=== PATIENT | male | born 1970 | race Caucasian/White ===

== ENCOUNTER 2019-04-22 02:29 | Emergency (ER) | payer MEDICAID, SELFPAY ==
[2019-04-22 02:34] VITALS: BMI 22.2
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
[2019-04-22 02:58] VITALS: RESP 16
[2019-04-22] MEDS: morphine 4 mg/mL SDV 1 mL IVP (02:58)
[2019-04-22 03:18] LABS: INR 0.99 (0.8-1.2)
[2019-04-22 03:25] LABS: Alanine Aminotransferase 14 U/L (0-41); Albumin Level 4.3 g/dL (3.5-5.2); Alkaline Phosphatase 139 IU/L (40-130); Anion Gap 15.8 (5-19); Aspartate Amino Transferase 25 U/L (0-40); Blood Urea Nitrogen 15 mg/dL (6-20); Calcium 10.9 mg/Dl (8.6-10.0); Carbon Dioxide 24 mmol/L (22-29); Chloride 103 mmol/L (98-107); Glomerular Filtration Rate 71.1 mL/min (90-130); Glucose 107 mg/dL (74-109); Potassium 3.8 mmol/L (3.5-5.1); Sodium 139 mmol/L (136-145); Total Bilirubin 1.2 mg/dL (0.15-1.2); Total Protein 7.3 g/dL (6.6-8.7)
[2019-04-22 03:31] LABS: Alcohol Level < 10 mg/dL (0-10)
[2019-04-22 03:58] LABS: Basophils % 0.1 %; Eosinophils # 0.2 10^3/uL (0.0-0.8); Eosinophils % 1.4 %; Hematocrit 40.1 % (42.0-52.0); Hemoglobin 13.5 g/dL (11.7-16.6); Lymphocytes # 3.1 10^3/uL (0.8-4.8); Lymphocytes % 25.8 %; Mean Corpuscular HGB Conc 33.7 g/dL (30.0-36.0); Mean Corpuscular Volume 86.2 fL (80-94); Mean Platelet Volume 10.7 fL (7.4-10.4); Monocytes # 0.7 10^3/uL (0.2-0.9); Monocytes % 5.5 %; Neutrophils # 7.9 10^3/uL (1.8-7.7); Neutrophils % 66.9 %; Nucleated Red Blood Cells % 0 %; Platelet Count 320 10^3/cmm (130-400); Red Blood Count 4.65 10^6/uL (4.1-5.3); Red Cell Distribution Width 13.6 % (12.1-15.1); White Blood Count 11.8 10^3/uL (4.0-10.0)
[2019-04-22] MEDS: iohexol 300 mg/mL 100 mL Btl IV (04:05)
[2019-04-22 04:52] VITALS: BP 118/79; PULSE 102; RESP 16; TEMP 36.8; O2SAT 98
== END 2019-04-22 04:53 | disposition home or self-care (01) ==
PROVIDERS: Emergency Provider Emergency Medicine; Family Provider Internal Medicine
DX: S16.1XXA Strain of muscle, fascia and tendon at neck level, initial encounter (principal); V59.9XXA Occupant (driver) (passenger) of pick-up truck or van injured in unspecified traffic accident, initial encounter; F17.210 Nicotine dependence, cigarettes, uncomplicated
CPT/HCPCS: 70450; 71260; 72125; 74177; 80053; 80307; 85025; 85610; 96375; 99281; J2270; Q9967

== ENCOUNTER 2019-05-13 10:42 | Outpatient (CLI) | payer MEDICAID, SELFPAY ==
--- NOTE | 2019-05-13 11:01 | XR_ITS ---
WS: [id number] LATERAL CERVICAL SPINE: 3 view. Lateral radiographs are performed in upright neutral, flexion and extension to the patient's toleranc e. HISTORY: NECK PAIN, CERVICAL DISC DISORDER WITH MYELOPATHY COMPARISON: 02/10/2019 Straightening and reversal normal cervical lordosis. Reversal centered at C5-6. Moderate disc space n arrowing and osteophytosis at C5, C6 and C7. No fractures. Posterior alignment is normal. With flexio n and extension no significant instability. No soft tissue abnormality. XR/XR cervical spine fl/ex [id number] IMPRESSION: 1. Straightening and slight reversal normal cervical lordosis. 2. No instability with flexion or extension. 3. Moderate spondylitic changes at C5-6 and C6-7. Similar to the prior study.
== END 2019-05-13 10:43 | disposition home or self-care (01) ==
LOC: RADWPI 10:46
PROVIDERS: Family Provider Internal Medicine; Visit Provider Licensed Practical Nurse
DX: M50.00 Cervical disc disorder with myelopathy, unspecified cervical region (principal)
CPT/HCPCS: 72040

== ENCOUNTER → 2019-05-28 08:39 | Outpatient (BNVA) | payer MEDICAID, SELFPAY | PROVIDERS: Family Provider Internal Medicine; Referring Provider Licensed Practical Nurse; Visit Provider Psychiatry & Neurology Neurology | DX: G56.02 Carpal tunnel syndrome, left upper limb (principal); M54.2 Cervicalgia; F17.210 Nicotine dependence, cigarettes, uncomplicated | CPT/HCPCS: 95886; 95910 ==

== ENCOUNTER → 2019-06-13 10:18 | Outpatient (BNVA) | payer MEDICAID, SELFPAY | PROVIDERS: Family Provider Internal Medicine; PCP Internal Medicine; Visit Provider Anesthesiology Pain Medicine | DX: M79.18 Myalgia, other site (principal); M54.12 Radiculopathy, cervical region; M54.2 Cervicalgia; M47.812 Spondylosis without myelopathy or radiculopathy, cervical region | CPT/HCPCS: 20553; 99999; J1030; J3490 ==

== ENCOUNTER 2019-06-18 11:35 | Outpatient (RCR) | payer SELFPAY | END 2019-07-08 23:59 | disposition home or self-care (01) | LOC: SPT 11:35 | PROVIDERS: Family Provider Internal Medicine; PCP Internal Medicine; Referring Provider Licensed Practical Nurse; Visit Provider Licensed Practical Nurse | DX: M54.2 Cervicalgia (principal) | CPT/HCPCS: 97110; 97161 ==

== ENCOUNTER → 2019-06-27 08:41 | Outpatient (BNVA) | payer MEDICAID, SELFPAY | PROVIDERS: Family Provider Internal Medicine; PCP Internal Medicine; Visit Provider Nurse Practitioner | DX: F15.20 Other stimulant dependence, uncomplicated (principal); F12.20 Cannabis dependence, uncomplicated; F31.32 Bipolar disorder, current episode depressed, moderate; F41.1 Generalized anxiety disorder; M47.812 Spondylosis without myelopathy or radiculopathy, cervical region; M54.12 Radiculopathy, cervical region; M79.603 Pain in arm, unspecified; M62.838 Other muscle spasm; F17.210 Nicotine dependence, cigarettes, uncomplicated | CPT/HCPCS: 90832; 99213; 99214 ==

== ENCOUNTER → 2019-07-02 14:40 | Outpatient (BNVA) | payer MEDICAID, SELFPAY | PROVIDERS: Family Provider Internal Medicine; PCP Internal Medicine; Visit Provider Anesthesiology Pain Medicine | DX: M54.2 Cervicalgia (principal); F17.210 Nicotine dependence, cigarettes, uncomplicated | CPT/HCPCS: 62321; J1100; J2001 ==

== ENCOUNTER 2019-07-09 06:00 | Outpatient (RCR) | payer SELFPAY | END 2019-08-07 23:59 | disposition home or self-care (01) | LOC: SPT 06:00 | PROVIDERS: Family Provider Internal Medicine; PCP Internal Medicine; Referring Provider Licensed Practical Nurse; Visit Provider Licensed Practical Nurse | DX: M54.2 Cervicalgia (principal) | CPT/HCPCS: 97110 ==

== ENCOUNTER → 2019-07-23 08:44 | Outpatient (BNVA) | payer MEDICAID, SELFPAY | PROVIDERS: Family Provider Internal Medicine; PCP Internal Medicine; Visit Provider Anesthesiology Pain Medicine | DX: F41.1 Generalized anxiety disorder (principal); F31.32 Bipolar disorder, current episode depressed, moderate; M54.12 Radiculopathy, cervical region; M47.812 Spondylosis without myelopathy or radiculopathy, cervical region; M62.838 Other muscle spasm; F17.210 Nicotine dependence, cigarettes, uncomplicated; Z71.6 Tobacco abuse counseling | CPT/HCPCS: 90834; 99213 ==

== ENCOUNTER → 2019-08-18 08:35 | Outpatient (BNVA) | payer MEDICAID, SELFPAY | PROVIDERS: Family Provider Internal Medicine; PCP Internal Medicine; Visit Provider Anesthesiology Pain Medicine | DX: M50.020 Cervical disc disorder with myelopathy, mid-cervical region, unspecified level (principal) | CPT/HCPCS: 62321 ==

== ENCOUNTER → 2019-08-21 13:49 | Outpatient (BNVA) | payer MEDICAID, SELFPAY | PROVIDERS: Family Provider Internal Medicine; PCP Internal Medicine; Visit Provider Anesthesiology Pain Medicine | DX: M50.020 Cervical disc disorder with myelopathy, mid-cervical region, unspecified level (principal); M54.12 Radiculopathy, cervical region; M47.812 Spondylosis without myelopathy or radiculopathy, cervical region; M25.511 Pain in right shoulder; M25.512 Pain in left shoulder; M62.838 Other muscle spasm; F17.210 Nicotine dependence, cigarettes, uncomplicated; Z71.6 Tobacco abuse counseling | CPT/HCPCS: 99213 ==

== ENCOUNTER → 2019-08-27 08:36 | Outpatient (BNVA) | payer MEDICAID, SELFPAY | PROVIDERS: Family Provider Internal Medicine; PCP Internal Medicine; Visit Provider Counselor Professional | DX: F31.32 Bipolar disorder, current episode depressed, moderate (principal); F41.1 Generalized anxiety disorder; F12.20 Cannabis dependence, uncomplicated | CPT/HCPCS: 90834 ==

== ENCOUNTER 2019-09-11 19:42 | Inpatient (IN) | payer MEDICAID, SELFPAY ==
[2019-09-11] VITALS (47 sets, daily range): BP systolic 72–120; BP diastolic 39–86; PULSE 55–78; RESP 13–27; TEMP 36.7; O2SAT 72–100; BMI 29.0
--- NOTE | 2019-09-11 19:47 | XR_ITS ---
WS: [id number] XR chest 1V portable [id number] REASON FOR EXAM: cp FINDINGS: Comparisons were made to January 11, 2018. The heart and mediastinal interfaces normal. Lung wolf are well aerated. No pneumonia, pleural effusion, pulmonary edema, or or pneumothorax. The hilum and apices normal. No osseous abnormalities. XR/XR chest 1V portable [id number] IMPRESSION: Negative chest for active pathology.
--- NOTE | 2019-09-11 19:47 | CTR_ITS ---
PROCEDURE INFORMATION: Exam: CT Angiography Chest With Contrast Exam date and time: 09/11/2019 8:07 PM Age: 48 years old Clinical indication: Abdominal tenderness; Abdominal pain; Shortness of breath; Chest pain; Prior surgery; Surgery type: Gb; Patient HX: PT took meds 2 hours prior and now lethargic and hypotensive with cp TECHNIQUE: Imaging protocol: Computed tomographic angiography of the chest with intravenous contrast. 3D rendering: MIP and/or 3D reconstructed images were created by the technologist. Radiation optimization: All CT scans at this facility use at least one of these dose optimization techniques: automated exposure control; mA and/or kV adjustment per patient size (includes targeted exams where dose is matched to clinical indication); or iterative reconstruction. Contrast material: OMNI 350; Contrast volume: 95 ml; Contrast route: IV; COMPARISON: No relevant prior studies available. RADIATION DOSE METRICS: Total DLP: 1542.04 mGy-cm FINDINGS: Pulmonary arteries: There is no pulmonary embolus. Aorta: Unremarkable. No aortic aneurysm. No aortic dissection. Lungs: There is subpleural atelectasis of the dependent portions of the lungs. Pleural space: Unremarkable. No pneumothorax. No pleural effusion. Heart: Unremarkable. No cardiomegaly. No pericardial effusion. Mediastinal space: A small hiatal hernia is present. Lymph nodes: Unremarkable. No enlarged lymph nodes. Bones/joints: Unremarkable. No acute fracture. Soft tissues: Unremarkable. IMPRESSION: 1. There is no pulmonary embolus. 2. No acute abnormality. PROCEDURE INFORMATION: Exam: CT Abdomen And Pelvis With Contrast Exam date and time: 09/11/2019 8:07 PM Age: 48 years old Clinical indication: Abdominal tenderness; Abdominal pain; Shortness of breath; Chest pain; Prior surgery; Surgery type: Gb; Patient HX: PT took meds 2 hours prior and now lethargic and hypotensive with cp TECHNIQUE: Imaging protocol: Computed tomography of the abdomen and pelvis with intravenous contrast. Radiation optimization: All CT scans at this facility use at least one of these dose optimization techniques: automated exposure control; mA and/or kV adjustment per patient size (includes targeted exams where dose is matched to clinical indication); or iterative reconstruction. Contrast material: OMNI 350; Contrast volume: 95 ml; Contrast route: IV; COMPARISON: No relevant prior studies available. RADIATION DOSE METRICS: Total DLP: 1542.04 mGy-cm FINDINGS: Liver: There is a 3.3 by 2.7 cm fluid density cyst in the liver image 20. There is a 2.1 x 2.7 cm hypodense lesion with peripheral enhancement compatible with a probable hemangioma in the left lobe of the liver. Gallbladder and bile ducts: There has been a cholecystectomy. There is no common bile duct dilation. Pancreas: Normal. No ductal dilation. Spleen: Normal. No splenomegaly. Adrenals: Normal. No mass. Kidneys and ureters: There is no evidence of hydronephrosis. There is bilateral nephrolithiasis with multiple calculi in both kidneys measuring up to 3 mm in size. There are bilateral simple renal cysts. The largest on the right measures 1.6 cm in size the largest cyst on the left measures 3.8 cm in size. Stomach and bowel: Extensive diverticulosis is present in the distal colon. There is no evidence of colitis/diverticulitis. There is no evidence of intestinal perforation or obstruction. Appendix: A normal appendix is identified. Intraperitoneal space: Unremarkable. No free air. No significant fluid collection. Vasculature: Unremarkable.No abdominal aortic aneurysm. Lymph nodes: Unremarkable.No enlarged lymph nodes. Bladder: There is nonspecific bladder wall thickening. This may be related to incomplete distention. Reproductive: Unremarkable as visualized. Bones/joints: Unremarkable. No acute fracture. Soft tissues: There is a fat-containing umbilical hernia. CT/CT angio chest w abd pel w con IMPRESSION: 1. No acute abnormality. No bowel thickening or inflammatory changes. No fluid collection 2. Liver cyst and probable hemangioma in the liver. 3. Bilateral renal cortical cysts. No follow-up is necessary. Bilateral nonobstructive nephrolithiasis. COMMENTS: Consistent with the [employer]'s Incidental Findings Committee white paper (J Am Arline Radiol 2018): Any incidental renal lesion less than 1.0 cm or classified as too small to characterize, or any incidental cystic renal lesion characterized as simple-appearing, is likely benign. No follow-up imaging is recommended for these lesions per consensus recommendations based on imaging criteria. Radiation Dose CTDIVOL = (mGy): DLP = 1542.04~1542.04 (mGy-cm)
--- NOTE | 2019-09-11 19:47 | ECG_ITS ---
Measurements Intervals [place] Rate: 72 P: 60 MD: 177 QRS: 17 QRSD: 91 T: 4 QT: 418 QTc: 460 SINUS RHYTHM Compared to ECG 01/11/2018 15:11:45 Sinus tachycardia no longer present Electronically Signed On 09-12-2019 18:01:45 CDT by Olga Vaughn M.D. [email or web address]
[2019-09-11] MEDS: sodium chloride 0.9% 1,000 ML 999 ML IV ×2 (19:52→21:05)
--- NOTE | 2019-09-11 19:57 | W.ED.CHESTPA ---
HPI - Chest Pain General: Chief Complaint: Chest Pain Stated Complaint: HYPOTENSION/ CHEST PAIN Time Seen by Provider: 09/11/19 19:43 Source: patient and EMS Mode of arrival: EMS Limitations: no limitations History of Present Illness: HPI narrative: 48-year-old male he states he has had chest pain started roughly 2 to 3 hours ago he states he started to feel lightheaded anytime he stood up he felt like he is in a pass out. When EMS arrived his blood pressure was in the 50s patient is given 2 L of blood pressures improved in the 80s. He states he is feeling better at this time. He states his pain is mild. He denies any fevers. He states he started taking Zanaflex 2 weeks ago. Denies any vomiting or diarrhea. MD complaint: chest pain Associated symptoms: Deny abdominal pain, dyspnea, fever(s), nausea or vomiting Review of Systems Const: Denies: fever(s), chills, body aches or change in appetite Eyes: Denies: blurry vision or eye discomfort ENMT: Denies: throat pain or dental pain Card: Reports: chest pain Resp: Denies: dyspnea GI: Denies: abdominal pain, nausea, vomiting or diarrhea : Denies: dysuria Musc: Denies: neck pain or back pain Skin/Breast: Denies: rash Neuro: Reports: weakness in extremities Psych: Denies: depression Gomez/Lymph: Denies: easy bruising All/Imm: Denies: urticaria PFSH ED PFSH: Medical History Bipolar disorder, current episode depressed, moderate Cannabis dependence, uncomplicated Cervical disc disorder with myelopathy of mid-cervical region Cervical radiculopathy Cervical spondylosis Generalized anxiety disorder Neck pain of over 3 months duration Other stimulant dependence, uncomplicated Surgical History History of cholecystectomy History of knee surgery had MRSA removed from left lower leg and foot Family History Brother Hypertension Grandfather Hypertension Social History Smoking and tobacco status: former smoker Alcohol intake: current Alcohol intake frequency: few times a month Alcohol type: beer Household members: family Marital status: Current occupational status: unemployed History of recent travel: No Physical Exam Const: COMMON NORMALS: no acute distress, patient oriented x3 and healthy appearing HENMT: COMMON NORMALS: normocephalic and atraumatic HEAD & SCALP: normocephalic and atraumatic Eye: COMMON NORMALS: Equal, round and reactive pupils present and EOMs intact bilaterally PUPIL: Yes Equal, round and reactive pupils present Neck/C-Spine: COMMON NORMALS: full ROM and supple Chest: COMMONS NORMALS: normal inspection of the chest and normal palpation of entire chest wall Resp: COMMON NORMALS: normal respiratory effort, No retractions, No use of accessory muscles and clear to auscultation bilaterally AUSCULTATION: clear to auscultation bilaterally Cardio: COMMON NORMALS: regular rate, regular rhythm and No murmurs present (Cardio) RATE: regular rate RHYTHM: regular rhythm GI: COMMON NORMALS: Normal to inspection, nondistended, normoactive bowel sounds present, Soft to palpation, non-tender and no masses PALPATION: Yes Soft to palpation Extremity: COMMON NORMALS: normal to inspection and full ROM Neuro: COMMON NORMALS: patient oriented x3, moves all extremities and no focal motor deficits Psych: COMMON NORMALS: mental status grossly normal, Normal thought process present and cooperative THOUGHT PROCESS: Normal thought process present Skin: COMMON NORMALS: no rashes or lesions noted and no wounds GENERAL SKIN EXAM: no rashes or lesions noted Course Vital Signs: Vital signs: Vital Signs Temperature 98.1 F 09/11/19 19:43 Pulse Rate 63 09/11/19 21:25 Respiratory Rate 22 H 09/11/19 21:25 Blood Pressure 72/39 09/11/19 21:00 Pulse Oximetry 97 09/11/19 21:25 MDM - Chest Pain MDM Narrative: Medical decision making narrative: 48-year-old male presents here with hypotension and near syncope. I believe patient's blood pressure is likely medicine related. Patient's CT chest abdomen pelvis are all normal. He has no signs of cardiac cause at this time. Patient has no signs of sepsis or infection. Patient's blood pressure is improving here after IV fluids. I spoke to hospitalist and will admit for monitoring. Lab Data: Labs: Lab Results 06/04/20 06/04/20 06/04/20 Range/Units 19:47 19:47 19:47 WBC 11.9 H (4.0-10.0) 10^3/ uL RBC 4.49 (4.1-5.3) 10^6/u L Hgb 13.1 (11.7-16.6) g/dL Hct 41.5 L (42.0-52.0) % MCV 92.4 (80-94) fL MCH 29.2 (28.0-34.0) pg MCHC 31.6 (30.0-36.0) g/dL RDW 13.6 (12.1-15.1) % Plt Count 336 (130-400) 10^3/c mm MPV 10.6 H (7.4-10.4) fL Neut % (Auto) 58.4 % Lymph % (Auto) 32.9 % Graham % (Auto) 6.5 % Eos % (Auto) 1.7 % Baso % (Auto) 0.2 % Neut # (Auto) 7.0 (1.8-7.7) 10^3/u L Lymph # (Auto) 3.9 (0.8-4.8) 10^3/u L Graham # (Auto) 0.8 (0.2-0.9) 10^3/u L Eos # (Auto) 0.2 (0.0-0.8) 10^3/u L Baso # (Auto) 0.0 (0.0-0.1) 10^3/u L Nucleated RBC % (a uto) 0 % Nucleated RBCs # 0.0 /100WBC PT 12.50 (10.5-13.3) SECO NDS INR 0.91 (0.8-1.2) Sodium 139 (136-145) mmol/L Potassium 4.3 (3.5-5.1) mmol/L Chloride 99 (98-107) mmol/L Carbon Dioxide 29 (22-29) mmol/L Anion Gap 15.3 (5-19) BUN 13 (6-20) mg/dL Creatinine 1.7 H (0.7-1.2) mg/dL GFR Calculation 43.1 L (90-130) mL/min Glucose 128 H (65-115) mg/dL Calculated Osmolal ity 286 (285-295) mOsm/k g Lactate (0.5-2.2) mmol/L Calcium 10.3 (8.5-10.5) mg/dL Total Bilirubin 0.4 (0.15-1.2) mg/dL AST 17 (0-40) U/L ALT 13 (0-41) U/L Alkaline Phosphata se 103 (40-130) IU/L Troponin T Baselin e (0-15) ng/mL Total Protein 6.8 (6.6-8.7) g/dL Albumin 4.2 (3.5-5.2) g/dL Globulin 2.6 (1.3-4.6) g/dL Lipase 29 (13-60) U/L Urine Color (Yellow) Urine Appearance (CLEAR) Urine pH (5-7) Ur Specific Gravit y (1.005-1.030) Urine Protein (Negative) Urine Glucose (UA) (Normal) Urine Ketones (Negative) Urine Blood (Negative) Urine Nitrate (Negative) Urine Bilirubin (NEGATIVE) Urine Urobilinogen (Negative) mg/dL Ur Leukocyte Annemarie ase (Negative) Urine RBC (0-2) /hpf Urine WBC (0-5) /hpf Ur Squamous Epith Cells (0-5) Ur Renal Epithelia l Cell /hpf Urine Bacteria (NONE) Hyaline Casts Urine Sperm 09/11/19 09/11/19 09/11/19 Range/Units 19:47 19:52 20:39 WBC (4.0-10.0) 10^3/ uL RBC (4.1-5.3) 10^6/u L Hgb (11.7-16.6) g/dL Hct (42.0-52.0) % MCV (80-94) fL MCH (28.0-34.0) pg MCHC (30.0-36.0) g/dL RDW (12.1-15.1) % Plt Count (130-400) 10^3/c mm MPV (7.4-10.4) fL Neut % (Auto) % Lymph % (Auto) % Graham % (Auto) % Eos % (Auto) % Baso % (Auto) % Neut # (Auto) (1.8-7.7) 10^3/u L Lymph # (Auto) (0.8-4.8) 10^3/u L Graham # (Auto) (0.2-0.9) 10^3/u L Eos # (Auto) (0.0-0.8) 10^3/u L Baso # (Auto) (0.0-0.1) 10^3/u L Nucleated RBC % (a uto) % Nucleated RBCs # /100WBC PT (10.5-13.3) SECO NDS INR (0.8-1.2) Sodium (136-145) mmol/L Potassium (3.5-5.1) mmol/L Chloride (98-107) mmol/L Carbon Dioxide (22-29) mmol/L Anion Gap (5-19) BUN (6-20) mg/dL Creatinine (0.7-1.2) mg/dL GFR Calculation (90-130) mL/min Glucose (65-115) mg/dL Calculated Osmolal ity (285-295) mOsm/k g Lactate 1.6 (0.5-2.2) mmol/L Calcium (8.5-10.5) mg/dL Total Bilirubin (0.15-1.2) mg/dL AST (0-40) U/L ALT (0-41) U/L Alkaline Phosphata se (40-130) IU/L Troponin T Baselin e 7 (0-15) ng/mL Total Protein (6.6-8.7) g/dL Albumin (3.5-5.2) g/dL Globulin (1.3-4.6) g/dL Lipase (13-60) U/L Urine Color Yellow (Yellow) Urine Appearance Hazy A (CLEAR) Urine pH 7 (5-7) Ur Specific Gravit y 1.005 (1.005-1.030) Urine Protein Neg (Negative) Urine Glucose (UA) Norm (Normal) Urine Ketones Negative (Negative) Urine Blood Neg (Negative) Urine Nitrate Negative (Negative) Urine Bilirubin Neg (NEGATIVE) Urine Urobilinogen Norm (Negative) mg/dL Ur Leukocyte Annemarie ase Negative (Negative) Urine RBC 0-4 H (0-2) /hpf Urine WBC None (0-5) /hpf Ur Squamous Epith Cells None (0-5) Ur Renal Epithelia l Cell None /hpf Urine Bacteria Trace (NONE) Hyaline Casts 0-4 H Urine Sperm 1+ Imaging Data^: CT Chest: Radiologist's impression: [facility] [address] [place] [address] CT Scan Report Signed Patient: Vivek Corral Unit #: [id number] : 1970 Age/Sex: 48 / M ADM Date: 09/11/19 Loc: ER Room/Bed: Attending Dr: Ordering Provider/Ordering MD: Nancy Sandoval MD Date of Service: 09/11/19 Procedure(s): CT angio chest w abd pel w con Accession Number(s): [id number] Report Number: [id number] PROCEDURE INFORMATION: Exam: CT Angiography Chest With Contrast Exam date and time: 09/11/2019 8:07 PM Age: 48 years old Clinical indication: Abdominal tenderness; Abdominal pain; Shortness of breath; Chest pain; Prior surgery; Surgery type: Gb; Patient HX: PT took meds 2 hours prior and now lethargic and hypotensive with cp TECHNIQUE: Imaging protocol: Computed tomographic angiography of the chest with intravenous contrast. 3D rendering: MIP and/or 3D reconstructed images were created by the technologist. Radiation optimization: All CT scans at this facility use at least one of these dose optimization techniques: automated exposure control; mA and/or kV adjustment per patient size (includes targeted exams where dose is matched to clinical indication); or iterative reconstruction. Contrast material: OMNI 350; Contrast volume: 95 ml; Contrast route: IV; COMPARISON: No relevant prior studies available. RADIATION DOSE METRICS: Total DLP: 1542.04 mGy-cm FINDINGS: Pulmonary arteries: There is no pulmonary embolus. Aorta: Unremarkable. No aortic aneurysm. No aortic dissection. Lungs: There is subpleural atelectasis of the dependent portions of the lungs. Pleural space: Unremarkable. No pneumothorax. No pleural effusion. Heart: Unremarkable. No cardiomegaly. No pericardial effusion. Mediastinal space: A small hiatal hernia is present. Lymph nodes: Unremarkable. No enlarged lymph nodes. Bones/joints: Unremarkable. No acute fracture. Soft tissues: Unremarkable. IMPRESSION: 1. There is no pulmonary embolus. 2. No acute abnormality. PROCEDURE INFORMATION: Exam: CT Abdomen And Pelvis With Contrast Exam date and time: 09/11/2019 8:07 PM Age: 48 years old Clinical indication: Abdominal tenderness; Abdominal pain; Shortness of breath; Chest pain; Prior surgery; Surgery type: Gb; Patient HX: PT took meds 2 hours prior and now lethargic and hypotensive with cp TECHNIQUE: Imaging protocol: Computed tomography of the abdomen and pelvis with intravenous contrast. Radiation optimization: All CT scans at this facility use at least one of these dose optimization techniques: automated exposure control; mA and/or kV adjustment per patient size (includes targeted exams where dose is matched to clinical indication); or iterative reconstruction. Contrast material: OMNI 350; Contrast volume: 95 ml; Contrast route: IV; COMPARISON: No relevant prior studies available. RADIATION DOSE METRICS: Total DLP: 1542.04 mGy-cm FINDINGS: Liver: There is a 3.3 by 2.7 cm fluid density cyst in the liver image 20. There is a 2.1 x 2.7 cm hypodense lesion with peripheral enhancement compatible with a probable hemangioma in the left lobe of the liver. Gallbladder and bile ducts: There has been a cholecystectomy. There is no common bile duct dilation. Pancreas: Normal. No ductal dilation. Spleen: Normal. No splenomegaly. Adrenals: Normal. No mass. Kidneys and ureters: There is no evidence of hydronephrosis. There is bilateral nephrolithiasis with multiple calculi in both kidneys measuring up to 3 mm in size. There are bilateral simple renal cysts. The largest on the right measures 1.6 cm in size the largest cyst on the left measures 3.8 cm in size. Stomach and bowel: Extensive diverticulosis is present in the distal colon. There is no evidence of colitis/diverticulitis. There is no evidence of intestinal perforation or obstruction. Appendix: A normal appendix is identified. Intraperitoneal space: Unremarkable. No free air. No significant fluid collection. Vasculature: Unremarkable.No abdominal aortic aneurysm. Lymph nodes: Unremarkable.No enlarged lymph nodes. Bladder: There is nonspecific bladder wall thickening. This may be related to incomplete distention. Reproductive: Unremarkable as visualized. Bones/joints: Unremarkable. No acute fracture. Soft tissues: There is a fat-containing umbilical hernia. CT/CT angio chest w abd pel w con IMPRESSION: 1. No acute abnormality. No bowel thickening or inflammatory changes. No fluid collection 2. Liver cyst and probable hemangioma in the liver. 3. Bilateral renal cortical cysts. No follow-up is necessary. Bilateral nonobstructive nephrolithiasis. EKG Data^: EKG 1: Attestation: I personally reviewed and interpreted this EKG as follows: EKG interpretation date: 09/11/19 EKG interpretation time: 19:56 Interpretation: nsr hr [address] or t wave abnormalities qrs 91 qtc 443 Critical Care Time Critical Care Time: Critical Care Time: Yes Total Critical Care Time: 36 Attestation: This case had a high probability of a clinically significant, sudden, or life threatening deterioration of this patient's condition which required my full and direct attention, intervention and personal management. Discharge Plan Discharge Patient Disposition: Admitted As Inpatient Clinical Impression: Near syncope, Acute hypotension Chest pain Qualifiers: Chest pain type: unspecified Qualified Code(s): R07.9 - Chest pain, unspecified Condition: Stable Referrals: JUAN LUIS TREVINO DO [Primary Care Provider] - Coding Level of Care Code ED Certified Nursing Attendant for Chg Fwd Exam Comprehensive
[2019-09-11 19:59] LABS: Basophils % 0.2 %; Eosinophils # 0.2 10^3/uL (0.0-0.8); Eosinophils % 1.7 %; Hematocrit 41.5 % (42.0-52.0); Hemoglobin 13.1 g/dL (11.7-16.6); Lymphocytes # 3.9 10^3/uL (0.8-4.8); Lymphocytes % 32.9 %; Mean Corpuscular HGB Conc 31.6 g/dL (30.0-36.0); Mean Corpuscular Hemoglobin 29.2 pg (28.0-34.0); Mean Corpuscular Volume 92.4 fL (80-94); Mean Platelet Volume 10.6 fL (7.4-10.4); Monocytes # 0.8 10^3/uL (0.2-0.9); Monocytes % 6.5 %; Neutrophils % 58.4 %; Nucleated Red Blood Cells % 0 %; Platelet Count 336 10^3/cmm (130-400); Red Blood Count 4.49 10^6/uL (4.1-5.3); Red Cell Distribution Width 13.6 % (12.1-15.1); White Blood Count 11.9 10^3/uL (4.0-10.0)
[2019-09-11 20:10] LABS: INR 0.91 (0.8-1.2)
[2019-09-11 20:14] LABS: Lactate (Lactic Acid level) 1.6 mmol/L (0.5-2.2)
[2019-09-11 20:15] LABS: Alanine Aminotransferase 13 U/L (0-41); Albumin Level 4.2 g/dL (3.5-5.2); Alkaline Phosphatase 103 IU/L (40-130); Anion Gap 15.3 (5-19); Aspartate Amino Transferase 17 U/L (0-40); Blood Urea Nitrogen 13 mg/dL (6-20); Calcium 10.3 mg/dL (8.5-10.5); Carbon Dioxide 29 mmol/L (22-29); Chloride 99 mmol/L (98-107); Globulin 2.6 g/dL (1.3-4.6); Glomerular Filtration Rate 43.1 mL/min (90-130); Glucose 128 mg/dL (65-115); Lipase 29 U/L (13-60); Osmolality Calculated 286 mOsm/kg (285-295); Potassium 4.3 mmol/L (3.5-5.1); Sodium 139 mmol/L (136-145); Total Bilirubin 0.4 mg/dL (0.15-1.2); Total Protein 6.8 g/dL (6.6-8.7)
[2019-09-11 20:17] LABS: Troponin(5th) Baseline 7 ng/mL (0-15)
[2019-09-11] MEDS: iohexol 350 mg/mL 100 mL Btl IV (20:18)
[2019-09-11 21:42] LABS: Add Urine Microscopic? YES; Bilirubin Urine Neg (NEGATIVE); Blood Urine Neg (Negative); Glucose Urine UA Norm (Normal); Ketones Urine Negative (Negative); Leukocyte Esterase Urine Negative (Negative); Nitrate Urine Negative (Negative); Protein Urine Neg (Negative); Specific Gravity, Urine 1.005 (1.005-1.030); Urine Appearance Hazy (CLEAR); Urine Color Yellow (Yellow); Urobilinogen Urine Norm (Negative); pH Urine 7 (5-7)
[2019-09-11 21:46] LABS: RBC Urine 0-4 /hpf (0-2)
[2019-09-11 21:47] LABS: Add Urine Culture? No; Bacteria Urine TRACE; Hyaline Casts Urine 0-4; Sperm Urine 1+
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
[2019-09-12] VITALS (19 sets, daily range): BP systolic 93–135; BP diastolic 55–86; PULSE 55–73; RESP 17–25; TEMP 36.4–37.1; O2SAT 95–100
--- NOTE | 2019-09-12 01:03 | USCV_ITS ---
Vivek Corral Age: 48 Gender: M : 1970 Exam Date: 09/12/2019 15:23 Ordering Phys: Lisa Fan MD Technologist: Anabella Schaffer Exam Location: [facility] [place] Indication: SYNCOPE BP: / HR: 68 Rhythm: Sinus Technical Quality: Adequate MEASUREMENTS (Male / Female) Normal Values 2D ECHO LV Diastolic Diameter PLAX 4.4 cm 4.2 - 5.9 / 3.9 - 5.3 cm LV Systolic Diameter PLAX 2.9 cm LV Chamber Size 3.8 cm IVS Diastolic Thickness 1.3 cm 0.6 - 1.0 / 0.6 - 0.9 cm IVS Systolic Thickness 1.7 cm LVPW Diastolic Thickness 1.3 cm 0.6 - 1.0 / 0.6 - 0.9 cm LVPW Systolic Thickness 1.6 cm RV Chamber Size 2.9 cm LVOT Diameter 2.1 cm LV Ejection Fraction 2D Teich 62.2 % LV Ejection Fraction MOD 2C 53.1 % LV Ejection Fraction 2C AL 55.3 % LA Diameter 3.7 cm LA Width 2.9 cm LA Height 3.7 cm RA Width 3.1 cm RA Height 3.7 cm Aorta at Sinotubular Diameter 3.6 cm M-MODE LV Diastolic Diameter MM 5.5 cm 4.2 - 5.9 / 3.9 - 5.3 cm LV Systolic Diameter MM 3.9 cm LV Ejection Fraction MM Teich 55.8 % IVS Diastolic Thickness MM 1.1 cm 0.6 - 1.0 / 0.6 - 0.9 cm IVS Systolic Thickness MM 1.3 cm LVPW Diastolic Thickness MM 1.3 cm 0.6 - 1.0 / 0.6 - 0.9 cm LVPW Systolic Thickness MM 1.4 cm RV Diastolic Diameter MM 1.1 cm Aortic Annulus Diameter 4.0 cm LA Ao Ratio MM 0.9 MV E Point Septal Separation 0.3 cm DOPPLER AV Peak Velocity 123.0 cm/s LVOT Peak Velocity 107.0 cm/s AV Area Cont Eq vti 2.7 cm squared AV Area Cont Eq pk 3.0 cm squared MV Area PHT 3.9 cm squared Mitral E to A Ratio 1.3 MV E' Velocity 12.0 cm/s Mitral E to MV E' Ratio 7.3 Mitral E to LV E' Lateral Ratio 6.3 Mitral E to LV E' Septal Ratio 8.8 TR Peak Velocity 197.5 cm/s TR Peak Gradient 15.6 mmHg TR Mean Velocity 156.5 cm/s TR Mean Gradient 10.3 mmHg TR Velocity Time Integral 58.0 cm TV Peak E Velocity 82.0 cm/s Right Atrial Pressure 3.0 mmHg Pulmonary Artery Systolic Pressu 18.6 mmHg PV Peak Velocity 60.0 cm/s RV Acceleration Time 0.1 s RV Ejection Time 0.4 s RV AcT/ET 0.3 FINDINGS Left Ventricle Normal left ventricular cavity size. No regional wall motion abnormalities. Normal left ventricular systolic function. Left ventricular ejection fraction is estimated at 55 %. Grade I/IV diastolic dysfunction (abnormal relaxation filling pattern), normal to mildly elevated filling pressures. Right Ventricle The right ventricle is normal in size and function. Right Atrium The right atrium is normal in size. Left Atrium The left atrium is normal in size. Mitral Valve Structurally normal mitral valve without significant stenosis or prolapse. There is no mitral regurgitation. Aortic Valve Mild aortic valve calcification. No aortic valve stenosis. No aortic valve regurgitation. Tricuspid Valve Structurally normal tricuspid valve without significant stenosis or regurgitation. Pulmonary artery systolic pressure is normal. Pulmonic Valve Structurally normal pulmonic valve without significant stenosis. There is no pulmonic regurgitation. Pericardium Normal pericardium without effusion. Aorta Normal ascending aorta dimension. CONCLUSIONS 1-Normal left ventricular cavity size. No regional wall motion abnormalities. Normal left ventricular systolic function. Left ventricular ejection fraction is estimated at 55 %. Grade I/IV diastolic dysfunction (abnormal relaxation filling pattern), normal to mildly elevated filling pressures. 2-There is no pericardial effusion. 3-No significant valve abnormalities. 4-Right atrial pressure is around 5 mm of mercury. 5-There are no prior echocardiogram studies to compare. Lisa Ramirez MD (Electronically Signed) Final Date: 12 September 2019 18:00 S
--- NOTE | 2019-09-12 01:47 | ECG_ITS ---
Measurements Intervals [place] Rate: 69 P: 49 UT: 163 QRS: 6 QRSD: 92 T: 10 QT: 398 QTc: 427 SINUS RHYTHM WITH SINUS ARRHYTHMIA Compared to ECG 01/11/2018 15:11:45 Sinus tachycardia no longer present Electronically Signed On 09-12-2019 18:05:22 CDT by Olga Vaughn M.D. [id number]
[2019-09-12 01:49] LABS: Basophils % 0.1 %; Eosinophils # 0.1 10^3/uL (0.0-0.8); Eosinophils % 1.3 %; Hematocrit 39.2 % (42.0-52.0); Hemoglobin 12.3 g/dL (11.7-16.6); Lymphocytes # 3.7 10^3/uL (0.8-4.8); Lymphocytes % 35.6 %; Mean Corpuscular HGB Conc 31.4 g/dL (30.0-36.0); Mean Corpuscular Hemoglobin 29.3 pg (28.0-34.0); Mean Corpuscular Volume 93.3 fL (80-94); Mean Platelet Volume 10.2 fL (7.4-10.4); Monocytes # 0.6 10^3/uL (0.2-0.9); Monocytes % 5.6 %; Neutrophils % 57.2 %; Nucleated Red Blood Cells % 0 %; Platelet Count 281 10^3/cmm (130-400); Red Cell Distribution Width 13.6 % (12.1-15.1); White Blood Count 10.5 10^3/uL (4.0-10.0)
[2019-09-12] MEDS: heparin 5,000 unit/mL INJ 1 mL 5000 UNIT SUBCUT ×3 (01:55→17:54)
[2019-09-12] MEDS: sodium chloride 0.9% 1,000 ML 75 ML IV ×2 (01:55→15:07)
[2019-09-12 02:17] LABS: Anion Gap 14.4 (5-19); Blood Urea Nitrogen 12 mg/dL (6-20); Calcium 9.6 mg/dL (8.5-10.5); Carbon Dioxide 26 mmol/L (22-29); Chloride 106 mmol/L (98-107); Glomerular Filtration Rate 64.4 mL/min (90-130); Glucose 115 mg/dL (65-115); Osmolality Calculated 291 mOsm/kg (285-295); Potassium 4.4 mmol/L (3.5-5.1); Sodium 142 mmol/L (136-145)
[2019-09-12 02:28] LABS: Thyroid Stimulating Hormone 1.03 uIU/mL (0.27-4.20)
[2019-09-12 02:44] LABS: Alcohol Level < 10 mg/dL (0-10)
[2019-09-12 03:35] LABS: Amphetamines Screen Urine Negative (Negative); Barbiturates Screen Urine Negative (Negative); Benzodiazepines Screen Urine Negative (Negative); Cocaine Screen Urine Negative (Negative); Opiate Screen Urine Negative (Negative); PCP Screen Urine Negative (Negative); THC Screen Urine Negative (Negative)
[2019-09-12] MEDS: gabapentin 300 mg Capsule PO (08:20)
--- NOTE | 2019-09-12 10:12 | PC.CHAP ---
Pastoral Care Encounter/Spiritual Assessment Type of Contact [] Declined child and adolescent therapist visit [] Patient/Family/Request visit [] Outpatient visit [] Follow-up visit [] Physician referral [] Code/Alert [x] Routine visit [] Staff referral [] Actively dying [] Patient sleeping [] Family support [] [] Out of room [] Palliative care [] [] Receiving care in room [] Pre-surgical visit [] Trauma [] Long length of stay [] ICU visit [] Other: Relational/Emotional Strength [] Patient feels connected with others/family/visitors/staff [] Distress [] Loneliness/isolation [] Abandonment Spirituality of Patient [] Person of Karen [] Attends Zoroastrian of their Karen [] Believes in Prayer [] Reads Bible or Judaism materials [] There are Spiritual issues to be addressed 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 Interventions [x] Prayer [] Active listening [] Non-anxious presence [] Spiritual/emotional support [] Crisis/trauma care [] Spiritual counseling [] Bereavement support [] Provided bereavement packet [] Provided Bible/devotional materials [] Provided toy/stuffed animal, coloring book to patient or family member [] Provided Communion [] Anointing/Shoals [] Salvation [x] Completed spiritual assessment [] Other: Impact on Illness or Injury [] Angry [] Fearful [] Anxious [] Often cries [] Exhaustion [] Unable to work [] Unable to attend moravian [] Unable to walk/stand [] Unable to read [] Unable to drive [] Unable to eat/drink [] Unable to sleep [] Unable to be with family [] Patient intubated [] Other: Summary Patient resting well. 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 Time spent with patient 10min
--- NOTE | 2019-09-12 13:22 | CT_ITS ---
WS: [id number] CT HEAD NONCONTRAST HISTORY: drowsiness TECHNIQUE: Contiguous axial imaging performed through the brain in 2.5 mm imaging. Bone and soft tiss ue windows. Sagittal and coronal reformats reviewed. All CT scans at [facility] use at ast one of these dose optimization techniques: automated exposure control; mA and/or kV adjustment pe r patient size (includes targeted exams where dose is matched to clinical indication); or iterative r econstruction. DLP: 772.52 mGy.cm COMPARISON: 04/22/2019 No acute intracranial hemorrhage, midline shift or mass effect. No atrophy or prior infarcts or herniation. Ventricles: Normal size with no hydrocephalus. Paranasal sinuses: As visualized are clear. Mastoid air cells: Well pneumatized. Calvarium and scalp: Skull is intact with no soft tissue edema or swelling. CT/CT head wo con* [id number] IMPRESSION: Negative head CT.
[2019-09-12 13:30] LABS: Glucose Point of Care 156 mg/dL (70-110)
[2019-09-12 15:12] LABS: Ammonia 41 umol/L (16-60)
[2019-09-12 15:32] LABS: Vitamin B12 208 pg/mL (232-1245)
[2019-09-12 15:37] LABS: Folate Level 5.3 ng/mL (4.5-32.2)
[2019-09-12 16:09] LABS: Thyroid Stimulating Hormone 1.07 uIU/mL (0.27-4.20)
--- NOTE | 2019-09-12 17:33 | P.PN_ITS ---
Subjective Subjective: Interval history: Admitted overnight for hypotension. H&P and labs noted. On examination today morning patient is drowsy and falling asleep during the interview. He is AO x3 when awake. Denies of having any nausea, vomiting, headache, dizziness, weakness in any of his arms or legs, dysuria, diarrhea. Vitals noted. Vitals/I&O/Wt Last Vital Signs Temp 98.2 F 09/12/19 15:39 Pulse 72 09/12/19 15:39 Resp 18 09/12/19 15:39 BP 97/55 09/12/19 15:39 Pulse Ox 96 09/12/19 15:39 09/12/19 09/12/19 09/12/19 06:59 14:59 22:59 Intake Total 400 / 400 990 / 990 Output Total 400 / 400 2099 / 2099 Balance 0 / 0 -2100 / -2100 990 / -1110 Weight last 48 hrs Weight 81.647 kg Physical Exam Narrative: EXAM NARRATIVE: General: No acute distress, AO x3, drowsy, lethargic but arousable HEENT: PERRLA, pupils bilaterally equal and reactive Chest: Normal vesicular breath sounds, no added sounds, equal good air entry bilaterally CVS: S1-S2 regular, no murmurs, no tachycardia, no gallops, no rubs Abdomen: Soft, nontender, no organomegaly, bowel sounds present Neuro: No focal deficits, no facial deformity, AO x3, power 5/5 in all limbs Data : 09/12/19 01:45 09/12/19 01:45 Micro: Microbiology 09/11/19 19:55 Blood Culture - Preliminary Blood SPECIMEN COLLECTED 09/11/19 19:52 Blood Culture - Preliminary Blood SPECIMEN COLLECTED A&P Assessment and plan (1) Acute hypotension: Status: Acute (2) Near syncope: Status: Acute (3) Generalized anxiety disorder: Status: Acute (4) Chest pain: Status: Acute Qualifiers: Chest pain type: unspecified Qualified Code(s): R07.9 - Chest pain, unspecified (5) AMS (altered mental status): Status: Acute Additional A&P Information Altered mental status: Most likely overmedication gabapentin in the setting of worsening renal functions. But cannot exclude other causes. Check lactate level, ABG, random blood sugar, CT head, ammonia level, vitamin B12 level, folate level Start patient on thiamine and folic acid given history of chronic alcoholism. Urine drug screen and alcohol levels negative.. For now hold off on gabapentin. Most likely patient will need to be discharged on lower dose of gabapentin. Presyncope due to hypotension: Most likely because of overmedication again. Continue holding off on on antihypertensive. Monitor blood pressures. Stable for now. Continue IV fluids with normal saline at 75 cc/h Continue with telemetry. Continue holding of beta-alli as patient's heart rate has been on the lower side. Atypical chest: CT chest rule out PE EKG is unremarkable Echocardiogram was ordered overnight. Results awaited. ZOEY due to hypotension and dehydration. Resolved. Continue to monitor BMP daily and IV fluids. Full code DVT prophylaxis: Heparin Cardiac diet Given extreme lethargy we will change his status from observation to inpatient. Attestations Medical Necessity Statement*: Altered mental status, presyncope, hypertension Time Spent in Patient Care: Greater than 35 minutes Coding Level of Care Code Acute Field Captain for [facility] Fwd Diagnoses Acute hypotension I95.9 Near syncope R55 Generalized anxiety disorder F41.1 Chest pain R07.9 Chest pain type: unspecified AMS (altered mental status) R41.82
[2019-09-12] MEDS: multivitamin therapeutic Tablet 1 TAB PO (17:54)
[2019-09-12 19:10] LABS: Glucose Point of Care 201 mg/dL (70-110)
--- NOTE | 2019-09-12 19:13 | PC.NURSE ---
End of Shift summary Patient has maintained a good blood pressure through out the day. Patient is A&Ox3. Respierations even and non-labored on room air Patient had a head CT and ABG done today.
--- NOTE | 2019-09-12 20:52 | ECG_ITS ---
Measurements Intervals [place] Rate: 72 P: 37 MO: 176 QRS: 6 QRSD: 86 T: 4 QT: 398 QTc: 436 SINUS RHYTHM Compared to ECG 09/12/2019 01:38:01 Sinus arrhythmia no longer present Electronically Signed On 09-13-2019 18:19:33 CDT by Lisa Ramirez M.D. [id number]
[2019-09-12] MEDS: LORazepam 2 mg/mL INJ 1 mL 0.5 MG IVP (21:21)
[2019-09-12 21:35] LABS: Troponin T (5th) Once 6 ng/L (0-15)
[2019-09-12] MEDS: lactated ringers 1,000 ML 999 ML IV (21:48)
--- NOTE | 2019-09-12 23:13 | PM.EVENT ---
Event Note Event Note: Patient started complaining of chest pain, he became hypotensive 93/60, diaphoretic, Stat EKG revealed normal sinus rhythm, I requested stat troponin as well Chest pain improved after Ativan 0.5 mg IV Event Notes Attestations Time Spent in Patient Care: less than 15 minutes
[2019-09-13] VITALS (8 sets, daily range): BP systolic 80–129; BP diastolic 45–87; PULSE 58–85; RESP 18–22; TEMP 36.5–37; O2SAT 92–99
[2019-09-13] MEDS: heparin 5,000 unit/mL INJ 1 mL 5000 UNIT SUBCUT ×3 (01:46→17:59)
[2019-09-13] MEDS: sodium chloride 0.9% 1,000 ML 75 ML IV ×2 (04:24→18:00)
[2019-09-13 05:23] LABS: Basophils % 0.1 %; Eosinophils # 0.2 10^3/uL (0.0-0.8); Eosinophils % 2.4 %; Hematocrit 36.8 % (42.0-52.0); Hemoglobin 11.7 g/dL (11.7-16.6); Lymphocytes # 3.5 10^3/uL (0.8-4.8); Lymphocytes % 44.3 %; Mean Corpuscular HGB Conc 31.8 g/dL (30.0-36.0); Mean Corpuscular Hemoglobin 29.3 pg (28.0-34.0); Mean Corpuscular Volume 92.2 fL (80-94); Mean Platelet Volume 10.5 fL (7.4-10.4); Monocytes # 0.6 10^3/uL (0.2-0.9); Monocytes % 7.3 %; Neutrophils # 3.6 10^3/uL (1.8-7.7); Neutrophils % 45.4 %; Nucleated Red Blood Cells % 0 %; Platelet Count 269 10^3/cmm (130-400); Red Blood Count 3.99 10^6/uL (4.1-5.3); Red Cell Distribution Width 13.2 % (12.1-15.1); White Blood Count 7.9 10^3/uL (4.0-10.0)
[2019-09-13 05:38] LABS: Alanine Aminotransferase 10 U/L (0-41); Albumin Level 3.7 g/dL (3.5-5.2); Alkaline Phosphatase 96 IU/L (40-130); Anion Gap 14.1 (5-19); Aspartate Amino Transferase 13 U/L (0-40); Blood Urea Nitrogen 11 mg/dL (6-20); Calcium 10.3 mg/dL (8.5-10.5); Carbon Dioxide 29 mmol/L (22-29); Chloride 103 mmol/L (98-107); Globulin 2.6 g/dL (1.3-4.6); Glomerular Filtration Rate 71.1 mL/min (90-130); Glucose 124 mg/dL (65-115); Osmolality Calculated 291 mOsm/kg (285-295); Potassium 4.1 mmol/L (3.5-5.1); Sodium 142 mmol/L (136-145); Total Bilirubin 0.3 mg/dL (0.15-1.2); Total Protein 6.3 g/dL (6.6-8.7)
[2019-09-13 05:39] LABS: Estmated Average Glucose 126
--- NOTE | 2019-09-13 08:02 | USR_ITS ---
PROCEDURE INFORMATION: Exam: US Abdomen Limited, Right Upper Quadrant Exam date and time: 09/13/2019 2:39 PM Age: 48 years old Clinical indication: Condition or disease; Other: Cirrhosis; Patient HX: H/o cholecystectomy TECHNIQUE: Imaging protocol: Real-time ultrasound of the abdomen with image documentation. Examination was focused on the right upper quadrant. COMPARISON: US gall bladder [id number] 02/09/2013 5:[address] dated 04/22/2019 FINDINGS: Liver: There is an echogenic mass in the liver measuring 2.7 x 2.6 cm suggestive of a hemangioma. There is a septated cyst in the right liver measuring 2.6 x 2.5 cm. Gallbladder: There has been a cholecystectomy. Common bile duct: Normal. No stones. No dilation. Pancreas: Not seen. Right kidney: Measures 11 x 5.5 x 5.4 cm. There are right renal calcifications. No mass. No hydronephrosis. US/US liver [id number] IMPRESSION: No acute findings. There are right renal calcifications. No hydronephrosis. There is a probable hemangioma and septated liver cyst which was also seen on the scan from 04/22/2019.
[2019-09-13] MEDS: sodium chloride 0.9% 1,000 ML 999 ML IV (08:05)
[2019-09-13] MEDS: cyanocobalamin 1,000 mcg/mL SDV 1000 MCG IM (08:10)
[2019-09-13] MEDS: pantoprazole DR 40 mg Tablet PO (08:10)
[2019-09-13] MEDS: multivitamin therapeutic Tablet 1 TAB PO (08:10)
[2019-09-13 08:52] LABS: Hepatitis A Antibody IgM Non-Reactive (Nonreactive); Hepatitis B Core AB, Total Non-Reactive (Nonreactive); Hepatitis B Surface AB 3.5 (0-8.5); Hepatitis B Surface Antigen Non-Reactive (Nonreactive); Hepatitis C Virus Antibody Non-Reactive (Nonreactive)
--- NOTE | 2019-09-13 14:39 | P.PN_ITS ---
Subjective Subjective: Interval history: No acute events overnight. On examination today patient had a systolic blood pressure of 80 mmHg and patient was mild lethargic. He was given 1 L of bolus after which his blood pressures improved. On checking appointment again in afternoon patient was a lot more awake, having full conversations denies of having any abdominal pain, nausea, headache, dizz iness, palpitations. Once his blood pressure had improved, orthostatic blood pressures were checked showed lying of 126/77 sitting 129/83 and standing 95/60 mmHg. Vitals, ins and out noted. Vitals/I&O/Wt Last Vital Signs Temp 98.5 F 09/13/19 07:40 Pulse 68 09/13/19 10:06 Resp 18 09/13/19 12:00 BP 126/77 09/13/19 10:06 Pulse Ox 92 09/13/19 07:40 09/12/19 09/13/19 09/13/19 22:59 06:59 14:59 Intake Total 1870 / 1870 2626.25 / 4496.25 720 / 720 Output Total 1000 / 3100 400 / 3500 900 / 900 Balance 870 / -1230 2226.25 / 996.25 -180 / -180 Weight last 48 hrs Weight 81.647 kg Physical Exam Narrative: EXAM NARRATIVE: General: No acute distress, AO x3, a lot more awake. HEENT: PERRLA, pupils bilaterally equal and reactive Chest: Normal vesicular breath sounds, no added sounds, equal good air entry bilaterally CVS: S1-S2 regular, no murmurs, no tachycardia, no gallops, no rubs Abdomen: Soft, nontender, no organomegaly, bowel sounds present Neuro: No focal deficits, no facial deformity, AO x3, power 5/5 in all limbs Data : 09/13/19 05:05 09/13/19 05:05 Micro: Microbiology 09/11/19 19:55 Blood Culture - Preliminary Blood NEGATIVE TO DATE 09/11/19 19:52 Blood Culture - Preliminary Blood NEGATIVE TO DATE A&P Assessment and plan (1) Acute hypotension: Status: Acute (2) Near syncope: Status: Acute (3) AMS (altered mental status): Status: Acute (4) B12 deficiency: Status: Acute (5) Orthostatic hypotension: Status: Acute (6) Generalized anxiety disorder: Status: Acute (7) Chest pain: Status: Acute Qualifiers: Chest pain type: unspecified Qualified Code(s): R07.9 - Chest pain, unspecified Additional A&P Information Altered mental status: Most likely overmedication gabapentin in the setting of worsening renal functions. But cannot exclude other causes. Patient is a lot more awake today. Lab work including lactate, CT head, ammonia level, vitamin B12 level, folate level noted. Vitamin B12 on the lower side so was given 1 dose of IM vitamin B12. We will continue on oral vitamin B12 supplementation along with multivitamins at therapeutic dose. Urine drug screen and alcohol levels negative. Continue to hold off on home medications like lisinopril, metoprolol, gabapentin. Check liver ultrasound to rule out liver cirrhosis at that could also because of persistent hypertension. Presyncope due to hypotension: Most likely because of overmedication again. Continue holding off on on antihypertensive. Orthostatics positive: Patient has been off antihypertensives, sodium levels n ormal. Most likely secondary to chronic vitamin B12 deficiency and history of chronic alcoholism. Start patient on compression stockings. Continue with telemetry. Continue holding of beta-alli as patient's heart rate has been on the lower side. ZOEY due to hypotension and dehydration: Resolved. Continue to monitor BMP daily and IV fluids. Full code DVT prophylaxis: Heparin Cardiac diet Attestations Medical Necessity Statement*: Orthostatic hypotension Time Spent in Patient Care: Greater than 35 minutes (>than 50% of time spent in counselling and/or direct pt care on unit) . Coding Level of Care Code Acute Medical Records Receptionist for [facility] Diagnoses Acute hypotension I95.9 Near syncope R55 AMS (altered mental status) R41.82 B12 deficiency E53.8 Orthostatic hypotension I95.1 Generalized anxiety disorder F41.1 Chest pain R07.9 Chest pain type: unspecified
--- NOTE | 2019-09-13 19:20 | PC.NURSE ---
pt went to bathroom, meds found at bedside, medications confiscated and placed in pyxis, Dr Zee, and in shop service technician nurse Corrina informed.
[2019-09-14] VITALS: BP 147/92; PULSE 79; RESP 16; TEMP 36.8; O2SAT 96
[2019-09-14] MEDS: heparin 5,000 unit/mL INJ 1 mL 5000 UNIT SUBCUT ×2 (00:12→08:45)
[2019-09-14 03:33] VITALS: BP 165/96; PULSE 79; RESP 22; TEMP 36.9; O2SAT 97
[2019-09-14] MEDS: acetaminophen 325 mg Tablet 650 MG PO (03:36)
[2019-09-14 07:37] VITALS: BP 148/95; PULSE 81; RESP 20; TEMP 36.7; O2SAT 96
[2019-09-14] MEDS: cyanocobalamin 1,000 mcg Tablet 500 MCG PO (08:45)
[2019-09-14] MEDS: multivitamin therapeutic Tablet 1 TAB PO (08:45)
[2019-09-14] MEDS: pantoprazole DR 40 mg Tablet PO (08:45)
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
[2019-09-14 10:29] VITALS: BP 148/95; PULSE 81; RESP 20; TEMP 36.7; O2SAT 96
[2019-09-17 12:35] LABS: ABG PCO2 42.8 mmHg (35-45); ABG PH Result 7.39 (7.35-7.45); Alveolar-Arterial Oxygen Gradi 13.4 mmHg (5-10); Arterial Blood Gas Hematocrit 37.7 % (42-52); Base Excess ABG 0.6 mmol/L (-2.0-2.0); Blood Gas Allen Test Pos; Blood Gas Sample Site Radial, right; Blood Gas Sample Type Arterial; Carboxyhemoglobin 0.9 %THgb (0.4-20.1); HCO3 ABG 25.8 mmol/L (22-26); HGB O2 Sat 95.4 % (95-100); Ionized Calcium Level - ABG 1.3 mmol/L (1.1-1.4); Oxygen Saturation ABG 97.2; PO2 ABG 82.3 mmHg (80.0-100.0); Total Hemoglobin 12.3 g/dL (14-18)
== END 2019-09-14 11:45 | disposition home or self-care (01) | DRG 684 ==
LOC: ER 22:16 → MEDSURG 23:13
PROVIDERS: Emergency Medicine; Admitting Provider Internal Medicine; PCP Internal Medicine; Visit Provider Student in an Organized Health Care Education/Training Program
DX: N17.9 Acute kidney failure, unspecified (principal); F41.1 Generalized anxiety disorder; E53.8 Deficiency of other specified B group vitamins; I95.1 Orthostatic hypotension; E86.0 Dehydration
CPT/HCPCS: 12345; 36415; 36416; 36600; 70450; 71045; 71275; 74177; 76705; 80048; 80051; 80053; 80306; 80307; 81001; 82140; 82607; 82746; 82810; 82962; 83036; 83605; 83690; 83986; 84443; 84484; 85025; 85610; 86705; 86706; 86709; 86803; 87040; 87340; 93005; 93306; 94664; 96360; 96361; 96372; 96375; 99284; 99285; G0378; J1644; J2060; J3420; J7030; Q9967

== ENCOUNTER 2019-09-11 19:42 | Emergency (ER) | payer MEDICAID, SELFPAY | END 2019-09-11 22:05 | disposition still patient (30) | LOC: ER 09-18 01:17 | PROVIDERS: Emergency Provider Emergency Medicine; PCP Internal Medicine | DX: R07.9 Chest pain, unspecified (principal); R55 Syncope and collapse; I95.9 Hypotension, unspecified; Z87.891 Personal history of nicotine dependence | CPT/HCPCS: 12345; 36415; 70450; 71045; 71275; 74177; 80048; 80053; 80306; 80307; 81001; 83605; 83690; 84443; 84484; 85025; 85610; 87040; 93005; 93306; 96360; 96361; 96372; 99284; 99285; G0378; J1644; J7030; Q9967 ==

== ENCOUNTER → 2019-09-18 08:33 | Outpatient (BNVA) | payer MEDICAID, SELFPAY | PROVIDERS: PCP Internal Medicine; Visit Provider Counselor Professional | DX: F31.32 Bipolar disorder, current episode depressed, moderate (principal); F41.1 Generalized anxiety disorder; F12.20 Cannabis dependence, uncomplicated; F15.20 Other stimulant dependence, uncomplicated | CPT/HCPCS: 90834 ==

== ENCOUNTER → 2019-09-24 08:15 | Outpatient (BNVA) | payer MEDICAID, SELFPAY | PROVIDERS: PCP Internal Medicine; Visit Provider Counselor Professional | DX: F41.1 Generalized anxiety disorder (principal); F31.32 Bipolar disorder, current episode depressed, moderate; F12.20 Cannabis dependence, uncomplicated; F15.20 Other stimulant dependence, uncomplicated | CPT/HCPCS: 90834 ==

== ENCOUNTER → 2019-09-26 13:27 | Outpatient (BNVA) | payer MEDICAID, SELFPAY | PROVIDERS: PCP Internal Medicine; Visit Provider Anesthesiology Pain Medicine | DX: M50.020 Cervical disc disorder with myelopathy, mid-cervical region, unspecified level (principal); M54.12 Radiculopathy, cervical region; M47.812 Spondylosis without myelopathy or radiculopathy, cervical region; M62.838 Other muscle spasm | CPT/HCPCS: 62321; 99213; J1100; J2001 ==

== ENCOUNTER → 2019-10-09 08:35 | Outpatient (BNVA) | payer MEDICAID, SELFPAY | PROVIDERS: PCP Internal Medicine; Visit Provider Counselor Professional | DX: M54.12 Radiculopathy, cervical region (principal); M47.812 Spondylosis without myelopathy or radiculopathy, cervical region; M62.838 Other muscle spasm; M25.511 Pain in right shoulder; M25.512 Pain in left shoulder; R51 Headache | CPT/HCPCS: 99214 ==

== ENCOUNTER → 2019-10-15 08:42 | Outpatient (BNVA) | payer MEDICAID, SELFPAY | PROVIDERS: PCP Internal Medicine; Visit Provider Counselor Professional | DX: F41.1 Generalized anxiety disorder (principal); F15.20 Other stimulant dependence, uncomplicated | CPT/HCPCS: 90832 ==

== ENCOUNTER 2019-10-16 14:21 | Emergency (ER) | payer MEDICAID, SELFPAY ==
[2019-10-16 14:59] VITALS: BP 167/115; PULSE 118; RESP 14; TEMP 36.1; O2SAT 98; BMI 31.4
[2019-10-16 16:57] LABS: Basophils % 0.1 %; Eosinophils % 0.2 %; Hematocrit 44.8 % (42.0-52.0); Hemoglobin 14.3 g/dL (11.7-16.6); Lymphocytes # 3.4 10^3/uL (0.8-4.8); Lymphocytes % 24.7 %; Mean Corpuscular HGB Conc 31.9 g/dL (30.0-36.0); Mean Corpuscular Hemoglobin 29.5 pg (28.0-34.0); Mean Corpuscular Volume 92.6 fL (80-94); Monocytes # 0.6 10^3/uL (0.2-0.9); Monocytes % 4.5 %; Neutrophils # 9.45 10^3/uL (1.8-7.7); Neutrophils % 69.3 %; Nucleated Red Blood Cells % 0 %; Platelet Count 336 10^3/cmm (130-400); Red Blood Count 4.84 10^6/uL (4.1-5.3); Red Cell Distribution Width 14.5 % (12.1-15.1); White Blood Count 13.7 10^3/uL (4.0-10.0)
[2019-10-16 17:19] LABS: Alanine Aminotransferase 19 U/L (0-41); Albumin Level 4.9 g/dL (3.5-5.2); Alkaline Phosphatase 119 IU/L (40-130); Anion Gap 17.1 (5-19); Aspartate Amino Transferase 17 U/L (0-40); Blood Urea Nitrogen 10 mg/dL (6-20); Calcium 10.4 mg/dL (8.5-10.5); Carbon Dioxide 26 mmol/L (22-29); Chloride 100 mmol/L (98-107); Globulin 2.8 g/dL (1.3-4.6); Glomerular Filtration Rate 89.7 mL/min (90-130); Glucose 109 mg/dL (65-115); Osmolality Calculated 285 mOsm/kg (285-295); Potassium 4.1 mmol/L (3.5-5.1); Sodium 139 mmol/L (136-145); Total Bilirubin 0.5 mg/dL (0.15-1.2); Total Protein 7.7 g/dL (6.6-8.7)
[2019-10-16 17:20] LABS: Troponin(5th) Baseline 6 ng/L (0-15)
--- NOTE | 2019-10-16 17:29 | ECG_ITS ---
[facility] Test Date: 2019-10-16 Pat Name: Vivek Corral Department: Room: Gender: Male Control Panel Operator: : 1970 Requested By: Nathaniel Covington Order Number: [id number] Clemencia MD: Olga Vaughn M.D. Measurements Intervals [place] Rate: 114 P: 49 CA: 160 QRS: 0 QRSD: 87 T: 30 QT: 337 QTc: 464 Interpretive Statements SINUS TACHYCARDIA ABNORMAL RHYTHM ECG Compared to ECG 10/16/2019 15:05:56 No significant changes Electronically Signed On 10-16-2019 22:30:48 CDT by Olga Vaughn M.D. [id number]
--- NOTE | 2019-10-16 18:13 | ED_ITS ---
HPI - Chest Pain General: Chief Complaint: Chest Pain Stated Complaint: bp probs Time Seen by Provider: 10/16/19 17:43 History of Present Illness: HPI narrative: Patient is a 48-year-old male that comes to the ED with chest pain. Chest pain is described in the epigastric region and it comes and goes. It worsens when he is laying flat and improves when he sitting up. He currently has on a 21-day heart monitor by his PCP to evaluate his bouts of tachycardia and irregular heartbeat. MD complaint: chest pain Onset (ago): hour(s) (Patient woke up this morning with chest pain.) Timing of current episode: episodic (Patient describes the chest pain is waxing and waning intensity.) Prior episodes: Yes (Patient said he has had prior chest pain symptoms like this.) Onset: awoke with symptoms Pain location: substernal and epigastric Pain radiation: none Severity: mild Pain scale (0-10): 6 (Pain initially was a 6 out of 10. When I spoke with patient during history and physical exam he was not currently having any chest pain.) Quality: sharp Relieving factors: sitting upright Exacerbating factors: supine Associated symptoms: Deny abdominal pain, dyspnea, fever(s), nausea, palpitations or vomiting Review of Systems Const: Denies: fever(s), chills or fatigue Eyes: Denies: change in vision or eye discomfort ENMT: Denies: throat pain, odynophagia, nasal discharge or nasal congestion Card: Reports: chest pain (epigastric); Denies: palpitations, edema, swelling of feet/ankles, dyspnea on exertion or orthopnea Resp: Denies: dyspnea, productive cough or non-productive cough GI: Denies: abdominal pain, nausea, vomiting, diarrhea, constipation or hematochezia : Denies: flank pain, difficulty urinating, dysuria or hematuria Musc: Denies: neck pain, back pain or extremity swelling Skin/Breast: Denies: rash or new lesions Neuro: Denies: headache(s), numbness in extremities or weakness in extremities PFS ED PFSH: Medical History Bipolar disorder, current episode depressed, moderate Cannabis dependence, uncomplicated Cervical disc disorder with myelopathy of mid-cervical region Cervical radiculopathy Cervical spondylosis Generalized anxiety disorder 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 Long-term use of high-risk medication Neck pain of over 3 months duration Opioid contract exists Other stimulant dependence, uncomplicated Pain management contract signed Surgical History History of cholecystectomy History of knee surgery had MRSA Family History Brother Hypertension Grandfather Hypertension Social History Smoking and tobacco status: former smoker Alcohol intake: current Alcohol intake frequency: few times a month Alcohol type: beer Household members: family Marital status: Current occupational status: unemployed History of recent travel: No Physical Exam Const: COMMON NORMALS: no acute distress, patient oriented x3 and alert GENERAL APPEARANCE: cooperative and comfortable HENMT: COMMON NORMALS: normocephalic HEAD & SCALP: normocephalic MOUTH: Normal oral and palatal mucosa present THROAT: posterior oropharynx normal and uvula midline Eye: COMMON NORMALS: Equal, round and reactive pupils present PUPIL: Yes Equal, round and reactive pupils present Neck/C-Spine: COMMON NORMALS: supple GENERAL: Yes normal visual inspection Resp: COMMON NORMALS: normal respiratory effort, No retractions, No use of accessory muscles and clear to auscultation bilaterally EFFORT & INSPECTION: Yes able to speak in complete sentences AUSCULTATION: clear to auscultation bilaterally Cardio: COMMON NORMALS: regular rhythm, S1 normal heart sound present, S2 normal heart sound present, No gallops present (Cardio), No clicks present (Cardio), No murmurs present (Cardio) and Peripheral pulses 2+ throughout RATE: tachycardic (110-120 bpm range) RHYTHM: regular rhythm HEART SOUNDS: S1 normal heart sound present and S2 normal heart sound present PERIPHERAL PULSES: Peripheral pulses 2+ throughout GI: COMMON NORMALS: Normal to inspection, nondistended, normoactive bowel sounds present, Soft to palpation and no masses PALPATION: Yes Soft to palpation and Yes Tenderness to palpation present (GI) Details: other (Tenderness upon palpation of the epigastric region. ) : COMMON NORMALS: Yes no CVA tenderness BLADDER/KIDNEY EXAM: Yes no CVA tenderness Back/Pelvis: COMMON NORMALS: no CVA tenderness Extremity: COMMON NORMALS: normal to inspection and no pedal edema Neuro: COMMON NORMALS: patient oriented x3 and moves all extremities SENSORIUM/ORIENTATION: Yes alert Skin: COMMON NORMALS: no rashes or lesions noted GENERAL SKIN EXAM: no rashes or lesions noted and dry skin Course Vital Signs: Vital signs: Vital Signs Temperature 97.0 F L 10/16/19 14:59 Pulse Rate 110 H 10/16/19 21:02 Respiratory Rate 18 10/16/19 21:02 Blood Pressure 158/106 10/16/19 21:02 Pulse Oximetry 99 10/16/19 21:02 MDM - Chest Pain MDM Narrative: Medical decision making narrative: Patient is a 48-year-old male who comes to the ED with epigastric pain. Patient woke up this morning with pain. He states that it gets worse when he is laying down and improves when he is sitting up. Physical exam showed some epigastric tenderness. EKG showed sinus tachycardia with no ST segment elevation or depression seen. First troponin was 6 and second troponin was 6 as well. White blood cell count 13.7?patient is currently taking prednisone. CMP unremarkable. Patient's blood pressure at one point was 165/125, so pt was given hydralazine and IV fluids to help with bp. GI cocktail was given and epigastric pain improved. Patient currently has a Holter monitor on and is past episodes of tachycardia and arrhythmia are being evaluated by PCP. Patient was discharged and told to follow-up with PCP in 7 to 10 days. Patient told to continue taking Protonix with epigastric pain. Return to ED if you have any worsening symptoms. Patient understood and agreed with plan. Lab Data: Attestation: I reviewed the patient's lab results. Labs: Lab Results 10/16/19 10/16/19 10/16/19 Range/Units 16:30 16:30 16:30 WBC 13.7 H (4.0-10.0) 10^3/ uL RBC 4.84 (4.1-5.3) 10^6/u L Hgb 14.3 (11.7-16.6) g/dL Hct 44.8 (42.0-52.0) % MCV 92.6 (80-94) fL MCH 29.5 (28.0-34.0) pg MCHC 31.9 (30.0-36.0) g/dL RDW 14.5 (12.1-15.1) % Plt Count 336 (130-400) 10^3/c mm MPV 10.0 (7.4-10.4) fL Neut % (Auto) 69.3 % Lymph % (Auto) 24.7 % [place] % (Auto) 4.5 % Eos % (Auto) 0.2 % Baso % (Auto) 0.1 % Neut # (Auto) 9.45 H (1.8-7.7) 10^3/u L Lymph # (Auto) 3.4 (0.8-4.8) 10^3/u L [place] # (Auto) 0.6 (0.2-0.9) 10^3/u L Eos # (Auto) 0.0 (0.0-0.8) 10^3/u L Baso # (Auto) 0.0 (0.0-0.1) 10^3/u L Nucleated RBC % (a uto) 0 % Nucleated RBCs # 0.0 /100WBC Sodium 139 (136-145) mmol/L Potassium 4.1 (3.5-5.1) mmol/L Chloride 100 (98-107) mmol/L Carbon Dioxide 26 (22-29) mmol/L Anion Gap 17.1 (5-19) BUN 10 (6-20) mg/dL Creatinine 0.9 (0.7-1.2) mg/dL GFR Calculation 89.7 L (90-130) mL/min Glucose 109 (65-115) mg/dL Calculated Osmolal ity 285 (285-295) mOsm/k g Calcium 10.4 (8.5-10.5) mg/dL Total Bilirubin 0.5 (0.15-1.2) mg/dL AST 17 (0-40) U/L ALT 19 (0-41) U/L Alkaline Phosphata se 119 (40-130) IU/L Troponin T Baselin e 6 (0-15) ng/L Troponin T 120 Min pamunkey (0-15) ng/L Delta Troponin T (0-10) ABS# Total Protein 7.7 (6.6-8.7) g/dL Albumin 4.9 (3.5-5.2) g/dL Globulin 2.8 (1.3-4.6) g/dL 10/16/19 Range/Units 18:34 WBC (4.0-10.0) 10^3/ uL RBC (4.1-5.3) 10^6/u L Hgb (11.7-16.6) g/dL Hct (42.0-52.0) % MCV (80-94) fL MCH (28.0-34.0) pg MCHC (30.0-36.0) g/dL RDW (12.1-15.1) % Plt Count (130-400) 10^3/c mm MPV (7.4-10.4) fL Neut % (Auto) % Lymph % (Auto) % [place] % (Auto) % Eos % (Auto) % Baso % (Auto) % Neut # (Auto) (1.8-7.7) 10^3/u L Lymph # (Auto) (0.8-4.8) 10^3/u L [place] # (Auto) (0.2-0.9) 10^3/u L Eos # (Auto) (0.0-0.8) 10^3/u L Baso # (Auto) (0.0-0.1) 10^3/u L Nucleated RBC % (a uto) % Nucleated RBCs # /100WBC Sodium (136-145) mmol/L Potassium (3.5-5.1) mmol/L Chloride (98-107) mmol/L Carbon Dioxide (22-29) mmol/L Anion Gap (5-19) BUN (6-20) mg/dL Creatinine (0.7-1.2) mg/dL GFR Calculation (90-130) mL/min Glucose (65-115) mg/dL Calculated Osmolal ity (285-295) mOsm/k g Calcium (8.5-10.5) mg/dL Total Bilirubin (0.15-1.2) mg/dL AST (0-40) U/L ALT (0-41) U/L Alkaline Phosphata se (40-130) IU/L Troponin T Baselin e (0-15) ng/L Troponin T 120 Min pamunkey 6.00 (0-15) ng/L Delta Troponin T 0 (0-10) ABS# Total Protein (6.6-8.7) g/dL Albumin (3.5-5.2) g/dL Globulin (1.3-4.6) g/dL Imaging Data^: CXR: Attestation: I personally reviewed and interpreted this imaging study as follows: My impression: Chest x-ray showed no acute findings. Pending final radiology report. EKG Data^: EKG 1: Attestation: I personally reviewed and interpreted this EKG as follows: EKG interpretation date: 10/16/19 Interpretation: Sinus tachycardia, 114 bpm, no ST segment elevation or depression seen, P waves present. Discharge Plan Discharge Patient Disposition: Home, Self-Care Clinical Impression: Epigastric abdominal pain Epigastric abdominal tenderness Qualifiers: Presence of rebound: absent Qualified Code(s): R10.816 - Epigastric abdominal tenderness Condition: Stable Prescriptions: No Action pantoprazole [Protonix] 20 mg tablet,delayed release (DR/EC) 20 mg PO DAILY PRN (Reason: UNKNOWN) RF: 0 tizanidine 4 mg tablet 4 mg PO TID MDD 3 PRN (Reason: muscle spasticity) Qty: 90 RF: 1 gabapentin 300 mg capsule 300 mg PO BID Qty: 30 RF: 0 aspirin 325 mg Tablet 325 mg PO DAILY PRN (Reason: unknown) RF: 0 prednisone 20 mg tablet 20 mg PO BID RF: 0 ibuprofen 200 mg Tablet 800 mg PO PRN RF: 0 Excedrin Migraine 250-250-65 mg Tablet 3 tab PO PRN RF: 0 Tums See Rx Instructions .ROUTE .COMPLEX RF: 0 metoclopramide HCl 10 mg Tablet 10 mg PO Q6H PRN (Reason: HEADACHES/MIGRAINES) RF: 0 Thera 400 mcg Tablet 1 tab PO DAILY Qty: 30 RF: 0 metoprolol tartrate 25 mg tablet 12.5 mg PO BID Qty: 30 RF: 0 Discharge Orders: Discharge Order (Routine); Ordered 10/16/19 Ordered By: Matt Kearns Referrals: JUAN LUIS TREVINO DO [Primary Care Provider] - Discharge Diet: Regular Discharge Activity: Increase activity as tolerated Patient Instructions: Gastroesophageal Reflux Disease (ED) Activity Restrictions/Additional Instructions: Follow-up with medical provider as directed in 7-10 days. Continue taking all home meds. Return to the ER or your medical provider if condition worsens. Please read and understand discharge instructions. If any questions, please ask. Discharge Date/Time: 10/16/19 21:03 Coding Level of Care Code ED Fixer Supervisor for Chg Fwd Exam Comprehensive
--- NOTE | 2019-10-16 18:22 | XRR_ITS ---
PROCEDURE INFORMATION: Exam: XR Chest, 1 View Exam date and time: 10/16/2019 6:33 PM Age: 48 years old Clinical indication: Chest pain; Type not specified; Additional info: Cp TECHNIQUE: Imaging protocol: XR of the chest Views: 1 view. COMPARISON: CR XR chest 1V portable [id number] 09/11/2019 7:59 PM FINDINGS: Lungs: Unremarkable. No consolidation. Pleural space: Unremarkable. No pleural effusion. No pneumothorax. Heart/Mediastinum: Unremarkable. No cardiomegaly. Bones/joints: Unremarkable. XR/XR chest 1V portable [id number] IMPRESSION: No acute findings.
[2019-10-16] MEDS: lidocaine 2% viscous 15 ML, aluminum-mag hydrox-simethicon 30 ML, sucralfate oral liq 1 GM PO (18:52)
[2019-10-16] MEDS: sodium chloride 0.9% 1,000 ML 999 ML IV (18:53)
[2019-10-16 19:20] VITALS: BP 159/111; PULSE 106; RESP 22; O2SAT 98
[2019-10-16 19:22] LABS: Troponin 5 2HR Delta 0 ABS# (0-10)
[2019-10-16] MEDS: hyDRALAzine 20 mg/mL INJ 1 mL 10 MG IVP (20:17)
[2019-10-16 20:21] VITALS: BP 153/110; PULSE 105; RESP 16; O2SAT 98
[2019-10-16 21:00] VITALS: BP 158/106; PULSE 102; RESP 16; O2SAT 100
[2019-10-16 21:02] VITALS: BP 158/106; PULSE 110; RESP 18; O2SAT 99
--- NOTE | 2019-10-16 21:29 | ECG_ITS ---
[facility] Test Date: 2019-10-16 Pat Name: Vivek Corral Department: Room: Gender: Male Media Planner: tra : 1970 Requested By: Nathaniel Covington Order Number: [id number] Clemencia MD: Olga Vaughn M.D. Measurements Intervals [place] Rate: 113 P: 40 NE: 153 QRS: -7 QRSD: 86 T: 23 QT: 326 QTc: 448 Interpretive Statements SINUS TACHYCARDIA Compared to ECG 09/12/2019 21:02:00 Sinus rhythm no longer present Electronically Signed On 10-16-2019 17:16:59 CDT by Olga Vaughn M.D. [id number]
== END 2019-10-16 21:03 | disposition home or self-care (01) ==
PROVIDERS: Family Medicine; Emergency Provider Physician Assistant; PCP Internal Medicine
DX: R10.816 Epigastric abdominal tenderness (principal); Z79.82 Long term (current) use of aspirin; Z87.891 Personal history of nicotine dependence
CPT/HCPCS: 12345; 71045; 80053; 84484; 85025; 93005; 96361; 96374; 96375; 99283; 99284; J0360; J7030

== ENCOUNTER → 2019-11-05 10:02 | Outpatient (BNVA) | payer MEDICAID, SELFPAY | PROVIDERS: PCP Internal Medicine; Visit Provider Anesthesiology Pain Medicine | DX: G89.29 Other chronic pain (principal); M54.12 Radiculopathy, cervical region; M47.812 Spondylosis without myelopathy or radiculopathy, cervical region; M62.838 Other muscle spasm | CPT/HCPCS: 99213 ==

== ENCOUNTER → 2019-11-06 08:17 | Outpatient (BNVA) | payer MEDICAID, SELFPAY | PROVIDERS: PCP Internal Medicine; Visit Provider Counselor Professional | DX: F31.32 Bipolar disorder, current episode depressed, moderate (principal); F41.1 Generalized anxiety disorder; F15.20 Other stimulant dependence, uncomplicated; F12.20 Cannabis dependence, uncomplicated | CPT/HCPCS: 90834 ==

== ENCOUNTER → 2019-11-14 09:15 | Outpatient (BNVA) | payer MEDICAID, SELFPAY | PROVIDERS: PCP Internal Medicine; Visit Provider Counselor Professional | DX: F31.32 Bipolar disorder, current episode depressed, moderate (principal); F41.1 Generalized anxiety disorder; F12.20 Cannabis dependence, uncomplicated | CPT/HCPCS: 90834 ==

== ENCOUNTER → 2019-11-27 09:47 | Outpatient (BNVA) | payer MEDICAID, SELFPAY | PROVIDERS: PCP Internal Medicine; Visit Provider Counselor Professional | DX: F31.32 Bipolar disorder, current episode depressed, moderate (principal); F12.20 Cannabis dependence, uncomplicated; F15.20 Other stimulant dependence, uncomplicated | CPT/HCPCS: 90834 ==

== ENCOUNTER → 2019-12-02 08:12 | Outpatient (BNVA) | payer MEDICAID, SELFPAY | PROVIDERS: PCP Internal Medicine; Visit Provider Nurse Practitioner | DX: F31.32 Bipolar disorder, current episode depressed, moderate (principal); F41.1 Generalized anxiety disorder; F12.20 Cannabis dependence, uncomplicated; F15.20 Other stimulant dependence, uncomplicated | CPT/HCPCS: 99214 ==

== ENCOUNTER → 2019-12-11 09:12 | Outpatient (BNVA) | payer MEDICAID, SELFPAY | PROVIDERS: PCP Internal Medicine; Visit Provider Counselor Professional | DX: F41.1 Generalized anxiety disorder (principal); M54.12 Radiculopathy, cervical region; M47.812 Spondylosis without myelopathy or radiculopathy, cervical region; M62.838 Other muscle spasm | CPT/HCPCS: 90832; 99213 ==

== ENCOUNTER → 2019-12-19 12:42 | Outpatient (BNVA) | payer MEDICAID, SELFPAY | PROVIDERS: PCP Nurse Practitioner Family; Visit Provider Anesthesiology Pain Medicine | DX: M50.020 Cervical disc disorder with myelopathy, mid-cervical region, unspecified level (principal); F17.210 Nicotine dependence, cigarettes, uncomplicated | CPT/HCPCS: 62321; J1100 ==

== ENCOUNTER → 2019-12-23 08:56 | Outpatient (BNVA) | payer MEDICAID, SELFPAY | PROVIDERS: PCP Internal Medicine; Visit Provider Counselor Professional | DX: F31.32 Bipolar disorder, current episode depressed, moderate (principal); F41.1 Generalized anxiety disorder; F12.20 Cannabis dependence, uncomplicated | CPT/HCPCS: 90834 ==

== ENCOUNTER → 2019-12-25 09:36 | Outpatient (BNVA) | payer MEDICAID, SELFPAY | PROVIDERS: PCP Nurse Practitioner Family; Visit Provider Anesthesiology Pain Medicine | DX: M47.812 Spondylosis without myelopathy or radiculopathy, cervical region (principal); M54.12 Radiculopathy, cervical region; M62.838 Other muscle spasm; F17.210 Nicotine dependence, cigarettes, uncomplicated | CPT/HCPCS: 99213 ==

== ENCOUNTER 2020-01-07 15:38 | Outpatient (CLI) | payer MEDICAID, SELFPAY ==
--- NOTE | 2020-01-07 15:47 | MR_ITS ---
WS: [id number] MRI CERVICAL SPINE NONCONTRAST TECHNIQUE: Sagittal T1, T2 and STIR imaging. Axial T2, gradient, and fiesta imaging. CLINICAL INFORMATION: M54.12 Radiculopathy, cervical region COMPARISON: None. FINDINGS: Straightening of the normal cervical lordosis. Cord signal is normal. Disc osteophyte complexes worse at C5-C6 and C6-C7. Slight contact of the cervical cord. Degenerative disc disease at C5-C6 and C6-C 7 has progressed slightly since 2019. C2-C3: Normal. C3-C4: Normal C4-C5: Mild disc osteophyte complex with endplate ridging. Mild facet arthropathy. Mild right and no significant left foraminal narrowing. Spinal canal is patent. C5-C6: Disc osteophyte complex with endplate ridging. Mild to moderate central canal stenosis with sl ight contact of the cervical cord. Moderate to severe right and moderate left bony foraminal narrowin g. Moderate facet arthropathy. C6-C7: Disc osteophyte complex with moderate central canal stenosis and slight contact of the cervica l cord. Severe bilateral bony foraminal narrowing. Moderate facet arthropathy. C7-T1: Mild right and no significant left foraminal narrowing. No significant disc bulging. Visualized brain stem structures: Normal. Prevertebral soft tissues: Normal. MR/MR cervical spin wo con* [id number] IMPRESSION: 1. Straightening of the normal cervical lordosis with degenerative disc diseas e worse at C5-C6 and C6-C7. This has progressed slightly since 2019 2. Moderate central canal stenosis C5-C6 and C6-C7 due to disc osteophyte comp lexes worse at C6-C7 with slight contact of the cervical cord. This appears sta ble since 2019 3. Moderate to severe bony foraminal narrowing worse at bilateral C5-C6 worse in the left and severe at bilateral C6-7. This appears progressed since 2019. 4. Cord signal is normal.
== END 2020-01-07 15:39 | disposition home or self-care (01) ==
LOC: RADWPI 15:40
PROVIDERS: Family Provider Nurse Practitioner Family; PCP Nurse Practitioner Family; Visit Provider Anesthesiology Pain Medicine
DX: M54.12 Radiculopathy, cervical region (principal); M48.02 Spinal stenosis, cervical region
CPT/HCPCS: 72141

== ENCOUNTER → 2020-01-13 09:11 | Outpatient (BNVA) | payer MEDICAID, SELFPAY | PROVIDERS: PCP Internal Medicine; Visit Provider Counselor Professional | DX: F41.1 Generalized anxiety disorder (principal) | CPT/HCPCS: 90832 ==

== ENCOUNTER → 2020-01-21 08:35 | Outpatient (BNVA) | payer MEDICAID, SELFPAY | PROVIDERS: PCP Internal Medicine; Visit Provider Counselor Professional | DX: F31.32 Bipolar disorder, current episode depressed, moderate (principal); F41.1 Generalized anxiety disorder | CPT/HCPCS: 90834; 90832 ==

== ENCOUNTER → 2020-01-22 08:59 | Outpatient (BNVA) | payer MEDICAID, SELFPAY | PROVIDERS: PCP Nurse Practitioner Family; Visit Provider Anesthesiology Pain Medicine | DX: G89.29 Other chronic pain (principal); M54.12 Radiculopathy, cervical region; M47.812 Spondylosis without myelopathy or radiculopathy, cervical region; M50.90 Cervical disc disorder, unspecified, unspecified cervical region; M62.838 Other muscle spasm; F17.210 Nicotine dependence, cigarettes, uncomplicated | CPT/HCPCS: 99213; 99214 ==

== ENCOUNTER → 2020-01-27 07:42 | Outpatient (BNVA) | payer MEDICAID, SELFPAY | PROVIDERS: PCP Nurse Practitioner Family; Visit Provider Nurse Practitioner | DX: F31.32 Bipolar disorder, current episode depressed, moderate (principal); F41.1 Generalized anxiety disorder; F12.20 Cannabis dependence, uncomplicated; F15.20 Other stimulant dependence, uncomplicated | CPT/HCPCS: 99214 ==

== ENCOUNTER → 2020-02-04 07:47 | Outpatient (BNVA) | payer MEDICAID, SELFPAY | PROVIDERS: PCP Internal Medicine; Visit Provider Counselor Professional | DX: F31.32 Bipolar disorder, current episode depressed, moderate (principal); F15.20 Other stimulant dependence, uncomplicated; F12.20 Cannabis dependence, uncomplicated | CPT/HCPCS: 90834; 90832 ==

== ENCOUNTER → 2020-02-23 08:24 | Outpatient (BNVA) | payer MEDICAID, SELFPAY | PROVIDERS: PCP Internal Medicine; Visit Provider Counselor Professional | DX: F41.1 Generalized anxiety disorder (principal) | CPT/HCPCS: 90834 ==

== ENCOUNTER 2020-02-24 11:20 | Outpatient (CLI) | payer MEDICAID, SELFPAY ==
--- NOTE | 2020-02-24 11:36 | XRR_ITS ---
PROCEDURE INFORMATION: Exam: XR Abdomen, 1 View Exam date and time: 02/24/2020 11:38 AM Age: 49 years old Clinical indication: Abdominal pain; Acute; Prior surgery; Surgery type: Gb; Additional info: Acute abdominal pain x 5 days TECHNIQUE: Imaging protocol: XR of the abdomen. Views: Frontal supine view of the abdomen. 1 View. COMPARISON: CT chest abd pel w con* 04/22/2019 4:06 AM FINDINGS: Gastrointestinal tract: No dilated gas-filled loops of bowel. Organs: Bilateral nephrolithiasis. Prior cholecystectomy. Bones/joints: No acute osseous abnormality. XR/XR KUB [id number] IMPRESSION: Bilateral nephrolithiasis.
[2020-02-24 12:17] LABS: Basophils % 0.1 %; Eosinophils # 0.2 10^3/uL (0.0-0.8); Eosinophils % 1.9 %; Hematocrit 45.4 % (42.0-52.0); Hemoglobin 14.8 g/dL (11.7-16.6); Lymphocytes # 3.3 10^3/uL (0.8-4.8); Mean Corpuscular HGB Conc 32.6 g/dL (30.0-36.0); Mean Corpuscular Volume 91.9 fL (80-94); Mean Platelet Volume 10.4 fL (7.4-10.4); Monocytes # 0.6 10^3/uL (0.2-0.9); Monocytes % 6.7 %; Neutrophils # 4.64 10^3/uL (1.8-7.7); Neutrophils % 53.1 %; Nucleated Red Blood Cells % 0 %; Platelet Count 256 10^3/cmm (130-400); Red Blood Count 4.94 10^6/uL (4.1-5.3); Red Cell Distribution Width 13.2 % (12.1-15.1); White Blood Count 8.8 10^3/uL (4.0-10.0)
== END 2020-02-24 11:21 | disposition home or self-care (01) ==
PROVIDERS: PCP Nurse Practitioner Family; Visit Provider Nurse Practitioner Family
DX: R10.9 Unspecified abdominal pain (principal); N20.0 Calculus of kidney
CPT/HCPCS: 36415; 74018; 85025

== ENCOUNTER → 2020-03-08 07:58 | Outpatient (BNVA) | payer MEDICAID, SELFPAY | PROVIDERS: PCP Nurse Practitioner Family; Visit Provider Nurse Practitioner | DX: F31.32 Bipolar disorder, current episode depressed, moderate (principal); F12.20 Cannabis dependence, uncomplicated; F15.20 Other stimulant dependence, uncomplicated; F41.1 Generalized anxiety disorder | CPT/HCPCS: 99213 ==

== ENCOUNTER → 2020-03-15 08:26 | Outpatient (BNVA) | payer MEDICAID, SELFPAY | PROVIDERS: PCP Internal Medicine; Visit Provider Counselor Professional | DX: F31.32 Bipolar disorder, current episode depressed, moderate (principal); F41.1 Generalized anxiety disorder | CPT/HCPCS: 90834 ==

== ENCOUNTER → 2020-03-17 10:52 | Outpatient (BNVA) | payer MEDICAID, SELFPAY | PROVIDERS: PCP Internal Medicine; Visit Provider Orthopaedic Surgery | DX: Z20.828 Contact with and (suspected) exposure to other viral communicable diseases (principal); Z01.812 Encounter for preprocedural laboratory examination | CPT/HCPCS: 87635 ==

== ENCOUNTER 2020-03-18 07:16 | Outpatient (CLI) | payer MEDICAID, SELFPAY ==
--- NOTE | 2020-03-18 07:15 | XR_ITS ---
WS: [id number] ABDOMEN: SUPINE FILM HISTORY: STONES COMPARISON: 02/24/2020 Prior cholecystectomy. Normal bowel gas pattern. Right kidney: There are tiny renal calcifications projecting over the RIGHT kidney. Largest stones me asure 3 mm. No ureteral calcification. Left kidney: Multiple tiny calcifications projecting over the LEFT kidney with the largest measuring 2 to 3 mm. No ureteral calcification. XR/XR KUB [id number] IMPRESSION: Bilateral nephrolithiasis. Calcific burden not significantly changed since 02/07.
== END 2020-03-18 07:17 | disposition home or self-care (01) ==
LOC: RAD 07:28
PROVIDERS: PCP Nurse Practitioner Family; Visit Provider Urology
DX: N20.0 Calculus of kidney (principal)
CPT/HCPCS: 74018; 81003

== ENCOUNTER 2020-03-19 07:50 | Outpatient (CLI) | payer MEDICAID, SELFPAY ==
--- NOTE | 2020-03-19 08:00 | CT_ITS ---
WS: [id number] CT ABDOMEN AND PELVIS NONCONTRAST HISTORY: RENAL STONE TECHNIQUE: Imaging performed through the abdomen and pelvis. Coronal and sagittal reformats are submi tted. All CT scans at [facility] use at least one of these dose optimization techniques: automated exposure control; mA and/or kV adjustment per patient size (includes targeted exams where d ose is matched to clinical indication); or iterative reconstruction. DLP: 1948.09 mGy.cm COMPARISON: 09/11/2019 Lower thorax: Lung bases are clear. Visualized heart is normal. No hiatal hernia. Liver: Slightly enlarged liver. Several hepatic cysts are stable. The largest near the nik hepatis measures 3.2 x 2.0 cm. No bile duct dilatation. Gallbladder: Prior cholecystectomy. Pancreas: Normal size and attenuation. Normal pancreatic duct. No pancreatitis or mass. Spleen: Normal. Adrenal glands: Normal. No mass. Right kidney: Normal size kidney. There are multiple small calcifications within the renal pelvis. Th e largest measuring 4 mm. No obstruction. Stone burden does appear to have increased since 09/11/2019. Left kidney: Normal size kidney with perinephric stranding. Multiple cysts are exophytic from the kid clari. The largest from the mid kidney with a maximum diameter of 3.6 cm. 2 to 3 mm nonobstructing calc ifications. No obstruction. Aorta: Mild atherosclerosis abdominal aorta with no aneurysm. No free fluid, intraperitoneal air or significant lymphadenopathy. GI tract: Extensive diverticulosis throughout the colon. No acute diverticulitis. The appendix is nor mal. Abdominal wall: Small umbilical hernia contains fat only. Pelvis: Normal. Osseous structures: Unremarkable. CT/CT kidney stone [id number] IMPRESSION: 1. Bilateral nephrolithiasis. Stone burden in the RIGHT kidney has slightly in creased. No obstruction of the kidneys. 2. LEFT renal cyst. 3. Prior cholecystectomy. 4. Hepatic cysts. 5. Ross diverticulosis without acute diverticulitis.
== END 2020-03-19 07:51 | disposition home or self-care (01) ==
LOC: RAD 07:51
PROVIDERS: PCP Nurse Practitioner Family; Visit Provider Urology
DX: N20.0 Calculus of kidney (principal); N28.1 Cyst of kidney, acquired; Z90.49 Acquired absence of other specified parts of digestive tract; K76.89 Other specified diseases of liver; K57.90 Diverticulosis of intestine, part unspecified, without perforation or abscess without bleeding
CPT/HCPCS: 74176; 81003

== ENCOUNTER 2020-03-24 05:50 | Outpatient (CLI) | payer MEDICAID, SELFPAY ==
[2020-03-19 09:06] VITALS: BMI 34.5
--- NOTE | 2020-03-19 09:18 | P.ANESASSM_ITS ---
Pre-Anesthetic Assessment Pre-Anesthetic Assessment: Height/Weight: Height 1.68 m Weight 97.069 kg Preop Diagnosis: Neck pain Proposed Procedure: Operation Date: 03/24/20 07:00 Proposed Procedures p C5/6 C6/7 Anterior Cervical Discectomy & Fusion ACDF [id number] 52721 [id number] 29453 M47.12(Not Applicable) - Bud Mcghee DO Familial anesthetic complications: None Social: Social History: Alcohol (occassionally) and Tobacco Exam: Pre-Anes Outpt Exam: alert, oriented x 3, clear to auscultation bilaterally and regular rate & rhythm Airway: Cervical ROM: WNL MP: 3 Dentition: Chipped (all over) Pulmonary: Pulmonary: IZQUIERDO CV/HEM: Comments: orthostatic hypotension Holter monitor and Echo normal GI: GI: GERD Metabolic: Comments: ? hyperparathyroidism - taking vitamin D after seeing sausage mixer Musc/skel: Musc/skel: Lower Back Pain Anesthetic Plan: ASA status: 2 Anesthesia: General Risk of > 500 ml blood loss (7ml/kg in children): No PFSH Anesthesia PFSH: Medical History (Updated 03/19/20 @ 08:46 by Jeannette Bowen RN) Bilateral renal stones Bipolar disorder, current episode depressed, moderate Cannabis dependence, uncomplicated Cervical disc disorder with myelopathy of mid-cervical region Cervical radiculopathy Cervical spondylosis Cervical spondylosis with myelopathy Generalized anxiety disorder assisted (current) use of opiate analgesic Long-term use of high-risk medication Neck pain of over 3 months duration Opioid contract exists Other stimulant dependence, uncomplicated Pain management contract signed Surgical History History of cholecystectomy History of knee surgery had MRSA Family History (Updated 03/18/20 @ 08:05 by Darlyn Coelho LPN) Brother Hypertension Grandfather Hypertension Father No problems noted. Social History (Updated 03/19/20 @ 09:06 by Jeannette Bowen RN) Smoking and tobacco status: current some day smoker cigarettes Years cigarettes smoked: 35 Number of cigarettes per day: 1-5 Quit status (tobacco): has tried quititng Number of times tried to quit tobacco: 4 Second hand smoke exposure: No Alcohol intake: current Alcohol intake frequency: few times a month Alcohol type: beer Substance/Drug Use: former Household members: family Marital status: Current occupational status: unemployed and disabled History of recent travel: No Data Anesthesia Cardiac Studies: Holter Monitor 12/21/19
--- NOTE | 2020-03-22 14:02 | PC.NURSE ---
DURING PREOP ON 03/19/20 THIS PATIENT SCORED A 9 ON SUICIDE RISK SCREENING. PATIENT PROVIDED WITH [employer] CRISIS HOTLINE NUMBER AND PATIENT SPOKE DIRECTLY WITH CHASE CORREA AT [facility] [place] [facility] CRISIS LINE WHILE NURSE WAS PRESENT.
[2020-03-24] VITALS (12 sets, daily range): BP systolic 80–122; BP diastolic 56–90; PULSE 88–102; RESP 12–20; TEMP 36.6–37; O2SAT 92–99
--- NOTE | 2020-03-24 | SCC_ITS ---
Procedure Done: 1. Anterior diskectomy C5/6 2. Anterior discectomy C6/7 3. Insertion of cage C5/6 4. Insertion of Cage C6/7 5. Instrumentation with anterior plate from C5-C7 6. Use of allograft 50.0 seconds of fluoroscopic guidance, for a cumulative dose of 9.84 mGy, was provided to Dr. Mcghee by the radiology department. C-arm images of the cervical spine were saved for the patient's permanent record. YURIDIAD
--- NOTE | 2020-03-24 | XR_ITS ---
WS: [id number] XR cervical spine 1V [id number] REASON FOR EXAM: acdf FINDINGS: Single AP view of the cervical spine, no lateral view, demonstrates an endotracheal tube in place. An terior plate and screw assembly appears to extend from C7 to C5. Interbody fusion devices presumably at C6-C7 and C5-C6. Without a lateral XR/XR cervical spine 1V [id number] IMPRESSION: Postoperative cervical spine as above. Lateral view at some point to confirm lo cation of surgical appliance.
--- NOTE | 2020-03-24 06:33 | P.ANESUD_ITS ---
Pre-Anesthetic Update Pre-Anesthetic Assessment: Date of Surgery/Procedure: 03/24/20 Preop Lorri gnosis: cervical stenosis Proposed Procedure: Operation Date: 03/24/20 07:00 Proposed Procedures p C5/6 C6/7 Anterior Cervical Discectomy & Fusion ACDF 38459 18278 28299 51423 53639 M47.12(Not Applicable) - Bud Mcghee, DO Any changes to Pre-Anesthetic Assessment?: No Last Intake: Intake Last Liquid Date 03/23/20 Last Liquid Time 23:30 Last Solid Date 03/23/20 Last Solid Time 18:00 Vitals: Temperature 98.5 F 03/24/20 06:17 Temperature Source Temporal Artery S can 03/24/20 06:17 Pulse Rate 102 H 03/24/20 06:17 Pulse Rhythm 03/24/20 06:19 Pulse Strength 3+ Normal 03/24/20 06:19 Respiratory Rate 18 03/24/20 06:17 Blood Pressure 121/86 03/24/20 06:17 Blood Pressure Sally n 97 03/24/20 06:17 Pulse Oximetry 96 03/24/20 06:17 Oxygen Delivery Me thod 03/24/20 06:19 Exam: Pre-Anes Outpt Exam: alert, oriented x 3, clear to auscultation bilaterally and regular rate & rhythm Cardiac Studies: Holter Monitor 12/21/19
--- NOTE | 2020-03-24 06:45 | W.PM.OPSUD ---
Surgery/Procedure H&P Update DATE OF PROCEDURE: March 24, 2020 DATE H&P PERFORMED: 03/24/20 H&P UPDATE INFORMATION: I have reviewed H&P completed within last 30 days, I have examined patient prior to procedure and No changes to prior documentation PREOP DIAGNOSIS: cervical stenosis PLANNED PROCEDURE: Operation Date: 03/24/20 07:00 Proposed Procedures p C5/6 C6/7 Anterior Cervical Discectomy & Fusion ACDF [id number] 70419 [id number] 82220 M47.12(Not Applicable) - Bud Mcghee DO
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
[2020-03-24] MEDS: sodium chloride 0.9% 1,000 ML 30 ML IV (07:40)
--- NOTE | 2020-03-24 08:15 | SUR.OPER ---
0753 family updated of surgical status
[2020-03-24] MEDS: thrombin 5,000 unit SDV 5000 UNIT XX (09:02)
--- NOTE | 2020-03-24 09:04 | XR_ITS ---
WS: [id number] Lateral portable cervical spine in the OR, 03/24/2020, 0929 hours Clinical Data: intra-op Comparison: None. Findings: An anterior cervical disc fusion is being performed at the C5 and probably the C6 and C7 levels. Ther e is a disc spacer at C5-C6. The C6 and C7 vertebral bodies are obscured by the patient's shoulders. XR/XR cervical spine 1ort [id number] Impression: Anterior cervical disc fusion at C5 and probably also at C6 and C7.
--- NOTE | 2020-03-24 09:51 | XR_ITS ---
WS: [id number] XR cervical spine 1Vport [id number] REASON FOR EXAM: post op FINDINGS: Anterior discectomy with anterior plate and screw fixation C5-C7 with interbody fusion devices at C5- C6 and C6-C7. Normal facet alignment and vertebral body alignment above the surgical appliance. Surgi danis appliances appear in proper position and alignment. XR/XR cervical spine 1Vport [id number] IMPRESSION: Postoperative cervical spine as above.
--- NOTE | 2020-03-24 10:29 | PM.OP ---
Operative Report Date of procedure: March 24, 2020 Pre-op Diagnosis: cervical stenosis Post-op diagnosis: same Procedure Done: 1. Anterior diskectomy C5/6 2. Anterior discectomy C6/7 3. Insertion of cage C5/6 4. Insertion of Cage C6/7 5. Instrumentation with anterior plate from C5-C7 6. Use of allograft Condition: stable Disposition: PACU Procedure: 1. Anterior diskectomy C5/6 2. Anterior discectomy C6/7 3. Insertion of cage C5/6 4. Insertion of Cage C6/7 5. Instrumentation with anterior plate from C5-C7 6. Use of allograft Patient brought the op suite after undergoing neuro monitoring was placed in the operative table all areas impingement well-padded patient's prepped and draped in a sterile fashion skin was made anteriorly platysmas identified split blunt dissection made down to the anterior spine attention was brought to the C5-6 and C6-7 disc base was confirmed under C-arm guidance the soft tissue was cleared and retractors placed in longus coli bilaterally [place] pins were placed at C5 and C6 the space was distracted and osteophytes were burred down discectomies perform using curettes Kerrison rongeurs the posterior ligament modulating was taken down the uncinate process and the foramen were opened bilaterally patient has single amount tightness in the C5-6 to space particularly on the left side this was completely opened up with Kerrison and curettes. A size 6 cage was inserted [place] pins removed and then attention was brought to the 6 7 level this was again osteophytes were burred down anteriorly discectomy was performed using curettes Kerrison Begum and nerve hook once the posterior lodging was taken down posteriorly foramen were opened bilaterally again with 2 oh Kerrison and curettes. The foramen was felt to be complete patent bilaterally posterior longitudinal was taken down and again of the size 6 cage was placed and the cages were packed with allograft which is osteoamp. Fibers. Once this was completed then a cage was placed from Rogelio. 2 screws were placed at C5-C6 and C7. To confirm the level location the C-arm was used as difficult to see the bottom of the construct due to the size the patient shows a short neck. However levels were confirmed with a flat plate. Neuro monitoring was quite the entire time except when working on C6 C56 the C6 nerve. But they come down after the nerve was completely compressed. And preposition presurgery nerves were same as postop. Wounds were irrigated in the end and platysmas closed and skin was closed with 2-0 Vicryl and Monocryl and glue patient is placed in a cervical collar and transferred to the PACU in stable condition
--- NOTE | 2020-03-24 10:55 | SUR.PHASEI ---
1025- ORAL AIRWAY REMOVED, SIMPLE MASK AT 10LPM SAT 97%
--- NOTE | 2020-03-24 12:25 | ANE.PACU2 ---
Inpatient post-anesthesia follow up: Airway intact: Yes Vital signs: Temperature 97.8 F Pulse Rate 93 Respiratory Rate 18 Blood Pressure 122/90 Pulse Oximetry 96 Oxygen Delivery Me thod Room Air Oxygen Flow Rate 2 Fraction of Inspir ed Oxygen Hydration adequate: Yes Nausea and vomiting: No Pain level: 4 Mental status: Baseline
== END 2020-03-24 12:25 | disposition home or self-care (01) ==
PROVIDERS: PCP Nurse Practitioner Family; Visit Provider Orthopaedic Surgery
PROC: 0RB30ZZ Excision of Cervical Vertebral Disc, Open Approach (ICD-10-PCS; CPT 22551; principal; 2020-03-24 07:00)
DX: M48.02 Spinal stenosis, cervical region (principal); K21.9 Gastro-esophageal reflux disease without esophagitis; E03.9 Hypothyroidism, unspecified; Z79.899 Other long term (current) drug therapy; F17.210 Nicotine dependence, cigarettes, uncomplicated; Z79.82 Long term (current) use of aspirin; F41.9 Anxiety disorder, unspecified; Z79.891 Long term (current) use of opiate analgesic
CPT/HCPCS: 12345; 72020; 76000; C1713; C9359; J0131; J0330; J0690; J1100; J2250; J2370; J2405; J2704; J3010; J3490; J7030

== ENCOUNTER → 2020-04-06 08:01 | Outpatient (BNVA) | payer MEDICAID, SELFPAY | PROVIDERS: PCP Nurse Practitioner Family; Visit Provider Counselor Professional | DX: F31.32 Bipolar disorder, current episode depressed, moderate (principal) | CPT/HCPCS: 90834 ==

== ENCOUNTER → 2020-04-20 08:18 | Outpatient (BNVA) | payer MEDICAID, SELFPAY | PROVIDERS: PCP Nurse Practitioner Family; Visit Provider Orthopaedic Surgery | DX: M47.812 Spondylosis without myelopathy or radiculopathy, cervical region (principal); Z48.89 Encounter for other specified surgical aftercare; F31.32 Bipolar disorder, current episode depressed, moderate | CPT/HCPCS: 90834; 72040 ==

== ENCOUNTER → 2020-05-03 09:02 | Outpatient (BNVA) | payer MEDICAID, SELFPAY | PROVIDERS: PCP Nurse Practitioner Family; Visit Provider Nurse Practitioner | DX: F31.32 Bipolar disorder, current episode depressed, moderate (principal); F12.20 Cannabis dependence, uncomplicated; F15.20 Other stimulant dependence, uncomplicated; F41.1 Generalized anxiety disorder | CPT/HCPCS: 99214 ==

== ENCOUNTER → 2020-05-06 09:10 | Outpatient (BNVA) | payer MEDICAID, SELFPAY | PROVIDERS: PCP Nurse Practitioner Family; Visit Provider Counselor Professional | DX: F31.32 Bipolar disorder, current episode depressed, moderate (principal); F41.1 Generalized anxiety disorder | CPT/HCPCS: 90834 ==

== ENCOUNTER → 2020-05-18 07:51 | Outpatient (BNVA) | payer MEDICAID, SELFPAY | PROVIDERS: PCP Nurse Practitioner Family; Visit Provider Counselor Professional | DX: F41.1 Generalized anxiety disorder (principal); F31.32 Bipolar disorder, current episode depressed, moderate | CPT/HCPCS: 90834 ==

== ENCOUNTER → 2020-05-25 07:48 | Outpatient (BNVA) | payer MEDICAID, SELFPAY | PROVIDERS: PCP Nurse Practitioner Family; Visit Provider Counselor Professional | DX: F31.32 Bipolar disorder, current episode depressed, moderate (principal) | CPT/HCPCS: 90834 ==

== ENCOUNTER → 2020-06-01 12:57 | Outpatient (BNVA) | payer MEDICAID, SELFPAY | PROVIDERS: PCP Nurse Practitioner Family; Visit Provider Orthopaedic Surgery | DX: M47.812 Spondylosis without myelopathy or radiculopathy, cervical region (principal); Z48.89 Encounter for other specified surgical aftercare; M47.12 Other spondylosis with myelopathy, cervical region; R20.0 Anesthesia of skin | CPT/HCPCS: 72040; 72110 ==

== ENCOUNTER → 2020-06-08 07:50 | Outpatient (BNVA) | payer MEDICAID, SELFPAY | PROVIDERS: PCP Nurse Practitioner Family; Visit Provider Nurse Practitioner | DX: F41.1 Generalized anxiety disorder (principal); F15.21 Other stimulant dependence, in remission | CPT/HCPCS: 90834 ==

== ENCOUNTER → 2020-06-09 09:02 | Outpatient (BNVA) | payer MEDICAID, SELFPAY | PROVIDERS: PCP Nurse Practitioner Family; Visit Provider Nurse Practitioner | DX: F31.32 Bipolar disorder, current episode depressed, moderate (principal); F41.1 Generalized anxiety disorder; F12.20 Cannabis dependence, uncomplicated; F15.21 Other stimulant dependence, in remission | CPT/HCPCS: 99214 ==

== ENCOUNTER 2020-06-15 06:54 | Outpatient (CLI) | payer MEDICAID, SELFPAY ==
--- NOTE | 2020-06-15 07:15 | MR_ITS ---
WS: [id number] MRI LUMBAR SPINE NONCONTRAST TECHNIQUE: Sagittal T1, T2 and STIR imaging. Axial T1 and T2 imaging. CLINICAL INFORMATION: M48.061 - Spinal stenosis, lumbar region without neurogenic claudication COMPARISON: None. FINDINGS: Mild lumbar curve. No acute compression. No high-grade central canal stenosis. L1-L2: Normal. L2-L3: Normal. L3-L4: Tiny left proximal foraminal protrusion with mild left foraminal narrowing. Mild facet arthrop athy. Spinal canal and right foramen are patent. L4-L5: Mild osteophytic ridging. Mild right greater than left foraminal narrowing. Mild facet arthrop athy. Spinal canal is patent. L5-S1: No significant disc bulging. Mild facet arthropathy. Spinal canal and foramen are patent. Partially visualized left renal cyst measuring 3.8 cm. Anterior cervical fusion C5-C7. MR/MR lumbar spine wo con* [id number] IMPRESSION: 1. Mild lumbar curve. No acute compression. No high-grade central canal stenos is. 2. Small left foraminal protrusion L3-4 with mild left foraminal narrowing and slight contact of the exiting left L3 nerve root. 3. Disc osteophytic ridging with mild bilateral L4-5 foraminal narrowing. 4. Mild facet arthropathy L3-4 and L4-L5. 5. Partially visualized left renal cyst measuring 3.7 cm
== END 2020-06-15 06:55 | disposition home or self-care (01) ==
LOC: RADSHAW 06:56
PROVIDERS: PCP Nurse Practitioner Family; Visit Provider Orthopaedic Surgery
DX: M48.061 Spinal stenosis, lumbar region without neurogenic claudication (principal); M51.26 Other intervertebral disc displacement, lumbar region; M47.816 Spondylosis without myelopathy or radiculopathy, lumbar region; N28.1 Cyst of kidney, acquired
CPT/HCPCS: 72148

== ENCOUNTER → 2020-06-17 08:36 | Outpatient (BNVA) | payer MEDICAID, SELFPAY | PROVIDERS: PCP Nurse Practitioner Family; Referring Provider Orthopaedic Surgery; Visit Provider Anesthesiology Pain Medicine | DX: M48.062 Spinal stenosis, lumbar region with neurogenic claudication (principal); M54.12 Radiculopathy, cervical region; M47.812 Spondylosis without myelopathy or radiculopathy, cervical region; M50.90 Cervical disc disorder, unspecified, unspecified cervical region; M54.16 Radiculopathy, lumbar region; M47.816 Spondylosis without myelopathy or radiculopathy, lumbar region; M62.838 Other muscle spasm; F17.210 Nicotine dependence, cigarettes, uncomplicated | CPT/HCPCS: 99215 ==

== ENCOUNTER → 2020-06-22 09:45 | Outpatient (BNVA) | payer MEDICAID, SELFPAY | PROVIDERS: PCP Nurse Practitioner Family; Visit Provider Counselor Professional | DX: F31.32 Bipolar disorder, current episode depressed, moderate (principal) | CPT/HCPCS: 90834 ==

== ENCOUNTER → 2020-06-30 12:56 | Outpatient (BNVA) | payer MEDICAID, SELFPAY | PROVIDERS: PCP Nurse Practitioner Family; Visit Provider Anesthesiology Pain Medicine | DX: M54.16 Radiculopathy, lumbar region (principal); M48.062 Spinal stenosis, lumbar region with neurogenic claudication; F17.210 Nicotine dependence, cigarettes, uncomplicated | CPT/HCPCS: 64483; 64484; J1100; J3490 ==

== ENCOUNTER → 2020-07-06 08:32 | Outpatient (BNVA) | payer MEDICAID, SELFPAY | PROVIDERS: PCP Nurse Practitioner Family; Visit Provider Counselor Professional | DX: F31.32 Bipolar disorder, current episode depressed, moderate (principal); F41.1 Generalized anxiety disorder; F12.20 Cannabis dependence, uncomplicated | CPT/HCPCS: 90834 ==

== ENCOUNTER → 2020-07-15 09:35 | Outpatient (BNVA) | payer MEDICAID, SELFPAY | PROVIDERS: PCP Nurse Practitioner Family; Visit Provider Anesthesiology Pain Medicine | DX: M48.062 Spinal stenosis, lumbar region with neurogenic claudication (principal); M54.12 Radiculopathy, cervical region; M47.812 Spondylosis without myelopathy or radiculopathy, cervical region; M50.90 Cervical disc disorder, unspecified, unspecified cervical region; M54.16 Radiculopathy, lumbar region; M47.816 Spondylosis without myelopathy or radiculopathy, lumbar region; R20.0 Anesthesia of skin; M62.838 Other muscle spasm; F17.210 Nicotine dependence, cigarettes, uncomplicated | CPT/HCPCS: 99215 ==

== ENCOUNTER → 2020-07-19 07:42 | Outpatient (BNVA) | payer MEDICAID, SELFPAY | PROVIDERS: PCP Nurse Practitioner Family; Visit Provider Counselor Professional | DX: F31.32 Bipolar disorder, current episode depressed, moderate (principal) | CPT/HCPCS: 90834 ==

== ENCOUNTER → 2020-07-21 13:45 | Outpatient (BNVA) | payer MEDICAID, SELFPAY | PROVIDERS: PCP Nurse Practitioner Family; Visit Provider Nurse Practitioner | DX: F41.1 Generalized anxiety disorder (principal); F31.32 Bipolar disorder, current episode depressed, moderate; F15.21 Other stimulant dependence, in remission | CPT/HCPCS: 99214 ==

== ENCOUNTER → 2020-07-23 12:15 | Outpatient (BNVA) | payer MEDICAID, SELFPAY | PROVIDERS: PCP Nurse Practitioner Family; Visit Provider Anesthesiology Pain Medicine | DX: G89.29 Other chronic pain (principal); M54.16 Radiculopathy, lumbar region; M48.062 Spinal stenosis, lumbar region with neurogenic claudication; M54.9 Dorsalgia, unspecified; F17.210 Nicotine dependence, cigarettes, uncomplicated | CPT/HCPCS: 64483; 64484; J1100; J3490 ==

== ENCOUNTER 2020-07-25 08:45 | Inpatient (IN) | payer MEDICAID, SELFPAY ==
[2020-07-25 08:50] VITALS: BP 175/119; PULSE 94; RESP 18; TEMP 36.5; O2SAT 98; BMI 34.7
--- NOTE | 2020-07-25 09:10 | ECG_ITS ---
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 Measurements Intervals [place] Rate: 83 P: 57 GA: 187 QRS: 11 QRSD: 80 T: 20 QT: 337 QTc: 396 Interpretive Statements SINUS RHYTHM Compared to ECG 10/16/2019 17:43:18 Sinus tachycardia no longer present Electronically Signed On 07-25-2020 10:25:07 CDT by Olga Vaughn M.D. [email or web address]
--- NOTE | 2020-07-25 09:11 | W.ED.PSYCH ---
Documented by User: ALEXANDRE Lomeli 07/25/20 11:09 HPI - Psych General: Chief Complaint: Psychiatric Symptoms Stated Complaint: SI Time Seen by Provider: 07/25/20 08:55 History of Present Illness: HPI Narrative: Patient presents with history of suicidal intentions. he states over the last 3 weeks is got seriously worse. Said he just feels like any minute he will take his life did mention razor blades or just dumpa bunch of pills?throat. Patient recently switched to Seroquel off Paxil. This proceeded his feeling worse- patient says he is not sleeping well. Having lots of nightmares. Said he cannot differentiate day between night. And cant differentiate the events always. Patient says he needs help because he is ready might take his life at any moment. MD complaint: suicidal ideation Onset (ago): week(s) Duration: constant and getting worse History of same: Yes Relieving factors: none Exacerbating factors: medication Context: new medication(s) (Just got off Paxil now on Seroquel, he has taken Seroquel in the past.) Associated psychiatric symptoms: suicidal ideation and homicidal ideation Associated symptoms: Reports homicidal ideation and suicidal ideation; Deny depression Treatments prior to arrival: none If self harm: admits thoughts of self harm Review of Systems Const: Denies: fever(s), chills or body aches Eyes: Denies: change in vision or blurry vision ENMT: Denies: throat pain or nasal congestion Card: Denies: chest pain or dyspnea on exertion Resp: Denies: dyspnea, productive cough or non-productive cough GI: Denies: abdominal pain, nausea or vomiting : Denies: difficulty urinating Musc: Denies: extremity pain Skin/Breast: Denies: rash Neuro: Denies: headache(s) Psych: Reports: anxiety, mood swings, sleeping less, suicidal ideation and homicidal ideation; Denies: depression Gomez/Lymph: Denies: easy bruising PFSH ED PFSH: Medical History Bilateral renal stones Bipolar disorder, current episode depressed, moderate Cannabis dependence, uncomplicated Cervical disc disorder with myelopathy of mid-cervical region Cervical radiculopathy Cervical spondylosis Cervical spondylosis with myelopathy Generalized anxiety disorder rn long term care (current) use of opiate analgesic Long-term use of high-risk medication Neck pain of over 3 months duration Opioid contract exists Other stimulant dependence, in remission Other stimulant dependence, in remission Other stimulant dependence, uncomplicated Pain management contract signed Surgical History History of cholecystectomy History of knee surgery had MRSA Family History Brother Hypertension Grandfather Hypertension Father No problems noted. Social History Smoking and tobacco status: current some day smoker cigarettes Years cigarettes smoked: 35 Quit status (tobacco): has tried quititng Number of times tried to quit tobacco: 4 Second hand smoke exposure: No Alcohol intake: current Alcohol intake frequency: few times a month Alcohol type: beer Household members: family Marital status: Current occupational status: unemployed and disabled History of recent travel: No Physical Exam Const: COMMON NORMALS: no acute distress, average body habitus and patient oriented x3 HENMT: COMMON NORMALS: normocephalic HEAD & SCALP: normal to inspection and normocephalic FACE & SINUS: normal facial exam Eye: COMMON NORMALS: conjunctivae normal GENERAL EYE: appearance normal, both eyes and all related structures CONJUNCTIVA: Yes conjunctivae normal Neck/C-Spine: COMMON NORMALS: no JVD Chest: COMMONS NORMALS: normal inspection of the chest Resp: COMMON NORMALS: normal respiratory effort and clear to auscultation bilaterally AUSCULTATION: clear to auscultation bilaterally Cardio: COMMON NORMALS: no JVD, regular rate and regular rhythm RATE: regular rate RHYTHM: regular rhythm GI: COMMON NORMALS: Normal to inspection, nondistended, normoactive bowel sounds present Extremity: COMMON NORMALS: normal to inspection and full ROM Neuro: COMMON NORMALS: patient oriented x3 Psych: COMMON NORMALS: mental status grossly normal, Normal thought process present and speech normal ATTITUDE: Yes calm and Yes engaged ACTIVITY/MOTOR BEHAVIOR: Yes appropriate eye contact SPEECH: Yes normal speech MOOD & AFFECT: Yes depressed mood THOUGHT PROCESS: Normal thought process present THOUGHT CONTENT: Yes Normal thought content present ATTENTION/CONCENTRATION: Yes attention grossly intact MEMORY/COGNITION: Yes memory grossly intact INSIGHT: Good insight present (Psych) MDM - Psych MDM Narrative: Medical decision making narrative: I spoke with Dr. Knox he agrees accept patient for admission as it will go ahead and put him on 96-hour hold because patient is wanting her himself. Patient was placed in 96-hour hold due to suicidal ideation and intention. I discussed the case with Dr. Aguilar. He will write admission orders Lab Data: Labs: Lab Results 07/25/20 07/25/20 07/25/20 Range/Units 09:04 09:04 09:14 WBC 10.8 H (4.0-10.0) 10^3/ uL RBC 4.93 (4.1-5.3) 10^6/u L Hgb 14.7 (11.7-16.6) g/dL Hct 46.1 (42.0-52.0) % MCV 93.5 (80-94) fL MCH 29.8 (28.0-34.0) pg MCHC 31.9 (30.0-36.0) g/dL RDW 14.7 (12.1-15.1) % Plt Count 273 (130-400) 10^3/c mm MPV 10.5 H (7.4-10.4) fL Neut % (Auto) 56.3 % Lymph % (Auto) 37.4 % Spencer % (Auto) 5.5 % Eos % (Auto) 0.1 % Baso % (Auto) 0.1 % Neut # (Auto) 6.10 (1.8-7.7) 10^3/u L Lymph # (Auto) 4.1 (0.8-4.8) 10^3/u L Spencer # (Auto) 0.6 (0.2-0.9) 10^3/u L Eos # (Auto) 0.0 (0.0-0.8) 10^3/u L Baso # (Auto) 0.0 (0.0-0.1) 10^3/u L Nucleated RBC % (a uto) 0 % Nucleated RBCs # 0.0 /100WBC Sodium (136-145) mmol/L Potassium (3.5-5.1) mmol/L Chloride (98-107) mmol/L Carbon Dioxide (22-29) mmol/L Anion Gap (5-19) BUN (6-20) mg/dL Creatinine (0.7-1.2) mg/dL GFR Calculation (90-130) mL/min Glucose (65-115) mg/dL Calculated Osmolal ity (285-295) mOsm/k g Calcium (8.5-10.5) mg/dL Total Bilirubin (0.15-1.2) mg/dL AST (0-40) U/L ALT (0-41) U/L Alkaline Phosphata se (40-130) IU/L Total Protein (6.6-8.7) g/dL Albumin (3.5-5.2) g/dL Globulin (1.3-4.6) g/dL TSH (0.27-4.20) uIU/ mL Urine Color Yellow (Yellow) Urine Appearance Clear (CLEAR) Urine pH 5 (5-7) Ur Specific Gravit y 1.025 (1.005-1.030) Urine Protein Neg (Negative) Urine Glucose (UA) Norm (Normal) Urine Ketones Negative (Negative) Urine Blood Neg (Negative) Urine Nitrate Negative (Negative) Urine Bilirubin Neg (Negative) Urine Urobilinogen Norm (Negative) mg/dL Ur Leukocyte Annemarie ase Trace H (Negative) Urine RBC None (0-2) /hpf Urine WBC 10-15 H (0-5) /hpf Ur Squamous Epith Cells None (0-5) /hpf Amorphous Sediment Not Reportable Urine Bacteria Trace (NONE) /hpf Urine Mucus 2+ /hpf Salicylates (3-10) mg/dL Urine Opiates Scre en Negative (Negative) ng/mL Acetaminophen (10-30) ug/mL Ur Barbiturates Sc reen Negative (Negative) ng/mL Ur Phencyclidine S crn Negative (Negative) ng/mL Ur Amphetamines Sc reen Negative (Negative) ng/mL U Benzodiazepines Scrn Negative (Negative) ng/mL Urine Cocaine Scre en Negative (Negative) ng/mL U Marijuana (THC) Screen Negative (Negative) ng/mL 07/25/20 Range/Units 09:14 WBC (4.0-10.0) 10^3/ uL RBC (4.1-5.3) 10^6/u L Hgb (11.7-16.6) g/dL Hct (42.0-52.0) % MCV (80-94) fL MCH (28.0-34.0) pg MCHC (30.0-36.0) g/dL RDW (12.1-15.1) % Plt Count (130-400) 10^3/c mm MPV (7.4-10.4) fL Neut % (Auto) % Lymph % (Auto) % Spencer % (Auto) % Eos % (Auto) % Baso % (Auto) % Neut # (Auto) (1.8-7.7) 10^3/u L Lymph # (Auto) (0.8-4.8) 10^3/u L Spencer # (Auto) (0.2-0.9) 10^3/u L Eos # (Auto) (0.0-0.8) 10^3/u L Baso # (Auto) (0.0-0.1) 10^3/u L Nucleated RBC % (a uto) % Nucleated RBCs # /100WBC Sodium 140 (136-145) mmol/L Potassium 3.5 (3.5-5.1) mmol/L Chloride 106 (98-107) mmol/L Carbon Dioxide 22 (22-29) mmol/L Anion Gap 15.5 (5-19) BUN 13 (6-20) mg/dL Creatinine 1.2 (0.7-1.2) mg/dL GFR Calculation 64.1 L (90-130) mL/min Glucose 100 (65-115) mg/dL Calculated Osmolal ity 290 (285-295) mOsm/k g Calcium 9.9 (8.5-10.5) mg/dL Total Bilirubin 0.4 (0.15-1.2) mg/dL AST 14 (0-40) U/L ALT 25 (0-41) U/L Alkaline Phosphata se 100 (40-130) IU/L Total Protein 7.3 (6.6-8.7) g/dL Albumin 4.4 (3.5-5.2) g/dL Globulin 2.9 (1.3-4.6) g/dL TSH 1.06 (0.27-4.20) uIU/ mL Urine Color (Yellow) Urine Appearance (CLEAR) Urine pH (5-7) Ur Specific Gravit y (1.005-1.030) Urine Protein (Negative) Urine Glucose (UA) (Normal) Urine Ketones (Negative) Urine Blood (Negative) Urine Nitrate (Negative) Urine Bilirubin (Negative) Urine Urobilinogen (Negative) mg/dL Ur Leukocyte Annemarie ase (Negative) Urine RBC (0-2) /hpf Urine WBC (0-5) /hpf Ur Squamous Epith Cells (0-5) /hpf Amorphous Sediment Urine Bacteria (NONE) /hpf Urine Mucus /hpf Salicylates < 0.3 L (3-10) mg/dL Urine Opiates Scre en (Negative) ng/mL Acetaminophen < 5.0 L (10-30) ug/mL Ur Barbiturates Sc reen (Negative) ng/mL Ur Phencyclidine S crn (Negative) ng/mL Ur Amphetamines Sc reen (Negative) ng/mL U Benzodiazepines Scrn (Negative) ng/mL Urine Cocaine Scre en (Negative) ng/mL U Marijuana (THC) Screen (Negative) ng/mL Discharge Plan Discharge Patient Disposition: Admitted As Inpatient Clinical Impression: Suicidal ideation Condition: Stable Coding Level of Care Code ED Cloth Measurer for Chg Fwd Exam Comprehensive Documented by User: Sohan Cisneros MD 07/25/20 11:22 HPI - Psych General: Chief Complaint: Psychiatric Symptoms Stated Complaint: SI Time Seen by Provider: 07/25/20 08:55 [facility] ED PFSH: Medical History Bilateral renal stones Bipolar disorder, current episode depressed, moderate Cannabis dependence, uncomplicated Cervical disc disorder with myelopathy of mid-cervical region Cervical radiculopathy Cervical spondylosis Cervical spondylosis with myelopathy Generalized anxiety disorder long-term (current) use of opiate analgesic Long-term use of high-risk medication Neck pain of over 3 months duration Opioid contract exists Other stimulant dependence, in remission Other stimulant dependence, in remission Other stimulant dependence, uncomplicated Pain management contract signed Surgical History History of cholecystectomy History of knee surgery had MRSA Family History Brother Hypertension Grandfather Hypertension Father No problems noted. Social History Smoking and tobacco status: current some day smoker cigarettes Years cigarettes smoked: 35 Quit status (tobacco): has tried quititng Number of times tried to quit tobacco: 4 Second hand smoke exposure: No Alcohol intake: current Alcohol intake frequency: few times a month Alcohol type: beer Household members: family Marital status: Current occupational status: unemployed and disabled History of recent travel: No MDM - Psych MDM Narrative: Medical decision making narrative: Amelia: I agree with plan of care. Admit orders in. Lab Data: Labs: Lab Results 07/25/20 07/25/20 07/25/20 Range/Units 09:04 09:04 09:14 WBC 10.8 H (4.0-10.0) 10^3/ uL RBC 4.93 (4.1-5.3) 10^6/u L Hgb 14.7 (11.7-16.6) g/dL Hct 46.1 (42.0-52.0) % MCV 93.5 (80-94) fL MCH 29.8 (28.0-34.0) pg MCHC 31.9 (30.0-36.0) g/dL RDW 14.7 (12.1-15.1) % Plt Count 273 (130-400) 10^3/c mm MPV 10.5 H (7.4-10.4) fL Neut % (Auto) 56.3 % Lymph % (Auto) 37.4 % Spencer % (Auto) 5.5 % Eos % (Auto) 0.1 % Baso % (Auto) 0.1 % Neut # (Auto) 6.10 (1.8-7.7) 10^3/u L Lymph # (Auto) 4.1 (0.8-4.8) 10^3/u L Spencer # (Auto) 0.6 (0.2-0.9) 10^3/u L Eos # (Auto) 0.0 (0.0-0.8) 10^3/u L Baso # (Auto) 0.0 (0.0-0.1) 10^3/u L Nucleated RBC % (a uto) 0 % Nucleated RBCs # 0.0 /100WBC Sodium (136-145) mmol/L Potassium (3.5-5.1) mmol/L Chloride (98-107) mmol/L Carbon Dioxide (22-29) mmol/L Anion Gap (5-19) BUN (6-20) mg/dL Creatinine (0.7-1.2) mg/dL GFR Calculation (90-130) mL/min Glucose (65-115) mg/dL Calculated Osmolal ity (285-295) mOsm/k g Calcium (8.5-10.5) mg/dL Total Bilirubin (0.15-1.2) mg/dL AST (0-40) U/L ALT (0-41) U/L Alkaline Phosphata se (40-130) IU/L Total Protein (6.6-8.7) g/dL Albumin (3.5-5.2) g/dL Globulin (1.3-4.6) g/dL TSH (0.27-4.20) uIU/ mL Urine Color Yellow (Yellow) Urine Appearance Clear (CLEAR) Urine pH 5 (5-7) Ur Specific Gravit y 1.025 (1.005-1.030) Urine Protein Neg (Negative) Urine Glucose (UA) Norm (Normal) Urine Ketones Negative (Negative) Urine Blood Neg (Negative) Urine Nitrate Negative (Negative) Urine Bilirubin Neg (Negative) Urine Urobilinogen Norm (Negative) mg/dL Ur Leukocyte Annemarie ase Trace H (Negative) Urine RBC None (0-2) /hpf Urine WBC 10-15 H (0-5) /hpf Ur Squamous Epith Cells None (0-5) /hpf Amorphous Sediment Not Reportable Urine Bacteria Trace (NONE) /hpf Urine Mucus 2+ /hpf Salicylates (3-10) mg/dL Urine Opiates Scre en Negative (Negative) ng/mL Acetaminophen (10-30) ug/mL Ur Barbiturates Sc reen Negative (Negative) ng/mL Ur Phencyclidine S crn Negative (Negative) ng/mL Ur Amphetamines Sc reen Negative (Negative) ng/mL U Benzodiazepines Scrn Negative (Negative) ng/mL Urine Cocaine Scre en Negative (Negative) ng/mL U Marijuana (THC) Screen Negative (Negative) ng/mL 07/25/20 Range/Units 09:14 WBC (4.0-10.0) 10^3/ uL RBC (4.1-5.3) 10^6/u L Hgb (11.7-16.6) g/dL Hct (42.0-52.0) % MCV (80-94) fL MCH (28.0-34.0) pg MCHC (30.0-36.0) g/dL RDW (12.1-15.1) % Plt Count (130-400) 10^3/c mm MPV (7.4-10.4) fL Neut % (Auto) % Lymph % (Auto) % Spencer % (Auto) % Eos % (Auto) % Baso % (Auto) % Neut # (Auto) (1.8-7.7) 10^3/u L Lymph # (Auto) (0.8-4.8) 10^3/u L Spencer # (Auto) (0.2-0.9) 10^3/u L Eos # (Auto) (0.0-0.8) 10^3/u L Baso # (Auto) (0.0-0.1) 10^3/u L Nucleated RBC % (a uto) % Nucleated RBCs # /100WBC Sodium 140 (136-145) mmol/L Potassium 3.5 (3.5-5.1) mmol/L Chloride 106 (98-107) mmol/L Carbon Dioxide 22 (22-29) mmol/L Anion Gap 15.5 (5-19) BUN 13 (6-20) mg/dL Creatinine 1.2 (0.7-1.2) mg/dL GFR Calculation 64.1 L (90-130) mL/min Glucose 100 (65-115) mg/dL Calculated Osmolal ity 290 (285-295) mOsm/k g Calcium 9.9 (8.5-10.5) mg/dL Total Bilirubin 0.4 (0.15-1.2) mg/dL AST 14 (0-40) U/L ALT 25 (0-41) U/L Alkaline Phosphata se 100 (40-130) IU/L Total Protein 7.3 (6.6-8.7) g/dL Albumin 4.4 (3.5-5.2) g/dL Globulin 2.9 (1.3-4.6) g/dL TSH 1.06 (0.27-4.20) uIU/ mL Urine Color (Yellow) Urine Appearance (CLEAR) Urine pH (5-7) Ur Specific Gravit y (1.005-1.030) Urine Protein (Negative) Urine Glucose (UA) (Normal) Urine Ketones (Negative) Urine Blood (Negative) Urine Nitrate (Negative) Urine Bilirubin (Negative) Urine Urobilinogen (Negative) mg/dL Ur Leukocyte Annemarie ase (Negative) Urine RBC (0-2) /hpf Urine WBC (0-5) /hpf Ur Squamous Epith Cells (0-5) /hpf Amorphous Sediment Urine Bacteria (NONE) /hpf Urine Mucus /hpf Salicylates < 0.3 L (3-10) mg/dL Urine Opiates Scre en (Negative) ng/mL Acetaminophen < 5.0 L (10-30) ug/mL Ur Barbiturates Sc reen (Negative) ng/mL Ur Phencyclidine S crn (Negative) ng/mL Ur Amphetamines Sc reen (Negative) ng/mL U Benzodiazepines Scrn (Negative) ng/mL Urine Cocaine Scre en (Negative) ng/mL U Marijuana (THC) Screen (Negative) ng/mL Discharge Plan Discharge Patient Disposition: Admitted As Inpatient Clinical Impression: Suicidal ideation Condition: Stable Coding Level of Care Code ED Cloth Measurer for Caty Fwd Exam Comprehensive
[2020-07-25 09:34] LABS: Basophils % 0.1 %; Eosinophils % 0.1 %; Hematocrit 46.1 % (42.0-52.0); Hemoglobin 14.7 g/dL (11.7-16.6); Lymphocytes # 4.1 10^3/uL (0.8-4.8); Lymphocytes % 37.4 %; Mean Corpuscular HGB Conc 31.9 g/dL (30.0-36.0); Mean Corpuscular Hemoglobin 29.8 pg (28.0-34.0); Mean Corpuscular Volume 93.5 fL (80-94); Mean Platelet Volume 10.5 fL (7.4-10.4); Monocytes # 0.6 10^3/uL (0.2-0.9); Monocytes % 5.5 %; Neutrophils % 56.3 %; Nucleated Red Blood Cells % 0 %; Platelet Count 273 10^3/cmm (130-400); Red Blood Count 4.93 10^6/uL (4.1-5.3); Red Cell Distribution Width 14.7 % (12.1-15.1); White Blood Count 10.8 10^3/uL (4.0-10.0)
[2020-07-25 09:45] LABS: Amphetamines Screen Urine Negative (Negative); Barbiturates Screen Urine Negative (Negative); Benzodiazepines Screen Urine Negative (Negative); Cocaine Screen Urine Negative (Negative); Opiate Screen Urine Negative (Negative); PCP Screen Urine Negative (Negative); THC Screen Urine Negative (Negative)
[2020-07-25 09:47] LABS: Add Urine Culture? No; Add Urine Microscopic? YES; Bacteria Urine TRACE /hpf; Bilirubin Urine Neg (Negative); Blood Urine Neg (Negative); Glucose Urine UA Norm (Normal); Ketones Urine Negative (Negative); Leukocyte Esterase Urine Trace (Negative); Mucus Urine 2+ /hpf; Nitrate Urine Negative (Negative); Protein Urine Neg (Negative); Specific Gravity, Urine 1.025 (1.005-1.030); Urine Appearance Clear (CLEAR); Urine Color Yellow (Yellow); Urobilinogen Urine Norm (Negative); pH Urine 5 (5-7)
[2020-07-25 09:53] VITALS: BP 153/106; PULSE 87; RESP 18; O2SAT 98
[2020-07-25 10:02] LABS: Alanine Aminotransferase 25 U/L (0-41); Albumin Level 4.4 g/dL (3.5-5.2); Alkaline Phosphatase 100 IU/L (40-130); Anion Gap 15.5 (5-19); Aspartate Amino Transferase 14 U/L (0-40); Blood Urea Nitrogen 13 mg/dL (6-20); Calcium 9.9 mg/dL (8.5-10.5); Carbon Dioxide 22 mmol/L (22-29); Chloride 106 mmol/L (98-107); Globulin 2.9 g/dL (1.3-4.6); Glomerular Filtration Rate 64.1 mL/min (90-130); Glucose 100 mg/dL (65-115); Osmolality Calculated 290 mOsm/kg (285-295); Potassium 3.5 mmol/L (3.5-5.1); Sodium 140 mmol/L (136-145); Thyroid Stimulating Hormone 1.06 uIU/mL (0.27-4.20); Total Bilirubin 0.4 mg/dL (0.15-1.2); Total Protein 7.3 g/dL (6.6-8.7)
[2020-07-25 10:03] LABS: Acetaminophen < 5.0 ug/mL (10-30); Salicylate < 0.3 mg/dL (3-10)
--- NOTE | 2020-07-25 10:06 | PC.NURSE ---
Sitter at door up Continue to monitor
[2020-07-25 11:33] VITALS: BP 142/100; PULSE 83; RESP 18; O2SAT 96
--- NOTE | 2020-07-25 11:34 | PC.NURSE ---
Stopped Paxil, started Sequeral
[2020-07-25 11:41] VITALS: BP 153/117; PULSE 88; RESP 18; TEMP 36.9
[2020-07-25 13:34] VITALS: BP 150/112; PULSE 94; RESP 17; TEMP 36.9
[2020-07-25] MEDS: metformin 500 mg Tablet PO (16:36)
[2020-07-25] MEDS: SUMAtriptan 25 mg Tablet 50 MG PO (20:41)
[2020-07-25] MEDS: metoprolol tartrate 25 mg Tablet PO (20:43)
[2020-07-25] MEDS: quetiapine 25 mg Tablet 50 MG PO (20:43)
[2020-07-25] MEDS: mirtazapine 15 mg Tablet 30 MG PO (20:43)
[2020-07-25 21:22] VITALS: BP 127/80; PULSE 98; RESP 17; TEMP 36.8; O2SAT 93
--- NOTE | 2020-07-26 05:18 | PC.NURSE ---
PM ASSESSMENT PT DENIES SI AT THIS TIME, SAYS HE WAS FEELING THIS WAY EARLIER IN THE DAY, PT CONTRACTS FOR SAFETY AT THIS TIME, DENIES HI, DENIES PAIN, REPORTS FEELING RESTLESS AND TIRED, PT IS COOPERATIVE WITH STAFF, V/S ARE WNL, HEART AND LUNG SOUNDS ARE NORMAL, NO INDICATION OF DISTRESS NOTED AT THIS TIME, WILL CONTINUE TO OBSERVE
[2020-07-26 06:00] VITALS: BP 131/91; PULSE 75; RESP 16; TEMP 36.6; O2SAT 97
[2020-07-26] MEDS: metformin 500 mg Tablet PO ×2 (08:04→17:13)
[2020-07-26] MEDS: metoprolol tartrate 25 mg Tablet PO ×2 (08:05→20:19)
[2020-07-26] MEDS: lisinopril 10 mg Tablet 20 MG PO (08:05)
[2020-07-26] MEDS: pantoprazole DR 40 mg Tablet PO (08:05)
[2020-07-26] MEDS: meloxicam 7.5 mg tablet 15 MG PO (08:05)
--- NOTE | 2020-07-26 10:27 | P.HP_ITS ---
Providers/Chief Complaint Admitting Physician: Kristofer Knox DO Primary Care Provider: Nishant Reynoso NP Chief Complaint: SI HPI NPU History of Present Illness Vivek Corral is a 49 year old male with a history of bipolar disorder presented to the emergency department with complaint of worsening depression over the past several weeks with worsening suicidal ideation over the past week stating that he had the intent of cutting his wrist with a razor blade. Patient has multiple past suicide attempts starting in his late 30s with most recent attempt several years ago. Patient also reports that he has had thoughts about overdosing on pills. Patient states that he has been feeling restless, irritable and angry and reports having racing thoughts and lots of energy but does not know what to do with that. He denies any hallucinations and denies any delusions. He reports being compliant with his medication and outpatient medication management follow-up and states that his medication had been recently changed a few days ago stopping Paxil and starting a low-dose of Seroquel at bedtime but has noticed little effect. Patient reports having difficulty going to sleep secondary to his mood symptoms and has not been feeling rested. Patient has a history of past substance use with methamphetamine but states that he has not used for 7 to 9 months. He did report having a couple shots of liquor the other night because of his difficulty sleeping but has no intentions of continuing to drink or using this as a means to help with his current situation. Psychiatric review of systems is otherwise negative Review of Systems General: Reports: 10 or more systems reviewed and unremarkable except in HPI and below Meds NPU Home Medications Medication Instructions Recorded Confirmed Last Taken Type metoclopramide HCl [Reglan] 10 mg PO Q6H PRN 09/11/19 07/25/20 07/25/20 History erenumab-aooe 70 mg/mL 70 mg SUBCUT Q30D ea 03/03/20 07/25/20 03/16/20 History subcutaneous auto-injector sumatriptan succinate 50 mg tablet 50 mg PO Q2H PRN 03/03/20 07/25/20 07/25/20 History cholecalciferol (vitamin D3) 125 50,000 unit PO Q7D tab 03/18/20 07/25/20 07/25/20 History mcg (5,000 unit) tablet metformin 500 mg tablet 500 mg PO BID 06/30/20 07/25/2007/25/21 History lisinopril 10 mg tablet 20 mg PO DAILY tab 07/21/20 07/25/20 07/25/20 History Remeron 15 mg PO BEDTIME 07/25/20 07/25/20 07/24/20 History Seroquel 50 mg PO BEDTIME 07/25/20 07/25/20 07/24/20 History meloxicam 15 mg PO DAILY 07/25/20 07/25/20 07/25/20 History metoprolol tartrate 25 mg PO BID 07/25/20 07/25/20 07/25/20 History pantoprazole 40 mg PO DAILY 07/25/20 07/25/20 07/24/20 History Allergies Allergy/AdvReac Type Severity Reaction Status Date / Time sulfamethoxazole Allergy SWOLLEN Verified 07/25/20 08:57 [From ] TONGUE trimethoprim [From ] Allergy SWOLLEN Verified 07/25/20 08:57 TONGUE PFSH NPU PFSH: Medical History Bilateral renal stones Bipolar disorder, current episode depressed, moderate Cannabis dependence, uncomplicated Cervical disc disorder with myelopathy of mid-cervical region Cervical radiculopathy Cervical spondylosis Cervical spondylosis with myelopathy Generalized anxiety disorder senior care (current) use of opiate analgesic Long-term use of high-risk medication Neck pain of over 3 months duration Opioid contract exists Other stimulant dependence, in remission Other stimulant dependence, in remission Other stimulant dependence, uncomplicated Pain management contract signed Surgical History History of cholecystectomy History of knee surgery had MRSA Family History Brother Hypertension Grandfather Hypertension Father No problems noted. Social History Smoking and tobacco status: current some day smoker cigarettes Years cigarettes smoked: 35 Quit status (tobacco): has tried quititng Number of times tried to quit tobacco: 4 Second hand smoke exposure: No Alcohol intake: current Alcohol intake frequency: few times a month Alcohol type: beer Household members: family Marital status: Current occupational status: unemployed and disabled History of recent travel: No Other Psychiatric History: Other Psychiatric History: Patient states that his contact with mental health has not been until 10 to 15 years ago, reports that he is currently followed by [facility] for medication management Reports past psychiatric hospitalizations but denies any recent psychiatric hospitalizations Reports history of multiple suicide attempts with last attempt several years ago by trying to cut his wrist but also reports past overdose attempts Mental Status Exam MSE Comments: Appears older than stated age, disheveled, tired appearing, obese, wearing hospital scrubs, slow steady gait, fair eye contact Psychomotor activity is somewhat restless, no agitation Speech is low volume, somewhat slow rate, spontaneous, not pressured I feel horrible, congruent affect, not labile Alert and oriented to person, place, time, situation Memory and concentration appear to be fair to intact per interview Intellectual functioning appears to be average based on vocabulary, interview Thought process, linear, no flight of ideas, no looseness of association Thought content, no delusions, no hallucinations, passive suicidal thoughts with no active intent or plan, no homicidal ideation Insight and judgment appear to be fair Vitals/I&O/Wt Last Vital Signs Temp 97.9 F 07/26/20 06:00 Pulse 75 07/26/20 06:00 Resp 16 07/26/20 06:00 BP 131/91 07/26/20 06:00 Pulse Ox 97 07/26/20 06:00 Weight last 48 hrs Weight 97.522 kg Data NPU : 07/25/20 09:14 07/25/20 09:14 A&P Assessment and plan (1) Bipolar disorder, unspecified: Status: Acute Qualifiers: Current bipolar episode type: mixed Active/Remission status: currently active Current episode severity: moderate Qualified Code(s): F31.62 - Bipolar disorder, current episode mixed, moderate (2) Suicidal ideation: Status: Acute Additional A&P Information History of bipolar disorder, history of polysubstance abuse with last use of methamphetamine around 7 months ago, presenting with worsening irritability, anger, depressive symptoms, restlessness. Continues to report passive suicidal thoughts with no active intent or plan, denies any hallucinations. Reports being compliant with his medication. INVOLUNTARY ADMIT to inpatient psychiatry DISCONTINUE mirtazapine DISCONTINUE quetiapine START olanzapine 2.5 mg twice daily targeting mood START fluoxetine 10 mg daily targeting mood and anxiety Encourage patient to participate in unit activities to include group sessions, unit milieu Coordinate with delinquency prevention social worker for post discharge care Involuntary Hold Information 96 Hour Hold: 96 Hour Involuntary Admission: Yes 96 Hour Hold Ending Date: 07/30/20 96 Hour Hold Ending Time: 12:01 Attestations NPU Medical Necessity Statement*: Requires psychiatric hospitalization for medication stabilization, coordination for safe discharge Anticipate hospital stay to exceed 2 midnights Time Spent in Patient Care: Greater than 35 minutes (>than 50% of time spent in counselling and/or direct pt care on unit) . Coding Level of Care Code Acute Hair Salon Manager for [facility] Fwd Diagnoses Bipolar disorder, unspecified F31.62 Current bipolar episode type: mixed Active/Remission status: currently active Current episode severity: moderate Suicidal ideation R45.859
[2020-07-26] MEDS: OLANZapine 5 mg TABLET 2.5 MG PO ×2 (10:36→17:13)
[2020-07-26] MEDS: fluoxetine 10 mg Capsule PO (10:36)
[2020-07-26 13:57] VITALS: BP 145/100; PULSE 88; RESP 18; TEMP 36.5; O2SAT 96
[2020-07-26 19:56] VITALS: BP 119/87; PULSE 94; RESP 19; TEMP 36.4; O2SAT 95
[2020-07-27 06:00] VITALS: BP 126/90; PULSE 80; RESP 17; TEMP 36.9; O2SAT 96
[2020-07-27] MEDS: pantoprazole DR 40 mg Tablet PO (07:42)
[2020-07-27] MEDS: meloxicam 7.5 mg tablet 15 MG PO (07:42)
[2020-07-27] MEDS: lisinopril 10 mg Tablet 20 MG PO (07:42)
[2020-07-27] MEDS: OLANZapine 5 mg TABLET 2.5 MG PO (07:42)
[2020-07-27] MEDS: metoprolol tartrate 25 mg Tablet PO ×2 (07:43→21:19)
[2020-07-27] MEDS: metformin 500 mg Tablet PO ×2 (07:43→17:35)
[2020-07-27] MEDS: fluoxetine 10 mg Capsule PO (07:43)
--- NOTE | 2020-07-27 12:26 | PM.NPN ---
Subjective NPU Subjective: Interval history: Patient reports some improvement and states that he feels a little less pressured but continues to have some flight of ideas Denies any interval auditory or visual hallucinations, denies any delusions Reports occasional depressed symptoms, denies any interval suicidal ideation Reports being compliant with medication, denies any medication side effects Reports some difficulty with initiating and maintaining sleep but reports some improvement Reports that his appetite is been good Mental Status Exam MSE Comments: Sitting up on his bed, appropriately groomed and dressed, calm, cooperative, interactive, good eye contact Psychomotor activity is neither increased nor decreased, no agitation Speech is normal volume, normal rate, spontaneous, not pressured I feel a little better, congruent affect, not labile Alert and oriented to person, place, time, situation Memory and concentration appear to be fair to intact per interview Thought process, linear, no flight of ideas, no looseness of association Thought content, no delusions, no hallucinations, no suicidal ideation, no homicidal ideation Insight and judgment appear to be fair Vitals/I&O/Wt Last Vital Signs Temp 98.5 F 07/27/20 06:00 Pulse 80 07/27/20 06:00 Resp 17 07/27/20 06:00 BP 126/90 07/27/20 06:00 Pulse Ox 96 07/27/20 06:00 Data NPU : 07/25/20 09:14 07/25/20 09:14 A&P Assessment and plan (1) Suicidal ideation: Status: Acute (2) Bipolar disorder, unspecified: Status: Acute Qualifiers: Active/Remission status: currently active Current bipolar episode type: mixed Current episode severity: moderate Qualified Code(s): F31.62 - Bipolar disorder, current episode mixed, moderate Additional A&P Information Reports some improvement in mood but continues to report intermittent depressive symptoms, reports some improvement in feeling pressured thoughts, behavior INCREASE to olanzapine 2.5 mg daily, 5 mg at bedtime targeting mood Continue to monitor Involuntary Hold Information 96 Hour Hold: 96 Hour Involuntary Admission: Yes 96 Hour Hold Ending Date: 07/30/20 96 Hour Hold Ending Time: 12:01 Attestations NPU Medical Necessity Statement*: Continues to require psychiatric hospitalization for medication stabilization, coordination for safe discharge Coding Level of Care Code Acute [employer] [facility] Larry Diagnoses Suicidal ideation R45.851 Bipolar disorder, unspecified F31.62 Active/Remission status: currently active Current bipolar episode type: mixed Current episode severity: moderate
[2020-07-27 14:00] VITALS: BP 127/87; PULSE 91; RESP 18; TEMP 36.7; O2SAT 99
[2020-07-27] MEDS: OLANZapine 5 mg TABLET PO (21:19)
[2020-07-27 22:00] VITALS: BP 134/81; PULSE 85; RESP 18; TEMP 36.4; O2SAT 98
[2020-07-28 06:00] VITALS: BP 141/109; PULSE 76; RESP 19; TEMP 36.7; O2SAT 95
[2020-07-28] MEDS: metformin 500 mg Tablet PO ×2 (07:21→17:11)
[2020-07-28] MEDS: fluoxetine 10 mg Capsule PO (08:46)
[2020-07-28] MEDS: lisinopril 10 mg Tablet 20 MG PO (08:46)
[2020-07-28] MEDS: pantoprazole DR 40 mg Tablet PO (08:47)
[2020-07-28] MEDS: metoprolol tartrate 25 mg Tablet PO ×2 (08:47→19:35)
[2020-07-28] MEDS: OLANZapine 5 mg TABLET 2.5 MG PO (08:48)
[2020-07-28] MEDS: meloxicam 7.5 mg tablet 15 MG PO (08:48)
--- NOTE | 2020-07-28 10:56 | PM.NPN ---
Subjective NPU Subjective: Interval history: Reports improvement in mood, denies any interval depressive symptoms, denies any suicidal ideation Denies any interval auditory or visual hallucinations, denies any delusions Reports being compliant with medication, denies any medication side effects Reports improved sleep Per staff report, no interval behavioral disturbances Mental Status Exam MSE Comments: Calm, cooperative, appropriately groomed and dressed, good eye contact Psychomotor activity is neither increased nor decreased, no agitation Speech is normal volume, normal rate, spontaneous, not pressured I feel okay, congruent affect, not labile Alert and oriented to person, place, time, situation Memory and concentration appear to be fair to intact per interview Thought process, linear, no flight of ideas, no looseness of association Thought content, no delusions, no hallucinations, no suicidal ideation, no homicidal ideation Insight and judgment appear to be fair Vitals/I&O/Wt Last Vital Signs Temp 98.1 F 07/28/20 06:00 Pulse 76 07/28/20 06:00 Resp 19 H 07/28/20 06:00 BP 141/109 07/28/20 06:00 Pulse Ox 95 07/28/20 06:00 Data NPU : 07/25/20 09:14 07/25/20 09:14 A&P Assessment and plan (1) Suicidal ideation: Status: Acute (2) Bipolar disorder, unspecified: Status: Acute Qualifiers: Active/Remission status: currently active Current bipolar episode type: mixed Current episode severity: moderate Qualified Code(s): F31.62 - Bipolar disorder, current episode mixed, moderate Additional A&P Information Improving, denying any interval depressive symptoms, denies any restlessness Consolidate patient's dosage to olanzapine 5 mg at bedtime Involuntary Hold Information 96 Hour Hold: 96 Hour Involuntary Admission: Yes 96 Hour Hold Ending Date: 07/30/20 96 Hour Hold Ending Time: 12:01 Attestations NPU Medical Necessity Statement*: Require psychiatric hospitalization for medication stabilization, coordination for safe discharge Coding Level of Care Code Acute 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
[2020-07-28 14:00] VITALS: BP 152/83; PULSE 86; RESP 20; TEMP 36.8; O2SAT 96
--- NOTE | 2020-07-28 17:12 | PC.RESP ---
Smoking Cessation information sent to patient.
[2020-07-28] MEDS: OLANZapine 5 mg TABLET PO (19:36)
[2020-07-28 20:08] VITALS: BP 136/87; PULSE 87; RESP 17; TEMP 36.7; O2SAT 94
[2020-07-29] MEDS: trazodone 50 mg Tablet PO (01:42)
--- NOTE | 2020-07-29 01:43 | PC.NURSE ---
PT UP IN DAY ROOM, STATES HE CAN T SLEEP, TRAZODONE 50MG PO GIVEN FOR INSOMNIA.
--- NOTE | 2020-07-29 03:05 | PC.NURSE ---
PT RESTING QUIETLY WITH BOTH EYES CLOSED AT THIS TIME.
[2020-07-29 06:00] VITALS: BP 124/91; PULSE 89; RESP 15; TEMP 37.2; O2SAT 95
[2020-07-29] MEDS: metformin 500 mg Tablet PO (07:28)
[2020-07-29] MEDS: fluoxetine 10 mg Capsule PO (08:24)
[2020-07-29] MEDS: pantoprazole DR 40 mg Tablet PO (08:24)
[2020-07-29] MEDS: metoprolol tartrate 25 mg Tablet PO (08:24)
[2020-07-29] MEDS: lisinopril 10 mg Tablet 20 MG PO (08:24)
[2020-07-29] MEDS: meloxicam 7.5 mg tablet 15 MG PO (08:25)
--- NOTE | 2020-07-29 14:02 | P.DS_ITS ---
Diagnoses at Discharge Discharge Diagnosis (1) Suicidal ideation: Status: Acute (2) Bipolar disorder, unspecified: Status: Acute Qualifiers: Active/Remission status: currently active Current bipolar episode type: mixed Current episode severity: moderate Qualified Code(s): F31.62 - Bipolar disorder, current episode mixed, moderate Reason for Visit Reason for Visit: SI Brief History: History of Present Illness Vivek Corral is a 49 year old male with a history of bipolar disorder presented to the emergency department with complaint of worsening depression over the past several weeks with worsening suicidal ideation over the past week stating that he had the intent of cutting his wrist with a razor blade. Patient has multiple past suicide attempts starting in his late 30s with most recent attempt several years ago. Patient also reports that he has had thoughts about overdosing on pills. Patient states that he has been feeling restless, irritable and angry and reports having racing thoughts and lots of energy but does not know what to do with that. He denies any hallucinations and denies any delusions. He reports being compliant with his medication and outpatient medication management follow-up and states that his medication had been recently changed a few days ago stopping Paxil and starting a low-dose of Seroquel at bedtime but has noticed little effect. Patient reports having difficulty going to sleep secondary to his mood symptoms and has not been feeling rested. Patient has a history of past substance use with methamphetamine but states that he has not used for 7 to 9 months. He did report having a couple shots of liquor the other night because of his difficulty sleeping but has no intentions of continuing to drink or using this as a means to help with his current situation. Psychiatric review of systems is otherwise negative Hospital Course Hospital Course Vivek presented to the emergency department with a history of bipolar disorder with suicidal thinking off of his medication. He was admitted to the neuropsychiatric unit for definitive treatment of those issues. On the unit he slowly acclimated to the individual, group and milieu therapies provided. Prozac 10 mg every morning and Zyprexa 2.5 mg nightly were started and the Depakote was titrated to 5 mg. He showed modest improvement and was able to contract for safety prior to discharge. During the hospitalization, patient had routine laboratory studies which were within normal limits except for few outliers. Additionally there was a general medical evaluation which was also within normal limits and revealed no new acute processes. Discharge Summary: At the time of discharge, psychosis and lethality were denied. Mood and anxiety were well managed. Patient endorsed a plan to follow-up with the aftercare recommendations of the treatment team. Patient was evaluated and deemed to be absent credible lethality, and had achieved the maximum benefit from an inpatient hospitalization, so was discharged. Involuntary Hold Information 96 Hour Hold: 96 Hour Involuntary Admission: Yes 96 Hour Hold Ending Date: 07/30/20 96 Hour Hold Ending Time: 12:01 Mental Status Exam MSE Comments: There is an obese white male with hospital scrubs along with adequate grooming and eye contact. No abnormal movements except for mild psychomotor retardation. Cooperative with exam in no acute distress. Speech was slightly decreased rate normal volume. Mood described as better/doing fine, affect slightly subdued. Thought process organized, thought content: Patient denied suicidal or homicidal ideation, there were no delusions reported noted, he denied any auditory visual hallucinations. Attention and concentration appeared intact and memory was reliable but none were formally tested. He is alert and oriented x3. Insight and judgment appear fair and impulse control appears fair as well. Discharge Data Vitals: Last Vital Signs Temp 98.9 F 07/29/20 06:00 Pulse 89 07/29/20 06:00 Resp 15 07/29/20 06:00 BP 124/91 07/29/20 06:00 Pulse Ox 95 07/29/20 06:00 Discharge Plan Discharge Patient Disposition: Home Condition: Stable Prescriptions: New trazodone 50 mg Tablet 50 mg PO BEDTIME PRN (Reason: Sleep) 30 Days Qty: 30 RF: 1 olanzapine 5 mg Tablet 5 mg PO BEDTIME 30 Days Qty: 30 RF: 1 fluoxetine 10 mg Capsule 10 mg PO DAILY 30 Days Qty: 30 RF: 1 Continued lisinopril 10 mg tablet 20 mg PO DAILY RF: 0 sumatriptan succinate 50 mg tablet 50 mg PO Q2H PRN (Reason: Migraine Headache) RF: 0 Aimovig Autoinjector 70 mg/mL auto-injector 70 mg SUBCUT Q30D RF: 0 cholecalciferol (vitamin D3) [Vitamin D3] 125 mcg (5,000 unit) tablet 50,000 unit PO Q7D RF: 0 metformin 500 mg tablet 500 mg PO BID RF: 0 metoclopramide HCl [Reglan] 10 mg Tablet 10 mg PO Q6H PRN (Reason: HEADACHES/MIGRAINES) RF: 0 meloxicam 15 mg Tablet 15 mg PO DAILY RF: 0 pantoprazole 40 mg tablet,delayed release (DR/EC) 40 mg PO DAILY RF: 0 metoprolol tartrate 25 mg tablet 25 mg PO BID RF: 0 Discontinued Remeron 15 mg tablet 15 mg PO BEDTIME RF: 0 Seroquel 50 mg tablet 50 mg PO BEDTIME RF: 0 Discharge Orders: Discharge Order (Routine); Ordered 07/29/20 Ordered By: Kodak Allred Referrals: Nishant Reynoso NP [Primary Care Provider] - Discharge Diet: Regular Discharge Activity: Resume usual activity Patient Instructions: Opioid Safety Discharge Attestations NPU Time Spent in Discharge Care*: less than 30 min Specific Discharge Activities: Specific discharge activities: educating patient, discussing with watch caser/social workers/dc planners, documenting/other paperwork and evaluating patient/reviewing data Status at Discharge: Cognitive status at discharge: cognitively intact , Behavioral status at discharge: cooperative , Coding Level of Care Code Acute [facility] DC note Diagnoses Suicidal ideation R45.851 Bipolar disorder, unspecified F31.62 Active/Remission status: currently active Current bipolar episode type: mixed Current episode severity: moderate
[2020-07-29 14:23] VITALS: BP 124/91; PULSE 89; RESP 15; TEMP 37.2; O2SAT 95
== END 2020-07-29 14:56 | disposition home or self-care (01) | DRG 885 ==
LOC: ER 11:22 → NP 11:30
PROVIDERS: Nurse Practitioner Family; Admitting Provider Psychiatry & Neurology Psychiatry; Emergency Provider Family Medicine; PCP Nurse Practitioner Family; Visit Provider Psychiatry & Neurology Psychiatry
DX: F31.62 Bipolar disorder, current episode mixed, moderate (principal); R45.851 Suicidal ideations; Z91.5 Personal history of self-harm; E66.9 Obesity, unspecified; Z68.34 Body mass index [BMI] 34.0-34.9, adult; F17.210 Nicotine dependence, cigarettes, uncomplicated; F15.21 Other stimulant dependence, in remission
CPT/HCPCS: 80053; 80306; 80307; 81001; 84443; 85025; 93005

== ENCOUNTER → 2020-08-05 13:12 | Outpatient (BNVA) | payer MEDICAID, SELFPAY | PROVIDERS: PCP Nurse Practitioner Family; Visit Provider Orthopaedic Surgery | DX: M47.12 Other spondylosis with myelopathy, cervical region (principal) | CPT/HCPCS: 72040 ==

== ENCOUNTER → 2020-08-06 13:55 | Outpatient (BNVA) | payer MEDICAID, SELFPAY | PROVIDERS: PCP Nurse Practitioner Family; Visit Provider Anesthesiology Pain Medicine | DX: M47.816 Spondylosis without myelopathy or radiculopathy, lumbar region (principal); M54.16 Radiculopathy, lumbar region; M48.062 Spinal stenosis, lumbar region with neurogenic claudication; M54.12 Radiculopathy, cervical region; M47.812 Spondylosis without myelopathy or radiculopathy, cervical region; M50.90 Cervical disc disorder, unspecified, unspecified cervical region; M62.838 Other muscle spasm; F17.210 Nicotine dependence, cigarettes, uncomplicated | CPT/HCPCS: 99214 ==

== ENCOUNTER → 2020-08-27 14:00 | Outpatient (BNVA) | payer MEDICAID, SELFPAY | PROVIDERS: PCP Nurse Practitioner Family; Visit Provider Nurse Practitioner | DX: F41.1 Generalized anxiety disorder (principal); F31.32 Bipolar disorder, current episode depressed, moderate; F15.21 Other stimulant dependence, in remission | CPT/HCPCS: 87635; 99214 ==

== ENCOUNTER 2020-08-31 16:47 | Outpatient (CLI) | payer MEDICAID, SELFPAY ==
--- NOTE | 2020-08-31 17:30 | MR_ITS ---
WS: [id number] MRI LUMBAR SPINE NONCONTRAST HISTORY: M48.062 - Spinal stenosis, lumbar region with neurogenic ... COMPARISON: 06/15/2020 TECHNIQUE: Sagittal and axial multisequence imaging is submitted. Posterior alignment is normal. Very mild disc desiccation at L3-4 and L4-5. No fractures or marrow ed ethel. Conus terminates normally at L1-2 disc level. L1-L2: Normal. L2-L3: Normal. L3-L4: Very mild annular disc bulging. Small LEFT foraminal disc protrusion with annular fissure and osteophytes causing mild foraminal narrowing and encroachment upon L3. L4-L5: Mild annular disc bulging and ligamentum flavum and facet arthritis. No significant stenosis. L5-S1: Mild annular disc bulge. Small annular fissure in the RIGHT paracentral disc. Mild bilateral f oraminal narrowing, RIGHT greater than LEFT. Small amount of fluid in the facet joints. Moderate sized LEFT renal cyst measures 3.3 x 4.1 cm. MR/MR lumbar spine wo con* [id number] IMPRESSION: 1. No high-grade central or foraminal stenosis or large disc protrusions. Carmen lar appearance of the lumbar spine as compared to 06/15/2020. 2. LEFT foraminal disc protrusion with osteophyte and annular fissure at L3-4 with very mild contact upon the L3 nerve root. 3. Mild disc bulging at L5-S1 with RIGHT paracentral fissure. Minimal RIGHT fo raminal narrowing.
== END 2020-08-31 16:48 | disposition home or self-care (01) ==
LOC: RADSHAW 16:49
PROVIDERS: PCP Nurse Practitioner Family; Visit Provider Orthopaedic Surgery
DX: M48.062 Spinal stenosis, lumbar region with neurogenic claudication (principal); M51.26 Other intervertebral disc displacement, lumbar region; M25.78 Osteophyte, vertebrae; M51.27 Other intervertebral disc displacement, lumbosacral region
CPT/HCPCS: 72040; 72100; 72148

== ENCOUNTER 2020-09-01 10:08 | Day surgery (SDC) | payer MEDICAID, SELFPAY ==
[2020-08-30 11:03] VITALS: BMI 34.7
--- NOTE | 2020-08-30 11:18 | ANES.PREANE2 ---
Pre-Anesthetic Assessment Pre-Anesthetic Assessment: Height/Weight: Height 1.68 m Weight 97.522 kg Preop Diagnosis: lumbar stenosis Proposed Procedure: Operation Date: 09/01/20 10:05 Proposed Procedures p Lumbar Spine Decompression L4/5 decompression 87680 M48.062(Not Applicable) - Bud Mcghee DO Familial anesthetic complications: None Social: Social History: Alcohol (ocassional) and Tobacco Comment: no meth greater than 1 year Exam: Pre-Anes Outpt Exam: alert, oriented x 3, clear to auscultation bilaterally and regular rate & rhythm Airway: Cervical ROM: WNL MP: 4 Dentition: Chipped CV/HEM: CV/HEM: Arrythmia (holter reads sinus tachy) and HTN GI: GI: GERD Metabolic: Metabolic: DM (pre DM) Comments: b12 def Musc/skel: Comments: cervical spine disease Anesthetic Plan: ASA status: 3 Anesthesia: General Risk of > 500 ml blood loss (7ml/kg in children): No PFSH Anesthesia PFSH: Medical History Bilateral renal stones Bipolar disorder, current episode depressed, moderate Cannabis dependence, uncomplicated Cervical disc disorder with myelopathy of mid-cervical region Cervical radiculopathy Cervical spondylosis Cervical spondylosis with myelopathy Generalized anxiety disorder 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 Social History Smoking and tobacco status: current some day smoker cigarettes Years cigarettes smoked: 35 Quit status (tobacco): has tried quititng Number of times tried to quit tobacco: 4 Second hand smoke exposure: No Alcohol intake: current Alcohol intake frequency: few times a month Alcohol type: beer Household members: family Marital status: Current occupational status: unemployed and disabled History of recent travel: No Data Anesthesia Cardiac Studies: Holter Monitor 12/21/19
[2020-09-01] VITALS (10 sets, daily range): BP systolic 115–140; BP diastolic 77–103; PULSE 88–95; RESP 16–27; TEMP 35–36.6; O2SAT 93–98
--- NOTE | 2020-09-01 | SCC_ITS ---
Procedure Done: L4/5 laminectomy with bilateral partial facetectomy 14.1 seconds of fluoroscopic guidance, for a cumulative dose of 4.81 mGy, was provided to by the radiology department. C-arm images of the lumbar spine were saved for the patient's permanent record. [facility] HOSPITALShandra
--- NOTE | 2020-09-01 10:44 | P.ANESUD_ITS ---
Pre-Anesthetic Update Pre-Anesthetic Assessment: Date of Surgery/Procedure: 09/01/20 Preop Lorri gnosis: cervical stenosis Proposed Procedure: Operation Date: 09/01/20 14:25 Proposed Procedures p Lumbar Spine Decompression L4/5 decompression 94088 M48.062(Not Applicable) - Bud Mcghee, DO Any changes to Pre-Anesthetic Assessment?: No Exam: Pre-Anes Outpt Exam: alert, oriented x 3, clear to auscultation bilaterally and regular rate & rhythm Cardiac Studies: Holter Monitor 12/21/19
[2020-09-01 11:17] LABS: Glucose Point of Care 120 mg/dL (70-110)
[2020-09-01] MEDS: sodium chloride 0.9% 1,000 ML 30 ML IV (11:33)
--- NOTE | 2020-09-01 11:50 | W.PM.OPSUD ---
Surgery/Procedure H&P Update DATE OF PROCEDURE: September 01, 2020 DATE H&P PERFORMED: 08/12/20 H&P UPDATE INFORMATION: I have reviewed H&P completed within last 30 days, I have examined patient prior to procedure and No changes to prior documentation PREOP DIAGNOSIS: cervical stenosis PLANNED PROCEDURE: Operation Date: 09/01/20 14:25 Proposed Procedures p Lumbar Spine Decompression L4/5 decompression 74705 M48.062(Not Applicable) - Bud Mcghee DO
--- NOTE | 2020-09-01 13:41 | PM.OP ---
Operative Report Date of procedure: September 01, 2020 Pre-op Diagnosis: Lumbar Stenosis L4/5 Post-op diagnosis: same Procedure Done: L4/5 laminectomy with bilateral partial facetectomy Procedure: L4/5 laminectomy with bilateral partial facetectomy Patient is brought to the operative suite. After undergoing anesthesia they are placed in the supine position. All areas of impingement are well padded. Patient is then prepped and draped in the normal sterile fashion. A skin incision is made over the L4-5 level. This is confirmed under c-arm guidance. A series of dilators are passed and the tubular retractor is docked on the L4 lamina. A bovie is used to clear the soft tissue off the lamina and the L 4/5 facet joint. A high speed gurdeep is then used to perform the laminectomy and take down the medial aspect of the L 4/5 facet joint. A kerrison rongeure was then used to take down the remaining lamina and smooth the edged of the laminectomy up to the point where the ligamentum flavum attaches. Attention was then brought to the medial aspect of the facet joint. The remaining medial aspect of the superior and inferior aspect of the facet joint were taken down with the kerrison from the pedicle of L4 to L 5. The facet joint had significant hypertrophy. Attention was then brought to the Ligamentum Flavum. The ligament was taken down from the lamina of L4 to L5 and out medially to the remaining facet joint. The ligament was thick. The dura was then exposed. The dura was in good repair. The L4 nerve was then traced with a curette out the L4/5 foramen and found to be adequately decompressed. The L5 nerve was traced with a curette around the L5 pedicle. The lateral recess was opened with a kerrison helping to further decompress the L5 nerve. The tubular retractor was then tilted to the contralateral side. The bovie was used to take down the soft tissue on the spinous process. The high speed gurdeep was used to take down the spinous process and then the contralateral lamina of L4. The kerrison rongeur was used to take down the remaining lamina to the point where the ligamentum flavum attached and the ligamentum flavum was taken down from L4 to L5. The kerrison rongeur was then used to reach across and take down the medial aspect of the contralateral L4/5 facet joint.The currete was used to trace the contralateral L4 nerve out the L4/5 foramen to make sure it was decompressed adequatesly and the L5 was traced around the L5 pedicle. The lateral recess was opened further with the kerrison to ensure the L5 is adequately decompressed. Wound is then irrigated copiously with saline and surgiflo is used to stop any bleeding. The tubular retractor is removed and the wound is closed with vicryl and monocryl suture. Glue is then used to protect the wound. A sterile dressing is then placed. Patient was then placed in the supine position and transferred to the PACU in stable condition.
--- NOTE | 2020-09-01 13:46 | XR_ITS ---
WS: [id number] Exam: XR lumbar spine 2-3V* [id number] Date/Time of Exam: 09/01/2020 1:46 PM Reason For Exam: OR PICTURES A single limited C-arm AP image of the lower lumbar spine is submitted. A surgical port eccentrically superimposes the L4-5 disc level. No other significant finding on this limited image.
[2020-09-01] MEDS: fentaNYL 50 mcg/mL INJ 2mL IVP (14:01)
--- NOTE | 2020-09-01 14:30 | SUR.PHASEI ---
1424 pt awake alert talkative pt moves all ext to command, vss iv patent pt requests something to drink, handoff at bedside to OPS nurse
[2020-09-01] MEDS: HYDROcodone-acetaminophen 5-325 mg Tablet 1 TAB PO (14:45)
== END 2020-09-01 15:17 | disposition home or self-care (01) ==
PROVIDERS: PCP Nurse Practitioner Family; Visit Provider Orthopaedic Surgery
PROC: (CPT 63005; principal; 2020-09-01 14:05)
DX: M48.062 Spinal stenosis, lumbar region with neurogenic claudication (principal); Z79.84 Long term (current) use of oral hypoglycemic drugs; F17.210 Nicotine dependence, cigarettes, uncomplicated; E11.9 Type 2 diabetes mellitus without complications; F41.9 Anxiety disorder, unspecified; Z86.14 Personal history of Methicillin resistant Staphylococcus aureus infection
CPT/HCPCS: 63047; 36416; 72100; 76000; 82962; J0690; J1100; J2250; J2405; J2704; J2710; J3010; J3490; J7030

== ENCOUNTER → 2020-10-13 09:43 | Outpatient (BNVA) | payer MEDICAID, SELFPAY | PROVIDERS: PCP Nurse Practitioner Family; Visit Provider Nurse Practitioner | DX: F41.1 Generalized anxiety disorder (principal); F31.32 Bipolar disorder, current episode depressed, moderate; F15.21 Other stimulant dependence, in remission | CPT/HCPCS: 99214 ==

== ENCOUNTER → 2020-10-20 08:49 | Outpatient (BNVA) | payer MEDICAID, SELFPAY | PROVIDERS: PCP Nurse Practitioner Family; Visit Provider Anesthesiology Pain Medicine | DX: G89.29 Other chronic pain (principal); M48.062 Spinal stenosis, lumbar region with neurogenic claudication; M54.16 Radiculopathy, lumbar region; M47.816 Spondylosis without myelopathy or radiculopathy, lumbar region; M54.12 Radiculopathy, cervical region; M47.812 Spondylosis without myelopathy or radiculopathy, cervical region; M50.90 Cervical disc disorder, unspecified, unspecified cervical region; M62.838 Other muscle spasm; M25.551 Pain in right hip; Z79.891 Long term (current) use of opiate analgesic | CPT/HCPCS: 99214 ==

== ENCOUNTER → 2020-10-21 10:26 | Outpatient (BNVA) | payer MEDICAID, SELFPAY | PROVIDERS: PCP Nurse Practitioner Family; Referring Provider Nurse Practitioner Family; Visit Provider Specialist | DX: F31.31 Bipolar disorder, current episode depressed, mild (principal); F31.62 Bipolar disorder, current episode mixed, moderate; F15.21 Other stimulant dependence, in remission; G43.019 Migraine without aura, intractable, without status migrainosus; F98.8 Other specified behavioral and emotional disorders with onset usually occurring in childhood and adolescence; F31.9 Bipolar disorder, unspecified; Z87.891 Personal history of nicotine dependence | CPT/HCPCS: 90834; 99204 ==

== ENCOUNTER → 2020-10-27 12:31 | Outpatient (BNVA) | payer MEDICAID, SELFPAY | PROVIDERS: PCP Nurse Practitioner Family; Visit Provider Social Worker Clinical | DX: F31.32 Bipolar disorder, current episode depressed, moderate (principal) | CPT/HCPCS: 90834 ==

== ENCOUNTER 2020-11-01 09:49 | Outpatient (CLI) | payer MEDICAID, SELFPAY ==
--- NOTE | 2020-11-01 09:59 | CT_ITS ---
WS: [id number] Exam: CT abdomen w con* [id number] Date/Time of Exam: 11/01/2020 10:01 AM Reason For Exam: ABD PAIN, WEIGHT LOSS, NAUSEA AND VOMITING DLP: 892.[address] scans at [facility] use at least one of these dose optimization techniques: automat ed exposure control; mA and/or kV adjustment per patient size (includes targeted exams where dose is matched to clinical indication); or iterative reconstruction. Comparison 03/19/2020. Lower lung zones are clear. Several hepatic cysts are noted. The gallbladder is surgically absent. Th e spleen is not enlarged. The pancreas and stomach appear normal. There are bilateral renal cysts not ed. Bilateral nonobstructing renal stones are noted. No acute renal obstruction. The abdominal aorta is normal in caliber. The portal vein and IVC are patent. Normal adrenal glands. No lymphadenopathy o r free air. Small bowel loops are not dilated. Colonic diverticulosis. No sign of acute diverticuliti s. No sign of acute appendix. No destructive bone lesions are identified. No significant abdominal wa ll defect. CT/CT abdomen w con* [id number] IMPRESSION: 1. Bilateral nonobstructing renal stones. 2. Bilateral renal cysts. 3. Several scattered hepatic cysts are noted. 4. Colonic diverticulosis. No sign of acute diverticulitis.
[2020-11-01] MEDS: iohexol 300 mg/mL 50 mL Btl PO (10:02)
[2020-11-01] MEDS: iohexol 300 mg/mL 100 mL Btl IV (10:30)
== END 2020-11-01 09:50 | disposition home or self-care (01) ==
PROVIDERS: PCP Nurse Practitioner Family; Visit Provider Internal Medicine
DX: R10.9 Unspecified abdominal pain (principal); R63.4 Abnormal weight loss; R11.2 Nausea with vomiting, unspecified; N20.0 Calculus of kidney; Q61.02 Congenital multiple renal cysts; K76.89 Other specified diseases of liver; K57.90 Diverticulosis of intestine, part unspecified, without perforation or abscess without bleeding
CPT/HCPCS: 74160; Q9967

== ENCOUNTER → 2020-11-04 12:57 | Outpatient (BNVA) | payer MEDICAID, SELFPAY | PROVIDERS: PCP Nurse Practitioner Family; Visit Provider Specialist | DX: R41.82 Altered mental status, unspecified (principal); G43.019 Migraine without aura, intractable, without status migrainosus; F17.200 Nicotine dependence, unspecified, uncomplicated | CPT/HCPCS: 95816 ==

== ENCOUNTER → 2020-11-10 13:51 | Outpatient (BNVA) | payer MEDICAID, SELFPAY | PROVIDERS: PCP Nurse Practitioner Family; Visit Provider Social Worker Clinical | DX: F41.1 Generalized anxiety disorder (principal) | CPT/HCPCS: 90834 ==

== ENCOUNTER → 2020-11-16 08:04 | Outpatient (BNVA) | payer MEDICAID, SELFPAY | PROVIDERS: PCP Nurse Practitioner Family; Visit Provider Nurse Practitioner | DX: F41.1 Generalized anxiety disorder (principal); F31.32 Bipolar disorder, current episode depressed, moderate; F15.21 Other stimulant dependence, in remission; F12.20 Cannabis dependence, uncomplicated | CPT/HCPCS: 99214 ==

== ENCOUNTER → 2020-11-24 14:03 | Outpatient (BNVA) | payer MEDICAID, SELFPAY | PROVIDERS: PCP Nurse Practitioner Family; Visit Provider Social Worker Clinical | DX: F41.1 Generalized anxiety disorder (principal); F31.32 Bipolar disorder, current episode depressed, moderate | CPT/HCPCS: 90834 ==

== ENCOUNTER → 2020-12-02 08:39 | Outpatient (BNVA) | payer MEDICAID, SELFPAY | PROVIDERS: PCP Nurse Practitioner Family; Visit Provider Anesthesiology Pain Medicine | DX: G89.29 Other chronic pain (principal); M19.031 Primary osteoarthritis, right wrist; M54.12 Radiculopathy, cervical region; M47.812 Spondylosis without myelopathy or radiculopathy, cervical region; M50.90 Cervical disc disorder, unspecified, unspecified cervical region; M48.062 Spinal stenosis, lumbar region with neurogenic claudication; M54.16 Radiculopathy, lumbar region; M47.816 Spondylosis without myelopathy or radiculopathy, lumbar region; M62.838 Other muscle spasm; Z79.891 Long term (current) use of opiate analgesic | CPT/HCPCS: 99214 ==

== ENCOUNTER 2020-12-07 13:28 | Outpatient (CLI) | payer MEDICAID, SELFPAY ==
--- NOTE | 2020-12-07 14:30 | XRR_ITS ---
PROCEDURE INFORMATION: Exam: XR Abdomen Exam date and time: 12/07/2020 2:30 PM Age: 50 years old Clinical indication: Condition or disease; Kidney or ureter condition; Calculus (stone) in kidney; Prior surgery; Surgery type: Gb; Additional info: Bilateral renal stone TECHNIQUE: Imaging protocol: XR of the abdomen. Views: Frontal supine view of the abdomen. 1 View. COMPARISON: CT abdomen w con* [id number] 11/01/2020 10:26 AM FINDINGS: Gastrointestinal tract: Normal. No bowel dilation. Organs: Multiple right kidney stones seen measuring up to 4.2 mm. Multiple left kidney stones seen measuring up to 4.8 mm. Bones/joints: Unremarkable. XR/XR KUB [id number] IMPRESSION: 1. Multiple bilateral renal calculi. 2. Negative for ureteral calculi seen
== END 2020-12-07 13:29 | disposition home or self-care (01) ==
LOC: RAD 13:32
PROVIDERS: PCP Nurse Practitioner Family; Visit Provider Urology
DX: N20.0 Calculus of kidney (principal); F31.32 Bipolar disorder, current episode depressed, moderate; F41.1 Generalized anxiety disorder
CPT/HCPCS: 90834; 74018; 81003

== ENCOUNTER → 2020-12-15 09:13 | Outpatient (BNVA) | payer MEDICAID, SELFPAY | PROVIDERS: PCP Nurse Practitioner Family; Visit Provider Anesthesiology Pain Medicine | DX: M19.031 Primary osteoarthritis, right wrist (principal); M62.838 Other muscle spasm; M54.12 Radiculopathy, cervical region; M47.812 Spondylosis without myelopathy or radiculopathy, cervical region; M50.90 Cervical disc disorder, unspecified, unspecified cervical region; M48.062 Spinal stenosis, lumbar region with neurogenic claudication; M54.16 Radiculopathy, lumbar region; M47.816 Spondylosis without myelopathy or radiculopathy, lumbar region; F17.210 Nicotine dependence, cigarettes, uncomplicated; Z79.891 Long term (current) use of opiate analgesic | CPT/HCPCS: 20600; 99214; J1030; J3490 ==

== ENCOUNTER → 2021-01-10 08:03 | Outpatient (BNVA) | payer MEDICAID, SELFPAY | PROVIDERS: PCP Nurse Practitioner Family; Visit Provider Specialist | DX: G43.711 Chronic migraine without aura, intractable, with status migrainosus (principal); F17.200 Nicotine dependence, unspecified, uncomplicated | CPT/HCPCS: 99214 ==

== ENCOUNTER → 2021-01-28 11:35 | Outpatient (BNVA) | payer MEDICAID, SELFPAY | PROVIDERS: PCP Nurse Practitioner Family; Visit Provider Counselor Mental Health | DX: F31.32 Bipolar disorder, current episode depressed, moderate (principal); F41.1 Generalized anxiety disorder | CPT/HCPCS: 90832; 90834 ==

== ENCOUNTER → 2021-02-18 12:36 | Outpatient (BNVA) | payer MEDICAID, SELFPAY | PROVIDERS: PCP Nurse Practitioner Family; Visit Provider Counselor Mental Health | DX: F31.32 Bipolar disorder, current episode depressed, moderate (principal); F41.1 Generalized anxiety disorder | CPT/HCPCS: 90834 ==

== ENCOUNTER → 2021-03-11 07:47 | Outpatient (BNVA) | payer MEDICAID, SELFPAY | PROVIDERS: PCP Nurse Practitioner Family; Visit Provider Counselor Mental Health | DX: F31.32 Bipolar disorder, current episode depressed, moderate (principal); F41.1 Generalized anxiety disorder | CPT/HCPCS: 90834 ==

== ENCOUNTER → 2021-03-16 08:00 | Outpatient (BNVA) | payer MEDICAID, SELFPAY | PROVIDERS: PCP Nurse Practitioner Family; Visit Provider Specialist | DX: F31.32 Bipolar disorder, current episode depressed, moderate (principal); F41.1 Generalized anxiety disorder; F15.21 Other stimulant dependence, in remission; G43.711 Chronic migraine without aura, intractable, with status migrainosus; F31.62 Bipolar disorder, current episode mixed, moderate; F17.200 Nicotine dependence, unspecified, uncomplicated | CPT/HCPCS: 80306; 96116; 99214 ==

== ENCOUNTER → 2021-03-23 10:35 | Outpatient (BNVA) | payer MEDICAID, SELFPAY | PROVIDERS: PCP Nurse Practitioner Family; Visit Provider Anesthesiology Pain Medicine | DX: M48.062 Spinal stenosis, lumbar region with neurogenic claudication (principal); M54.12 Radiculopathy, cervical region; M47.812 Spondylosis without myelopathy or radiculopathy, cervical region; M50.90 Cervical disc disorder, unspecified, unspecified cervical region; M54.16 Radiculopathy, lumbar region; M47.816 Spondylosis without myelopathy or radiculopathy, lumbar region; M19.039 Primary osteoarthritis, unspecified wrist; M62.838 Other muscle spasm; Z79.891 Long term (current) use of opiate analgesic; Z87.891 Personal history of nicotine dependence | CPT/HCPCS: 99214 ==

== ENCOUNTER → 2021-04-11 10:45 | Outpatient (BNVA) | payer MEDICAID, SELFPAY | PROVIDERS: PCP Nurse Practitioner Family; Visit Provider Counselor Mental Health | DX: F31.32 Bipolar disorder, current episode depressed, moderate (principal); F41.1 Generalized anxiety disorder | CPT/HCPCS: 90834 ==

== ENCOUNTER → 2021-04-13 07:40 | Outpatient (BNVA) | payer MEDICAID, SELFPAY | PROVIDERS: PCP Nurse Practitioner Family; Visit Provider Nurse Practitioner | DX: F31.32 Bipolar disorder, current episode depressed, moderate (principal); F41.1 Generalized anxiety disorder; F15.21 Other stimulant dependence, in remission | CPT/HCPCS: 99214 ==

== ENCOUNTER → 2021-04-28 07:31 | Outpatient (BNVA) | payer MEDICAID, SELFPAY | PROVIDERS: PCP Nurse Practitioner Family; Visit Provider Counselor Mental Health | DX: F31.32 Bipolar disorder, current episode depressed, moderate (principal); F41.1 Generalized anxiety disorder | CPT/HCPCS: 90832 ==

== ENCOUNTER → 2021-05-11 11:20 | Outpatient (BNVA) | payer MEDICAID, SELFPAY | PROVIDERS: PCP Nurse Practitioner Family; Visit Provider Nurse Practitioner | DX: F31.62 Bipolar disorder, current episode mixed, moderate (principal); F41.1 Generalized anxiety disorder; F15.21 Other stimulant dependence, in remission | CPT/HCPCS: 99214 ==

== ENCOUNTER 2021-05-29 16:14 | Emergency (ER) | payer MEDICAID, SELFPAY ==
[2021-05-29 16:19] VITALS: BP 150/101; PULSE 120; RESP 20; TEMP 36.7; O2SAT 96; BMI 30.7
--- NOTE | 2021-05-29 16:20 | ECG_ITS ---
[facility] Test Date: 2021-05-29 Pat Name: Vivek Corral Department: Room: Gender: Male Electrolog Operator: : 1970 Requested By: Kamila Cardozo Order Number: [id number] Khanna MD: Pranay Alcocer M.D. Measurements Intervals [place] Rate: 114 P: 42 OR: 159 QRS: 5 QRSD: 93 T: 15 QT: 322 QTc: 444 Interpretive Statements SINUS TACHYCARDIA Compared to ECG 07/25/2020 09:52:56 Sinus rhythm no longer present Electronically Signed On 05-30-2021 12:13:25 MEDICAL ASSISTANT SUPERVISOR by Pranay Alcocer M.D. [email or web address]
--- NOTE | 2021-05-29 16:22 | W.ED.GENADLT ---
Documented by User: Kamila Cardozo PA-C 05/29/21 16:46 HPI - General Adult General: Chief complaint: Weakness Stated complaint: ALL OVER JOINT PAIN; GOUT Time Seen by Provider: 05/29/21 16:16 Source: patient Mode of arrival: EMS Limitations: no limitations History of Present Illness: 50-year-old male presents to the ER today via EMS for weakness and all over body pain x5 to 7 days. Patient reports he started with weakness about a week ago and then over the last 3 to 4 days patient has had nausea with dry heaves. He reports overall weakness and reports after the joint pain started he remembers very little for 2 days. Patient reports he was diagnosed with gout in March and was treated at that time and things improved. Patient reports this time the pain started in his left elbow and has moved between the elbow, hands, and bilateral knees. Patient reports swelling of those joints at times. Patient reports a significant medical history including hyperparathyroidism and partial parathyroid removal. 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 Patient has chronic pain. Patient reports he lives at home with his mother. Patient denies any recent illness including ear pain, congestion, runny nose, sore throat, cough. Patient denies any recent sick contacts. Patient has not had his COVID or flu shot. Onset (ago): week(s) (1 week) Associated symptoms: Reports decreased appetite, malaise, nausea, vomiting and weakness; Deny rash Review of Systems General: Reports: 10 or more systems reviewed and unremarkable except in HPI and below Const: Reports: malaise ENMT: Reports: nasal discharge Card: Reports: lightheadedness GI: Reports: nausea and vomiting; Denies: diarrhea or constipation : Denies: difficulty urinating or dysuria Musc: Reports: extremity pain, joint pain (Multiple joints, left elbow, right hand, bilateral knees.) and joint swelling Skin/Breast: Denies: rash Neuro: Reports: Slurred speech present PFS ED PFSH: Medical History Bilateral renal stones Bipolar disorder, current episode depressed, moderate Cannabis dependence, uncomplicated Cervical disc disorder with myelopathy of mid-cervical region Cervical radiculopathy Cervical spondylosis Cervical spondylosis with myelopathy 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 Social History Quit status (tobacco): has tried quititng Number of times tried to quit tobacco: 4 Second hand smoke exposure: No Alcohol intake: current Alcohol intake frequency: few times a month Alcohol type: beer Household members: family Marital status: Current occupational status: unemployed and disabled History of recent travel: No Physical Exam Const: GENERAL APPEARANCE: cooperative, disheveled, lethargic and ill appearing ORIENTATION/CONSCIOUSNESS: Yes lethargic HENMT: COMMON NORMALS: normocephalic, external ears normal, Normal external nose present, Normal nasal mucous membranes and turbinates present and oropharynx normal HEAD & SCALP: normocephalic NOSE: Normal external nose present and Normal nasal mucous membranes and turbinates present EXTERNAL EAR: Yes external ears normal Eye: COMMON NORMALS: conjunctivae normal CONJUNCTIVA: Yes conjunctivae normal Neck/C-Spine: COMMON NORMALS: full ROM and no lymphadenopathy Resp: COMMON NORMALS: normal respiratory effort, No retractions and clear to auscultation bilaterally EFFORT & INSPECTION: Yes able to speak in complete sentences AUSCULTATION: clear to auscultation bilaterally Cardio: COMMON NORMALS: regular rhythm RATE: tachycardic RHYTHM: regular rhythm GI: COMMON NORMALS: Normal to inspection, nondistended, normoactive bowel sounds present, Soft to palpation and non-tender PALPATION: Yes Soft to palpation : COMMON NORMALS: Yes no CVA tenderness BLADDER/KIDNEY EXAM: Yes no CVA tenderness Back/Pelvis: COMMON NORMALS: no CVA tenderness Extremity: NARRATIVE EXTREMITY EXAM: Patient has some mild swelling noted to multiple joints however nothing is erythematous or appears to be obvious gout. Neuro: SENSORIUM/ORIENTATION: Yes lethargic Psych: OTHER: Depressed affect Skin: COMMON NORMALS: no rashes or lesions noted GENERAL SKIN EXAM: no rashes or lesions noted Course ED course: Patient presents to the ER with weakness and complaints of possible gout. This been going on for a week. Patient is very lethargic and difficult to obtain history from. We will get labs, EKG, and start fluids and Zofran for nausea. Consultations: Consultation #1: Patient signed out to Driss Thorpe at shift change. Still waiting on labs and additional tests. Time: 16:46 Vital Signs: Vital signs: Vital Signs Temperature 98.4 F 05/29/21 18:44 Pulse Rate 99 05/29/21 18:44 Respiratory Rate 18 05/29/21 18:44 Blood Pressure 123/90 05/29/21 18:44 Pulse Oximetry 95 05/29/21 18:36 MDM - General Adult Lab Data : 05/29/21 16:25 05/29/21 16:56 Laboratory Results WBC 9.9 10^3/uL (4.0-10.0) 05/29/21 16:25 RBC 4.46 10^6/uL (4.1-5.3) 05/29/21 16:25 Hgb 13.0 g/dL (11.7-16.6) 05/29/21 16:25 Hct 40.6 % (42.0-52.0) L 05/29/21 16:25 MCV 91.0 fl (80-94) 05/29/21 16:25 MCH 29.1 pg (28.0-34.0) 05/29/21 16:25 MCHC 32.0 g/dL (30.0-36.0) 05/29/21 16:25 RDW 15.8 % (12.1-15.1) H 05/29/21 16:25 Plt Count 439 10^3/cmm (130-400) H 05/29/21 16:25 MPV 10.7 fL (7.4-10.4) H 05/29/21 16:25 Neut % (Auto) 56.4 % 05/29/21 16:25 Lymph % (Auto) 35.9 % 05/29/21 16:25 Lamb % (Auto) 6.6 % 05/29/21 16:25 Eos % (Auto) 0.6 % 05/29/21 16:25 Baso % (Auto) 0.2 % 05/29/21 16:25 Neut # (Auto) 5.59 10^3/uL (1.8-7.7) 05/29/21 16:25 Lymph # (Auto) 3.6 10^3/uL (0.8-4.8) 05/29/21 16:25 Lamb # (Auto) 0.7 10^3/uL (0.2-0.9) 05/29/21 16:25 Eos # (Auto) 0.1 10^3/uL (0.0-0.8) 05/29/21 16:25 Baso # (Auto) 0.0 10^3/uL (0.0-0.1) 05/29/21 16:25 Nucleated RBC % (auto) 0 % 05/29/21 16:25 Nucleated RBCs # 0.0 /100WBC 05/29/21 16:25 Sodium 138 mmol/L (136-145) 05/29/21 16:56 Potassium 3.8 mmol/L (3.5-5.1) 05/29/21 16:56 Chloride 103 mmol/L (98-107) 05/29/21 16:56 Carbon Dioxide 25 mmol/L (22-29) 05/29/21 16:56 Anion Gap 13.8 (5-19) 05/29/21 16:56 BUN 9 mg/dL (6-20) 05/29/21 16:56 Creatinine 1.0 mg/dL (0.7-1.2) 05/29/21 16:56 GFR Calculation 78.8 mL/min (90-130) L 05/29/21 16:56 Glucose 115 mg/dL (65-115) 05/29/21 16:56 Calculated Osmolality 286 mOsm/kg (285-295) 05/29/21 16:56 Lactic Acid 1.2 mmol/L (0.5-2.2) 05/29/21 16:56 Uric Acid 6.8 mg/dL (3.4-7.0) 05/29/21 16:56 Calcium 10.2 mg/dL (8.5-10.5) 05/29/21 16:56 Total Bilirubin 0.5 mg/dL (0.15-1.2) 05/29/21 16:56 AST 14 U/L (0-40) 05/29/21 16:56 ALT 18 U/L (0-41) 05/29/21 16:56 Alkaline Phosphatase 102 IU/L (40-130) 05/29/21 16:56 Total Protein 6.9 g/dL (6.6-8.7) 05/29/21 16:56 Albumin 3.7 g/dL (3.5-5.2) 05/29/21 16:56 Globulin 3.2 g/dL (1.3-4.6) 05/29/21 16:56 Lipase 34 U/L (13-60) 05/29/21 16:56 Urine Color Yellow (Yellow) 05/29/21 17:43 Urine Appearance Clear (CLEAR) 05/29/21 17:43 Urine pH 5 (5-7) 05/29/21 17:43 Ur Specific [employer] 1.015 (1.005-1.030) 05/29/21 17:43 Urine Protein Neg (Negative) 05/29/21 17:43 Urine Glucose (UA) Norm (Normal) 05/29/21 17:43 Urine Ketones Negative (Negative) 05/29/21 17:43 Urine Blood Trace (Negative) H 05/29/21 17:43 Urine Nitrate Negative (Negative) 05/29/21 17:43 Urine Bilirubin Neg (Negative) 05/29/21 17:43 Urine Urobilinogen Norm mg/dL (Negative) 05/29/21 17:43 Ur Leukocyte Esterase Negative (Negative) 05/29/21 17:43 Urine RBC 0-4 /hpf (0-2) H 05/29/21 17:43 Urine WBC 0-4 /hpf (0-5) H 05/29/21 17:43 Ur Squamous Epith Cells None /hpf (0-5) 05/29/21 17:43 Amorphous Sediment Not Reportable 05/29/21 17:43 Urine Bacteria Trace /hpf (NONE) 05/29/21 17:43 Urine Mucus 1+ /hpf 05/29/21 17:43 Influenza Type A Ag Negative (Negative) 05/29/21 17:10 Influenza Type B Ag Negative (Negative) 05/29/21 17:10 SARS-CoV-2 Ag (Rapid) Negative (Negative) 05/29/21 17:10 Critical Care Time Critical Care Time: Critical Care Time: No Discharge Plan Discharge Patient Disposition: Home Clinical Impression: Osteoarth NOS-unspec Qualifiers: Osteoarthritis location: unspecified site Osteoarthritis type: unspecified Qualified Code(s): M19.90 - Unspecified osteoarthritis, unspecified site Condition: Stable Prescriptions: New prednisone 20 mg tablet 20 mg PO BID 7 Days Qty: 14 0RF Continued hydrocodone-acetaminophen 5-325 mg tablet 1 tab PO Q6H PRN (Reason: Pain) Qty: 6 0RF meloxicam 15 mg tablet 15 mg PO DAILY PRN (Reason: pain (scale score 4-6)) Qty: 15 0RF Discontinued ketorolac 10 mg tablet 10 mg PO TID PRN (Reason: Pain) 0RF No Action sumatriptan succinate 50 mg tablet 50 mg PO Q2H PRN (Reason: Migraine Headache) 0RF Label Comments: pt does not take this medication Rx Instructions: do not exceed 4 doses per 24 hrs cholecalciferol (vitamin D3) [Vitamin D3] 125 mcg (5,000 unit) tablet 50,000 unit PO Q14D 0RF Rx Instructions: SUNDAYS metformin 500 mg tablet 500 mg PO BID 0RF Ajovy Autoinjector 225 mg/1.5 mL auto-injector SUBCUT .monthly 0RF ramipril 1.25 mg capsule 1.25 mg PO DAILY 0RF baclofen 10 mg tablet 10 mg PO TID 0RF buspirone 10 mg tablet 10 mg PO BID Qty: 60 1RF duloxetine [Cymbalta] 60 mg capsule,delayed release(DR/EC) 60 mg PO DAILY Qty: 30 1RF pantoprazole 40 mg tablet,delayed release (DR/EC) 40 mg PO DAILY 0RF metoprolol tartrate 25 mg tablet 25 mg PO BID 0RF Discharge Orders: Discharge ED (Routine); Ordered 05/29/21 Ordered By: Driss Thorpe Referrals: Nishant Reynoso NP [Primary Care Provider] - Discharge Diet: Usual diet Discharge Activity: Increase activity as tolerated Patient Instructions: Arthritis (ED), Opioid Safety Activity Restrictions/Additional Instructions: Activity as tolerated. Continue with meloxicam daily for arthritis pain and inflammation. Use acetaminophen to help control pain. Use prednisone daily for the next 7 days to decrease overall body inflammation. Continue with routine care as instructed. Use hydrocodone for severe pain. Follow-up with primary care in 2 to 3 days for recheck. Return to ER for new concerns. Sign Out Sign Out Data: Patient Sign Out occurred on 05/29/21 at 16:58. Patient's care was discussed, and care was transferred from to Driss Thorpe. Coding Level of Care Code ED Resident Program Specialist for [facility] History Detailed Exam Comprehensive Medical Decision Making Moderate Complexity Time Spent (min) 40 Documented by User: ALEXANDRE Lauren 05/29/21 19:04 HPI - General Adult General: Chief complaint: Weakness Stated complaint: ALL OVER JOINT PAIN; GOUT Time Seen by Provider: 05/29/21 16:16 [facility] ED PFSH: Medical History Bilateral renal stones Bipolar disorder, current episode depressed, moderate Cannabis dependence, uncomplicated Cervical disc disorder with myelopathy of mid-cervical region Cervical radiculopathy Cervical spondylosis Cervical spondylosis with myelopathy 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 Social History Quit status (tobacco): has tried quititng Number of times tried to quit tobacco: 4 Second hand smoke exposure: No Alcohol intake: current Alcohol intake frequency: few times a month Alcohol type: beer Household members: family Marital status: Current occupational status: unemployed and disabled History of recent travel: No Course Vital Signs: Vital signs: Vital Signs Temperature 98.4 F 05/29/21 18:44 Pulse Rate 99 05/29/21 18:44 Respiratory Rate 18 05/29/21 18:44 Blood Pressure 123/90 05/29/21 18:44 Pulse Oximetry 95 05/29/21 18:36 MDM - General Adult Medical Decision Making 50-year-old male patient comes in today with complaints of general body aches. Patient reports symptoms for about 1 week. Patient believes his gout is acting up. On exam patient is alert and responding appropriately to questions. Patient complains of pain in multiple joints. On exam there is no sign of significant redness or erythema to the joints. Lungs are clear to auscultation. Vital signs are normal except for some elevation in pulse at 120 and respirations at 20. Differential diagnosis includes sepsis, arthritic flare, depression, malingering. Review of the record notes that patient has multiple pain complaints with arthritis and degenerative disc disease and degenerative joint disease. Patient also is treated for vitamin deficiency, and bipolar disorder. Laboratory values were unremarkable. Lactate was normal. Patient was given 1 L of IV fluid with a dose of ketorolac and Zofran. Patient had improvement of symptoms. Feel the patient probably just has arthritic flare will give 1 dose of dexamethasone IV. Patient was written prescription for prednisone daily for the next 7 days, and then we will continue patient on meloxicam. Patient will also be given 6 tablets of hydrocodone for severe pain. Patient reported understanding of care plan need for follow-up or return to the ER. No sign of serious illness or injury was noted. Lab Data : 05/29/21 16:25 05/29/21 16:56 Laboratory Results WBC 9.9 10^3/uL (4.0-10.0) 05/29/21 16:25 RBC 4.46 10^6/uL (4.1-5.3) 05/29/21 16:25 Hgb 13.0 g/dL (11.7-16.6) 05/29/21 16:25 Hct 40.6 % (42.0-52.0) L 05/29/21 16:25 MCV 91.0 fl (80-94) 05/29/21 16:25 MCH 29.1 pg (28.0-34.0) 05/29/21 16:25 MCHC 32.0 g/dL (30.0-36.0) 05/29/21 16:25 RDW 15.8 % (12.1-15.1) H 05/29/21 16:25 Plt Count 439 10^3/cmm (130-400) H 05/29/21 16:25 MPV 10.7 fL (7.4-10.4) H 05/29/21 16:25 Neut % (Auto) 56.4 % 05/29/21 16:25 Lymph % (Auto) 35.9 % 05/29/21 16:25 Lamb % (Auto) 6.6 % 05/29/21 16:25 Eos % (Auto) 0.6 % 05/29/21 16:25 Baso % (Auto) 0.2 % 05/29/21 16:25 Neut # (Auto) 5.59 10^3/uL (1.8-7.7) 05/29/21 16:25 Lymph # (Auto) 3.6 10^3/uL (0.8-4.8) 05/29/21 16:25 Lamb # (Auto) 0.7 10^3/uL (0.2-0.9) 05/29/21 16:25 Eos # (Auto) 0.1 10^3/uL (0.0-0.8) 05/29/21 16:25 Baso # (Auto) 0.0 10^3/uL (0.0-0.1) 05/29/21 16:25 Nucleated RBC % (auto) 0 % 05/29/21 16:25 Nucleated RBCs # 0.0 /100WBC 05/29/21 16:25 Sodium 138 mmol/L (136-145) 05/29/21 16:56 Potassium 3.8 mmol/L (3.5-5.1) 05/29/21 16:56 Chloride 103 mmol/L (98-107) 05/29/21 16:56 Carbon Dioxide 25 mmol/L (22-29) 05/29/21 16:56 Anion Gap 13.8 (5-19) 05/29/21 16:56 BUN 9 mg/dL (6-20) 05/29/21 16:56 Creatinine 1.0 mg/dL (0.7-1.2) 05/29/21 16:56 GFR Calculation 78.8 mL/min (90-130) L 05/29/21 16:56 Glucose 115 mg/dL (65-115) 05/29/21 16:56 Calculated Osmolality 286 mOsm/kg (285-295) 05/29/21 16:56 Lactic Acid 1.2 mmol/L (0.5-2.2) 05/29/21 16:56 Uric Acid 6.8 mg/dL (3.4-7.0) 05/29/21 16:56 Calcium 10.2 mg/dL (8.5-10.5) 05/29/21 16:56 Total Bilirubin 0.5 mg/dL (0.15-1.2) 05/29/21 16:56 AST 14 U/L (0-40) 05/29/21 16:56 ALT 18 U/L (0-41) 05/29/21 16:56 Alkaline Phosphatase 102 IU/L (40-130) 05/29/21 16:56 Total Protein 6.9 g/dL (6.6-8.7) 05/29/21 16:56 Albumin 3.7 g/dL (3.5-5.2) 05/29/21 16:56 Globulin 3.2 g/dL (1.3-4.6) 05/29/21 16:56 Lipase 34 U/L (13-60) 05/29/21 16:56 Urine Color Yellow (Yellow) 05/29/21 17:43 Urine Appearance Clear (CLEAR) 05/29/21 17:43 Urine pH 5 (5-7) 05/29/21 17:43 Ur Specific [employer] 1.015 (1.005-1.030) 05/29/21 17:43 Urine Protein Neg (Negative) 05/29/21 17:43 Urine Glucose (UA) Norm (Normal) 05/29/21 17:43 Urine Ketones Negative (Negative) 05/29/21 17:43 Urine Blood Trace (Negative) H 05/29/21 17:43 Urine Nitrate Negative (Negative) 05/29/21 17:43 Urine Bilirubin Neg (Negative) 05/29/21 17:43 Urine Urobilinogen Norm mg/dL (Negative) 05/29/21 17:43 Ur Leukocyte Esterase Negative (Negative) 05/29/21 17:43 Urine RBC 0-4 /hpf (0-2) H 05/29/21 17:43 Urine WBC 0-4 /hpf (0-5) H 05/29/21 17:43 Ur Squamous Epith Cells None /hpf (0-5) 05/29/21 17:43 Amorphous Sediment Not Reportable 05/29/21 17:43 Urine Bacteria Trace /hpf (NONE) 05/29/21 17:43 Urine Mucus 1+ /hpf 05/29/21 17:43 Influenza Type A Ag Negative (Negative) 05/29/21 17:10 Influenza Type B Ag Negative (Negative) 05/29/21 17:10 SARS-CoV-2 Ag (Rapid) Negative (Negative) 05/29/21 17:10 Discharge Plan Discharge Patient Disposition: Home Clinical Impression: Osteoarth NOS-unspec Qualifiers: Osteoarthritis location: unspecified site Osteoarthritis type: unspecified Qualified Code(s): M19.90 - Unspecified osteoarthritis, unspecified site Condition: Stable Prescriptions: New prednisone 20 mg tablet 20 mg PO BID 7 Days Qty: 14 0RF Continued hydrocodone-acetaminophen 5-325 mg tablet 1 tab PO Q6H PRN (Reason: Pain) Qty: 6 0RF meloxicam 15 mg tablet 15 mg PO DAILY PRN (Reason: pain (scale score 4-6)) Qty: 15 0RF Discontinued ketorolac 10 mg tablet 10 mg PO TID PRN (Reason: Pain) 0RF No Action sumatriptan succinate 50 mg tablet 50 mg PO Q2H PRN (Reason: Migraine Headache) 0RF Label Comments: pt does not take this medication Rx Instructions: do not exceed 4 doses per 24 hrs cholecalciferol (vitamin D3) [Vitamin D3] 125 mcg (5,000 unit) tablet 50,000 unit PO Q14D 0RF Rx Instructions: SUNDAYS metformin 500 mg tablet 500 mg PO BID 0RF Ajovy Autoinjector 225 mg/1.5 mL auto-injector SUBCUT .monthly 0RF ramipril 1.25 mg capsule 1.25 mg PO DAILY 0RF baclofen 10 mg tablet 10 mg PO TID 0RF buspirone 10 mg tablet 10 mg PO BID Qty: 60 1RF duloxetine [Cymbalta] 60 mg capsule,delayed release(DR/EC) 60 mg PO DAILY Qty: 30 1RF pantoprazole 40 mg tablet,delayed release (DR/EC) 40 mg PO DAILY 0RF metoprolol tartrate 25 mg tablet 25 mg PO BID 0RF Discharge Orders: Discharge ED (Routine); Ordered 05/29/21 Ordered By: Driss Thorpe Referrals: Nishant Reynoso NP [Primary Care Provider] - Discharge Diet: Usual diet Discharge Activity: Increase activity as tolerated Patient Instructions: Arthritis (ED), Opioid Safety Activity Restrictions/Additional Instructions: Activity as tolerated. Continue with meloxicam daily for arthritis pain and inflammation. Use acetaminophen to help control pain. Use prednisone daily for the next 7 days to decrease overall body inflammation. Continue with routine care as instructed. Use hydrocodone for severe pain. Follow-up with primary care in 2 to 3 days for recheck. Return to ER for new concerns. Sign Out Sign Out Data: Patient Sign Out occurred on 05/29/21 at 16:58. Patient's care was discussed, and care was transferred from to Driss Thorpe. Coding Level of Care Code ED Resident Program Specialist for [facility] Ju[facility] History Detailed Exam Comprehensive Medical Decision Making Moderate Complexity Time Spent (min) 40
[2021-05-29 16:33] LABS: Basophils % 0.2 %; Eosinophils # 0.1 10^3/uL (0.0-0.8); Eosinophils % 0.6 %; Hematocrit 40.6 % (42.0-52.0); Lymphocytes # 3.6 10^3/uL (0.8-4.8); Lymphocytes % 35.9 %; Mean Corpuscular Hemoglobin 29.1 pg (28.0-34.0); Mean Platelet Volume 10.7 fL (7.4-10.4); Monocytes # 0.7 10^3/uL (0.2-0.9); Monocytes % 6.6 %; Neutrophils # 5.59 10^3/uL (1.8-7.7); Neutrophils % 56.4 %; Nucleated Red Blood Cells % 0 %; Platelet Count 439 10^3/cmm (130-400); Red Blood Count 4.46 10^6/uL (4.1-5.3); Red Cell Distribution Width 15.8 % (12.1-15.1); White Blood Count 9.9 10^3/uL (4.0-10.0)
[2021-05-29] MEDS: sodium chloride 0.9% 1,000 ML 999 ML IV (16:35)
[2021-05-29] MEDS: ketorolac 30 mg/mL INJ 15 MG IVP (16:35)
[2021-05-29] MEDS: ondansetron 2 mg/ML SDV 2 mL 4 MG IVP (16:36)
--- NOTE | 2021-05-29 17:00 | PC.NURSE ---
Labs drawn, bolus infusing. Unable to provide urine sample at this time.
[2021-05-29 17:20] VITALS: BP 171/113; PULSE 88; RESP 18; TEMP 37.1; O2SAT 94
[2021-05-29 17:42] LABS: Influenza A by IFA Negative (Negative); Influenza B by IFA Negative (Negative); SARS Covid-2 Antigen Negative (Negative)
[2021-05-29 17:44] LABS: Alanine Aminotransferase 18 U/L (0-41); Albumin Level 3.7 g/dL (3.5-5.2); Alkaline Phosphatase 102 IU/L (40-130); Anion Gap 13.8 (5-19); Aspartate Amino Transferase 14 U/L (0-40); Blood Urea Nitrogen 9 mg/dL (6-20); Calcium 10.2 mg/dL (8.5-10.5); Carbon Dioxide 25 mmol/L (22-29); Chloride 103 mmol/L (98-107); Globulin 3.2 g/dL (1.3-4.6); Glomerular Filtration Rate 78.8 mL/min (90-130); Glucose 115 mg/dL (65-115); Lipase 34 U/L (13-60); Osmolality Calculated 286 mOsm/kg (285-295); Potassium 3.8 mmol/L (3.5-5.1); Sodium 138 mmol/L (136-145); Total Bilirubin 0.5 mg/dL (0.15-1.2); Total Protein 6.9 g/dL (6.6-8.7); Uric Acid 6.8 mg/dL (3.4-7.0)
[2021-05-29 17:45] LABS: Lactic Sepsis W/Reflex 1.2 mmol/L (0.5-2.2)
[2021-05-29 18:00] VITALS: BP 134/103; PULSE 94; RESP 20; TEMP 36.9; O2SAT 95
[2021-05-29 18:10] LABS: Add Urine Microscopic? YES; Bilirubin Urine Neg (Negative); Blood Urine Trace (Negative); Glucose Urine UA Norm (Normal); Ketones Urine Negative (Negative); Leukocyte Esterase Urine Negative (Negative); Nitrate Urine Negative (Negative); Protein Urine Neg (Negative); Specific Gravity, Urine 1.015 (1.005-1.030); Urine Appearance Clear (CLEAR); Urine Color Yellow (Yellow); Urobilinogen Urine Norm (Negative); pH Urine 5 (5-7)
[2021-05-29 18:17] LABS: Add Urine Culture? No; Bacteria Urine TRACE /hpf; Mucus Urine 1+ /hpf; RBC Urine 0-4 /hpf (0-2); WBC Urine 0-4 /hpf (0-5)
[2021-05-29 18:34] VITALS: BP 123/90; RESP 18; TEMP 37.2; O2SAT 94
[2021-05-29 18:36] VITALS: BP 94/50; O2SAT 95
[2021-05-29] MEDS: dexamethasone 4 mg/mL INJ 8 MG IVP (18:42)
[2021-05-29 18:44] VITALS: BP 123/90; PULSE 99; RESP 18; TEMP 36.9
== END 2021-05-29 18:53 | disposition home or self-care (01) ==
PROVIDERS: Physician Assistant; Emergency Provider Nurse Practitioner Family; PCP Nurse Practitioner Family
DX: M19.90 Unspecified osteoarthritis, unspecified site (principal); Z79.84 Long term (current) use of oral hypoglycemic drugs
CPT/HCPCS: 80053; 81001; 83605; 83690; 84550; 85025; 87040; 87426; 87804; 93005; 96361; 96374; 96375; 99284; J1100; J1885; J2405; J7030

== ENCOUNTER → 2021-06-06 07:40 | Outpatient (BNVA) | payer MEDICAID, SELFPAY | PROVIDERS: PCP Nurse Practitioner Family; Visit Provider Counselor Mental Health | DX: F31.32 Bipolar disorder, current episode depressed, moderate (principal); F41.1 Generalized anxiety disorder | CPT/HCPCS: 90834 ==

== ENCOUNTER → 2021-06-13 07:39 | Outpatient (BNVA) | payer MEDICAID, SELFPAY | PROVIDERS: PCP Nurse Practitioner Family; Visit Provider Nurse Practitioner | DX: F31.62 Bipolar disorder, current episode mixed, moderate (principal); F41.1 Generalized anxiety disorder; F15.21 Other stimulant dependence, in remission | CPT/HCPCS: 99214 ==

== ENCOUNTER → 2021-06-20 08:31 | Outpatient (BNVA) | payer MEDICAID, SELFPAY | PROVIDERS: PCP Nurse Practitioner Family; Visit Provider Counselor Mental Health | DX: F31.32 Bipolar disorder, current episode depressed, moderate (principal); F41.1 Generalized anxiety disorder | CPT/HCPCS: 90834; 90832 ==

== ENCOUNTER → 2021-07-04 08:28 | Outpatient (BNVA) | payer MEDICAID, SELFPAY | PROVIDERS: PCP Nurse Practitioner Family; Visit Provider Counselor Mental Health | DX: F31.32 Bipolar disorder, current episode depressed, moderate (principal); F41.1 Generalized anxiety disorder | CPT/HCPCS: 90834 ==

== ENCOUNTER 2021-07-17 05:27 | Inpatient (IN) | payer MEDICAID, SELFPAY ==
[2021-07-17] VITALS (9 sets, daily range): BP systolic 110–155; BP diastolic 67–107; PULSE 85–136; RESP 17–24; TEMP 36.3–37; O2SAT 95–98
--- NOTE | 2021-07-17 05:36 | ED_ITS ---
Documented by User: Nancy Sandoval MD 07/17/21 05:42 HPI - General Adult General: Chief complaint: General Medical Stated complaint: UNCONTROLLABLE BODY MOVEMENT Time Seen by Provider: 07/17/21 05:28 Source: patient and EMS Mode of arrival: EMS Limitations: no limitations History of Present Illness: 50-year-old male has a history of previous methamphetamine abuse he states he no longer uses and its been quite some time. He states he also has a psych history is on psychiatric meds. States over the last 2 days he has had uncontrolled movement to his whole body and he states that he just cannot get it under control and is getting worse. He here does have what appears to be a possible extraparametal syndrome moving his legs arms. Denies any pain denies any fever denies any other complaints Associated symptoms: Deny chest pain, dyspnea, headache(s), nausea, rash or vomiting Review of Systems Const: Denies: fever(s), chills, body aches or change in appetite Eyes: Denies: blurry vision or eye discomfort ENMT: Denies: throat pain or dental pain Card: Denies: chest pain Resp: Denies: dyspnea GI: Denies: abdominal pain, nausea, vomiting or diarrhea : Denies: dysuria Musc: Denies: neck pain or back pain Skin/Breast: Denies: rash Neuro: Denies: headache(s) Psych: Denies: depression Gomez/Lymph: Denies: easy bruising All/Imm: Denies: urticaria PFSH ED PFSH: Medical History Bilateral renal stones Bipolar disorder, current episode depressed, moderate Cannabis dependence, uncomplicated Cervical disc disorder with myelopathy of mid-cervical region Cervical radiculopathy Cervical spondylosis Cervical spondylosis with myelopathy Generalized anxiety disorder FDC (current) use of opiate analgesic Long-term use of high-risk medication Neck pain of over 3 months duration Opioid contract exists Other stimulant dependence, in remission Other stimulant dependence, in remission Other stimulant dependence, uncomplicated Pain management contract signed Psychiatric care Surgical History History of cholecystectomy History of knee surgery had MRSA Family History Brother Hypertension Grandfather Hypertension Father No problems noted. Social History Quit status (tobacco): has tried quititng Number of times tried to quit tobacco: 4 Second hand smoke exposure: No Alcohol intake: current Alcohol intake frequency: few times a month Alcohol type: beer Household members: family Marital status: Current occupational status: unemployed and disabled History of recent travel: No Physical Exam Const: COMMON NORMALS: patient oriented x3 HENMT: COMMON NORMALS: normocephalic and atraumatic HEAD & SCALP: normocephalic and atraumatic Eye: COMMON NORMALS: Equal, round and reactive pupils present and EOMs intact bilaterally PUPIL: Yes Equal, round and reactive pupils present Neck/C-Spine: COMMON NORMALS: full ROM and supple Chest: COMMONS NORMALS: normal inspection of the chest and normal palpation of entire chest wall Resp: COMMON NORMALS: normal respiratory effort, No retractions, No use of accessory muscles and clear to auscultation bilaterally AUSCULTATION: clear to auscultation bilaterally Cardio: COMMON NORMALS: regular rate, regular rhythm and No murmurs present (Cardio) RATE: regular rate RHYTHM: regular rhythm GI: COMMON NORMALS: Normal to inspection, nondistended, normoactive bowel sounds present, Soft to palpation, non-tender and no masses PALPATION: Yes Soft to palpation Extremity: NARRATIVE EXTREMITY EXAM: uncontrolled movement to all extremities Neuro: COMMON NORMALS: patient oriented x3, moves all extremities and no focal motor deficits Psych: COMMON NORMALS: mental status grossly normal, Normal thought process present and cooperative THOUGHT PROCESS: Normal thought process present Skin: COMMON NORMALS: no rashes or lesions noted and no wounds GENERAL SKIN EXAM: no rashes or lesions noted Course Vital Signs: Vital signs: Vital Signs Temperature 98.6 F 07/17/21 07:49 Pulse Rate 97 07/17/21 07:49 Respiratory Rate 20 H 07/17/21 07:49 Blood Pressure 112/89 07/17/21 07:49 Pulse Oximetry 96 07/17/21 07:49 MDM - General Adult Medical Decision Making Patient presents here with uncontrolled body movements. This could be due to meth abuse but he does deny drug use we will get a drug screen. I also believe he may have extraparametal syndrome we will give him Ativan along with Cogentin. We will check blood work patient's care is turned over to Dr. Alaniz at this time for further disposition Lab Data : 07/17/21 05:45 07/17/21 05:[address] 07/17/21 09:00 IMPRESSION: No acute intracranial abnormality. Laboratory Results WBC 14.7 10^3/uL (4.0-10.0) H 07/17/21 05:45 RBC 3.85 10^6/uL (4.1-5.3) L 07/17/21 05:45 Hgb 11.2 g/dL (11.7-16.6) L 07/17/21 05:45 Hct 34.5 % (42.0-52.0) L 07/17/21 05:45 MCV 89.6 fl (80-94) 07/17/21 05:45 MCH 29.1 pg (28.0-34.0) 07/17/21 05:45 MCHC 32.5 g/dL (30.0-36.0) 07/17/21 05:45 RDW 15.6 % (12.1-15.1) H 07/17/21 05:45 Plt Count 432 10^3/cmm (130-400) H 07/17/21 05:45 MPV 10.5 fL (7.4-10.4) H 07/17/21 05:45 Neut % (Auto) 70.1 % 07/17/21 05:45 Lymph % (Auto) 23.0 % 07/17/21 05:45 [place] % (Auto) 6.5 % 07/17/21 05:45 Eos % (Auto) 0.0 % 07/17/21 05:45 Baso % (Auto) 0.1 % 07/17/21 05:45 Neut # (Auto) 10.28 10^3/uL (1.8-7.7) H 07/17/21 05:45 Lymph # (Auto) 3.4 10^3/uL (0.8-4.8) 07/17/21 05:45 [place] # (Auto) 1.0 10^3/uL (0.2-0.9) H 07/17/21 05:45 Eos # (Auto) 0.0 10^3/uL (0.0-0.8) 07/17/21 05:45 Baso # (Auto) 0.0 10^3/uL (0.0-0.1) 07/17/21 05:45 Nucleated RBC % (auto) 0 % 07/17/21 05:45 Nucleated RBCs # 0.0 /100WBC 07/17/21 05:45 Sodium 140 mmol/L (136-145) 07/17/21 05:45 Potassium 3.5 mmol/L (3.5-5.1) 07/17/21 05:45 Chloride 102 mmol/L (98-107) 07/17/21 05:45 Carbon Dioxide 17 mmol/L (22-29) L 07/17/21 05:45 Anion Gap 24.5 (5-19) H 07/17/21 05:45 BUN 18 mg/dL (6-20) 07/17/21 05:45 Creatinine 1.5 mg/dL (0.7-1.2) H 07/17/21 05:45 GFR Calculation 49.3 mL/min (90-130) L 07/17/21 05:45 Glucose 134 mg/dL (65-115) H 07/17/21 05:45 Calculated Osmolality 294 mOsm/kg (285-295) 07/17/21 05:45 Calcium 10.5 mg/dL (8.5-10.5) 07/17/21 05:45 Total Bilirubin 0.5 mg/dL (0.15-1.2) 07/17/21 05:45 AST 61 U/L (0-40) H 07/17/21 05:45 ALT 45 U/L (0-41) H 07/17/21 05:45 Alkaline Phosphatase 177 IU/L (40-130) H 07/17/21 05:45 Total Protein 7.1 g/dL (6.6-8.7) 07/17/21 05:45 Albumin 3.6 g/dL (3.5-5.2) 07/17/21 05:45 Globulin 3.5 g/dL (1.3-4.6) 07/17/21 05:45 Urine Color Yellow (Yellow) 07/17/21 07:34 Urine Appearance Clear (CLEAR) 07/17/21 07:34 Urine pH 5 (5-7) 07/17/21 07:34 Ur Specific [place] 1.020 (1.005-1.030) 07/17/21 07:34 Urine Protein Trace (Negative) 07/17/21 07:34 Urine Glucose (UA) Norm (Normal) 07/17/21 07:34 Urine Ketones Negative (Negative) 07/17/21 07:34 Urine Blood 2+ (Negative) H 07/17/21 07:34 Urine Nitrate Negative (Negative) 07/17/21 07:34 Urine Bilirubin Neg (Negative) 07/17/21 07:34 Urine Urobilinogen 1 mg/dL (Negative) H 07/17/21 07:34 Ur Leukocyte Esterase Negative (Negative) 07/17/21 07:34 Urine RBC 0-4 /hpf (0-2) H 07/17/21 07:34 Urine WBC 5-10 /hpf (0-5) H 07/17/21 07:34 Ur Squamous Epith Cells Rare /hpf (0-5) 07/17/21 07:34 Amorphous Sediment Not Reportable 07/17/21 07:34 Urine Bacteria 1+ /hpf (NONE) H 07/17/21 07:34 Hyaline Casts 5-10 /lpf H 07/17/21 07:34 Urine Mucus 1+ /hpf 07/17/21 07:34 Urine Opiates Screen Negative ng/mL (Negative) 07/17/21 07:34 Ur Barbiturates Screen Negative ng/mL (Negative) 07/17/21 07:34 Ur Phencyclidine Scrn Negative ng/mL (Negative) 07/17/21 07:34 Ur Amphetamines Screen Positive ng/mL (Negative) H 07/17/21 07:34 U Benzodiazepines Scrn Negative ng/mL (Negative) 07/17/21 07:34 Urine Cocaine Screen Negative ng/mL (Negative) 07/17/21 07:34 U Marijuana (THC) Screen Negative ng/mL (Negative) 07/17/21 07:34 Discharge Plan Discharge Condition: Stable Prescriptions: No Action sumatriptan succinate 50 mg tablet 50 mg PO Q2H PRN (Reason: Migraine Headache) 0RF Label Comments: pt does not take this medication Rx Instructions: do not exceed 4 doses per 24 hrs cholecalciferol (vitamin D3) [Vitamin D3] 125 mcg (5,000 unit) tablet 50,000 unit PO Q14D 0RF Rx Instructions: SUNDAYS metformin 500 mg tablet 500 mg PO BID 0RF Ajovy Autoinjector 225 mg/1.5 mL auto-injector SUBCUT .monthly 0RF ramipril 1.25 mg capsule 1.25 mg PO DAILY 0RF baclofen 10 mg tablet 10 mg PO TID 0RF buspirone 10 mg tablet 10 mg PO BID Qty: 60 1RF duloxetine [Cymbalta] 60 mg capsule,delayed release(DR/EC) 60 mg PO DAILY Qty: 30 1RF hydrocodone-acetaminophen 5-325 mg tablet 1 tab PO Q6H PRN (Reason: Pain) Qty: 6 0RF meloxicam 15 mg tablet 15 mg PO DAILY PRN (Reason: pain (scale score 4-6)) Qty: 15 0RF pantoprazole 40 mg tablet,delayed release (DR/EC) 40 mg PO DAILY 0RF metoprolol tartrate 25 mg tablet 25 mg PO BID 0RF Referrals: Nishant Reynoso, [facility] ATTENDANT [Primary Care Provider] - Sign Out Sign Out Data: Patient Sign Out occurred on 07/17/21 at 05:59. Patient's care was discussed, and care was transferred from to Vivek Alaniz MD. 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 Social History Quit status (tobacco): has tried quititng Number of times tried to quit tobacco: 4 Second hand smoke exposure: No Alcohol intake: current Alcohol intake frequency: few times a month Alcohol type: beer Household members: family Marital status: Current occupational status: unemployed and disabled History of recent travel: No Course Vital Signs: Vital signs: Vital Signs Temperature 98.6 F 07/17/21 07:49 Pulse Rate 97 07/17/21 07:49 Respiratory Rate 20 H 07/17/21 07:49 Blood Pressure 112/89 07/17/21 07:49 Pulse Oximetry 96 07/17/21 07:49 MDM - General Adult Medical Decision Making Patient presents here with uncontrolled body movements. This could be due to meth abuse but he does deny drug use we will get a drug screen. I also believe he may have extraparametal syndrome we will give him Ativan along with Cogentin. We will check blood work patient's care is turned over to Dr. Alaniz at this time for further disposition Addendum: This patient was signed out to me by Dr. Sandoval. He presents with abnormal movements. UDS is positive for amphetamines. CT scan of the head does not reveal any intracranial hemorrhage or other acute abnormality. Does have white count elevation of 14 but denies any headache does not have meningismus and does not have any other focal infectious symptoms. Likely secondary to meth use. Also has ZOEY with creatinine at 1.5. IV fluids provided but he is able to tolerate p.o. intake. Patient also endorses suicidal ideation. Does not have a concrete plan. Discussed with psychiatry and they will admit for further evaluation. Further evaluation management per psychiatry team. Patient admitted in stable condition. Lab Data : 07/17/21 05:45 07/17/21 05:[address] 07/17/21 09:00 IMPRESSION: No acute intracranial abnormality. Laboratory Results WBC 14.7 10^3/uL (4.0-10.0) H 07/17/21 05:45 RBC 3.85 10^6/uL (4.1-5.3) L 07/17/21 05:45 Hgb 11.2 g/dL (11.7-16.6) L 07/17/21 05:45 Hct 34.5 % (42.0-52.0) L 07/17/21 05:45 MCV 89.6 fl (80-94) 07/17/21 05:45 MCH 29.1 pg (28.0-34.0) 07/17/21 05:45 MCHC 32.5 g/dL (30.0-36.0) 07/17/21 05:45 RDW 15.6 % (12.1-15.1) H 07/17/21 05:45 Plt Count 432 10^3/cmm (130-400) H 07/17/21 05:45 MPV 10.5 fL (7.4-10.4) H 07/17/21 05:45 Neut % (Auto) 70.1 % 07/17/21 05:45 Lymph % (Auto) 23.0 % 07/17/21 05:45 [place] % (Auto) 6.5 % 07/17/21 05:45 Eos % (Auto) 0.0 % 07/17/21 05:45 Baso % (Auto) 0.1 % 07/17/21 05:45 Neut # (Auto) 10.28 10^3/uL (1.8-7.7) H 07/17/21 05:45 Lymph # (Auto) 3.4 10^3/uL (0.8-4.8) 07/17/21 05:45 [place] # (Auto) 1.0 10^3/uL (0.2-0.9) H 07/17/21 05:45 Eos # (Auto) 0.0 10^3/uL (0.0-0.8) 07/17/21 05:45 Baso # (Auto) 0.0 10^3/uL (0.0-0.1) 07/17/21 05:45 Nucleated RBC % (auto) 0 % 07/17/21 05:45 Nucleated RBCs # 0.0 /100WBC 07/17/21 05:45 Sodium 140 mmol/L (136-145) 07/17/21 05:45 Potassium 3.5 mmol/L (3.5-5.1) 07/17/21 05:45 Chloride 102 mmol/L (98-107) 07/17/21 05:45 Carbon Dioxide 17 mmol/L (22-29) L 07/17/21 05:45 Anion Gap 24.5 (5-19) H 07/17/21 05:45 BUN 18 mg/dL (6-20) 07/17/21 05:45 Creatinine 1.5 mg/dL (0.7-1.2) H 07/17/21 05:45 GFR Calculation 49.3 mL/min (90-130) L 07/17/21 05:45 Glucose 134 mg/dL (65-115) H 07/17/21 05:45 Calculated Osmolality 294 mOsm/kg (285-295) 07/17/21 05:45 Calcium 10.5 mg/dL (8.5-10.5) 07/17/21 05:45 Total Bilirubin 0.5 mg/dL (0.15-1.2) 07/17/21 05:45 AST 61 U/L (0-40) H 07/17/21 05:45 ALT 45 U/L (0-41) H 07/17/21 05:45 Alkaline Phosphatase 177 IU/L (40-130) H 07/17/21 05:45 Total Protein 7.1 g/dL (6.6-8.7) 07/17/21 05:45 Albumin 3.6 g/dL (3.5-5.2) 07/17/21 05:45 Globulin 3.5 g/dL (1.3-4.6) 07/17/21 05:45 Urine Color Yellow (Yellow) 07/17/21 07:34 Urine Appearance Clear (CLEAR) 07/17/21 07:34 Urine pH 5 (5-7) 07/17/21 07:34 Ur Specific [place] 1.020 (1.005-1.030) 07/17/21 07:34 Urine Protein Trace (Negative) 07/17/21 07:34 Urine Glucose (UA) Norm (Normal) 07/17/21 07:34 Urine Ketones Negative (Negative) 07/17/21 07:34 Urine Blood 2+ (Negative) H 07/17/21 07:34 Urine Nitrate Negative (Negative) 07/17/21 07:34 Urine Bilirubin Neg (Negative) 07/17/21 07:34 Urine Urobilinogen 1 mg/dL (Negative) H 07/17/21 07:34 Ur Leukocyte Esterase Negative (Negative) 07/17/21 07:34 Urine RBC 0-4 /hpf (0-2) H 07/17/21 07:34 Urine WBC 5-10 /hpf (0-5) H 07/17/21 07:34 Ur Squamous Epith Cells Rare /hpf (0-5) 07/17/21 07:34 Amorphous Sediment Not Reportable 07/17/21 07:34 Urine Bacteria 1+ /hpf (NONE) H 07/17/21 07:34 Hyaline Casts 5-10 /lpf H 07/17/21 07:34 Urine Mucus 1+ /hpf 07/17/21 07:34 Urine Opiates Screen Negative ng/mL (Negative) 07/17/21 07:34 Ur Barbiturates Screen Negative ng/mL (Negative) 07/17/21 07:34 Ur Phencyclidine Scrn Negative ng/mL (Negative) 07/17/21 07:34 Ur Amphetamines Screen Positive ng/mL (Negative) H 07/17/21 07:34 U Benzodiazepines Scrn Negative ng/mL (Negative) 07/17/21 07:34 Urine Cocaine Screen Negative ng/mL (Negative) 07/17/21 07:34 U Marijuana (THC) Screen Negative ng/mL (Negative) 07/17/21 07:34 Discharge Plan Discharge Condition: Stable Prescriptions: No Action sumatriptan succinate 50 mg tablet 50 mg PO Q2H PRN (Reason: Migraine Headache) 0RF Label Comments: pt does not take this medication Rx Instructions: do not exceed 4 doses per 24 hrs cholecalciferol (vitamin D3) [Vitamin D3] 125 mcg (5,000 unit) tablet 50,000 unit PO Q14D 0RF Rx Instructions: SUNDAYS metformin 500 mg tablet 500 mg PO BID 0RF Ajovy Autoinjector 225 mg/1.5 mL auto-injector SUBCUT .monthly 0RF ramipril 1.25 mg capsule 1.25 mg PO DAILY 0RF baclofen 10 mg tablet 10 mg PO TID 0RF buspirone 10 mg tablet 10 mg PO BID Qty: 60 1RF duloxetine [Cymbalta] 60 mg capsule,delayed release(DR/EC) 60 mg PO DAILY Qty: 30 1RF hydrocodone-acetaminophen 5-325 mg tablet 1 tab PO Q6H PRN (Reason: Pain) Qty: 6 0RF meloxicam 15 mg tablet 15 mg PO DAILY PRN (Reason: pain (scale score 4-6)) Qty: 15 0RF pantoprazole 40 mg tablet,delayed release (DR/EC) 40 mg PO DAILY 0RF metoprolol tartrate 25 mg tablet 25 mg PO BID 0RF Referrals: Nishant Reynoso NP [Primary Care Provider] - Sign Out Sign Out Data: Patient Sign Out occurred on 07/17/21 at 05:59. Patient's care was discussed, and care was transferred from to Vivek Alaniz MD. Coding Level of Care Code ED Medical Claims Processor for Caty Fwd Exam Comprehensive
[2021-07-17] MEDS: benztropine 1 mg/mL SDV 2 mL 2 MG IM (05:45)
[2021-07-17] MEDS: LORazepam 2 mg/mL INJ 1 mL 1 MG IVP (05:45)
[2021-07-17 05:53] LABS: Basophils % 0.1 %; Hematocrit 34.5 % (42.0-52.0); Hemoglobin 11.2 g/dL (11.7-16.6); Lymphocytes # 3.4 10^3/uL (0.8-4.8); Mean Corpuscular HGB Conc 32.5 g/dL (30.0-36.0); Mean Corpuscular Hemoglobin 29.1 pg (28.0-34.0); Mean Corpuscular Volume 89.6 fl (80-94); Mean Platelet Volume 10.5 fL (7.4-10.4); Monocytes % 6.5 %; Neutrophils # 10.28 10^3/uL (1.8-7.7); Neutrophils % 70.1 %; Nucleated Red Blood Cells % 0 %; Platelet Count 432 10^3/cmm (130-400); Red Blood Count 3.85 10^6/uL (4.1-5.3); Red Cell Distribution Width 15.6 % (12.1-15.1); White Blood Count 14.7 10^3/uL (4.0-10.0)
[2021-07-17 06:15] LABS: Alanine Aminotransferase 45 U/L (0-41); Albumin Level 3.6 g/dL (3.5-5.2); Alkaline Phosphatase 177 IU/L (40-130); Anion Gap 24.5 (5-19); Aspartate Amino Transferase 61 U/L (0-40); Blood Urea Nitrogen 18 mg/dL (6-20); Calcium 10.5 mg/dL (8.5-10.5); Carbon Dioxide 17 mmol/L (22-29); Chloride 102 mmol/L (98-107); Globulin 3.5 g/dL (1.3-4.6); Glomerular Filtration Rate 49.3 mL/min (90-130); Glucose 134 mg/dL (65-115); Osmolality Calculated 294 mOsm/kg (285-295); Potassium 3.5 mmol/L (3.5-5.1); Sodium 140 mmol/L (136-145); Total Bilirubin 0.5 mg/dL (0.15-1.2); Total Protein 7.1 g/dL (6.6-8.7)
--- NOTE | 2021-07-17 07:47 | PC.NURSE ---
Moved to bed 9 for 1:1 observation d/t expressed SI to physician. He is resting in bed, has uncontrolled constant movement & expresses frustration over inability to control his body. When asked about SI he stated, Well yes, I can't control my body . Refused paper scrubs, all belongings & equipment removed from room for pt's safety. 1:1 sitter outside room. VSS, drinking water.
[2021-07-17 07:51] LABS: Amphetamines Screen Urine Positive (Negative); Barbiturates Screen Urine Negative (Negative); Benzodiazepines Screen Urine Negative (Negative); Cocaine Screen Urine Negative (Negative); Opiate Screen Urine Negative (Negative); PCP Screen Urine Negative (Negative); THC Screen Urine Negative (Negative)
[2021-07-17 08:04] LABS: Add Urine Culture? No; Bacteria Urine 1+ /hpf; Bilirubin Urine Neg (Negative); Blood Urine 2+ (Negative); Glucose Urine UA Norm (Normal); Ketones Urine Negative (Negative); Leukocyte Esterase Urine Negative (Negative); Mucus Urine 1+ /hpf; Nitrate Urine Negative (Negative); Protein Urine Trace (Negative); RBC Urine 0-4 /hpf (0-2); Squamous Epithelial Cell Urine RARE /hpf (0-5); Urine Appearance Clear (CLEAR); Urine Color Yellow (Yellow); Urobilinogen Urine 1 mg/dL (Negative); pH Urine 5 (5-7)
[2021-07-17] MEDS: sodium chloride 0.9% 1,000 ML 999 ML IV (08:14)
--- NOTE | 2021-07-17 09:00 | CTR_ITS ---
PROCEDURE INFORMATION: Exam: CT Head Without Contrast Exam date and time: 07/17/2021 9:19 AM Age: 50 years old Clinical indication: Other: Abnormal movement TECHNIQUE: Imaging protocol: Computed tomography of the head without contrast. Radiation optimization: All CT scans at this facility use at least one of these dose optimization techniques: automated exposure control; mA and/or kV adjustment per patient size (includes targeted exams where dose is matched to clinical indication); or iterative reconstruction. COMPARISON: CT head wo con* [id number] 09/12/2019 4:08 PM RADIATION DOSE METRICS: Total DLP (mGy-cm): 1116.55 FINDINGS: Brain: Normal. No hemorrhage. Unremarkable white matter. No mass effect. Cerebral ventricles: No ventriculomegaly. Paranasal sinuses: Visualized sinuses are unremarkable. No fluid levels. Mastoid air cells: Visualized mastoid air cells are well aerated. Soft tissues: Unremarkable. Bones/joints: Unremarkable. No acute fracture. CT/CT head wo con* [id number] IMPRESSION: No acute intracranial abnormality.
--- NOTE | 2021-07-17 10:39 | PC.NURSE ---
Physician completed 96h hold paperwork d/t pt verbalized suicidal ideation. Report called to [facility], advised them of SI & 96h hold paperwork.
[2021-07-17] MEDS: acetaminophen 325 mg Tablet 650 MG PO (14:12)
[2021-07-17] MEDS: ibuprofen 600 mg Tablet PO (22:42)
[2021-07-17] MEDS: benztropine 1 mg Tablet PO (22:42)
[2021-07-17] MEDS: trazodone 50 mg Tablet PO (22:42)
[2021-07-18 06:00] VITALS: BP 115/70; PULSE 85; RESP 17; TEMP 36.6; O2SAT 97
--- NOTE | 2021-07-18 09:53 | PC.OT ---
NURSING REQUESTS FOR THERAPY TO HOLD EVALUATION TODAY PATIENT IS SLEEPING. WILL ATTEMPT AGAIN AT A LATER TIME
--- NOTE | 2021-07-18 12:19 | P.NPUHP_ITS ---
Providers/Chief Complaint Admitting Physician: Constantine Dennison MD Primary Care Provider: Nishant Reynoso NP Chief Complaint: UNCONTROLLABLE BODY MOVEMENT HPI NPU History of Present Illness Vivek Corral is a 50 year old male admitted to our emergency department with the following report: 50-year-old male has a history of previous methamphetamine abuse he states he no longer uses and its been quite some time.? He states he also has a psych history is on psychiatric meds.? States over the last 2 days he has had uncontrolled movement to his whole body and he states that he just cannot get it under control and is getting worse.? He here does have what appears to be a possible extraparametal syndrome moving his legs arms.? Denies any pain denies any fever denies any other complaints Associated symptoms: Deny chest pain, dyspnea, headache(s), nausea, rash or vomiting He has been quite sedated this morning. I could not arouse him earlier. Now at 12 PM he can be aroused but falls back asleep. He says that he came here because of the involuntary movements. He is not having any unusual movements now when he is awake. He said maybe that is because he is too sore from all the flopping around he did yesterday and the day before. I told him that I was hoping that it was methamphetamine induced. He says he has not left his house for days and has not used any methamphetamine. He was told that there was methamphetamine in his system. He had no explanation for that. He has not had refills on his Cymbalta or BuSpar recently. He says that he has been taking them. He says that the BuSpar which was added last month has not helped his anxiety. He was too sedated to really have much of a conversation. He requested to have a more complete evaluation tomorrow. Below is his most recent outpatient appointment with his psychiatrist. Psychiatry SOAP Note Diagnosis (1) Bipolar disorder, unspecified: ?Status:?Acute ?Qualifiers: ?Active/Remission status:?currently active??Current bipolar episode type:?mixed??Current episode severity:?moderate? Qualified Code(s):?F31.62 - Bipolar disorder, current episode mixed, moderate (2) Other stimulant dependence, in remission: ?Status:?Acute (3) Generalized anxiety disorder: ?Status:?Acute Psychiatry SOAP Note Time In: 11:20 Time Out: 11:35 Subjective Subjective: Vivek is a 50-year-old male, who is being seen today by telephone due to COVID 19 precautions for medication management and follow up for his bipolar disorder, generalized anxiety disorder, and stimulant use disorder in remission. He was last seen April 13, 2021.? Vivek states he has not been doing well.? States his body is really sore from carrying wood.? He feels the soreness has caused him not to sleep as well.? Describes not sleeping well for 2 nights, only sleeping a couple hours per night, and last night slept 12 hours and he still feels exhausted.? He continues to report his anxiety is high.? His insurance would only fill for 2 weeks of the clonazepam.? States it helped at first but then seemed to not help as much.? He questions if it stopped helping as much because his body was going on a bipolar high.? His insurance reports he must trial doxepin, hydroxyzine, or buspirone for 60 days before they will cover the cost of the clonazepam.? Vivek would like to trial 1 of these other medications and does not choose to pay [id number] for the clonazepam. Vivek describes during this bipolar high he got into an argument with his mother over stupid stuff.? Vivek states he felt he was feeling better with the Cymbalta until he carried in the firewood.? Vivek is agreeable to continuing the Cymbalta today and a trial of buspirone.? We will place the clonazepam on hold.? Vivek reports the following: Mood: Down and out Sleep: States he has not been sleeping well recently.? States he had a couple nights where he did not sleep at all and then a night where he slept a couple hours, states last night he slept 12 hours and he still feels exhausted Appetite: Adequate Level of energy: Adequate Level of anxiety: Reports high anxiety.? States the insurance only filled 2 weeks of the clonazepam.? He states it seemed to help at first but then seemed to not help as much. Ability to do ADLs: Independent Frightening/uncomfortable/or racing thoughts: Denies Thoughts of , suicide, or violence towards others: Reports suicidal thoughts but no plans Hearing voices or seeing hallucinations/visions: Denies ROS Musculoskeletal: Reports soreness all over.? Relates this to caring in wood for 2 days Objective Objective: Alert and oriented to person place and time.? Patient describes mood as down and out ? Speech is normal rate, rhythm, and volume.? Thought process is logical and organized.? No hallucinatory activity noted.? Currently denies thoughts of harming self and others.? Judgment and insight are intact.? Memory is intact for recent and remote events.? Attention and concentration are within normal limits. Fund of knowledge is estimated to be average. Affect, appearance, behavior, eye contact, and gait unable to be assessed due to telephone visit for COVID 19 precautions.? March 2021 urine drug screen was negative Assesment & Plan Assessment: Vivek reports high anxiety, depression, and difficulty sleeping that comes and goes Plan: Continue Cymbalta 60 mg daily Stop clonazepam. Start BuSpar 10 mg twice per day Prescription refills are sent to [facility] pharmacy Follow-up in 1 month.? Vivek instructed if symptoms worsen or the need to be seen sooner to call the clinic for an earlier appointment Continue individual psychotherapy Meds NPU Home Medications Medication Instructions Recorded Confirmed Last Taken Type metoprolol tartrate 25 mg tablet 25 mg PO BID 07/25/20 03/23/21 07/25/20 History ramipril 1.25 mg capsule 1.25 mg PO DAILY 02/23/21 03/23/21 Unknown History baclofen 20 mg tablet 20 mg PO TID 07/17/21 07/17/21 Unknown History pantoprazole 40 mg tablet,delayed 40 mg PO DAILY 07/17/21 07/17/21 Unknown History release Allergies Allergy/AdvReac Type Severity Reaction Status Date / Time sulfamethoxazole Allergy SWOLLEN Verified 03/23/21 11:21 [From ] TONGUE trimethoprim [From ] Allergy SWOLLEN Verified 03/23/21 11:21 TONGUE PFSH NPU PFSH: Medical History Bilateral renal stones Bipolar disorder, current episode depressed, moderate Cannabis dependence, uncomplicated Cervical disc disorder with myelopathy of mid-cervical region Cervical radiculopathy Cervical spondylosis Cervical spondylosis with myelopathy Generalized anxiety disorder group home (current) use of opiate analgesic Long-term use of high-risk medication Neck pain of over 3 months duration Opioid contract exists Other stimulant dependence, in remission Other stimulant dependence, in remission Other stimulant dependence, uncomplicated Pain management contract signed Psychiatric care Surgical History History of cholecystectomy History of knee surgery had MRSA Family History Brother Hypertension Grandfather Hypertension Father No problems noted. Social History Quit status (tobacco): has tried quititng Number of times tried to quit tobacco: 4 Second hand smoke exposure: No Alcohol intake: current Alcohol intake frequency: few times a month Alcohol type: beer Household members: family Marital status: Current occupational status: unemployed and disabled History of recent travel: No Mental Status Exam MSE Comments: This is a 50-year-old overweight male who appears approximately his stated age and is in no acute distress. He has been sleepy and did not arouse to calling his name and touching him lightly earlier this morning. Now at noon he is arousable but he falls back asleep fairly easily. Psychomotor activity is decreased. There are no abnormal movements. psychomotor activity is decreased. Speech is diminished because of sedation. Seems appropriate. Alert, orientation questions were not asked because he is so sleepy Attention and concentration diminished because of sedation. Memory is intact Mood is okay. Affect is sedated, calm Thought process is logical and goal-directed. Thought content: Denies auditory and visual hallucinations. No delusions or paranoia are noted. No current suicidal ideation, and no homicidal ideation. Fund of knowledge is probably average. Insight and judgment appear to be poor. Impulse control is poor. Vitals/I&O/Wt Last Vital Signs Temp 97.9 F 07/18/21 06:00 Pulse 85 07/18/21 06:00 Resp 17 07/18/21 06:00 BP 115/70 07/18/21 06:00 Pulse Ox 97 07/18/21 06:00 Data NPU : 07/17/21 05:45 07/17/21 05:45 A&P Assessment and plan (1) Bipolar disorder, unspecified: Status: Acute Qualifiers: Active/Remission status: currently active Current bipolar episode type: mixed Current episode severity: moderate Qualified Code(s): F31.62 - Bipolar disorder, current episode mixed, moderate (2) Cannabis dependence, uncomplicated: Status: Acute (3) Other stimulant dependence, uncomplicated: Status: Acute (4) Generalized anxiety disorder: Status: Acute Plan This is a 50-year-old male who presented to the emergency room with abnormal movements and suicidal ideation because of those movements. He was positive for methamphetamine but denies recent use. He is too sedated at this point to really evaluate the movements seem to be gone. Plan: 1. Continue current medication. We will continue continue off medications for now. 2. Continue every 15 minute checks for safety. 3. Encourage individual, group and milieu therapies. 4. Encourage sober living treatment after discharge at the highest level of care to which he is willing to commit. 5. We will monitor for safety for himself in the community prior to discharge. Involuntary Hold Information 96 Hour Hold: 96 Hour Involuntary Admission: Yes 96 Hour Hold Ending Date: 07/22/21 96 Hour Hold Ending Time: 00:01 Attestations NPU Medical Necessity Statement*: Inpatient hospitalization is medically necessary and the clinically appropriate intervention at this time. We will initiate m edications and make changes as indicated. He will be in the hospital for over 2 midnights. 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
[2021-07-18 13:34] VITALS: BP 133/88; PULSE 73; RESP 14; TEMP 36.5; O2SAT 98
[2021-07-18] MEDS: baclofen 10 mg Tablet 20 MG PO ×2 (15:05→20:58)
[2021-07-18] MEDS: pantoprazole DR 40 mg Tablet PO (15:06)
--- NOTE | 2021-07-18 15:27 | PC.SOCIAL ---
Patient did not attend group.
[2021-07-18 19:39] VITALS: BP 134/85; PULSE 80; RESP 17; TEMP 36.7; O2SAT 97
[2021-07-18] MEDS: trazodone 50 mg Tablet PO (20:58)
[2021-07-18] MEDS: ibuprofen 600 mg Tablet PO (21:03)
[2021-07-18] MEDS: benztropine 1 mg Tablet PO (21:04)
[2021-07-18] MEDS: diphenhydrAMINE 50 mg Capsule PO (21:35)
[2021-07-18] MEDS: acetaminophen 325 mg Tablet 650 MG PO (23:53)
[2021-07-18] MEDS: OLANZapine 5 mg ODT PO (23:54)
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
[2021-07-19] MEDS: ibuprofen 600 mg Tablet PO (02:27)
[2021-07-19] MEDS: hyDROXYzine 25 mg Capsule 50 MG PO (02:27)
--- NOTE | 2021-07-19 05:51 | PC.NURSE ---
2103 Patient was given cogentin for extrapyramital movements. He was flailing his arms and then rubbing his head. He c/o of neck pain and left knee pain. Then he fell back asleep. 2134 Patient was moaning out while in the bed. Ibuprofen and Benadryl po were administered for pain and restlessness. 2358 Patient up to bathroom and was having trouble walking related to bilateral knee pain. He continued to move his arms in an abnormal way and kept twisting his head from side to side. Patient received Tylenol and Zyprexa. 229 Patient is again moaning as if in pain and restless tossing in the bed. Ibuprofen and Vistaril were given for discomfort. 344 Patient is resting quietly in bed with no moaning.
[2021-07-19 06:00] VITALS: BP 119/76; PULSE 78; RESP 17; TEMP 36.7; O2SAT 94
[2021-07-19] MEDS: pantoprazole DR 40 mg Tablet PO (10:14)
[2021-07-19] MEDS: diphenhydrAMINE 50 mg Capsule PO (10:14)
[2021-07-19] MEDS: baclofen 10 mg Tablet 20 MG PO ×3 (10:14→20:49)
--- NOTE | 2021-07-19 11:46 | W.PM.NPUPNS ---
Subjective NPU Subjective: He has been in bed pretty much the whole time that he has been here. He is still sleepy this morning. I told him it was like she was coming off of meth binge. He still denies using methamphetamine although it was in his urine on admission. He does not have abnormal movements now. He still says that he is sore. He had his face covered with his arm much of the time. It was like light was bothering his eyes. He denies any suicidal ideation now. He says that he is not really depressed. He says that he lives with his mother. He does not work because of multiple medical problems. He has problems with his knees and bad arthritis. Mental Status Exam MSE Comments: This is a 50-year-old overweight male who appears approximately his stated age and is in no acute distress. He is still in bed at 11:30 AM. He aroused with saying his name and did not fall back asleep. When asked frequently has that the light was bothering his eyes. although the light in the room was not on. Psychomotor activity is decreased. There are no abnormal movements. Speech is diminished because of sedation. Seems appropriate. Alert, orientation questions were not asked because he is so sleepy Attention and concentration diminished because of sedation. Memory is intact Mood is okay. Affect is moderately dysphoric Thought process is logical and goal-directed. Thought content: Denies auditory and visual hallucinations. No delusions or paranoia are noted. No current suicidal ideation, and no homicidal ideation. Fund of knowledge is probably average. Insight and judgment appear to be poor. Impulse control is poor. Cognition: Patient Appearance: Disheveled/Poor Hygiene Level of Consciousness: Awake and Alert Patient Cognition Impaired: No Ability to Follow Directions: Good Patient Orientation (long list): Person, Place, Time, Name and Age Comprehension Ability: No Impairment Hallucination Type: None Delusion Description: Not Present Thought Process: Appropriate Affect: Affect Description: Calm and Sad Behavior: Patient Behavior: Appropriate and Cooperative Speech Pattern: Appropriate and Clear Vitals/I&O/Wt Last Vital Signs Temp 98.0 F 07/19/21 06:00 Pulse 78 07/19/21 06:00 Resp 17 07/19/21 06:00 BP 119/76 07/19/21 06:00 Pulse Ox 94 07/19/21 06:00 Data NPU : 07/17/21 05:45 07/17/21 05:45 A&P Assessment and plan (1) Bipolar disorder, unspecified: Status: Acute Qualifiers: Active/Remission status: currently active Current bipolar episode type: mixed Current episode severity: moderate Qualified Code(s): F31.62 - Bipolar disorder, current episode mixed, moderate (2) Cannabis dependence, uncomplicated: Status: Acute (3) Other stimulant dependence, uncomplicated: Status: Acute (4) Generalized anxiety disorder: Status: Acute Plan This is a 50-year-old male who presented to the emergency room with abnormal movements and suicidal ideation because of those movements. He was positive for methamphetamine but denies recent use. Plan: 1. Continue current medication. We will continue continue off medications for now. 2. Continue every 15 minute checks for safety. 3. Encourage individual, group and milieu therapies. 4. Encourage sober living treatment after discharge at the highest level of care to which he is willing to commit. 5. We will monitor for safety for himself in the community prior to discharge. Involuntary Hold Information 96 Hour Hold: 96 Hour Involuntary Admission: Yes 96 Hour Hold Ending Date: 07/22/21 96 Hour Hold Ending Time: 00:01 Attestations NPU Medical Necessity Statement*: Inpatient hospitalization is medically necessary and the clinically appropriate intervention at this time. We will initiate medications and make changes as indicated. 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
[2021-07-19 13:45] VITALS: BP 130/76; PULSE 89; RESP 16; TEMP 36.7; O2SAT 96
[2021-07-19 20:01] VITALS: BP 138/88; PULSE 109; RESP 18; TEMP 36.4; O2SAT 97
[2021-07-19] MEDS: trazodone 50 mg Tablet PO (20:49)
[2021-07-19] MEDS: acetaminophen 325 mg Tablet 650 MG PO (22:32)
[2021-07-19] MEDS: OLANZapine 5 mg ODT PO (22:33)
[2021-07-20] MEDS: ibuprofen 600 mg Tablet PO (00:36)
[2021-07-20] MEDS: haloperidol 5 mg Tablet PO (00:36)
[2021-07-20 03:37] VITALS: BP 146/96; PULSE 96; RESP 17; TEMP 36.8; O2SAT 92
--- NOTE | 2021-07-20 05:07 | PC.NURSE ---
Patient has been in bed all shift except to use the bathroom. He continually moans and groans any time that he moves or changes position. He stated that he felt horrible and that his legs and head hurt. Tylenol and vistaril were given for symptoms. The patient continued to moan out 2 hours later and was given Ibuprofen and zyprexa. This did not help the patient. Haldol was given to ease his anxiety and this also did not stop the moaning and anxiety that went along with it. Per charge nurse Kee, Ativan 2mg IM was given in the right deltoid. Patient is resting more comfortably now but still has an occassional moan and groan.
[2021-07-20 06:00] VITALS: BP 134/85; PULSE 67; RESP 16; TEMP 36.7; O2SAT 96
--- NOTE | 2021-07-20 11:37 | P.CONIM_ITS ---
Providers/Reason For Consult Consulting Physician/Specialty*: Patrick Rodriguez Reason for Consult*: Lethargy, possible infection Attending Physician: Constantine Dennison MD Primary Care Provider: Nishant Reynoso NP History of Present Illness History of Present Illness Vivek Corral is a 50 year old male who was admitted to the neuropsychiatric unit on July 17 secondary to abnormal body movements, methamphetamine use. Abnormal movements have gone away, but he has been very sleepy, and this seems to be progressive during his stay. On admission he had some acute kidney injury, white blood cell count was also elevated. Urine was nonspecific, and likely the small number of white blood cells that were in it or secondary to concentrated urine. When I try to visit with the patient, he will wake up and have appropriate responses, but then falls back asleep. I note that he has had quite a bit of as needed medications over the last 24 hours, and is getting muscle relaxant scheduled. He has not demonstrated any fevers, and vital signs are stable. Unfortunately secondary to his sleepiness I cannot get an adequate history and physical out of him. Review of Systems General: Reports: ROS unobtainable due to medical condition (We will not persisted. In review of systems secondary to sleepiness) Medications/Allergies Home Medications Medication Instructions Recorded Confirmed Last Taken Type baclofen 20 mg tablet 20 mg PO TID 07/17/21 07/17/21 Unknown History pantoprazole 40 mg tablet,delayed 40 mg PO DAILY 07/17/21 07/17/21 Unknown History release Allergies Allergy/AdvReac Type Severity Reaction Status Date / Time sulfamethoxazole Allergy SWOLLEN Verified 03/23/21 11:21 [From ] TONGUE trimethoprim [From ] Allergy SWOLLEN Verified 03/23/21 11:21 TONGUE Current Medications Generic Name Dose Route Start Last Admin Trade Name Freq PRN Reason Stop Dose Admin Acetaminophen 650 mg 07/17/21 11:14 07/19/21 22:32 Acetaminophen 325 Mg Tablet PO 650 mg Q4H PRN Administration MILD PAIN Benztropine Mesylate 1 mg 07/17/21 11:14 07/18/21 21:04 Benztropine 1 Mg Tablet PO 1 mg BID PRN Administration Mild Extrapyramidal symptoms Diphenhydramine HCl 50 mg 07/18/21 21:11 07/19/21 10:14 Diphenhydramine 50 Mg Capsule PO 50 mg Q4H PRN Administration AGITATION Haloperidol 5 mg 07/17/21 11:14 07/20/21 00:36 Haloperidol 5 Mg Tablet PO 5 mg Q4H PRN Administration AGITATION Ibuprofen 600 mg 07/17/21 22:36 07/20/21 00:36 Ibuprofen 600 Mg Tablet PO 600 mg Q6H PRN Administration MODERATE PAIN Olanzapine 5 mg 07/17/21 11:14 07/19/21 22:33 Olanzapine 5 Mg Odt PO 5 mg Q4H PRN Administration Agitation/Psychosis Pantoprazole Sodium 40 mg 07/18/21 09:00 07/19/21 10:[address] 40 Mg Tablet PO 40 mg DAILY JUNIOR Administration PFSH Acute PFSH: Medical History Bilateral renal stones Bipolar disorder, current episode depressed, moderate Cannabis dependence, uncomplicated Cervical disc disorder with myelopathy of mid-cervical region Cervical radiculopathy Cervical spondylosis Cervical spondylosis with myelopathy Generalized anxiety disorder [facility] (current) use of opiate analgesic Long-term use of high-risk medication Neck pain of over 3 months duration Opioid contract exists Other stimulant dependence, in remission Other stimulant dependence, in remission Other stimulant dependence, uncomplicated Pain management contract signed Psychiatric care Surgical History History of cholecystectomy History of knee surgery had MRSA Family History Brother Hypertension Grandfather Hypertension Father No problems noted. Social History Quit status (tobacco): has tried quititng Number of times tried to quit tobacco: 4 Second hand smoke exposure: No Alcohol intake: current Alcohol intake frequency: few times a month Alcohol type: beer Household members: family Marital status: Current occupational status: unemployed and disabled History of recent travel: No Vitals/I&O/Wt Last Vital Signs Temp 98.0 F 07/20/21 06:00 Pulse 67 07/20/21 06:00 Resp 16 07/20/21 06:00 BP 134/85 07/20/21 06:00 Pulse Ox 96 07/20/21 06:00 Physical Exam Narrative: General exam is a white male, no distress, sleeping but awakens and will follow instructions briefly before going back to sleep. No abnormal movements, or twitching is noted. HEENT: Pupils equally round. Oropharynx clear. Dentition poor. Neck is supple no lymphadenopathy or thyromegaly Cardiovascular regular rate and rhythm without murmur, no S3 or S4 Lungs clear no wheezing or crackles Abdomen is soft nontender with positive bowel sounds. No obvious organomegaly exam is deferred Extremities no cyanosis clubbing or edema, cap refill brisk Skin no rash Neuro no obvious focal deficits. Data : 07/17/21 05:45 07/17/21 05:45 Other Labs: LFTs on admission demonstrated transaminitis. Urinalysis demonstrated 0-4 reds, 5-10 whites. It was concentrated with a specific gravity of 1.020 A&P Assessment and plan (1) Lethargy: I have this is probably multifactorial. I doubt infection is playing a role but it should be explored. We will reduce many of his as needed's, including Benadryl, hydroxyzine, trazodone at night. Antipsychotics, and benzodiazepines are listed as needed and should be used sparingly. As scheduled muscle relaxant may be playing a significant role. Will reduce baclofen to 10 mg 3 times daily and make this as needed Repeat CBC, CMP, urinalysis, TSH Status: Acute (2) Elevated white blood cell count: See above, repeat lab Status: Acute (3) Transaminitis: Check hepatitis panel, HIV Status: Acute Plan Polysubstance abuse Multiple other medical problems including chronic back pain Thank you for this consultation. I will follow up on lab ordered, and recheck w ith the patient tomorrow. Please call with any questions or concerns. 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
[2021-07-20 13:14] LABS: Thyroid Stimulating Hormone 2.69 uIU/mL (0.27-4.20)
[2021-07-20 14:00] VITALS: BP 117/80; PULSE 62; RESP 16; TEMP 36.5; O2SAT 97
[2021-07-20 14:54] LABS: Hepatitis B Core IgM Non-Reactive (Nonreactive); Hepatitis B Surface Antigen Non-Reactive (Nonreactive); Hepatitis C Virus Antibody Non-Reactive (Nonreactive)
[2021-07-20 15:27] LABS: HIV 1 & 2 Antibody Non-Reactive (Non-Reactiv); HIV 1 & 2 Antigen Non-Reactive (Non-Reactiv)
[2021-07-20 21:08] VITALS: BP 123/84; PULSE 90; RESP 17; TEMP 36.7; O2SAT 97
[2021-07-20 23:40] LABS: Add Urine Culture? No; Bacteria Urine TRACE /hpf; Bilirubin Urine Neg (Negative); Blood Urine Neg (Negative); Glucose Urine UA Norm (Normal); Ketones Urine Negative (Negative); Leukocyte Esterase Urine Negative (Negative); Mucus Urine TRACE /hpf; Nitrate Urine Negative (Negative); Protein Urine Neg (Negative); RBC Urine 0-4 /hpf (0-2); Squamous Epithelial Cell Urine 0-4 /hpf (0-5); Urine Appearance Clear (CLEAR); Urine Color Yellow (Yellow); Urobilinogen Urine Norm (Negative); WBC Urine 0-4 /hpf (0-5); pH Urine 7 (5-7)
[2021-07-21 06:00] VITALS: BP 137/95; PULSE 95; RESP 17; TEMP 36.9; O2SAT 97
[2021-07-21 07:38] LABS: Basophils % 0.2 %; Eosinophils # 0.1 10^3/uL (0.0-0.8); Hematocrit 39.6 % (42.0-52.0); Hemoglobin 12.6 g/dL (11.7-16.6); Lymphocytes # 2.8 10^3/uL (0.8-4.8); Lymphocytes % 45.5 %; Mean Corpuscular HGB Conc 31.8 g/dL (30.0-36.0); Monocytes # 0.4 10^3/uL (0.2-0.9); Monocytes % 5.9 %; Neutrophils # 2.77 10^3/uL (1.8-7.7); Neutrophils % 45.7 %; Nucleated Red Blood Cells % 0 %; Platelet Count 464 10^3/cmm (130-400); Red Blood Count 4.35 10^6/uL (4.1-5.3); Red Cell Distribution Width 15.9 % (12.1-15.1); White Blood Count 6.1 10^3/uL (4.0-10.0)
[2021-07-21] MEDS: acetaminophen 325 mg Tablet 650 MG PO (08:36)
[2021-07-21] MEDS: pantoprazole DR 40 mg Tablet PO (08:36)
[2021-07-21] MEDS: benztropine 1 mg Tablet PO (08:36)
[2021-07-21] MEDS: baclofen 10 mg Tablet PO (08:36)
--- NOTE | 2021-07-21 08:57 | PM.PN ---
Subjective Subjective: Vivek denies any complaints to me today. He is interactive, conversant. No chest pain or shortness of breath. Medications: Reviewed: Yes Vitals/I&O/Wt Last Vital Signs Temp 98.5 F 07/21/21 06:00 Pulse 95 07/21/21 06:00 Resp 17 07/21/21 06:00 BP 137/95 07/21/21 06:00 Pulse Ox 97 07/21/21 06:00 Physical Exam Narrative: General exam is a white male, no distress, conversant. Some repetitive movements while he is standing talking to me but does go away when I tell him to be still that I am listening to him. Neck is supple no lymphadenopathy or thyromegaly Cardiovascular regular rate and rhythm without murmur, no S3 or S4 Lungs clear no wheezing or crackles Abdomen is soft nontender with positive bowel sounds. No obvious organomegaly exam is deferred Extremities no cyanosis clubbing or edema, cap refill brisk Skin no rash Neuro no obvious focal deficits. Data : 07/21/21 07:13 07/17/21 05:45 A&P Assessment and plan (1) Lethargy: I have this is probably multifactorial. I doubt infection is playing a role but it should be explored. We will reduce many of his as needed's, including Benadryl, hydroxyzine, trazodone at night. Antipsychotics, and benzodiazepines are listed as needed and should be used sparingly. As scheduled muscle relaxant may be playing a significant role. Will reduce baclofen to 10 mg 3 times daily and make this as needed With the above changes he is markedly improved CBC is normal. CMP pending. Urinalysis not concerning. TSH normal. Hepatitis panel negative. HIV negative. Status: Acute (2) Elevated white blood cell count: See above, repeat lab Status: Acute (3) Transaminitis: Check hepatitis panel, HIV Status: Acute Plan Polysubstance abuse Multiple other medical problems including chronic back pain We will sign off. Patient seems markedly improved. I will review CMP when it becomes available. Attestations Medical Necessity Statement*: As per primary Coding Level of Care Code Acute [employer] [facility] Larry Diagnoses Lethargy R53.83 Elevated white blood cell count D72.829 Transaminitis R74.01
[2021-07-21 09:19] LABS: Alanine Aminotransferase 25 U/L (0-41); Albumin Level 3.3 g/dL (3.5-5.2); Alkaline Phosphatase 129 IU/L (40-130); Blood Urea Nitrogen 8 mg/dL (6-20); Calcium 10.2 mg/dL (8.5-10.5); Carbon Dioxide 23 mmol/L (22-29); Chloride 99 mmol/L (98-107); Globulin 3.1 g/dL (1.3-4.6); Glomerular Filtration Rate 101.9 mL/min (90-130); Glucose 130 mg/dL (65-115); Osmolality Calculated 282 mOsm/kg (285-295); Sodium 136 mmol/L (136-145); Total Bilirubin 0.4 mg/dL (0.15-1.2); Total Protein 6.4 g/dL (6.6-8.7)
[2021-07-21 09:30] LABS: Anion Gap 17.8 (5-19); Aspartate Amino Transferase 25 U/L (0-40); Potassium 3.8 mmol/L (3.5-5.1)
--- NOTE | 2021-07-21 10:28 | P.NPUDS_ITS ---
Diagnoses at Discharge Discharge Diagnosis (1) Lethargy: Status: Acute (2) Elevated white blood cell count: Status: Acute (3) Transaminitis: Status: Acute Reason for Visit Reason for Visit: UNCONTROLLABLE BODY MOVEMENT Brief History: History of Present Illness Vivek Corral is a 50 year old male admitted to our emergency department with the following report: 50-year-old male has a history of previous methamphetamine abuse he states he no longer uses and its been quite some time.? He states he also has a psych history is on psychiatric meds.? States over the last 2 days he has had uncontrolled movement to his whole body and he states that he just cannot get it under control and is getting worse.? He here does have what appears to be a possible extraparametal syndrome moving his legs arms.? Denies any pain denies any fever denies any other complaints Associated symptoms: Deny chest pain, dyspnea, headache(s), nausea, rash or vomiting He has been quite sedated this morning.? I could not arouse him earlier.? Now at 12 PM he can be aroused but falls back asleep.? He says that he came here because of the involuntary movements.? He is not having any unusual movements now when he is awake.? He said maybe that is because he is too sore from all the flopping around he did yesterday and the day before.? I told him that I was hoping that it was methamphetamine induced.? He says he has not left his house for days and has not used any methamphetamine.? He was told that there was meth amphetamine in his system.? He had no explanation for that.? He has not had refills on his Cymbalta or BuSpar recently.? He says that he has been taking them.? He says that the BuSpar which was added last month has not helped his anxiety.? He was too sedated to really have much of a conversation.? He requested to have a more complete evaluation tomorrow. Hospital Course Hospital Course He slowly acclimated to the individual, group and milieu therapies provided. He was in bed the first 3 days. He received a few sedating medications but not significant. He had no abnormal movements while he was sleeping even when woken up. He was given 3 doses of Cogentin 1 mg. He wanted some of that to take as an outpatient. He said that he felt those helped his abnormal movements. He said that the abnormal movements have been there for years. He has had many medical problems which have caused difficulty and he has been in bed much of the time for the last year. He tolerated these doses and showed steady improvement during his stay. He was able to contract for safety outside hospital prior to discharge. During the hospitalization, patient had routine laboratory studies which were within normal limits except for few outliers. Additionally there was a general medical evaluation which was also within normal limits and revealed no new acute processes. Discharge Summary: At the time of discharge, lethality was denied. Mood and anxiety were well managed. Patient endorsed a plan to follow-up with the aftercare recommendations of the treatment team. Patient was evaluated and deemed to be absent credible lethality, and had achieved the maximum benefit from an inpatient hospitalization, so was discharged. He was on a 96-hour hold and there was no reason to request a 21-day commitment. He did not want to stay longer. He was much improved Involuntary Hold Information 96 Hour Hold: 96 Hour Involuntary Admission: Yes 96 Hour Hold Ending Date: 07/22/21 96 Hour Hold Ending Time: 00:01 Mental Status Exam MSE Comments: This is a 50-year-old overweight male who appears somewhat older than his stated age and is in no acute distress. He is awake and sitting on the side of his bed. He can get up and walk without much difficulty. He does not need a walker. There are no abnormal movements noted. He does constantly rub his head because he said it helps his neck pain.[id number] psychomotor activity is mildly decreased. Speech is at a regular rate and rhythm, normal volume, good articulation, not pressured. Alert, oriented X3 Attention and concentration appears to be normal. Memory is intact Mood is mildly depressed. Affect is mildly dysphoric. Thought process is logical and goal-directed. Thought content: Denies auditory and visual hallucinations. No delusions or paranoia are noted. No current suicidal ideation, and no homicidal ideation. Fund of knowledge is average. Insight and judgment appear to be fair. Impulse control is fairly good. Discharge Data Studies Completed and Pending: Completed Studies During Hospitalization Category Date Time Status CT head wo con* [id number] Urgent Cat Scan 07/17/21 09:00 Completed Pending at discharge Category Date Time Status Miscellaneous Tatyana t Routine Lab 07/20/21 Received Radiology Impressions Head CT 07/17/21 09:00 IMPRESSION: No acute intracranial abnormality. Laboratory Results WBC 6.1 10^3/uL (4.0- 10.0) 07/21/21 07:13 RBC 4.35 10^6/uL (4.1 -5.3) 07/21/21 07:13 Hgb 12.6 g/dL (11.7-1 6.6) 07/21/21 07:13 Hct 39.6 % (42.0-52.0 ) L 07/21/21 07:13 MCV 91.0 fl (80-94) 07/21/21 07:13 MCH 29.0 pg (28.0-34. 0) 07/21/21 07:13 MCHC 31.8 g/dL (30.0-3 6.0) 07/21/21 07:13 RDW 15.9 % (12.1-15.1 ) H 07/21/21 07:13 Plt Count 464 10^3/cmm (130 -400) H 07/21/21 07:13 MPV 10.0 fL (7.4-10.4 ) 07/21/21 07:13 Neut % (Auto) 45.7 % 07/21/21 07:13 Lymph % (Auto) 45.5 % 07/21/21 07:13 Izard % (Auto) 5.9 % 07/21/21 07:13 Eos % (Auto) 2.0 % 07/21/21 07:13 Baso % (Auto) 0.2 % 07/21/21 07:13 Neut # (Auto) 2.77 10^3/uL (1.8 -7.7) 07/21/21 07:13 Lymph # (Auto) 2.8 10^3/uL (0.8- 4.8) 07/21/21 07:13 Izard # (Auto) 0.4 10^3/uL (0.2- 0.9) 07/21/21 07:13 Eos # (Auto) 0.1 10^3/uL (0.0- 0.8) 07/21/21 07:13 Baso # (Auto) 0.0 10^3/uL (0.0- 0.1) 07/21/21 07:13 Nucleated RBC % (a uto) 0 % 07/21/21 07:13 Nucleated RBCs # 0.0 /100WBC 07/21/21 07:13 Sodium 136 mmol/L (136-1 45) 07/21/21 07:13 Potassium 3.8 mmol/L (3.5-5 .1) 07/21/21 07:13 Chloride 99 mmol/L (98-107 ) 07/21/21 07:13 Carbon Dioxide 23 mmol/L (22-29) 07/21/21 07:13 Anion Gap 17.8 (5-19) 07/21/21 07:13 BUN 8 mg/dL (6-20) 07/21/21 07:13 Creatinine 0.8 mg/dL (0.7-1. 2) 07/21/21 07:13 GFR Calculation 101.9 mL/min (90- 130) 07/21/21 07:13 Glucose 130 mg/dL (65-115 ) H 07/21/21 07:13 Calculated Osmolal ity 282 mOsm/kg (285- 295) L 07/21/21 07:13 Calcium 10.2 mg/dL (8.5-1 0.5) 07/21/21 07:13 Total Bilirubin 0.4 mg/dL (0.15-1 .2) 07/21/21 07:13 AST 25 U/L (0-40) 07/21/21 07:13 ALT 25 U/L (0-41) 07/21/21 07:13 Alkaline Phosphata se 129 IU/L (40-130) 07/21/21 07:13 Total Protein 6.4 g/dL (6.6-8.7 ) L 07/21/21 07:13 Albumin 3.3 g/dL (3.5-5.2 ) L 07/21/21 07:13 Globulin 3.1 g/dL (1.3-4.6 ) 07/21/21 07:13 TSH 2.69 uIU/mL (0.27 -4.20) 07/20/21 05:45 Urine Color Yellow (Yellow) 07/20/21 22:40 Urine Appearance Clear (CLEAR) 07/20/21 22:40 Urine pH 7 (5-7) 07/20/21 22:40 Ur Specific Gravit y 1.010 (1.005-1.0 30) 07/20/21 22:40 Urine Protein Neg (Negative) 07/20/21 22:40 Urine Glucose (UA) Norm (Normal) 07/20/21 22:40 Urine Ketones Negative (Negati ve) 07/20/21 22:40 Urine Blood Neg (Negative) 07/20/21 22:40 Urine Nitrate Negative (Negati ve) 07/20/21 22:40 Urine Bilirubin Neg (Negative) 07/20/21 22:40 Urine Urobilinogen Norm mg/dL (Negat melody) 07/20/21 22:40 Ur Leukocyte Annemarie ase Negative (Negati ve) 07/20/21 22:40 Urine RBC 0-4 /hpf (0-2) H 07/20/21 22:40 Urine WBC 0-4 /hpf (0-5) H 07/20/21 22:40 Ur Squamous Epith Cells 0-4 /hpf (0-5) H 07/20/21 22:40 Amorphous Sediment Not Reportable 07/20/21 22:40 Urine Bacteria Trace /hpf (NONE) 07/20/21 22:40 Hyaline Casts 5-10 /lpf H 07/17/21 07:34 Urine Mucus Trace /hpf 07/20/21 22:40 Urine Opiates Scre en Negative ng/mL (N egative) 07/17/21 07:34 Ur Barbiturates Sc reen Negative ng/mL (N egative) 07/17/21 07:34 Ur Phencyclidine S crn Negative ng/mL (N egative) 07/17/21 07:34 Ur Amphetamines Sc reen Positive ng/mL (N egative) H 07/17/21 07:34 U Benzodiazepines Scrn Negative ng/mL (N egative) 07/17/21 07:34 Urine Cocaine Scre en Negative ng/mL (N egative) 07/17/21 07:34 U Marijuana (THC) Screen Negative ng/mL (N egative) 07/17/21 07:34 Hepatitis A IgM Ab TNP 07/20/21 13:21 Hep Bs Antigen Non-reactive (No nreactive) 07/20/21 13:21 Hep B Core IgM Ab Non-reactive (No nreactive) 07/20/21 13:21 Hepatitis C Antibo dy Non-reactive (No nreactive) 07/20/21 13:21 HIV 1&2 Ab & HIV 1 Ag Non-reactive (No n-Reactiv) 07/20/21 13:21 HIV 1&2 Antibody Non-reactive (No n-Reactiv) 07/20/21 13:21 Vitals: Last Vital Signs Temp 98.5 F 07/21/21 06:00 Pulse 95 07/21/21 06:00 Resp 17 07/21/21 06:00 BP 137/95 07/21/21 06:00 Pulse Ox 97 07/21/21 06:00 Discharge Plan Discharge Patient Disposition: Home Condition: Stable Prescriptions: New benztropine 1 mg Tablet 1 mg PO BEDTIME PRN (Reason: Mild Extrapyramidal symptoms) 30 Days Qty: 30 1RF Continued baclofen 20 mg tablet 20 mg PO TID 0RF pantoprazole 40 mg tablet,delayed release (DR/EC) 40 mg PO DAILY 0RF Discharge Orders: Discharge Order (Routine); Ordered 07/21/21 Ordered By: Constantine Dennison Referrals: [facility]therapy [Other] Brianna De La Cruz PMHNP [Staff Physician] - Nishant Reynoso NP [Primary Care Provider] - 07/29/21 10:30 am Discharge Diet: Regular Discharge Activity: Resume usual activity Patient Instructions: Opioid Safety Discharge Attestations NPU Time Spent in Discharge Care*: greater than 30 min Specific Discharge Activities: Specific discharge activities: educating patient, discussing with telephonic nurse case manager/social workers/dc planners, documenting/other paperwork and evaluating patient/reviewing data Status at Discharge: Cognitive status at discharge: cognitively intact , Behavioral status at discharge: cooperative , Coding Level of Care Code Acute [facility] DC note Diagnoses Lethargy R53.83 Elevated white blood cell count D72.829 Transaminitis R74.01
[2021-07-21 13:36] VITALS: BP 137/95; PULSE 95; RESP 17; TEMP 36.9; O2SAT 97
--- NOTE | 2021-07-21 14:09 | PC.NURSE ---
[employer] HAS DETERMINED PT IS STABLE TO DISCHARGE. PT'S MOTHER IS PICKING PT UP. MEDICATIONS SENT TO [facility]. PT AWARE OF FOLLOW UP APPOINTMENTS AND VERBALIZES UNDERSTANDING OF INFORMATION. DISCHARGE PACKET GIVEN TO PT. ALL PERSONAL BELONGINGS RETURNED TO PT AT DISCHARGE.
== END 2021-07-21 14:30 | disposition home or self-care (01) | DRG 885 ==
LOC: ER 10:48 → NP 10:55
PROVIDERS: Emergency Medicine; Internal Medicine; Admitting Provider Psychiatry & Neurology Psychiatry; Emergency Provider Emergency Medicine; PCP Nurse Practitioner Family; Visit Provider Psychiatry & Neurology Psychiatry
DX: F31.62 Bipolar disorder, current episode mixed, moderate (principal); F15.20 Other stimulant dependence, uncomplicated; R53.83 Other fatigue; D72.829 Elevated white blood cell count, unspecified; R74.01 Elevation of levels of liver transaminase levels; F17.200 Nicotine dependence, unspecified, uncomplicated; F12.20 Cannabis dependence, uncomplicated; F41.1 Generalized anxiety disorder
CPT/HCPCS: 36415; 70450; 80053; 80074; 80306; 81001; 84443; 85025; 87806; 96361; 96372; 96374; 97165; 99285; J0515; J2060; J7030; Q0163

== ENCOUNTER → 2021-07-26 07:25 | Outpatient (BNVA) | payer MEDICAID, SELFPAY | PROVIDERS: PCP Nurse Practitioner Family; Visit Provider Nurse Practitioner | DX: F15.21 Other stimulant dependence, in remission (principal); F31.62 Bipolar disorder, current episode mixed, moderate; F41.1 Generalized anxiety disorder | CPT/HCPCS: 99214 ==

== ENCOUNTER → 2021-08-01 07:34 | Outpatient (BNVA) | payer MEDICAID, SELFPAY | PROVIDERS: PCP Nurse Practitioner Family; Visit Provider Counselor Mental Health | DX: F31.32 Bipolar disorder, current episode depressed, moderate (principal); F41.1 Generalized anxiety disorder | CPT/HCPCS: 90834 ==

== ENCOUNTER → 2021-09-09 07:33 | Outpatient (BNVA) | payer MEDICAID, SELFPAY | PROVIDERS: PCP Nurse Practitioner Family; Visit Provider Counselor Mental Health | DX: F31.32 Bipolar disorder, current episode depressed, moderate (principal); F41.1 Generalized anxiety disorder | CPT/HCPCS: 90832 ==

== ENCOUNTER → 2021-09-23 06:31 | Outpatient (BNVA) | payer MEDICAID, SELFPAY | PROVIDERS: PCP Nurse Practitioner Family; Visit Provider Counselor Mental Health | DX: F31.32 Bipolar disorder, current episode depressed, moderate (principal); F41.1 Generalized anxiety disorder | CPT/HCPCS: 90834 ==

== ENCOUNTER 2022-01-26 12:32 | Outpatient (CLI) | payer MEDICAID, SELFPAY ==
--- NOTE | 2022-01-26 12:44 | XR_ITS ---
WS: [id number] Cervical spine, AP and lateral views, 01/26/2022 Clinical Data: CERVICALGIA Comparison: Cervical spine, 08/12/2020 Findings: No compression fractures are seen. There is an anterior cervical disc fusion C5-C7 with dis c spacers at C5-C6 and C6-C7. There is a anterior osteophyte of C4. There is degenerative disc narrow ing at C4-C5. There is no prevertebral soft tissue swelling. The odontoid is unremarkable. The soft t issues of the neck and the lung apices are normal. XR/XR cervical spine 3V* [id number] Impression: 1. Stable anterior cervical disc fusion C5-C7. 2. Prominent spur of the anterior aspect of C4. 3. Degenerative disc narrowing at C4-C5
--- NOTE | 2022-01-26 12:47 | XR_ITS ---
WS: [id number] Left foot, 3 views, 01/26/2022 Clinical Data: FOOT PAIN, LEFT Comparison: Left foot, 10/11/2017. Findings: No fractures or dislocations are seen. No bone destruction or erosion is noted. The joint spaces and soft tissues are normal. XR/XR foot LT min 3V* [id number] Impression: Negative left foot.
== END 2022-01-26 12:33 | disposition home or self-care (01) ==
LOC: RAD 12:37
PROVIDERS: PCP Nurse Practitioner Family; Visit Provider Nurse Practitioner Family
DX: M54.2 Cervicalgia (principal); M79.672 Pain in left foot; M48.02 Spinal stenosis, cervical region
CPT/HCPCS: 72040; 73630

== ENCOUNTER → 2022-02-16 10:16 | Outpatient (BNVA) | payer MEDICAID, SELFPAY | PROVIDERS: PCP Nurse Practitioner Family; Visit Provider Orthopaedic Surgery | DX: M47.22 Other spondylosis with radiculopathy, cervical region (principal); M48.02 Spinal stenosis, cervical region; M77.9 Enthesopathy, unspecified | CPT/HCPCS: 72050; 99214 ==

== ENCOUNTER 2022-04-18 13:02 | Outpatient (CLI) | payer MEDICAID, SELFPAY ==
--- NOTE | 2022-04-18 13:00 | MR_ITS ---
WS: [id number] MRI CERVICAL SPINE NONCONTRAST HISTORY: pain COMPARISON: 01/07/2020. Technique: Multiplanar, multisequence noncontrast imaging of the cervical spine. Quality of this examination is significantly degraded by artifact from the hardware and motion. Prior anterior cervical fusion from C5 to C7. Interbody fusion at C5-6 and C6-7. Disc spaces are narrowed throughout. No signal abnormality within the cord. Craniocervical junction, C1 and C2 relationship, odontoid process and soft tissues are normal. C2-C3: Normal. C3-C4: Edema RIGHT facet joint. No stenosis. C4-C5: Diffuse annular disc bulging and bilateral facet joint arthritis. Mild central and bilateral f oraminal stenosis. Disc osteophyte complexes and the foramina. C5-C6: Diffuse annular disc bulging and osteophytic ridging and facet arthritis. Mild central and LEF T foraminal stenosis. Moderate RIGHT foraminal stenosis. C6-C7: Diffuse annular disc bulging and osteophytic ridging. Moderate to severe central and bilateral foraminal stenosis. C7-T1: No stenosis. Paraspinal soft tissue are normal. MR/MR cervical spin wo con* [id number] IMPRESSION: 1. Quality of this examination is compromised by hardware artifact and motion. 2. Prior anterior cervical fusion C5-C7 with interbody spacers. 3. Moderate to severe central and bilateral foraminal stenosis at C6-7 due to disc, osteophyte and facet arthritis. 4. Moderate RIGHT foraminal stenosis at C5-6 with mild central and LEFT forami nal stenosis. 5. Mild central and foraminal stenosis at C4-5.
== END 2022-04-18 13:03 | disposition home or self-care (01) ==
LOC: RAD 13:05
PROVIDERS: PCP Nurse Practitioner Family; Visit Provider Orthopaedic Surgery
DX: M48.02 Spinal stenosis, cervical region (principal); M25.78 Osteophyte, vertebrae; M43.22 Fusion of spine, cervical region
CPT/HCPCS: 72141

== ENCOUNTER 2022-05-30 15:47 | Outpatient (CLI) | payer MEDICAID, SELFPAY | END 2022-05-30 15:48 | disposition home or self-care (01) | LOC: SPT 15:47 | PROVIDERS: PCP Nurse Practitioner Family; Visit Provider Physician Assistant | DX: Z46.89 Encounter for fitting and adjustment of other specified devices (principal); M47.22 Other spondylosis with radiculopathy, cervical region | CPT/HCPCS: 97760; 99213; L0172 ==

== ENCOUNTER 2022-06-26 09:45 | Inpatient (IN) | payer MEDICAID, SELFPAY ==
[2022-06-19 09:49] VITALS: BMI 26.6
--- NOTE | 2022-06-19 17:12 | ANES.PREANE2 ---
Pre-Anesthetic Assessment Height/Weight: Height 1.68 m Weight 74.843 kg Preop Diagnosis: Lumbar Stenosis L4/5 Operation Date: 06/26/22 07:00 Proposed Procedures p Anterior Cervical Discectomy & Fusion C4/5; PSF C4-7;decomp:[id number],M47.22,Z98.1(Not Applicable) - DO edgar Hester Spinal Fusion(Not Applicable) - DO edgar Hester Cervical Decompression(Not Applicable) - Bud Mcghee DO Familial anesthetic complications: none Was Beta Saray taken within 24 hours: N/A Was Clonidine taken within 24 hours: N/A Social Tobacco and No alcohol Exam alert, oriented x 3 and regular rate & rhythm Airway Submandibular: within normal limits Cervical ROM: within normal limits Mallampati: Class II Dentition: chipped Pulmonary Chronic Obstructive Pulmonary Disease GI Gastroesophageal Reflux Disease Metabolic Hyperlipidemia Musc/skel Lower Back Pain and Osteoarthritis/DJD Anesthetic Plan ASA status: 3 Anesthesia: General Medications/Allergies Home Medications Medication Instructions Recorded Confirmed Last Taken Type baclofen 20 mg tablet 20 mg PO TID 07/17/21 06/19/22 06/19/22 History pantoprazole 40 mg tablet,delayed 40 mg PO DAILY 07/17/21 06/19/22 06/19/22 History release atorvastatin 40 mg tablet 40 mg PO DAILY 02/16/22 06/19/22 06/19/22 History quetiapine 25 mg tablet 50 mg PO .q hs #60 tabs 02/16/22 06/19/22 Unknown Rx cervical collar #1 ea 05/30/22 05/30/22 Unknown Rx Intraoperative Neuromonitoring #1 ea 06/12/22 Unknown Rx Allergies Allergy/AdvReac Type Severity Reaction Status Date / Time sulfamethoxazole Allergy SWOLLEN Verified 06/19/22 09:50 [From ] TONGUE trimethoprim [From ] Allergy SWOLLEN Verified 06/19/22 09:50 TONGUE PFSH Anesthesia Medical History Bilateral renal stones Bipolar disorder, current episode depressed, moderate Cannabis dependence, uncomplicated Cervical disc disorder with myelopathy of mid-cervical region Cervical radiculopathy Cervical spondylosis Cervical spondylosis with myelopathy Generalized anxiety disorder senior living (current) use of opiate analgesic Long-term use of high-risk medication Neck pain of over 3 months duration Opioid contract exists Other stimulant dependence, in remission Other stimulant dependence, in remission Other stimulant dependence, uncomplicated Pain management contract signed Psychiatric care Surgical History History of cholecystectomy History of knee surgery had MRSA Family History Brother Hypertension Grandfather Hypertension Father No problems noted. Social History Quit status (tobacco): has tried quititng Number of times tried to quit tobacco: 4 Second hand smoke exposure: No Alcohol intake: current Alcohol intake frequency: few times a month Alcohol type: beer Household members: family Marital status: Current occupational status: unemployed and disabled Data Anesthesia Cardiac Studies: Echocardiogram Ultrasound 09/12/19 Holter Monitor 12/21/19
[2022-06-26] VITALS (45 sets, daily range): BP systolic 115–176; BP diastolic 81–112; PULSE 72–100; RESP 12–20; TEMP 36.3–36.9; O2SAT 90–100
--- NOTE | 2022-06-26 06:26 | P.HPUD_ITS ---
Surgery/Procedure H&P Update DATE OF PROCEDURE: June 26, 2022 DATE H&P PERFORMED: 05/30/22 H&P UPDATE INFORMATION: I have reviewed H&P completed within last 30 days, I have examined patient prior to procedure and No changes to prior documentation PREOP DIAGNOSIS: DDD Cervical SPine, pseudoarthrosis cervical spine PLANNED PROCEDURE: Operation Date: 06/26/22 07:00 Proposed Procedures p Anterior Cervical Discectomy & Fusion C4/5; PSF C4- 7;decomp:[id number],M47.22,Z98.1(Not Applicable) - Bud Mcghee, s Spinal Fusion(Not Applicable) - Bud Mcghee, DO s Cervical Decompression(Not Applicable) - Bud Mcghee DO
[2022-06-26] MEDS: sodium chloride 0.9% 1,000 ML 30 ML IV (06:45)
--- NOTE | 2022-06-26 06:48 | ANES.PAUD2 ---
Pre-Anesthetic Update Pre-Anesthetic Assessment: Date of Surgery/Procedure: 06/26/22 Preop Diagnosis: DDD Cervical SPine, pseudoarthrosis cervical spine Proposed Procedure: Operation Date: 06/26/22 07:00 Proposed Procedures p Anterior Cervical Discectomy & Fusion C4/5; PSF C4-7;decomp:[id number],M47.22,Z98.1(Not Applicable) - Budanand Mcghee, DO s Spinal Fusion(Not Applicable) - Bud H Litzy, DO s Cervical Decompression(Not Applicable) - Budanand Mcghee, DO Any changes to Pre-Anesthetic Assessment?: No Last Intake: Intake Last Liquid Date 06/25/22 Last Liquid Time 23:30 Last Solid Date 06/25/22 Last Solid Time 22:00 Vitals: Temperature 97.3 F L 06/26/22 06:30 Temperature Source Temporal Artery S can 06/26/22 06:30 Pulse Rate 99 06/26/22 06:30 Respiratory Rate 20 H 06/26/22 06:30 Blood Pressure 141/103 06/26/22 06:30 Blood Pressure Sally n 115 06/26/22 06:30 Pulse Oximetry 99 06/26/22 06:30 Oxygen Delivery Me thod 06/26/22 06:30 Exam: Pre-Anes Outpt Exam: alert, oriented x 3, clear to auscultation bilaterally and regular rate & rhythm Cardiac Studies: Echocardiogram Ultrasound 09/12/19 Holter Monitor 12/21/19
[2022-06-26] MEDS: ceFAZolin 2,000 MG in sodium chloride 0.9% (plus) 50 ML 100 MG IV ×3 (07:02→22:59)
[2022-06-26 07:15] LABS: Basophils % 0.2 %; Eosinophils # 0.4 10^3/uL (0.0-0.8); Eosinophils % 4.4 %; Hematocrit 39.1 % (42.0-52.0); Hemoglobin 12.6 g/dL (11.7-16.6); Lymphocytes % 35.9 %; Mean Corpuscular HGB Conc 32.2 g/dL (30.0-36.0); Mean Corpuscular Hemoglobin 28.4 pg (28.0-34.0); Mean Corpuscular Volume 88.3 fl (80-94); Mean Platelet Volume 9.9 fL (7.4-10.4); Monocytes # 0.6 10^3/uL (0.2-0.9); Monocytes % 7.1 %; Neutrophils # 4.41 10^3/uL (1.8-7.7); Neutrophils % 52.2 %; Nucleated Red Blood Cells % 0 %; Platelet Count 297 10^3/cmm (130-400); Red Blood Count 4.43 10^6/uL (4.1-5.3); Red Cell Distribution Width 15.2 % (12.1-15.1); White Blood Count 8.5 10^3/uL (4.0-10.0)
[2022-06-26 07:29] LABS: Anion Gap 12.3 (5-19); Blood Urea Nitrogen 17 mg/dL (6-20); Calcium 9.7 mg/dL (8.5-10.5); Carbon Dioxide 28 mmol/L (22-29); Chloride 106 mmol/L (98-107); Creatinine Clr Calc Pharmacy 75.7969; Glomerular Filtration Rate 70.3 mL/min (90-130); Glucose 95 mg/dL (65-115); Osmolality Calculated 295 mOsm/kg (285-295); Potassium 4.3 mmol/L (3.5-5.1); Sodium 142 mmol/L (136-145)
[2022-06-26] MEDS: vancomycin 1,000 MG SDV 1000 MG XX (07:39)
[2022-06-26] MEDS: lidocaine-epi 1% 20 mL INJ INJECTION (07:39)
--- NOTE | 2022-06-26 09:50 | P.OP_ITS ---
Operative Report Date of procedure: June 26, 2022 Pre-op diagnosis: Preop Diagnosis DDD Cervical SPine, pseudoarthrosis cervical spine Post-op diagnosis: same Procedure done: 1. Anterior diskectomy C4/5 2. Insertion of cage C4/5 3. Instrumentation with anterior plate from C4-C5 4. Use of allograft 5. C4-7 posterior fusion 6. C4-7 instrumentation Surgeon: Bud Mcghee Process Improvement Consultant: Eric Rodriguez Process Improvement Consultant: The director medical surgical, Eric Rodriguez, PAC was needed for his expertise under the microscope. He was important and necessary throughout the procedure to complete in a safe and timely manner. He assisted with patient positioning prepping and draping tissue retraction suctioning of the operative field protection of the dural sac and tissue closure Estimated blood loss (mL): 25 Procedure: 1. Anterior diskectomy C4/5 2. Insertion of cage C4/5 3. Instrumentation with anterior plate from C4-C5 4. Use of allograft 5. C4-7 posterior fusion 6. C4-7 instrumentation The patient was taken to the operating room, where he underwent general endotracheal anesthesia without complications. He was then positioned supine on the operating table, and all areas of impingement were well padded. The arms were carefully padded and tucked at his sides. A roll was placed between the shoulder blades.. An x-ray was done to determine the appropriate level for the skin incision. The entire neck was then sterilely prepped and draped in the usual fashion. Neuromonitoring was attached prior to prepping. A transverse skin incision was made and carried down to the platysma muscle. This was then split in line with its fibers. Blunt dissection was carried down medial to the carotid sheath and lateral to the trachea and esophagus until the anterior cervical spine was visualized. A needle was placed into a disc and an x-ray was done to determine its location. The longus colli muscles were then elevated bilaterally with the electrocautery unit. Self-retaining retractors were placed deep to the longus colli muscle. Attention was brought to the C4/5 level that was confirmed on x-ray. The microscope was then brought in. A radical anterior discectomies were performed at C4/5. This included complete removal of the anterior annulus, nucleus, and posterior annulus. The posterior longitudinal ligament was removed as were the posterior osteophytes. Foraminotomies were then accomplished bilaterally. This was done using a high speed gurdeep, kerrison rongeurs and curretes Once all of this was accomplished, the curved currette was used to check for any residual compression. The central canal was wide open as were the foramen. A high-speed bur was used to remove the cartilaginous endplates above and below the interspace. Bleeding cancellous bone was exposed. The disc space were m easured and appropriate size cage were placed sterilely onto the field. Allograft graft was packed into the cages. The cage was then placed and there was good juxtaposition against the bleeding decorticated surfaces and good distraction of each interspace. The screws were then placed up through the cage into the C4 body and down into the C5 body. The screws had excellent purchase. Following a final copious irrigation, there was good hemostasis and no dural leaks. The carotid pulse was strong. The wounds were then closed in layers using 2-0 Vicryl suture for the platysma muscle, 2-0 Vicryl suture for the subcutaneous tissue, and 4-0 monocryl suture in a subcuticular skin closure. Glue was placed followed by application of a sterile dressing. The drain was hooked to bulb suction. A soft collar was applied. Patient was then flipped into the prone position. Patient was then prepped and draped normal sterile fashion. Skin incision made over the posterior aspect of the cervical spine. A subperiosteal dissection was made at the lateral masses of C4 down to C7. Retractors were placed. Next a bur was used to start aeroplane pilot hole then a drill was used to drill the screw passage in the lateral mass. Pedicle feeler was then used and then a 14 mm screw was placed. This process was done bilaterally at C4 C5-C6-C7 once all the screws were placed. Then attention was brought to placing the josh. The josh was placed into the caps of the t[place]ips of the screws. Caps were then placed and torqued down into position. Wounds were then irrigated. The lamina and lateral masses were decorticated using high-speed bur. OsteoMed bone graft was then packed into the gutters and then over the lamina which was decorticated in order to provide for the fusion. This was done from C4 down to C7. The deep drain was placed and wound was closed in a layered fashion with 0 Vicryl 2-0 Vicryl and Monocryl suture. Sterile dressings were applied and patient was transferred to the PACU in stable condition. T
--- NOTE | 2022-06-26 10:22 | XR_ITS ---
WS: [id number] C-arm fluoroscopy of the cervical spine, 06/26/2022 Clinical Data: OR PICS Comparison: Cervical spine, 02/16/2022 Findings: Dr. Mcghee performed an anterior cervical disc fusion at C4-C5. XR/XR cervical spine 1ort [id number] Impression: New anterior cervical disc fusion at C4-C5.
[2022-06-26 11:49] LABS: Glucose Point of Care 116 mg/dL (70-110)
[2022-06-26 12:05] LABS: ABG PCO2 58.6 mmHg (35-45); ABG PH Result 7.26 (7.35-7.45); Arterial Blood Gas Hematocrit 37.6 % (42-52); Base Excess ABG -1.8 mmol/L (-2.0-2.0); Blood Gas Operator Identificat GD; Blood Gas Sample Site Brachial, left; Blood Gas Sample Type Arterial; Carboxyhemoglobin 1.4 %THgb (0.4-20.1); HCO3 ABG 26.2 mmol/L (22-26); HGB O2 Sat 97.3 % (95-100); Ionized Calcium Level - ABG 1.3 mmol/L (1.1-1.4); Methemoglobin 1.3 % (0.4-1.5); Oxygen Device SIMPLE MASK; Potassium Level - ABG 4.3 mmol/L (3.5-5.0); Total Hemoglobin 12.3 g/dL (14-18)
[2022-06-26 12:36] LABS: Hematocrit 37.6 % (42.0-52.0); Hemoglobin 11.9 g/dL (11.7-16.6); Mean Corpuscular HGB Conc 31.6 g/dL (30.0-36.0); Mean Corpuscular Hemoglobin 28.1 pg (28.0-34.0); Mean Corpuscular Volume 88.9 fl (80-94); Mean Platelet Volume 9.9 fL (7.4-10.4); Platelet Count 264 10^3/cmm (130-400); Red Blood Count 4.23 10^6/uL (4.1-5.3); Red Cell Distribution Width 15.4 % (12.1-15.1); White Blood Count 10.9 10^3/uL (4.0-10.0)
[2022-06-26 12:52] LABS: ABG PH Result 7.33 (7.35-7.45); Alveolar-Arterial Oxygen Gradi 3.4 mmHg (5-10); Arterial Blood Gas Hematocrit 37.5 % (42-52); Base Excess ABG -0.8 mmol/L (-2.0-2.0); Blood Gas Operator Identificat GD; Blood Gas Sample Site Brachial, left; Blood Gas Sample Type Arterial; Carboxyhemoglobin 1.4 %THgb (0.4-20.1); HCO3 ABG 25.7 mmol/L (22-26); HGB O2 Sat 90.4 % (95-100); Ionized Calcium Level - ABG 1.3 mmol/L (1.1-1.4); Methemoglobin 0.7 % (0.4-1.5); Oxygen Saturation ABG 92.3; PO2 ABG 65.4 mmHg (80.0-100.0); Potassium Level - ABG 4.4 mmol/L (3.5-5.0); Total Hemoglobin 12.2 g/dL (14-18)
[2022-06-26 12:53] LABS: Oxygen Device ROOM AIR
[2022-06-26 12:55] LABS: Absolute Segmented Neutrophil 9.9 10/cmm (1.6-7.1); Band Neutrophils Absolute 0.2 10^3/cmm (0.0-1.2); Eosinophils 0 %; Lymphocytes 7 %; Lymphocytes Absolute 0.8 10^3/cmm (1.2-3.4); Segmented Neutrophils 91 %; Total Cells Counted 100 (0-100)
[2022-06-26 12:56] LABS: Absolute Neutrophil 10.1 10^3/cmm (1.4-6.5); Platelet Estimate Normal (Normal)
--- NOTE | 2022-06-26 12:59 | P.CONIM_ITS ---
Providers/Reason For Consult Consulting Physician/Specialty*: Frase/Hosptialist Reason for Consult*: Not waking up after neck surgery Requesting Physician: Dr Alice Emerson Attending Physician: Bud Mcghee DO Primary Care Provider: Nishant Reynoso NP History of Present Illness History of Present Illness Vivek Corral is a 51 year old male status post anterior discectomy C4/C5, insertion of cage C4/5, instrumentation with anterior plate from C4-C5, use of allograft, C4-C7 posterior fusion, C4-C7 instrumentation by Dr. Mcghee today. He has had previous cervical fusion in 2019 and a recent MRI identified pseudoarthrosis and a broken screw at C5. He was complaining of pain rated at a 5 out of 10 at most recent spine surgery clinic visit with neck and bilateral arm pain, right greater than left, traversing to the shoulders. Pain had been constant leading to surgery today. Postoperatively he has not woken up after monitoring by anesthesia for a couple of hours. Hospitalist were consulted by anesthesia for assistance because of this. I am not able to get any information from him. He does not awaken though with examination will start to move around. Vital signs are stable. His mom and his girlfriend are in the room. History was reviewed with them. They indicate that he has not slept for probably 2 days staying up at the computer. They do not recall him ever having a similar experience post anesthesia of not waking up in the past. His last surgery was a partial parathyroidectomy done at [facility] in February 2021. After that surgery his mother describes him being crazy after surgery. She says that all the way home from [facility] he was very restless moving around in the car and not making a lot of sense or following their instructions. By the time they got home however he was back to his usual self and did okay after that. He does have headaches frequently and has been seen by Dr. Powell for chronic migraines in the past. Review of clinic records indicates that he has had acute gout recently. He has been recommended to take Tylenol and Motrin for pain in addition to as needed baclofen for muscle spasms. He has used cannabis and methamphetamine in the past but no recent use nor other illicit substances. He had been prescribed narcotics in the past but no recent prescriptions. Review of perioperative notes indicate that he received the following medications: Propofol Midazolam 2 mg Succinylcholine Fentanyl 100 mcg Dilaudid a total of 2 mg in 3 different doses Ketamine a total of 100 mg and 3 different doses Juice 100 mcg at a time when his blood pressure was 80/50 (1 occurrence of hypotension) Lidocaine 2% 80 mg Decadron 12 mg Benadryl 12.5 mg Acetaminophen 1 g Ancef 2 g prior to incision Neostigmine 3 mg Glycopyrrolate 0.4 mg Zofran 4 mg 1600 mL crystalloid Narcan 40 mcg at 10:25 AM without significant change in mental status EBL 100 mL Urine output 100 mL Looks like he was extubated around 10:15 AM Review of Systems General: Reports: ROS unobtainable due to medical condition and ROS unobt ainable due to mental status Medications/Allergies Home Medications Medication Instructions Recorded Confirmed Last Taken Type baclofen 20 mg tablet 20 mg PO TID 07/17/21 06/19/22 06/19/22 History pantoprazole 40 mg tablet,delayed 40 mg PO DAILY 07/17/21 06/26/22 06/25/22 History release atorvastatin 40 mg tablet 40 mg PO DAILY 02/16/22 06/26/22 06/25/22 History cervical collar #1 ea 05/30/22 05/30/22 Unknown Rx Intraoperative Neuromonitoring #1 ea 06/12/22 Unknown Rx ramipril 1.25 mg capsule 1.25 mg PO DAILY 06/26/22 06/26/22 06/25/22 History Allergies Allergy/AdvReac Type Severity Reaction Status Date / Time sulfamethoxazole Allergy SWOLLEN Verified 06/19/22 09:50 [From ] TONGUE trimethoprim [From ] Allergy SWOLLEN Verified 06/19/22 09:50 TONGUE Current Medications Generic Name Dose Route Start Last Admin Trade Name Freq PRN Reason Stop Dose Admin Sodium Chloride 1,000 mls @ 30 mls/hr 06/26/22 06:15 06/26/22 06:45 Sodium Chloride 0.9% IV 06/27/22 06:14 30 mls/hr .Q24H JUNIOR Administration PFSH Acute PFSH: Medical History (Updated 06/26/22 @ 16:06 by Sonam Barnes MD) B12 deficiency 09/2019 Bilateral renal stones Has seen Dr Bhatti in past, conservative managment Bipolar disorder Bleeding per rectum Had anoscope done by Dr Garcia 08/30/2020 with no fistulae, sinuses, induration, abscess formation or fissures = normal findings Cannabis dependence, uncomplicated history, unknown if still using as of 06/26/2022 Carpal tunnel syndrome, left upper limb by nerve conduction study performed 05/2019, has not had surgery as of 06/26/2022 Cervical disc disease With cervical radiculopathy, spondylosis, spondylosis with myelopathy Chronic migraine Depression Generalized anxiety disorder GERD (gastroesophageal reflux disease) Gout History of electroencephalogram 11/04/20 This was a normal routine EEG, awake and drowsy and asleep, with no behavioral or electrographic epileptiform activity. This patient was excessively sleepy and was not sleep deprived. Consider a sleep disorder if clinically appropriate. History of Holter monitoring 09/2019 baseline sinus tachycardia with heart rate of 135 bpm, no pauses or bradycardia, diminished heart rate variability 12/2019 baseline sinus rhythm at 94 bpm, symptomatic sinus tachycardia with heart rate 72-126 bpm Hyperlipidemia Hyperparathyroidism s/p parathyroidectomy Hypertension Other stimulant dependence, in remission prior methamphetamine use Prediabetes Psychiatric care [facility] fever Surgical History (Updated 06/26/22 @ 15:39 by Sonam Barnes MD) History of cholecystectomy History of colonoscopy 2015 History of esophagogastroduodenoscopy (EGD) 2016 History of knee surgery Left knee arthroscopy 08/[address] Campbell, had MRSA History of lumbar laminectomy 09/01/2020 Dr Mcghee L4/5 with bilateral partial facetectomy History of neck surgery 03/24/2020 Dr Mcghee Anterior discectomy with insertion of cage/instrumentation/use of allograft and anterior plate at C5/6 & C6/7 History of parathyroidectomy partial, performed by Dr Henderson, never followed-up after surgery S/P extracorporeal shock wave therapy Status post cervical discectomy 06/26/2022 Dr Mcghee anterior cervical discectomy C4/C5 with insertion of cage, instrumentation with anterior plate C4-C5, with C4-C7 posterior fusion and instrumentation, use of allograft Family History (Updated 06/26/22 @ 14:26 by Sonam Barnes MD) Brother Hypertension Valvular heart disease Grandfather Hypertension History of open heart surgery Father History of open heart surgery Social History (Updated 06/26/22 @ 14:28 by Sonam Barnes MD) Smoking and tobacco status: current every day smoker cigarettes Years cigarettes smoked: 35 Alcohol intake: current Alcohol intake frequency: few times a week Alcohol type: beer Substance/Drug Use: former Household members: other Details: lives with mother who is a former [employer] nurse Marital status: Current occupational status: unemployed and disabled Other [facility] information: Supplemental [facility] Information: Review of prior available information from our facility indicates psychiatric history with anxiety, depression, bipolar, ADHD mentioned at various times. He has had prior episodes of acute psychosis requiring psychiatric hospitalization but he also has had polysubstance use at times including methamphetamine, THC, prescribed narcotics. From primary care records it looks like he has a history of depression and anxiety though is not on any medications for either. Primary care records indicate he is followed at [facility]. He has had issues with chronic pain for many years including neck, back, arms, migraines. I am unclear at this point in time what his baseline psychiatric diagnosis is or is not versus effect of prior polysubstance use. Vitals/I&O/Wt Last Vital Signs Temp 97.4 F L 06/26/22 10:48 Pulse 94 06/26/22 12:16 Resp 16 06/26/22 12:16 BP 134/94 06/26/22 12:16 Pulse Ox 92 06/26/22 12:16 O2 Del Method 06/26/22 12:16 O2 Flow Rate 8 06/26/22 11:50 06/25/22 06/26/22 06/26/22 22:59 06:59 14:59 Intake Total 650 / 650 Output Total 200 / 200 Balance 450 / 450 Physical Exam Narrative: Patient will move around with physical stimuli but is not awake or alert, does not respond to voice. Normocephalic. Neck is in cervical collar. Visible dressings are clean dry and intact. Drain is in place. Pupils are 2 mm and equal bilaterally. Corneal reflexes are intact. He is maintaining his airway. Mucous membranes are moist. Lungs are clear to auscultation bilaterally without any rales rhonchi or wheezes noted. Cardiovascular exam reveals a regular rate and rhythm without any murmurs gallops or rubs. Pulses are 2+ x4. Abdomen is soft, nondistended, no obvious tenderness to palpation with positive bowel sounds. Normal external genitalia with Moncada catheter in place with clear faintly yellow urine. Extremities without any pitting edema. DTRs are equal x4. Toes are downgoing. He has some cuts on his feet with some dried blood that were cleaned off. Skin is cracked around heels and first MTP bilaterally. He has some other minor sores. Skin is pink and dry otherwise. No involuntary movements. When touched he will move around and moves both upper extremities and both lower extremities similarly with grossly equal strength bilaterally. Urinary Catheter Management: Moncada: Cath Placed During This Visit: yes Urinary Catheter Date of Insertion: 06/26/22 Urinary Catheter Time of Insertion: 07:20 Data 06/26/22 12:20 06/26/22 06:50 Other Labs: Radiology Impressions Cervical Spine X-Ray 06/26/22 10:22 Impression: New anterior cervical disc fusion at C4-C5. Laboratory Results WBC 10.9 10^3/uL (4.0-10.0) H 06/26/22 12:20 RBC 4.23 10^6/uL (4.1-5.3) 06/26/22 12:20 Hgb 11.9 g/dL (11.7-16.6) 06/26/22 12:20 Hct 37.6 % (42.0-52.0) L 06/26/22 12:20 MCV 88.9 fl (80-94) 06/26/22 12:20 MCH 28.1 pg (28.0-34.0) 06/26/22 12:20 MCHC 31.6 g/dL (30.0-36.0) 06/26/22 12:20 RDW 15.4 % (12.1-15.1) H 06/26/22 12:20 Plt Count 264 10^3/cmm (130-400) 06/26/22 12:20 MPV 9.9 fL (7.4-10.4) 06/26/22 12:20 Neut % (Auto) 52.2 % 06/26/22 06:50 Lymph % (Auto) 35.9 % 06/26/22 06:50 [place] % (Auto) 7.1 % 06/26/22 06:50 Eos % (Auto) 4.4 % 06/26/22 06:50 Baso % (Auto) 0.2 % 06/26/22 06:50 Neut # (Auto) 4.41 10^3/uL (1.8-7.7) 06/26/22 06:50 Lymph # (Auto) 3.0 10^3/uL (0.8-4.8) 06/26/22 06:50 [place] # (Auto) 0.6 10^3/uL (0.2-0.9) 06/26/22 06:50 Eos # (Auto) 0.4 10^3/uL (0.0-0.8) 06/26/22 06:50 Baso # (Auto) 0.0 10^3/uL (0.0-0.1) 06/26/22 06:50 Nucleated RBC % (auto) 0 % 06/26/22 06:50 Total Counted 100 (0-100) 06/26/22 12:20 Atypical Lymphs % 0.0 % (0-5) 06/26/22 12:20 Absolute Neutrophils 10.1 10^3/cmm (1.4-6.5) H 06/26/22 12:20 Segmented Neutrophils 91 % 06/26/22 12:20 Abs Segm Neuts (Man) 9.9 10/cmm (1.6-7.1) H 06/26/22 12:20 Band Neutrophils 2.0 % 06/26/22 12:20 Abs Band Neuts (Man) 0.2 10^3/cmm (0.0-1.2) 06/26/22 12:20 Absolute Lymphocytes 0.8 10^3/cmm (1.2-3.4) L 06/26/22 12:20 Lymphocytes (Manual) 7 % 06/26/22 12:20 Monocytes (Manual) 0.0 % 06/26/22 12:20 Absolute Monocytes 0.0 10^3/cmm (0.1-0.6) L 06/26/22 12:20 Eosinophils (Manual) 0 % 06/26/22 12:20 Absolute Eosinophils 0.0 10^3/cmm (0.0-0.7) 06/26/22 12:20 Basophils (Manual) 0.0 % 06/26/22 12:20 Absolute Basophils 0.0 10^3/cmm (0.0-0.2) 06/26/22 12:20 Nucleated RBCs # 0.0 /100WBC 06/26/22 06:50 Platelet Estimate Normal (Normal) 06/26/22 12:20 Specimen Type Arterial 06/26/22 12:35 Sample Site Brachial, left 06/26/22 12:35 ABG pH 7.33 (7.35-7.45) L 06/26/22 12:35 ABG pCO2 49.0 mmHg (35-45) H 06/26/22 12:35 ABG pO2 65.4 mmHg (80.0-100.0) L 06/26/22 12:35 ABG HCO3 25.7 mmol/L (22-26) 06/26/22 12:35 ABG O2 Saturation 92.3 06/26/22 12:35 ABG Base Excess -0.8 mmol/L (-2.0-2.0) 06/26/22 12:35 Ignacio Test N/a 06/26/22 12:35 A-a O2 Gradient 3.4 mmHg (5-10) L 06/26/22 12:35 Hematocrit 37.5 % (42-52) L 06/26/22 12:35 Hgb O2 Saturation 90.4 % (95-100) L 06/26/22 12:35 Carboxyhemoglobin 1.4 %THgb (0.4-20.1) 06/26/22 12:35 Methemoglobin 0.7 % (0.4-1.5) 06/26/22 12:35 Total Hemoglobin 12.2 g/dL (14-18) L 06/26/22 12:35 Sodium 143.0 mmol/L (131-143) 06/26/22 12:35 Potassium 4.4 mmol/L (3.5-5.0) 06/26/22 12:35 Glucose 130.0 mg/dL (70-115) H 06/26/22 12:35 Ionized Calcium 1.3 mmol/L (1.1-1.4) 06/26/22 12:35 O2 Delivery Device Room air 06/26/22 12:35 O2 Liters/Min 7.0 % 06/26/22 11:50 Financial Retirement Plan Specialist ID Gd 06/26/22 12:35 Sodium 142 mmol/L (136-145) 06/26/22 06:50 Potassium 4.3 mmol/L (3.5-5.1) 06/26/22 06:50 Chloride 106 mmol/L (98-107) 06/26/22 06:50 Carbon Dioxide 28 mmol/L (22-29) 06/26/22 06:50 Anion Gap 12.3 (5-19) 06/26/22 06:50 BUN 17 mg/dL (6-20) 06/26/22 06:50 Creatinine 1.1 mg/dL (0.7-1.2) 06/26/22 06:50 GFR Calculation 70.3 mL/min (90-130) L 06/26/22 06:50 Glucose 95 mg/dL (65-115) 06/26/22 06:50 POC Glucose 116 mg/dL (70-110) H 06/26/22 11:46 Calculated Osmolality 295 mOsm/kg (285-295) 06/26/22 06:50 Calcium 9.7 mg/dL (8.5-10.5) 06/26/22 06:50 Blood Type O Positive 06/26/22 06:50 Rho(D) Type Positive 06/26/22 06:50 Antibody Screen Negative 06/26/22 06:50 A&P Assessment and plan (1) Acute encephalopathy: Postoperatively not waking up. Has some respiratory acidosis on post-extubation ABG along with hyperoxygenation. While this may be a contributor I do not think it is the entire picture. Review of records shows that he has had several episodes of excessive sleepiness documented in the past during a prior hospitalization as well as an EEG. Etiology of the excessive sleepiness has not been elucidated that I have been able to find in available records. No recent illicit substance use according to family nor available information from primary care and our records. He has baclofen to take as needed at home but no other sedating medications. By report he has not slept for the past 2 days and does have chronic difficulty sleeping; undiagnosed sleep disturbance such as narcolepsy or sleep apnea or within the differential. Not presently seeing evidence other acute metabolic or infectious etiologies. No outward findings of seizures and has had a previously normal EEG. No arrhythmias noted. Vital signs are stable and maintaining airway currently. Currently feel this may be prolonged effect of anesthesia and other perioperative medications in the setting of prolonged insomnia as reported by family, with transient effect of hyperoxygenation. (2) Status post cervical discectomy: Postop day 0 from anterior cervical discectomy C4/C5 with insertion of cage, instrumentation with anterior plate C4-C5, with C4-C7 posterior fusion and instrumentation, use of allograft, performed by Dr. Mcghee (3) Hyperlipidemia: Type unknown Chronically on atorvastatin 40 mg p.o. daily (4) Hypertension: Type unknown, variable over the years I think somewhat in relation to substance use at various times Chronically on low-dose HARDY inhibitor in the form of ramipril 1.25 mg p.o. daily (5) GERD (gastroesophageal reflux disease): Chronically on Protonix therapy, without esophagitis Has a history of low B12 level found in September 2019, had does not appear to be on any chronic replacement (6) Prediabetes: Diagnosis as per primary care records with current blood sugars slightly elevated. He did receive Decadron perioperatively. (7) Gout: Not on chronic suppressive treatment. Has had treatment for acute gout at least once within the last 6 months per primary care records. (8) Neck pain of over 3 months duration: Has had previous neck surgery in 2019. Followed with Dr. Merino at pain clinic for a while and had RAMÓN treatment that quit working. He had been on narcotics at one point in time for pain control though none recently. Is on chronic as needed baclofen for muscle spasms. (9) History of psychiatric care: Unclear baseline psychiatric diagnosis based on available information. 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 He is not on any chronic psychiatric treatment at this time. Previously identified abnormalities may have been related to substance use in the past. According to family no known current substance use being on smoking and some beer. (10) History of narcotic use: Has used narcotics for pain control in the past, though none for some time. Will need to be cognizant of this as well as prior substance use history in terms of postoperative pain control management to minimize risk of recurrent issues. (11) Nicotine dependence, cigarettes, uncomplicated: Less than a pack a day per family Plan History of B12 deficiency History of partial parathyroidectomy with currently normal calcium/ionized calcium Status post Narcan in PACU without any improvement CT of the head and neck without contrast now Check liver enzymes and ammonia level Follow-up pending urine drug screen EKG Wean oxygen to room air as able If no improvement in the next few hours we will repeat ABG ICU monitoring for now Monitor blood sugars for need to intervene Home atorvastatin, Protonix, HARDY inhibitor and baclofen have been ordered by Dr. Mcghee Will hold oral medications while not awake addressing alternative routes as needed Monitor blood pressures with resumption of HARDY inhibitor; parameters added to order N.p.o. until fully awake Hold/minimize further sedating medications including pain control until fully awake Check baseline uric acid Check B12 level secondary to history of deficiency and not on current treatment Serial neuro exams Supportive care otherwise We will need to monitor closely for recurrent excessive sedation with pain control once awake At risk of developing dependence with postoperative pain control given prior history; will need monitoring and support until off narcotics for pain Moncada catheter is in place and will need to be discontinued via usual postsurgical protocol SCDs for DVT prophylaxis Nicotine patch if needed once awake Recommend close follow-up to primary care provider and behavioral health care provider upon discharge Thank you for consultation We will follow along and address medical needs while patient is here Coding Level of Care Code 75631 High Time for a total of 90 minutes, includes reviewing past or interval history, examining/interviewing patient, placing orders, updating patient/family/other support, discussing plan of care with staff, communicating with other healthcare providers and documenting encounter Diagnoses Acute encephalopathy G93.40 Status post cervical discectomy Z98.890 Hyperlipidemia E78.5 Hypertension I10 GERD (gastroesophageal reflux disease) K21.9 Prediabetes R73.03 Gout M10.9 Neck pain of over 3 months duration M54.2 History of psychiatric care Z92.89 History of narcotic use F11.91 Nicotine dependence, cigarettes, uncomplicated F17.210
--- NOTE | 2022-06-26 14:38 | ANE.PACU2 ---
Inpatient post-anesthesia follow up: Airway intact: Yes Vital signs: Temperature 97.4 F Pulse Rate 95 Respiratory Rate 16 Blood Pressure 138/96 Pulse Oximetry 96 Oxygen Delivery Me thod Nasal Cannula Oxygen Flow Rate 3 Fraction of Inspir ed Oxygen Hydration adequate: Yes Nausea and vomiting: No Pain level: 1 Mental status: Altered Additional Comments: 35 minutes after turning off all anesthetic, patient was holding good tidal volumes and respiratory rate w/ ETCO2 of 45 to 50, but not waking. Patient was extubated and oral airway placed. Narcan 0.4 mg IV had been given already. After almost an hour in PACU, patient was still not following commands. He was hypertensive (160s/100s) with slight tachycadia, which may possibly be Ketamine effect. He was moving all extremities in agitation at times and grimacing with painful stimuli. No eye opening. Began to evaluate for possible causes of delayed emergence, including drug effect (dilaudid, versed, ketamine, residual volatile anesthetic or NMB, possible illicit drug use), metabolic derangement (hypercarbia, hypoglycemia, hypocalcemia, or other electrolyte abnormality, and anemia), Stroke, or seizure. ABG, CBC, Utox obtained revealing respiratory acidosis w/ hyperoxia. O2 source removed for 35 minutes to increase hypoxic drive to breathe. No significant desaturation occurred. A repeat ABG was performed and then O2 was re-applied. The respiratory acidosis resolved, but patient only improved mildly on the clinical scale, now experiencing more aggressive agitation, such as kicking, writhing, moaning and withdrawing from pain. Utox still pending. Consulted Dr. Minor for further management of the patient in the ICU. At this time, other possible causes may be intraoperative stroke (CT head) or postictal state (Patient takes baclofen TID and may be having withdrawal seizures). Case review shows that patient has had similar somnolent issues in the past. Last month he was admitted for inablity to sit still. Psychiatrist evaluated him suggested possibility of extrapyramidal symptoms and both psychiatrist and hospitalist during admission noted extreme somnolence, such that patient was unarousable, limiting performance of ROS/history. CT head was normal at this admission and he tested positive for meth, but said he didn't know why he would test positive for such. On 11/04/20 he had an office visit with Dr. Powell where an EEG was performed, which was otherwise normal. However, of note, Sherry stated that patient was 'excessively drowsy and to consider sleep disorder. CT head from 09/26 was also performed for drowsiness, but was noted to be normal. Upon arrival in ICU, no change in mental status noted. BP and heart rate had long since come down to within range of normal limits by that time.
--- NOTE | 2022-06-26 14:39 | CT_ITS ---
WS: [id number] CT NECK TECHNIQUE: Noncontrast CT of the neck with coronal and sagittal reformatted images. CLINICAL INFORMATION: unresponsive post neck surgery COMPARISON: MRI April 18, 2022 DLP: 1389.[address] scans at [facility] use at least one of these dose optimization techniques: automated e xposure control; mA and/or kV adjustment per patient size (includes targeted exams where dose is matc hed to clinical indication); or iterative reconstruction. FINDINGS: Recent postoperative changes anterior and posterior cervical fusion C4-C7. Interbody fusion grafts at C5-C6 and C6-C7. Hardware appears in good position. Posterior pedicle fixation C4-C7 with interconne cting rods. Spinal canal appears patent. No high-grade central canal stenosis. Mild edema in the supr aglottic larynx from presumed recent intubation. Expected Postoperative changes in the RIGHT neck along the surgical corridor. Airway is patent. No ev idence of soft tissue hematoma. Surgical drain posteriorly. CT/CT neck wo con [id number] IMPRESSION: 1. Expected postoperative changes anterior and posterior cervical fusion C4-C7 . 2. Spinal canal appears patent. 3. Expected mild edema in the supraglottic larynx from presumed recent intubat ion. No high-grade airway stenosis. 4. Postoperative changes in the RIGHT neck and posterior paravertebral soft ti ssues along the surgical corridor
--- NOTE | 2022-06-26 14:39 | CT_ITS ---
WS: [id number] CT HEAD TECHNIQUE: Noncontrast CT of the head obtained from the skullbase to the vertex. CLINICAL INFORMATION: unresponsive post neck surgery COMPARISON: July 17, 2021 DLP: 1389.[address] scans at [facility] use at least one of these dose optimization techniques: automated e xposure control; mA and/or kV adjustment per patient size (includes targeted exams where dose is matc hed to clinical indication); or iterative reconstruction. FINDINGS: No evidence of intracranial hemorrhage or mass effect. Ventricular system and basal cisterns are saavedra nt. No extra-axial fluid collections. No evidence of mass or mass effect. Normal whatley-white different iation. Paranasal sinuses and mastoid air cells are well aerated. .Normal visualized soft tissues. CT/CT head wo con* [id number] IMPRESSION: 1. No evidence of intracranial hemorrhage or mass effect. 2. Normal whatley-white differentiation. 3. No acute intracranial findings.
--- NOTE | 2022-06-26 15:59 | ECG_ITS ---
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 Measurements Intervals [place] Rate: 91 P: -9 PA: 165 QRS: 51 QRSD: 97 T: 30 QT: 402 QTc: 497 Interpretive Statements SINUS RHYTHM Compared to ECG 05/29/2021 16:33:42 Sinus tachycardia no longer present Electronically Signed On 06-27-2022 23:13:29 CDT by Siobhan Gee M.D. [id number]
[2022-06-26] MEDS: lactated ringers 1,000 ML 90 ML IV (16:39)
[2022-06-26 16:50] LABS: Alanine Aminotransferase 7 U/L (0-41); Albumin Level 4.3 g/dL (3.5-5.2); Alkaline Phosphatase 103 U/L (40-130); Aspartate Amino Transferase 15 U/L (0-40); Globulin 2.8 g/dL (1.3-4.6); Total Bilirubin 0.6 mg/dL (0.15-1.2); Total Protein 7.1 g/dL (6.6-8.7)
[2022-06-26] MEDS: docusate sodium 100 mg Capsule PO (17:07)
[2022-06-26] MEDS: HYDROcodone-acetaminophen 5-325 mg Tablet PO ×2 (17:07→23:13)
[2022-06-26 17:13] LABS: Ammonia 22 umol/L (16-60)
[2022-06-26 17:27] LABS: Glucose Point of Care 132 mg/dL (70-110)
--- NOTE | 2022-06-26 18:43 | PC.NURSE ---
1315-Upon arrival to ICU, pt did not respond to commands. Pt repositioned self often while kicking legs and flailing arms. Combative at times. 1500-Pt's mother asked what this nurse was administering for pain medication. Mother informed no medication had been administered nor would be administered until pt was alert enough to indicate he was in pain for safety purposes. No facial grimacing took place to indicated pt was uncomfortable. At that time, pt stated, you had better get some ordered for when I start hurting. No previous communication had taken place. Pt became A & O from that point on. Pleasant. Easily startled and flails. C/O dry mouth and initial blurry vision upon opening eyes. Ice chips offered per order. Pt tolerated well.
[2022-06-26 21:41] LABS: Glucose Point of Care 124 mg/dL (70-110)
[2022-06-27] VITALS (16 sets, daily range): BP systolic 117–153; BP diastolic 69–94; PULSE 65–99; RESP 13–22; TEMP 36.7; O2SAT 91–98
[2022-06-27] MEDS: HYDROcodone-acetaminophen 5-325 mg Tablet PO (03:47)
[2022-06-27] MEDS: lactated ringers 1,000 ML 90 ML IV (03:48)
[2022-06-27 04:52] LABS: Basophils % 0.2 %; Eosinophils % 0.2 %; Hematocrit 37.4 % (42.0-52.0); Hemoglobin 11.8 g/dL (11.7-16.6); Lymphocytes # 1.6 10^3/uL (0.8-4.8); Mean Corpuscular HGB Conc 31.6 g/dL (30.0-36.0); Mean Corpuscular Volume 88.8 fl (80-94); Mean Platelet Volume 10.4 fL (7.4-10.4); Monocytes # 0.8 10^3/uL (0.2-0.9); Monocytes % 6.8 %; Neutrophils # 9.91 10^3/uL (1.8-7.7); Neutrophils % 79.6 %; Nucleated Red Blood Cells % 0 %; Platelet Count 284 10^3/cmm (130-400); Red Blood Count 4.21 10^6/uL (4.1-5.3); White Blood Count 12.4 10^3/uL (4.0-10.0)
[2022-06-27 05:04] LABS: Alanine Aminotransferase 6 U/L (0-41); Albumin Level 3.5 g/dL (3.5-5.2); Alkaline Phosphatase 81 U/L (40-130); Anion Gap 12.7 (5-19); Aspartate Amino Transferase 20 U/L (0-40); Blood Urea Nitrogen 13 mg/dL (6-20); Calcium 9.1 mg/dL (8.5-10.5); Carbon Dioxide 25 mmol/L (22-29); Chloride 106 mmol/L (98-107); Globulin 2.9 g/dL (1.3-4.6); Glomerular Filtration Rate 78.5 mL/min (90-130); Glucose 92 mg/dL (65-115); Magnesium 1.9 mg/dL (1.7-2.3); Osmolality Calculated 290 mOsm/kg (285-295); Potassium 3.7 mmol/L (3.5-5.1); Sodium 140 mmol/L (136-145); Total Bilirubin 0.8 mg/dL (0.15-1.2); Total Protein 6.4 g/dL (6.6-8.7); Uric Acid 6.8 mg/dL (3.4-7.0)
[2022-06-27 06:23] LABS: Vitamin B12 262 pg/mL (232-1245)
[2022-06-27] MEDS: ceFAZolin 2,000 MG in sodium chloride 0.9% (plus) 50 ML 100 MG IV (06:23)
--- NOTE | 2022-06-27 07:40 | PM.PN ---
Subjective Subjective: POD 1 Patient more alert responding appropriately. Has mild neck pain denies any arm pain. Denies any shortness of breath, chest pain, headaches. Vitals/I&O/Wt Last Vital Signs Temp 98.1 F 06/27/22 06:00 Pulse 72 06/27/22 06:00 Resp 14 06/27/22 06:00 BP 146/81 06/27/22 06:00 Pulse Ox 95 06/27/22 06:00 O2 Del Method 06/26/22 16:40 O2 Flow Rate 1 06/26/22 15:00 06/26/22 06/27/22 06/27/22 22:59 06:59 14:59 Intake Total 690 / 1340 1500 / 2840 Output Total 1740 / 1940 1625 / 3565 Balance -1050 / -600 -125 / -725 Physical Exam Narrative: Patient is alert and oriented x3 with a good general appearance normal mood and affect. Nontender with palpation about the incisional site. Incision appears to be clean and dry Hemovac drain removed, Without signs of erythema or drainage. No signs of infection. Good motor strength throughout both upper extremities. Appears to fire in all motor groups with 5/5 strength. Hands are warm good cap refill in all digits. Normal sensation to light touch in all dermatomal areas. Urinary Catheter Management: Moncada: Cath Placed During This Visit: yes Reason for Continuing Indwelling Catheter: Accurate Measurement of Urinary Output in Critically Ill Patients Urinary Catheter Date of Insertion: 06/26/22 Urinary Catheter Time of Insertion: 07:20 Data 06/27/22 03:45 06/27/22 03:45 A&P Assessment and plan (1) Status post cervical spinal fusion: Hemovac drain was discontinued. Discussed with the nurse to discontinue Moncada catheter and downsize dressing if the patient is medically cleared to go home later today. Left physical therapy to work for mobilization. Encourage incentive spirometry for pulmonary toilet. From orthopedic standpoint the patient is able to be discharged home today if medically stable and cleared by the hospitalist team. Return to the office in 1 week's time for wound check. Call if there is problems. Attestations Medical Necessity Statement*: Home today when cleared by the hospitalist team Coding Level of Care Code Acute Code for Chg Fwd Diagnoses Status post cervical spinal fusion Z98.1
[2022-06-27 07:49] LABS: Glucose Point of Care 86 mg/dL (70-110)
[2022-06-27] MEDS: atorvastatin 40 mg Tablet PO (09:09)
[2022-06-27] MEDS: pantoprazole DR 40 mg Tablet PO (09:09)
[2022-06-27] MEDS: docusate sodium 100 mg Capsule PO (09:09)
[2022-06-27] MEDS: lisinopril 5 mg Tablet PO (09:09)
--- NOTE | 2022-06-27 09:46 | PM.PN ---
Subjective Subjective: Patient was seen this morning, he is alert oriented x3, sitting up in a chair, he tells me that he has a sleep disorder that he does not sleep for days, then crashes, he is not exactly sure what it is called, he has not seen a sleep doctor in some time, denies a history of narcolepsy, or cataplexy, or central sleep apnea Vitals/I&O/Wt Last Vital Signs Temp 98.1 F 06/27/22 06:00 Pulse 65 06/27/22 07:56 Resp 15 06/27/22 07:56 BP 146/81 06/27/22 06:00 Pulse Ox 96 06/27/22 07:56 O2 Del Method 06/27/22 07:56 O2 Flow Rate 1 06/26/22 15:00 06/26/22 06/27/22 06/27/22 22:59 06:59 14:59 Intake Total 690 / 1340 1500 / 2840 Output Total 1740 / 1940 1625 / 3565 Balance -1050 / -600 -125 / -725 Physical Exam Const: COMMON NORMALS: no acute distress and patient oriented x3 Neck/C-Spine: OTHER: Cervical collar in place Resp: COMMON NORMALS: normal respiratory effort, No retractions, No use of accessory muscles and clear to auscultation bilaterally AUSCULTATION: clear to auscultation bilaterally Cardio: COMMON NORMALS: regular rate, regular rhythm, S1 normal heart sound present and S2 normal heart sound present RATE: regular rate RHYTHM: regular rhythm HEART SOUNDS: S1 normal heart sound present and S2 normal heart sound present GI: COMMON NORMALS: Normal to inspection, nondistended, normoactive bowel sounds present and non-tender Extremity: COMMON NORMALS: no pedal edema Neuro: COMMON NORMALS: patient oriented x3 Psych: COMMON NORMALS: mental status grossly normal Urinary Catheter Management: Moncada: Cath Placed During This Visit: yes Reason for Continuing Indwelling Catheter: Accurate Measurement of Urinary Output in Critically Ill Patients Urinary Catheter Date of Insertion: 06/26/22 Urinary Catheter Time of Insertion: 07:20 Data 06/27/22 03:45 06/27/22 03:45 A&P Assessment and plan (1) Acute encephalopathy: - Resolved -Okay to discharge from hospitalist -Follow-up with primary care provider, recommend sleep study, follow-up with sleep physician (2) Status post cervical discectomy: Postop day 1 from anterior cervical discectomy C4/C5 with insertion of cage, instrumentation with anterior plate C4-C5, with C4-C7 posterior fusion and instrumentation, use of allograft, performed by Dr. Mcghee (3) Hyperlipidemia: Type unknown Chronically on atorvastatin 40 mg p.o. daily (4) Hypertension: Type unknown, variable over the years I think somewhat in relation to substance use at various times Chronically on low-dose HARDY inhibitor in the form of ramipril 1.25 mg p.o. daily (5) GERD (gastroesophageal reflux disease): Chronically on Protonix therapy, without esophagitis Has a history of low B12 level found in September 2019, had does not appear to be on any chronic replacement (6) Prediabetes: Diagnosis as per primary care records with current blood sugars slightly elevated. He did receive Decadron perioperatively. (7) Gout: Not on chronic suppressive treatment. Has had treatment for acute gout at least once within the last 6 months per primary care records. (8) Neck pain of over 3 months duration: Has had previous neck surgery in 2019. Followed with Dr. Merino at pain clinic for a while and had RAMÓN treatment that quit working. He had been on narcotics at one point in time for pain control though none recently. Is on chronic as needed baclofen for muscle spasms. (9) History of psychiatric care: Unclear baseline psychiatric diagnosis based on available information. 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 He is not on any chronic psychiatric treatment at this time. Previously identified abnormalities may have been related to substance use in the past. According to family no known current substance use being on smoking and some beer. (10) History of narcotic use: Has used narcotics for pain control in the past, though none for some time. Will need to be cognizant of this as well as prior substance use history in terms of postoperative pain control management to minimize risk of recurrent issues. (11) Nicotine dependence, cigarettes, uncomplicated: Less than a pack a day per family Attestations Medical Necessity Statement*: Patient will be discharged today Diagnoses Acute encephalopathy G93.40 Status post cervical discectomy Z98.890 Hyperlipidemia E78.5 Hypertension I10 GERD (gastroesophageal reflux disease) K21.9 Prediabetes R73.03 Gout M10.9 Neck pain of over 3 months duration M54.2 History of psychiatric care Z92.89 History of narcotic use F11.91 Nicotine dependence, cigarettes, uncomplicated F17.210
--- NOTE | 2022-06-27 10:36 | PC.NURSE ---
5904-Dr Mcghee's PA removed drain without incident. Pt tolerated well. 2830-Catheter Removed. Pt tolerated well. 200mls in bag.
[2022-06-27 10:55] LABS: Glucose Point of Care 136 mg/dL (70-110)
--- NOTE | 2022-06-27 13:45 | PC.NURSE ---
Discharge instructions given to patient and family, prescriptions sent to pharmacy. IVs removed. VSS, AAOx4. [place] J collar on and in place. Dressings intact.
--- NOTE | 2022-06-27 14:42 | PC.NURSE ---
Patient and belongings wheeled to private vehicle, driven by mother. No questions.
[2022-06-27 22:18] LABS: Amphetamines Level POSITIVE ng/mL (<500); Barbiturates NEGATIVE ng/mL (<300); Benzodiazepines POSITIVE ng/mL (<100); Cocaine Metabolite NEGATIVE ng/mL (<150); Marijuana Metabolite POSITIVE ng/mL (<20); Methadone Metabolite NEGATIVE ng/mL (<100); Opiates POSITIVE ng/mL (<100); Oxidant NEGATIVE mcg/mL (<200); Phencyclidine NEGATIVE ng/mL (<25); Urine pH 6.7 (4.5-9.0)
== END 2022-06-27 14:20 | disposition home or self-care (01) | DRG 453 ==
LOC: MEDSURG 06-27 06:16 → ICU 06-27 06:16
PROVIDERS: Anesthesiology; Hospitalist; Admitting Provider Orthopaedic Surgery; PCP Nurse Practitioner Family; Visit Provider Orthopaedic Surgery
PROC: 0RB30ZZ Excision of Cervical Vertebral Disc, Open Approach (ICD-10-PCS; CPT 22551; principal; 2022-06-26 07:00)
PROC: 0RG20K1 Fusion of 2 or more Cervical Vertebral Joints with Nonautologous Tissue Substitute, Posterior Approach, Posterior Column, Open Approach (ICD-10-PCS; 2022-06-26 07:00)
PROC: 0RG20K1 Fusion of 2 or more Cervical Vertebral Joints with Nonautologous Tissue Substitute, Posterior Approach, Posterior Column, Open Approach (ICD-10-PCS; CPT 63001; 2022-06-26 07:00)
DX: M47.12 Other spondylosis with myelopathy, cervical region (principal); G92.8 Other toxic encephalopathy; E87.29 Other acidosis; F15.20 Other stimulant dependence, uncomplicated; G93.40 Encephalopathy, unspecified; M47.22 Other spondylosis with radiculopathy, cervical region; F31.9 Bipolar disorder, unspecified; F12.20 Cannabis dependence, uncomplicated; F41.1 Generalized anxiety disorder; Z86.14 Personal history of Methicillin resistant Staphylococcus aureus infection; E89.2 Postprocedural hypoparathyroidism; M10.9 Gout, unspecified; K21.9 Gastro-esophageal reflux disease without esophagitis; G47.419 Narcolepsy without cataplexy; F17.210 Nicotine dependence, cigarettes, uncomplicated; Z98.1 Arthrodesis status; R73.03 Prediabetes; E78.5 Hyperlipidemia, unspecified; I10 Essential (primary) hypertension; T88.59XA Other complications of anesthesia, initial encounter; T41.205A Adverse effect of unspecified general anesthetics, initial encounter; Y83.9 Surgical procedure, unspecified as the cause of abnormal reaction of the patient, or of later complication, without mention of misadventure at the time of the procedure
CPT/HCPCS: 36415; 36416; 36600; 51702; 70450; 70490; 72020; 72040; 76000; 80048; 80051; 80053; 80076; 80307; 82140; 82330; 82607; 82805; 82962; 83735; 84100; 84550; 85007; 85025; 85027; 86850; 86900; 93005; 97110; 97161; C1713; C9359; J0131; J0330; J0690; J1100; J1170; J1200; J2250; J2310; J2405; J2704; J2710; J3010; J3370; J3490; J7030; J7120

== ENCOUNTER → 2022-07-04 10:55 | Outpatient (BNVA) | payer MEDICAID, SELFPAY | PROVIDERS: PCP Nurse Practitioner Family; Visit Provider Orthopaedic Surgery | DX: Z47.89 Encounter for other orthopedic aftercare (principal); Z98.1 Arthrodesis status | CPT/HCPCS: 72040; 99024 ==

== ENCOUNTER → 2022-07-11 10:59 | Outpatient (BNVA) | payer MEDICAID, SELFPAY | PROVIDERS: PCP Nurse Practitioner Family; Visit Provider Orthopaedic Surgery | DX: Z47.89 Encounter for other orthopedic aftercare (principal); Z98.1 Arthrodesis status | CPT/HCPCS: 99024 ==

== ENCOUNTER → 2022-08-10 13:48 | Outpatient (BNVA) | payer MEDICAID, SELFPAY | PROVIDERS: PCP Nurse Practitioner Family; Visit Provider Orthopaedic Surgery | DX: Z98.1 Arthrodesis status (principal); Z47.89 Encounter for other orthopedic aftercare | CPT/HCPCS: 72040; 99024 ==

== ENCOUNTER → 2022-09-12 08:16 | Outpatient (BNVA) | payer MEDICAID, SELFPAY | PROVIDERS: PCP Nurse Practitioner Family; Visit Provider Physician Assistant | DX: Z98.1 Arthrodesis status (principal) | CPT/HCPCS: 72040; 99024 ==

== ENCOUNTER → 2022-10-17 10:50 | Outpatient (BNVA) | payer MEDICAID, SELFPAY | PROVIDERS: PCP Nurse Practitioner Family; Visit Provider Orthopaedic Surgery | DX: Z98.1 Arthrodesis status (principal); M54.2 Cervicalgia | CPT/HCPCS: 72040; 99214 ==

== ENCOUNTER 2022-10-24 16:25 | Outpatient (CLI) | payer MEDICAID, SELFPAY ==
--- NOTE | 2022-10-24 16:30 | CTR_ITS ---
PROCEDURE INFORMATION: Exam: CT Cervical Spine Without Contrast Exam date and time: 10/24/2022 4:53 PM Age: 51 years old Clinical indication: Injury or trauma; Fall; Sprain or strain, cervical ligaments; Prior surgery; Surgery date: 6+ months; Surgery type: Neck x 2; Additional info: Neck pain/fall TECHNIQUE: Imaging protocol: Computed tomography of the cervical spine without contrast. Radiation optimization: All CT scans at this facility use at least one of these dose optimization techniques: automated exposure control; mA and/or kV adjustment per patient size (includes targeted exams where dose is matched to clinical indication); or iterative reconstruction. REPORTING DATA: Count of CT and Cardiac NM exams in prior 12 months: This patient has received 2 known CTs and 0 known cardiac nuclear medicine studies in the 12 months prior to the current study. COMPARISON: 1. CT neck wo con [id number] 06/26/2022 3:07 PM 2. MR cervical spin wo con* [id number] 04/18/2022 1:28 PM RADIATION DOSE METRICS: Total DLP (mGy-cm): 385.97 FINDINGS: Bones/joints: Anterior and posterior spinal fixation hardware extending from C4-C7 with intervertebral disc spacers. The fixation hardware appears intact. The cervical spine demonstrates straightening of the normal lordotic curvature. No spondylolisthesis. The vertebral bodies maintain normal height. No fracture identified. The [place] intervertebral discs maintain normal height. Lungs: Minimal air along the medial margin of the left upper lobe consistent with paraseptal emphysematous changes, as demonstrated on previous CT of the neck. Soft tissues: No prevertebral soft tissue swelling identified. CT/CT cervical spin wo con* [id number] IMPRESSION: No acute fracture or traumatic malalignment identified within the cervical spine.
== END 2022-10-24 16:26 | disposition home or self-care (01) ==
LOC: RAD 16:26
PROVIDERS: PCP Nurse Practitioner Family; Visit Provider Orthopaedic Surgery
DX: Z98.1 Arthrodesis status (principal); M54.2 Cervicalgia; W19.XXXA Unspecified fall, initial encounter
CPT/HCPCS: 72125

== ENCOUNTER 2022-11-11 23:50 | Emergency (ER) | payer MEDICAID, SELFPAY ==
[2022-11-11 23:51] VITALS: BP 169/114; PULSE 111; RESP 18; TEMP 36.6; O2SAT 99; BMI 31.8
--- NOTE | 2022-11-11 23:57 | XRR_ITS ---
PROCEDURE INFORMATION: Exam: XR Chest Exam date and time: 11/12/2022 12:30 AM Age: 51 years old Clinical indication: Chest pressure; Prior surgery; Surgery date: 6+ months; Surgery type: Cervical. Gb; Patient HX: Chest pain with hypertension; Additional info: HTN TECHNIQUE: Imaging protocol: Radiologic exam of the chest. Views: 1 view. COMPARISON: CR XR chest 1V portable [id number] 10/16/2019 6:24 PM FINDINGS: Lungs: Unremarkable. No consolidation. Pleural spaces: Unremarkable. No pleural effusion. No pneumothorax. Heart/Mediastinum: Unremarkable. No cardiomegaly. Bones/joints: Unremarkable. XR/XR chest 1V portable [id number] IMPRESSION: No acute findings.
--- NOTE | 2022-11-11 23:58 | ECG_ITS ---
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 Measurements Intervals [place] Rate: 99 P: 44 W[place]: 164 QRS: -7 QRSD: 92 T: 21 QT: 364 QTc: 467 Interpretive Statements SINUS RHYTHM MINIMAL VOLTAGE CRITERIA FOR LVH, CONSIDER NORMAL VARIANT [MEETS CRITERIA IN ONE OF: R(aVL), S(V1), R(V5), R(V5/V6)+S(V1)] Compared to ECG 06/26/2022 17:05:24 No significant changes Electronically Signed On 11-12-2022 19:49:55 CDT by Siobhan Gee M.D. [id number]
[2022-11-12 00:17] VITALS: RESP 18
[2022-11-12] MEDS: diphenhydrAMINE 50 mg/mL SDV 1mL IVP (00:17)
[2022-11-12] MEDS: morphine 4 mg/mL SDV 1 mL IVP (00:17)
[2022-11-12] MEDS: metoclopramide 5 mg/mL SDV 2 mL 10 MG IVP (00:17)
[2022-11-12 00:20] LABS: Basophils % 0.2 %; Eosinophils # 0.2 10^3/uL (0.0-0.8); Hematocrit 38.4 % (42.0-52.0); Hemoglobin 12.5 g/dL (11.7-16.6); Lymphocytes # 3.3 10^3/uL (0.8-4.8); Lymphocytes % 27.5 %; Mean Corpuscular HGB Conc 32.6 g/dL (30.0-36.0); Mean Corpuscular Hemoglobin 29.2 pg (28.0-34.0); Mean Corpuscular Volume 89.7 fl (80-94); Mean Platelet Volume 10.7 fL (7.4-10.4); Monocytes % 8.2 %; Neutrophils # 7.31 10^3/uL (1.8-7.7); Neutrophils % 60.7 %; Nucleated Red Blood Cells % 0 %; Platelet Count 259 10^3/cmm (130-400); Red Blood Count 4.28 10^6/uL (4.1-5.3); Red Cell Distribution Width 15.8 % (12.1-15.1); White Blood Count 12.1 10^3/uL (4.0-10.0)
--- NOTE | 2022-11-12 00:21 | ED_ITS ---
HPI - Headache General: Chief Complaint: Headache Stated Complaint: headache, blurred vision, high BP Time Seen by Provider: 11/11/22 23:50 Source: patient and EMS Mode of arrival: EMS Limitations: no limitations History of Present Illness: 51-year-old male has a history of chronic neck pain headaches also his Blood pressure states that today he has been having a headache that gradually increased throughout the day states he is also has had high blood pressure he has had some blurred vision with this is normal with his headaches. He denies any fevers or vomiting. Denies any worsening proving factors. This is not the worst headache of his life Associated symptoms: Deny chest pain, fever(s), nausea, rash or vomiting Review of Systems Const: Denies: fever(s), chills, body aches or change in appetite Eyes: Reports: blurry vision; Denies: eye discomfort ENMT: Denies: throat pain or dental pain Card: Denies: chest pain Resp: Denies: dyspnea GI: Denies: abdominal pain, nausea or vomiting Musc: Denies: neck pain or back pain Skin/Breast: Denies: rash Neuro: Reports: headache(s) PFSH ED PFSH: Medical History Acute encephalopathy Anesthesia complication prolonged sedation after anesthesia 06/26/2022 requiring ICU monitoring but no other intervention, not responsive to narcan; took 5-6 hours to wake up after surgery. Only thing identified is he had not slept for several days prior to surgery. B12 deficiency 09/2019 Bilateral renal stones Has seen Dr Bhatti in past, non-obstructive, remote lithotripsy, otherwise monitored for symptoms Bipolar disorder Bleeding per rectum Had anoscope done by Dr Garcia 08/30/2020 with no fistulae, sinuses, induration, abscess formation or fissures = normal findings Cannabis dependence, uncomplicated history, unknown if still using as of 06/26/2022 Carpal tunnel syndrome, left upper limb by nerve conduction study performed 05/2019, has not had surgery as of 06/26/2022 Cervical disc disease With cervical radiculopathy, spondylosis, spondylosis with myelopathy Chronic migraine Depression Generalized anxiety disorder GERD (gastroesophageal reflux disease) Gout History of electroencephalogram 11/04/20 This was a normal routine EEG, awake and drowsy and asleep, with no behavioral or electrographic epileptiform activity. This patient was excessively sleepy and was not sleep deprived. Consider a sleep disorder if clinically appropriate. History of Holter monitoring 09/2019 baseline sinus tachycardia with heart rate of 135 bpm, no pauses or bradycardia, diminished heart rate variability 12/2019 baseline sinus rhythm at 94 bpm, symptomatic sinus tachycardia with heart rate 72-126 bpm History of narcotic use with prior pain treatment contract, not using regular narcotic pain control as of 06/26/2022 History of psychiatric care Hyperlipidemia Hyperparathyroidism s/p partial parathyroidectomy Hypertension Other stimulant dependence, in remission prior methamphetamine use Prediabetes Psychiatric care [place] tick fever Surgical History History of cholecystectomy History of colonoscopy 2015 History of esophagogastroduodenoscopy (EGD) 2015 History of knee surgery Left knee arthroscopy 08/[address] Campbell, had MRSA History of lumbar laminectomy 09/01/2020 Dr Mcghee L4/5 with bilateral partial facetectomy History of neck surgery 03/24/2020 Dr Mcghee Anterior discectomy with insertion of cage/instrum entation/use of allograft and anterior plate at C5/6 & C6/7 History of parathyroidectomy partial, performed by Dr Henderson, never followed-up after surgery S/P extracorporeal shock wave therapy Status post cervical discectomy 06/26/2022 Dr Mcghee anterior cervical discectomy C4/C5 with insertion of cage, instrumentation with anterior plate C4-C5, with C4-C7 posterior fusion and instrumentation, use of allograft Family History Brother Hypertension Valvular heart disease Grandfather Hypertension History of open heart surgery Father History of open heart surgery Social History Smoking and tobacco status: current every day smoker cigarettes Years cigarettes smoked: 35 Alcohol intake: current Alcohol intake frequency: few times a week Alcohol type: beer Substance/Drug Use: former Household members: other Details: lives with mother who is a former [employer] nurse Marital status: Current occupational status: unemployed and disabled Course Vital Signs: Vital signs: Vital Signs Temperature 97.8 F 11/11/22 23:51 Pulse Rate 99 11/12/22 01:19 Respiratory Rate 18 08/06/23 00:17 Blood Pressure 128/82 11/12/22 01:19 Pulse Oximetry 98 11/12/22 01:19 MDM - Headache Medical Decision Making Patient presents here with headaches likely migraine his symptoms have completely resolved after Reglan Benadryl his blood pressure is improved as well he is stable for discharge she is to follow-up with PCP and return if worse he has no signs of stroke or subarachnoid hemorrhage. Medical Records I reviewed the patient's medical records. Lab Data I reviewed the patient's lab results. 11/12/22 00:11 11/12/22 00:11 Radiology Impressions Chest X-Ray 11/11/22 23:57 IMPRESSION: No acute findings. Laboratory Results WBC 12.1 10^3/uL (4.0-10.0) H 11/12/22 00:11 RBC 4.28 10^6/uL (4.1-5.3) 11/12/22 00:11 Hgb 12.5 g/dL (11.7-16.6) 11/12/22 00:11 Hct 38.4 % (42.0-52.0) L 11/12/22 00:11 MCV 89.7 fl (80-94) 11/12/22 00:11 MCH 29.2 pg (28.0-34.0) 11/12/22 00:11 MCHC 32.6 g/dL (30.0-36.0) 11/12/22 00:11 RDW 15.8 % (12.1-15.1) H 11/12/22 00:11 Plt Count 259 10^3/cmm (130-400) 11/12/22 00:11 MPV 10.7 fL (7.4-10.4) H 11/12/22 00:11 Neut % (Auto) 60.7 % 11/12/22 00:11 Lymph % (Auto) 27.5 % 11/12/22 00:11 Emm[place] % (Auto) 8.2 % 11/12/22 00:11 Eos % (Auto) 2.0 % 11/12/22 00:11 Baso % (Auto) 0.2 % 11/12/22 00:11 Neut # (Auto) 7.31 10^3/uL (1.8-7.7) 11/12/22 00:11 Lymph # (Auto) 3.3 10^3/uL (0.8-4.8) 11/12/22 00:11 Emmons # (Auto) 1.0 10^3/uL (0.2-0.9) H 11/12/22 00:11 Eos # (Auto) 0.2 10^3/uL (0.0-0.8) 11/12/22 00:11 Baso # (Auto) 0.0 10^3/uL (0.0-0.1) 11/12/22 00:11 Nucleated RBC % (auto) 0 % 11/12/22 00:11 Nucleated RBCs # 0.0 /100WBC 11/12/22 00:11 Sodium 143 mmol/L (136-145) 11/12/22 00:11 Potassium 3.7 mmol/L (3.5-5.1) 11/12/22 00:11 Chloride 104 mmol/L (98-107) 11/12/22 00:11 Carbon Dioxide 26 mmol/L (22-29) 11/12/22 00:11 Anion Gap 16.7 (5-19) 11/12/22 00:11 BUN 13 mg/dL (6-20) 11/12/22 00:11 Creatinine 1.1 mg/dL (0.7-1.2) 11/12/22 00:11 GFR Calculation 70.3 mL/min (90-130) L 11/12/22 00:11 Glucose 110 mg/dL (65-115) 11/12/22 00:11 Calculated Osmolality 297 mOsm/kg (285-295) H 11/12/22 00:11 Calcium 9.3 mg/dL (8.5-10.5) 11/12/22 00:11 Total Bilirubin 0.3 mg/dL (0.15-1.2) 11/12/22 00:11 AST 14 U/L (0-40) 11/12/22 00:11 ALT 13 U/L (0-41) 11/12/22 00:11 Alkaline Phosphatase 110 U/L (40-130) 11/12/22 00:11 Total Protein 6.7 g/dL (6.6-8.7) 11/12/22 00:11 Albumin 4.1 g/dL (3.5-5.2) 11/12/22 00:11 Globulin 2.6 g/dL (1.3-4.6) 11/12/22 00:11 Urine Opiates Screen Negative ng/mL (Negative) 11/12/22 00:11 Ur Barbiturates Screen Negative ng/mL (Negative) 11/12/22 00:11 Ur Phencyclidine Scrn Negative ng/mL (Negative) 11/12/22 00:11 Ur Amphetamines Screen Negative ng/mL (Negative) 11/12/22 00:11 U Benzodiazepines Scrn Negative ng/mL (Negative) 11/12/22 00:11 Urine Cocaine Screen Negative ng/mL (Negative) 11/12/22 00:11 U Marijuana (THC) Screen Negative ng/mL (Negative) 11/12/22 00:11 EKG Data EKG 1: I personally reviewed and interpreted this EKG as follows: EKG interpretation date: 11/12/22 EKG interpretation time: 00:46 Interpretation: sinus jordan hr [address] or t wave abnormalities qrs 88 qtc 424 Discharge Plan Discharge Patient Disposition: Home Clinical Impression: Headache, Hypertension Condition: Stable Prescriptions: No Action prednisone 20 mg tablet 20 mg PO DAILY Qty: 15 0RF Rx Instructions: 60mg X3 days 40mg X2 days 20mg X 2days hydrocodone-acetaminophen 5-325 mg tablet 1 tab PO Q8H PRN (Reason: pain) 7 Days Qty: 21 0RF hydrocodone-acetaminophen 5-325 mg tablet 1 tab PO Q6H PRN (Reason: Post-op pain) 5 Days Qty: 20 0RF ramipril 1.25 mg capsule 1.25 mg PO DAILY atorvastatin 10 mg tablet 10 mg PO DAILY baclofen 20 mg tablet 20 mg PO TID pantoprazole 40 mg tablet,delayed release (DR/EC) 40 mg PO DAILY Discharge Orders: Discharge ED (Routine); Ordered 11/12/22 Ordered By: Nancy Sandoval Referrals: Nishant Reynoso NP [Primary Care Provider] - 1-3 days Discharge Diet: Advance as tolerated Discharge Activity: Resume usual activity Patient Instructions: General Headache (ED) Coding Level of Care Code ED President Practicing Urologist for Onelg Larry
[2022-11-12 00:29] LABS: Amphetamines Screen Urine Negative (Negative); Barbiturates Screen Urine Negative (Negative); Benzodiazepines Screen Urine Negative (Negative); Cocaine Screen Urine Negative (Negative); Opiate Screen Urine Negative (Negative); PCP Screen Urine Negative (Negative); THC Screen Urine Negative (Negative)
[2022-11-12 00:48] LABS: Alanine Aminotransferase 13 U/L (0-41); Albumin Level 4.1 g/dL (3.5-5.2); Alkaline Phosphatase 110 U/L (40-130); Anion Gap 16.7 (5-19); Aspartate Amino Transferase 14 U/L (0-40); Blood Urea Nitrogen 13 mg/dL (6-20); Calcium 9.3 mg/dL (8.5-10.5); Carbon Dioxide 26 mmol/L (22-29); Chloride 104 mmol/L (98-107); Globulin 2.6 g/dL (1.3-4.6); Glomerular Filtration Rate 70.3 mL/min (90-130); Glucose 110 mg/dL (65-115); Osmolality Calculated 297 mOsm/kg (285-295); Potassium 3.7 mmol/L (3.5-5.1); Sodium 143 mmol/L (136-145); Total Bilirubin 0.3 mg/dL (0.15-1.2); Total Protein 6.7 g/dL (6.6-8.7)
[2022-11-12 01:19] VITALS: BP 128/82; PULSE 99; O2SAT 98
== END 2022-11-12 01:20 | disposition home or self-care (01) ==
PROVIDERS: Emergency Provider Emergency Medicine; PCP Nurse Practitioner Family
DX: R51.9 Headache, unspecified (principal); I10 Essential (primary) hypertension; F17.210 Nicotine dependence, cigarettes, uncomplicated; E78.5 Hyperlipidemia, unspecified
CPT/HCPCS: 71045; 80053; 80306; 85025; 93005; 96374; 96375; 99285; J1200; J2270; J2765

== ENCOUNTER → 2022-11-21 14:23 | Outpatient (BNVA) | payer MEDICAID, SELFPAY | PROVIDERS: PCP Nurse Practitioner Family; Visit Provider Physician Assistant | DX: Z98.1 Arthrodesis status (principal); M54.2 Cervicalgia; W01.0XXD Fall on same level from slipping, tripping and stumbling without subsequent striking against object, subsequent encounter | CPT/HCPCS: 99213 ==

== ENCOUNTER → 2022-12-07 09:49 | Outpatient (BNVA) | payer MEDICAID, SELFPAY | PROVIDERS: PCP Nurse Practitioner Family; Visit Provider Anesthesiology Pain Medicine | DX: M54.16 Radiculopathy, lumbar region (principal); M54.2 Cervicalgia | CPT/HCPCS: 99214 ==

== ENCOUNTER 2022-12-26 12:04 | Outpatient (CLI) | payer MEDICAID, SELFPAY ==
--- NOTE | 2022-12-26 12:11 | CT_ITS ---
WS: [id number] CT ABDOMEN AND PELVIS WITH CONTRAST HISTORY: ABDOMINAL PAIN TECHNIQUE: Imaging performed of the abdomen and pelvis with IV contrast. Two phase imaging of the abd omen. Coronal and sagittal reformats are submitted. All CT scans at [facility] use at least o ne of these dose optimization techniques: automated exposure control; mA and/or kV adjustment per pat ient size (includes targeted exams where dose is matched to clinical indication); or iterative recons truction. IV CONTRAST: Omnipaque 350; 100 mL IV. Oral contrast: Yes. DLP: 1139.46 mGy COMPARISON: 11/01/2020, 09/11/2019 Lower thorax: Lung bases are clear. Heart is normal size. Small hiatal hernia. There is oral contrast within the distal esophagus from reflux disease. Liver/biliary system: Liver is normal size. There are numerous bilateral low-attenuation masses throu ghout the liver. Some of these are too small to characterize. Majority of these are cysts. There is a hemangioma in the LEFT lobe of the liver measuring 2.3 x 2.2 cm. Largest lobulated cyst is in the RI GHT lobe measuring 3.0 x 3.4 cm. No solid mass identified. No bile duct dilatation per Gallbladder: Status post cholecystectomy. Pancreas: Normal size pancreas and pancreatic duct. No adjacent inflammation. Spleen: Normal size. 5 mm subcapsular cyst is stable since 11/01/2020. Adrenal glands: Normal. Right kidney: Normal size kidney. There are nonobstructing renal calculi with the largest measuring 5 mm in the lower pole. Too small to characterize hypodensities in the cortex. No solid mass. Left kidney: Numerous cysts throughout the kidney. The largest measures 4.6 x 4.7 cm. No renal obstru ction. Nonobstructing calcifications. Aorta: Mild atherosclerosis. No aneurysm. Lymphadenopathy: None. Free fluid: None. GI tract: Stomach is markedly distended with oral contrast. No small bowel obstruction. Normal append ix. There is some mild wall thickening involving the cecum and ascending colon. This may be due to un ediat distention and the fecal retention. There is no obstructing lesion. Mild diverticular burden in t he distal colon. No acute diverticulitis. Abdominal wall: Unremarkable abdominal wall. No hernia. Pelvis: No free fluid or adenopathy within the pelvis. Negative urinary bladder. Bones: Unremarkable. IMPRESSION: 1. No ascites or adenopathy. 2. Numerous hepatic masses. These masses are consistent with a combination of cysts and hemangiomas. Very similar as compared to the prior studies from 2019 and 2020. Some of these hypodensities are to o small to characterize. No solid mass. 3. Prior cholecystectomy. 4. Small hiatal hernia and a small amount of oral contrast refluxed into the distal esophagus. 5. Bilateral renal cysts. 6. Bilateral nonobstructing renal calcifications. 7. Normal appendix. 8. Very minimal wall thickening involving the cecum. This may be due to the retained fecal material and limited oral contrast. Cecum can be further evaluated by colonoscopy. 9. Distal colonic diverticulosis without acute diverticulitis.
[2022-12-26] MEDS: iohexol 350 mg/mL 500 mL Btl (per mL) PO (13:50)
[2022-12-26] MEDS: iohexol 350 mg/mL 500 mL Btl (per mL) IV (13:50)
== END 2022-12-26 12:05 | disposition home or self-care (01) ==
PROVIDERS: PCP Nurse Practitioner Family; Visit Provider Family Medicine
DX: R10.9 Unspecified abdominal pain (principal); R16.0 Hepatomegaly, not elsewhere classified; Z90.49 Acquired absence of other specified parts of digestive tract; K44.9 Diaphragmatic hernia without obstruction or gangrene; N28.89 Other specified disorders of kidney and ureter; K57.30 Diverticulosis of large intestine without perforation or abscess without bleeding; N28.1 Cyst of kidney, acquired
CPT/HCPCS: 74177; Q9967

== ENCOUNTER → 2023-01-01 09:40 | Outpatient (BNVA) | payer MEDICAID, SELFPAY | PROVIDERS: PCP Nurse Practitioner Family; Visit Provider Anesthesiology Pain Medicine | DX: M79.18 Myalgia, other site (principal) | CPT/HCPCS: 20553; 99213; J1030; J3490 ==

== ENCOUNTER → 2023-01-31 09:58 | Outpatient (BNVA) | payer MEDICAID, SELFPAY | PROVIDERS: PCP Family Medicine; Visit Provider Anesthesiology Pain Medicine | DX: M54.2 Cervicalgia (principal) | CPT/HCPCS: 99214 ==

== ENCOUNTER 2023-02-13 10:05 | Outpatient (CLI) | payer MEDICAID, SELFPAY ==
--- NOTE | 2023-02-13 10:18 | US_ITS ---
WS: [id number] RENAL ULTRASOUND HISTORY: R FLANK PAIN COMPARISON: None available. TECHNIQUE: 2-D and color Doppler imaging of the kidney submitted. Right kidney: 11.0 cm x 4.6 cm x 5.6 cm. Cortex: 1.4 cm Normal echogenicity with no hydronephrosis or mass. Left kidney: 10.8 cm x 4.8 cm x 5.7 cm. Cortex: 1.4 cm Normal size kidney. Slightly lobulated cyst upper pole measures 5.0 x 4.6 x 5.2 cm. Aorta: Normal. Urinary Bladder: Normal distention. IMPRESSION: 1. No renal obstruction or hydronephrosis. 2. LEFT renal cyst upper pole has been previously described on 12/26/2022. Similar size as before.
== END 2023-02-13 10:06 | disposition home or self-care (01) ==
LOC: RAD 10:05
PROVIDERS: PCP Family Medicine; Visit Provider Family Medicine
DX: R10.9 Unspecified abdominal pain (principal); N28.1 Cyst of kidney, acquired
CPT/HCPCS: 76770

== ENCOUNTER 2023-03-07 08:34 | Outpatient (CLI) | payer MEDICAID, SELFPAY ==
--- NOTE | 2023-03-07 08:40 | MR_ITS ---
WS: [id number] MRI BRAIN WITH AND WITHOUT CONTRAST HISTORY: CHRONIC VERTIGO COMPARISON: None available. TECHNIQUE: Multiplanar imaging performed through the brain with MultiHance 20 ml's IV. No acute infarcts are seen. Hall-white matter differentiation is well preserved. Normal hippocampal f ormations. Very minimal small vessel ischemic type changes in the subcortical white matter of the fro ntal lobes. Very mild temporal lobe atrophy anteriorly. No susceptibility artifacts or prior lacunar infarcts. Ventricles and extra-axial spaces are normal. Clivus and pituitary gland are normal. Visualized posterior fossa and brainstem are also normal. Postcontrast images are negative for masses or vascular malformations. Dural venous sinuses are normal. Paranasal sinuses: Tiny mucous retention cysts in the floor the maxillary sinuses. Mastoid air cells: Normal. Calvarium and scalp: Normal. IMPRESSION: 1. No acute infarcts or masses. 2. Minimal small vessel ischemic type changes in subcortical white matter of the frontal lobes.
[2023-03-07] MEDS: gadobenate dimeglumine 20 mL vial IV (09:41)
== END 2023-03-07 08:35 | disposition home or self-care (01) ==
PROVIDERS: PCP Family Medicine; Visit Provider Family Medicine
DX: R42 Dizziness and giddiness (principal)
CPT/HCPCS: 70553; A9577

== ENCOUNTER → 2023-03-08 15:11 | Outpatient (BNVA) | payer MEDICAID, SELFPAY | PROVIDERS: PCP Family Medicine; Referring Provider Nurse Practitioner Family; Visit Provider Specialist | DX: G43.711 Chronic migraine without aura, intractable, with status migrainosus (principal); G31.84 Mild cognitive impairment of uncertain or unknown etiology; F60.9 Personality disorder, unspecified; F99 Mental disorder, not otherwise specified | CPT/HCPCS: 99215 ==

== ENCOUNTER → 2023-03-13 11:13 | Outpatient (BNVA) | payer MEDICAID, SELFPAY | PROVIDERS: PCP Family Medicine; Visit Provider Orthopaedic Surgery | DX: Z98.1 Arthrodesis status (principal); M54.2 Cervicalgia | CPT/HCPCS: 72040; 99214 ==

== ENCOUNTER → 2023-05-09 09:24 | Outpatient (BNVA) | payer MEDICAID, SELFPAY | PROVIDERS: PCP Family Medicine; Visit Provider Anesthesiology Pain Medicine | DX: M48.062 Spinal stenosis, lumbar region with neurogenic claudication (principal); M54.2 Cervicalgia; S22.31XA Fracture of one rib, right side, initial encounter for closed fracture; X58.XXXA Exposure to other specified factors, initial encounter | CPT/HCPCS: 99214 ==

== ENCOUNTER → 2023-06-07 10:40 | Outpatient (BNVA) | payer MEDICAID, SELFPAY | PROVIDERS: PCP Family Medicine; Visit Provider Specialist | DX: G43.711 Chronic migraine without aura, intractable, with status migrainosus (principal) | CPT/HCPCS: 64615; J0585 ==

== ENCOUNTER → 2023-06-29 12:16 | Outpatient (BNVA) | payer MEDICAID, SELFPAY | PROVIDERS: PCP Family Medicine; Referring Provider Orthopaedic Surgery; Visit Provider Specialist | DX: G56.03 Carpal tunnel syndrome, bilateral upper limbs (principal); M47.22 Other spondylosis with radiculopathy, cervical region; Z98.1 Arthrodesis status | CPT/HCPCS: 95910; 95911 ==

== ENCOUNTER → 2024-01-03 13:53 | Outpatient (BNVA) | payer MEDICAID, SELFPAY | PROVIDERS: PCP Family Medicine; Visit Provider Specialist | DX: G43.711 Chronic migraine without aura, intractable, with status migrainosus (principal) | CPT/HCPCS: 64615; J0585 ==

== ENCOUNTER 2024-03-04 14:21 | Inpatient (IN) | payer MEDICAID, SELFPAY ==
[2024-03-04] VITALS (12 sets, daily range): BP systolic 92–121; BP diastolic 55–89; PULSE 77–103; RESP 14–28; TEMP 36.4; O2SAT 92–100
--- NOTE | 2024-03-04 14:26 | XRR_ITS ---
PROCEDURE INFORMATION: Exam: XR Chest Exam date and time: 03/04/2024 2:50 PM Age: 53 years old Clinical indication: Shortness of breath; Prior surgery; Surgery date: 6+ months; Surgery type: C. Spine; Additional info: SOB TECHNIQUE: Imaging protocol: Radiologic exam of the chest. Views: 1 view. COMPARISON: CR XR ribs RT mn 3V w [id number] [id number] 05/01/2023 10:19 AM FINDINGS: Lungs: There is no consolidation. Minimal coarse reticular opacity in the right lung base consistent with subsegmental atelectasis. Indistinct central pulmonary interstitial markings. Pleural spaces: There is no pleural effusion or pneumothorax. Heart/Mediastinum: There is moderate enlargement of the cardiac silhouette. Bones/joints: Lower cervical fusion is partially imaged. No acute osseous findings. XR/XR chest 1V portable [id number] IMPRESSION: Cardiac enlargement and indistinct central pulmonary interstitial markings. Possible interstitial edema.
--- NOTE | 2024-03-04 14:45 | ECG_ITS ---
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 Measurements Intervals Inez Rate: 103 P: 52 PA: 155 QRS: -16 QRSD: 89 T: -60 QT: 372 QTc: 487 Interpretive Statements SINUS TACHYCARDIA ANTEROSEPTAL MYOCARDIAL INFARCTION , OF INDETERMINATE AGE [40+ ms Q WAVE IN V1-V4] Compared to ECG 11/12/2022 00:02:41 Myocardial infarct finding now present Sinus rhythm no longer present Electronically Signed On 03-05-2024 19:06:47 LIBRARY SERIALS ASSISTANT by Siobhan Gee M.D. [email or web address]
--- NOTE | 2024-03-04 14:49 | ED_ITS ---
HPI - URI/Sore Throat 2 General: Chief Complaint: Upper Respiratory Infection Stated Complaint: Sob, Flu like x 2 weeks Time Seen by Provider: 03/04/24 14:23 Source: patient Mode of arrival: ambulatory Limitations: no limitations History of Present Illness: 53-year-old male states over the last 2 weeks he had a flulike illness he states he had some shortness of breath cough he had bodyaches along with some nausea. He denies any chest pain he has had some generalized headaches as well. Denies any worse or improving factors. Associated symptoms: Reports chills; Deny abdominal pain, chest pain, diarrhea, fever(s), headache(s), nausea or vomiting Related Data Home Medications Medication Instructions Recorded Confirmed pantoprazole 40 mg tablet,delayed 40 mg PO DAILY 07/17/21 03/04/24 release allopurinol 300 mg tablet 300 mg PO DAILY 03/04/24 03/04/24 colchicine 0.6 mg tablet 2 mg PO ONCE PRN gout 03/04/24 03/04/24 diazepam 2 mg tablet 2 mg PO DAILY PRN Anxiety 03/04/24 03/04/24 naproxen sodium 220 mg capsule 660 mg PO BID PRN Pain 03/04/24 03/04/24 nitroglycerin 0.4 mg sublingual 0.4 mg sublingual Q5M PRN Chest 03/04/24 03/04/24 tablet Pain ramipril 10 mg capsule 10 mg PO DAILY 03/04/24 03/04/24 Allergies Allergy/AdvReac Type Severity Reaction Status Date / Time sulfamethoxazole Allergy SWOLLEN Verified 01/03/24 14:17 [From ] TONGUE trimethoprim [From ] Allergy SWOLLEN Verified 01/03/24 14:17 TONGUE Review of Systems 2 Const: Reports: chills and body aches; Denies: fever(s) or change in appetite ENMT: Denies: throat pain or dental pain Card: Denies: chest pain Resp: Reports: dyspnea and non-productive cough GI: Denies: abdominal pain, nausea, vomiting or diarrhea : Denies: dysuria Musc: Denies: neck pain or back pain Skin/Breast: Denies: rash Neuro: Denies: headache(s) PFSH ED 2 PFSH: Medical History Anesthesia complication prolonged sedation after anesthesia 06/26/2022 requiring ICU monitoring but no other intervention, not responsive to narcan; took 5-6 hours to wake up after surgery. Only thing identified is he had not slept for several days prior to surgery. Chronic migraine Depression Prediabetes History of narcotic use with prior pain treatment contract, not using regular narcotic pain control as of 06/26/2022 History of psychiatric care Acute encephalopathy Hypertension GERD (gastroesophageal reflux disease) Hyperlipidemia History of electroencephalogram 11/04/20 This was a normal routine EEG, awake and drowsy and asleep, with no behavioral or electrographic epileptiform activity. This patient was excessively sleepy and was not sleep deprived. Consider a sleep disorder if clinically appropriate. Bipolar disorder Gout Brilliant tick fever History of Holter monitoring 09/2019 baseline sinus tachycardia with heart rate of 135 bpm, no pauses or bradycardia, diminished heart rate variability 12/2019 baseline sinus rhythm at 94 bpm, symptomatic sinus tachycardia with heart rate 72-126 bpm Psychiatric care Hyperparathyroidism s/p partial parathyroidectomy Bleeding per rectum Had anoscope done by Dr Garcia 08/30/2020 with no fistulae, sinuses, induration, abscess formation or fissures = normal findings Other stimulant dependence, in remission prior methamphetamine use Bilateral renal stones Has seen Dr Bhatti in past, non-obstructive, remote lithotripsy, otherwise monitored for symptoms Cervical disc disease With cervical radiculopathy, spondylosis, spondylosis with myelopathy B12 deficiency 09/2019 Generalized anxiety disorder Cannabis dependence, uncomplicated history, unknown if still using as of 06/26/2022 Carpal tunnel syndrome, left upper limb by nerve conduction study performed 05/2019, has not had surgery as of 06/26/2022 Surgical History Status post cervical discectomy 06/26/2022 Dr Mcghee anterior cervical discectomy C4/C5 with insertion of cage, instrumentation with anterior plate C4-C5, with C4-C7 posterior fusion and instrumentation, use of allograft History of esophagogastroduodenoscopy (EGD) 2016 History of colonoscopy 2016 S/P extracorporeal shock wave therapy History of parathyroidectomy partial, performed by Dr Henderson, never followed-up after surgery History of lumbar laminectomy 09/01/2020 Dr Mcghee L4/5 with bilateral partial facetectomy History of neck surgery 03/24/2020 Dr Mcghee Anterior discectomy with insertion of cage/instrumentation/use of allograft and anterior plate at C5/6 & C6/7 History of cholecystectomy History of knee surgery Left knee arthroscopy 08/[address] Campbell, had MRSA Family History Brother Hypertension Valvular heart disease Grandfather Hypertension History of open heart surgery Father History of open heart surgery Social History Smoking and tobacco/nicotine status: current every day tobacco/nicotine user cigarettes Years cigarettes smoked: 35 Alcohol intake: current Alcohol intake frequency: few times a week Alcohol type: beer Substance/Drug Use: former Household members: other Details: lives with mother who is a former [employer] [facility] [employer] nurse Marital status: Current occupational status: unemployed and disabled Physical Exam 2 Const: COMMON NORMALS: no acute distress, patient oriented x3 and healthy appearing HENMT: COMMON NORMALS: normocephalic and atraumatic HEAD & SCALP: n ormocephalic and atraumatic Eye: COMMON NORMALS: Equal, round and reactive pupils present and EOMs intact bilaterally PUPIL: Yes Equal, round and reactive pupils present Neck/C-Spine: COMMON NORMALS: full ROM and supple Chest: COMMONS NORMALS: normal inspection of the chest and normal palpation of entire chest wall Resp: COMMON NORMALS: normal respiratory effort, No retractions, No use of accessory muscles and clear to auscultation bilaterally AUSCULTATION: clear to auscultation bilaterally Cardio: COMMON NORMALS: regular rate, regular rhythm and No murmurs present (Cardio) RATE: regular rate RHYTHM: regular rhythm GI: COMMON NORMALS: Normal to inspection, nondistended, normoactive bowel sounds present, Soft to palpation, non-tender and no masses PALPATION: Yes Soft to palpation Extremity: COMMON NORMALS: normal to inspection and full ROM Neuro: COMMON NORMALS: patient oriented x3, moves all extremities and no focal motor deficits Psych: COMMON NORMALS: mental status grossly normal, Normal thought process present and cooperative THOUGHT PROCESS: Normal thought process present Skin: COMMON NORMALS: no rashes or lesions noted and no wounds GENERAL SKIN EXAM: no rashes or lesions noted Course 2 Vital Signs: Vital signs: Vital Signs Temperature 98.5 F 03/05/24 04:00 Pulse Rate 97 03/05/24 04:34 Respiratory Rate 26 H 03/05/24 04:34 Blood Pressure 93/69 03/05/24 04:00 Pulse Oximetry 97 03/05/24 04:34 Oxygen Delivery Me thod Nasal Cannula 03/05/24 04:34 Oxygen Flow Rate 2 03/05/24 04:34 MDM - URI/Sore Throat Medical Decision Making Patient presents with cough shortness of breath he is found to have a pneumonia CT scan showed no PE I spoke to the hospitalist will admit on antibiotics. Medical Records I reviewed the patient's medical records. Lab Data I reviewed the patient's lab results. 03/05/24 04:29 03/05/24 04:29 Radiology Impressions Chest X-Ray 03/04/24 14:26 IMPRESSION: Cardiac enlargement and indistinct central pulmonary interstitial markings. Possible interstitial edema. Chest/Abdomen/Pelvis CT 03/04/24 16:36 IMPRESSION: 1. Negative for pulmonary embolus. 2. Scattered enlarged mediastinal lymph nodes measuring up to 13 mm, nonspecific. 3. Small to moderate bilateral pleural effusions. 4. Coronary artery atherosclerotic calcifications. 5. Cardiomegaly. 6. Patchy right lung bronchopneumonia. IMPRESSION: 1. Mildly prominent fluid in the stomach and small bowel, please correlate for a gastroenteritis. 2. Left hepatic lobe cyst along with several additional suspected cysts. 3. Cholecystectomy. 4. Bilateral renal cysts, negative for follow up advised. 5. Bilateral punctate nonobstructing renal calyceal stones. 6. Diverticulosis without diverticulitis. 7. Small omental fat containing hernia. 8. Trace nonspecific fluid in the pelvis. 9. Small hiatal hernia. 10. Perinephric edema bilaterally likely reflecting renal insufficiency, please correlate for pyelonephritis. Abdomen Ultrasound 03/04/24 19:31 IMPRESSION: 1. Macronodular contour of the liver, concerning for cirrhosis. 2. Left hepatic lobe hyperechoic mass, which may represent hemangioma. Further evaluation with contrast enhanced abdomen MRI should be considered in the adequate clinical setting. 3. Bilateral thinning of the renal cortex, suggestive of chronic scarring. Laboratory Results WBC 13.43 10^3/uL (3.29-11.43) H 11/26/24 14:47 RBC 4.31 10^6/uL (3.85-5.65) 03/04/24 14:47 Hgb 12.40 g/dL (11.27-16.99) 03/04/24 14:47 Hct 37.8 % (37-53) 03/04/24 14:47 MCV 87.7 fl (82-101) 03/04/24 14:47 MCH 28.8 pg (27-33) 03/04/24 14:47 MCHC 32.8 g/dL (30-55) 03/04/24 14:47 RDW 16.1 % (12.1-15.1) H 03/04/24 14:47 Plt Count 273 10^3/cmm (157-399) 03/04/24 14:47 MPV 10.9 fL (7.4-10.4) H 03/04/24 14:47 Neut % (Auto) 70.0 % 03/04/24 14:47 Lymph % (Auto) 23.8 % 03/04/24 14:47 [place] % (Auto) 5.3 % 03/04/24 14:47 Eos % (Auto) 0.3 % 03/04/24 14:47 Baso % (Auto) 0.1 % 03/04/24 14:47 Neut # (Auto) 9.40 10^3/uL (1.8-7.7) H 03/04/24 14:47 Lymph # (Auto) 3.2 10^3/uL (0.8-4.8) 03/04/24 14:47 [place] # (Auto) 0.7 10^3/uL (0.2-0.9) 03/04/24 14:47 Eos # (Auto) 0.0 10^3/uL (0.0-0.8) 03/04/24 14:47 Baso # (Auto) 0.0 10^3/uL (0.0-0.1) 03/04/24 14:47 Nucleated RBC % (auto) 0 % 03/04/24 14:47 Nucleated RBCs # 0.0 /100WBC 03/04/24 14:47 PT 16.50 SECONDS (12.1-14.9) H 03/04/24 15:45 INR 1.29 (0.8-1.2) H 03/04/24 15:45 Sodium 133 mmol/L (136-145) L 03/04/24 15:45 Potassium 4.7 mmol/L (3.5-5.1) 03/04/24 15:45 Chloride 100 mmol/L (98-107) 03/04/24 15:45 Carbon Dioxide 21 mmol/L (22-29) L 03/04/24 15:45 Anion Gap 16.7 (5-19) 03/04/24 15:45 BUN 15 mg/dL (6-20) 03/04/24 15:45 Creatinine 1.4 mg/dL (0.7-1.2) H 03/04/24 15:45 GFR Calculation 52.8 mL/min (90-130) L 03/04/24 15:45 Glucose 109 mg/dL (65-115) 03/04/24 15:45 Calculated Osmolality 277 mOsm/kg (285-295) L 03/04/24 15:45 Lactic Acid 2.0 mmol/L (0.5-2.2) 03/04/24 17:50 Calcium 9.4 mg/dL (8.5-10.5) 03/04/24 15:45 Total Bilirubin 4.5 mg/dL (0.15-1.2) H 03/04/24 17:50 Direct Bilirubin 0.60 mg/dL (0.00-0.30) H 03/04/24 17:50 Indirect Bilirubin 3.90 03/04/24 17:50 GGT 21 U/L (8-61) 03/04/24 17:50 AST 78 U/L (0-40) H 03/04/24 15:45 ALT 68 U/L (0-41) H 03/04/24 15:45 Alkaline Phosphatase 127 U/L (40-130) 03/04/24 15:45 Creatine Kinase 93 U/L (39-308) 03/04/24 17:50 Troponin T Baseline 22 ng/L (0-15) H 03/04/24 15:45 C-Reactive Protein 41.0 mg/L (0.0-4.9) H 03/04/24 17:50 NT-Pro-B Natriuret Pep 06062 pg/mL (0-125) H 03/04/24 15:45 Total Protein 6.8 g/dL (6.6-8.7) 03/04/24 15:45 Albumin 3.7 g/dL (3.5-5.2) 03/04/24 15:45 Globulin 3.1 g/dL (1.3-4.6) 03/04/24 15:45 Triglycerides 67 mg/dL (0-150) 03/04/24 17:50 Cholesterol 129 mg/dL (0-200) 03/04/24 17:50 LDL Cholesterol, Calc 92 mg/dL (50-129) 03/04/24 17:50 HDL Cholesterol 24 mg/dL (60-100) L 03/04/24 17:50 LDL/HDL Ratio 3.83 RATIO (0.00-3.22) H 03/04/24 17:50 Cholesterol/HDL Ratio 5.38 mg/dL (1.0-5.00) H 03/04/24 17:50 Lipase 25 U/L (13-60) 03/04/24 17:50 Procalcitonin 0.13 ng/mL (0-0.5) 03/04/24 17:50 TSH 2.09 uIU/mL (0.27-4.20) 03/04/24 17:50 Ethyl Alcohol < 10 mg/dL (0-10) 03/04/24 15:45 Coronavirus (PCR) Negative (Negative) 03/04/24 14:32 Hepatitis A IgM Ab Non-reactive (Nonreactive) 03/04/24 15:45 Hep Bs Antigen Non-reactive (Nonreactive) 03/04/24 15:45 Hep Bs Antibody < 3.5 (11.5-1000) L 03/04/24 15:45 Hep B Core Total Ab Non-reactive (Nonreactive) 03/04/24 15:45 Hepatitis C Antibody Non-reactive (Nonreactive) 03/04/24 15:45 HIV 1&2 Ab & HIV 1 Ag Non-reactive (Non-Reactiv) 03/04/24 15:45 HIV 1&2 Antibody Non-reactive (Non-Reactiv) 03/04/24 15:45 Influenza A (PCR) Negative (Negative) 03/04/24 14:32 Influenza Type B (PCR) Negative (Negative) 03/04/24 14:32 RSV (PCR) Negative (Negative) 03/04/24 14:32 All radiology interpretation(s) finalized by discharge EKG Data EKG 1: I personally reviewed and interpreted this EKG as follows: EKG interpretation date: 03/04/24 EKG interpretation time: 14:45 Interpretation: sinus tach hr [address] or t wave abnormalities qrs 89 qtc 431 Discharge Plan Discharge Patient Disposition: Admitted As Inpatient Admit Provider: Kwame Fisher Clinical Impression: Bronchopneumonia Condition: Stable Coding Level of Care Code ED Melt Helper for Chg [place]
[2024-03-04 14:57] LABS: Basophils % 0.1 %; Eosinophils % 0.3 %; Hematocrit 37.8 % (37-53); Lymphocytes # 3.2 10^3/uL (0.8-4.8); Lymphocytes % 23.8 %; Mean Corpuscular HGB Conc 32.8 g/dL (30-55); Mean Corpuscular Hemoglobin 28.8 pg (27-33); Mean Corpuscular Volume 87.7 fl (82-101); Mean Platelet Volume 10.9 fL (7.4-10.4); Monocytes # 0.7 10^3/uL (0.2-0.9); Monocytes % 5.3 %; Nucleated Red Blood Cells % 0 %; Platelet Count 273 10^3/cmm (157-399); Red Blood Count 4.31 10^6/uL (3.85-5.65); Red Cell Distribution Width 16.1 % (12.1-15.1); White Blood Count 13.43 10^3/uL (3.29-11.43)
[2024-03-04 15:27] LABS: Slide Review Slide Review Perform
[2024-03-04 15:34] LABS: Covid PCR NEGATIVE (Negative); Influenza A NEGATIVE (Negative); Influenza B NEGATIVE (Negative); Respiratory Syncytial Virus Ce NEGATIVE (Negative)
[2024-03-04 16:27] LABS: Alanine Aminotransferase 68 U/L (0-41); Albumin Level 3.7 g/dL (3.5-5.2); Alkaline Phosphatase 127 U/L (40-130); Anion Gap 16.7 (5-19); Aspartate Amino Transferase 78 U/L (0-40); Blood Urea Nitrogen 15 mg/dL (6-20); Calcium 9.4 mg/dL (8.5-10.5); Carbon Dioxide 21 mmol/L (22-29); Chloride 100 mmol/L (98-107); Globulin 3.1 g/dL (1.3-4.6); Glomerular Filtration Rate 52.8 mL/min (90-130); Glucose 109 mg/dL (65-115); Lipase 24 U/L (13-60); NT Pro B Type Natriuretic Pept 11895 pg/mL (0-125); Osmolality Calculated 277 mOsm/kg (285-295); Potassium 4.7 mmol/L (3.5-5.1); Sodium 133 mmol/L (136-145); Total Bilirubin 4.5 mg/dL (0.15-1.2); Total Protein 6.8 g/dL (6.6-8.7)
--- NOTE | 2024-03-04 16:36 | CTR_ITS ---
PROCEDURE INFORMATION: Exam: CTA Chest With Contrast Exam date and time: 03/04/2024 4:47 PM Age: 53 years old Clinical indication: Abdominal tenderness; Shortness of breath; Additional info: SOB TECHNIQUE: Imaging protocol: Computed tomographic angiography of the chest with contrast. Exam focused on the arteries. 3D rendering (Not supervised by radiologist): MIP and/or 3D reconstructed images were created by the technologist. Radiation optimization: All CT scans at this facility use at least one of these dose optimization techniques: automated exposure control; mA and/or kV adjustment per patient size (includes targeted exams where dose is matched to clinical indication); or iterative reconstruction. Contrast material: OMNIPAQUE 350; Contrast volume: 100 ml; Contrast route: INTRAVENOUS (IV); COMPARISON: CT angio chest w abd pel w con 09/11/2019 8:10 PM RADIATION DOSE METRICS: Total DLP (mGy-cm): 1172.28 FINDINGS: Pulmonary arteries: Normal. No pulmonary emboli. Aorta: Unremarkable. No aortic aneurysm. No aortic dissection. Lungs: Patchy right lung bronchopneumonia. Pleural spaces: Small to moderate bilateral pleural effusions. Heart: Cardiomegaly. Coronary arteries: Coronary artery atherosclerotic calcifications. Lymph nodes: Scattered enlarged mediastinal lymph nodes measuring up to 13 mm, nonspecific. Bones/joints: Unremarkable. No acute fracture. Soft tissues: Unremarkable. PROCEDURE INFORMATION: Exam: CT Abdomen And Pelvis With Contrast Exam date and time: 03/04/2024 4:47 PM Age: 53 years old Clinical indication: Abdominal tenderness; Shortness of breath; Additional info: SOB TECHNIQUE: Imaging protocol: Computed tomography of the abdomen and pelvis with contrast. Radiation optimization: All CT scans at this facility use at least one of these dose optimization techniques: automated exposure control; mA and/or kV adjustment per patient size (includes targeted exams where dose is matched to clinical indication); or iterative reconstruction. Contrast material: OMNIPAQUE 350; Contrast volume: 100 ml; Contrast route: INTRAVENOUS (IV); COMPARISON: CT abdomen pelvis w con* [id number] 12/26/2022 1:46 PM RADIATION DOSE METRICS: Total DLP (mGy-cm): 1172.28 FINDINGS: Liver: Left hepatic lobe cyst along with several additional suspected cysts. Gallbladder and biliary ducts: Cholecystectomy. Pancreas: Normal. No ductal dilation. Spleen: Normal. No splenomegaly. Adrenal glands: Normal. No mass. Kidneys and ureters: Bilateral renal cysts, negative for follow up advised. Bilateral punctate nonobstructing renal calyceal stones. Perinephric edema bilaterally likely reflecting renal insufficiency, please correlate for pyelonephritis. Stomach and bowel: Mildly prominent fluid in the stomach and small bowel, please correlate for a gastroenteritis. Diverticulosis without diverticulitis. Small hiatal hernia. Appendix: No evidence of appendicitis. Intraperitoneal space: Small omental fat containing hernia. Vasculature: Unremarkable. No abdominal aortic aneurysm. Lymph nodes: Unremarkable. No enlarged lymph nodes. Urinary bladder: Unremarkable as visualized. Reproductive: Unremarkable as visualized. Bones/joints: Unremarkable. No acute fracture. Soft tissues: Unremarkable. Other findings: Trace nonspecific fluid in the pelvis. CT/CT angio chest w abd pel w con IMPRESSION: 1. Negative for pulmonary embolus. 2. Scattered enlarged mediastinal lymph nodes measuring up to 13 mm, nonspecific. 3. Small to moderate bilateral pleural effusions. 4. Coronary artery atherosclerotic calcifications. 5. Cardiomegaly. 6. Patchy right lung bronchopneumonia. IMPRESSION: 1. Mildly prominent fluid in the stomach and small bowel, please correlate for a gastroenteritis. 2. Left hepatic lobe cyst along with several additional suspected cysts. 3. Cholecystectomy. 4. Bilateral renal cysts, negative for follow up advised. 5. Bilateral punctate nonobstructing renal calyceal stones. 6. Diverticulosis without diverticulitis. 7. Small omental fat containing hernia. 8. Trace nonspecific fluid in the pelvis. 9. Small hiatal hernia. 10. Perinephric edema bilaterally likely reflecting renal insufficiency, please correlate for pyelonephritis.
[2024-03-04] MEDS: ondansetron 2 mg/ML SDV 2 mL 4 MG IVP (16:46)
[2024-03-04] MEDS: iohexol 350 mg/mL 500 mL Btl (per mL) IV (16:52)
[2024-03-04 17:06] LABS: Alcohol Level < 10 mg/dL (0-10)
[2024-03-04] MEDS: LORazepam 1 mg Tablet PO (17:06)
[2024-03-04] MEDS: AZITHROMYCIN ADD-Vantage 500 MG in 0.9% NaCl ADD-Vantage 250 ML 250 MG IV (17:43)
[2024-03-04] MEDS: cefTRIAXone 1,000 mg SDV 1000 MG IVP (17:44)
--- NOTE | 2024-03-04 18:09 | ECG_ITS ---
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 Measurements Intervals [place] Rate: 100 P: 52 AK: 163 QRS: -12 QRSD: 81 T: -32 QT: 364 QTc: 471 Interpretive Statements SINUS TACHYCARDIA LOW QRS VOLTAGE IN PRECORDIAL LEADS [QRS DEFLECTION < 1.0 mV IN CHEST LEADS] SEPTAL MYOCARDIAL INFARCTION , OF INDETERMINATE AGE [40+ ms Q WAVE IN V1/V2] Compared to ECG 03/04/2024 14:45:00 Low QRS voltage now present Myocardial infarct finding still present Electronically Signed On 03-05-2024 19:06:56 DEPOSITING MACHINE OPERATOR by Siobhan Gee M.D. [id number]
--- NOTE | 2024-03-04 18:13 | P.HP_ITS ---
Providers/Chief Complaint 2 Admitting Physician: Kwame Fisher MD Primary Care Provider: Soto Escamilla MD Chief Complaint: Sob, Flu like x 2 weeks History of Present Illness Vivek Corral is a 53 year old male with a past medical history of chronic neck pain, migraines, history of neck surgery, hypertension, depression, who presents to [facility] due to fatigue, malaise, shortness of breath, cough. Patient tells me for the last few days he has been experiencing increased shortness of breath, increased shortness of breath on exertion with a nonproductive cough, subjective fevers chills fatigue, malaise. He has also been experiencing chest pain he had to use nitroglycerin due to episodes of chest pain. Denies any alcohol use, denies any drug use, no cardiovascular see no history of strokes, no history of liver failure. He tells me also he is right flank has been hurting him as if he has a kidney stone. Denies a history of liver failure, no history of gallstones. Review of Systems 2 Const: Reports: fever(s), chills, fatigue and malaise Card: Reports: chest pain Resp: Reports: dyspnea GI: Denies: abdominal pain : Reports: flank pain Musc: Reports: neck pain and back pain Neuro: Denies: headache(s) Medications/Allergies Home Medications Medication Instructions Recorded Confirmed Last Taken Type pantoprazole 40 mg tablet,delayed 40 mg PO DAILY 07/17/21 03/04/24 06/25/22 History release allopurinol 300 mg tablet 300 mg PO DAILY 03/04/24 03/04/24 Unknown History colchicine 0.6 mg tablet 2 mg PO ONCE PRN gout 03/04/24 03/04/24 Unknown History diazepam 2 mg tablet 2 mg PO QPM 03/04/24 03/04/24 Unknown History nitroglycerin 0.4 mg sublingual 0.4 mg sublingual Q5M PRN Chest 03/04/24 03/04/24 Unknown History tablet Pain ramipril 10 mg capsule 10 mg PO DAILY 03/04/24 03/04/24 Unknown History Allergies Allergy/AdvReac Type Severity Reaction Status Date / Time sulfamethoxazole Allergy SWOLLEN Verified 01/03/24 14:17 [From ] TONGUE trimethoprim [From ] Allergy SWOLLEN Verified 01/03/24 14:17 TONGUE PFSH Acute 2 [facility]: Medical History Anesthesia complication prolonged sedation after anesthesia 06/26/2022 requiring ICU monitoring but no other intervention, not responsive to narcan; took 5-6 hours to wake up after surgery. Only thing identified is he had not slept for several days prior to surgery. Chronic migraine Depression Prediabetes History of narcotic use with prior pain treatment contract, not using regular narcotic pain control as of 06/26/2022 History of psychiatric care Acute encephalopathy Hypertension GERD (gastroesophageal reflux disease) Hyperlipidemia History of electroencephalogram 11/04/20 This was a normal routine EEG, awake and drowsy and asleep, with no behavioral or electrographic epileptiform activity. This patient was excessively sleepy and was not sleep deprived. Consider a sleep disorder if clinically appropriate. Bipolar disorder Gout [place] tick fever History of Holter monitoring 09/2019 baseline sinus tachycardia with heart rate of 135 bpm, no pauses or bradycardia, diminished heart rate variability 12/2019 baseline sinus rhythm at 94 bpm, symptomatic sinus tachycardia with heart rate 72-126 bpm Psychiatric care Hyperparathyroidism s/p partial parathyroidectomy Bleeding per rectum Had anoscope done by Dr Garcia 08/30/2020 with no fistulae, sinuses, induration, abscess formation or fissures = normal findings Other stimulant dependence, in remission prior methamphetamine use Bilateral renal stones Has seen Dr Bhatti in past, non-obstructive, remote lithotripsy, otherwise monitored for symptoms Cervical disc disease With cervical radiculopathy, spondylosis, spondylosis with myelopathy B12 deficiency 09/2019 Generalized anxiety disorder Cannabis dependence, uncomplicated history, unknown if still using as of 06/26/2022 Carpal tunnel syndrome, left upper limb by nerve conduction study performed 05/2019, has not had surgery as of 06/26/2022 Surgical History Status post cervical discectomy 06/26/2022 Dr Mcghee anterior cervical discectomy C4/C5 with insertion of cage, instrumentation with anterior plate C4-C5, with C4-C7 posterior fusion and instrumentation, use of allograft History of esophagogastroduodenoscopy (EGD) 2016 History of colonoscopy 2016 S/P extracorporeal shock wave therapy History of parathyroidectomy partial, performed by Dr Henderson, never followed-up after surgery History of lumbar laminectomy 09/01/2020 Dr Mcghee L4/5 with bilateral partial facetectomy History of neck surgery 03/24/2020 Dr Mcghee Anterior discectomy with insertion of cage/instrumentation/use of allograft and anterior plate at C5/6 & C6/7 History of cholecystectomy History of knee surgery Left knee arthroscopy 08/[address] Campbell, had MRSA Family History Brother Hypertension Valvular heart disease Grandfather Hypertension History of open heart surgery Father History of open heart surgery Social History Smoking and tobacco/nicotine status: current every day tobacco/nicotine user cigarettes Years cigarettes smoked: 35 Alcohol intake: current Alcohol intake frequency: few times a week Alcohol type: beer Substance/Drug Use: former Household members: other Details: lives with mother who is a former [facility] [place] [facility] [place] nurse Marital status: Current occupational status: unemployed and disabled Vitals/I&O/Wt Last Vital Signs Temp 97.6 F 03/04/24 14:22 Pulse 101 H 03/04/24 18:00 Resp 18 03/04/24 18:00 BP 119/88 03/04/24 18:00 Pulse Ox 99 03/04/24 18:00 O2 Del Method Nasal Cannula 03/04/24 18:00 O2 Flow Rate 2 03/04/24 18:00 Physical Exam 2 Const: COMMON NORMALS: no acute distress and patient oriented x3 Eye: COMMON NORMALS: Equal, round and reactive pupils present OTHER: scleral icterus, jaundice Resp: AUSCULTATION: crackles and wheezes OTHER: Mild respiratory failure with tachypnea, tachycardia, nasal flaring, suprasternal retractions intercostal retractions wheezing and crackles in all lung wolf speaking a few sentences before feeling short of breath Cardio: COMMON NORMALS: no JVD, regular rate, regular rhythm, S1 normal heart sound present and S2 normal heart sound present RATE: tachycardic RHYTHM: regular rhythm HEART SOUNDS: S1 normal heart sound present and S2 normal heart sound present GI: COMMON NORMALS: Normal to inspection, nondistended, normoactive bowel sounds present, Soft to palpation and non-tender Extremity: COMMON NORMALS: no pedal edema Neuro: COMMON NORMALS: patient oriented x3, CN's II-XII intact bilaterally and moves all extremities Psych: COMMON NORMALS: mental status grossly normal Data 03/04/24 14:47 03/04/24 15:45 Micro: Microbiology 03/04/24 17:56 Blood Culture - Preliminary Blood SPECIMEN COLLECTED 03/04/24 17:50 Blood Culture - Preliminary Blood SPECIMEN COLLECTED A&P Assessment and plan (1) Acute hypoxic respiratory failure: (2) Bronchopneumonia: (3) Pyelonephritis: (4) ZOEY (acute kidney injury): (5) Acute heart failure: (6) Transaminitis: (7) Acute liver failure: (8) Chest pain: Qualifiers: Chest pain type: unspecified Qualified Code(s): R07.9 - Chest pain, unspecified (9) Sepsis: Plan Acute hypoxic respiratory failure ? Likely multifactorial ? From bronchopneumonia ? From CHF, elevated BNP, CT of the chest showing bilateral pleural effusions ? Plan ? Sputum cultures ? Blood cultures ? Cardiac echo ? Rocephin ? Azithromycin ? DuoNeb ? Budesonide ? Monitor respiratory status closely Systolic CHF exacerbation? ? BNP over 11,[address] of the chest showing bilateral pleural effusions ? Given ZOEY creatinine 1.4 evidence of sepsis, hold off on Lasix therapy ? Fluid restrictions at 1000 cc ? Cardiac echo Acute kidney injury ? Creatinine 1.4 ? Likely secondary to sepsis ? Monitor Will hold off on fluids given BNP over 11,000 Acute liver failure? As for his transaminitis, bili Jeff elevation ? Fractionated bilirubin ? Ultrasound liver ? CT of the abdomen does not show intra or extrahepatic biliary dilatation status post cholecystectomy ? Acute hep panel, HIV ? Complaints of chest pain ? Serial EKGs, serial troponins, telemetry monitoring Schedule aspirin, statin Sepsis No sepsis markers but given acute respiratory failure, evidence of mild respiratory distress, elevated WBC count, source of infection pneumonia, with ZOEY, acute liver failure, CHF Full code Lovenox for DVT prophylaxis Attestations 2 Medical Necessity Statement*: Patient requires hospitalization, inpatient, greater than 2 midnights, for acute hypoxic respiratory failure, pneumonia, CHF ZOEY, acute liver failure, chest pain, sepsis Diagnoses Acute hypoxic respiratory failure J96.01 Bronchopneumonia J18.0 Pyelonephritis N12 ZOEY (acute kidney injury) N17.9 Acute heart failure I50.9 Transaminitis R74.01 Acute liver failure K72.00 Chest pain R07.9 Chest pain type: unspecified Sepsis A41.9
[2024-03-04 18:27] LABS: Troponin(5th) Baseline 22 ng/L (0-15)
[2024-03-04 18:46] LABS: INR 1.29 (0.8-1.2)
[2024-03-04 18:50] LABS: Procalcitonin 0.13 ng/mL (0-0.5)
--- NOTE | 2024-03-04 19:31 | USCV_ITS ---
Vivek Corral Age: 53 Gender: M : 1970 Exam Date: 03/04/2024 19:46 Ordering Phys: Kwame Fisher MD Technologist: DAWOOD [place] [facility] [place]: chest pain BP: 121 / 87 HR: 84 Rhythm: Atrial fibrillation Technical Quality: Adequate MEASUREMENTS (Male / Female) Normal Values 2D ECHO LV Diastolic Diameter PLAX 4.9 cm 4.2 - 5.9 / 3.9 - 5.3 cm IVS Diastolic Thickness 1.2 cm 0.6 - 1.0 / 0.6 - 0.9 cm IVS Systolic Thickness 1.4 cm LVPW Diastolic Thickness 1.4 cm 0.6 - 1.0 / 0.6 - 0.9 cm LVPW Systolic Thickness 1.6 cm LVOT Diameter 2.2 cm LV Ejection Fraction 2D Teich 14.9 % LV Ejection Fraction MOD 4C 7.6 % LV Ejection Fraction MOD 2C 17.9 % LV Ejection Fraction 2C AL 18.8 % LA Diameter 4.8 cm Aorta at Sinotubular Diameter 3.2 cm IVC Diameter 2.5 cm M-MODE LA Ao Ratio MM 1.6 AV Cusp Separation MM 1.8 cm DOPPLER AV Peak Velocity 89.0 cm/s LVOT Peak Velocity 64.0 cm/s AV Area Cont Eq vti 2.2 cm squared AV Area Cont Eq pk 2.8 cm squared MV Peak Velocity 92.0 cm/s MV Area PHT 3.1 cm squared Mitral E to A Ratio 689.0 TV Peak Velocity 240.0 cm/s TR Peak Velocity 265.0 cm/s TR Peak Gradient 28.1 mmHg TV Peak E Velocity 35.0 cm/s PV Peak Velocity 51.0 cm/s FINDINGS Left Ventricle Severe diffuse hypokinesia of the left ventricle with an ejection fraction of around 15% Right Ventricle Normal RV size with a slightly diminished ejection fraction Right Atrium Normal right atrial size. Left Atrium Mildly ncreased left atrial size. Mitral Valve Thickened mitral valve. Mild mitral annular calcification. Mild to moderate mitral valve regurgitation. Aortic Valve Thickened aortic valve. Tricuspid Valve Gllu-vq-abatbrem tricuspid valve regurgitation. Estimated pulmonary artery peak systolic pressure 43 mmHg Pulmonic Valve Mild pulmonary valve regurgitation. Pericardium No pericardial effusion. Aorta Normal aortic annulus size. IVC Dilated IVC with decreased respiratory variation. Estimated right atrial pressure of 15 mmHg CONCLUSIONS Severe diffuse hypokinesia of the left ventricle with an ejection fraction of around 15%. Mildly ncreased left atrial size. Thickened mitral valve. Mild mitral annular calcification. Mild to moderate mitral valve regurgitation. Thickened aortic valve. Xzup-lj-wyzqjuvp tricuspid valve regurgitation. Estimated pulmonary artery peak systolic pressure 43 mmHg. Mild pulmonary valve regurgitation. There is no pericardial effusion. Compared to the study from 09/12/2019, there is a marked decline in the LV ejection fraction from 55% to 15% Dr Siobhan Gee MD FAC (Electronically Signed) Final Date: 04 March 2024 21:44 S
--- NOTE | 2024-03-04 19:31 | USR_ITS ---
PROCEDURE INFORMATION: Exam: US Abdomen Complete Exam date and time: 03/04/2024 8:27 PM Age: 53 years old Clinical indication: Abdominal pain; Localized; Right upper quadrant (ruq) TECHNIQUE: Imaging protocol: Real-time ultrasound of the abdomen with image documentation. Complete exam. COMPARISON: US renal BI* [id number] 02/13/2023 10:26 AM FINDINGS: Liver: Macronodular contour of the liver, concerning for cirrhosis. Septated cyst measuring 3.6 cm noted. There is a 1.9 cm hyperechoic lesion in the left hepatic lobe. Gallbladder: The gallbladder has been surgically removed. Biliary ducts: Normal. No stones. No dilation. Pancreas: Obscured by overlying bowel gas. Right kidney: Normal echogenicity. Cortical thinning is present. No mass. No hydronephrosis. Small cyst measuring 1.1 cm seen. Left kidney: Normal echogenicity. Cortical thinning is present. No mass. There is a nonobstructing stone measuring 0.9 cm in the left mid kidney. No hydronephrosis. Small cysts noted, the largest measuring 3.9 cm. Spleen: Normal. No splenomegaly. Aorta: Normal. No aneurysm. Inferior vena cava: Normal. US/US abdomen complete* [id number] IMPRESSION: 1. Macronodular contour of the liver, concerning for cirrhosis. 2. Left hepatic lobe hyperechoic mass, which may represent hemangioma. Further evaluation with contrast enhanced abdomen MRI should be considered in the adequate clinical setting. 3. Bilateral thinning of the renal cortex, suggestive of chronic scarring.
[2024-03-04 19:34] LABS: Ammonia 33 umol/L (16-60)
[2024-03-04 20:18] LABS: HIV 1 & 2 Antibody Non-Reactive (Non-Reactiv); HIV 1 & 2 Antigen Non-Reactive (Non-Reactiv)
[2024-03-04] MEDS: ipratropium-albuterol 3 mL Neb INHALATION (20:22)
[2024-03-04] MEDS: budesonide 0.5 mg/2 mL Neb INHALATION (20:22)
--- NOTE | 2024-03-04 20:24 | PC.NURSE ---
call placed to Dr. Cifuentes and notified of reported critical finding of pt EF 15%.
[2024-03-04 20:32] LABS: Chol HDL Ratio 5.38 mg/dL (1.0-5.00); Cholesterol 129 mg/dL (0-200); Creatine Phosphokinase 93 U/L (39-308); HDL Cholesterol 24 mg/dL (60-100); LDL Cholesterol Calculated 92 mg/dL (50-129); LDL HDL Ratio 3.83 RATIO (0.00-3.22); Lipase 25 U/L (13-60); Thyroid Stimulating Hormone 2.09 uIU/mL (0.27-4.20); Total Bilirubin 4.5 mg/dL (0.15-1.2); Triglycerides 67 mg/dL (0-150)
[2024-03-04 20:58] LABS: Troponin 5 2HR 22.43 ng/L (0-15); Troponin 5 2HR Delta 0.43 ABS# (0-10)
[2024-03-04 21:03] LABS: Estmated Average Glucose 117; Hemoglobin A1C 5.7 % (4.0-6.0)
--- NOTE | 2024-03-04 21:07 | PC.NURSE ---
Dr. Conde notified of PT bp of 100/62 and has order for Lasix 40mg IV, new order received to give pt 20mg Lasix IVP, wait an hour and if BP is stable can give another 20 mg
[2024-03-04 21:08] LABS: Hepatitis A Antibody IgM Non-Reactive (Nonreactive); Hepatitis B Core AB, Total Non-Reactive (Nonreactive); Hepatitis B Surface AB < 3.5 (11.5-1000); Hepatitis B Surface Antigen Non-Reactive (Nonreactive); Hepatitis C Virus Antibody Non-Reactive (Nonreactive)
--- NOTE | 2024-03-04 21:09 | ECG_ITS ---
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 Measurements Intervals [place] Rate: 100 P: 57 NE: 153 QRS: -19 QRSD: 94 T: 180 QT: 373 QTc: 482 Interpretive Statements SINUS TACHYCARDIA ANTEROSEPTAL MYOCARDIAL INFARCTION , OF INDETERMINATE AGE [40+ ms Q WAVE IN V1-V4] Compared to ECG 03/04/2024 18:09:24 No significant changes Electronically Signed On 03-05-2024 19:38:42 PERIPHERAL EDP EQUIPMENT OPERATOR by Siobhan Gee M.D. [id number]
[2024-03-04] MEDS: enoxaparin 40 mg/0.4 mL Syringe SUBCUT (21:12)
[2024-03-04] MEDS: aspirin 81 mg EC Tablet PO (21:12)
[2024-03-04] MEDS: atorvastatin 40 mg Tablet PO (21:12)
[2024-03-04] MEDS: pantoprazole 40 mg SDV IVP (21:16)
[2024-03-04] MEDS: FUROsemide 10 mg/mL SDV 2mL 20 MG IVP (21:26)
[2024-03-04 22:18] LABS: Bilirubin Urine Negative (Negative); Blood Urine Negative (Negative); Glucose Urine UA Negative (Normal); Ketones Urine Negative (Negative); Leukocyte Esterase Urine Negative (Negative); Nitrate Urine Negative (Negative); Protein Urine Negative (Negative); Specific Gravity, Urine 1.009 (1.005-1.030); Urine Appearance Clear (CLEAR); Urine Color Yellow (Yellow); pH Urine 6.5 (5-7)
[2024-03-04 22:23] LABS: Add Urine Microscopic? YES; Bacteria Urine None Seen /hpf; Hyaline Casts Urine 1.21 /lpf; RBC Urine 0-2 /hpf (0-2); Squamous Epithelial Cell Urine 0-5 /hpf (0-5); WBC Urine 0-5 /hpf (0-5)
[2024-03-04 22:25] LABS: Amphetamines Screen Urine Negative (Negative); Barbiturates Screen Urine Negative (Negative); Benzodiazepines Screen Urine Negative (Negative); Cocaine Screen Urine Negative (Negative); Opiate Screen Urine Negative (Negative); PCP Screen Urine Negative (Negative); THC Screen Urine Negative (Negative)
--- NOTE | 2024-03-04 23:13 | PC.NURSE ---
bp 110/80, second dose of 20mg Lasix to be given
--- NOTE | 2024-03-04 23:32 | ECG_ITS ---
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 Measurements Intervals [place] Rate: 99 P: 52 ND: 136 QRS: -20 QRSD: 93 T: 180 QT: 391 QTc: 502 Interpretive Statements SINUS RHYTHM POSSIBLE LEFT ATRIAL ENLARGEMENT [-0.1mV P-WAVE IN V1/V2] ANTEROSEPTAL MYOCARDIAL INFARCTION , PROBABLY RECENT [40+ ms Q WAVE IN V1-V4] ACUTE GA Compared to ECG 03/04/2024 21:09:34 Sinus tachycardia no longer present Myocardial infarct finding still present Electronically Signed On 03-05-2024 19:38:49 ENERGY CONSERVATION REPRESENTATIVE by Siobhan Gee M.D. [id number]
[2024-03-04 23:35] LABS: Gamma Glutamyl Transferase 21 U/L (8-61)
[2024-03-05] VITALS (16 sets, daily range): BP systolic 89–108; BP diastolic 69–80; PULSE 88–106; RESP 16–28; TEMP 36.4–36.9; O2SAT 92–98
[2024-03-05] MEDS: polyethylene glycol 3350 Pkt 17 gm PO
[2024-03-05] MEDS: FUROsemide 10 mg/mL SDV 2mL 20 MG IVP (00:06)
[2024-03-05 00:08] LABS: Troponin 5 6HR 18.57 ng/L (0-15)
[2024-03-05 00:09] LABS: Troponin 5 6HR Delta -3.43 ng/L (0-12)
[2024-03-05] MEDS: ipratropium-albuterol 3 mL Neb INHALATION ×6 (00:20→20:34)
[2024-03-05 05:15] LABS: Basophils % 0.3 %; Eosinophils # 0.1 10^3/uL (0.0-0.8); Eosinophils % 1.2 %; Hematocrit 33.5 % (37-53); Lymphocytes % 29.4 %; Mean Corpuscular Volume 90.1 fl (82-101); Mean Platelet Volume 10.5 fL (7.4-10.4); Monocytes # 0.6 10^3/uL (0.2-0.9); Monocytes % 5.4 %; Neutrophils # 6.42 10^3/uL (1.8-7.7); Neutrophils % 63.4 %; Nucleated Red Blood Cells % 0 %; Platelet Count 277 10^3/cmm (157-399); Red Blood Count 3.72 10^6/uL (3.85-5.65); Red Cell Distribution Width 15.9 % (12.1-15.1); White Blood Count 10.13 10^3/uL (3.29-11.43)
[2024-03-05 05:31] LABS: Alanine Aminotransferase 61 U/L (0-41); Albumin Level 3.5 g/dL (3.5-5.2); Alkaline Phosphatase 118 U/L (40-130); Aspartate Amino Transferase 55 U/L (0-40); Blood Urea Nitrogen 19 mg/dL (6-20); Carbon Dioxide 22 mmol/L (22-29); Chloride 101 mmol/L (98-107); Creatinine Clr Calc Pharmacy 56.7915; Globulin 2.9 g/dL (1.3-4.6); Glomerular Filtration Rate 48.8 mL/min (90-130); Glucose 97 mg/dL (65-115); Magnesium 1.9 mg/dL (1.7-2.3); Osmolality Calculated 286 mOsm/kg (285-295); Sodium 137 mmol/L (136-145); Total Bilirubin 3.4 mg/dL (0.15-1.2); Total Protein 6.4 g/dL (6.6-8.7)
[2024-03-05 05:41] LABS: NT Pro B Type Natriuretic Pept 8808 pg/mL (0-125)
[2024-03-05] MEDS: budesonide 0.5 mg/2 mL Neb INHALATION ×2 (08:25→20:34)
[2024-03-05] MEDS: aspirin 81 mg EC Tablet PO (08:47)
--- NOTE | 2024-03-05 10:20 | PC.NURSE ---
Called report to Marlen in [facility] - 108
[2024-03-05] MEDS: FUROsemide 10 mg/mL SDV 4mL 40 MG IVP (10:39)
[2024-03-05] MEDS: heparin 5,000 unit/mL INJ 1 mL IVP ×2 (10:39→19:26)
[2024-03-05] MEDS: potassium chloride ER 20 mEq Tablet PO (10:40)
[2024-03-05] MEDS: heparin drip 25,000 UNIT/500 ML PREMIX 23 UNIT IV (10:42)
--- NOTE | 2024-03-05 10:54 | PM.CONSULT ---
Providers/Reason For Consult Consulting Physician/Specialty*: Siobhan Gee MD Reason for Consult*: New onset heart failure Requesting Physician: Dr. Fisher Attending Physician: Kwame Fisher MD Primary Care Provider: Soto Escamilla MD History of Present Illness History of Present Illness This is a very pleasant 53-year-old gentleman is admitted to hospital through the emergency room where he presented with complaints of progressive shortness of breath, cough and some epigastric discomfort.. This patient apparently has been in his baseline state of health up until 2 weeks ago when he started having the symptoms. According to him, the symptoms started rather acutely with a cough, possibly low-grade fever and shortness of breath. The symptoms gradually started getting worse. He was having shortness of breath even with minimal activities. He also was feeling extremely tired and weak. The cough is mostly dry, occasionally bringing up scanty whitish sputum. No hemoptysis. He also has some epigastric discomfort. No diarrhea. No nausea or vomiting. No other associated symptoms. He has no previous history for any cardiac illness. Few months ago, he had an episode of chest pain for which he took 2 sublingual nitro. This patient is known to have chronic neck pain, history of multiple drug abuse. Depressive illness, ADD and? Reactive airway disease. He has a CT of the chest showed a possible bronchopneumonia. Also had features of coronary atherosclerosis. The echocardiogram revealed a severe LV systolic dysfunction with ejection fraction of 15%. Cardiology consult is requested for further cardiac evaluation recommendations. His maternal grandfather had a coronary disease and open heart surgery. Details are not known. His father might have had some heart problems but patient does not know the details. No other line family history. Patient used cocaine many years ago. He been using methamphetamine for 10 years or more which he quit 6 months ago. Currently he smokes cigarettes. No alcohol abuse or any other substance abuse. Review of Systems Narrative: CONSTITUTIONAL: Low-grade fever, generalized weakness/fatigue as mentioned above EYES: No blurring of vision or other visual disturbances lately. ENT: No hoarseness of voice, auditory disturbances or sore throat. CARDIOVASCULAR: As mentioned above. RESPIRATORY: Questionable history of reactive airway disease GASTROINTESTINAL: No hematemesis or melena. GENITOURINARY: No dysuria or hematuria. INTEGUMENTARY: No skin rashes or history of skin cancer. NEURO: History of encephalopathy few years ago PSYCHIATRIC: Depressive illness/ADD HEMATOLOGIC: No bleeding disorders or significant anemia. ENDOCRINE: No history of polyuria or polydipsia. MUSCULOSKELETAL: History of gouty arthritis ALLERGY/IMMUNOLOGY: As mentioned above. Medications/Allergies Home Medications Medication Instructions Recorded Confirmed Last Taken Type pantoprazole 40 mg tablet,delayed 40 mg PO DAILY 07/17/21 03/04/24 06/25/22 History release allopurinol 300 mg tablet 300 mg PO DAILY 03/04/24 03/04/24 Unknown History colchicine 0.6 mg tablet 2 mg PO ONCE PRN gout 03/04/24 03/04/24 Unknown History diazepam 2 mg tablet 2 mg PO DAILY PRN Anxiety 03/04/24 03/04/24 Unknown History naproxen sodium 220 mg capsule 660 mg PO BID PRN Pain 03/04/24 03/04/24 Unknown History nitroglycerin 0.4 mg sublingual 0.4 mg sublingual Q5M PRN Chest 03/04/24 03/04/24 Unknown History tablet Pain ramipril 10 mg capsule 10 mg PO DAILY 03/04/24 03/04/24 Unknown History Allergies Allergy/AdvReac Type Severity Reaction Status Date / Time sulfamethoxazole Allergy SWOLLEN Verified 01/03/24 14:17 [From ] TONGUE trimethoprim [From ] Allergy SWOLLEN Verified 01/03/24 14:17 TONGUE Current Medications Generic Name Dose Route Start Last Admin Trade Name Freq PRN Reason Stop Dose Admin Albuterol/Ipratropium 3 ml 03/04/24 20:00 03/05/24 08:25 Ipratropium-Albuterol 3 Ml Neb INHALATION 3 ml Q4H.RESPIRATORY JUNIOR Administration Aspirin 81 mg 03/04/24 19:31 03/05/24 08:47 Aspirin 81 Mg Ec Tablet PO 81 mg DAILY JUNIOR Administration Atorvastatin Calcium 40 mg 03/04/24 21:00 03/04/24 21:12 Atorvastatin 40 Mg Tablet PO 40 mg BEDTIME JUNIOR Administration Budesonide 0.5 mg 03/04/24 20:00 03/05/24 08:25 Budesonide 0.5 Mg/2 Ml Neb INHALATION 0.5 mg BID.RESPIRATORY JUNIOR Administration Heparin Sodium/Sodium Chloride 25,000 unit in 500 mls @ 0 mls/hr 03/05/24 09:00 03/05/24 10:42 Heparin Drip IV 13.92 unit/kg/hr CONT JUNIOR 23 mls/hr Administration Protocol Per Protocol Pantoprazole Sodium 40 mg 03/04/24 19:31 03/04/24 21:16 Pantoprazole 40 Mg Sdv IVP 40 mg Q24H JUNIOR Administration PFSH Acute PFSH: Medical History Anesthesia complication prolonged sedation after anesthesia 06/26/2022 requiring ICU monitoring but no other intervention, not responsive to narcan; took 5-6 hours to wake up after surgery. Only thing identified is he had not slept for several days prior to surgery. Chronic migraine Depression Prediabetes History of narcotic use with prior pain treatment contract, not using regular narcotic pain control as of 06/26/2022 History of psychiatric care Acute encephalopathy Hypertension GERD (gastroesophageal reflux disease) Hyperlipidemia History of electroencephalogram 11/04/20 This was a normal routine EEG, awake and drowsy and asleep, with no behavioral or electrographic epileptiform activity. This patient was excessively sleepy and was not sleep deprived. Consider a sleep disorder if clinically appropriate. Bipolar disorder Gout [place] tick fever History of Holter monitoring 09/2019 baseline sinus tachycardia with heart rate of 135 bpm, no pauses or bradycardia, diminished heart rate variability 12/2019 baseline sinus rhythm at 94 bpm, symptomatic sinus tachycardia with heart rate 72-126 bpm Psychiatric care Hyperparathyroidism s/p partial parathyroidectomy Bleeding per rectum Had anoscope done by Dr Garcia 08/30/2020 with no fistulae, sinuses, induration, abscess formation or fissures = normal findings Other stimulant dependence, in remission prior methamphetamine use Bilateral renal stones Has seen Dr Bhatti in past, non-obstructive, remote lithotripsy, otherwise monitored for symptoms Cervical disc disease With cervical radiculopathy, spondylosis, spondylosis with myelopathy B12 deficiency 09/2019 Generalized anxiety disorder Cannabis dependence, uncomplicated history, unknown if still using as of 06/26/2022 Carpal tunnel syndrome, left upper limb by nerve conduction study performed 05/2019, has not had surgery as of 06/26/2022 Surgical History Status post cervical discectomy 06/26/2022 Dr Mcghee anterior cervical discectomy C4/C5 with insertion of cage, instrumentation with anterior plate C4-C5, with C4-C7 posterior fusion and instrumentation, use of allograft History of esophagogastroduodenoscopy (EGD) 2015 History of colonoscopy 2015 S/P extracorporeal shock wave therapy History of parathyroidectomy partial, performed by Dr Henderson, never followed-up after surgery History of lumbar laminectomy 09/01/2020 Dr Mcghee L4/5 with bilateral partial facetectomy History of neck surgery 03/24/2020 Dr Mcghee Anterior discectomy with insertion of cage/instrumentation/use of allograft and anterior plate at C5/6 & C6/7 History of cholecystectomy History of knee surgery Left knee arthroscopy 08/[address] Campbell, had MRSA Family History Brother Hypertension Valvular heart disease Grandfather Hypertension History of open heart surgery Father History of open heart surgery Social History Smoking and tobacco/nicotine status: current every day tobacco/nicotine user cigarettes Years cigarettes smoked: 35 Alcohol intake: current Alcohol intake frequency: few times a week Alcohol type: beer Substance/Drug Use: former Household members: other Details: lives with mother who is a former [employer] [facility] [place] [place] nurse Marital status: Current occupational status: unemployed and disabled Vitals/I&O/Wt Last Vital Signs Temp 97.6 F 03/05/24 08:00 Pulse 88 03/05/24 08:20 Resp 17 03/05/24 08:00 BP 106/69 03/05/24 08:00 Pulse Ox 96 03/05/24 08:00 O2 Del Method Nasal Cannula 03/05/24 08:00 O2 Flow Rate 2 03/05/24 08:00 03/04/24 03/05/24 03/05/24 22:59 06:59 14:59 Intake Total 250 / 250 400 / 650 340 / 340 Output Total 475 / 475 3500 / 3975 Balance -225 / -225 -3100 / -3325 340 / 340 Weight last 48 hrs Weight 182 lb 1.6 oz Weight 184 lb 1.6 oz Physical Exam Narrative: GENERAL: The patient is alert and oriented times three. Slightly tachypneic with a respiratory rate of 22/min HEENT: No significant pallor, icterus or lymphadenopathy.Oral cavity: There are no mucous membrane lesions. NECK: Trachea appears to be central. No masses noted. No JVD or thyromegaly appreciated. RESPIRATORY: Chest is symmetrical. No intercostals muscle retraction or any accessory muscle activation. There is no chest wall tenderness. Breath sounds are heard bilaterally. No rales or rhonchi heard. No evidence of any consolidation. Few fine Rales at the base BREASTS: Deferred. HEART: The heart sounds are normal. Soft S3. Short systolic murmur in the lower sternal border. No pericardial rub ABDOMEN: No vessel pulsations or distention. No tenderness. No organomegaly appreciated. Bowel sounds are normally heard. : Deferred. RECTAL: Deferred. LYMPHATIC: No lymphadenopathy noted in the neck. EXTREMITIES: No edema or cyanosis. No clubbing. MUSCULOSKELETAL: No acute joint deformities or swelling SKIN: There are no significant rashes or ecchymosis NEUROPSYCHIATRIC: The patient is alert and oriented x3. Appears to be in a good mood. No tremors or rigidity noted. Urinary Catheter Management: [place]: Cath Placed During This Visit: yes Reason for Continuing Indwelling Catheter: Accurate Measurement of Urinary Output in Critically Ill Patients Urinary Catheter Date of Insertion: 03/04/24 Urinary Catheter Time of Insertion: 22:09 Data 03/06/24 01:30 03/06/24 01:30 Other Labs: Laboratory Last Values WBC 10.13 10^3/uL (3.29-11.43) 03/05/24 04:29 RBC 3.72 10^6/uL (3.85-5.65) L 03/05/24 04:29 Hgb 10.40 g/dL (11.27-16.99) L 03/05/24 04:29 Hct 33.5 % (37-53) L 03/05/24 04:29 MCV 90.1 fl (82-101) 03/05/24 04:29 MCH 28.0 pg (27-33) 03/05/24 04:29 MCHC 31.0 g/dL (30-55) D 03/05/24 04:29 RDW 15.9 % (12.1-15.1) H 03/05/24 04:29 Plt Count 277 10^3/cmm (157-399) 03/05/24 04:29 MPV 10.5 fL (7.4-10.4) H 03/05/24 04:29 Neut % (Auto) 63.4 % 03/05/24 04: Lymph % (Auto) 29.4 % 03/05/24 04:29 [place] % (Auto) 5.4 % 03/05/24 04:29 Eos % (Auto) 1.2 % 03/05/24 04: Baso % (Auto) 0.3 % 03/05/24 04: Neut # (Auto) 6.42 10^3/uL (1.8-7.7) 03/05/24 04: Lymph # (Auto) 3.0 10^3/uL (0.8-4.8) 03/05/24 04: [place] # (Auto) 0.6 10^3/uL (0.2-0.9) 03/05/24 04:29 Eos # (Auto) 0.1 10^3/uL (0.0-0.8) 03/05/24 04: Baso # (Auto) 0.0 10^3/uL (0.0-0.1) 03/05/24 04: Nucleated RBC % (auto) 0 % 03/05/24 04: Nucleated RBCs # 0.0 /100WBC 03/05/24 04:29 PT 16.50 SECONDS (12.1-14.9) H 03/04/24 15:45 INR 1.29 (0.8-1.2) H 03/04/24 15:45 Sodium 137 mmol/L (136-145) 03/05/24 04:29 Potassium 4.0 mmol/L (3.5-5.1) 03/05/24 04:29 Chloride 101 mmol/L (98-107) 03/05/24 04:29 Carbon Dioxide 22 mmol/L (22-29) 03/05/24 04:29 Anion Gap 18.0 (5-19) 03/05/24 04:29 BUN 19 mg/dL (6-20) 03/05/24 04:29 Creatinine 1.5 mg/dL (0.7-1.2) H 03/05/24 04:29 GFR Calculation 48.8 mL/min (90-130) L 03/05/24 04:29 Glucose 97 mg/dL (65-115) 03/05/24 04:29 Estimat Average Glucose 117 03/04/24 20:20 Hemoglobin A1c 5.7 % (4.0-6.0) 03/04/24 20:20 Calculated Osmolality 286 mOsm/kg (285-295) 03/05/24 04:29 Lactic Acid 2.0 mmol/L (0.5-2.2) 03/04/24 17:50 Calcium 9.0 mg/dL (8.5-10.5) 03/05/24 04:29 Phosphorus 4.0 mg/dL (2.5-4.5) 03/05/24 04:29 Magnesium 1.9 mg/dL (1.7-2.3) 03/05/24 04:29 Total Bilirubin 3.4 mg/dL (0.15-1.2) H 03/05/24 04:29 Direct Bilirubin 0.60 mg/dL (0.00-0.30) H 03/04/24 17:50 Indirect Bilirubin 3.90 03/04/24 17:50 GGT 21 U/L (8-61) 03/04/24 17:50 AST 55 U/L (0-40) H 03/05/24 04:29 ALT 61 U/L (0-41) H 03/05/24 04:29 Alkaline Phosphatase 118 U/L (40-130) 03/05/24 04:29 Ammonia 33 umol/L (16-60) 03/04/24 19:08 Creatine Kinase 93 U/L (39-308) 03/04/24 17:50 Troponin T 5th Gen ng/L 18 ng/L (0-15) H 03/05/24 12:30 Troponin T Baseline 22 ng/L (0-15) H 03/04/24 15:45 Troponin T 120 Minute 22.43 ng/L (0-15) H 03/04/24 20:20 Delta Troponin T 0.43 ABS# (0-10) 03/04/24 20:20 Troponin T Hi Sens 6Hr 18.57 ng/L (0-15) H 03/04/24 23:44 Troponin T Hi Sens 6Hr Delta -3.43 ng/L (0-12) L 03/04/24 23:44 C-Reactive Protein 41.0 mg/L (0.0-4.9) H 03/04/24 17:50 NT-Pro-B Natriuret Pep 8808 pg/mL (0-125) H 03/05/24 04:29 Total Protein 6.4 g/dL (6.6-8.7) L 03/05/24 04:29 Albumin 3.5 g/dL (3.5-5.2) 03/05/24 04:29 Globulin 2.9 g/dL (1.3-4.6) 03/05/24 04:29 Triglycerides 67 mg/dL (0-150) 03/04/24 17:50 Cholesterol 129 mg/dL (0-200) 03/04/24 17:50 LDL Cholesterol, Calc 92 mg/dL (50-129) 03/04/24 17:50 HDL Cholesterol 24 mg/dL (60-100) L 03/04/24 17:50 LDL/HDL Ratio 3.83 RATIO (0.00-3.22) H 03/04/24 17:50 Cholesterol/HDL Ratio 5.38 mg/dL (1.0-5.00) H 03/04/24 17:50 Lipase 25 U/L (13-60) 03/04/24 17:50 Procalcitonin 0.13 ng/mL (0-0.5) 03/04/24 17:50 TSH 2.09 uIU/mL (0.27-4.20) 03/04/24 17:50 Urine Color Yellow (Yellow) 03/04/24 22:00 Urine Appearance Clear (CLEAR) 03/04/24 22:00 Urine pH 6.5 (5-7) 03/04/24 22:00 Ur Specific [place] 1.009 (1.005-1.030) 03/04/24 22:00 Urine Protein Negative (Negative) 03/04/24 22:00 Urine Glucose (UA) Negative (Normal) 03/04/24 22:00 Urine Ketones Negative (Negative) 03/04/24 22:00 Urine Blood Negative (Negative) 03/04/24 22:00 Urine Nitrate Negative (Negative) 03/04/24 22:00 Urine Bilirubin Negative (Negative) 03/04/24 22:00 Urine Urobilinogen 1.0 mg/dL (Negative) 03/04/24 22:00 Ur Leukocyte Esterase Negative (Negative) 03/04/24 22:00 Urine RBC 0-2 /hpf (0-2) 03/04/24 22:00 Urine WBC 0-5 /hpf (0-5) 03/04/24 22:00 Ur Squamous Epith Cells 0-5 /hpf (0-5) 03/04/24 22:00 Amorphous Sediment Not Reportable 03/04/24 22:00 Urine Bacteria None seen /hpf (NONE) 03/04/24 22:00 Hyaline Casts 1.21 /lpf 03/04/24 22:00 Urine Opiates Screen Negative ng/mL (Negative) 03/04/24 22:00 Ur Barbiturates Screen Negative ng/mL (Negative) 03/04/24 22:00 Ur Phencyclidine Scrn Negative ng/mL (Negative) 03/04/24 22:00 Ur Amphetamines Screen Negative ng/mL (Negative) 03/04/24 22:00 U Benzodiazepines Scrn Negative ng/mL (Negative) 03/04/24 22:00 Urine Cocaine Screen Negative ng/mL (Negative) 03/04/24 22:00 U Marijuana (THC) Screen Negative ng/mL (Negative) 03/04/24 22:00 Ethyl Alcohol < 10 mg/dL (0-10) 03/04/24 15:45 Coronavirus (PCR) Negative (Negative) 03/04/24 14:32 Hepatitis A IgM Ab Non-reactive (Nonreactive) 03/04/24 15:45 Hep Bs Antigen Non-reactive (Nonreactive) 03/04/24 15:45 Hep Bs Antibody < 3.5 (11.5-1000) L 03/04/24 15:45 Hep B Core Total Ab Non-reactive (Nonreactive) 03/04/24 15:45 Hepatitis C Antibody Non-reactive (Nonreactive) 03/04/24 15:45 HIV 1&2 Ab & HIV 1 Ag Non-reactive (Non-Reactiv) 03/04/24 15:45 HIV 1&2 Antibody Non-reactive (Non-Reactiv) 03/04/24 15:45 Influenza A (PCR) Negative (Negative) 03/04/24 14:32 Influenza Type B (PCR) Negative (Negative) 03/04/24 14:32 RSV (PCR) Negative (Negative) 03/04/24 14:32 Micro: Microbiology 03/04/24 17:56 Blood Culture - Preliminary Blood SPECIMEN COLLECTED 03/04/24 17:50 Blood Culture - Preliminary Blood SPECIMEN COLLECTED Other data: EKG from today, 03/05/2024 Sinus rhythm with possible left atrial enlargement. Poor R wave progression suggesting old anteroseptal NC. Echocardiogram done on 03/04/2024 severe diffuse hypokinesia of the left ventricle with an ejection fraction of around 15%. Mildly ncreased left atrial size. Thickened mitral valve. Mild mitral annular calcification. Mild to moderate mitral valve regurgitation. Thickened aortic valve. [id number] tricuspid valve regurgitation. Estimated pulmonary artery peak systolic pressure 43 mmHg. Mild pulmonary valve regurgitation. There is no pericardial effusion. Compared to the study from 09/12/2019, there is a marked decline in the LV ejection fraction from 55% to 15% A&P Assessment and plan (1) Acute heart failure: Patient has severe LV systolic dysfunction. The etiology of the dysfunction is not clear at this time. He has atherosclerotic changes in the CTA. The EKG is suggestive of old anteroseptal NC. Possibility of him having underlying coronary disease causing LV dysfunction heart failure is a strong consideration. The heart failure may be treated with IV diuretics, afterload reducing agents and other symptomatic measures. Qualifiers: Heart failure type: unspecified Qualified Code(s): I50.9 - Heart failure, unspecified (2) Cardiomyopathy: For further evaluation of the patient is a cardiac status, a right and left heart catheterization with coronary angiogram and possible PCI would be appropriate. We may have to wait till the heart failure is properly treated. Patient may be started on a low-dose of losartan as a bridge to worsen Entresto. Also may care for spironolactone 25 mg p.o. daily, IV Lasix as needed Qualifiers: Cardiomyopathy type: other Qualified Code(s): I42.8 - Other cardiomyopathies (3) Nicotine dependence, cigarettes, uncomplicated: Patient strongly advised to quit smoking. Cardiovascular medications were discussed. (4) Hypertension: Currently normotensive Qualifiers: Hypertension type: primary hypertension Qualified Code(s): I10 - Essential (primary) hypertension (5) Drug abuse in remission: Patient denies any drug intake for the last 6 months?. (6) Elevated bilirubin: Etiology? (7) ZOEY (acute kidney injury): Possibly from low output state Plan Based on the clinical progress and the results of the above, further recommendations will be made. Consider doing a cardiac catheterization tomorrow if the heart failure is properly treated Thank you for the opportunity to evaluate this patient and make these recommendations Coding Level of Care Code 56680 Diagnoses Acute heart failure, unspecified heart failure type I50.9 Heart failure type: unspecified Other cardiomyopathy I42.8 Cardiomyopathy type: other Nicotine dependence, cigarettes, uncomplicated F17.210 Primary hypertension I10 Hypertension type: primary hypertension Drug abuse in remission F19.11 Elevated bilirubin R17 ZOEY (acute kidney injury) N17.9
[2024-03-05] MEDS: morphine 4 mg/mL SDV 1 mL 2 MG IVP (11:55)
--- NOTE | 2024-03-05 12:04 | ECG_ITS ---
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 Measurements Intervals [place] Rate: 92 P: 51 HI: 155 QRS: -11 QRSD: 97 T: 63 QT: 458 QTc: 567 Interpretive Statements SINUS RHYTHM POSSIBLE LEFT ATRIAL ENLARGEMENT [-0.1mV P-WAVE IN V1/V2] ANTEROSEPTAL MYOCARDIAL INFARCTION , PROBABLY RECENT [40+ ms Q WAVE IN V1-V4] ACUTE ND diffuse nonspecific T wave changes Compared to ECG 03/05/2024 00:36:17 No significant changes Electronically Signed On 03-05-2024 19:07:25 PLANT ATTENDANT by Siobhan Gee M.D. [email or web address]
[2024-03-05 12:54] LABS: Troponin T (5th) Once 18 ng/L (0-15)
--- NOTE | 2024-03-05 15:13 | PC.NURSE ---
Patient continues to have severe right lower quadrant pain. Physician aware, 1mg Dilaudid IVP q4h.
[2024-03-05] MEDS: HYDROmorphone 1 mg/mL INJ 1 mL IVP ×2 (15:43→18:11)
--- NOTE | 2024-03-05 16:11 | P.PN_ITS ---
Subjective 2 Subjective: - Patient was examined this morning -He does feel better he tells me, still has shortness of breath, with minimal exertion, no fevers, no chills, no cough -We discussed his echocardiogram finding s, EF down to 15%, discussed his EKG changes, findings concerning for possible coronary artery disease, with ischemic cardiomyopathy, systolic CHF, resulting congestive hepatopathy, renal failure, he voiced understanding, will continue IV antibiotics, consult cardiology, he is agreeable ? Spoke to cardiology, will consult Vitals/I&O/Wt Last Vital Signs Temp 98.0 F 03/05/24 11:31 Pulse 94 03/05/24 11:37 Resp 18 03/05/24 15:43 BP 108/80 03/05/24 11:31 Pulse Ox 94 03/05/24 11:55 O2 Del Method Nasal Cannula 03/05/24 11:37 O2 Flow Rate 2 03/05/24 11:37 03/05/24 03/05/24 03/05/24 06:59 14:59 22:59 Intake Total 400 / 650 700 / 700 Output Total 3500 / 3975 1900 / 1900 Balance -3100 / -3325 -1200 / -1200 Weight last 48 hrs Weight 82.599 kg Weight 83.506 kg Physical Exam 2 Const: COMMON NORMALS: no acute distress and patient oriented x3 OTHER: Jaundiced appearing, Neck/C-Spine: OTHER: JVD Resp: COMMON NORMALS: normal respiratory effort, No retractions and No use of accessory muscles AUSCULTATION: crackles Cardio: COMMON NORMALS: regular rate, regular rhythm, S1 normal heart sound present and S2 normal heart sound present RATE: regular rate RHYTHM: r egular rhythm HEART SOUNDS: S1 normal heart sound present and S2 normal heart sound present GI: COMMON NORMALS: Normal to inspection, nondistended, normoactive bowel sounds present and non-tender Extremity: COMMON NORMALS: no pedal edema Neuro: COMMON NORMALS: patient oriented x3 Psych: COMMON NORMALS: mental status grossly normal Urinary Catheter Management: Moncada: Cath Placed During This Visit: yes Reason for Continuing Indwelling Catheter: Accurate Measurement of Urinary Output in Critically Ill Patients Urinary Catheter Date of Insertion: 03/04/24 Urinary Catheter Time of Insertion: 22:09 Data 03/05/24 04:29 03/05/24 04:29 Micro: Microbiology 03/04/24 17:56 Blood Culture - Preliminary Blood SPECIMEN COLLECTED 03/04/24 17:50 Blood Culture - Preliminary Blood SPECIMEN COLLECTED A&P Assessment and plan (1) Acute hypoxic respiratory failure: (2) Bronchopneumonia: (3) Pyelonephritis: (4) ZOEY (acute kidney injury): (5) Acute heart failure: Qualifiers: Heart failure type: unspecified Qualified Code(s): I50.9 - Heart failure, unspecified (6) Transaminitis: (7) Acute liver failure: (8) Chest pain: Qualifiers: Chest pain type: unspecified Qualified Code(s): R07.9 - Chest pain, unspecified (9) Sepsis: Plan Acute hypoxic respiratory failure ? Likely multifactorial ? From bronchopneumonia ? From systolic CHF, elevated BNP, CT of the chest showing bilateral pleural effusions ? Plan ? Sputum cultures ? Blood cultures ? Rocephin ? Azithromycin ? DuoNeb ? Budesonide ? Monitor respiratory status closely Systolic CHF exacerbation, concern for ischemic cardiomyopathy ? BNP over 11,[address] of the chest showing bilateral pleural effusions -Cardiac echo ? CONCLUSIONS Severe diffuse hypokinesia of the left ventricle with an ejection fraction of around 15%. Mildly ncreased left atrial size. Thickened mitral valve. Mild mitral annular calcification. Mild to moderate mitral valve regurgitation. Thickened aortic valve. Yuyh-di-djnwquus tricuspid valve regurgitation. Estimated pulmonary artery peak systolic pressure 43 mmHg. Mild pulmonary valve regurgitation. There is no pericardial effusion. Compared to the study from 09/12/2019, there is a marked decline in the LV ejection fraction from 55% to 15% ? Fluid restrictions at 1000 cc ? Lasix 40 mg IV push, -3 L, monitor urine output, monitor creatinine ? Cardiology consulted Acute kidney injury ? Creatinine 1.5 ? Likely secondary to sepsis, CHF ? Monitor Will hold off on fluids given BNP over 11,000 Acute liver failure? 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 Liver ultrasound US/US abdomen complete* [id number] IMPRESSION: 1. Macronodular contour of the liver, concerning for cirrhosis. 2. Left hepatic lobe hyperechoic mass, which may represent hemangioma. Further evaluation with contrast enhanced abdomen MRI should be considered in the adequate clinical setting. 3. Bilateral thinning of the renal cortex, suggestive of chronic scarring. ? CT of the abdomen does not show intra or extrahepatic biliary dilatation status post cholecystectomy Complaints of chest pain, NSTEMI, with evidence of ischemic cardiomyopathy as above ? Serial EKGs, serial troponins, telemetry monitoring Schedule aspirin, statin ? Heparin drip Sepsis No sepsis markers but given acute respiratory failure, evidence of mild respiratory distress, elevated WBC count, source of infection pneumonia, with ZOEY, acute liver failure, CHF Full code Lovenox for DVT prophylaxis Spoke to patient, spoke to nursing staff, spoke to cardiology about echocardiogram findings, patient had right upper quadrant pain complaints in the afternoon, switch to IV Dilaudid for pain repeat troponin series, EKG series Attestations 2 Medical Necessity Statement*: Patient requires hospitalization for pneumonia, ischemic cardiomyopathy, CHF, ZOEY, acute liver failure Diagnoses Acute hypoxic respiratory failure J96.01 Bronchopneumonia J18.0 Pyelonephritis N12 ZOEY (acute kidney injury) N17.9 Acute heart failure, unspecified heart failure type I50.9 Heart failure type: unspecified Transaminitis R74.01 Acute liver failure K72.00 Chest pain R07.9 Chest pain type: unspecified Sepsis A41.9
--- NOTE | 2024-03-05 18:09 | CTR_ITS ---
PROCEDURE INFORMATION: Exam: CT Abdomen And Pelvis Without Contrast Exam date and time: 03/05/2024 7:49 PM Age: 53 years old Clinical indication: Other: Ruq pain TECHNIQUE: Imaging protocol: Computed tomography of the abdomen and pelvis without contrast. Radiation optimization: All CT scans at this facility use at least one of these dose optimization techniques: automated exposure control; mA and/or kV adjustment per patient size (includes targeted exams where dose is matched to clinical indication); or iterative reconstruction. COMPARISON: CT angio chest w abd pel w con 03/04/2024 4:47 PM RADIATION DOSE METRICS: Total DLP (mGy-cm): 683.42 FINDINGS: Lungs: Bibasilar atelectasis. Pleural spaces: Small bilateral pleural effusion. Heart: Cardiomegaly Diaphragm: Small hiatal hernia with gastroesophageal reflux . Liver: Stable hepatic cysts from previous Gallbladder and biliary ducts: Gallbladder is surgically absent. No biliary dilatation. Pancreas: Normal. No ductal dilation. Spleen: Normal. No splenomegaly. Adrenal glands: Normal. No mass. Kidneys and ureters: Punctate bilateral nonobstructive renal calculi. Multiple likely benign left renal cysts are present, requiring no further evaluation, as large as 43 mm Stomach and bowel: Colonic diverticulosis is present without diverticulitis. Increased stool within the colon. No dilated bowel. Large amount of food material in the stomach. Appendix: No evidence of appendicitis. Intraperitoneal space: Unremarkable. No free air. No significant fluid collection. Vasculature: Vascular calcification in the aorta and iliac vessels. No aneurysm. Lymph nodes: Unremarkable. No enlarged lymph nodes. Urinary bladder: The bladder is decompressed by a Moncada catheter and not well assessed. Reproductive: Unremarkable as visualized. Bones/joints: Unremarkable. No acute fracture. Soft tissues: Unremarkable. CT/CT abdomen pelvis wo con [id number] IMPRESSION: 1. Small bilateral pleural effusion. 2. Bibasilar atelectasis. 3. Small hiatal hernia with gastroesophageal reflux . 4. Punctate bilateral nonobstructive renal calculi.
[2024-03-05] MEDS: AZITHROMYCIN ADD-Vantage 500 MG in 0.9% NaCl ADD-Vantage 250 ML 250 MG IV (18:15)
[2024-03-05] MEDS: cefTRIAXone 1,000 mg SDV 1000 MG IVP (18:15)
[2024-03-05 19:02] LABS: Partial Thromboplastin Time 46.3 SECONDS (23.9-36.7)
[2024-03-05 19:13] LABS: Alanine Aminotransferase 54 U/L (0-41); Albumin Level 3.7 g/dL (3.5-5.2); Alkaline Phosphatase 125 U/L (40-130); Anion Gap 15.5 (5-19); Aspartate Amino Transferase 32 U/L (0-40); Blood Urea Nitrogen 22 mg/dL (6-20); Calcium 9.2 mg/dL (8.5-10.5); Carbon Dioxide 26 mmol/L (22-29); Chloride 96 mmol/L (98-107); Creatinine Clr Calc Pharmacy 53.2421; Globulin 2.8 g/dL (1.3-4.6); Glomerular Filtration Rate 45.3 mL/min (90-130); Glucose 122 mg/dL (65-115); Osmolality Calculated 283 mOsm/kg (285-295); Potassium 3.5 mmol/L (3.5-5.1); Sodium 134 mmol/L (136-145); Total Bilirubin 2.2 mg/dL (0.15-1.2); Total Protein 6.5 g/dL (6.6-8.7)
[2024-03-05] MEDS: pantoprazole 40 mg SDV IVP (19:26)
[2024-03-05 20:28] LABS: ABG PCO2 33.4 mmHg (35-45); ABG PH Result 7.44 (7.35-7.45); Alveolar-Arterial Oxygen Gradi 3.4 mmHg (5-10); Arterial Blood Gas Hematocrit 34.7 % (42-52); Base Excess ABG -0.8 mmol/L (-2.0-2.0); Blood Gas Allen Test Pos; Blood Gas Operator Identificat 600455; Blood Gas Sample Site Radial, right; Blood Gas Sample Type Arterial; Carboxyhemoglobin 1.5 %THgb (0.4-20.1); HCO3 ABG 22.8 mmol/L (22-26); HGB O2 Sat 93.6 % (95-100); Ionized Calcium Level - ABG 1.1 mmol/L (1.1-1.4); Methemoglobin 0.8 % (0.4-1.5); Oxygen Device ROOM AIR; Oxygen Saturation ABG 95.8; PO2 ABG 80.4 mmHg (80.0-100.0); PO2 FiO2 Ratio Arterial Blood 382; Potassium Level - ABG 3.9 mmol/L (3.5-5.0); Total Hemoglobin 11.3 g/dL (14-18)
[2024-03-05 20:31] LABS: Glucose Point of Care 225 mg/dL (70-110)
[2024-03-05] MEDS: atorvastatin 40 mg Tablet PO (20:48)
[2024-03-05] MEDS: naloxone 0.4 mg/ml SDV IVP (20:49)
[2024-03-05 21:17] LABS: Lactic Sepsis W/Reflex 2.9 mmol/L (0.5-2.2)
[2024-03-05] MEDS: HYDROcodone-acetaminophen 5-325 mg Tablet 1 TAB PO (21:22)
--- NOTE | 2024-03-05 22:13 | PC.NURSE ---
received report on patient, patient is moaning in RUQ pain, appears lethargic, pale, and diaphoretic, O2 sat dropping and patient has to be reminded to take deep breaths through his nose, patient taken for abd/pelvis CT, Dr Zee notified of patient's condition, received orders for stat lactic acid and abg, narcan given per orders, patient more awake with improvement in respiratory status, shortly afterward patient is having severe LUQ pain, Dr Zee notified and received order for prn norco, patient continues to have episodes of pain in RUQ and LUQ, continue to monitor
[2024-03-05 22:38] LABS: Reflex Lactate Order REFLEX LACTIC ORDERD
[2024-03-06] VITALS (30 sets, daily range): BP systolic 95–114; BP diastolic 68–94; PULSE 84–100; RESP 11–33; TEMP 36.4–36.7; O2SAT 82–98
[2024-03-06] MEDS: ipratropium-albuterol 3 mL Neb INHALATION ×6 (00:28→23:35)
[2024-03-06] MEDS: HYDROmorphone 1 mg/mL INJ 1 mL 0.5 MG IVP ×3 (01:50→15:08)
[2024-03-06 02:19] LABS: Basophils % 0.2 %; Eosinophils # 0.2 10^3/uL (0.0-0.8); Eosinophils % 1.9 %; Hematocrit 33.4 % (37-53); Lymphocytes # 1.9 10^3/uL (0.8-4.8); Lymphocytes % 16.9 %; Mean Corpuscular HGB Conc 31.4 g/dL (30-55); Mean Corpuscular Hemoglobin 29.2 pg (27-33); Mean Platelet Volume 10.6 fL (7.4-10.4); Monocytes # 0.5 10^3/uL (0.2-0.9); Neutrophils # 8.68 10^3/uL (1.8-7.7); Neutrophils % 76.6 %; Nucleated Red Blood Cells % 0 %; Platelet Count 273 10^3/cmm (157-399); Red Blood Count 3.59 10^6/uL (3.85-5.65); Red Cell Distribution Width 15.6 % (12.1-15.1); White Blood Count 11.33 10^3/uL (3.29-11.43)
[2024-03-06 02:29] LABS: Partial Thromboplastin Time 54.7 SECONDS (23.9-36.7)
[2024-03-06 02:39] LABS: Alanine Aminotransferase 53 U/L (0-41); Albumin Level 3.9 g/dL (3.5-5.2); Alkaline Phosphatase 135 U/L (40-130); Anion Gap 20.1 (5-19); Aspartate Amino Transferase 32 U/L (0-40); Blood Urea Nitrogen 23 mg/dL (6-20); Calcium 8.9 mg/dL (8.5-10.5); Carbon Dioxide 25 mmol/L (22-29); Chloride 98 mmol/L (98-107); Creatinine Clr Calc Pharmacy 50.1102; Globulin 2.6 g/dL (1.3-4.6); Glomerular Filtration Rate 42.2 mL/min (90-130); Glucose 115 mg/dL (65-115); Magnesium 1.9 mg/dL (1.7-2.3); Osmolality Calculated 293 mOsm/kg (285-295); Phosphorus 3.8 mg/dL (2.5-4.5); Potassium 4.1 mmol/L (3.5-5.1); Sodium 139 mmol/L (136-145); Total Bilirubin 1.5 mg/dL (0.15-1.2); Total Protein 6.5 g/dL (6.6-8.7)
[2024-03-06] MEDS: heparin 5,000 unit/mL INJ 1 mL IVP (03:02)
[2024-03-06 04:55] LABS: NT Pro B Type Natriuretic Pept 3789 pg/mL (0-125); Procalcitonin 0.15 ng/mL (0-0.5)
[2024-03-06] MEDS: HYDROcodone-acetaminophen 5-325 mg Tablet 1 TAB PO ×2 (05:59→12:04)
[2024-03-06] MEDS: aspirin 81 mg EC Tablet PO (07:15)
[2024-03-06] MEDS: heparin drip 25,000 UNIT/500 ML PREMIX 27 UNIT IV (07:17)
[2024-03-06] MEDS: budesonide 0.5 mg/2 mL Neb INHALATION ×2 (07:55→19:14)
--- NOTE | 2024-03-06 08:12 | P.PN_ITS ---
Subjective 2 Subjective: Patient is still short of breath. Creatinine has trended up. Vitals/I&O/Wt Last Vital Signs Temp 97.8 F 03/06/24 07:28 Pulse 84 03/06/24 07:56 Resp 16 03/06/24 07:56 BP 96/68 03/06/24 07:28 Pulse Ox 93 03/06/24 07:56 O2 Del Method Room Air 03/06/24 07:56 O2 Flow Rate 3 03/06/24 05:28 03/05/24 03/06/24 03/06/24 22:59 06:59 14:59 Intake Total 1033.167 / 1733.167 187.917 / 1921.084 108.916 / 108.916 Output Total 1800 / 3700 600 / 4300 Balance -766.833 / -1966.833 -412.083 / -2378.916 108.916 / 108.916 Weight last 48 hrs Weight 182 lb 1.6 oz Weight 182 lb 1.6 oz Weight 184 lb 1.6 oz Physical Exam 2 Narrative: GENERAL: Patient is alert, awake and oriented x3. [] NECK: No jugular vein distension. [] HEENT: No cyanosis. No icterus. No pallor. [] HEART: Regular S1 and S2. No murmur, rub or gallop. [] LUNGS: Diminished air entry bilaterally CENTRAL NERVOUS SYSTEM: Grossly nonfocal. [] EXTREMITIES: Lower extremities with 1+ edema bilaterally. Urinary Catheter Management: Moncada: Cath Placed During This Visit: yes Reason for Continuing Indwelling Catheter: Accurate Measurement of Urinary Output in Critically Ill Patients Urinary Catheter Date of Insertion: 03/04/24 Urinary Catheter Time of Insertion: 22:09 Data 03/06/24 01:30 03/06/24 01:30 Micro: Microbiology 03/04/24 17:56 Blood Culture - Preliminary Blood NEGATIVE TO DATE 03/04/24 17:50 Blood Culture - Preliminary Blood NEGATIVE TO DATE A&P Assessment and plan (1) Acute heart failure: Qualifiers: Heart failure type: unspecified Qualified Code(s): I50.9 - Heart failure, unspecified (2) Cardiomyopathy: Qualifiers: Cardiomyopathy type: other Qualified Code(s): I42.8 - Other cardiomyopathies (3) Nicotine dependence, cigarettes, uncomplicated: (4) Hypertension: Qualifiers: Hypertension type: primary hypertension Qualified Code(s): I10 - Essential (primary) hypertension (5) Drug abuse in remission: (6) Elevated bilirubin: (7) ZOEY (acute kidney injury): Plan We will hold off on cardiac catheterization today as creatinine has worsened. Can hold off on diuretics. Gentle IV fluids. Obtain BMP in evening NPO past midnights. Thank you for involving us with care of this patient. We will continue to follow. Please call with questions. Attestations 2 Medical Necessity Statement*: Care expected to cross 2 midnights. Coding Level of Care Code Acute Code for [facility] Diagnoses Acute heart failure, unspecified heart failure type I50.9 Heart failure type: unspecified Other cardiomyopathy I42.8 Cardiomyopathy type: other Nicotine dependence, cigarettes, uncomplicated F17.210 Primary hypertension I10 Hypertension type: primary hypertension Drug abuse in remission F19.11 Elevated bilirubin R17 ZOEY (acute kidney injury) N17.9
[2024-03-06] MEDS: diphenhydrAMINE 25 mg Capsule PO ×2 (09:42→16:14)
[2024-03-06] MEDS: sodium chloride 0.9% 250 ML 50 ML IV (10:11)
--- NOTE | 2024-03-06 13:27 | P.PN_ITS ---
Subjective 2 Subjective: - Overnight patient had drowsiness, seco ndary to Dilaudid, given Narcan was much more alert awake thereafter Dilaudid dose was adjusted, was switched to hydrocodone -He was seen this morning, his pain is p rimarily in the right upper quadrant in the epigastrium and location, repeat CT scan done yesterday had no acute findings -His abdominal pain is more controlled w e discussed spacing out his Dilaudid continue hydrocodone, he is agreeable -Discussed his creatinine up to 1.7 will start IV fluids, monitoring closely repeat BMP this afternoon -Watch him closely for fluid overload -He denies any chest pain, does still re port shortness of breath with exertion but has significantly improved he tells me at rest Vitals/I&O/Wt Last Vital Signs Temp 98.0 F 03/06/24 12:00 Pulse 93 03/06/24 12:46 Resp 20 H 03/06/24 12:00 BP 112/72 03/06/24 12:00 Pulse Ox 94 03/06/24 12:00 O2 Del Method Nasal Cannula 03/06/24 12:00 O2 Flow Rate 3 03/06/24 05:28 03/05/24 03/06/24 03/06/24 22:59 06:59 14:59 Intake Total 1033.167 / 1733.167 187.917 / 5799.495 1871.516 / 1326.516 Output Total 1800 / 3700 600 / 4300 Balance -766.833 / -1966.833 -412.083 / -2378.916 1326.516 / 1326.516 Weight last 48 hrs Weight 82.599 kg Weight 82.599 kg Weight 83.506 kg Physical Exam 2 Const: COMMON NORMALS: no acute distress and patient oriented x3 Resp: COMMON NORMALS: normal respiratory effort, No retractions, No use of accessory muscles and clear to auscultation bilaterally AUSCULTATION: clear to auscultation bilaterally Cardio: COMMON NORMALS: regular rate, regular rhythm, S1 normal heart sound present and S2 normal heart sound present RATE: regular rate RHYTHM: r egular rhythm HEART SOUNDS: S1 normal heart sound present and S2 normal heart sound present GI: COMMON NORMALS: Normal to inspection, nondistended, normoactive bowel sounds present OTHER: Right upper quadrant tenderness to palpation Extremity: COMMON NORMALS: no pedal edema Neuro: COMMON NORMALS: patient oriented x3 Psych: COMMON NORMALS: mental status grossly normal Urinary Catheter Management: Moncada: Cath Placed During This Visit: yes Reason for Continuing Indwelling Catheter: Accurate Measurement of Urinary Output in Critically Ill Patients Urinary Catheter Date of Insertion: 03/04/24 Urinary Catheter Time of Insertion: 22:09 Data 03/06/24 01:30 03/06/24 01:30 Micro: Microbiology 03/04/24 17:56 Blood Culture - Preliminary Blood NEGATIVE TO DATE 03/04/24 17:50 Blood Culture - Preliminary Blood NEGATIVE TO DATE A&P Assessment and plan (1) Acute hypoxic respiratory failure: (2) Bronchopneumonia: (3) Pyelonephritis: (4) ZOEY (acute kidney injury): (5) Acute heart failure: Qualifiers: Heart failure type: unspecified Qualified Code(s): I50.9 - Heart failure, unspecified (6) Transaminitis: (7) Acute liver failure: (8) Chest pain: Qualifiers: Chest pain type: unspecified Qualified Code(s): R07.9 - Chest pain, unspecified (9) Sepsis: Plan Acute hypoxic respiratory failure ? Likely multifactorial ? From bronchopneumonia ? From systolic CHF, elevated BNP, CT of the chest showing bilateral pleural effusions ? Plan ? Sputum cultures ? Blood cultures ? Rocephin ? Azithromycin ? DuoNeb ? Budesonide ? Monitor respiratory status closely Systolic CHF exacerbation, concern for ischemic cardiomyopathy ? BNP over 11,[address] of the chest showing bilateral pleural effusions -Cardiac echo ? CONCLUSIONS Severe diffuse hypokinesia of the left ventricle with an ejection fraction of around 15%. Mildly ncreased left atrial size. Thickened mitral valve. Mild mitral annular calcification. Mild to moderate mitral valve regurgitation. Thickened aortic valve. Irgp-um-dxglfbdg tricuspid valve regurgitation. Estimated pulmonary artery peak systolic pressure 43 mmHg. Mild pulmonary valve regurgitation. There is no pericardial effusion. Compared to the study from 09/12/2019, there is a marked decline in the LV ejection fraction from 55% to 15% ? Fluid restrictions at 1000 cc ? Creatinine up to 1.7, hold Lasix, -4 L, monitor urine output, monitor creatinine ? Cardiology consulted Acute kidney injury ? Creatinine 1.7 ? Likely secondary to sepsis, CHF, diuresis ? Monitor -Fluid therapy, repeat BMP this afternoon Acute liver failure? 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 Liver ultrasound US/US abdomen complete* [id number] IMPRESSION: 1. Macronodular contour of the liver, concerning for cirrhosis. 2. Left hepatic lobe hyperechoic mass, which may represent hemangioma. Further evaluation with contrast enhanced abdomen MRI should be considered in the adequate clinical setting. 3. Bilateral thinning of the renal cortex, suggestive of chronic scarring. ? CT of the abdomen does not show intra or extrahepatic biliary dilatation status post cholecystectomy Right upper quadrant pain, epigastric pain - CT/CT abdomen pelvis wo con [id number] IMPRESSION: 1. Small bilateral pleural effusion. 2. Bibasilar atelectasis. 3. Small hiatal hernia with gastroesophageal reflux . 4. Punctate bilateral nonobstructive renal calculi. -Continue to monitor closely -Dilaudid 1 mg IV push every 8 hours as needed for pain -Continue hydrocodone -Monitor respiratory status Complaints of chest pain, NSTEMI, with evidence of ischemic cardiomyopathy as above ? Serial EKGs, serial troponins, telemetry monitoring Schedule aspirin, statin ? Heparin drip Sepsis, resolved No sepsis markers but given acute respiratory failure, evidence of mild respiratory distress, elevated WBC count, source of infection pneumonia, with ZOEY, acute liver failure, CHF Full code Lovenox for DVT prophylaxis Spoke to patient, spoke to nursing staff, spoke to cardiology, continue IV antibiotics, continue heparin drip, hold diuresis, IV fluids monitor creatinine Attestations 2 Medical Necessity Statement*: Patient requires hospitalization for ZOEY, NSTEMI, ischemic cardiomyopathy, systolic CHF, acute respiratory failure Diagnoses Acute hypoxic respiratory failure J96.01 Bronchopneumonia J18.0 Pyelonephritis N12 ZOEY (acute kidney injury) N17.9 Acute heart failure, unspecified heart failure type I50.9 Heart failure type: unspecified Transaminitis R74.01 Acute liver failure K72.00 Chest pain R07.9 Chest pain type: unspecified Sepsis A41.9
[2024-03-06 14:35] LABS: Blood Urea Nitrogen 19 mg/dL (6-20); Carbon Dioxide 20 mmol/L (22-29); Creatinine Clr Calc Pharmacy 56.7915; Glomerular Filtration Rate 48.8 mL/min (90-130); Glucose 158 mg/dL (65-115)
[2024-03-06 14:45] LABS: Anion Gap 20.3 (5-19); Chloride 101 mmol/L (98-107); Osmolality Calculated 290 mOsm/kg (285-295); Potassium 4.3 mmol/L (3.5-5.1); Sodium 137 mmol/L (136-145)
[2024-03-06 15:32] LABS: Partial Thromboplastin Time 76.8 SECONDS (23.9-36.7)
[2024-03-06] MEDS: cefTRIAXone 1,000 mg SDV 1000 MG IVP (16:10)
[2024-03-06] MEDS: pantoprazole 40 mg SDV IVP (16:10)
[2024-03-06] MEDS: AZITHROMYCIN ADD-Vantage 500 MG in 0.9% NaCl ADD-Vantage 250 ML 250 MG IV (16:11)
[2024-03-06] MEDS: ondansetron 2 mg/ML SDV 2 mL 4 MG IVP (16:43)
[2024-03-06] MEDS: metoclopramide 5 mg/mL SDV 2 mL IVP (17:20)
--- NOTE | 2024-03-06 17:37 | XRR_ITS ---
PROCEDURE INFORMATION: Exam: XR Abdomen Exam date and time: 03/06/2024 6:31 PM Age: 53 years old Clinical indication: Abdominal pain; Generalized; Additional info: N/v TECHNIQUE: Imaging protocol: Radiologic exam of the abdomen. Views: Frontal supine view of the abdomen. 1 View. COMPARISON: CT abdomen pelvis con [id number] 03/05/2024 7:49 PM FINDINGS: Heart/Mediastinum: Cardiomegaly. Gastrointestinal tract: Mild-moderate colonic stool burden. No dilated loops of bowel seen. Intraperitoneal space: No radiographic evidence of pneumoperitoneum. Organs: Cholecystectomy clips. Bones/joints: No acute abnormality. XR/XR KUB portable [id number] IMPRESSION: Nonobstructive bowel-gas pattern.
[2024-03-06 17:51] LABS: Glucose Point of Care 191 mg/dL (70-110)
[2024-03-06] MEDS: naloxone 0.4 mg/ml SDV IVP (17:58)
[2024-03-06 18:14] LABS: Basophils % 0.1 %; Eosinophils # 0.4 10^3/uL (0.0-0.8); Eosinophils % 4.4 %; Hematocrit 33.2 % (37-53); Lymphocytes # 2.9 10^3/uL (0.8-4.8); Lymphocytes % 32.1 %; Mean Corpuscular HGB Conc 30.4 g/dL (30-55); Mean Corpuscular Hemoglobin 28.1 pg (27-33); Mean Corpuscular Volume 92.5 fl (82-101); Mean Platelet Volume 10.4 fL (7.4-10.4); Monocytes # 0.4 10^3/uL (0.2-0.9); Monocytes % 4.9 %; Neutrophils # 5.28 10^3/uL (1.8-7.7); Neutrophils % 58.3 %; Nucleated Red Blood Cells % 0 %; Platelet Count 272 10^3/cmm (157-399); Red Blood Count 3.59 10^6/uL (3.85-5.65); Red Cell Distribution Width 15.9 % (12.1-15.1); White Blood Count 9.06 10^3/uL (3.29-11.43)
--- NOTE | 2024-03-06 18:24 | PC.NURSE ---
Patient is throwing up. BP low.. He just does not feel good. Zofran given. Informed Dr Fisher received order for Reglan as documented. Patient has had decreased in BP with periods of tachypnea and apnea. Patient abdominal breathing. Dr Fisher placed orders to transfer to ICU. Report called to ITA Santos.
[2024-03-06 18:36] LABS: Lactate (Lactic Acid level) 2.1 mmol/L (0.5-2.2); Troponin(5th) Baseline 18 ng/L (0-15)
--- NOTE | 2024-03-06 18:36 | PC.NURSE ---
arrived from [facility]
[2024-03-06 18:48] LABS: ABG PCO2 36.2 mmHg (35-45); ABG PH Result 7.43 (7.35-7.45); Arterial Blood Gas Hematocrit 31.7 % (42-52); Base Excess ABG -0.3 mmol/L (-2.0-2.0); Blood Gas Allen Test Pos; Blood Gas Operator Identificat CAK; Blood Gas Sample Site Radial, left; Blood Gas Sample Type Arterial; HCO3 ABG 23.8 mmol/L (22-26); Oxygen Device ROOM AIR; PO2 ABG 63.9 mmHg (80.0-100.0); PO2 FiO2 Ratio Arterial Blood 304
[2024-03-06 19:35] LABS: Alanine Aminotransferase 45 U/L (0-41); Albumin Level 3.6 g/dL (3.5-5.2); Alkaline Phosphatase 128 U/L (40-130); Anion Gap 16.9 (5-19); Aspartate Amino Transferase 29 U/L (0-40); Blood Urea Nitrogen 18 mg/dL (6-20); Calcium 9.2 mg/dL (8.5-10.5); Carbon Dioxide 22 mmol/L (22-29); Chloride 100 mmol/L (98-107); Creatinine Clr Calc Pharmacy 53.2421; Globulin 2.7 g/dL (1.3-4.6); Glomerular Filtration Rate 45.3 mL/min (90-130); Glucose 184 mg/dL (65-115); NT Pro B Type Natriuretic Pept 3580 pg/mL (0-125); Osmolality Calculated 287 mOsm/kg (285-295); Phosphorus 3.9 mg/dL (2.5-4.5); Potassium 3.9 mmol/L (3.5-5.1); Sodium 135 mmol/L (136-145); Total Bilirubin 0.8 mg/dL (0.15-1.2); Total Protein 6.3 g/dL (6.6-8.7)
--- NOTE | 2024-03-06 19:36 | ECG_ITS ---
[employer] Test Date: 2024-03-06 Pat Name: Vivek Corral Department: Room: [facility]07 Gender: Male Medical Review Coordinator: : 1970 Requested By: Kwame Fisher Order Number: [id number] Clemencia MD: rPanay Alcocer M.D. Measurements Intervals Kouts Rate: 97 P: 57 CO: 160 QRS: -18 QRSD: 94 T: 37 QT: 376 QTc: 479 Interpretive Statements SINUS RHYTHM POSSIBLE LEFT ATRIAL ENLARGEMENT [-0.1mV P-WAVE IN V1/V2] LOW QRS VOLTAGE IN PRECORDIAL LEADS [QRS DEFLECTION < 1.0 mV IN CHEST LEADS] SEPTAL MYOCARDIAL INFARCTION , OF INDETERMINATE AGE [40+ ms Q WAVE IN V1/V2] Compared to ECG 03/05/2024 12:04:11 Low QRS voltage now present T-wave abnormality no longer present Myocardial infarct finding still present Electronically Signed On 03-09-2024 19:13:41 CARBONATION TESTER by Pranay Alcocer M.D. [id number]
[2024-03-06] MEDS: atorvastatin 40 mg Tablet PO (20:01)
[2024-03-06 21:01] LABS: Troponin 5 2HR 15.14 ng/L (0-15)
[2024-03-06 21:04] LABS: Troponin 5 2HR Delta -2.86 ABS# (0-10)
[2024-03-06 21:26] LABS: Partial Thromboplastin Time 55.9 SECONDS (23.9-36.7)
--- NOTE | 2024-03-06 23:32 | ECG_ITS ---
[facility] Date: 2024-03-06 Pat Name: Vivek Corral Department: Room: [facility]07 Gender: Male Law Office Assistant: : 1970 Requested By: Kwame Fisher Order Number: [id number] Clemencia MD: Pranay Alcocer M.D. Measurements Intervals [place] Rate: 95 P: 59 SD: 168 QRS: -21 QRSD: 94 T: 72 QT: 372 QTc: 470 Interpretive Statements SINUS RHYTHM POSSIBLE LEFT ATRIAL ENLARGEMENT [-0.1mV P-WAVE IN V1/V2] LOW QRS VOLTAGE IN PRECORDIAL LEADS [QRS DEFLECTION < 1.0 mV IN CHEST LEADS] SEPTAL MYOCARDIAL INFARCTION , OF INDETERMINATE AGE [40+ ms Q WAVE IN V1/V2] Compared to ECG 03/06/2024 19:22:59 No significant changes Electronically Signed On 03-09-2024 19:12:08 MEDICAL COLLECTIONS by Pranay Alcocer M.D. [id number]
[2024-03-07] VITALS (39 sets, daily range): BP systolic 83–123; BP diastolic 57–88; PULSE 90–106; RESP 13–33; TEMP 36.4–36.8; O2SAT 72–97
[2024-03-07] MEDS: HYDROmorphone 1 mg/mL INJ 1 mL 0.5 MG IVP ×2 (00:58→16:08)
[2024-03-07 01:55] LABS: Troponin 5 6HR 12.55 ng/L (0-15)
[2024-03-07 02:04] LABS: Troponin 5 6HR Delta -5.45 ng/L (0-12)
[2024-03-07] MEDS: ipratropium-albuterol 3 mL Neb INHALATION ×6 (03:42→23:24)
[2024-03-07] MEDS: heparin drip 25,000 UNIT/500 ML PREMIX 25 UNIT IV (03:45)
[2024-03-07 03:48] LABS: Basophils % 0.1 %; Eosinophils # 0.3 10^3/uL (0.0-0.8); Eosinophils % 3.9 %; Hematocrit 33.9 % (37-53); Lymphocytes # 2.3 10^3/uL (0.8-4.8); Lymphocytes % 29.7 %; Mean Corpuscular HGB Conc 29.8 g/dL (30-55); Mean Corpuscular Hemoglobin 27.6 pg (27-33); Mean Corpuscular Volume 92.6 fl (82-101); Mean Platelet Volume 9.7 fL (7.4-10.4); Monocytes # 0.5 10^3/uL (0.2-0.9); Neutrophils # 4.66 10^3/uL (1.8-7.7); Nucleated Red Blood Cells % 0 %; Platelet Count 282 10^3/cmm (157-399); Red Blood Count 3.66 10^6/uL (3.85-5.65); Red Cell Distribution Width 15.7 % (12.1-15.1); White Blood Count 7.77 10^3/uL (3.29-11.43)
[2024-03-07 04:03] LABS: Partial Thromboplastin Time 61.1 SECONDS (23.9-36.7)
[2024-03-07 04:09] LABS: Alanine Aminotransferase 45 U/L (0-41); Albumin Level 3.9 g/dL (3.5-5.2); Alkaline Phosphatase 135 U/L (40-130); Anion Gap 14.4 (5-19); Aspartate Amino Transferase 25 U/L (0-40); Blood Urea Nitrogen 19 mg/dL (6-20); Calcium 9.5 mg/dL (8.5-10.5); Carbon Dioxide 27 mmol/L (22-29); Chloride 102 mmol/L (98-107); Creatinine Clr Calc Pharmacy 60.8481; Glomerular Filtration Rate 52.8 mL/min (90-130); Glucose 113 mg/dL (65-115); Osmolality Calculated 291 mOsm/kg (285-295); Phosphorus 2.8 mg/dL (2.5-4.5); Potassium 4.4 mmol/L (3.5-5.1); Sodium 139 mmol/L (136-145); Total Bilirubin 0.6 mg/dL (0.15-1.2); Total Protein 6.9 g/dL (6.6-8.7)
[2024-03-07 04:21] LABS: NT Pro B Type Natriuretic Pept 4509 pg/mL (0-125)
[2024-03-07 04:32] LABS: C Reactive Protein 22.7 mg/L (0.0-4.9)
[2024-03-07] MEDS: acetaminophen 325 mg Tablet 650 MG PO ×2 (06:55→21:46)
[2024-03-07] MEDS: aspirin 81 mg EC Tablet PO (08:11)
[2024-03-07] MEDS: budesonide 0.5 mg/2 mL Neb INHALATION ×2 (08:39→20:09)
[2024-03-07] MEDS: polyethylene glycol 3350 Pkt 17 gm PO (09:12)
--- NOTE | 2024-03-07 10:19 | P.PN_ITS ---
Subjective 2 Subjective: Patient has shortness of breath. No significant chest pain. Vitals/I&O/Wt Last Vital Signs Temp 98.2 F 03/07/24 00:00 Pulse 99 03/07/24 08:40 Resp 16 03/07/24 08:40 BP 103/72 03/07/24 08:00 Pulse Ox 93 03/07/24 08:40 O2 Del Method Nasal Cannula 03/07/24 08:40 O2 Flow Rate 2 03/07/24 08:40 03/06/24 03/07/24 03/07/24 22:59 06:59 14:59 Intake Total 814.8 / 2141.316 287.6 / 2428.916 200 / 200 Output Total 550 / 550 700 / 1250 Balance 264.8 / 1591.316 -412.4 / 1178.916 200 / 200 Weight last 48 hrs Weight 196 lb 3.382 oz Weight 182 lb 1.6 oz Physical Exam 2 Narrative: GENERAL: Patient is alert, awake and oriented x3. [] NECK: No jugular vein distension. [] HEENT: No cyanosis. No icterus. No pallor. [] HEART: Regular S1 and S2. No murmur, rub or gallop. [] LUNGS: Diminished air entry bilaterally CENTRAL NERVOUS SYSTEM: Grossly nonfocal. [] EXTREMITIES: Lower extremities with 1+ edema bilaterally. Urinary Catheter Management: Moncada: Cath Placed During This Visit: yes Reason for Continuing Indwelling Catheter: Accurate Measurement of Urinary Output in Critically Ill Patients Urinary Catheter Date of Insertion: 03/04/24 Urinary Catheter Time of Insertion: 22:09 Data 03/07/24 03:39 03/07/24 03:39 A&P Assessment and plan (1) Acute heart failure: Qualifiers: Heart failure type: unspecified Qualified Code(s): I50.9 - Heart failure, unspecified (2) Cardiomyopathy: Qualifiers: Cardiomyopathy type: other Qualified Code(s): I42.8 - Other cardiomyopathies (3) Nicotine dependence, cigarettes, uncomplicated: (4) Hypertension: Qualifiers: Hypertension type: primary hypertension Qualified Code(s): I10 - Essential (primary) hypertension (5) Drug abuse in remission: (6) Elevated bilirubin: (7) ZOEY (acute kidney injury): Plan Creatinine has improved. Patient had breakfast. Plan for right and left heart cath tomorrow. N.p.o. past midnight. Monitor renal function. Gentle diuresis as needed Continue aspirin and statin Thank you for involving us with care of this patient. We will continue to follow. Please call with questions. Attestations 2 Medical Necessity Statement*: Care expected to cross 2 midnights. Coding Level of Care Code Acute Code for [facility] Diagnoses Acute heart failure, unspecified heart failure type I50.9 Heart failure type: unspecified Other cardiomyopathy I42.8 Cardiomyopathy type: other Nicotine dependence, cigarettes, uncomplicated F17.210 Primary hypertension I10 Hypertension type: primary hypertension Drug abuse in remission F19.11 Elevated bilirubin R17 ZOEY (acute kidney injury) N17.9
--- NOTE | 2024-03-07 15:12 | P.PN_ITS ---
Subjective 2 Subjective: Patient was seen this morning, no chest pain overnight, shortness of breath is improving, no lightheadedness, no dizziness does report fatigue and malaise Vitals/I&O/Wt Last Vital Signs Temp 98.2 F 03/07/24 00:00 Pulse 102 H 03/07/24 12:00 Resp 18 03/07/24 12:00 BP 118/84 03/07/24 12:00 Pulse Ox 94 03/07/24 12:00 O2 Del Method Nasal Cannula 03/07/24 11:06 O2 Flow Rate 2 03/07/24 11:06 03/07/24 03/07/24 03/07/24 06:59 14:59 22:59 Intake Total 287.6 / 2428.916 400 / 400 Output Total 700 / 1250 Balance -412.4 / 1178.916 400 / 400 Weight last 48 hrs Weight 89 kg Weight 82.599 kg Physical Exam 2 Const: COMMON NORMALS: no acute distress and patient oriented x3 Neck/C-Spine: COMMON NORMALS: no JVD Resp: COMMON NORMALS: normal respiratory effort, No retractions and No use of accessory muscles AUSCULTATION: wheezes Cardio: COMMON NORMALS: no JVD, regular rate, regular rhythm, S1 normal heart sound present and S2 normal heart sound present RATE: regular rate RHYTHM: regular rhythm HEART SOUNDS: S1 normal heart sound present and S2 normal heart sound present GI: COMMON NORMALS: Normal to inspection, nondistended, normoactive bowel sounds present and non-tender Extremity: COMMON NORMALS: capillary refill normal, no calf tenderness and no pedal edema Neuro: COMMON NORMALS: patient oriented x3 Psych: COMMON NORMALS: mental status grossly normal Urinary Catheter Management: Moncada: Cath Placed During This Visit: yes Reason for Continuing Indwelling Catheter: Accurate Measurement of Urinary Output in Critically Ill Patients Urinary Catheter Date of Insertion: 03/04/24 Urinary Catheter Time of Insertion: 22:09 Data 03/07/24 03:39 03/07/24 03:39 A&P Assessment and plan (1) Acute hypoxic respiratory failure: (2) Bronchopneumonia: (3) Pyelonephritis: (4) ZOEY (acute kidney injury): (5) Acute heart failure: Qualifiers: Heart failure type: unspecified Qualified Code(s): I50.9 - Heart failure, unspecified (6) Transaminitis: (7) Acute liver failure: (8) Chest pain: Qualifiers: Chest pain type: unspecified Qualified Code(s): R07.9 - Chest pain, unspecified (9) Sepsis: Plan Acute hypoxic respiratory failure ? Likely multifactorial ? From bronchopneumonia ? From systolic CHF, elevated BNP, CT of the chest showing bilateral pleural effusions ? Plan ? Sputum cultures ? Blood cultures ? Rocephin ? Azithromycin ? DuoNeb ? Budesonide ? Monitor respiratory status closely Systolic CHF exacerbation, concern for ischemic cardiomyopathy ? BNP over 11,[address] of the chest showing bilateral pleural effusions -Cardiac echo ? CONCLUSIONS Severe diffuse hypokinesia of the left ventricle with an ejection fraction of around 15%. Mildly ncreased left atrial size. Thickened mitral valve. Mild mitral annular calcification. Mild to moderate mitral valve regurgitation. Thickened aortic valve. [id number]-[id number] tricuspid valve regurgitation. Estimated pulmonary artery peak systolic pressure 43 mmHg. Mild pulmonary valve regurgitation. There is no pericardial effusion. Compared to the study from 09/12/2019, there is a marked decline in the LV ejection fraction from 55% to 15% ? Fluid restrictions at 1000 cc ? Creatinine up to 1.1, hold Lasix, -4 L, monitor urine output, monitor creatinine ? Cardiology consulted Acute kidney injury ? Creatinine 1.1 ? Likely secondary to sepsis, CHF, diuresis ? Monitor -Fluid therapy, repeat BMP this afternoon Acute liver failure? 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 Liver ultrasound US/US abdomen complete* [id number] IMPRESSION: 1. Macronodular contour of the liver, concerning for cirrhosis. 2. Left hepatic lobe hyperechoic mass, which may represent hemangioma. Further evaluation with contrast enhanced abdomen MRI should be considered in the adequate clinical setting. 3. Bilateral thinning of the renal cortex, suggestive of chronic scarring. ? CT of the abdomen does not show intra or extrahepatic biliary dilatation status post cholecystectomy Right upper quadrant pain, epigastric pain - CT/CT abdomen pelvis wo con [id number] IMPRESSION: 1. Small bilateral pleural effusion. 2. Bibasilar atelectasis. 3. Small hiatal hernia with gastroesophageal reflux . 4. Punctate bilateral nonobstructive renal calculi. -Continue to monitor closely -Dilaudid 1 mg IV push every 8 hours as needed for pain -Continue hydrocodone -Monitor respiratory status Complaints of chest pain, NSTEMI, with evidence of ischemic cardiomyopathy as above ? Serial EKGs, serial troponins, telemetry monitoring Schedule aspirin, statin ? Heparin drip Sepsis, resolved No sepsis markers but given acute respiratory failure, evidence of mild respiratory distress, elevated WBC count, source of infection pneumonia, with ZOEY, acute liver failure, CHF Full code Lovenox for DVT prophylaxis Plan for today, hold diuresis, monitor creatinine monitor urine output n.p.o. midnight, continue IV antibiotics, heparin drip Attestations 2 Medical Necessity Statement*: Patient requires hospitalization for acute systolic CHF exacerbation, NSTEMI, chest pain, EF 15% Diagnoses Acute hypoxic respiratory failure J96.01 Bronchopneumonia J18.0 Pyelonephritis N12 ZOEY (acute kidney injury) N17.9 Acute heart failure, unspecified heart failure type I50.9 Heart failure type: unspecified Transaminitis R74.01 Acute liver failure K72.00 Chest pain R07.9 Chest pain type: unspecified Sepsis A41.9
[2024-03-07] MEDS: azithromycin 250 mg Tablet PO (16:08)
[2024-03-07] MEDS: cefTRIAXone 1,000 mg SDV 1000 MG IVP (16:09)
[2024-03-07 16:59] LABS: Partial Thromboplastin Time 23.4 SECONDS (23.9-36.7)
--- NOTE | 2024-03-07 18:56 | PC.NURSE ---
PTT dramatically lower than previous labs with no change to heparin drip, ptt redrawn
[2024-03-07] MEDS: pantoprazole 40 mg SDV IVP (20:02)
[2024-03-07] MEDS: heparin 5,000 unit/mL INJ 1 mL IVP (20:02)
[2024-03-07] MEDS: atorvastatin 40 mg Tablet PO (20:02)
[2024-03-08] VITALS (76 sets, daily range): BP systolic 79–139; BP diastolic 52–101; PULSE 91–109; RESP 10–52; TEMP 36.3–36.7; O2SAT 82–100
[2024-03-08 02:05] LABS: Basophils % 0.1 %; Eosinophils # 0.3 10^3/uL (0.0-0.8); Eosinophils % 3.9 %; Hematocrit 34.3 % (37-53); Lymphocytes # 2.2 10^3/uL (0.8-4.8); Mean Corpuscular HGB Conc 29.4 g/dL (30-55); Mean Corpuscular Hemoglobin 28.4 pg (27-33); Mean Corpuscular Volume 96.3 fl (82-101); Mean Platelet Volume 10.4 fL (7.4-10.4); Monocytes # 0.5 10^3/uL (0.2-0.9); Monocytes % 5.9 %; Neutrophils # 4.74 10^3/uL (1.8-7.7); Neutrophils % 61.8 %; Nucleated Red Blood Cells % 0 %; Platelet Count 279 10^3/cmm (157-399); Red Blood Count 3.56 10^6/uL (3.85-5.65); Red Cell Distribution Width 15.8 % (12.1-15.1); White Blood Count 7.67 10^3/uL (3.29-11.43)
[2024-03-08 02:26] LABS: Alanine Aminotransferase 34 U/L (0-41); Albumin Level 3.7 g/dL (3.5-5.2); Alkaline Phosphatase 127 U/L (40-130); Anion Gap 13.8 (5-19); Aspartate Amino Transferase 18 U/L (0-40); Blood Urea Nitrogen 18 mg/dL (6-20); Calcium 9.5 mg/dL (8.5-10.5); Carbon Dioxide 27 mmol/L (22-29); Chloride 104 mmol/L (98-107); Creatinine Clr Calc Pharmacy 67.8812; Globulin 2.6 g/dL (1.3-4.6); Glomerular Filtration Rate 57.5 mL/min (90-130); Glucose 129 mg/dL (65-115); Magnesium 1.9 mg/dL (1.7-2.3); Osmolality Calculated 294 mOsm/kg (285-295); Potassium 4.8 mmol/L (3.5-5.1); Sodium 140 mmol/L (136-145); Total Bilirubin 0.5 mg/dL (0.15-1.2); Total Protein 6.3 g/dL (6.6-8.7)
[2024-03-08 02:47] LABS: C Reactive Protein 20.2 mg/L (0.0-4.9)
[2024-03-08 02:51] LABS: Partial Thromboplastin Time 105.8 SECONDS (23.9-36.7)
[2024-03-08 02:55] LABS: NT Pro B Type Natriuretic Pept 7215 pg/mL (0-125); Procalcitonin 0.07 ng/mL (0-0.5)
[2024-03-08] MEDS: heparin drip 25,000 UNIT/500 ML PREMIX 25 UNIT IV (03:03)
[2024-03-08] MEDS: ipratropium-albuterol 3 mL Neb INHALATION ×4 (03:31→19:50)
[2024-03-08] MEDS: HYDROmorphone 1 mg/mL INJ 1 mL 0.5 MG IVP ×2 (05:20→20:21)
[2024-03-08] MEDS: budesonide 0.5 mg/2 mL Neb INHALATION ×2 (08:00→19:50)
--- NOTE | 2024-03-08 08:36 | W.PM.OPSUD ---
Surgery/Procedure H&P Update DATE OF PROCEDURE: March 08, 2024 DATE H&P PERFORMED: 03/05/24 H&P UPDATE INFORMATION: I have reviewed H&P completed within last 30 days, I have examined patient prior to procedure and No changes to prior documentation PREOP DIAGNOSIS: LV dysfunction/ acute systolic congestive heart failure PRIMARY INDICATION FOR PROCEDURE: LV dysfunction/ acute systolic congestive heart failure PLANNED PROCEDURE: Right heart catheterization/left heart catheterization with possible percutaneous coronary intervention PATIENT REASSESSED PRIOR TO SEDATION, WITH NO CHANGE NOTED: Yes PHYSICAL EXAM: alert, oriented x 3, clear to auscultation bilaterally and regular rate & rhythm AIRWAY EVAL/ANESTHESIA PLAN: normal airway, ASA III, Local Anesthesia, Risks, benefits & alternatives of sedation and/or procedure discussed and Patient agrees to continue as planned ADDITIONAL INFORMATION: Moderate sedation
[2024-03-08 09:17] LABS: Arterial Blood Gas Hematocrit 30.7 % (42-52); Blood Gas Operator Identificat GD; Blood Gas Sample Site Not specified; Blood Gas Sample Type Not specified; Carboxyhemoglobin 1.6 %THgb (0.4-20.1); HGB O2 Sat 91.9 % (95-100); Methemoglobin 0.9 % (0.4-1.5); Oxygen Device ROOM AIR
[2024-03-08 09:20] LABS: Arterial Blood Gas Hematocrit 30.7 % (42-52); Blood Gas Operator Identificat GD; Blood Gas Sample Site Not specified; Blood Gas Sample Type Venous; Carboxyhemoglobin 1.4 %THgb (0.4-20.1); HGB O2 Sat 50.1 % (95-100); Methemoglobin 0.9 % (0.4-1.5); Oxygen Device ROOM AIR
--- NOTE | 2024-03-08 09:51 | PM.PN ---
Subjective Subjective: Patient is short of breath. Coronary angiogram today demonstrated subtotal occlusion of proximal to mid LAD with minimal forward flow. Has distal left circumflex artery stenosis as well. Vitals/I&O/Wt Last Vital Signs Temp 98.1 F 03/08/24 03:00 Pulse 97 03/08/24 08:00 Resp 16 03/08/24 08:00 BP 104/80 03/08/24 08:00 Pulse Ox 92 03/08/24 08:00 O2 Del Method Room Air 03/08/24 08:00 O2 Flow Rate 2 03/08/24 03:00 03/07/24 03/08/24 03/08/24 22:59 06:59 14:59 Intake Total 997.083 / 1397.083 92.917 / 1490.000 Output Total 1100 / 1100 1100 / 2200 1350 / 1350 Balance -102.917 / 297.083 -1007.083 / -710.000 -1350 / -1350 Weight last 48 hrs Weight 186 lb 4.65 oz Weight 196 lb 3.382 oz Physical Exam Narrative: GENERAL: Patient is alert, awake and oriented x3. [] NECK: No jugular vein distension. [] HEENT: No cyanosis. No icterus. No pallor. [] HEART: Regular S1 and S2. No murmur, rub or gallop. [] LUNGS: Diminished air entry bilaterally CENTRAL NERVOUS SYSTEM: Grossly nonfocal. [] EXTREMITIES: Lower extremities with 1+ edema bilaterally. Urinary Catheter Management: Moncada: Cath Placed During This Visit: yes Reason for Continuing Indwelling Catheter: Accurate Measurement of Urinary Output in Critically Ill Patients Urinary Catheter Date of Insertion: 03/04/24 Urinary Catheter Time of Insertion: 22:09 Data 03/09/24 04:47 03/09/24 04:47 A&P Assessment and plan (1) Acute heart failure: Qualifiers: Heart failure type: unspecified Qualified Code(s): I50.9 - Heart failure, unspecified (2) Cardiomyopathy: Qualifiers: Cardiomyopathy type: other Qualified Code(s): I42.8 - Other cardiomyopathies (3) Nicotine dependence, cigarettes, uncomplicated: (4) Hypertension: Qualifiers: Hypertension type: primary hypertension Qualified Code(s): I10 - Essential (primary) hypertension (5) Drug abuse in remission: (6) Elevated bilirubin: (7) ZOEY (acute kidney injury): Plan Coronary angiogram demonstrated subtotal occlusion of proximal to mid LAD with minimal forward flow. This is not acute event no significant chest pain and no significantly elevated troponins. His LVEDP is very high. Patient started becoming short of breath during the procedure. Plan for aggressive diuresis and staged procedure in 2 to 3 days for PCI of left circumflex artery and attempt at revascularization of LAD. Starting metolazone 5mg daily. Lasix 60mg BID. Close I&O's. Monitor renal function. Replace electrolytes as needed. Fluid and salt restriction Will order lifevest. Thank you for involving us with care of this patient. We will continue to follow. Please call with questions. Attestations Medical Necessity Statement*: Care expected to cross 2 midnights. Coding Level of Care Code Acute Code for [facility] Fwd Diagnoses Acute heart failure, unspecified heart failure type I50.9 Heart failure type: unspecified Other cardiomyopathy I42.8 Cardiomyopathy type: other Nicotine dependence, cigarettes, uncomplicated F17.210 Primary hypertension I10 Hypertension type: primary hypertension Drug abuse in remission F19.11 Elevated bilirubin R17 ZOEY (acute kidney injury) N17.9
[2024-03-08 10:12] LABS: Partial Thromboplastin Time 37.9 SECONDS (23.9-36.7)
[2024-03-08] MEDS: metOLazone 5 MG Tablet PO (10:13)
[2024-03-08] MEDS: aspirin 81 mg EC Tablet PO (10:13)
[2024-03-08] MEDS: FUROsemide 10 mg/mL SDV 10mL 60 MG IVP (15:09)
--- NOTE | 2024-03-08 15:18 | P.PN_ITS ---
Subjective 2 Subjective: Patient was seen this morning, status post cardiac cath, denies any chest pain, no palpitations, does report shortness of breath, no abdominal pain Vitals/I&O/Wt Last Vital Signs Temp 98.1 F 03/08/24 03:00 Pulse 100 03/08/24 14:00 Resp 23 H 03/08/24 12:00 BP 87/52 03/08/24 12:00 Pulse Ox 94 03/08/24 12:00 O2 Del Method Room Air 03/08/24 12:00 O2 Flow Rate 2 03/08/24 03:00 03/08/24 03/08/24 03/08/24 06:59 14:59 22:59 Intake Total 92.917 / 1490.000 222 / 222 Output Total 1100 / 2200 5300 / 5300 Balance -1007.083 / -710.000 -5078 / -5078 Weight last 48 hrs Weight 84.5 kg Weight 89 kg Physical Exam 2 Const: COMMON NORMALS: no acute distress and patient oriented x3 Resp: COMMON NORMALS: normal respiratory effort, No retractions and No use of accessory muscles AUSCULTATION: crackles Cardio: COMMON NORMALS: regular rate, regular rhythm, S1 normal heart sound present and S2 normal heart sound present RATE: regular rate RHYTHM: r egular rhythm HEART SOUNDS: S1 normal heart sound present and S2 normal heart sound present GI: COMMON NORMALS: Normal to inspection, nondistended, normoactive bowel sounds present and non-tender Extremity: COMMON NORMALS: no pedal edema Neuro: COMMON NORMALS: patient oriented x3 Psych: COMMON NORMALS: mental status grossly normal Urinary Catheter Management: Moncada: Cath Placed During This Visit: yes Reason for Continuing Indwelling Catheter: Accurate Measurement of Urinary Output in Critically Ill Patients Urinary Catheter Date of Insertion: 03/04/24 Urinary Catheter Time of Insertion: 22:09 Data 03/08/24 01:51 03/08/24 01:51 A&P Assessment and plan (1) Acute hypoxic respiratory failure: (2) Bronchopneumonia: (3) Pyelonephritis: (4) ZOEY (acute kidney injury): (5) Acute heart failure: Qualifiers: Heart failure type: unspecified Qualified Code(s): I50.9 - Heart failure, unspecified (6) Transaminitis: (7) Acute liver failure: (8) Chest pain: Qualifiers: Chest pain type: unspecified Qualified Code(s): R07.9 - Chest pain, unspecified (9) Sepsis: Plan Acute hypoxic respiratory failure ? Likely multifactorial ? From bronchopneumonia ? From systolic CHF, elevated BNP, CT of the chest showing bilateral pleural effusions ? Plan ? Sputum cultures ? Blood cultures ? Rocephin ? Azithromycin ? DuoNeb ? Budesonide ? Monitor respiratory status closely Systolic CHF exacerbation, concern for ischemic cardiomyopathy ? BNP over 11,[address] of the chest showing bilateral pleural effusions -Cardiac echo ? CONCLUSIONS Severe diffuse hypokinesia of the left ventricle with an ejection fraction of around 15%. Mildly ncreased left atrial size. Thickened mitral valve. Mild mitral annular calcification. Mild to moderate mitral valve regurgitation. Thickened aortic valve. [id number] tricuspid valve regurgitation. Estimated pulmonary artery peak systolic pressure 43 mmHg. Mild pulmonary valve regurgitation. There is no pericardial effusion. Compared to the study from 09/12/2019, there is a marked decline in the LV ejection fraction from 55% to 15% ? Fluid restrictions at 1000 cc ? Creatinine up to 1.3, IV diuresis, Lasix 60 IV twice daily monitor urine output monitor creatinine ? Cardiology consulted Acute kidney injury ? Creatinine 1.3 ? Likely secondary to sepsis, CHF, diuresis ? Monitor -Fluid therapy, repeat BMP this afternoon Acute liver failure? 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 Liver ultrasound US/US abdomen complete* [id number] IMPRESSION: 1. Macronodular contour of the liver, concerning for cirrhosis. 2. Left hepatic lobe hyperechoic mass, which may represent hemangioma. Further evaluation with contrast enhanced abdomen MRI should be considered in the adequate clinical setting. 3. Bilateral thinning of the renal cortex, suggestive of chronic scarring. ? CT of the abdomen does not show intra or extrahepatic biliary dilatation status post cholecystectomy Right upper quadrant pain, epigastric pain - CT/CT abdomen pelvis wo con [id number] IMPRESSION: 1. Small bilateral pleural effusion. 2. Bibasilar atelectasis. 3. Small hiatal hernia with gastroesophageal reflux . 4. Punctate bilateral nonobstructive renal calculi. -Continue to monitor closely -Dilaudid 1 mg IV push every 8 hours as needed for pain -Continue hydrocodone -Monitor respiratory status Complaints of chest pain, NSTEMI, with evidence of ischemic cardiomyopathy as above ? Serial EKGs, serial troponins, telemetry monitoring Schedule aspirin, statin ? Heparin drip discontinued Is status post cardiac cath Sepsis, resolved No sepsis markers but given acute respiratory failure, evidence of mild respiratory distress, elevated WBC count, source of infection pneumonia, with ZOEY, acute liver failure, CHF Full code Lovenox for DVT prophylaxis Plan for today, hold diuresis, monitor creatinine monitor urine output n.p.o. midnight, continue IV antibiotics, heparin drip Attestations 2 Medical Necessity Statement*: Patient requires hospitalization for CHF exacerbation requiring IV diuresis, status post cardiac cath will need cardiac intervention on Sunday Diagnoses Acute hypoxic respiratory failure J96.01 Bronchopneumonia J18.0 Pyelonephritis N12 ZOEY (acute kidney injury) N17.9 Acute heart failure, unspecified heart failure type I50.9 Heart failure type: unspecified Transaminitis R74.01 Acute liver failure K72.00 Chest pain R07.9 Chest pain type: unspecified Sepsis A41.9
[2024-03-08] MEDS: acetaminophen 325 mg Tablet 650 MG PO (17:42)
[2024-03-08] MEDS: ALPRAZolam 0.5 mg Tablet 0.25 MG PO (17:42)
[2024-03-08] MEDS: azithromycin 250 mg Tablet PO (17:43)
[2024-03-08] MEDS: cefTRIAXone 1,000 mg SDV 1000 MG IVP (17:43)
[2024-03-08 18:25] LABS: Anion Gap 19.1 (5-19); Blood Urea Nitrogen 19 mg/dL (6-20); Calcium 11.3 mg/dL (8.5-10.5); Carbon Dioxide 30 mmol/L (22-29); Chloride 97 mmol/L (98-107); Creatinine Clr Calc Pharmacy 53.8097; Glomerular Filtration Rate 45.3 mL/min (90-130); Glucose 76 mg/dL (65-115); Osmolality Calculated 293 mOsm/kg (285-295); Potassium 5.1 mmol/L (3.5-5.1); Sodium 141 mmol/L (136-145)
[2024-03-08] MEDS: pantoprazole 40 mg SDV IVP (20:22)
[2024-03-08] MEDS: atorvastatin 40 mg Tablet PO (20:22)
[2024-03-08] MEDS: magnesium sulfate premix 1 GM/100 ML PIGGYBACK IV (22:38)
[2024-03-08] MEDS: heparin 5,000 unit/mL INJ 1 mL 5000 UNIT SUBCUT (22:38)
--- NOTE | 2024-03-08 23:27 | PC.NURSE ---
Mag order: Patient was complaining of 10/10 pain from cramps, Dr. Conde was contacted and gave telephone orders to check magnesium level and administer 1gm mag sulfate IV ONCE.
[2024-03-09] VITALS (61 sets, daily range): BP systolic 86–119; BP diastolic 53–95; PULSE 86–102; RESP 11–29; TEMP 36.3–36.6; O2SAT 85–99; BMI 28.8
[2024-03-09] MEDS: ALPRAZolam 0.5 mg Tablet 0.25 MG PO ×2 (01:57→21:11)
[2024-03-09] MEDS: acetaminophen 325 mg Tablet 650 MG PO ×2 (04:09→21:10)
[2024-03-09 05:09] LABS: Basophils % 0.2 %; Eosinophils # 0.2 10^3/uL (0.0-0.8); Eosinophils % 2.2 %; Hematocrit 39.6 % (37-53); Lymphocytes # 1.5 10^3/uL (0.8-4.8); Lymphocytes % 16.1 %; Mean Corpuscular HGB Conc 31.3 g/dL (30-55); Mean Corpuscular Hemoglobin 28.1 pg (27-33); Mean Corpuscular Volume 89.6 fl (82-101); Mean Platelet Volume 10.3 fL (7.4-10.4); Monocytes # 0.6 10^3/uL (0.2-0.9); Monocytes % 5.9 %; Neutrophils # 7.05 10^3/uL (1.8-7.7); Neutrophils % 75.3 %; Nucleated Red Blood Cells % 0 %; Platelet Count 287 10^3/cmm (157-399); Red Blood Count 4.42 10^6/uL (3.85-5.65); Red Cell Distribution Width 15.3 % (12.1-15.1); White Blood Count 9.37 10^3/uL (3.29-11.43)
[2024-03-09 05:29] LABS: Alanine Aminotransferase 35 U/L (0-41); Albumin Level 4.3 g/dL (3.5-5.2); Alkaline Phosphatase 162 U/L (40-130); Anion Gap 18.3 (5-19); Aspartate Amino Transferase 24 U/L (0-40); Blood Urea Nitrogen 21 mg/dL (6-20); Calcium 10.2 mg/dL (8.5-10.5); Carbon Dioxide 28 mmol/L (22-29); Chloride 96 mmol/L (98-107); Creatinine Clr Calc Pharmacy 60.3024; Globulin 3.2 g/dL (1.3-4.6); Glomerular Filtration Rate 52.8 mL/min (90-130); Glucose 145 mg/dL (65-115); Magnesium 2.3 mg/dL (1.7-2.3); Osmolality Calculated 292 mOsm/kg (285-295); Potassium 4.3 mmol/L (3.5-5.1); Sodium 138 mmol/L (136-145); Total Bilirubin 0.7 mg/dL (0.15-1.2); Total Protein 7.5 g/dL (6.6-8.7)
[2024-03-09 05:41] LABS: NT Pro B Type Natriuretic Pept 5297 pg/mL (0-125)
[2024-03-09] MEDS: HYDROmorphone 1 mg/mL INJ 1 mL 0.5 MG IVP ×2 (07:42→17:25)
--- NOTE | 2024-03-09 09:11 | P.PN_ITS ---
Subjective 2 Subjective: The patient is doing better. Has diuresed very well. Vitals/I&O/Wt Last Vital Signs Temp 97.5 F L 03/09/24 04:30 Pulse 93 03/09/24 06:00 Resp 18 03/09/24 07:56 BP 112/79 03/09/24 04:30 Pulse Ox 95 03/09/24 07:42 O2 Del Method Nasal Cannula 03/09/24 04:30 O2 Flow Rate 2 03/09/24 04:30 03/08/24 03/09/24 03/09/24 22:59 06:59 14:59 Intake Total 522 / 744 100 / 844 Output Total 3050 / 8350 800 / 9150 Balance -2528 / -7606 -700 / -8306 Weight last 48 hrs Weight 178 lb 9.191 oz Weight 178 lb 9.191 oz Weight 186 lb 4.65 oz Physical Exam 2 Narrative: GENERAL: Patient is alert, awake and oriented x3. [] NECK: No jugular vein distension. [] HEENT: No cyanosis. No icterus. No pallor. [] HEART: Regular S1 and S2. No murmur, rub or gallop. [] LUNGS: Diminished air entry bilaterally CENTRAL NERVOUS SYSTEM: Grossly nonfocal. [] EXTREMITIES: Lower extremities with 1+ edema bilaterally. Urinary Catheter Management: Moncada: Cath Placed During This Visit: yes Reason for Continuing Indwelling Catheter: Accurate Measurement of Urinary Output in Critically Ill Patients Urinary Catheter Date of Insertion: 03/04/24 Urinary Catheter Time of Insertion: 22:09 Data 03/10/24 04:37 03/10/24 04:37 A&P Assessment and plan (1) Acute heart failure: Qualifiers: Heart failure type: unspecified Qualified Code(s): I50.9 - Heart failure, unspecified (2) Cardiomyopathy: Qualifiers: Cardiomyopathy type: other Qualified Code(s): I42.8 - Other cardiomyopathies (3) Nicotine dependence, cigarettes, uncomplicated: (4) Hypertension: Qualifiers: Hypertension type: primary hypertension Qualified Code(s): I10 - Essential (primary) hypertension (5) Drug abuse in remission: (6) Elevated bilirubin: (7) ZOEY (acute kidney injury): Plan Patient is feeling better. Creatinine is improving. Plan for PCI of circumflex artery and attempted PCI of subtotally totally occluded LAD. Continue aspirin. We will reduce diuretics for now. Thank you for involving us with care of this patient. We will continue to follow. Please call with questions. Attestations 2 Medical Necessity Statement*: Care expected to cross 2 midnights. Coding Level of Care Code Acute Code for [facility] Fwd Diagnoses Acute heart failure, unspecified heart failure type I50.9 Heart failure type: unspecified Other cardiomyopathy I42.8 Cardiomyopathy type: other Nicotine dependence, cigarettes, uncomplicated F17.210 Primary hypertension I10 Hypertension type: primary hypertension Drug abuse in remission F19.11 Elevated bilirubin R17 ZOEY (acute kidney injury) N17.9
[2024-03-09] MEDS: amoxicillin-clav 875-125 mg Tablet 1 TAB PO ×2 (10:09→17:32)
[2024-03-09] MEDS: aspirin 81 mg EC Tablet PO (10:09)
[2024-03-09] MEDS: metOLazone 5 MG Tablet PO (10:10)
[2024-03-09] MEDS: heparin 5,000 unit/mL INJ 1 mL 5000 UNIT SUBCUT ×2 (10:10→22:23)
[2024-03-09] MEDS: clopidogrel 75 mg Tablet PO (10:10)
[2024-03-09] MEDS: ondansetron 2 mg/ML SDV 2 mL 4 MG IVP (11:51)
--- NOTE | 2024-03-09 12:59 | PC.NURSE ---
7485 I had held his lunch due to nausea and small amount of secretions from vomiting. Now asking for lunch, says his stomach feels like eating. So got patient up into bedside chair and gave lunch tray. Eating well and tolerating it well at this point.
--- NOTE | 2024-03-09 14:08 | P.PN_ITS ---
Subjective 2 Subjective: Patient was seen this morning, he diuresed 9 L yesterday, feels significantly better, denies any chest pain, no palpitations, does report weakness and fatigue Vitals/I&O/Wt Last Vital Signs Temp 97.6 F 03/09/24 12:00 Pulse 96 03/09/24 12:30 Resp 21 H 03/09/24 12:30 BP 96/75 03/09/24 12:30 Pulse Ox 92 03/09/24 12:30 O2 Del Method Room Air 03/09/24 10:00 O2 Flow Rate 2 03/09/24 04:30 03/08/24 03/09/24 03/09/24 22:59 06:59 14:59 Intake Total 522 / 744 100 / 844 240 / 240 Output Total 3050 / 8350 800 / 9150 50 / 50 Balance -2528 / -7606 -700 / -8306 190 / 190 Weight last 48 hrs Weight 81 kg Weight 81 kg Weight 84.5 kg Physical Exam 2 Const: COMMON NORMALS: no acute distress and patient oriented x3 Resp: COMMON NORMALS: normal respiratory effort, No retractions, No use of accessory muscles and clear to auscultation bilaterally AUSCULTATION: clear to auscultation bilaterally Cardio: COMMON NORMALS: regular rate, regular rhythm, S1 normal heart sound present and S2 normal heart sound present RATE: regular rate RHYTHM: r egular rhythm HEART SOUNDS: S1 normal heart sound present and S2 normal heart sound present GI: COMMON NORMALS: Normal to inspection, nondistended, normoactive bowel sounds present and non-tender Extremity: COMMON NORMALS: no pedal edema Neuro: COMMON NORMALS: patient oriented x3 Psych: COMMON NORMALS: mental status grossly normal Urinary Catheter Management: Moncada: Cath Placed During This Visit: yes Reason for Continuing Indwelling Catheter: Accurate Measurement of Urinary Output in Critically Ill Patients Urinary Catheter Date of Insertion: 03/04/24 Urinary Catheter Time of Insertion: 22:09 Data 03/09/24 04:47 03/09/24 04:47 A&P Assessment and plan (1) Acute hypoxic respiratory failure: (2) Bronchopneumonia: (3) Pyelonephritis: (4) ZOEY (acute kidney injury): (5) Acute heart failure: Qualifiers: Heart failure type: unspecified Qualified Code(s): I50.9 - Heart failure, unspecified (6) Transaminitis: (7) Acute liver failure: (8) Chest pain: Qualifiers: Chest pain type: unspecified Qualified Code(s): R07.9 - Chest pain, unspecified (9) Sepsis: Plan Acute hypoxic respiratory failure ? Likely multifactorial ? From bronchopneumonia ? From systolic CHF, elevated BNP, CT of the chest showing bilateral pleural effusions ? Plan ? Sputum cultures ? Blood cultures ? De-escalated to Augmentin ? DuoNeb ? Budesonide ? Monitor respiratory status closely Systolic CHF exacerbation, concern for ischemic cardiomyopathy ? BNP over 11,[address] of the chest showing bilateral pleural effusions -Cardiac echo ? CONCLUSIONS Severe diffuse hypokinesia of the left ventricle with an ejection fraction of around 15%. Mildly ncreased left atrial size. Thickened mitral valve. Mild mitral annular calcification. Mild to moderate mitral valve regurgitation. Thickened aortic valve. [id number]-[id number] tricuspid valve regurgitation. Estimated pulmonary artery peak systolic pressure 43 mmHg. Mild pulmonary valve regurgitation. There is no pericardial effusion. Compared to the study from 09/12/2019, there is a marked decline in the LV ejection fraction from 55% to 15% ? Fluid restrictions at 1000 cc ? Creatinine up to 1.4, IV diuresis, 20 mg IV push Lasix --9 L yesterday ? Cardiology consulted Acute kidney injury ? Creatinine 1.4 ? Likely secondary to sepsis, CHF, diuresis ? Monitor -Fluid therapy, repeat BMP this afternoon Acute liver failure? 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 Liver ultrasound US/US abdomen complete* [id number] IMPRESSION: 1. Macronodular contour of the liver, concerning for cirrhosis. 2. Left hepatic lobe hyperechoic mass, which may represent hemangioma. Further evaluation with contrast enhanced abdomen MRI should be considered in the adequate clinical setting. 3. Bilateral thinning of the renal cortex, suggestive of chronic scarring. ? CT of the abdomen does not show intra or extrahepatic biliary dilatation status post cholecystectomy Right upper quadrant pain, epigastric pain - CT/CT abdomen pelvis wo con [id number] IMPRESSION: 1. Small bilateral pleural effusion. 2. Bibasilar atelectasis. 3. Small hiatal hernia with gastroesophageal reflux . 4. Punctate bilateral nonobstructive renal calculi. -Continue to monitor closely -Dilaudid 1 mg IV push every 8 hours as needed for pain -Continue hydrocodone -Monitor respiratory status Complaints of chest pain, NSTEMI, with evidence of ischemic cardiomyopathy as above ? Serial EKGs, serial troponins, telemetry monitoring Schedule aspirin, statin, Plavix ? Heparin drip discontinued -Cardiac cath showed subtotal occlusion of proximal to mid LAD with minimal forward flow, has distal left circumflex artery stenosis as well -Will need coronary intervention once fluid status improves Sepsis, resolved No sepsis markers but given acute respiratory failure, evidence of mild respiratory distress, elevated WBC count, source of infection pneumonia, with ZOEY, acute liver failure, CHF Full code Lovenox for DVT prophylaxis Plan for today, IV diuresis Attestations 2 Medical Necessity Statement*: Patient requires hospitalization for NSTEMI, CHF, Diagnoses Acute hypoxic respiratory failure J96.01 Bronchopneumonia J18.0 Pyelonephritis N12 ZOEY (acute kidney injury) N17.9 Acute heart failure, unspecified heart failure type I50.9 Heart failure type: unspecified Transaminitis R74.01 Acute liver failure K72.00 Chest pain R07.9 Chest pain type: unspecified Sepsis A41.9
[2024-03-09 15:52] LABS: Anion Gap 21.4 (5-19); Blood Urea Nitrogen 22 mg/dL (6-20); Calcium 10.2 mg/dL (8.5-10.5); Carbon Dioxide 27 mmol/L (22-29); Chloride 94 mmol/L (98-107); Glomerular Filtration Rate 57.5 mL/min (90-130); Glucose 118 mg/dL (65-115); Osmolality Calculated 290 mOsm/kg (285-295); Potassium 4.4 mmol/L (3.5-5.1); Sodium 138 mmol/L (136-145)
[2024-03-09] MEDS: atorvastatin 40 mg Tablet PO (20:22)
[2024-03-09] MEDS: pantoprazole 40 mg SDV IVP (20:22)
[2024-03-10] VITALS (43 sets, daily range): BP systolic 85–122; BP diastolic 62–86; PULSE 88–108; RESP 14–44; TEMP 36.3–37.1; O2SAT 88–100; BMI 27.3
[2024-03-10] MEDS: HYDROmorphone 1 mg/mL INJ 1 mL 0.5 MG IVP ×3 (02:27→18:15)
[2024-03-10 05:08] LABS: Basophils % 0.1 %; Eosinophils # 0.5 10^3/uL (0.0-0.8); Eosinophils % 4.3 %; Hematocrit 43.5 % (37-53); Lymphocytes # 1.9 10^3/uL (0.8-4.8); Lymphocytes % 17.5 %; Mean Corpuscular Hemoglobin 27.7 pg (27-33); Mean Corpuscular Volume 89.3 fl (82-101); Mean Platelet Volume 10.2 fL (7.4-10.4); Monocytes # 0.8 10^3/uL (0.2-0.9); Monocytes % 6.9 %; Neutrophils # 7.75 10^3/uL (1.8-7.7); Neutrophils % 70.8 %; Nucleated Red Blood Cells % 0 %; Platelet Count 414 10^3/cmm (157-399); Red Blood Count 4.87 10^6/uL (3.85-5.65); White Blood Count 10.94 10^3/uL (3.29-11.43)
[2024-03-10 05:29] LABS: Alanine Aminotransferase 32 U/L (0-41); Albumin Level 4.3 g/dL (3.5-5.2); Alkaline Phosphatase 158 U/L (40-130); Aspartate Amino Transferase 27 U/L (0-40); Blood Urea Nitrogen 23 mg/dL (6-20); Calcium 10.6 mg/dL (8.5-10.5); Carbon Dioxide 33 mmol/L (22-29); Chloride 92 mmol/L (98-107); Creatinine Clr Calc Pharmacy 55.0081; Globulin 3.2 g/dL (1.3-4.6); Glomerular Filtration Rate 48.8 mL/min (90-130); Glucose 131 mg/dL (65-115); Magnesium 2.2 mg/dL (1.7-2.3); Osmolality Calculated 283 mOsm/kg (285-295); Sodium 134 mmol/L (136-145); Total Bilirubin 0.8 mg/dL (0.15-1.2); Total Protein 7.5 g/dL (6.6-8.7)
[2024-03-10 05:31] LABS: Anion Gap 13.5 (5-19); Potassium 4.5 mmol/L (3.5-5.1)
[2024-03-10 05:34] LABS: NT Pro B Type Natriuretic Pept 2888 pg/mL (0-125)
--- NOTE | 2024-03-10 06:23 | W.PM.OPSUD ---
Surgery/Procedure H&P Update DATE OF PROCEDURE: March 10, 2024 DATE H&P PERFORMED: 03/05/24 H&P UPDATE INFORMATION: I have reviewed H&P completed within last 30 days, I have examined patient prior to procedure and Changes to prior documentation as noted here CHANGES TO PREVIOUS DOCUMENTATION: Patient had diagnostic cardiac catheterization 2 days back and was found to have subtotal occlusion of proximal LAD and severe stenosis of distal circumflex artery. We did not proceed with PCI as patient was volume overloaded. After diuresis, he is close to be euvolemic. Plan for PCI of LAD and of distal circumflex artery. PREOP DIAGNOSIS: LV dysfunction/ acute systolic congestive heart failure/ Severe CAD PRIMARY INDICATION FOR PROCEDURE: LV dysfunction/ acute systolic congestive heart failure/ Severe CAD PLANNED PROCEDURE: Left heart cath with possible percutaneous coronary intervention PATIENT REASSESSED PRIOR TO SEDATION, WITH NO CHANGE NOTED: Yes PHYSICAL EXAM: alert, oriented x 3 and regular rate & rhythm OTHER PERTINENT EXAM FINDINGS: Diminished air entry bilaterally AIRWAY EVAL/ANESTHESIA PLAN: normal airway, ASA III, Local Anesthesia, Risks, benefits & alternatives of sedation and/or procedure discussed and Patient agrees to continue as planned ADDITIONAL INFORMATION: Moderate sedation
--- NOTE | 2024-03-10 07:38 | PM.MISC ---
Miscellaneous Note Purpose of Documentation: Brief procedure note Note: Succcessful revascularization of subtotally occluded proximal LAD with 1 stent. Successful revascularization of distal left circumflex artery with 1 stent Continue aspirin and plavix for atleast 1 year Guideline directed heart failure medications Hold diuretics for today. Lifevest ordered. Will need repeat echocardiogram in 3 months to assess need for ICD.
[2024-03-10] MEDS: aspirin 81 mg EC Tablet PO (08:22)
[2024-03-10] MEDS: amoxicillin-clav 875-125 mg Tablet 1 TAB PO ×2 (08:22→17:50)
[2024-03-10] MEDS: clopidogrel 75 mg Tablet PO (08:22)
--- NOTE | 2024-03-10 08:24 | PC.NURSE ---
Patient arrived from [employer] at 0719, bedside report received from Tod, Patient ST, 88% on room air, reports no pain, Temperature 98.6. 2L NC applied, patient resting in bed at this time.
--- NOTE | 2024-03-10 09:11 | PC.NURSE ---
Educated patient on restrictions post cath with sheath in place. Patient verbalized understanding.
[2024-03-10 09:49] LABS: Partial Thromboplastin Time 92.4 SECONDS (23.9-36.7)
--- NOTE | 2024-03-10 10:24 | PC.NURSE ---
Notified Dr. Fisher patient complains of sudden onset lower right quadrant pain and leg pain, decrease in BP, pulses present distal to sheath. Verbal order to give ordered Dilaudid.
[2024-03-10 11:48] LABS: Partial Thromboplastin Time 32.8 SECONDS (23.9-36.7)
--- NOTE | 2024-03-10 13:01 | PM.PN ---
Subjective Subjective: Patient doing okay today. Had some lower blood pressure readings thro the night . But overall he dnies chest pain or shortness of breath. Currently has LifeVest in place. Medications: Medication Review Details: Current Medications Acetaminophen (Acetaminophen 325 Mg Tablet) 650 mg PO Q6H PRN PRN Reason: Mild/Mod Pain Or Temp >/= 101 Last Admin: 03/09/24 21:10 Dose: 650 mg Al Hydrox/Mg Hydrox/Simethicone (Zsmy-Pbm-Gxmbjieyu-Maik 30 Ml Udc) 30 ml PO Q15M PRN PRN Reason: INDIGESTION Al Hydrox/Mg Hydrox/Simethicone (Qrqx-Yby-Zgcsdgekv-Maik 30 Ml Udc) 30 ml PO Q15M PRN PRN Reason: INDIGESTION Albuterol/Ipratropium (Ipratropium-Albuterol 3 Ml Neb) 3 ml INHALATION Q4H.RESPIRATORY PRN PRN Reason: SHORTNESS OF BREATH Alprazolam (Alprazolam 0.5 Mg Tablet) 0.25 mg PO TID PRN PRN Reason: ANXIETY Last Admin: 03/09/24 21:11 Dose: 0.25 mg Amoxicillin/Clavulanate Potassium (Amoxicillin-Clav 875-125 Mg Tablet) 1 tab PO BID [facility]; Protocol Last Admin: 03/10/24 08:22 Dose: 1 tab Aspirin (Aspirin 81 Mg Ec Tablet) 81 mg PO DAILY [facility] Last Admin: 03/10/24 08:22 Dose: 81 mg Atorvastatin Calcium (Atorvastatin 40 Mg Tablet) 40 mg PO BEDTIME [facility] Last Admin: 03/09/24 20:22 Dose: 40 mg Atropine Sulfate (Atropine 1 Mg/Ml Sdv 1 Ml) 0.5 mg IVP PRN PRN PRN Reason: Symptomatic bradycardia Budesonide (Budesonide 0.5 Mg/2 Ml Neb) 0.5 mg INHALATION BID.RESPIRATORY PRN PRN Reason: shortness of breath Clopidogrel Bisulfate (Clopidogrel 75 Mg Tablet) 75 mg PO DAILY [facility] Last Admin: 03/10/24 08:22 Dose: 75 mg Heparin Sodium (Porcine) (Heparin 5,000 Unit/Ml Inj 1 Ml) 5,000 unit SUBCUT Q12H [facility] Last Admin: 03/09/24 22:23 Dose: 5,000 unit Hydromorphone HCl (Hydromorphone 1 Mg/Ml Inj 1 Ml) 0.5 mg IVP Q8H PRN PRN Reason: SEVERE PAIN Last Admin: 03/10/24 10:30 Dose: 0.5 mg Magnesium Hydroxide (Magnesium Hydroxide 30 Ml Udc) 30 ml PO DAILY PRN PRN Reason: CONSTIPATION Magnesium Hydroxide (Magnesium Hydroxide 30 Ml Udc) 30 ml PO DAILY PRN PRN Reason: CONSTIPATION Metoclopramide HCl (Metoclopramide 5 Mg/Ml Sdv 2 Ml) 5 mg IVP Q4H PRN PRN Reason: NAUSEA AND VOMITING Last Admin: 03/06/24 17:20 Dose: 5 mg Metolazone (Metolazone 5 Mg Tablet) 5 mg PO DAILY [facility] Last Admin: 03/09/24 10:10 Dose: 5 mg Naloxone HCl (Naloxone 0.4 Mg/Ml Sdv) 0.4 mg IVP PRN PRN PRN Reason: RESPIRATORY RATE < 8/MIN Naloxone HCl (Naloxone 0.4 Mg/Ml Sdv) 0.1 mg IVP Q2M PRN PRN Reason: RESPIRATORY RATE < 8/MIN Nitroglycerin (Nitroglycerin 0.4 Mg Sublingual Tablet) 0.4 mg SUBLINGUAL Q5M PRN PRN Reason: CHEST PAIN Ondansetron HCl (Ondansetron 2 Mg/Ml Sdv 2 Ml) 4 mg IVP Q8H PRN PRN Reason: vomiting, or N/V if npo Last Admin: 03/09/24 11:51 Dose: 4 mg Pantoprazole Sodium (Pantoprazole 40 Mg Sdv) 40 mg IVP Q24H [facility] Last Admin: 03/09/24 20:22 Dose: 40 mg Temazepam (Temazepam 15 Mg Capsule) 15 mg PO BEDTIME PRN PRN Reason: INSOMNIA Vitals/I&O/Wt Last Vital Signs Temp 98.6 F 03/10/24 07:21 Pulse 94 03/10/24 12:00 Resp 17 03/10/24 12:00 BP 91/69 03/10/24 12:00 Pulse Ox 98 03/10/24 12:00 O2 Del Method Nasal Cannula 03/10/24 11:30 O2 Flow Rate 2 03/10/24 11:30 03/09/24 03/10/24 03/10/24 22:59 06:59 14:59 Intake Total 282 / 522 600 / 600 Output Total 1750 / 1800 975 / 2775 Balance -1468 / -1278 -975 / -2253 600 / 600 Weight last 48 hrs Weight 169 lb 12.095 oz Weight 178 lb 9.191 oz Weight 178 lb 9.191 oz Physical Exam Narrative: GENERAL: The patient is alert and oriented times three. Slightly tachypneic with a respiratory rate of 22/min HEENT: No significant pallor, icterus or lymphadenopathy.Oral cavity: There are no mucous membrane lesions. NECK: Trachea appears to be central. No masses noted. No JVD or thyromegaly appreciated. RESPIRATORY: Chest is symmetrical. No intercostals muscle retraction or any accessory muscle activation. There is no chest wall tenderness. Breath sounds are heard bilaterally. No rales or rhonchi heard. No evidence of any consolidation. Few fine Rales at the base BREASTS: Deferred. HEART: The heart sounds are normal. Soft S3. Short systolic murmur in the lower sternal border. No pericardial rub ABDOMEN: No vessel pulsations or distention. No tenderness. No organomegaly appreciated. Bowel sounds are normally heard. : Deferred. RECTAL: Deferred. LYMPHATIC: No lymphadenopathy noted in the neck. EXTREMITIES: The right groin has no hematoma bleeding. MUSCULOSKELETAL: No acute joint deformities or swelling SKIN: Right groin with increased redness NEUROPSYCHIATRIC: The patient is alert and oriented x3. Appears to be in a good mood. No tremors or rigidity noted. Urinary Catheter Management: [place]: Cath Placed During This Visit: yes Reason for Continuing Indwelling Catheter: Accurate Measurement of Urinary Output in Critically Ill Patients Urinary Catheter Date of Insertion: 03/04/24 Urinary Catheter Time of Insertion: 22:09 Data 03/12/24 03:15 03/12/24 03:15 Other Labs: Laboratory Last Values WBC 10.94 10^3/uL (3.29-11.43) 03/10/24 04:37 RBC 4.87 10^6/uL (3.85-5.65) 03/10/24 04:37 Hgb 13.50 g/dL (11.27-16.99) 03/10/24 04:37 Hct 43.5 % (37-53) 03/10/24 04:37 MCV 89.3 fl (82-101) 03/10/24 04:37 MCH 27.7 pg (27-33) 03/10/24 04:37 MCHC 31.0 g/dL (30-55) 03/10/24 04:37 RDW 15.0 % (12.1-15.1) 03/10/24 04:37 Plt Count 414 10^3/cmm (157-399) H D 03/10/24 04:37 MPV 10.2 fL (7.4-10.4) 03/10/24 04:37 Neut % (Auto) 70.8 % 03/10/24 04:37 Lymph % (Auto) 17.5 % 03/10/24 04:37 Reagan % (Auto) 6.9 % 03/10/24 04:37 Eos % (Auto) 4.3 % 03/10/24 04:37 Baso % (Auto) 0.1 % 03/10/24 04:37 Neut # (Auto) 7.75 10^3/uL (1.8-7.7) H 03/10/24 04:37 Lymph # (Auto) 1.9 10^3/uL (0.8-4.8) 03/10/24 04:37 Reagan # (Auto) 0.8 10^3/uL (0.2-0.9) 03/10/24 04:37 Eos # (Auto) 0.5 10^3/uL (0.0-0.8) 03/10/24 04:37 Baso # (Auto) 0.0 10^3/uL (0.0-0.1) 03/10/24 04:37 Nucleated RBC % (auto) 0 % 03/10/24 04:37 Nucleated RBCs # 0.0 /100WBC 03/10/24 04:37 PT 16.50 SECONDS (12.1-14.9) H 03/04/24 15:45 INR 1.29 (0.8-1.2) H 03/04/24 15:45 APTT 32.8 SECONDS (23.9-36.7) D 03/10/24 11:12 Specimen Type Venous 03/08/24 09:10 Sample Site Not specified 03/08/24 09:10 ABG pH 7.43 (7.35-7.45) 03/06/24 18:36 ABG pCO2 36.2 mmHg (35-45) 03/06/24 18:36 ABG pO2 63.9 mmHg (80.0-100.0) L 03/06/24 18:36 ABG PO2/FiO2 Ratio 304 03/06/24 18:36 ABG HCO3 23.8 mmol/L (22-26) 03/06/24 18:36 ABG O2 Saturation 95.8 03/05/24 20:22 ABG Base Excess -0.3 mmol/L (-2.0-2.0) 03/06/24 18:36 Ignacio Test N/a 03/08/24 09:10 A-a O2 Gradient Not Reportable 03/08/24 09:10 Hematocrit 30.7 % (42-52) L 03/08/24 09:10 Hgb O2 Saturation 50.1 % (95-100) L 03/08/24 09:10 Carboxyhemoglobin 1.4 %THgb (0.4-20.1) 03/08/24 09:10 Methemoglobin 0.9 % (0.4-1.5) 03/08/24 09:10 Total Hemoglobin 10.0 g/dL (14-18) L 03/08/24 09:10 Sodium 137.0 mmol/L (131-143) 03/05/24 20:22 Potassium 3.9 mmol/L (3.5-5.0) 03/05/24 20:22 Glucose 214.0 mg/dL (70-115) H 03/05/24 20:22 Ionized Calcium 1.1 mmol/L (1.1-1.4) 03/05/24 20:22 O2 Delivery Device Room air 03/08/24 09:10 FiO2 21.0 % 03/06/24 18:36 Sex Worker Or Escort ID [id number] 03/08/24 09:10 Sodium 134 mmol/L (136-145) L 03/10/24 04:37 Potassium 4.5 mmol/L (3.5-5.1) 03/10/24 04:37 Chloride 92 mmol/L (98-107) L 03/10/24 04:37 Carbon Dioxide 33 mmol/L (22-29) H 03/10/24 04:37 Anion Gap 13.5 (5-19) 03/10/24 04:37 BUN 23 mg/dL (6-20) H 03/10/24 04:37 Creatinine 1.5 mg/dL (0.7-1.2) H 03/10/24 04:37 GFR Calculation 48.8 mL/min (90-130) L 03/10/24 04:37 Glucose 131 mg/dL (65-115) H 03/10/24 04:37 POC Glucose 191 mg/dL (70-110) H 03/06/24 17:49 Estimat Average Glucose 117 03/04/24 20:20 Hemoglobin A1c 5.7 % (4.0-6.0) 03/04/24 20:20 Calculated Osmolality 283 mOsm/kg (285-295) L 03/10/24 04:37 Lactic Acid 2.9 mmol/L (0.5-2.2) H 03/05/24 20:34 Lactic Acid (Sepsis) 2.0 mmol/L (0.5-2.2) 03/05/24 23:34 Lactate 2.1 mmol/L (0.5-2.2) 03/06/24 18:04 Calcium 10.6 mg/dL (8.5-10.5) H 03/10/24 04:37 Phosphorus 2.8 mg/dL (2.5-4.5) 03/07/24 03:39 Magnesium 2.2 mg/dL (1.7-2.3) 03/10/24 04:37 Total Bilirubin 0.8 mg/dL (0.15-1.2) 03/10/24 04:37 Direct Bilirubin 0.60 mg/dL (0.00-0.30) H 03/04/24 17:50 Indirect Bilirubin 3.90 03/04/24 17:50 GGT 21 U/L (8-61) 03/04/24 17:50 AST 27 U/L (0-40) 03/10/24 04:37 ALT 32 U/L (0-41) 03/10/24 04:37 Alkaline Phosphatase 158 U/L (40-130) H 03/10/24 04:37 Ammonia 33 umol/L (16-60) 03/04/24 19:08 Creatine Kinase 93 U/L (39-308) 03/04/24 17:50 Troponin T 5th Gen ng/L 18 ng/L (0-15) H 03/05/24 12:30 Troponin T Baseline 18 ng/L (0-15) H 03/06/24 18:04 Troponin T 120 Minute 15.14 ng/L (0-15) H 03/06/24 20:02 Delta Troponin T -2.86 ABS# (0-10) L 03/06/24 20:02 Troponin T Hi Sens 6Hr 12.55 ng/L (0-15) 03/07/24 01:28 Troponin T Hi Sens 6Hr Delta -5.45 ng/L (0-12) L 03/07/24 01:28 C-Reactive Protein 20.2 mg/L (0.0-4.9) H 03/08/24 01:51 NT-Pro-B Natriuret Pep 2888 pg/mL (0-125) H 03/10/24 04:37 Total Protein 7.5 g/dL (6.6-8.7) 03/10/24 04:37 Albumin 4.3 g/dL (3.5-5.2) 03/10/24 04:37 Globulin 3.2 g/dL (1.3-4.6) 03/10/24 04:37 Triglycerides 67 mg/dL (0-150) 03/04/24 17:50 Cholesterol 129 mg/dL (0-200) 03/04/24 17:50 LDL Cholesterol, Calc 92 mg/dL (50-129) 03/04/24 17:50 HDL Cholesterol 24 mg/dL (60-100) L 03/04/24 17:50 LDL/HDL Ratio 3.83 RATIO (0.00-3.22) H 03/04/24 17:50 Cholesterol/HDL Ratio 5.38 mg/dL (1.0-5.00) H 03/04/24 17:50 Lipase 25 U/L (13-60) 03/04/24 17:50 Procalcitonin 0.07 ng/mL (0-0.5) 03/08/24 01:51 TSH 2.09 uIU/mL (0.27-4.20) 03/04/24 17:50 Urine Color Yellow (Yellow) 03/04/24 22:00 Urine Appearance Clear (CLEAR) 03/04/24 22:00 Urine pH 6.5 (5-7) 03/04/24 22:00 Ur Specific [place] 1.009 (1.005-1.030) 03/04/24 22:00 Urine Protein Negative (Negative) 03/04/24 22:00 Urine Glucose (UA) Negative (Normal) 03/04/24 22:00 Urine Ketones Negative (Negative) 03/04/24 22:00 Urine Blood Negative (Negative) 03/04/24 22:00 Urine Nitrate Negative (Negative) 03/04/24 22:00 Urine Bilirubin Negative (Negative) 03/04/24 22:00 Urine Urobilinogen 1.0 mg/dL (Negative) 03/04/24 22:00 Ur Leukocyte Esterase Negative (Negative) 03/04/24 22:00 Urine RBC 0-2 /hpf (0-2) 03/04/24 22:00 Urine WBC 0-5 /hpf (0-5) 03/04/24 22:00 Ur Squamous Epith Cells 0-5 /hpf (0-5) 03/04/24 22:00 Amorphous Sediment Not Reportable 03/04/24 22:00 Urine Bacteria None seen /hpf (NONE) 03/04/24 22:00 Hyaline Casts 1.21 /lpf 03/04/24 22:00 Urine Opiates Screen Negative ng/mL (Negative) 03/04/24 22:00 Ur Barbiturates Screen Negative ng/mL (Negative) 03/04/24 22:00 Ur Phencyclidine Scrn Negative ng/mL (Negative) 03/04/24 22:00 Ur Amphetamines Screen Negative ng/mL (Negative) 03/04/24 22:00 U Benzodiazepines Scrn Negative ng/mL (Negative) 03/04/24 22:00 Urine Cocaine Screen Negative ng/mL (Negative) 03/04/24 22:00 U Marijuana (THC) Screen Negative ng/mL (Negative) 03/04/24 22:00 Ethyl Alcohol < 10 mg/dL (0-10) 03/04/24 15:45 Coronavirus (PCR) Negative (Negative) 03/04/24 14:32 Hepatitis A IgM Ab Non-reactive (Nonreactive) 03/04/24 15:45 Hep Bs Antigen Non-reactive (Nonreactive) 03/04/24 15:45 Hep Bs Antibody < 3.5 (11.5-1000) L 03/04/24 15:45 Hep B Core Total Ab Non-reactive (Nonreactive) 03/04/24 15:45 Hepatitis C Antibody Non-reactive (Nonreactive) 03/04/24 15:45 HIV 1&2 Ab & HIV 1 Ag Non-reactive (Non-Reactiv) 03/04/24 15:45 HIV 1&2 Antibody Non-reactive (Non-Reactiv) 03/04/24 15:45 Influenza A (PCR) Negative (Negative) 03/04/24 14:32 Influenza Type B (PCR) Negative (Negative) 03/04/24 14:32 RSV (PCR) Negative (Negative) 03/04/24 14:32 Micro: Microbiology 03/04/24 17:56 Blood Culture - Final Blood NO GROWTH AFTER 5 DAYS 03/04/24 17:50 Blood Culture - Final Blood NO GROWTH AFTER 5 DAYS A&P Assessment and plan (1) Atherosclerosis of coronary artery of [place] heart without angina pectoris: Patient is status post PCI of the LAD and circumflex artery. Currently remaining stable. Will continue the dual antiplatelet therapy. Qualifiers: Coronary Disease-Associated Artery/Lesion type: [place] artery Qualified Code(s): I25.10 - Atherosclerotic heart disease of [place] coronary artery without angina pectoris (2) Acute heart failure: Diuretics were on hold due to increase in creatinine. No s/s of fluid overload at this time. May continue the careful IV diuresis Qualifiers: Heart failure type: unspecified Qualified Code(s): I50.9 - Heart failure, unspecified (3) Cardiomyopathy: Patient has livevest. Will continue on the GDMT. May start on the Entresto, since her kidney function is stable Qualifiers: Cardiomyopathy type: other Qualified Code(s): I42.8 - Other cardiomyopathies (4) Nicotine dependence, cigarettes, uncomplicated: Patient strongly advised to quit smoking. Cardiovascular medications were discussed. (5) Hypertension: Currently the blood pressure is in the low normal side. Since he is asymptomatic, may continue on the current measures. Qualifiers: Hypertension type: primary hypertension Qualified Code(s): I10 - Essential (primary) hypertension (6) Elevated bilirubin: Seems to be improving. Continue on the current measures (7) ZOEY (acute kidney injury): Possibly from low output stateas. The BUN and creatinine is returning to normal Plan Plan is to continue monitoring. Possibly discharge home tomorrow. May continue on the losartan, if the blood pressure is stable. Consider Entresto as an outpatient Attestations Medical Necessity Statement*: Possible discharge home tomorrow Coding Level of Care Code 82895 Diagnoses Atherosclerosis of [place] coronary artery of [place] heart without angina pectoris I25.10 Coronary Disease-Associated Artery/Lesion type: [place] artery Acute heart failure, unspecified heart failure type I50.9 Heart failure type: unspecified Other cardiomyopathy I42.8 Cardiomyopathy type: other Nicotine dependence, cigarettes, uncomplicated F17.210 Primary hypertension I10 Hypertension type: primary hypertension Elevated bilirubin R17 ZOEY (acute kidney injury) N17.9
[2024-03-10] MEDS: heparin 5,000 unit/mL INJ 1 mL 5000 UNIT SUBCUT ×2 (14:28→23:05)
--- NOTE | 2024-03-10 14:54 | USR_ITS ---
PROCEDURE INFORMATION: Exam: US Abdomen; Limited Exam date and time: 03/10/2024 3:56 PM Age: 53 years old Clinical indication: Abdominal pain; Generalized; Additional info: Look for portal amrit thrombus, hepatic flow, stones TECHNIQUE: Imaging protocol: Real time ultrasound of the abdomen with image documentation. Limited exam focused on the region of clinical interest. COMPARISON: US abdomen complete* [id number] 03/04/2024 8:27 PM FINDINGS: Liver: Unchanged hepatic cysts. No other hepatic abnormality identified on this ultrasound. Gallbladder: Cholecystectomy. No abnormalities in the gallbladder fossa. Biliary ducts: Normal-appearing bile ducts. Pancreas: Pancreas mostly obscured by bowel gas. Right kidney: Right kidney not evaluated. Aorta: Abdominal aorta mostly obscured by bowel gas. Inferior vena cava: IVC not evaluated. Portal venous: Normal hepatopetal flow in the portal vein. US/US liver [id number] IMPRESSION: No acute findings.
--- NOTE | 2024-03-10 14:54 | USR_ITS ---
PROCEDURE INFORMATION: Exam: US Retroperitoneal, Complete, Kidneys and Bladder Exam date and time: 03/10/2024 4:07 PM Age: 53 years old Clinical indication: Abdominal pain; Generalized TECHNIQUE: Imaging protocol: Real-time ultrasound of the retroperitoneum with image documentation. Complete exam focused on the bilateral kidneys and urinary bladder. COMPARISON: US liver [id number] 03/10/2024 3:56 PM FINDINGS: Right kidney: A few hypoechoic lesions. Some are cysts. Others are indeterminate. A few nonobstructing calculi. Otherwise, unremarkable No hydronephrosis. Left kidney: A few hypoechoic lesions. Some are cysts. Others are indeterminate. A few nonobstructing calculi. Otherwise, unremarkable. No hydronephrosis. Urinary bladder: Not evaluated. US/US renal BI* [id number] IMPRESSION: 1. A few hypoechoic lesions in both kidneys. Some are cysts. Others are indeterminate. Recommend contrast-enhanced MRI of the kidneys for these. 2. Several small nonobstructing renal calculi bilaterally. 3. Otherwise, unremarkable kidneys.
--- NOTE | 2024-03-10 14:56 | P.PN_ITS ---
Subjective 2 Subjective: Patient was seen this morning, seen after his cardiac catheterization procedure, denies any chest pain, no palpitations, no shortness of breath, he does complain of right upper quadrant pain, had complaints of this last night, he tells that this pain has abated, but it quickly returning, no nausea, no vomiting, he status post cholecystectomy, Vitals/I&O/Wt Last Vital Signs Temp 98.6 F 03/10/24 07:21 Pulse 94 03/10/24 12:00 Resp 17 03/10/24 12:00 BP 91/69 03/10/24 12:00 Pulse Ox 98 03/10/24 12:00 O2 Del Method Nasal Cannula 03/10/24 11:30 O2 Flow Rate 2 03/10/24 11:30 03/09/24 03/10/24 03/10/24 22:59 06:59 14:59 Intake Total 282 / 522 600 / 600 Output Total 1750 / 1800 975 / 2775 Balance -1468 / -1278 -975 / -2253 600 / 600 Weight last 48 hrs Weight 77 kg Weight 81 kg Weight 81 kg Physical Exam 2 Const: COMMON NORMALS: no acute distress and patient oriented x3 Resp: COMMON NORMALS: normal respiratory effort, No retractions, No use of accessory muscles and clear to auscultation bilaterally AUSCULTATION: clear to auscultation bilaterally Cardio: COMMON NORMALS: regular rate, regular rhythm, S1 normal heart sound present and S2 normal heart sound present RATE: regular rate RHYTHM: r egular rhythm HEART SOUNDS: S1 normal heart sound present and S2 normal heart sound present GI: COMMON NORMALS: Normal to inspection, nondistended, normoactive bowel sounds present OTHER: Does have some right upper quadrant tenderness to palpation Extremity: COMMON NORMALS: no pedal edema Neuro: COMMON NORMALS: patient oriented x3 Psych: COMMON NORMALS: mental status grossly normal Urinary Catheter Management: Moncada: Cath Placed During This Visit: yes Reason for Continuing Indwelling Catheter: Accurate Measurement of Urinary Output in Critically Ill Patients Urinary Catheter Date of Insertion: 03/04/24 Urinary Catheter Time of Insertion: 22:09 Data 03/10/24 04:37 03/10/24 04:37 Micro: Microbiology 03/04/24 17:56 Blood Culture - Final Blood NO GROWTH AFTER 5 DAYS 11/26/24 17:50 Blood Culture - Final Blood NO GROWTH AFTER 5 DAYS A&P Assessment and plan (1) Acute hypoxic respiratory failure: (2) Bronchopneumonia: (3) Pyelonephritis: (4) ZOEY (acute kidney injury): (5) Acute heart failure: Qualifiers: Heart failure type: unspecified Qualified Code(s): I50.9 - Heart failure, unspecified (6) Transaminitis: (7) Acute liver failure: (8) Chest pain: Qualifiers: Chest pain type: unspecified Qualified Code(s): R07.9 - Chest pain, unspecified (9) Sepsis: Plan Acute hypoxic respiratory failure ? Likely multifactorial ? From bronchopneumonia ? From systolic CHF, elevated BNP, CT of the chest showing bilateral pleural effusions ? Plan - -15 L, hold diuretics for now ? Sputum cultures ? Blood cultures ? De-escalated to Augmentin ? DuoNeb ? Budesonide ? Monitor respiratory status closely Systolic CHF exacerbation, concern for ischemic cardiomyopathy ? BNP over 11,[address] of the chest showing bilateral pleural effusions -Cardiac echo ? CONCLUSIONS Severe diffuse hypokinesia of the left ventricle with an ejection fraction of around 15%. Mildly ncreased left atrial size. Thickened mitral valve. Mild mitral annular calcification. Mild to moderate mitral valve regurgitation. Thickened aortic valve. [id number] tricuspid valve regurgitation. Estimated pulmonary artery peak systolic pressure 43 mmHg. Mild pulmonary valve regurgitation. There is no pericardial effusion. Compared to the study from 09/12/2019, there is a marked decline in the LV ejection fraction from 55% to 15% ? Fluid restrictions at 1000 cc ? Creatinine up to 1.4, diuresis on hold --15 L This will work on the LifeVest ? Cardiology consulted Acute kidney injury ? Creatinine 1.4 ? Likely secondary to sepsis, CHF, diuresis ? Monitor -Fluid therapy, repeat BMP this afternoon Acute liver failure? 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 Liver ultrasound US/US abdomen complete* [id number] IMPRESSION: 1. Macronodular contour of the liver, concerning for cirrhosis. 2. Left hepatic lobe hyperechoic mass, which may represent hemangioma. Further evaluation with contrast enhanced abdomen MRI should be considered in the adequate clinical setting. 3. Bilateral thinning of the renal cortex, suggestive of chronic scarring. ? CT of the abdomen does not show intra or extrahepatic biliary dilatation status post cholecystectomy Right upper quadrant pain, epigastric pain - CT/CT abdomen pelvis wo con [id number] IMPRESSION: 1. Small bilateral pleural effusion. 2. Bibasilar atelectasis. 3. Small hiatal hernia with gastroesophageal reflux . 4. Punctate bilateral nonobstructive renal calculi. -Continue to monitor closely -Dilaudid 1 mg IV push every 8 hours as needed for pain -Continue hydrocodone -Monitor respiratory status -As patient continues to complain of right upper quadrant pain, repeat liver ultrasound to look at portal vein flow, ultrasound kidneys Complaints of chest pain, NSTEMI, with evidence of ischemic cardiomyopathy as above ? Serial EKGs, serial troponins, telemetry monitoring Schedule aspirin, statin, Plavix ? Heparin drip discontinued -Status post drug-eluting stent to left circumflex, LAD Sepsis, resolved No sepsis markers but given acute respiratory failure, evidence of mild respiratory distress, elevated WBC count, source of infection pneumonia, with ZOEY, acute liver failure, CHF Full code Lovenox for DVT prophylaxis Plan for today, monitor urine output ultrasound liver, ultrasound kidney Attestations 2 Medical Necessity Statement*: Patient requires hospitalization for NSTEMI status post cardiac cath Diagnoses Acute hypoxic respiratory failure J96.01 Bronchopneumonia J18.0 Pyelonephritis N12 ZOEY (acute kidney injury) N17.9 Acute heart failure, unspecified heart failure type I50.9 Heart failure type: unspecified Transaminitis R74.01 Acute liver failure K72.00 Chest pain R07.9 Chest pain type: unspecified Sepsis A41.9
--- NOTE | 2024-03-10 15:05 | PC.NURSE ---
Life vest: Correspondence via telephone with Allison ([phone]) for life vest, all requested paper work sent via fax([phone]). Awaiting verification process at this time.
[2024-03-10] MEDS: pantoprazole 40 mg SDV IVP (20:00)
[2024-03-10] MEDS: atorvastatin 40 mg Tablet PO (20:00)
[2024-03-11] VITALS (46 sets, daily range): BP systolic 85–125; BP diastolic 63–90; PULSE 88–106; RESP 12–27; TEMP 36.9–37; O2SAT 90–98
[2024-03-11] MEDS: HYDROmorphone 1 mg/mL INJ 1 mL 0.5 MG IVP ×2 (04:05→15:30)
[2024-03-11 04:19] LABS: Basophils % 0.2 %; Eosinophils # 0.3 10^3/uL (0.0-0.8); Eosinophils % 2.9 %; Hematocrit 42.1 % (37-53); Lymphocytes # 1.6 10^3/uL (0.8-4.8); Lymphocytes % 14.6 %; Mean Corpuscular HGB Conc 31.4 g/dL (30-55); Mean Corpuscular Hemoglobin 27.6 pg (27-33); Mean Corpuscular Volume 87.9 fl (82-101); Mean Platelet Volume 10.1 fL (7.4-10.4); Monocytes # 0.5 10^3/uL (0.2-0.9); Monocytes % 5.1 %; Neutrophils # 8.18 10^3/uL (1.8-7.7); Neutrophils % 76.9 %; Nucleated Red Blood Cells % 0 %; Platelet Count 420 10^3/cmm (157-399); Red Blood Count 4.79 10^6/uL (3.85-5.65); Red Cell Distribution Width 14.7 % (12.1-15.1); White Blood Count 10.63 10^3/uL (3.29-11.43)
[2024-03-11 04:44] LABS: Alanine Aminotransferase 25 U/L (0-41); Alkaline Phosphatase 143 U/L (40-130); Anion Gap 13.8 (5-19); Aspartate Amino Transferase 22 U/L (0-40); Blood Urea Nitrogen 25 mg/dL (6-20); C Reactive Protein 10.1 mg/L (0.0-4.9); Calcium 10.3 mg/dL (8.5-10.5); Carbon Dioxide 29 mmol/L (22-29); Chloride 93 mmol/L (98-107); Creatinine Clr Calc Pharmacy 58.9373; Glomerular Filtration Rate 52.8 mL/min (90-130); Glucose 182 mg/dL (65-115); Osmolality Calculated 283 mOsm/kg (285-295); Phosphorus 2.2 mg/dL (2.5-4.5); Potassium 3.8 mmol/L (3.5-5.1); Sodium 132 mmol/L (136-145); Total Bilirubin 0.7 mg/dL (0.15-1.2)
[2024-03-11 04:50] LABS: NT Pro B Type Natriuretic Pept 3045 pg/mL (0-125)
[2024-03-11 04:56] LABS: NT Pro B Type Natriuretic Pept 3347 pg/mL (0-125); Procalcitonin 0.08 ng/mL (0-0.5)
[2024-03-11 05:06] LABS: Gamma Glutamyl Transferase 27 U/L (8-61); Lipase 57 U/L (13-60)
[2024-03-11] MEDS: amoxicillin-clav 875-125 mg Tablet 1 TAB PO ×2 (08:08→17:42)
[2024-03-11] MEDS: aspirin 81 mg EC Tablet PO (08:08)
[2024-03-11] MEDS: clopidogrel 75 mg Tablet PO (08:08)
[2024-03-11] MEDS: acetaminophen 325 mg Tablet 650 MG PO ×2 (09:24→20:23)
--- NOTE | 2024-03-11 11:26 | PC.NURSE ---
Patient's puncture site from cath procedure on the right groin looked red and was warm. Dr. Fisher was notified and he ordered to keep monitoring.
[2024-03-11] MEDS: heparin 5,000 unit/mL INJ 1 mL 5000 UNIT SUBCUT ×2 (11:44→23:10)
--- NOTE | 2024-03-11 15:17 | P.PN_ITS ---
Subjective 2 Subjective: patient was seen this morning he is sititng up in a chair, his blood pressure are soft, denies lightheadedness, no dizziness, no chest pain, no RUQ pain, denies hematuria, no flank pain Vitals/I&O/Wt Last Vital Signs Temp 98.6 F 03/11/24 05:08 Pulse 96 03/11/24 12:00 Resp 16 03/11/24 12:00 BP 108/67 03/11/24 12:00 Pulse Ox 94 03/11/24 12:00 O2 Del Method Room Air 03/11/24 12:00 O2 Flow Rate 2 03/10/24 11:30 03/11/24 03/11/24 03/11/24 06:59 14:59 22:59 Intake Total 900 / 1900 480 / 480 Output Total 1400 / 3000 775 / 775 Balance -500 / -1100 -295 / -295 Weight last 48 hrs Weight 78.335 kg Weight 77 kg Physical Exam 2 Const: COMMON NORMALS: no acute distress and patient oriented x3 Neck/C-Spine: COMMON NORMALS: no JVD Resp: COMMON NORMALS: normal respiratory effort, No retractions, No use of accessory muscles and clear to auscultation bilaterally AUSCULTATION: clear to auscultation bilaterally Cardio: COMMON NORMALS: no JVD, regular rate, regular rhythm, S1 normal heart sound present and S2 normal heart sound present RATE: regular rate RHYTHM: regular rhythm HEART SOUNDS: S1 normal heart sound present and S2 normal heart sound present GI: COMMON NORMALS: Normal to inspection, nondistended, normoactive bowel sounds present and non-tender Extremity: COMMON NORMALS: no pedal edema Neuro: COMMON NORMALS: patient oriented x3 Psych: COMMON NORMALS: mental status grossly normal Urinary Catheter Management: Moncada: Cath Placed During This Visit: yes Reason for Continuing Indwelling Catheter: Accurate Measurement of Urinary Output in Critically Ill Patients Urinary Catheter Date of Insertion: 03/04/24 Urinary Catheter Time of Insertion: 22:09 Data 03/11/24 03:32 03/11/24 03:32 A&P Assessment and plan (1) Acute hypoxic respiratory failure: (2) Bronchopneumonia: (3) Pyelonephritis: (4) ZOEY (acute kidney injury): (5) Acute heart failure: Qualifiers: Heart failure type: unspecified Qualified Code(s): I50.9 - Heart failure, unspecified (6) Transaminitis: (7) Acute liver failure: (8) Chest pain: Qualifiers: Chest pain type: unspecified Qualified Code(s): R07.9 - Chest pain, unspecified (9) Sepsis: Plan Acute hypoxic respiratory failure ? Likely multifactorial ? From bronchopneumonia ? From systolic CHF, elevated BNP, CT of the chest showing bilateral pleural effusions ? Plan - -15 L, hold diuretics for now ? Sputum cultures ? Blood cultures ? De-escalated to Augmentin ? DuoNeb ? Budesonide ? Monitor respiratory status closely Systolic CHF exacerbation, concern for ischemic cardiomyopathy ? BNP over 11,[address] of the chest showing bilateral pleural effusions -Cardiac echo ? CONCLUSIONS Severe diffuse hypokinesia of the left ventricle with an ejection fraction of around 15%. Mildly ncreased left atrial size. Thickened mitral valve. Mild mitral annular calcification. Mild to moderate mitral valve regurgitation. Thickened aortic valve. [id number] tricuspid valve regurgitation. Estimated pulmonary artery peak systolic pressure 43 mmHg. Mild pulmonary valve regurgitation. There is no pericardial effusion. Compared to the study from 09/12/2019, there is a marked decline in the LV ejection fraction from 55% to 15% ? Fluid restrictions at 1000 cc ? Creatinine up to 1.4, diuresis on hold --15 L - LifeVest ? Cardiology consulted Acute kidney injury ? Creatinine 1.4 ? Likely secondary to sepsis, CHF, diuresis ? Monitor -Fluid therapy, repeat BMP this afternoon Acute liver failure? 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 Liver ultrasound US/US abdomen complete* [id number] IMPRESSION: 1. Macronodular contour of the liver, concerning for cirrhosis. 2. Left hepatic lobe hyperechoic mass, which may represent hemangioma. Further evaluation with contrast enhanced abdomen MRI should be considered in the adequate clinical setting. 3. Bilateral thinning of the renal cortex, suggestive of chronic scarring. ? CT of the abdomen does not show intra or extrahepatic biliary dilatation status post cholecystectomy Right upper quadrant pain, epigastric pain - CT/CT abdomen pelvis wo con [id number] IMPRESSION: 1. Small bilateral pleural effusion. 2. Bibasilar atelectasis. 3. Small hiatal hernia with gastroesophageal reflux . 4. Punctate bilateral nonobstructive renal calculi. -Continue to monitor closely -Dilaudid 1 mg IV push every 8 hours as needed for pain -Continue hydrocodone -Monitor respiratory status -As patient continues to complain of right upper quadrant pain, repeat liver ultrasound to look at portal vein flow, ultrasound kidneys Complaints of chest pain, NSTEMI, with evidence of ischemic cardiomyopathy as above ? Serial EKGs, serial troponins, telemetry monitoring Schedule aspirin, statin, Plavix ? Heparin drip discontinued -Status post drug-eluting stent to left circumflex, LAD Sepsis, resolved No sepsis markers but given acute respiratory failure, evidence of mild respiratory distress, elevated WBC count, source of infection pneumonia, with ZOEY, acute liver failure, CHF soft blood pressure, monitor left groin, access site, slight erythema, added doxycycline for possible cellulitis; Full code Lovenox for DVT prophylaxis Plan for today, chf, soft blood pressures Attestations 2 Medical Necessity Statement*: patiuzairn requires hospitalization for chf Diagnoses Acute hypoxic respiratory failure J96.01 Bronchopneumonia J18.0 Pyelonephritis N12 ZOEY (acute kidney injury) N17.9 Acute heart failure, unspecified heart failure type I50.9 Heart failure type: unspecified Transaminitis R74.01 Acute liver failure K72.00 Chest pain R07.9 Chest pain type: unspecified Sepsis A41.9
--- NOTE | 2024-03-11 16:39 | PC.NURSE ---
Smart Grid Engineer assessed the patient and ordered losartan and spironolactone to be given. Patient's blood pressure was soft so Hospitalist was called and they ordered to put the medications on hold for right now.
[2024-03-11] MEDS: doxycycline 100 mg Tablet PO (17:42)
[2024-03-11] MEDS: temazepam 15 mg Capsule PO (20:18)
[2024-03-11] MEDS: atorvastatin 40 mg Tablet PO (20:18)
[2024-03-11] MEDS: pantoprazole 40 mg SDV IVP (20:19)
[2024-03-12] VITALS (12 sets, daily range): BP systolic 91–114; BP diastolic 57–82; PULSE 84–99; RESP 15–30; TEMP 36.6–37.2; O2SAT 93–99
[2024-03-12] MEDS: HYDROmorphone 1 mg/mL INJ 1 mL 0.5 MG IVP (01:10)
[2024-03-12 05:16] LABS: Basophils % 0.2 %; Eosinophils # 0.4 10^3/uL (0.0-0.8); Eosinophils % 5.2 %; Lymphocytes # 2.2 10^3/uL (0.8-4.8); Lymphocytes % 26.5 %; Mean Corpuscular Hemoglobin 27.4 pg (27-33); Mean Corpuscular Volume 88.6 fl (82-101); Mean Platelet Volume 10.5 fL (7.4-10.4); Monocytes # 0.7 10^3/uL (0.2-0.9); Monocytes % 7.9 %; Neutrophils # 4.93 10^3/uL (1.8-7.7); Neutrophils % 59.8 %; Nucleated Red Blood Cells % 0 %; Platelet Count 406 10^3/cmm (157-399); Red Blood Count 4.63 10^6/uL (3.85-5.65); White Blood Count 8.25 10^3/uL (3.29-11.43)
[2024-03-12 05:31] LABS: Alanine Aminotransferase 21 U/L (0-41); Albumin Level 3.9 g/dL (3.5-5.2); Alkaline Phosphatase 133 U/L (40-130); Anion Gap 15.1 (5-19); Aspartate Amino Transferase 19 U/L (0-40); Blood Urea Nitrogen 25 mg/dL (6-20); C Reactive Protein 7.5 mg/L (0.0-4.9); Calcium 10.1 mg/dL (8.5-10.5); Carbon Dioxide 26 mmol/L (22-29); Chloride 97 mmol/L (98-107); Creatinine Clr Calc Pharmacy 69.2917; Globulin 3.5 g/dL (1.3-4.6); Glomerular Filtration Rate 63.1 mL/min (90-130); Glucose 146 mg/dL (65-115); Magnesium 2.1 mg/dL (1.7-2.3); Osmolality Calculated 285 mOsm/kg (285-295); Potassium 4.1 mmol/L (3.5-5.1); Sodium 134 mmol/L (136-145); Total Bilirubin 0.6 mg/dL (0.15-1.2); Total Protein 7.4 g/dL (6.6-8.7)
[2024-03-12 05:41] LABS: NT Pro B Type Natriuretic Pept 2380 pg/mL (0-125); Procalcitonin 0.07 ng/mL (0-0.5)
[2024-03-12 08:01] LABS: Glucose Point of Care 115 mg/dL (70-110)
[2024-03-12] MEDS: clopidogrel 75 mg Tablet PO (08:44)
[2024-03-12] MEDS: nystatin powder 15 gm Btl 1 APPLIC TOPICAL (08:44)
[2024-03-12] MEDS: doxycycline 100 mg Tablet PO (08:44)
[2024-03-12] MEDS: aspirin 81 mg EC Tablet PO (08:44)
--- NOTE | 2024-03-12 08:46 | P.PN_ITS ---
Subjective 2 Subjective: Patient is feeling okay. No chest pain or shortness of breath. He was given the first dose of losartan this morning. The blood pressure seems to be holding up. No arrhythmias on the monitor. No new symptoms. Medications: Medication Review Details: Current Medications Acetaminophen (Acetaminophen 325 Mg Tablet) 650 mg PO Q6H PRN PRN Reason: Mild/Mod Pain Or Temp >/= 101 Last Admin: 03/11/24 20:23 Dose: 650 mg Al Hydrox/Mg Hydrox/Simethicone (Ckhg-Bod-Wpztznykq-Maik 30 Ml Udc) 30 ml PO Q15M PRN PRN Reason: INDIGESTION Albuterol/Ipratropium (Ipratropium-Albuterol 3 Ml Neb) 3 ml INHALATION Q4H.RESPIRATORY PRN PRN Reason: SHORTNESS OF BREATH Alprazolam (Alprazolam 0.5 Mg Tablet) 0.25 mg PO TID PRN PRN Reason: ANXIETY Last Admin: 03/09/24 21:11 Dose: 0.25 mg Aspirin (Aspirin 81 Mg Ec Tablet) 81 mg PO DAILY [facility] Last Admin: 03/12/24 08:44 Dose: 81 mg Atorvastatin Calcium (Atorvastatin 40 Mg Tablet) 40 mg PO BEDTIME [facility] Last Admin: 03/11/24 20:18 Dose: 40 mg Atropine Sulfate (Atropine 1 Mg/Ml Sdv 1 Ml) 0.5 mg IVP PRN PRN PRN Reason: Symptomatic bradycardia Budesonide (Budesonide 0.5 Mg/2 Ml Neb) 0.5 mg INHALATION BID.RESPIRATORY PRN PRN Reason: shortness of breath Clopidogrel Bisulfate (Clopidogrel 75 Mg Tablet) 75 mg PO DAILY [facility] Last Admin: 03/12/24 08:44 Dose: 75 mg Doxycycline Monohydrate (Doxycycline 100 Mg Tablet) 100 mg PO BID [facility]; Protocol Last Admin: 03/12/24 08:44 Dose: 100 mg Heparin Sodium (Porcine) (Heparin 5,000 Unit/Ml Inj 1 Ml) 5,000 unit SUBCUT Q12H [facility]UNIOR Last Admin: 03/11/24 23:10 Dose: 5,000 unit Hydromorphone HCl (Hydromorphone 1 Mg/Ml Inj 1 Ml) 0.5 mg IVP Q8H PRN PRN Reason: SEVERE PAIN Last Admin: 03/12/24 01:10 Dose: 0.5 mg Losartan Potassium (Losartan 50 Mg Tablet) 25 mg PO DAILY [facility] Magnesium Hydroxide (Magnesium Hydroxide 30 Ml Udc) 30 ml PO DAILY PRN PRN Reason: CONSTIPATION Metoclopramide HCl (Metoclopramide 5 Mg/Ml Sdv 2 Ml) 5 mg IVP Q4H PRN PRN Reason: NAUSEA AND VOMITING Last Admin: 03/06/24 17:20 Dose: 5 mg Metolazone (Metolazone 5 Mg Tablet) 5 mg PO DAILY [facility] Last Admin: 03/09/24 10:10 Dose: 5 mg Naloxone HCl (Naloxone 0.4 Mg/Ml Sdv) 0.4 mg IVP PRN PRN PRN Reason: RESPIRATORY RATE < 8/MIN Naloxone HCl (Naloxone 0.4 Mg/Ml Sdv) 0.1 mg IVP Q2M PRN PRN Reason: RESPIRATORY RATE < 8/MIN Nitroglycerin (Nitroglycerin 0.4 Mg Sublingual Tablet) 0.4 mg SUBLINGUAL Q5M PRN PRN Reason: CHEST PAIN Nystatin (Nystatin Powder 15 Gm Btl) 1 applic TOPICAL BID [facility] Last Admin: 03/12/24 08:44 Dose: 1 applic Ondansetron HCl (Ondansetron 2 Mg/Ml Sdv 2 Ml) 4 mg IVP Q8H PRN PRN Reason: vomiting, or N/V if npo Last Admin: 03/09/24 11:51 Dose: 4 mg Pantoprazole Sodium (Pantoprazole 40 Mg Sdv) 40 mg IVP Q24H [facility] Last Admin: 03/11/24 20:19 Dose: 40 mg Spironolactone (Spironolactone 25 Mg Tablet) 25 mg PO DAILY [facility] Temazepam (Temazepam 15 Mg Capsule) 15 mg PO BEDTIME PRN PRN Reason: INSOMNIA Last Admin: 03/11/24 20:18 Dose: 15 mg Vitals/I&O/Wt Last Vital Signs Temp 97.8 F 03/12/24 04:00 Pulse 98 03/12/24 06:00 Resp 19 H 03/12/24 05:00 BP 101/71 03/12/24 05:00 Pulse Ox 94 03/12/24 05:00 O2 Del Method Room Air 03/11/24 18:00 O2 Flow Rate 2 03/10/24 11:30 03/11/24 03/12/24 03/12/24 22:59 06:59 14:59 Intake Total 300 / 780 Output Total 550 / 1325 650 / 1975 Balance -550 / -845 -350 / -1195 Weight last 48 hrs Weight 172 lb 11.2 oz Weight 172 lb 11.2 oz Physical Exam 2 Narrative: GENERAL: The patient is alert and oriented times three. Slightly tachypneic with a respiratory rate of 22/min HEENT: No significant pallor, icterus or lymphadenopathy.Oral cavity: There are no mucous membrane lesions. NECK: Trachea appears to be central. No masses noted. No JVD or thyromegaly appreciated. RESPIRATORY: Chest is symmetrical. No intercostals muscle retraction or any accessory muscle activation. There is no chest wall tenderness. Breath sounds are heard bilaterally. No rales or rhonchi heard. No evidence of any consolidation. Few fine Rales at the base BREASTS: Deferred. HEART: The heart sounds are normal. Soft S3. Short systolic murmur in the lower sternal border. No pericardial rub ABDOMEN: No vessel pulsations or distention. No tenderness. No organomegaly appreciated. Bowel sounds are normally heard. : Deferred. RECTAL: Deferred. LYMPHATIC: No lymphadenopathy noted in the neck. EXTREMITIES: The right groin has some redness but no signs of infection. It seems to be fading away MUSCULOSKELETAL: No acute joint deformities or swelling SKIN: Right groin with increased redness NEUROPSYCHIATRIC: The patient is alert and oriented x3. Appears to be in a good mood. No tremors or rigidity noted. Urinary Catheter Management: [place]: Cath Placed During This Visit: yes, but has since been removed by the nurse Reason for Continuing Indwelling Catheter: Decision to DC Catheter Urinary Catheter Date of Insertion: 03/04/24 Urinary Catheter Time of Insertion: 22:09 Date Urinary Catheter Removed: 03/11/24 Time Urinary Catheter Discontinued: 17:47 Data 03/12/24 03:15 03/12/24 03:15 Other Labs: Laboratory Last Values WBC 8.25 10^3/uL (3.29-11.43) 03/12/24 03:15 RBC 4.63 10^6/uL (3.85-5.65) 03/12/24 03:15 Hgb 12.70 g/dL (11.27-16.99) 03/12/24 03:15 Hct 41.0 % (37-53) 03/12/24 03:15 MCV 88.6 fl (82-101) 03/12/24 03:15 MCH 27.4 pg (27-33) 03/12/24 03:15 MCHC 31.0 g/dL (30-55) 03/12/24 03:15 RDW 15.0 % (12.1-15.1) 03/12/24 03:15 Plt Count 406 10^3/cmm (157-399) H 03/12/24 03:15 MPV 10.5 fL (7.4-10.4) H 03/12/24 03:15 Neut % (Auto) 59.8 % 03/12/24 03:15 Lymph % (Auto) 26.5 % 03/12/24 03:15 [place] % (Auto) 7.9 % 03/12/24 03:15 Eos % (Auto) 5.2 % 03/12/24 03:15 Baso % (Auto) 0.2 % 03/12/24 03:15 Neut # (Auto) 4.93 10^3/uL (1.8-7.7) 03/12/24 03:15 Lymph # (Auto) 2.2 10^3/uL (0.8-4.8) 03/12/24 03:15 [place] # (Auto) 0.7 10^3/uL (0.2-0.9) 03/12/24 03:15 Eos # (Auto) 0.4 10^3/uL (0.0-0.8) 03/12/24 03:15 Baso # (Auto) 0.0 10^3/uL (0.0-0.1) 03/12/24 03:15 Nucleated RBC % (auto) 0 % 03/12/24 03:15 Nucleated RBCs # 0.0 /100WBC 03/12/24 03:15 PT 16.50 SECONDS (12.1-14.9) H 03/04/24 15:45 INR 1.29 (0.8-1.2) H 03/04/24 15:45 APTT 32.8 SECONDS (23.9-36.7) D 03/10/24 11:12 Specimen Type Venous 03/08/24 09:10 Sample Site Not specified 03/08/24 09:10 ABG pH 7.43 (7.35-7.45) 03/06/24 18:36 ABG pCO2 36.2 mmHg (35-45) 03/06/24 18:36 ABG pO2 63.9 mmHg (80.0-100.0) L 03/06/24 18:36 ABG PO2/FiO2 Ratio 304 03/06/24 18:36 ABG HCO3 23.8 mmol/L (22-26) 03/06/24 18:36 ABG O2 Saturation 95.8 03/05/24 20:22 ABG Base Excess -0.3 mmol/L (-2.0-2.0) 03/06/24 18:36 Ignacio Test N/a 03/08/24 09:10 A-a O2 Gradient Not Reportable 03/08/24 09:10 Hematocrit 30.7 % (42-52) L 03/08/24 09:10 Hgb O2 Saturation 50.1 % (95-100) L 03/08/24 09:10 Carboxyhemoglobin 1.4 %THgb (0.4-20.1) 03/08/24 09:10 Methemoglobin 0.9 % (0.4-1.5) 03/08/24 09:10 Total Hemoglobin 10.0 g/dL (14-18) L 03/08/24 09:10 Sodium 137.0 mmol/L (131-143) 03/05/24 20:22 Potassium 3.9 mmol/L (3.5-5.0) 03/05/24 20:22 Glucose 214.0 mg/dL (70-115) H 03/05/24 20:22 Ionized Calcium 1.1 mmol/L (1.1-1.4) 03/05/24 20:22 O2 Delivery Device Room air 03/08/24 09:10 FiO2 21.0 % 03/06/24 18:36 Customer Support Analyst ID [id number] 03/08/24 09:10 Sodium 134 mmol/L (136-145) L 03/12/24 03:15 Potassium 4.1 mmol/L (3.5-5.1) 03/12/24 03:15 Chloride 97 mmol/L (98-107) L 03/12/24 03:15 Carbon Dioxide 26 mmol/L (22-29) 03/12/24 03:15 Anion Gap 15.1 (5-19) 03/12/24 03:15 BUN 25 mg/dL (6-20) H 03/12/24 03:15 Creatinine 1.2 mg/dL (0.7-1.2) 03/12/24 03:15 GFR Calculation 63.1 mL/min (90-130) L 03/12/24 03:15 Glucose 146 mg/dL (65-115) H 03/12/24 03:15 POC Glucose 115 mg/dL (70-110) H 03/12/24 07:59 Estimat Average Glucose 117 03/04/24 20:20 Hemoglobin A1c 5.7 % (4.0-6.0) 03/04/24 20:20 Calculated Osmolality 285 mOsm/kg (285-295) 03/12/24 03:15 Lactic Acid 2.9 mmol/L (0.5-2.2) H 03/05/24 20:34 Lactic Acid (Sepsis) 2.0 mmol/L (0.5-2.2) 03/05/24 23:34 Lactate 2.1 mmol/L (0.5-2.2) 03/06/24 18:04 Calcium 10.1 mg/dL (8.5-10.5) 03/12/24 03:15 Phosphorus 3.0 mg/dL (2.5-4.5) 03/12/24 03:15 Magnesium 2.1 mg/dL (1.7-2.3) 03/12/24 03:15 Total Bilirubin 0.6 mg/dL (0.15-1.2) 03/12/24 03:15 Direct Bilirubin 0.60 mg/dL (0.00-0.30) H 03/04/24 17:50 Indirect Bilirubin 3.90 03/04/24 17:50 GGT 27 U/L (8-61) 03/11/24 03:32 AST 19 U/L (0-40) 03/12/24 03:15 ALT 21 U/L (0-41) 03/12/24 03:15 Alkaline Phosphatase 133 U/L (40-130) H 03/12/24 03:15 Ammonia 33 umol/L (16-60) 03/04/24 19:08 Creatine Kinase 93 U/L (39-308) 03/04/24 17:50 Troponin T 5th Gen ng/L 18 ng/L (0-15) H 03/05/24 12:30 Troponin T Baseline 18 ng/L (0-15) H 03/06/24 18:04 Troponin T 120 Minute 15.14 ng/L (0-15) H 03/06/24 20:02 Delta Troponin T -2.86 ABS# (0-10) L 03/06/24 20:02 Troponin T Hi Sens 6Hr 12.55 ng/L (0-15) 03/07/24 01:28 Troponin T Hi Sens 6Hr Delta -5.45 ng/L (0-12) L 03/07/24 01:28 C-Reactive Protein 7.5 mg/L (0.0-4.9) H 03/12/24 03:15 NT-Pro-B Natriuret Pep 2380 pg/mL (0-125) H 03/12/24 03:15 Total Protein 7.4 g/dL (6.6-8.7) 03/12/24 03:15 Albumin 3.9 g/dL (3.5-5.2) 03/12/24 03:15 Globulin 3.5 g/dL (1.3-4.6) 03/12/24 03:15 Triglycerides 67 mg/dL (0-150) 03/04/24 17:50 Cholesterol 129 mg/dL (0-200) 03/04/24 17:50 LDL Cholesterol, Calc 92 mg/dL (50-129) 03/04/24 17:50 HDL Cholesterol 24 mg/dL (60-100) L 03/04/24 17:50 LDL/HDL Ratio 3.83 RATIO (0.00-3.22) H 03/04/24 17:50 Cholesterol/HDL Ratio 5.38 mg/dL (1.0-5.00) H 03/04/24 17:50 Lipase 57 U/L (13-60) 03/11/24 03:32 Procalcitonin 0.07 ng/mL (0-0.5) 03/12/24 03:15 TSH 2.09 uIU/mL (0.27-4.20) 03/04/24 17:50 Urine Color Yellow (Yellow) 03/04/24 22:00 Urine Appearance Clear (CLEAR) 03/04/24 22:00 Urine pH 6.5 (5-7) 03/04/24 22:00 Ur Specific [place] 1.009 (1.005-1.030) 03/04/24 22:00 Urine Protein Negative (Negative) 03/04/24 22:00 Urine Glucose (UA) Negative (Normal) 03/04/24 22:00 Urine Ketones Negative (Negative) 03/04/24 22:00 Urine Blood Negative (Negative) 03/04/24 22:00 Urine Nitrate Negative (Negative) 03/04/24 22:00 Urine Bilirubin Negative (Negative) 03/04/24 22:00 Urine Urobilinogen 1.0 mg/dL (Negative) 03/04/24 22:00 Ur Leukocyte Esterase Negative (Negative) 03/04/24 22:00 Urine RBC 0-2 /hpf (0-2) 03/04/24 22:00 Urine WBC 0-5 /hpf (0-5) 03/04/24 22:00 Ur Squamous Epith Cells 0-5 /hpf (0-5) 03/04/24 22:00 Amorphous Sediment Not Reportable 03/04/24 22:00 Urine Bacteria None seen /hpf (NONE) 03/04/24 22:00 Hyaline Casts 1.21 /lpf 03/04/24 22:00 Urine Opiates Screen Negative ng/mL (Negative) 03/04/24 22:00 Ur Barbiturates Screen Negative ng/mL (Negative) 03/04/24 22:00 Ur Phencyclidine Scrn Negative ng/mL (Negative) 03/04/24 22:00 Ur Amphetamines Screen Negative ng/mL (Negative) 03/04/24 22:00 U Benzodiazepines Scrn Negative ng/mL (Negative) 03/04/24 22:00 Urine Cocaine Screen Negative ng/mL (Negative) 03/04/24 22:00 U Marijuana (THC) Screen Negative ng/mL (Negative) 03/04/24 22:00 Ethyl Alcohol < 10 mg/dL (0-10) 03/04/24 15:45 Coronavirus (PCR) Negative (Negative) 03/04/24 14:32 Hepatitis A IgM Ab Non-reactive (Nonreactive) 03/04/24 15:45 Hep Bs Antigen Non-reactive (Nonreactive) 03/04/24 15:45 Hep Bs Antibody < 3.5 (11.5-1000) L 03/04/24 15:45 Hep B Core Total Ab Non-reactive (Nonreactive) 03/04/24 15:45 Hepatitis C Antibody Non-reactive (Nonreactive) 03/04/24 15:45 HIV 1&2 Ab & HIV 1 Ag Non-reactive (Non-Reactiv) 03/04/24 15:45 HIV 1&2 Antibody Non-reactive (Non-Reactiv) 03/04/24 15:45 Influenza A (PCR) Negative (Negative) 03/04/24 14:32 Influenza Type B (PCR) Negative (Negative) 03/04/24 14:32 RSV (PCR) Negative (Negative) 03/04/24 14:32 A&P Assessment and plan (1) Atherosclerosis of coronary artery of solomon heart without angina pectoris: Patient is status post PCI of the LAD and circumflex artery. Currently remaining stable. Will continue the dual antiplatelet therapy. Other medications may be continued Qualifiers: Coronary Disease-Associated Artery/Lesion type: solomon artery Qualified Code(s): I25.10 - Atherosclerotic heart disease of solomon coronary artery without angina pectoris (2) Acute heart failure: Diuretics were on hold due to increase in creatinine. No s/s of fluid overload at this time. May continue the careful IV diuresis Qualifiers: Heart failure type: unspecified Qualified Code(s): I50.9 - Heart failure, unspecified (3) Cardiomyopathy: Patient is on LifeVest. GDMT may be continued. Qualifiers: Cardiomyopathy type: other Qualified Code(s): I42.8 - Other cardiomyopathies (4) Nicotine dependence, cigarettes, uncomplicated: Patient strongly advised to quit smoking. Cardiovascular implications were discussed. Patient seems to understand this well (5) Hypertension: Currently the blood pressure is in the low normal side. Since he is asymptomatic, may continue on the current measures. Qualifiers: Hypertension type: primary hypertension Qualified Code(s): I10 - Essential (primary) hypertension (6) Elevated bilirubin: Seems to be improving. Continue on the current measures (7) ZOEY (acute kidney injury): Possibly from low output stateas. The BUN and creatinine is returning to normal Plan If the patient continues to remain stable, may be discharged home today. Follow[facility] appointment at [facility] with the nurse practitioner in 1 week Follow-up appointment with me in the office in 1 month Attestations 2 Medical Necessity Statement*: Disposition as per the primary Coding Level of Care Code 93312 Diagnoses Atherosclerosis of solomon coronary artery of solomon heart without angina pectoris I25.10 Coronary Disease-Associated Artery/Lesion type: solomon artery Acute heart failure, unspecified heart failure type I50.9 Heart failure type: unspecified Other cardiomyopathy I42.8 Cardiomyopathy type: other Nicotine dependence, cigarettes, uncomplicated F17.210 Primary hypertension I10 Hypertension type: primary hypertension Elevated bilirubin R17 ZOEY (acute kidney injury) N17.9
[2024-03-12] MEDS: ondansetron 2 mg/ML SDV 2 mL 4 MG IVP (09:37)
--- NOTE | 2024-03-12 10:31 | P.DS_ITS ---
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: Status: Acute Qualifiers: Coronary Disease-Associated Artery/Lesion type: burns [place] artery Qualified Code(s): I25.10 - Atherosclerotic heart disease of burns [place] coronary artery without angina pectoris (2) Acute heart failure: Status: Acute Qualifiers: Heart failure type: unspecified Qualified Code(s): I50.9 - Heart failure, unspecified (3) Cardiomyopathy: Status: Acute Qualifiers: Cardiomyopathy type: other Qualified Code(s): I42.8 - Other cardiomyopathies (4) Nicotine dependence, cigarettes, uncomplicated: Status: Chronic Permanent problem details: Strongly advised to quit smoking (5) Hypertension: Status: Chronic Qualifiers: Hypertension type: primary hypertension Qualified Code(s): I10 - Essential (primary) hypertension (6) Elevated bilirubin: Status: Acute (7) ZOEY (acute kidney injury): Status: Acute Reason for Visit Reason for Visit: Sob, Flu like x 2 weeks Hospital Course Hospital Course Vivek Corral is a 53 year old male with a past medical history of chronic neck pain, migraines, history of neck surgery, hypertension, depression, who presents to [facility] due to fatigue, malaise, shortness of breath, cough. Patient tells me for the last few days he has been experiencing increased shortness of breath, increased shortness of breath on exertion with a nonproductive cough, subjective fevers chills fatigue, malaise. He has also been experiencing chest pain he had to use nitroglycerin due to episodes of chest pain. Denies any alcohol use, denies any drug use, no cardiovascular see no history of strokes, no history of liver failure. He tells me also he is right flank has been hurting him as if he has a kidney stone. Denies a history of liver failure, no history of gallstones. Patient was admitted to [facility] for acute hypoxic respiratory failure multifactorial from bronchopneumonia, systolic CHF EF of 15%, bilateral pleural effusions, received broad-spectrum antibiotic therapy, IV diuresis, overall clinically improved, discharged with p.o. antibiotics with close follow- up with primary care provider as outpatient Systolic CHF, received IV diuresis diuresed over 18 L during his hospitalization, creatinine on discharge 1.4, discharged with LifeVest in place For his ZOEY, creatinine at discharge 1.4 For his NSTEMI, chest pain, ischemic cardiomyopathy, was initially medically managed, cardiology consulted status post drug-eluting stent to left circumflex LAD, will be discharged on aspirin, statin, Plavix with close follow-up with cardiology as outpatient Sepsis secondary to pneumonia, resolved Acute liver failure elevated LFTs likely secondary to 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, follow-up with primary care provider as outpatient monitor LFTs as outpatient Patient had bilateral groin erythema, likely candidiasis, discharged with topical nystatin Physical Exam Const: COMMON NORMALS: no acute distress and patient oriented x3 Resp: COMMON NORMALS: normal respiratory effort, No retractions, No use of accessory muscles and clear to auscultation bilaterally AUSCULTATION: clear to auscultation bilaterally Cardio: COMMON NORMALS: regular rate, regular rhythm, S1 normal heart sound present and S2 normal heart sound present RATE: regular rate RHYTHM: regular rhythm HEART SOUNDS: S1 normal heart sound present and S2 normal heart sound present GI: COMMON NORMALS: Normal to inspection, nondistended, normoactive bowel sounds present and non-tender Extremity: COMMON NORMALS: no pedal edema Neuro: COMMON NORMALS: patient oriented x3 Psych: COMMON NORMALS: mental status grossly normal Urinary Catheter Management: [place]: Cath Placed During This Visit: yes, but has since been removed by the nurse Reason for Continuing Indwelling Catheter: Decision to DC Catheter Urinary Catheter Date of Insertion: 03/04/24 Urinary Catheter Time of Insertion: 22:09 Date Urinary Catheter Removed: 03/11/24 Time Urinary Catheter Discontinued: 17:47 Discharge Data Studies Completed and Pending Completed Studies During Hospitalization Category Date Time Status CT abdomen pelvis wo con [id number] Routine Cat Scan 03/05/24 18:[address] angio chest w abd pel w con Stat Cat Scan 03/04/24 16:36 Completed XR KUB portable [id number] Stat Exams 03/06/24 17:37 Completed XR chest 1V portable [id number] Stat Exams 03/04/24 14:26 Completed CV. echo complete* [id number] Routine Ultrasound 03/04/24 19:31 Completed US abdomen complete* [id number] Routine Ultrasound 03/04/24 19:31 Completed US kidney bilateral [US renal BI* [id number]] Routine Ultrasound 03/10/24 14:54 Completed US liver [id number] Stat Ultrasound 03/10/24 14:54 Completed Pending at discharge Category Date Time Status BACK[employer]OM ASSOCIATE request for service Routine Exams 03/08/24 08:09 Taken BACKRO[employer] ASSOCIATE request for service Routine Exams 03/10/24 05:13 Taken C Reactive Protein AM LABS Lab 03/13/24 04:00 Ordered Complete Blood Count w/Auto AM LABS Lab 03/13/24 04:00 Ordered Comprehensive Metabolic Panel AM LABS Lab 03/13/24 04:00 Ordered Magnesium AM LABS Lab 03/13/24 04:00 Ordered NT Pro B Type Natriuretic Pept QAM Lab 03/13/24 06:00 Ordered Phosphorus AM LABS Lab 03/13/24 04:00 Ordered Procalcitonin AM LABS Lab 03/13/24 04:00 Ordered Radiology Impressions Chest X-Ray 03/04/24 14:26 IMPRESSION: Cardiac enlargement and indistinct central pulmonary interstitial markings. Possible interstitial edema. Chest/Abdomen/Pelvis CT 03/04/24 16:36 IMPRESSION: 1. Negative for pulmonary embolus. 2. Scattered enlarged mediastinal lymph nodes measuring up to 13 mm, nonspecific. 3. Small to moderate bilateral pleural effusions. 4. Coronary artery atherosclerotic calcifications. 5. Cardiomegaly. 6. Patchy right lung bronchopneumonia. IMPRESSION: 1. Mildly prominent fluid in the stomach and small bowel, please correlate for a gastroenteritis. 2. Left hepatic lobe cyst along with several additional suspected cysts. 3. Cholecystectomy. 4. Bilateral renal cysts, negative for follow up advised. 5. Bilateral punctate nonobstructing renal calyceal stones. 6. Diverticulosis without diverticulitis. 7. Small omental fat containing hernia. 8. Trace nonspecific fluid in the pelvis. 9. Small hiatal hernia. 10. Perinephric edema bilaterally likely reflecting renal insufficiency, please correlate for pyelonephritis. Abdomen Ultrasound 03/04/24 19:31 IMPRESSION: 1. Macronodular contour of the liver, concerning for cirrhosis. 2. Left hepatic lobe hyperechoic mass, which may represent hemangioma. Further evaluation with contrast enhanced abdomen MRI should be considered in the adequate clinical setting. 3. Bilateral thinning of the renal cortex, suggestive of chronic scarring. Abdomen/Pelvis CT 03/05/24 18:09 IMPRESSION: 1. Small bilateral pleural effusion. 2. Bibasilar atelectasis. 3. Small hiatal hernia with gastroesophageal reflux . 4. Punctate bilateral nonobstructive renal calculi. KUB X-Ray 03/06/24 17:37 IMPRESSION: Nonobstructive bowel-gas pattern. Liver Ultrasound 03/10/24 14:54 IMPRESSION: No acute findings. Renal Ultrasound 03/10/24 14:54 IMPRESSION: 1. A few hypoechoic lesions in both kidneys. Some are cysts. Others are indeterminate. Recommend contrast-enhanced MRI of the kidneys for these. 2. Several small nonobstructing renal calculi bilaterally. 3. Otherwise, unremarkable kidneys. Laboratory Results WBC 8.25 10^3/uL (3.29-11.43) 03/12/24 03:15 RBC 4.63 10^6/uL (3.85-5.65) 03/12/24 03:15 Hgb 12.70 g/dL (11.27-16.99) 03/12/24 03:15 Hct 41.0 % (37-53) 03/12/24 03:15 MCV 88.6 fl (82-101) 03/12/24 03:15 MCH 27.4 pg (27-33) 03/12/24 03:15 MCHC 31.0 g/dL (30-55) 03/12/24 03:15 RDW 15.0 % (12.1-15.1) 03/12/24 03:15 Plt Count 406 10^3/cmm (157-399) H 03/12/24 03:15 MPV 10.5 fL (7.4-10.4) H 03/12/24 03:15 Neut % (Auto) 59.8 % 03/12/24 03:15 Lymph % (Auto) 26.5 % 03/12/24 03:15 [place] % (Auto) 7.9 % 03/12/24 03:15 Eos % (Auto) 5.2 % 03/12/24 03:15 Baso % (Auto) 0.2 % 03/12/24 03:15 Neut # (Auto) 4.93 10^3/uL (1.8-7.7) 03/12/24 03:15 Lymph # (Auto) 2.2 10^3/uL (0.8-4.8) 03/12/24 03:15 [place] # (Auto) 0.7 10^3/uL (0.2-0.9) 03/12/24 03:15 Eos # (Auto) 0.4 10^3/uL (0.0-0.8) 03/12/24 03:15 Baso # (Auto) 0.0 10^3/uL (0.0-0.1) 03/12/24 03:15 Nucleated RBC % (auto) 0 % 03/12/24 03:15 Nucleated RBCs # 0.0 /100WBC 03/12/24 03:15 PT 16.50 SECONDS (12.1-14.9) H 03/04/24 15:45 INR 1.29 (0.8-1.2) H 03/04/24 15:45 APTT 32.8 SECONDS (23.9-36.7) D 03/10/24 11:12 Specimen Type Venous 03/08/24 09:10 Sample Site Not specified 03/08/24 09:10 ABG pH 7.43 (7.35-7.45) 03/06/24 18:36 ABG pCO2 36.2 mmHg (35-45) 03/06/24 18:36 ABG pO2 63.9 mmHg (80.0-100.0) L 03/06/24 18:36 ABG PO2/FiO2 Ratio 304 03/06/24 18:36 ABG HCO3 23.8 mmol/L (22-26) 03/06/24 18:36 ABG O2 Saturation 95.8 03/05/24 20:22 ABG Base Excess -0.3 mmol/L (-2.0-2.0) 03/06/24 18:36 Ignacio Test N/a 03/08/24 09:10 A-a O2 Gradient Not Reportable 03/08/24 09:10 Hematocrit 30.7 % (42-52) L 03/08/24 09:10 Hgb O2 Saturation 50.1 % (95-100) L 03/08/24 09:10 Carboxyhemoglobin 1.4 %THgb (0.4-20.1) 03/08/24 09:10 Methemoglobin 0.9 % (0.4-1.5) 03/08/24 09:10 Total Hemoglobin 10.0 g/dL (14-18) L 03/08/24 09:10 Sodium 137.0 mmol/L (131-143) 03/05/24 20:22 Potassium 3.9 mmol/L (3.5-5.0) 03/05/24 20:22 Glucose 214.0 mg/dL (70-115) H 03/05/24 20:22 Ionized Calcium 1.1 mmol/L (1.1-1.4) 03/05/24 20:22 O2 Delivery Device Room air 03/08/24 09:10 FiO2 21.0 % 03/06/24 18:36 Behavioral Therapy Coordinator ID Gd 03/08/24 09:10 Sodium 134 mmol/L (136-145) L 03/12/24 03:15 Potassium 4.1 mmol/L (3.5-5.1) 03/12/24 03:15 Chloride 97 mmol/L (98-107) L 03/12/24 03:15 Carbon Dioxide 26 mmol/L (22-29) 03/12/24 03:15 Anion Gap 15.1 (5-19) 03/12/24 03:15 BUN 25 mg/dL (6-20) H 03/12/24 03:15 Creatinine 1.2 mg/dL (0.7-1.2) 03/12/24 03:15 GFR Calculation 63.1 mL/min (90-130) L 03/12/24 03:15 Glucose 146 mg/dL (65-115) H 03/12/24 03:15 POC Glucose 115 mg/dL (70-110) H 03/12/24 07:59 Estimat Average Glucose 117 03/04/24 20:20 Hemoglobin A1c 5.7 % (4.0-6.0) 03/04/24 20:20 Calculated Osmolality 285 mOsm/kg (285-295) 03/12/24 03:15 Lactic Acid 2.9 mmol/L (0.5-2.2) H 03/05/24 20:34 Lactic Acid (Sepsis) 2.0 mmol/L (0.5-2.2) 03/05/24 23:34 Lactate 2.1 mmol/L (0.5-2.2) 03/06/24 18:04 Calcium 10.1 mg/dL (8.5-10.5) 03/12/24 03:15 Phosphorus 3.0 mg/dL (2.5-4.5) 03/12/24 03:15 Magnesium 2.1 mg/dL (1.7-2.3) 03/12/24 03:15 Total Bilirubin 0.6 mg/dL (0.15-1.2) 03/12/24 03:15 Direct Bilirubin 0.60 mg/dL (0.00-0.30) H 03/04/24 17:50 Indirect Bilirubin 3.90 03/04/24 17:50 GGT 27 U/L (8-61) 03/11/24 03:32 AST 19 U/L (0-40) 03/12/24 03:15 ALT 21 U/L (0-41) 03/12/24 03:15 Alkaline Phosphatase 133 U/L (40-130) H 03/12/24 03:15 Ammonia 33 umol/L (16-60) 03/04/24 19:08 Creatine Kinase 93 U/L (39-308) 03/04/24 17:50 Troponin T 5th Gen ng/L 18 ng/L (0-15) H 03/05/24 12:30 Troponin T Baseline 18 ng/L (0-15) H 03/06/24 18:04 Troponin T 120 Minute 15.14 ng/L (0-15) H 03/06/24 20:02 Delta Troponin T -2.86 ABS# (0-10) L 03/06/24 20:02 Troponin T Hi Sens 6Hr 12.55 ng/L (0-15) 03/07/24 01:28 Troponin T Hi Sens 6Hr Delta -5.45 ng/L (0-12) L 03/07/24 01:28 C-Reactive Protein 7.5 mg/L (0.0-4.9) H 03/12/24 03:15 NT-Pro-B Natriuret Pep 2380 pg/mL (0-125) H 03/12/24 03:15 Total Protein 7.4 g/dL (6.6-8.7) 03/12/24 03:15 Albumin 3.9 g/dL (3.5-5.2) 03/12/24 03:15 Globulin 3.5 g/dL (1.3-4.6) 03/12/24 03:15 Triglycerides 67 mg/dL (0-150) 03/04/24 17:50 Cholesterol 129 mg/dL (0-200) 03/04/24 17:50 LDL Cholesterol, Calc 92 mg/dL (50-129) 03/04/24 17:50 HDL Cholesterol 24 mg/dL (60-100) L 03/04/24 17:50 LDL/HDL Ratio 3.83 RATIO (0.00-3.22) H 03/04/24 17:50 Cholesterol/HDL Ratio 5.38 mg/dL (1.0-5.00) H 03/04/24 17:50 Lipase 57 U/L (13-60) 03/11/24 03:32 Procalcitonin 0.07 ng/mL (0-0.5) 03/12/24 03:15 TSH 2.09 uIU/mL (0.27-4.20) 03/04/24 17:50 Urine Color Yellow (Yellow) 03/04/24 22:00 Urine Appearance Clear (CLEAR) 03/04/24 22:00 Urine pH 6.5 (5-7) 03/04/24 22:00 Ur Specific [place] 1.009 (1.005-1.030) 03/04/24 22:00 Urine Protein Negative (Negative) 03/04/24 22:00 Urine Glucose (UA) Negative (Normal) 03/04/24 22:00 Urine Ketones Negative (Negative) 03/04/24 22:00 Urine Blood Negative (Negative) 03/04/24 22:00 Urine Nitrate Negative (Negative) 03/04/24 22:00 Urine Bilirubin Negative (Negative) 03/04/24 22:00 Urine Urobilinogen 1.0 mg/dL (Negative) 03/04/24 22:00 Ur Leukocyte Esterase Negative (Negative) 03/04/24 22:00 Urine RBC 0-2 /hpf (0-2) 03/04/24 22:00 Urine WBC 0-5 /hpf (0-5) 03/04/24 22:00 Ur Squamous Epith Cells 0-5 /hpf (0-5) 03/04/24 22:00 Amorphous Sediment Not Reportable 03/04/24 22:00 Urine Bacteria None seen /hpf (NONE) 03/04/24 22:00 Hyaline Casts 1.21 /lpf 03/04/24 22:00 Urine Opiates Screen Negative ng/mL (Negative) 03/04/24 22:00 Ur Barbiturates Screen Negative ng/mL (Negative) 03/04/24 22:00 Ur Phencyclidine Scrn Negative ng/mL (Negative) 03/04/24 22:00 Ur Amphetamines Screen Negative ng/mL (Negative) 03/04/24 22:00 U Benzodiazepines Scrn Negative ng/mL (Negative) 03/04/24 22:00 Urine Cocaine Screen Negative ng/mL (Negative) 03/04/24 22:00 U Marijuana (THC) Screen Negative ng/mL (Negative) 03/04/24 22:00 Ethyl Alcohol < 10 mg/dL (0-10) 03/04/24 15:45 Coronavirus (PCR) Negative (Negative) 03/04/24 14:32 Hepatitis A IgM Ab Non-reactive (Nonreactive) 03/04/24 15:45 Hep Bs Antigen Non-reactive (Nonreactive) 03/04/24 15:45 Hep Bs Antibody < 3.5 (11.5-1000) L 03/04/24 15:45 Hep B Core Total Ab Non-reactive (Nonreactive) 03/04/24 15:45 Hepatitis C Antibody Non-reactive (Nonreactive) 03/04/24 15:45 HIV 1&2 Ab & HIV 1 Ag Non-reactive (Non-Reactiv) 03/04/24 15:45 HIV 1&2 Antibody Non-reactive (Non-Reactiv) 03/04/24 15:45 Influenza A (PCR) Negative (Negative) 03/04/24 14:32 Influenza Type B (PCR) Negative (Negative) 03/04/24 14:32 RSV (PCR) Negative (Negative) 03/04/24 14:32 Vitals Last Vital Signs Temp 98.9 F 03/12/24 08:00 Pulse 97 03/12/24 08:00 Resp 22 H 03/12/24 08:00 BP 114/82 03/12/24 08:00 Pulse Ox 98 03/12/24 08:00 O2 Del Method Room Air 03/12/24 08:00 O2 Flow Rate 2 03/10/24 11:30 Discharge Plan Discharge Patient Disposition: Home Condition: Stable Prescriptions: New aspirin 81 mg Tablet,Delayed Release (Dr/Ec) 81 mg PO DAILY 30 Days Qty: 30 0RF clopidogrel 75 mg Tablet 75 mg PO DAILY 30 Days Qty: 30 0RF doxycycline monohydrate 100 mg Tablet 100 mg PO BID 5 Days Qty: 10 0RF nystatin [Nystop] 100,000 unit/gram Powder 1 applic topical BID 7 Days Qty: 30 0RF losartan 25 mg tablet 12.5 mg PO DAILY 30 Days Qty: 15 0RF atorvastatin 40 mg Tablet 40 mg PO BEDTIME 30 Days Qty: 30 0RF Continued pantoprazole 40 mg tablet,delayed release (DR/EC) 40 mg PO DAILY allopurinol 300 mg tablet 300 mg PO DAILY diazepam 2 mg tablet 2 mg PO DAILY PRN (Reason: Anxiety) colchicine 0.6 mg tablet 2 mg PO ONCE PRN (Reason: gout) nitroglycerin 0.4 mg tablet, sublingual 0.4 mg sublingual Q5M PRN (Reason: Chest Pain) 30 Days Qty: 30 0RF Discontinued ramipril 10 mg capsule 10 mg PO DAILY naproxen sodium 220 mg Capsule 660 mg PO BID PRN (Reason: Pain) Discharge Orders: Discharge Order (Routine); Ordered 03/12/24 Ordered By: Kwame Fisher Referrals: Soto Escamilla MD [Primary Care Provider] - Discharge Diet: Cardiac Discharge Activity: Resume usual activity Patient Instructions: Opioid Safety Activity Restrictions/Additional Instructions: - Please limit your fluid intake to 1 to 1.5 L of fluid a day -Follow-up with primary care provider -Follow-up with cardiology in 1 week -Please continue aspirin, statin, Plavix do not stop taking these medications as they are keeping her stent open -If you have recurrent chest pain please go to emergency room ? If you have any shortness of breath please go to the emergency room Discharge Attestations Time Spent in Discharge Care*: greater than 30 min Status at Discharge: Cognitive status at discharge: cognitively intact , Behavioral status at discharge: cooperative , Quality Metrics Clinical Quality Measures [ No reported AMI, CVA or VTE this stay] Coding Level of Care Code 02273 Total time (in minutes) for Discharge: 45 Diagnoses Atherosclerosis of burns paiute coronary artery of burns [place] heart without angina pectoris I25.10 Coronary Disease-Associated Artery/Lesion type: burns [place] artery Acute heart failure, unspecified heart failure type I50.9 Heart failure type: unspecified Other cardiomyopathy I42.8 Cardiomyopathy type: other Nicotine dependence, cigarettes, uncomplicated F17.210 Primary hypertension I10 Hypertension type: primary hypertension Elevated bilirubin R17 ZOEY (acute kidney injury) N17.9
--- NOTE | 2024-03-12 11:42 | PC.OT ---
OT TREATMENT ATTEMPTED THIS A.M. PATIENT HAD VOMITED BUT STATES IS FEELING BETTER. STATES HE IS GOING HOME LATER TODAY.
[2024-03-12] MEDS: losartan 50 mg Tablet 12.5 MG PO (11:51)
[2024-03-12] MEDS: heparin 5,000 unit/mL INJ 1 mL 5000 UNIT SUBCUT (11:51)
--- NOTE | 2024-03-12 12:50 | PC.NURSE ---
Patient received discharge orders. Meds to beds arranged for patient. Medicaid ride set up per case management. All IVs removed. LIfe vest in place. Patient ambulated to main exit at 1250 with staff. All patient belongings sent with patient. Activity restrictions explained to patient, who verbalized understanding. No further questions.
== END 2024-03-12 12:50 | disposition home or self-care (01) | DRG 853 ==
LOC: ER 14:51 → MEDSURG 18:09 → CSU 03-05 10:29 → ICU 03-06 18:31
PROVIDERS: Internal Medicine; Student in an Organized Health Care Education/Training Program; Admitting Provider Family Medicine; Emergency Provider Emergency Medicine; PCP Family Medicine; Visit Provider Family Medicine
PROC: 027135Z Dilation of Coronary Artery, Two Arteries with Two Drug-eluting Intraluminal Devices, Percutaneous Approach (ICD-10-PCS; principal; 2024-03-10 06:00)
PROC: 027135Z Dilation of Coronary Artery, Two Arteries with Two Drug-eluting Intraluminal Devices, Percutaneous Approach (ICD-10-PCS; 2024-03-10 06:00)
DX: A41.9 Sepsis, unspecified organism (principal); I21.4 Non-ST elevation (NSTEMI) myocardial infarction; I50.23 Acute on chronic systolic (congestive) heart failure; J96.01 Acute respiratory failure with hypoxia; J18.0 Bronchopneumonia, unspecified organism; K72.00 Acute and subacute hepatic failure without coma; N12 Tubulo-interstitial nephritis, not specified as acute or chronic; N17.9 Acute kidney failure, unspecified; R65.20 Severe sepsis without septic shock; I25.10 Atherosclerotic heart disease of native coronary artery without angina pectoris; G89.29 Other chronic pain; M54.2 Cervicalgia; G43.709 Chronic migraine without aura, not intractable, without status migrainosus; I11.0 Hypertensive heart disease with heart failure; F32.A Depression, unspecified; R73.03 Prediabetes; K21.9 Gastro-esophageal reflux disease without esophagitis; E78.5 Hyperlipidemia, unspecified; F17.210 Nicotine dependence, cigarettes, uncomplicated; F15.91 Other stimulant use, unspecified, in remission; I25.5 Ischemic cardiomyopathy; B37.2 Candidiasis of skin and nail; M10.9 Gout, unspecified; E89.0 Postprocedural hypothyroidism; F41.1 Generalized anxiety disorder; Z79.82 Long term (current) use of aspirin; Z98.1 Arthrodesis status; I25.2 Old myocardial infarction; Z88.2 Allergy status to sulfonamides; Z90.49 Acquired absence of other specified parts of digestive tract; Z82.49 Family history of ischemic heart disease and other diseases of the circulatory system
CPT/HCPCS: 0241U; 36415; 36416; 36600; 51702; 71045; 71275; 74018; 74176; 74177; 76700; 76705; 76770; 80048; 80051; 80053; 80061; 80306; 80307; 81001; 82140; 82247; 82248; 82330; 82550; 82803; 82805; 82810; 82962; 82977; 83036; 83605; 83690; 83735; 83880; 84100; 84145; 84443; 84484; 85025; 85347; 85610; 85730; 86140; 86705; 86706; 86709; 86803; 87040; 87340; 87806; 93005; 93306; 93460; 94640; 94664; 96372; 96374; 96375; 96376; 97116; 97162; 97167; 97535; 99152; 99153; 99285; C1725; C1751; C1769; C1874; C1887; C1894; C9600; J0456; J0696; J1171; J1200; J1644; J1650; J1940; J2250; J2270; J2310; J2405; J2470; J2765; J3010; J3475; J7050; J7626; Q0144; Q9967

== ENCOUNTER 2024-03-13 23:44 | Observation (INO) | payer MEDICAID, SELFPAY ==
[2024-03-13 13:17] VITALS: BP 106/69; BMI 29.4
--- NOTE | 2024-03-13 23:49 | XRR_ITS ---
PROCEDURE INFORMATION: Exam: XR Chest Exam date and time: 03/14/2024 12:15 AM Age: 53 years old Clinical indication: Pain; Chest pressure; Prior surgery; Surgery date: 1-6 months; Surgery type: 2 heart stents; Additional info: Chest pain TECHNIQUE: Imaging protocol: Radiologic exam of the chest. Views: 1 view. COMPARISON: CT angio chest w abd pel w con 03/04/2024 4:47 PM FINDINGS: Tubes, catheters and devices: Life vest device noted overlying the chest wall. Lungs: The lungs are relatively clear. Pleural spaces: No pleural effusion or. Heart/Mediastinum: Cardiomegaly. Bones/joints: Unremarkable. XR/XR chest 1V portable [id number] IMPRESSION: As above.
--- NOTE | 2024-03-13 23:52 | ECG_ITS ---
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 Measurements Intervals [place] Rate: 97 P: 43 UT: 164 QRS: -23 QRSD: 98 T: 132 QT: 391 QTc: 497 Interpretive Statements SINUS RHYTHM POSSIBLE LEFT ATRIAL ENLARGEMENT [-0.1mV P-WAVE IN V1/V2] LOW QRS VOLTAGE IN PRECORDIAL LEADS [QRS DEFLECTION < 1.0 mV IN CHEST LEADS] ANTEROSEPTAL MYOCARDIAL INFARCTION , OF INDETERMINATE AGE [40+ ms Q WAVE IN V1-V4] Compared to ECG 03/06/2024 23:32:03 No significant changes Electronically Signed On 03-14-2024 16:54:58 [employer] by Siobhan Gee M.D. [email or web address]
[2024-03-13 23:54] VITALS: PULSE 92; RESP 21; O2SAT 95; BMI 27.4
[2024-03-14] VITALS (14 sets, daily range): BP systolic 94–107; BP diastolic 58–75; PULSE 91–100; RESP 18–24; TEMP 36.3–36.8; O2SAT 90–98
[2024-03-14 00:05] LABS: Glucose Point of Care 111 mg/dL (70-110)
[2024-03-14 00:12] LABS: Basophils % 0.2 %; Eosinophils # 0.3 10^3/uL (0.0-0.8); Eosinophils % 3.5 %; Hematocrit 39.1 % (37-53); Lymphocytes # 2.2 10^3/uL (0.8-4.8); Lymphocytes % 24.3 %; Mean Corpuscular HGB Conc 30.9 g/dL (30-55); Mean Corpuscular Hemoglobin 27.5 pg (27-33); Mean Corpuscular Volume 88.9 fl (82-101); Mean Platelet Volume 9.6 fL (7.4-10.4); Monocytes # 0.9 10^3/uL (0.2-0.9); Monocytes % 10.1 %; Neutrophils # 5.62 10^3/uL (1.8-7.7); Neutrophils % 61.6 %; Nucleated Red Blood Cells % 0 %; Platelet Count 425 10^3/cmm (157-399); Red Cell Distribution Width 14.8 % (12.1-15.1); White Blood Count 9.13 10^3/uL (3.29-11.43)
--- NOTE | 2024-03-14 00:16 | ED_ITS ---
HPI - Chest Pain 2 General: Chief Complaint: Chest Pain Stated Complaint: chest Pain Time Seen by Provider: 03/13/24 23:48 History of Present Illness: 53-year-old man with a history of lopez ry artery disease who was recently admitted to the hospital and had a cardiac cath with stent placement and is currently wearing a LifeVest who presents to the emergency room with upper abdominal pain. Said he is had some nausea and vomiting and initially points to his chest and then more his epigastrium and then more mid abdominal pain. Related Data Home Medications Medication Instructions Recorded Confirmed pantoprazole 40 mg tablet,delayed 40 mg PO DAILY 07/17/21 03/04/24 release allopurinol 300 mg tablet 300 mg PO DAILY 03/04/24 03/04/24 colchicine 0.6 mg tablet 2 mg PO ONCE PRN gout 03/04/24 03/04/24 diazepam 2 mg tablet 2 mg PO DAILY PRN Anxiety 03/04/24 03/04/24 Previous Rx's Medication Instructions Recorded aspirin 81 mg tablet,delayed 81 mg PO DAILY 30 days #30 tabs 03/12/24 release atorvastatin 40 mg tablet 40 mg PO BEDTIME 30 days #30 tabs 03/12/24 clopidogrel 75 mg tablet 75 mg PO DAILY 30 days #30 tabs 03/12/24 doxycycline monohydrate 100 mg 100 mg PO BID 5 days #10 tabs 03/12/24 tablet losartan 25 mg tablet 12.5 mg (1/2 x 25 mg) PO DAILY 30 03/12/24 days #15 tabs nitroglycerin 0.4 mg sublingual 0.4 mg sublingual Q5M PRN Chest 03/12/24 tablet Pain 30 days #30 tabs nystatin 100,000 unit/gram topical 1 applic topical BID 7 days #30 03/12/24 powder (Nystop) grams Allergies Allergy/AdvReac Type Severity Reaction Status Date / Time sulfamethoxazole Allergy SWOLLEN Verified 01/03/24 14:17 [From ] TONGUE trimethoprim [From ] Allergy SWOLLEN Verified 01/03/24 14:17 TONGUE Review of Systems 2 Narrative: Constitutional symptoms: Negative except as documented in HPI. Skin symptoms: Negative except as documented in HPI. Eye symptoms: Negative except as documented in HPI. ENMT symptoms: Negative except as documented in HPI. Respiratory symptoms: Negative except as documented in HPI. Cardiovascular symptoms: Negative except as documented in HPI. Gastrointestinal symptoms: Negative except as documented in HPI. Genitourinary symptoms: Negative except as documented in HPI. Musculoskeletal symptoms: Negative except as documented in HPI. Neurologic symptoms: Negative except as documented in HPI. Psychiatric symptoms: Negative except as documented in HPI. Endocrine symptoms: Negative except as documented in HPI. FOR[facility] ED 2 PFS: Medical History Anesthesia complication prolonged sedation after anesthesia 06/26/2022 requiring ICU monitoring but no other intervention, not responsive to narcan; took 5-6 hours to wake up after surgery. Only thing identified is he had not slept for several days prior to surgery. Chronic migraine Depression Prediabetes History of narcotic use with prior pain treatment contract, not using regular narcotic pain control as of 06/26/2022 History of psychiatric care Acute encephalopathy Hypertension GERD (gastroesophageal reflux disease) Hyperlipidemia History of electroencephalogram 11/04/20 This was a normal routine EEG, awake and drowsy and asleep, with no behavioral or electrographic epileptiform activity. This patient was excessively sleepy and was not sleep deprived. Consider a sleep disorder if clinically appropriate. Bipolar disorder Gout [place] tick fever History of Holter monitoring 09/2019 baseline sinus tachycardia with heart rate of 135 bpm, no pauses or bradycardia, diminished heart rate variability 12/2019 baseline sinus rhythm at 94 bpm, symptomatic sinus tachycardia with heart rate 72-126 bpm Psychiatric care Hyperparathyroidism s/p partial parathyroidectomy Bleeding per rectum Had anoscope done by Dr Garcia 08/30/2020 with no fistulae, sinuses, induration, abscess formation or fissures = normal findings Other stimulant dependence, in remission prior methamphetamine use Bilateral renal stones Has seen Dr Bhatti in past, non-obstructive, remote lithotripsy, otherwise monitored for symptoms Cervical disc disease With cervical radiculopathy, spondylosis, spondylosis with myelopathy B12 deficiency 09/2019 Generalized anxiety disorder Cannabis dependence, uncomplicated history, unknown if still using as of 06/26/2022 Carpal tunnel syndrome, left upper limb by nerve conduction study performed 05/2019, has not had surgery as of 06/26/2022 Surgical History Status post cervical discectomy 06/26/2022 Dr Mcghee anterior cervical discectomy C4/C5 with insertion of cage, instrumentation with anterior plate C4-C5, with C4-C7 posterior fusion and instrumentation, use of allograft History of esophagogastroduodenoscopy (EGD) 2015 History of colonoscopy 2016 S/P extracorporeal shock wave therapy History of parathyroidectomy partial, performed by Dr Henderson, never followed-up after surgery History of lumbar laminectomy 09/01/2020 Dr Mcghee L4/5 with bilateral partial facetectomy History of neck surgery 03/24/2020 Dr Mcghee Anterior discectomy with insertion of cage/instrumentation/use of allograft and anterior plate at C5/6 & C6/7 History of cholecystectomy History of knee surgery Left knee arthroscopy 08/[address] Campbell, had MRSA Family History Brother Hypertension Valvular heart disease Grandfather Hypertension History of open heart surgery Father History of open heart surgery Social History Smoking and tobacco/nicotine status: current every day tobacco/nicotine user cigarettes Years cigarettes smoked: 35 Alcohol intake: current Alcohol intake frequency: few times a week Alcohol type: beer Substance/Drug Use: former Household members: other Details: lives with mother who is a former [employer] [facility] [place] nurse Marital status: Current occupational status: unemployed and disabled Physical Exam 2 Narrative: EXAM NARRATIVE: General: Alert, no acute distress. Skin: Warm, dry. Head: Normocephalic, atraumatic. Neck: Supple, trachea midline. Eye: Extraocular movements are intact. Ears, nose, mouth and throat: mucosa moist. Cardiovascular: Regular, Normal peripheral perfusion. Respiratory: Lungs are clear to auscultation, respirations are non-labored, breath sounds are equal, Symmetrical chest wall expansion. Gastrointestinal: Soft, epigastric pain, Non distended Musculoskeletal: Normal ROM, no deformity. Neurological: Alert and oriented, No focal neurological deficit observed. Psychiatric: Cooperative, appropriate mood & affect. Course 2 Vital Signs: Vital signs: Vital Signs Pulse Rate 96 03/14/24 03:11 Respiratory Rate 20 H 03/14/24 03:11 Blood Pressure 100/75 03/14/24 03:11 Pulse Oximetry 93 03/14/24 03:11 Oxygen Delivery Me thod Room Air 03/14/24 00:45 MDM - Chest Pain Medical Decision Making Medical decision making: Differential diagnosis including but not limited to and based on the above HPI, review of systems and physical exam: In this patient with epigastric pain differential would include cholelithiasis or cholecystitis. Hepatitis. Diverticulitis. Constipation. UTI. colitis. small bowel obstruction. crohn's flare. pancreatitis. gastritis. peptic ulcer. also concern for acute cardiac event. Orders placed to evaluate differential diagnosis based on the above differential, HPI and physical exam EKG: Time 2346. Rate 97. Nonspecific ST wave abnormality. Normal sinus rhythm, no ectopy, normal MT & QRS intervals, This was reviewed and interpreted by myself the ER physician at 2350. Repeat EKG: Time 1:46 AM. Rate 90. Still with some nonspecific ST abnormalities. Unchanged from previous EKG. Normal sinus rhythm, No ST-T changes, no ectopy, normal MT & QRS intervals, This was reviewed and interpreted by myself the ER physician at 1:50 AM. Chest x-ray: LifeVest in place no acute process. No infiltrate. No pneumothorax. This was reviewed and interpreted by myself the emergency room physician. I also reviewed the radiology report. Lab Review: Laboratory results were reviewed and interpreted by myself the emergency room physician. No leukocytosis. No anemia. BUN/creatinine are stable at 20 and 1 and 1.4. Does have a mild elevation in his lipase at 132. Perhaps he has some early pancreatitis. His symptoms are consistent. I reviewed the patient's medical record. Reexamination: Patient remained stable. No increased work of breathing. No altered mental status. No focal motor deficits. Consultation: I spoke with Dr. Fan who agrees to admission. CT of the abdomen pelvis without contrast: No acute process other than maybe some mild enteritis. This was reviewed and interpreted by myself the emergency room physician. I also reviewed the radiology report. Assessment and plan: Pancreatitis Coronary artery disease -I discussed the patient with the hospitalist on-call who is admitting the patient. - Discussed findings and plan with patient. Answered any questions. - All laboratory values were reviewed and interpreted personally by myself, the ER physician - All imaging was reviewed and interpreted personally by myself, the ER physician. - Evaluation and treatment of this problem were appropriate in the emergency setting Lab Data 03/13/24 00:07 03/14/24 00:27 Radiology Impressions Chest X-Ray 03/13/24 23:49 IMPRESSION: As above. Abdomen/Pelvis CT 03/14/24 01:10 IMPRESSION: Findings suggesting mild enteritis. COMMENTS: Consistent with the [employer] [place] [employer]'s Incidental Findings Committee white paper (J Am Arline Radiol 2018): Any incidental renal lesion less than 1 cm or classified as too small to characterize, or any incidental cystic renal lesion characterized as simple-appearing, is likely benign. No follow-up imaging is recommended for these lesions per consensus recommendations based on imaging criteria. Laboratory Results WBC 9.13 10^3/uL (3.29-11.43) 03/13/24 00:07 RBC 4.40 10^6/uL (3.85-5.65) 03/13/24 00:07 Hgb 12.10 g/dL (11.27-16.99) 03/13/24 00:07 Hct 39.1 % (37-53) 03/13/24 00:07 MCV 88.9 fl (82-101) 03/13/24 00:07 MCH 27.5 pg (27-33) 03/13/24 00:07 MCHC 30.9 g/dL (30-55) 03/13/24 00:07 RDW 14.8 % (12.1-15.1) 03/13/24 00:07 Plt Count 425 10^3/cmm (157-399) H 03/13/24 00:07 MPV 9.6 fL (7.4-10.4) 03/13/24 00:07 Neut % (Auto) 61.6 % 03/13/24 00:07 Lymph % (Auto) 24.3 % 03/13/24 00:07 [place] % (Auto) 10.1 % 03/13/24 00:07 Eos % (Auto) 3.5 % 03/13/24 00:07 Baso % (Auto) 0.2 % 03/13/24 00:07 Neut # (Auto) 5.62 10^3/uL (1.8-7.7) 03/13/24 00:07 Lymph # (Auto) 2.2 10^3/uL (0.8-4.8) 03/13/24 00:07 [place] # (Auto) 0.9 10^3/uL (0.2-0.9) 03/13/24 00:07 Eos # (Auto) 0.3 10^3/uL (0.0-0.8) 03/13/24 00:07 Baso # (Auto) 0.0 10^3/uL (0.0-0.1) 03/13/24 00:07 Nucleated RBC % (auto) 0 % 03/13/24 00:07 Nucleated RBCs # 0.0 /100WBC 03/13/24 00:07 Sodium 133 mmol/L (136-145) L 03/14/24 00:27 Potassium 4.2 mmol/L (3.5-5.1) 03/14/24 00:27 Chloride 99 mmol/L (98-107) 03/14/24 00:27 Carbon Dioxide 22 mmol/L (22-29) 03/14/24 00:27 Anion Gap 16.2 (5-19) 03/14/24 00:27 BUN 21 mg/dL (6-20) H 03/14/24 00:27 Creatinine 1.4 mg/dL (0.7-1.2) H 03/14/24 00:27 GFR Calculation 52.8 mL/min (90-130) L 03/14/24 00:27 Glucose 130 mg/dL (65-115) H 03/14/24 00:27 POC Glucose 111 mg/dL (70-110) H 03/13/24 23:57 Calculated Osmolality 281 mOsm/kg (285-295) L 03/14/24 00:27 Lactic Acid 1.8 mmol/L (0.5-2.2) 03/14/24 00:07 Calcium 9.4 mg/dL (8.5-10.5) 03/14/24 00:27 Total Bilirubin 0.5 mg/dL (0.15-1.2) 03/14/24 00:27 AST 31 U/L (0-40) 03/14/24 00:27 ALT 27 U/L (0-41) 03/14/24 00:27 Alkaline Phosphatase 131 U/L (40-130) H 03/14/24 00:27 Troponin T Baseline 149 ng/L (0-15) H* 03/13/24 23:22 Troponin T 120 Minute 148.2 ng/L (0-15) H 03/14/24 01:20 Delta Troponin T -0.8 ABS# (0-10) L 03/14/24 01:20 NT-Pro-B Natriuret Pep 1891 pg/mL (0-125) H 03/14/24 00:27 Total Protein 7.2 g/dL (6.6-8.7) 03/14/24 00:27 Albumin 3.8 g/dL (3.5-5.2) 03/14/24 00:27 Globulin 3.4 g/dL (1.3-4.6) 03/14/24 00:27 Lipase 132 U/L (13-60) H 03/14/24 00:27 Urine Color Dark yellow (Yellow) A 03/14/24 00:30 Urine Appearance Slightly cloudy (CLEAR) 03/14/24 00:30 Urine pH 5.0 (5-7) 03/14/24 00:30 Ur Specific Sneads 1.024 (1.005-1.030) 03/14/24 00:30 Urine Protein Negative (Negative) 03/14/24 00:30 Urine Glucose (UA) Negative (Normal) 03/14/24 00:30 Urine Ketones Trace (Negative) 03/14/24 00:30 Urine Blood Negative (Negative) 03/14/24 00:30 Urine Nitrate Negative (Negative) 03/14/24 00:30 Urine Bilirubin Negative (Negative) 03/14/24 00:30 Urine Urobilinogen 1.0 mg/dL (Negative) 03/14/24 00:30 Ur Leukocyte Esterase Trace (Negative) A 03/14/24 00:30 Urine RBC 0-2 /hpf (0-2) 03/14/24 00:30 Urine WBC 6-10 /hpf (0-5) 03/14/24 00:30 Ur Squamous Epith Cells 0-5 /hpf (0-5) 03/14/24 00:30 Amorphous Sediment Not Reportable 03/14/24 00:30 Urine Bacteria None seen /hpf (NONE) 03/14/24 00:30 Hyaline Casts 26.88 /lpf 03/14/24 00:30 All radiology interpretation(s) finalized by discharge Discharge Plan Discharge Patient Disposition: Admitted As Inpatient Admit Provider: Lisa Fan Clinical Impression: Pancreatitis, Ischemic cardiomyopathy Condition: Stable Coding Level of Care Code ED [employer] for Caty Juarez
[2024-03-14 00:27] LABS: Troponin(5th) Baseline 149 ng/L (0-15)
[2024-03-14 00:30] LABS: Lactic Sepsis W/Reflex 1.8 mmol/L (0.5-2.2)
--- NOTE | 2024-03-14 00:49 | P.HP_ITS ---
Providers/Chief Complaint 2 Primary Care Provider: Soto Escamilla MD Chief Complaint: chest Pain History of Present Illness Vivek Corral is a 53 year old male was discharged on 12 March after management of heart failure, ischemic cardiomyopathy, status post PCI to LAD and circumflex, chronic neck pain, migraine, hypertension, presenting today with worsening of nausea vomiting abdominal pain. Patient is stating that before his discharge patient was experiencing metallic taste with nausea which got worse when he went home he has been experiencing nausea vomiting he thinks he has taken his dual antiplatelet therapy but he is not 100% sure. Denying alcohol use, endorsing smoking. In the ER his lipase was high requested CT abdomen pelvis report is pending, troponins are high after recent angioplasty, not complaining of chest pain at the time of my evaluation. Patient was given loading dose of aspirin by the EMS. He has ejection fraction of 15% systolic CHF was recently treated for bronchopneumonia and acute hypoxic respiratory failure recently he was diuresed aggressively over 18 L He was discharged on aspirin and Plavix Review of Systems 2 Const: Reports: body aches and fatigue; Denies: fever(s) Eyes: Denies: change in vision ENMT: Denies: throat pain Card: Denies: chest pain Resp: Reports: dyspnea GI: Reports: abdominal pain, nausea and vomiting Medications/Allergies Home Medications Medication Instructions Recorded Confirmed Last Taken Type pantoprazole 40 mg tablet,delayed 40 mg PO DAILY 07/17/21 03/04/24 06/25/22 History release allopurinol 300 mg tablet 300 mg PO DAILY 03/04/24 03/04/24 Unknown History colchicine 0.6 mg tablet 2 mg PO ONCE PRN gout 03/04/24 03/04/24 Unknown History diazepam 2 mg tablet 2 mg PO DAILY PRN Anxiety 03/04/24 03/04/24 Unknown History aspirin 81 mg tablet,delayed 81 mg PO DAILY 30 days #30 tabs 03/12/24 Unknown Rx release atorvastatin 40 mg tablet 40 mg PO BEDTIME 30 days #30 tabs 03/12/24 Unknown Rx clopidogrel 75 mg tablet 75 mg PO DAILY 30 days #30 tabs 03/12/24 Unknown Rx doxycycline monohydrate 100 mg 100 mg PO BID 5 days #10 tabs 03/12/24 Unknown Rx tablet losartan 25 mg tablet 12.5 mg (1/2 x 25 mg) PO DAILY 30 03/12/24 Unknown Rx days #15 tabs nitroglycerin 0.4 mg sublingual 0.4 mg sublingual Q5M PRN Chest 03/12/24 03/04/24 Unknown Rx tablet Pain 30 days #30 tabs nystatin 100,000 unit/gram topical 1 applic topical BID 7 days #30 03/12/24 Unknown Rx powder (Nystop) grams Allergies Allergy/AdvReac Type Severity Reaction Status Date / Time sulfamethoxazole Allergy SWOLLEN Verified 01/03/24 14:17 [From ] TONGUE trimethoprim [From ] Allergy SWOLLEN Verified 01/03/24 14:17 TONGUE PFSH Acute 2 PFSH: Medical History Anesthesia complication prolonged sedation after anesthesia 06/26/2022 requiring ICU monitoring but no other intervention, not responsive to narcan; took 5-6 hours to wake up after surgery. Only thing identified is he had not slept for several days prior to surgery. Chronic migraine Depression Prediabetes History of narcotic use with prior pain treatment contract, not using regular narcotic pain control as of 06/26/2022 History of psychiatric care Acute encephalopathy Hypertension GERD (gastroesophageal reflux disease) Hyperlipidemia History of electroencephalogram 11/04/20 This was a normal routine EEG, awake and drowsy and asleep, with no behavioral or electrographic epileptiform activity. This patient was excessively sleepy and was not sleep deprived. Consider a sleep disorder if clinically appropriate. Bipolar disorder Gout [place] tick fever History of Holter monitoring 09/2019 baseline sinus tachycardia with heart rate of 135 bpm, no pauses or bradycardia, diminished heart rate variability 12/2019 baseline sinus rhythm at 94 bpm, symptomatic sinus tachycardia with heart rate 72-126 bpm Psychiatric care Hyperparathyroidism s/p partial parathyroidectomy Bleeding per rectum Had anoscope done by Dr Garcia 08/30/2020 with no fistulae, sinuses, induration, abscess formation or fissures = normal findings Other stimulant dependence, in remission prior methamphetamine use Bilateral renal stones Has seen Dr Bhatti in past, non-obstructive, remote lithotripsy, otherwise monitored for symptoms Cervical disc disease With cervical radiculopathy, spondylosis, spondylosis with myelopathy B12 deficiency 09/2019 Generalized anxiety disorder Cannabis dependence, uncomplicated history, unknown if still using as of 06/26/2022 Carpal tunnel syndrome, left upper limb by nerve conduction study performed 05/2019, has not had surgery as of 06/26/2022 Surgical History Status post cervical discectomy 06/26/2022 Dr Mcghee anterior cervical discectomy C4/C5 with insertion of cage, instrumentation with anterior plate C4-C5, with C4-C7 posterior fusion and instrumentation, use of allograft History of esophagogastroduodenoscopy (EGD) 2015 History of colonoscopy 2015 S/P extracorporeal shock wave therapy History of parathyroidectomy partial, performed by Dr Henderson, never followed-up after surgery History of lumbar laminectomy 09/01/2020 Dr Mcghee L4/5 with bilateral partial facetectomy History of neck surgery 03/24/2020 Dr Mcghee Anterior discectomy with insertion of cage/instrumentation/use of allograft and anterior plate at C5/6 & C6/7 History of cholecystectomy History of knee surgery Left knee arthroscopy 08/[address] Campbell, had MRSA Family History Brother Hypertension Valvular heart disease Grandfather Hypertension History of open heart surgery Father History of open heart surgery Social History Smoking and tobacco/nicotine status: current every day tobacco/nicotine user cigarettes Years cigarettes smoked: 35 Alcohol intake: current Alcohol intake frequency: few times a week Alcohol type: beer Substance/Drug Use: former Household members: other Details: lives with mother who is a former [employer] [place] Marital status: Current occupational status: unemployed and disabled Vitals/I&O/Wt Last Vital Signs Pulse 95 03/14/24 00:45 Resp 18 03/14/24 00:45 BP 101/66 03/14/24 00:45 Pulse Ox 96 03/14/24 00:45 O2 Del Method Room Air 03/14/24 00:45 Weight last 48 hrs Weight 77.111 kg Physical Exam 2 Narrative: Patient clinically does not look fluid overloaded Currently on room air Hemodynamically stable No active chest pain Complaining of epigastric region pain Pale complexion Nonfocal neuroexam In distress Data 03/13/24 00:07 03/14/24 00:27 A&P Assessment and plan (1) Hypertension: Qualifiers: Hypertension type: primary hypertension Qualified Code(s): I10 - Essential (primary) hypertension (2) Cardiomyopathy: Qualifiers: Cardiomyopathy type: other Qualified Code(s): I42.8 - Other cardiomyopathies (3) Ischemic cardiomyopathy: (4) Chronic migraine without aura, intractable, with status migrainosus: (5) Status post cervical discectomy: (6) Nicotine dependence, cigarettes, uncomplicated: (7) Pancreatitis: Plan Recurrent nausea vomiting Check drug screen High lipase CT abdomen pelvis recommended Report is pending Recent angioplasty continue dual antiplatelet therapy Stent was placed in LAD and left circumflex patient is waiting his LifeVest for ischemic cardiomyopathy Troponin elevation is likely secondary to recent angioplasty History of hypertension currently patient is normotensive monitor closely for now ZOEY: Likely related to overdiuresis and nausea vomiting Patient clinically does not look fluid overloaded avoid losartan Patient was recently treated for pneumonia, not requiring oxygen at this point Full code Clear liquid diet further plan will be made after reviewing CT scan report DVT prophylaxis heparin Attestations 2 Medical Necessity Statement*: Anticipating discharge within 48 hours Diagnoses Primary hypertension I10 Hypertension type: primary hypertension Other cardiomyopathy I42.8 Cardiomyopathy type: other Ischemic cardiomyopathy I25.5 Chronic migraine without aura, intractable, with status migrainosus G43.711 Status post cervical discectomy Z98.890 Nicotine dependence, cigarettes, uncomplicated F17.210 Pancreatitis K85.90
[2024-03-14 00:52] LABS: Bacteria Urine None Seen /hpf; Hyaline Casts Urine 26.88 /lpf; RBC Urine 0-2 /hpf (0-2); Squamous Epithelial Cell Urine 0-5 /hpf (0-5)
[2024-03-14 01:03] LABS: Alanine Aminotransferase 27 U/L (0-41); Albumin Level 3.8 g/dL (3.5-5.2); Alkaline Phosphatase 131 U/L (40-130); Blood Urea Nitrogen 21 mg/dL (6-20); Calcium 9.4 mg/dL (8.5-10.5); Carbon Dioxide 22 mmol/L (22-29); Chloride 99 mmol/L (98-107); Creatinine Clr Calc Pharmacy 58.9752; Globulin 3.4 g/dL (1.3-4.6); Glomerular Filtration Rate 52.8 mL/min (90-130); Glucose 130 mg/dL (65-115); Lipase 132 U/L (13-60); Osmolality Calculated 281 mOsm/kg (285-295); Sodium 133 mmol/L (136-145); Total Bilirubin 0.5 mg/dL (0.15-1.2); Total Protein 7.2 g/dL (6.6-8.7)
[2024-03-14 01:04] LABS: Anion Gap 16.2 (5-19); Aspartate Amino Transferase 31 U/L (0-40); Potassium 4.2 mmol/L (3.5-5.1)
[2024-03-14 01:05] LABS: Bilirubin Urine Negative (Negative); Blood Urine Negative (Negative); Glucose Urine UA Negative (Normal); Ketones Urine Trace (Negative); Leukocyte Esterase Urine Trace (Negative); Nitrate Urine Negative (Negative); Protein Urine Negative (Negative); Specific Gravity, Urine 1.024 (1.005-1.030); Urine Appearance Slightly Cloudy (CLEAR); Urine Color Dark Yellow (Yellow)
[2024-03-14 01:06] LABS: UA Slide Review UA Slide Review Perf
[2024-03-14 01:06] LABS: NT Pro B Type Natriuretic Pept 1891 pg/mL (0-125)
--- NOTE | 2024-03-14 01:10 | CTR_ITS ---
PROCEDURE INFORMATION: Exam: CT Abdomen And Pelvis With Contrast Exam date and time: 03/14/2024 2:04 AM Age: 53 years old Clinical indication: Abdominal tenderness and bloating and vomiting; Prior surgery; Surgery date: 6+ months; Surgery type: Choley; Additional info: Abdominal pain TECHNIQUE: Imaging protocol: Computed tomography of the abdomen and pelvis with contrast. Radiation optimization: All CT scans at this facility use at least one of these dose optimization techniques: automated exposure control; mA and/or kV adjustment per patient size (includes targeted exams where dose is matched to clinical indication); or iterative reconstruction. Contrast material: OMNI 350; Contrast volume: 100 ml; Contrast route: INTRAVENOUS (IV); COMPARISON: CT abdomen pelvis wo con [id number] 03/05/2024 7:49 PM RADIATION DOSE METRICS: Total DLP (mGy-cm): 723.1 FINDINGS: Heart: There is mild cardiomegaly. Coronary arteries: There is atherosclerotic calcification coronary arteries. Diaphragm: There is a small hiatal hernia. Liver: Benign hepatic cysts noted measuring up to 3.9 cm. Gallbladder and biliary ducts: There has been cholecystectomy. Pancreas: Normal. No ductal dilation. Spleen: Normal. No splenomegaly. Adrenal glands: Normal. No mass. Kidneys and ureters: There are benign renal cysts measuring up to 4.3 cm. Small nonobstructive renal stones. No hydronephrosis. Stomach and bowel: Mild diverticulosis is noted. No evidence of diverticulitis. No obstruction. Moderate retained distal colonic stool. There are mildly prominent small bowel loops throughout the abdomen with mild mucosal thickening suggesting mild enteritis. Appendix: No evidence of appendicitis. Intraperitoneal space: Unremarkable. No free air. No significant fluid collection. Vasculature: Unremarkable. No abdominal aortic aneurysm. Lymph nodes: Unremarkable. No enlarged lymph nodes. Urinary bladder: Small amount of air or gas in the urinary bladder. Bladder otherwise normal. Reproductive: Unremarkable as visualized. Bones/joints: Unremarkable. No acute fracture. Soft tissues: Unremarkable. CT/CT abdomen pelvis w con* [id number] IMPRESSION: Findings suggesting mild enteritis. COMMENTS: Consistent with the [place] [employer]'s Incidental Findings Committee white paper (J Am Arline Radiol 2018): Any incidental renal lesion less than 1 cm or classified as too small to characterize, or any incidental cystic renal lesion characterized as simple-appearing, is likely benign. No follow-up imaging is recommended for these lesions per consensus recommendations based on imaging criteria.
--- NOTE | 2024-03-14 01:52 | ECG_ITS ---
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 Measurements Intervals [place] Rate: 90 P: 53 ND: 179 QRS: -18 QRSD: 105 T: 123 QT: 415 QTc: 510 Interpretive Statements SINUS RHYTHM POSSIBLE LEFT ATRIAL ENLARGEMENT [-0.1mV P-WAVE IN V1/V2] LOW QRS VOLTAGE IN PRECORDIAL LEADS [QRS DEFLECTION < 1.0 mV IN CHEST LEADS] SEPTAL MYOCARDIAL INFARCTION , OF INDETERMINATE AGE [40+ ms Q WAVE IN V1/V2] MODERATE T-WAVE ABNORMALITY, CONSIDER ANTEROLATERAL ISCHEMIA [-0.1+ mV T-WAVE IN V3-V6] Compared to ECG 03/06/2024 23:32:03 T-wave abnormality now present Possible ischemia now present Myocardial infarct finding still present Electronically Signed On 03-14-2024 17:00:43 DIE OUT WORKER by Siobhan Gee M.D. [id number]
[2024-03-14 01:58] LABS: Troponin 5 2HR 148.2 ng/L (0-15); Troponin 5 2HR Delta -0.8 ABS# (0-10)
[2024-03-14] MEDS: iohexol 350 mg/mL 500 mL Btl (per mL) IV (02:07)
[2024-03-14] MEDS: morphine 4 mg/mL SDV 1 mL 2 MG IVP ×4 (02:21→12:40)
[2024-03-14] MEDS: heparin 5,000 unit/mL INJ 1 mL 5000 UNIT SUBCUT (04:41)
[2024-03-14] MEDS: piperacillin-tazobactam 3.375 GM in sodium chloride 0.9% (plus) 50 ML IV ×2 (04:42→12:41)
[2024-03-14 05:49] LABS: Basophils % 0.3 %; Eosinophils # 0.3 10^3/uL (0.0-0.8); Eosinophils % 2.9 %; Hematocrit 39.9 % (37-53); Lymphocytes # 2.5 10^3/uL (0.8-4.8); Lymphocytes % 24.9 %; Mean Corpuscular HGB Conc 30.1 g/dL (30-55); Mean Corpuscular Hemoglobin 27.5 pg (27-33); Mean Corpuscular Volume 91.3 fl (82-101); Mean Platelet Volume 9.6 fL (7.4-10.4); Monocytes # 0.8 10^3/uL (0.2-0.9); Monocytes % 8.3 %; Neutrophils # 6.35 10^3/uL (1.8-7.7); Neutrophils % 63.3 %; Nucleated Red Blood Cells % 0 %; Platelet Count 419 10^3/cmm (157-399); Red Blood Count 4.37 10^6/uL (3.85-5.65); Red Cell Distribution Width 14.8 % (12.1-15.1); White Blood Count 10.03 10^3/uL (3.29-11.43)
--- NOTE | 2024-03-14 05:52 | ECG_ITS ---
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 Measurements Intervals [place] Rate: 84 P: 49 IN: 185 QRS: -19 QRSD: 96 T: 164 QT: 410 QTc: 487 Interpretive Statements SINUS RHYTHM LEFT ATRIAL ENLARGEMENT [-0.15mV P-WAVE IN V1/V2] ANTEROSEPTAL MYOCARDIAL INFARCTION , PROBABLY RECENT [40+ ms Q WAVE IN V1-V4] ACUTE AL Compared to ECG 03/14/2024 01:46:14 T-wave abnormality no longer present Possible ischemia no longer present Myocardial infarct finding still present Electronically Signed On 03-14-2024 17:00:47 BELT BUILDER HELPER by Siobhan Gee M.D. [id number]
[2024-03-14 06:10] LABS: Alanine Aminotransferase 25 U/L (0-41); Albumin Level 3.8 g/dL (3.5-5.2); Alkaline Phosphatase 129 U/L (40-130); Anion Gap 14.3 (5-19); Aspartate Amino Transferase 24 U/L (0-40); Blood Urea Nitrogen 21 mg/dL (6-20); Calcium 9.7 mg/dL (8.5-10.5); Carbon Dioxide 27 mmol/L (22-29); Chloride 97 mmol/L (98-107); Creatinine Clr Calc Pharmacy 60.5075; Glomerular Filtration Rate 52.8 mL/min (90-130); Glucose 115 mg/dL (65-115); Magnesium 1.7 mg/dL (1.7-2.3); Osmolality Calculated 282 mOsm/kg (285-295); Potassium 4.3 mmol/L (3.5-5.1); Sodium 134 mmol/L (136-145); Total Bilirubin 0.5 mg/dL (0.15-1.2); Total Protein 6.8 g/dL (6.6-8.7); Troponin 5 6HR Delta -8.4 ng/L (0-12)
[2024-03-14 06:11] LABS: Troponin 5 6HR 140.6 ng/L (0-15)
[2024-03-14] MEDS: ondansetron 2 mg/ML SDV 2 mL 4 MG IVP (07:23)
--- NOTE | 2024-03-14 07:30 | PC.NURSE ---
ondansetron given for nausea
[2024-03-14] MEDS: clopidogrel 75 mg Tablet PO (08:32)
[2024-03-14] MEDS: allopurinol 300 mg Tablet PO (08:32)
[2024-03-14] MEDS: pantoprazole DR 40 mg Tablet PO (08:32)
[2024-03-14] MEDS: aspirin 81 mg EC Tablet PO (08:32)
--- NOTE | 2024-03-14 13:00 | PM.MISC ---
Miscellaneous Note Note: vomitting has resolved nausea improved ct abd shows possible enteritis zosyn iv on board advance to gi soft if tolerates gi soft, and no longer vomiting, consider dc home today.
[2024-03-14] MEDS: acetaminophen 325 mg Tablet 650 MG PO (15:40)
--- NOTE | 2024-03-14 15:48 | PM.DCS ---
Discharge Providers Date of Admission: 03/14/24 02:42 Date of Discharge: March 14, 2024 Attending Provider at Admission: Lisa Fan MD Attending Provider at Discharge: Aide Bowers MD Primary Care Provider: Soto Escamilla MD Diagnoses at Discharge Discharge Diagnosis (1) Hypertension: Status: Chronic Qualifiers: Hypertension type: primary hypertension Qualified Code(s): I10 - Essential (primary) hypertension (2) Cardiomyopathy: Status: Acute Qualifiers: Cardiomyopathy type: other Qualified Code(s): I42.8 - Other cardiomyopathies (3) Ischemic cardiomyopathy: Status: Acute (4) Chronic migraine without aura, intractable, with status migrainosus: Status: Chronic (5) Status post cervical discectomy: Status: Acute Permanent problem details: 06/26/2022 Dr Mcghee anterior cervical discectomy C4/C5 with insertion of cage, instrumentation with anterior plate C4-C5, with C4-C7 posterior fusion and instrumentation, use of allograft (6) Nicotine dependence, cigarettes, uncomplicated: Status: Chronic Permanent problem details: Strongly advised to quit smoking (7) Pancreatitis: Status: Resolved Reason for Visit Reason for Visit: chest Pain Hospital Course Hospital Course Patient presented to the hospital with nausea vomiting. That had resolved by the time he was seen by fiction and nonfiction writer prose. CT abdomen pelvis reviewed. Lipase was high. He was monitored conservatively. Patient was discharged home with Cipro and Flagyl for 4 more days. He was kept on Zosyn during hospitalization. Towards the afternoon after day of admission patient improved and tolerated oral diet. He was discharged home in stable condition. Of note he was discharged 1 day before this hospital admission in stable condition with a LifeVest. Physical Exam Narrative: Patient clinically does not look fluid overloaded Currently on room air Hemodynamically stable No active chest pain denies abd pain, non tender, soft Nonfocal neuroexam No acute distress Discharge Data Studies Completed and Pending Completed Studies During Hospitalization Category Date Time Status CT abdomen pelvis w con* [id number] Stat Cat Scan 03/14/24 01:10 Completed XR chest 1V portable [id number] Stat Exams 03/13/24 23:49 Completed Pending at discharge Category Date Time Status Basic Metabolic Panel AM LABS Lab 03/15/24 04:00 Ordered Complete Blood Count w/Auto AM LABS Lab 03/15/24 04:00 Ordered Magnesium AM LABS Lab 03/15/24 04:00 Ordered Radiology Impressions Chest X-Ray 03/13/24 23:49 IMPRESSION: As above. Abdomen/Pelvis CT 03/14/24 01:10 IMPRESSION: Findings suggesting mild enteritis. COMMENTS: Consistent with the [employer]'s Incidental Findings Committee white paper (J Am Arline Radiol 2018): Any incidental renal lesion less than 1 cm or classified as too small to characterize, or any incidental cystic renal lesion characterized as simple-appearing, is likely benign. No follow-up imaging is recommended for these lesions per consensus recommendations based on imaging criteria. Laboratory Results WBC 10.03 10^3/uL (3.29-11.43) 03/14/24 05:39 RBC 4.37 10^6/uL (3.85-5.65) 03/14/24 05:39 Hgb 12.00 g/dL (11.27-16.99) 03/14/24 05:39 Hct 39.9 % (37-53) 03/14/24 05:39 MCV 91.3 fl (82-101) 03/14/24 05:39 MCH 27.5 pg (27-33) 03/14/24 05:39 MCHC 30.1 g/dL (30-55) 03/14/24 05:39 RDW 14.8 % (12.1-15.1) 03/14/24 05:39 Plt Count 419 10^3/cmm (157-399) H 03/14/24 05:39 MPV 9.6 fL (7.4-10.4) 03/14/24 05:39 Neut % (Auto) 63.3 % 03/14/24 05:39 Lymph % (Auto) 24.9 % 03/14/24 05:39 White % (Auto) 8.3 % 03/14/24 05:39 Eos % (Auto) 2.9 % 03/14/24 05:39 Baso % (Auto) 0.3 % 03/14/24 05:39 Neut # (Auto) 6.35 10^3/uL (1.8-7.7) 03/14/24 05:39 Lymph # (Auto) 2.5 10^3/uL (0.8-4.8) 03/14/24 05:39 White # (Auto) 0.8 10^3/uL (0.2-0.9) 03/14/24 05:39 Eos # (Auto) 0.3 10^3/uL (0.0-0.8) 03/14/24 05:39 Baso # (Auto) 0.0 10^3/uL (0.0-0.1) 03/14/24 05:39 Nucleated RBC % (auto) 0 % 03/14/24 05:39 Nucleated RBCs # 0.0 /100WBC 03/14/24 05:39 Sodium 134 mmol/L (136-145) L 03/14/24 05:39 Potassium 4.3 mmol/L (3.5-5.1) 03/14/24 05:39 Chloride 97 mmol/L (98-107) L 03/14/24 05:39 Carbon Dioxide 27 mmol/L (22-29) 03/14/24 05:39 Anion Gap 14.3 (5-19) 03/14/24 05:39 BUN 21 mg/dL (6-20) H 03/14/24 05:39 Creatinine 1.4 mg/dL (0.7-1.2) H 03/14/24 05:39 GFR Calculation 52.8 mL/min (90-130) L 03/14/24 05:39 Glucose 115 mg/dL (65-115) 03/14/24 05:39 POC Glucose 111 mg/dL (70-110) H 03/13/24 23:57 Calculated Osmolality 282 mOsm/kg (285-295) L 03/14/24 05:39 Lactic Acid 1.8 mmol/L (0.5-2.2) 03/14/24 00:07 Calcium 9.7 mg/dL (8.5-10.5) 03/14/24 05:39 Magnesium 1.7 mg/dL (1.7-2.3) 03/14/24 05:39 Total Bilirubin 0.5 mg/dL (0.15-1.2) 03/14/24 05:39 AST 24 U/L (0-40) 03/14/24 05:39 ALT 25 U/L (0-41) 03/14/24 05:39 Alkaline Phosphatase 129 U/L (40-130) 03/14/24 05:39 Troponin T Baseline 149 ng/L (0-15) H* 03/13/24 23:22 Troponin T 120 Minute 148.2 ng/L (0-15) H 03/14/24 01:20 Delta Troponin T -0.8 ABS# (0-10) L 03/14/24 01:20 Troponin T Hi Sens 6Hr 140.6 ng/L (0-15) H 03/14/24 05:39 Troponin T Hi Sens 6Hr Delta -8.4 ng/L (0-12) L 03/14/24 05:39 NT-Pro-B Natriuret Pep 1891 pg/mL (0-125) H 03/14/24 00:27 Total Protein 6.8 g/dL (6.6-8.7) 03/14/24 05:39 Albumin 3.8 g/dL (3.5-5.2) 03/14/24 05:39 Globulin 3.0 g/dL (1.3-4.6) 03/14/24 05:39 Lipase 132 U/L (13-60) H 03/14/24 00:27 Urine Color Dark yellow (Yellow) A 03/14/24 00:30 Urine Appearance Slightly cloudy (CLEAR) 03/14/24 00:30 Urine pH 5.0 (5-7) 03/14/24 00:30 Ur Specific [place] 1.024 (1.005-1.030) 03/14/24 00:30 Urine Protein Negative (Negative) 03/14/24 00:30 Urine Glucose (UA) Negative (Normal) 03/14/24 00:30 Urine Ketones Trace (Negative) 03/14/24 00:30 Urine Blood Negative (Negative) 03/14/24 00:30 Urine Nitrate Negative (Negative) 03/14/24 00:30 Urine Bilirubin Negative (Negative) 03/14/24 00:30 Urine Urobilinogen 1.0 mg/dL (Negative) 03/14/24 00:30 Ur Leukocyte Esterase Trace (Negative) A 03/14/24 00:30 Urine RBC 0-2 /hpf (0-2) 03/14/24 00:30 Urine WBC 6-10 /hpf (0-5) 03/14/24 00:30 Ur Squamous Epith Cells 0-5 /hpf (0-5) 03/14/24 00:30 Amorphous Sediment Not Reportable 03/14/24 00:30 Urine Bacteria None seen /hpf (NONE) 03/14/24 00:30 Hyaline Casts 26.88 /lpf 03/14/24 00:30 Vitals Last Vital Signs Temp 98.2 F 03/14/24 12:00 Pulse 95 03/14/24 12:00 Resp 20 H 03/14/24 12:40 BP 94/58 03/14/24 12:00 Pulse Ox 95 03/14/24 12:40 O2 Del Method Room Air 03/14/24 12:00 Discharge Plan Discharge Patient Disposition: Home Condition: Stable Prescriptions: New ciprofloxacin HCl [Cipro] 250 mg tablet 250 mg PO BID 4 Days Qty: 8 0RF metronidazole 500 mg tablet 500 mg PO BID 4 Days Qty: 8 0RF Continued pantoprazole 40 mg tablet,delayed release (DR/EC) 40 mg PO DAILY allopurinol 300 mg tablet 300 mg PO DAILY diazepam 2 mg tablet 2 mg PO DAILY PRN (Reason: Anxiety) colchicine 0.6 mg tablet 2 mg PO ONCE PRN (Reason: gout) atorvastatin 40 mg Tablet 40 mg PO BEDTIME 30 Days Qty: 30 0RF clopidogrel 75 mg Tablet 75 mg PO DAILY 30 Days Qty: 30 0RF aspirin 81 mg Tablet,Delayed Release (Dr/Ec) 81 mg PO DAILY 30 Days Qty: 30 0RF nystatin [Nystop] 100,000 unit/gram Powder 1 applic topical BID 7 Days Qty: 30 0RF nitroglycerin 0.4 mg tablet, sublingual 0.4 mg sublingual Q5M PRN (Reason: Chest Pain) 30 Days Qty: 30 0RF Discontinued losartan 25 mg tablet 12.5 mg PO DAILY 30 Days Qty: 15 0RF No Action doxycycline hyclate 100 mg tablet 100 mg PO DAILY Discharge Orders: Discharge Order (Routine); Ordered 03/14/24 Ordered By: Aide Bowers Referrals: Soto Escamilla MD [Primary Care Provider] - 4-7 days (Patient will need to follow [facility] to schedule an appointment ) Discharge Diet: GI Soft Discharge Activity: Resume usual activity Patient Instructions: Opioid Safety Discharge Attestations Time Spent in Discharge Care*: less than 30 min Status at Discharge: Cognitive status at discharge: cognitively intact, Behavioral status at discharge: cooperative, Quality Metrics Clinical Quality Measures [ No reported AMI, CVA or VTE this stay] Coding Level of Care Code Acute Code for Chg Fwd Diagnoses Primary hypertension I10 Hypertension type: primary hypertension Other cardiomyopathy I42.8 Cardiomyopathy type: other Ischemic cardiomyopathy I25.5 Chronic migraine without aura, intractable, with status migrainosus G43.711 Status post cervical discectomy Z98.890 Nicotine dependence, cigarettes, uncomplicated F17.210 Pancreatitis K85.90
--- NOTE | 2024-03-14 16:21 | PC.NURSE ---
[facility] called for patient ride at [phone]. Ride number [phone]
[2024-03-14] MEDS: lidocaine 2% viscous 15 ML, aluminum-mag hydrox-simethicon 30 ML, sucralfate oral liq 1 GM PO (16:32)
== END 2024-03-14 19:39 | disposition home or self-care (01) ==
LOC: ER 03-14 02:04 → CSU 03-14 03:01
PROVIDERS: Admitting Provider Internal Medicine; Emergency Provider Emergency Medicine; PCP Family Medicine; Visit Provider Internal Medicine
DX: K85.90 Acute pancreatitis without necrosis or infection, unspecified (principal); I10 Essential (primary) hypertension; I42.8 Other cardiomyopathies; I25.5 Ischemic cardiomyopathy; I25.10 Atherosclerotic heart disease of native coronary artery without angina pectoris; G43.711 Chronic migraine without aura, intractable, with status migrainosus; Z98.890 Other specified postprocedural states; F17.210 Nicotine dependence, cigarettes, uncomplicated; Z79.82 Long term (current) use of aspirin; N17.9 Acute kidney failure, unspecified; Z95.5 Presence of coronary angioplasty implant and graft; K21.9 Gastro-esophageal reflux disease without esophagitis; F32.A Depression, unspecified
CPT/HCPCS: 36415; 36416; 71045; 74177; 80053; 81001; 82962; 83605; 83690; 83735; 83880; 84484; 85025; 93005; 96365; 96372; 96375; 96376; 99285; G0378; J1644; J2270; J2405; J2543

== ENCOUNTER 2024-03-17 04:51 | Inpatient (IN) | payer MEDICAID, SELFPAY ==
[2024-03-17] VITALS (121 sets, daily range): BP systolic 86–141; BP diastolic 59–100; PULSE 98–115; RESP 8–44; TEMP 36.6–36.7; O2SAT 83–100; BMI 29.0; BMI 30.6
--- NOTE | 2024-03-17 04:51 | ECG_ITS ---
[facility] Test Date: 2024-03-17 Pat Name: Vivek Corral Department: Room: Gender: Male Saw Superintendent: : 1970 Requested By: Ashvin Gutierrez Order Number: [id number] Clemencia MD: HAYDEE ROGEL Measurements Intervals [place] Rate: 117 P: 65 VT: 164 QRS: 1 QRSD: 86 T: 84 QT: 436 QTc: 610 Interpretive Statements SINUS TACHYCARDIA SEPTAL MYOCARDIAL INFARCTION , OF INDETERMINATE AGE [40+ ms Q WAVE IN V1/V2] Compared to ECG 03/14/2024 06:02:11 Sinus rhythm no longer present Atrial abnormality no longer present Myocardial infarct finding still present Electronically Signed On 03-17-2024 16:07:32 LINING MACHINE OPERATOR by HAYDEE ROGEL [email or web address]
--- NOTE | 2024-03-17 04:55 | XRR_ITS ---
PROCEDURE INFORMATION: Exam: XR Chest Exam date and time: 03/17/2024 5:03 AM Age: 53 years old Clinical indication: Chest pressure; Prior surgery; Surgery date: 6+ months; Surgery type: Cervical fusion. Gb; Patient HX: C/O chest pain. Wearing life vest. ; Additional info: Cp TECHNIQUE: Imaging protocol: Radiologic exam of the chest. Views: 1 view. COMPARISON: CR (CHEST, ) 03/14/2024 12:15 AM FINDINGS: Tubes, catheters and devices: Life vest is in place. Lungs: Stable appearance of the lungs. Pleural spaces: Unremarkable. No pleural effusion. No pneumothorax. Heart/Mediastinum: Stable appearance of the cardiomediastinal silhouette. Bones/joints: Stable appearance of the osseous structures to include cervical spine hardware. XR/XR chest 1V portable [id number] IMPRESSION: No acute changes from 03/14/2024.
[2024-03-17 05:03] LABS: Basophils % 0.3 %; Eosinophils # 0.3 10^3/uL (0.0-0.8); Eosinophils % 2.9 %; Hematocrit 40.4 % (37-53); Lymphocytes # 3.1 10^3/uL (0.8-4.8); Lymphocytes % 26.1 %; Mean Corpuscular HGB Conc 30.9 g/dL (30-55); Mean Corpuscular Hemoglobin 27.4 pg (27-33); Mean Corpuscular Volume 88.6 fl (82-101); Mean Platelet Volume 10.2 fL (7.4-10.4); Monocytes # 0.8 10^3/uL (0.2-0.9); Monocytes % 6.6 %; Neutrophils # 7.44 10^3/uL (1.8-7.7); Neutrophils % 63.4 %; Nucleated Red Blood Cells % 0 %; Platelet Count 459 10^3/cmm (157-399); Red Blood Count 4.56 10^6/uL (3.85-5.65); Red Cell Distribution Width 15.1 % (12.1-15.1); White Blood Count 11.72 10^3/uL (3.29-11.43)
[2024-03-17] MEDS: morphine 4 mg/mL SDV 1 mL IVP (05:15)
[2024-03-17] MEDS: ondansetron 2 mg/ML SDV 2 mL 4 MG IVP (05:15)
[2024-03-17] MEDS: nitroglycerin 1 gm/inch oint Pkt 0.5 INCH TOPICAL (05:15)
--- NOTE | 2024-03-17 05:15 | W.ED.CHESTPA ---
Documented by User: Ashvin Dunlap, DO 03/18/24 23:45 HPI - Chest Pain General: Chief Complaint: Chest Pain Stated Complaint: cp Time Seen by Provider: 03/17/24 04:52 History of Present Illness: 53-year-old male with a history of coronary disease, ischemic and nonischemic cardiomyopathy, with an EF of 15%. He is status post stent placement to the circumflex on 03/12. He presents with chest discomfort and shortness of breath that started this morning. He complains of right sided flank pain since his last hospitalization a couple of days ago. He is short of breath. He is experiencing some swelling. Pain did not improve after administration of 2 nitroglycerin and aspirin by the EMS crew. He denies fever. He says he has had a dry cough. Related Data Home Medications Medication Instructions Recorded Confirmed pantoprazole 40 mg tablet,delayed 40 mg PO DAILY 07/17/21 03/17/24 release allopurinol 300 mg tablet 300 mg PO DAILY 03/04/24 03/17/24 colchicine 0.6 mg tablet 2 mg PO ONCE PRN gout 03/04/24 03/17/24 diazepam 2 mg tablet 2 mg PO DAILY PRN Anxiety 03/04/24 03/17/24 doxycycline hyclate 100 mg tablet 100 mg PO DAILY 03/17/24 03/17/24 Previous Rx's Medication Instructions Recorded aspirin 81 mg tablet,delayed 81 mg PO DAILY 30 days #30 tabs 03/12/24 release atorvastatin 40 mg tablet 40 mg PO BEDTIME 30 days #30 tabs 03/12/24 clopidogrel 75 mg tablet 75 mg PO DAILY 30 days #30 tabs 03/12/24 nitroglycerin 0.4 mg sublingual 0.4 mg sublingual Q5M PRN Chest 03/12/24 tablet Pain 30 days #30 tabs nystatin 100,000 unit/gram topical 1 applic topical BID 7 days #30 03/12/24 powder (Nystop) grams ciprofloxacin HCl 250 mg tablet 250 mg PO BID 4 days #8 tabs 03/14/24 (Cipro) metronidazole 500 mg tablet 500 mg PO BID 4 days #8 tabs 03/14/24 Allergies Allergy/AdvReac Type Severity Reaction Status Date / Time sulfamethoxazole Allergy SWOLLEN Verified 03/17/24 05:11 [From ] TONGUE trimethoprim [From ] Allergy SWOLLEN Verified 03/17/24 05:11 TONGUE [facility] ED [facility]: Medical History Anesthesia complication prolonged sedation after anesthesia 06/26/2022 requiring ICU monitoring but no other intervention, not responsive to narcan; took 5-6 hours to wake up after surgery. Only thing identified is he had not slept for several days prior to surgery. Chronic migraine Depression Prediabetes History of narcotic use with prior pain treatment contract, not using regular narcotic pain control as of 06/26/2022 History of psychiatric care Acute encephalopathy Hypertension GERD (gastroesophageal reflux disease) Hyperlipidemia History of electroencephalogram 11/04/20 This was a normal routine EEG, awake and drowsy and asleep, with no behavioral or electrographic epileptiform activity. This patient was excessively sleepy and was not sleep deprived. Consider a sleep disorder if clinically appropriate. Bipolar disorder Gout [place] tick fever History of Holter monitoring 09/2019 baseline sinus tachycardia with heart rate of 135 bpm, no pauses or bradycardia, diminished heart rate variability 12/2019 baseline sinus rhythm at 94 bpm, symptomatic sinus tachycardia with heart rate 72-126 bpm Psychiatric care Hyperparathyroidism s/p partial parathyroidectomy Bleeding per rectum Had anoscope done by Dr Garcia 08/30/2020 with no fistulae, sinuses, induration, abscess formation or fissures = normal findings Other stimulant dependence, in remission prior methamphetamine use Bilateral renal stones Has seen Dr Bhatti in past, non-obstructive, remote lithotripsy, otherwise monitored for symptoms Cervical disc disease With cervical radiculopathy, spondylosis, spondylosis with myelopathy B12 deficiency 09/2019 Generalized anxiety disorder Cannabis dependence, uncomplicated history, unknown if still using as of 06/26/2022 Carpal tunnel syndrome, left upper limb by nerve conduction study performed 05/2019, has not had surgery as of 06/26/2022 Surgical History Status post cervical discectomy 06/26/2022 Dr Mcghee anterior cervical discectomy C4/C5 with insertion of cage, instrumentation with anterior plate C4-C5, with C4-C7 posterior fusion and instrumentation, use of allograft History of esophagogastroduodenoscopy (EGD) 2016 History of colonoscopy 2016 S/P extracorporeal shock wave therapy History of parathyroidectomy partial, performed by Dr Henderson, never followed-up after surgery History of lumbar laminectomy 09/01/2020 Dr Mcghee L4/5 with bilateral partial facetectomy History of neck surgery 03/24/2020 Dr Mcghee Anterior discectomy with insertion of cage/instrumentation/use of allograft and anterior plate at C5/6 & C6/7 History of cholecystectomy History of knee surgery Left knee arthroscopy 08/[address] Campbell, had MRSA Family History Brother Hypertension Valvular heart disease Grandfather Hypertension History of open heart surgery Father History of open heart surgery Social History Smoking and tobacco/nicotine status: current every day tobacco/nicotine user cigarettes Years cigarettes smoked: 35 Alcohol intake: current Alcohol intake frequency: few times a week Alcohol type: beer Substance/Drug Use: former Household members: other Details: lives with mother who is a former [employer] [facility] [place] Marital status: Current occupational status: unemployed and disabled Physical Exam Const: GENERAL APPEARANCE: cooperative, anxious and ill appearing (Mildly) HENMT: COMMON NORMALS: normocephalic, atraumatic and Normal external nose present HEAD & SCALP: normocephalic and atraumatic FACE & SINUS: normal facial exam and face symmetric NOSE: Normal external nose present Eye: COMMON NORMALS: Equal, round and reactive pupils present and EOMs intact bilaterally PUPIL: Yes Equal, round and reactive pupils present Neck/C-Spine: GENERAL: Yes trachea midline Chest: CHEST: Yes Symmetrical chest wall rise Resp: COMMON NORMALS: clear to auscultation bilaterally EFFORT & INSPECTION: Yes tachypneic AUSCULTATION: clear to auscultation bilaterally Cardio: COMMON NORMALS: regular rhythm RATE: tachycardic RHYTHM: regular rhythm GI: COMMON NORMALS: Normal to inspection, nondistended, normoactive bowel sounds present Extremity: GENERAL: Yes edema Neuro: ANTWON COMA SCALE: document GCS findings [place]twon coma scale eye opening: Spontaneous Steward coma scale verbal response: Orientated Steward coma scale motor response: Obey commands [place]twon coma scale total score: 15 SENSORY EXAM: Yes extremities (intact) Psych: COMMON NORMALS: speech normal SPEECH: Yes normal speech Skin: COMMON NORMALS: no rashes or lesions noted GENERAL SKIN EXAM: no rashes or lesions noted Course Vital Signs: Vital signs: Vital Signs Temperature 98.1 F 03/18/24 04:45 Pulse Rate 100 03/18/24 16:15 Respiratory Rate 22 H 03/18/24 23:42 Blood Pressure 107/70 03/18/24 16:15 Pulse Oximetry 94 03/18/24 23:42 Oxygen Delivery Me thod Room Air 03/18/24 11:17 Oxygen Flow Rate 2 03/18/24 01:30 MDM - Chest Pain Medical Decision Making 53-year-old male patient with chest discomfort and shortness of breath. He also has some right-sided flank pain. Chest x-ray is clear of infiltrate or effusion. Heart size appears more normal compared to prior. EKG shows sinus tachycardia with less than 1/[address] elevation in V1 to 3. Hemoglobin is 12.5. White blood cell count is 11.7. Lab Data 03/18/24 06:19 03/18/24 06:19 Radiology Impressions Chest X-Ray 03/17/24 04:55 IMPRESSION: No acute changes from 03/14/2024. Chest/Abdomen/Pelvis CT 03/17/24 08:03 IMPRESSION: 1. No pulmonary embolism. 2. Marked LEFT heart enlargement. 3. Mild hazy attenuation throughout both lungs. Differential includes pneumonitis and mild interstitial edema. 4. No mediastinal or hilar adenopathy. 5. Hepatic and renal cysts. No interval change. 6. Moderate sigmoid diverticulosis without acute diverticulitis. 7. No ascites or pleural effusions. 8. Post catheterization changes at the RIGHT groin. 9. No ischemia or GI tract obstruction. Cervical Spine X-Ray 03/18/24 17:09 IMPRESSION: There are degenerative and postoperative changes in the cervical spine as described above. Changes are stable when compared to the prior study. Lumbar Spine X-Ray 03/18/24 17:09 IMPRESSION: There are degenerative changes as described above. No evidence for acute fracture. Laboratory Results WBC 11.72 10^3/uL (3.29-11.43) H 03/17/24 04:25 RBC 4.56 10^6/uL (3.85-5.65) 03/17/24 04:25 Hgb 12.50 g/dL (11.27-16.99) 03/17/24 04:25 Hct 40.4 % (37-53) 03/17/24 04:25 MCV 88.6 fl (82-101) 03/17/24 04:25 MCH 27.4 pg (27-33) 03/17/24 04:25 MCHC 30.9 g/dL (30-55) 03/17/24 04:25 RDW 15.1 % (12.1-15.1) 03/17/24 04:25 Plt Count 459 10^3/cmm (157-399) H 03/17/24 04:25 MPV 10.2 fL (7.4-10.4) 03/17/24 04:25 Neut % (Auto) 63.4 % 03/17/24 04:25 Lymph % (Auto) 26.1 % 03/17/24 04:25 Archer % (Auto) 6.6 % 03/17/24 04:25 Eos % (Auto) 2.9 % 03/17/24 04:25 Baso % (Auto) 0.3 % 03/17/24 04:25 Neut # (Auto) 7.44 10^3/uL (1.8-7.7) 03/17/24 04:25 Lymph # (Auto) 3.1 10^3/uL (0.8-4.8) 03/17/24 04:25 Archer # (Auto) 0.8 10^3/uL (0.2-0.9) 03/17/24 04:25 Eos # (Auto) 0.3 10^3/uL (0.0-0.8) 03/17/24 04:25 Baso # (Auto) 0.0 10^3/uL (0.0-0.1) 03/17/24 04:25 Nucleated RBC % (auto) 0 % 03/17/24 04:25 Nucleated RBCs # 0.0 /100WBC 03/17/24 04:25 PT 13.60 SECONDS (12.1-14.9) 03/17/24 04:25 INR 1.01 (0.8-1.2) 03/17/24 04:25 APTT 28.1 SECONDS (23.9-36.7) 03/17/24 04:25 Sodium 138 mmol/L (136-145) 03/17/24 05:27 Potassium 4.5 mmol/L (3.5-5.1) 03/17/24 05:27 Chloride 103 mmol/L (98-107) 03/17/24 05:27 Carbon Dioxide 24 mmol/L (22-29) 03/17/24 05:27 Anion Gap 15.5 (5-19) 03/17/24 05:27 BUN 12 mg/dL (6-20) 03/17/24 05:27 Creatinine 1.1 mg/dL (0.7-1.2) 03/17/24 05:27 GFR Calculation 69.8 mL/min (90-130) L 03/17/24 05:27 Glucose 108 mg/dL (65-115) 03/17/24 05:27 Calculated Osmolality 286 mOsm/kg (285-295) 03/17/24 05:27 Calcium 9.3 mg/dL (8.5-10.5) 03/17/24 05:27 Total Bilirubin 0.5 mg/dL (0.15-1.2) 03/17/24 05:27 AST 26 U/L (0-40) 03/17/24 05:27 ALT 25 U/L (0-41) 03/17/24 05:27 Alkaline Phosphatase 133 U/L (40-130) H 03/17/24 05:27 Creatine Kinase 60 U/L (39-308) 03/17/24 05:27 Troponin T Baseline 40 ng/L (0-15) H 03/17/24 04:25 Troponin T 120 Minute 35.13 ng/L (0-15) H 03/17/24 07:11 Delta Troponin T -4.87 ABS# (0-10) L 03/17/24 07:11 Troponin T Hi Sens 6Hr 32.14 ng/L (0-15) H 03/17/24 10:41 Troponin T Hi Sens 6Hr Delta -7.86 ng/L (0-12) L 03/17/24 10:41 NT-Pro-B Natriuret Pep 5029 pg/mL (0-125) H 03/17/24 05:27 Total Protein 6.6 g/dL (6.6-8.7) 03/17/24 05:27 Albumin 3.7 g/dL (3.5-5.2) 03/17/24 05:27 Globulin 2.9 g/dL (1.3-4.6) 03/17/24 05:27 Lipase 70 U/L (13-60) H 03/17/24 05:27 Urine Color Yellow (Yellow) 03/17/24 05:38 Urine Appearance Clear (CLEAR) 03/17/24 05:38 Urine pH 8.5 (5-7) A 03/17/24 05:38 Ur Specific [place] 1.014 (1.005-1.030) 03/17/24 05:38 Urine Protein Negative (Negative) 03/17/24 05:38 Urine Glucose (UA) Negative (Normal) 03/17/24 05:38 Urine Ketones Negative (Negative) 03/17/24 05:38 Urine Blood Negative (Negative) 03/17/24 05:38 Urine Nitrate Negative (Negative) 03/17/24 05:38 Urine Bilirubin Negative (Negative) 03/17/24 05:38 Urine Urobilinogen 1.0 mg/dL (Negative) 03/17/24 05:38 Ur Leukocyte Esterase Negative (Negative) 03/17/24 05:38 Amorphous Sediment Not Reportable 03/17/24 05:38 Urine Opiates Screen Positive ng/mL (Negative) H 03/17/24 05:38 Ur Barbiturates Screen Negative ng/mL (Negative) 03/17/24 05:38 Ur Phencyclidine Scrn Negative ng/mL (Negative) 03/17/24 05:38 Ur Amphetamines Screen Negative ng/mL (Negative) 03/17/24 05:38 U Benzodiazepines Scrn Positive ng/mL (Negative) H 03/17/24 05:38 Urine Cocaine Screen Negative ng/mL (Negative) 03/17/24 05:38 U Marijuana (THC) Screen Negative ng/mL (Negative) 03/17/24 05:38 Discharge Plan Discharge Patient Disposition: Admitted As Inpatient Admit Provider: Chelsey Conde Clinical Impression: Ischemic cardiomyopathy, Recent non-ST elevation myocardial infarction Condition: Stable Sign Out Sign Out Data: Patient Sign Out occurred on 03/17/24 at 06:22. Patient's care was discussed, and care was transferred from Ashvin Dunlap DO to Nathaniel Harding DO. 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 [employer] Documented by User: Nathaniel Harding DO 03/17/24 15:05 HPI - Chest Pain General: Chief Complaint: Chest Pain Stated Complaint: cp Time Seen by Provider: 03/17/24 04:52 History of Present Illness: Associated symptoms: Deny abdominal pain, dyspnea or fever(s) Related Data Home Medications Medication Instructions Recorded Confirmed pantoprazole 40 mg tablet,delayed 40 mg PO DAILY 07/17/21 03/17/24 release allopurinol 300 mg tablet 300 mg PO DAILY 03/04/24 03/17/24 colchicine 0.6 mg tablet 2 mg PO ONCE PRN gout 03/04/24 03/17/24 diazepam 2 mg tablet 2 mg PO DAILY PRN Anxiety 03/04/24 03/17/24 doxycycline hyclate 100 mg tablet 100 mg PO DAILY 03/17/24 03/17/24 Previous Rx's Medication Instructions Recorded aspirin 81 mg tablet,delayed 81 mg PO DAILY 30 days #30 tabs 03/12/24 release atorvastatin 40 mg tablet 40 mg PO BEDTIME 30 days #30 tabs 03/12/24 clopidogrel 75 mg tablet 75 mg PO DAILY 30 days #30 tabs 03/12/24 nitroglycerin 0.4 mg sublingual 0.4 mg sublingual Q5M PRN Chest 03/12/24 tablet Pain 30 days #30 tabs nystatin 100,000 unit/gram topical 1 applic topical BID 7 days #30 03/12/24 powder (Nystop) grams ciprofloxacin HCl 250 mg tablet 250 mg PO BID 4 days #8 tabs 03/14/24 (Cipro) metronidazole 500 mg tablet 500 mg PO BID 4 days #8 tabs 03/14/24 Allergies Allergy/AdvReac Type Severity Reaction Status Date / Time sulfamethoxazole Allergy SWOLLEN Verified 03/17/24 05:11 [From ] TONGUE trimethoprim [From ] Allergy SWOLLEN Verified 03/17/24 05:11 TONGUE Review of Systems Const: Denies: fever(s) or chills Card: Reports: chest pain Resp: Denies: dyspnea GI: Denies: abdominal pain : Denies: dysuria, urinary frequency or urinary urgency Musc: Denies: neck pain or back pain Skin/Breast: Denies: rash PFSH ED PFSH: Medical History Anesthesia complication prolonged sedation after anesthesia 06/26/2022 requiring ICU monitoring but no other intervention, not responsive to narcan; took 5-6 hours to wake up after surgery. Only thing identified is he had not slept for several days prior to surgery. Chronic migraine Depression Prediabetes History of narcotic use with prior pain treatment contract, not using regular narcotic pain control as of 06/26/2022 History of psychiatric care Acute encephalopathy Hypertension GERD (gastroesophageal reflux disease) Hyperlipidemia History of electroencephalogram 11/04/20 This was a normal routine EEG, awake and drowsy and asleep, with no behavioral or electrographic epileptiform activity. This patient was excessively sleepy and was not sleep deprived. Consider a sleep disorder if clinically appropriate. Bipolar disorder Gout [place] tick fever History of Holter monitoring 09/2019 baseline sinus tachycardia with heart rate of 135 bpm, no pauses or bradycardia, diminished heart rate variability 12/2019 baseline sinus rhythm at 94 bpm, symptomatic sinus tachycardia with heart rate 72-126 bpm Psychiatric care Hyperparathyroidism s/p partial parathyroidectomy Bleeding per rectum Had anoscope done by Dr Garcia 08/30/2020 with no fistulae, sinuses, induration, abscess formation or fissures = normal findings Other stimulant dependence, in remission prior methamphetamine use Bilateral renal stones Has seen Dr Bhatti in past, non-obstructive, remote lithotripsy, otherwise monitored for symptoms Cervical disc disease With cervical radiculopathy, spondylosis, spondylosis with myelopathy B12 deficiency 09/2019 Generalized anxiety disorder Cannabis dependence, uncomplicated history, unknown if still using as of 06/26/2022 Carpal tunnel syndrome, left upper limb by nerve conduction study performed 05/2019, has not had surgery as of 06/26/2022 Surgical History Status post cervical discectomy 06/26/2022 Dr Mcghee anterior cervical discectomy C4/C5 with insertion of cage, instrumentation with anterior plate C4-C5, with C4-C7 posterior fusion and instrumentation, use of allograft History of esophagogastroduodenoscopy (EGD) 2015 History of colonoscopy 2016 S/P extracorporeal shock wave therapy History of parathyroidectomy partial, performed by Dr Henderson, never followed-up after surgery History of lumbar laminectomy 09/01/2020 Dr Mcghee L4/5 with bilateral partial facetectomy History of neck surgery 03/24/2020 Dr Mcghee Anterior discectomy with insertion of cage/instrumentation/use of allograft and anterior plate at C5/6 & C6/7 History of cholecystectomy History of knee surgery Left knee arthroscopy 08/[address] Campbell, had MRSA Family History Brother Hypertension Valvular heart disease Grandfather Hypertension History of open heart surgery Father History of open heart surgery Social History Smoking and tobacco/nicotine status: current every day tobacco/nicotine user cigarettes Years cigarettes smoked: 35 Alcohol intake: current Alcohol intake frequency: few times a week Alcohol type: beer Substance/Drug Use: former Household members: other Details: lives with mother who is a former [employer] [facility] [place] Marital status: Current occupational status: unemployed and disabled Physical Exam Const: ORIENTATION/CONSCIOUSNESS: Yes awake, Yes oriented to person, Yes oriented to place and Yes oriented to time GI: COMMON NORMALS: Soft to palpation and No hepatosplenomegaly present AUSCULTATION: Yes normoactive bowel sounds PALPATION: Yes Soft to palpation, No Tenderness to palpation present (GI), No Guarding due to palpation present (GI) and Yes No hepatosplenomegaly present Extremity: COMMON NORMALS: normal to inspection, capillary refill normal, no clubbing, cyanosis or edema, no calf tenderness and no pedal edema Neuro: ANTWON COMA SCALE: document GCS findings Steward coma scale total score: 15 SENSORIUM/ORIENTATION: Yes oriented to person, Yes oriented to place and Yes oriented to time Course Vital Signs: Vital signs: Vital Signs Temperature 98.1 F 03/18/24 04:45 Pulse Rate 100 03/18/24 16:15 Respiratory Rate 22 H 03/18/24 23:42 Blood Pressure 107/70 03/18/24 16:15 Pulse Oximetry 94 03/18/24 23:42 Oxygen Delivery Me thod Room Air 03/18/24 11:17 Oxygen Flow Rate 2 12/10/24 01:30 MDM - Chest Pain Medical Decision Making 53-year-old male patient with chest discomfort and shortness of breath. He also has some right-sided flank pain. Chest x-ray is clear of infiltrate or effusion. Heart size appears more normal compared to prior. EKG shows sinus tachycardia with less than 1/[address] elevation in V1 to 3. Hemoglobin is 12.5. White blood cell count is 11.7. Patient continues to have chest pain. Patient has known ischemic cardiomyopathy he has had recent angiograms. CTA of his chest was done to rule out PE which was negative. CT of the abdomen was also done which did not show any acute abnormalities. Will admit for cardiology consult for further management of persistent angina. Medical Records I reviewed the patient's medical records. Lab Data I reviewed the patient's lab results. 03/18/24 06:19 03/18/24 06:19 Radiology Impressions Chest X-Ray 03/17/24 04:55 IMPRESSION: No acute changes from 03/14/2024. Chest/Abdomen/Pelvis CT 03/17/24 08:03 IMPRESSION: 1. No pulmonary embolism. 2. Marked LEFT heart enlargement. 3. Mild hazy attenuation throughout both lungs. Differential includes pneumonitis and mild interstitial edema. 4. No mediastinal or hilar adenopathy. 5. Hepatic and renal cysts. No interval change. 6. Moderate sigmoid diverticulosis without acute diverticulitis. 7. No ascites or pleural effusions. 8. Post catheterization changes at the RIGHT groin. 9. No ischemia or GI tract obstruction. Cervical Spine X-Ray 03/18/24 17:09 IMPRESSION: There are degenerative and postoperative changes in the cervical spine as described above. Changes are stable when compared to the prior study. Lumbar Spine X-Ray 03/18/24 17:09 IMPRESSION: There are degenerative changes as described above. No evidence for acute fracture. Laboratory Results WBC 11.72 10^3/uL (3.29-11.43) H 03/17/24 04:25 RBC 4.56 10^6/uL (3.85-5.65) 03/17/24 04:25 Hgb 12.50 g/dL (11.27-16.99) 03/17/24 04:25 Hct 40.4 % (37-53) 03/17/24 04:25 MCV 88.6 fl (82-101) 03/17/24 04:25 MCH 27.4 pg (27-33) 03/17/24 04:25 MCHC 30.9 g/dL (30-55) 03/17/24 04:25 RDW 15.1 % (12.1-15.1) 03/17/24 04:25 Plt Count 459 10^3/cmm (157-399) H 03/17/24 04:25 MPV 10.2 fL (7.4-10.4) 03/17/24 04:25 Neut % (Auto) 63.4 % 03/17/24 04:25 Lymph % (Auto) 26.1 % 03/17/24 04:25 Archer % (Auto) 6.6 % 03/17/24 04:25 Eos % (Auto) 2.9 % 03/17/24 04:25 Baso % (Auto) 0.3 % 03/17/24 04:25 Neut # (Auto) 7.44 10^3/uL (1.8-7.7) 03/17/24 04:25 Lymph # (Auto) 3.1 10^3/uL (0.8-4.8) 03/17/24 04:25 Archer # (Auto) 0.8 10^3/uL (0.2-0.9) 03/17/24 04:25 Eos # (Auto) 0.3 10^3/uL (0.0-0.8) 03/17/24 04:25 Baso # (Auto) 0.0 10^3/uL (0.0-0.1) 03/17/24 04:25 Nucleated RBC % (auto) 0 % 03/17/24 04:25 Nucleated RBCs # 0.0 /100WBC 03/17/24 04:25 PT 13.60 SECONDS (12.1-14.9) 03/17/24 04:25 INR 1.01 (0.8-1.2) 03/17/24 04:25 APTT 28.1 SECONDS (23.9-36.7) 03/17/24 04:25 Sodium 138 mmol/L (136-145) 03/17/24 05:27 Potassium 4.5 mmol/L (3.5-5.1) 03/17/24 05:27 Chloride 103 mmol/L (98-107) 03/17/24 05:27 Carbon Dioxide 24 mmol/L (22-29) 03/17/24 05:27 Anion Gap 15.5 (5-19) 03/17/24 05:27 BUN 12 mg/dL (6-20) 03/17/24 05:27 Creatinine 1.1 mg/dL (0.7-1.2) 03/17/24 05:27 GFR Calculation 69.8 mL/min (90-130) L 03/17/24 05:27 Glucose 108 mg/dL (65-115) 03/17/24 05:27 Calculated Osmolality 286 mOsm/kg (285-295) 03/17/24 05:27 Calcium 9.3 mg/dL (8.5-10.5) 03/17/24 05:27 Total Bilirubin 0.5 mg/dL (0.15-1.2) 03/17/24 05:27 AST 26 U/L (0-40) 03/17/24 05:27 ALT 25 U/L (0-41) 03/17/24 05:27 Alkaline Phosphatase 133 U/L (40-130) H 03/17/24 05:27 Creatine Kinase 60 U/L (39-308) 03/17/24 05:27 Troponin T Baseline 40 ng/L (0-15) H 03/17/24 04:25 Troponin T 120 Minute 35.13 ng/L (0-15) H 03/17/24 07:11 Delta Troponin T -4.87 ABS# (0-10) L 03/17/24 07:11 Troponin T Hi Sens 6Hr 32.14 ng/L (0-15) H 03/17/24 10:41 Troponin T Hi Sens 6Hr Delta -7.86 ng/L (0-12) L 03/17/24 10:41 NT-Pro-B Natriuret Pep 5029 pg/mL (0-125) H 03/17/24 05:27 Total Protein 6.6 g/dL (6.6-8.7) 03/17/24 05:27 Albumin 3.7 g/dL (3.5-5.2) 03/17/24 05:27 Globulin 2.9 g/dL (1.3-4.6) 03/17/24 05:27 Lipase 70 U/L (13-60) H 03/17/24 05:27 Urine Color Yellow (Yellow) 03/17/24 05:38 Urine Appearance Clear (CLEAR) 03/17/24 05:38 Urine pH 8.5 (5-7) A 03/17/24 05:38 Ur Specific [place] 1.014 (1.005-1.030) 03/17/24 05:38 Urine Protein Negative (Negative) 03/17/24 05:38 Urine Glucose (UA) Negative (Normal) 03/17/24 05:38 Urine Ketones Negative (Negative) 03/17/24 05:38 Urine Blood Negative (Negative) 03/17/24 05:38 Urine Nitrate Negative (Negative) 03/17/24 05:38 Urine Bilirubin Negative (Negative) 03/17/24 05:38 Urine Urobilinogen 1.0 mg/dL (Negative) 03/17/24 05:38 Ur Leukocyte Esterase Negative (Negative) 03/17/24 05:38 Amorphous Sediment Not Reportable 03/17/24 05:38 Urine Opiates Screen Positive ng/mL (Negative) H 03/17/24 05:38 Ur Barbiturates Screen Negative ng/mL (Negative) 03/17/24 05:38 Ur Phencyclidine Scrn Negative ng/mL (Negative) 03/17/24 05:38 Ur Amphetamines Screen Negative ng/mL (Negative) 03/17/24 05:38 U Benzodiazepines Scrn Positive ng/mL (Negative) H 03/17/24 05:38 Urine Cocaine Screen Negative ng/mL (Negative) 03/17/24 05:38 U Marijuana (THC) Screen Negative ng/mL (Negative) 03/17/24 05:38 All radiology interpretation(s) finalized by discharge Discharge Plan Discharge Patient Disposition: Admitted As Inpatient Admit Provider: Chelsey Conde Clinical Impression: Ischemic cardiomyopathy, Recent non-ST elevation myocardial infarction Condition: Stable Sign Out Sign Out Data: Patient Sign Out occurred on 03/17/24 at 06:22. Patient's care was discussed, and care was transferred from Ashvin Dunlap DO to Nathaniel Harding DO. 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 [facility]
[2024-03-17 05:25] LABS: Troponin(5th) Baseline 40 ng/L (0-15)
[2024-03-17 05:35] LABS: INR 1.01 (0.8-1.2)
[2024-03-17 05:36] LABS: Partial Thromboplastin Time 28.1 SECONDS (23.9-36.7)
[2024-03-17 05:46] LABS: Add Urine Microscopic? NO
[2024-03-17 05:50] LABS: Bilirubin Urine Negative (Negative); Blood Urine Negative (Negative); Glucose Urine UA Negative (Normal); Ketones Urine Negative (Negative); Leukocyte Esterase Urine Negative (Negative); Nitrate Urine Negative (Negative); Protein Urine Negative (Negative); Specific Gravity, Urine 1.014 (1.005-1.030); Urine Appearance Clear (CLEAR); Urine Color Yellow (Yellow); pH Urine 8.5 (5-7)
[2024-03-17 05:51] LABS: Charge for UA Resulting for Rev
[2024-03-17 05:58] LABS: Amphetamines Screen Urine Negative (Negative); Barbiturates Screen Urine Negative (Negative); Benzodiazepines Screen Urine Positive (Negative); Cocaine Screen Urine Negative (Negative); Opiate Screen Urine Positive (Negative); PCP Screen Urine Negative (Negative); THC Screen Urine Negative (Negative)
[2024-03-17 05:58] LABS: Alanine Aminotransferase 25 U/L (0-41); Albumin Level 3.7 g/dL (3.5-5.2); Alkaline Phosphatase 133 U/L (40-130); Anion Gap 15.5 (5-19); Aspartate Amino Transferase 26 U/L (0-40); Blood Urea Nitrogen 12 mg/dL (6-20); Calcium 9.3 mg/dL (8.5-10.5); Carbon Dioxide 24 mmol/L (22-29); Chloride 103 mmol/L (98-107); Creatine Phosphokinase 60 U/L (39-308); Creatinine Clr Calc Pharmacy 77.0295; Globulin 2.9 g/dL (1.3-4.6); Glomerular Filtration Rate 69.8 mL/min (90-130); Glucose 108 mg/dL (65-115); NT Pro B Type Natriuretic Pept 5029 pg/mL (0-125); Osmolality Calculated 286 mOsm/kg (285-295); Potassium 4.5 mmol/L (3.5-5.1); Sodium 138 mmol/L (136-145); Total Bilirubin 0.5 mg/dL (0.15-1.2); Total Protein 6.6 g/dL (6.6-8.7)
--- NOTE | 2024-03-17 07:13 | ECG_ITS ---
[employer] Test Date: 2024-03-17 Pat Name: Vivek Corral Department: Room: Gender: Male Chief Clerk Shelter: : 1970 Requested By: Ashvin Gutierrez Order Number: [id number] Reading MD: HAYDEE ROGEL Measurements Intervals [place] Rate: 105 P: 54 LA: 148 QRS: -14 QRSD: 100 T: 105 QT: 367 QTc: 486 Interpretive Statements SINUS TACHYCARDIA ANTEROSEPTAL MYOCARDIAL INFARCTION , PROBABLY RECENT [40+ ms Q WAVE IN V1-V4] Compared to ECG 03/17/2024 04:56:19 No significant changes Electronically Signed On 03-17-2024 16:14:57 CONTRACTING EXECUTIVE by HAYDEE ROGEL [email or web address]
[2024-03-17 07:38] LABS: Troponin 5 2HR 35.13 ng/L (0-15); Troponin 5 2HR Delta -4.87 ABS# (0-10)
--- NOTE | 2024-03-17 07:56 | P.CONIM_ITS ---
Providers/Reason For Consult 2 Consulting Physician/Specialty*: CRISTIN Gee MD/cardiology Reason for Consult*: Patient with unstable anginal symptoms Requesting Physician: Dr. Harding/ Primary Care Provider: Soto Escamilla MD History of Present Illness History of Present Illness Vivek Corral is a 53 year old male presenting with complaints of chest pain and shortness of breath. This patient is known to atherosclerotic heart diseas, ischemic cardiomyopathy and recent hospital admission for decompensated heart failure and chest pain. He underwent cardiac irradiation followed by PCI. According the patient, he been doing okay since the hospital admission apparently last night when he woke up couple of times with the shortness of breath and chest pain. The first time he woke up around midnight with the shortness of breath and chest pain. Pain lasted for few minutes and then went away by itself. He went back to sleep. Couple hours later, again woke up with chest pain and shortness of breath. The chest pain was in the lower substernal region. There was no significant radiation. Intensity of the pain was 8/10. The pain has been episodic, each episodes last for 2 to 3 minutes and then subside spontaneously. Because of this recurrent next episodes of chest pain, he decided to call the ambulance. At the time of my examination, he is pain-free. Apparently he has been having episodes of chest pain since coming to the emergency room. The EKG did not show any acute changes. He has features of old anteroseptal DC and diffuse nonspecific T wave changes. He also is complaining of some right groin pain and right lower abdominal pain. This also comes and goes. According to him, he had tomorrow similar symptoms during the last hospital admission as well. He has no fever, chills or cough. He has a small resolving hematoma in the right groin. Recently admitted to hospital on the 03/04/2024. He underwent cardiac catheterization which revealed a subtotal occlusion of the proximal LAD and a high-grade lesion in the distal circumflex. He underwent PCI of these lesions by Dr. Alcocer. He apparently has been doing okay since intervention. His blood pressure was running low. He was placed on a LifeVest. This patient is known to have chronic neck pain, history of multiple drug abuse. Depressive illness, ADD and? Reactive airway disease. His maternal grandfather had a coronary disease and open heart surgery. Details are not known. His father might have had some heart problems but patient does not know the details. No other line family history. Patient used cocaine many years ago. He been using methamphetamine for 10 years or more which he quit 6 months ago. Currently he smokes cigarettes. No alcohol abuse or any other substance abuse. Review of Systems 2 Narrative: CONSTITUTIONAL: Patient seems to think that he may have had a low-grade fever at home EYES: No blurring of vision or other visual disturbances lately. ENT: No hoarseness of voice, auditory disturbances or sore throat. CARDIOVASCULAR: As mentioned above. RESPIRATORY: No significant cough. GASTROINTESTINAL: Right lower quadrant pain off and on GENITOURINARY: No dysuria or hematuria. INTEGUMENTARY: He has been treated for tinea cruris NEURO: No transient ischemic attacks or amaurosis. PSYCHIATRIC: No history of psychosis or major depression. HEMATOLOGIC: No bleeding disorders or significant anemia. ENDOCRINE: No history of polyuria or polydipsia. MUSCULOSKELETAL: No recent joint pain or swelling. ALLERGY/IMMUNOLOGY: As mentioned above. Medications/Allergies Home Medications Medication Instructions Recorded Confirmed Last Taken Type pantoprazole 40 mg tablet,delayed 40 mg PO DAILY 07/17/21 03/17/24 03/16/24 History release allopurinol 300 mg tablet 300 mg PO DAILY 03/04/24 03/17/24 03/16/24 History colchicine 0.6 mg tablet 2 mg PO ONCE PRN gout 03/04/24 03/17/24 Unknown History diazepam 2 mg tablet 2 mg PO DAILY PRN Anxiety 03/04/24 03/17/24 Unknown History aspirin 81 mg tablet,delayed 81 mg PO DAILY 30 days #30 tabs 03/12/24 03/17/24 03/16/24 Rx release atorvastatin 40 mg tablet 40 mg PO BEDTIME 30 days #30 tabs 03/12/24 03/17/24 03/16/24 Rx clopidogrel 75 mg tablet 75 mg PO DAILY 30 days #30 tabs 03/12/24 03/17/24 03/16/24 Rx nitroglycerin 0.4 mg sublingual 0.4 mg sublingual Q5M PRN Chest 03/12/24 03/17/24 Unknown Rx tablet Pain 30 days #30 tabs nystatin 100,000 unit/gram topical 1 applic topical BID 7 days #30 12/07/3103/17/24 03/16/24 Rx powder (Nystop) grams ciprofloxacin HCl 250 mg tablet 250 mg PO BID 4 days #8 tabs 03/14/24 03/17/24 03/16/24 Rx (Cipro) metronidazole 500 mg tablet 500 mg PO BID 4 days #8 tabs 03/14/24 03/17/24 03/16/24 Rx doxycycline hyclate 100 mg tablet 100 mg PO DAILY 03/17/24 03/17/24 03/16/24 History Allergies Allergy/AdvReac Type Severity Reaction Status Date / Time sulfamethoxazole Allergy SWOLLEN Verified 03/17/24 05:11 [From ] TONGUE trimethoprim [From ] Allergy SWOLLEN Verified 03/17/24 05:11 TONGUE PFSH Acute 2 PFSH: Medical History Anesthesia complication prolonged sedation after anesthesia 06/26/2022 requiring ICU monitoring but no other intervention, not responsive to narcan; took 5-6 hours to wake up after surgery. Only thing identified is he had not slept for several days prior to surgery. Chronic migraine Depression Prediabetes History of narcotic use with prior pain treatment contract, not using regular narcotic pain control as of 06/26/2022 History of psychiatric care Acute encephalopathy Hypertension GERD (gastroesophageal reflux disease) Hyperlipidemia History of electroencephalogram 11/04/20 This was a normal routine EEG, awake and drowsy and asleep, with no behavioral or electrographic epileptiform activity. This patient was excessively sleepy and was not sleep deprived. Consider a sleep disorder if clinically appropriate. Bipolar disorder Gout [place] tick fever History of Holter monitoring 09/2019 baseline sinus tachycardia with heart rate of 135 bpm, no pauses or bradycardia, diminished heart rate variability 12/2019 baseline sinus rhythm at 94 bpm, symptomatic sinus tachycardia with heart rate 72-126 bpm Psychiatric care Hyperparathyroidism s/p partial parathyroidectomy Bleeding per rectum Had anoscope done by Dr Garcia 08/30/2020 with no fistulae, sinuses, induration, abscess formation or fissures = normal findings Other stimulant dependence, in remission prior methamphetamine use Bilateral renal stones Has seen Dr Bhatti in past, non-obstructive, remote lithotripsy, otherwise monitored for symptoms Cervical disc disease With cervical radiculopathy, spondylosis, spondylosis with myelopathy B12 deficiency 09/2019 Generalized anxiety disorder Cannabis dependence, uncomplicated history, unknown if still using as of 06/26/2022 Carpal tunnel syndrome, left upper limb by nerve conduction study performed 05/2019, has not had surgery as of 06/26/2022 Surgical History Status post cervical discectomy 06/26/2022 Dr Mcghee anterior cervical discectomy C4/C5 with insertion of cage, instrumentation with anterior plate C4-C5, with C4-C7 posterior fusion and instrumentation, use of allograft History of esophagogastroduodenoscopy (EGD) 2015 History of colonoscopy 2016 S/P extracorporeal shock wave therapy History of parathyroidectomy partial, performed by Dr Henderson, never followed-up after surgery History of lumbar laminectomy 09/01/2020 Dr Mcghee L4/5 with bilateral partial facetectomy History of neck surgery 03/24/2020 Dr Mcghee Anterior discectomy with insertion of cage/instrumentation/use of allograft and anterior plate at C5/6 & C6/7 History of cholecystectomy History of knee surgery Left knee arthroscopy 08/[address] Campbell, had MRSA Family History Brother Hypertension Valvular heart disease Grandfather Hypertension History of open heart surgery Father History of open heart surgery Social History Smoking and tobacco/nicotine status: current every day tobacco/nicotine user cigarettes Years cigarettes smoked: 35 Alcohol intake: current Alcohol intake frequency: few times a week Alcohol type: beer Substance/Drug Use: former Household members: other Details: lives with mother who is a former [facility] [place] Marital status: Current occupational status: unemployed and disabled Vitals/I&O/Wt Last Vital Signs Temp 97.8 F 03/17/24 05:01 Pulse 103 H 03/17/24 06:58 Resp 21 H 03/17/24 06:02 BP 104/73 03/17/24 06:58 Pulse Ox 98 03/17/24 06:58 O2 Del Method Room Air 03/17/24 06:58 Weight last 48 hrs Weight 180 lb Physical Exam 2 Narrative: GENERAL: The patient is alert and oriented times three. Not in any acute distress. HEENT: No significant pallor, icterus or lymphadenopathy.Oral cavity: There are no mucous membrane lesions. NECK: Trachea appears to be central. No masses noted. No JVD or thyromegaly appreciated. RESPIRATORY: Chest is symmetrical. No intercostals muscle retraction or any accessory muscle activation. There is no chest wall tenderness. Breath sounds are heard bilaterally. No rales or rhonchi heard. No evidence of any consolidation. BREASTS: Deferred. HEART: The heart sounds are normal. No S3 or S4. No significant murmurs. No pericardial rub ABDOMEN: No vessel pulsations or distention. Moderate tenderness in the right lower quadrant. No organomegaly appreciated. Bowel sounds are normally heard. Moderate tenderness in the right groin : Deferred. RECTAL: Deferred. LYMPHATIC: No lymphadenopathy noted in the neck. EXTREMITIES: No edema or cyanosis. No clubbing. MUSCULOSKELETAL: No acute joint deformities or swelling SKIN: There are no significant rashes or ecchymosis NEUROPSYCHIATRIC: The patient is alert and oriented x3. Appears to be in a good mood. No tremors or rigidity noted. Data 03/18/24 06:19 03/18/24 06:19 Other Labs: Laboratory Last Values WBC 11.72 10^3/uL (3.29-11.43) H 03/17/24 04:25 RBC 4.56 10^6/uL (3.85-5.65) 03/17/24 04:25 Hgb 12.50 g/dL (11.27-16.99) 03/17/24 04:25 Hct 40.4 % (37-53) 03/17/24 04:25 MCV 88.6 fl (82-101) 03/17/24 04:25 MCH 27.4 pg (27-33) 03/17/24 04:25 MCHC 30.9 g/dL (30-55) 03/17/24 04:25 RDW 15.1 % (12.1-15.1) 03/17/24 04:25 Plt Count 459 10^3/cmm (157-399) H 03/17/24 04:25 MPV 10.2 fL (7.4-10.4) 03/17/24 04:25 Neut % (Auto) 63.4 % 03/17/24 04:25 Lymph % (Auto) 26.1 % 03/17/24 04:25 [place] % (Auto) 6.6 % 03/17/24 04:25 Eos % (Auto) 2.9 % 03/17/24 04:25 Baso % (Auto) 0.3 % 03/17/24 04:25 Neut # (Auto) 7.44 10^3/uL (1.8-7.7) 03/17/24 04:25 Lymph # (Auto) 3.1 10^3/uL (0.8-4.8) 03/17/24 04:25 [place] # (Auto) 0.8 10^3/uL (0.2-0.9) 03/17/24 04:25 Eos # (Auto) 0.3 10^3/uL (0.0-0.8) 03/17/24 04:25 Baso # (Auto) 0.0 10^3/uL (0.0-0.1) 03/17/24 04:25 Nucleated RBC % (auto) 0 % 03/17/24 04:25 Nucleated RBCs # 0.0 /100WBC 03/17/24 04:25 PT 13.60 SECONDS (12.1-14.9) 03/17/24 04:25 INR 1.01 (0.8-1.2) 03/17/24 04:25 APTT 28.1 SECONDS (23.9-36.7) 03/17/24 04:25 Sodium 138 mmol/L (136-145) 03/17/24 05:27 Potassium 4.5 mmol/L (3.5-5.1) 03/17/24 05:27 Chloride 103 mmol/L (98-107) 03/17/24 05:27 Carbon Dioxide 24 mmol/L (22-29) 03/17/24 05:27 Anion Gap 15.5 (5-19) 03/17/24 05:27 BUN 12 mg/dL (6-20) 03/17/24 05:27 Creatinine 1.1 mg/dL (0.7-1.2) 03/17/24 05:27 GFR Calculation 69.8 mL/min (90-130) L 03/17/24 05:27 Glucose 108 mg/dL (65-115) 03/17/24 05:27 Calculated Osmolality 286 mOsm/kg (285-295) 03/17/24 05:27 Calcium 9.3 mg/dL (8.5-10.5) 03/17/24 05:27 Total Bilirubin 0.5 mg/dL (0.15-1.2) 03/17/24 05:27 AST 26 U/L (0-40) 03/17/24 05:27 ALT 25 U/L (0-41) 03/17/24 05:27 Alkaline Phosphatase 133 U/L (40-130) H 03/17/24 05:27 Creatine Kinase 60 U/L (39-308) 03/17/24 05:27 Troponin T Baseline 40 ng/L (0-15) H 03/17/24 04:25 Troponin T 120 Minute 35.13 ng/L (0-15) H 03/17/24 07:11 Delta Troponin T -4.87 ABS# (0-10) L 03/17/24 07:11 NT-Pro-B Natriuret Pep 5029 pg/mL (0-125) H 03/17/24 05:27 Total Protein 6.6 g/dL (6.6-8.7) 03/17/24 05:27 Albumin 3.7 g/dL (3.5-5.2) 03/17/24 05:27 Globulin 2.9 g/dL (1.3-4.6) 03/17/24 05:27 Urine Color Yellow (Yellow) 03/17/24 05:38 Urine Appearance Clear (CLEAR) 03/17/24 05:38 Urine pH 8.5 (5-7) A 03/17/24 05:38 Ur Specific [place] 1.014 (1.005-1.030) 03/17/24 05:38 Urine Protein Negative (Negative) 03/17/24 05:38 Urine Glucose (UA) Negative (Normal) 03/17/24 05:38 Urine Ketones Negative (Negative) 03/17/24 05:38 Urine Blood Negative (Negative) 03/17/24 05:38 Urine Nitrate Negative (Negative) 03/17/24 05:38 Urine Bilirubin Negative (Negative) 03/17/24 05:38 Urine Urobilinogen 1.0 mg/dL (Negative) 03/17/24 05:38 Ur Leukocyte Esterase Negative (Negative) 03/17/24 05:38 Amorphous Sediment Not Reportable 03/17/24 05:38 Urine Opiates Screen Positive ng/mL (Negative) H 03/17/24 05:38 Ur Barbiturates Screen Negative ng/mL (Negative) 03/17/24 05:38 Ur Phencyclidine Scrn Negative ng/mL (Negative) 03/17/24 05:38 Ur Amphetamines Screen Negative ng/mL (Negative) 03/17/24 05:38 U Benzodiazepines Scrn Positive ng/mL (Negative) H 03/17/24 05:38 Urine Cocaine Screen Negative ng/mL (Negative) 03/17/24 05:38 U Marijuana (THC) Screen Negative ng/mL (Negative) 03/17/24 05:38 Other data: EKG The EKG showed sinus tachycardia with a rate of 106 bpm. Features of recent anterior wall DC. Diffuse nonspecific T wave changes. Possible right atrial enlargement. Echocardiogram on 03/04/2024 Severe diffuse hypokinesia of the left ventricle with an ejection fraction of around 15%. Mildly ncreased left atrial size. Thickened mitral valve. Mild mitral annular calcification. Mild to moderate mitral valve regurgitation. Thickened aortic valve. Ilcw-jf-cussxsil tricuspid valve regurgitation. Estimated pulmonary artery peak systolic pressure 43 mmHg. Mild pulmonary valve regurgitation. There is no pericardial effusion. Compared to the study from 09/12/2019, there is a marked decline in the LV ejection fraction from 55% to 15% A&P Assessment and plan (1) Chest pain: The etiology of the chest pain is not clear. In view of the associated shortness of breath and the abnormal EKG, possibility of a PE cannot be excluded. His symptoms are very atypical. So far there is no evidence of any myocardial injury. Possibility of some form of cardiac arrhythmia also is a consideration. Qualifiers: Chest pain type: unspecified Qualified Code(s): R07.9 - Chest pain, unspecified (2) Recent non-ST elevation myocardial infarction: Patient status post cardiac catheterization followed by PCI of the LAD and circumflex artery. No evidence of any acute medical injury or any new EKG changes (3) Ischemic cardiomyopathy: The most recent echocardiogram on 03/04/2024 revealed an LV ejection fraction of 15%. That is a significant drop from the previous ejection fraction of 55%. Patient apparently is somewhat hypotensive. He may not be able to tolerate any afterload reducing agents or other GDMT medications. May continue on the Lasix and spironolactone and Jardiance (4) Bipolar disorder, current episode depressed, moderate: Continue on the current management. (5) Other stimulant dependence, in remission: According the patient he did not take any illicit drugs since the hospital discharge Plan He is getting a CTA of the chest to rule out any PE. Will continue to monitor the rhythm and his symptoms. I also may do a an ultrasound of the right groin to rule out any pseudoaneurysm. May be continued on the current medications for the time being. Based on the clinical progress, further recommendations will be made. Consult Attestations 2 Medical Necessity Statement: Patient requires continued hospital stay for close monitoring and further management Coding Level of Care Code 56601 Diagnoses Chest pain R07.9 Chest pain type: unspecified Recent non-ST elevation myocardial infarction Ischemic cardiomyopathy I25.5 Bipolar disorder, current episode depressed, moderate F31.32 Other stimulant dependence, in remission F15.21
--- NOTE | 2024-03-17 08:03 | CT_ITS ---
WS: [id number] CTA CHEST WITH CT ABDOMEN AND PELVIS. HISTORY: Abdominal pain, dyspnea, chest pain TECHNIQUE: CT angiogram is performed through the chest. Additional imaging is performed through the a bdomen and pelvis with IV contrast. Sagittal and coronal reformats have been submitted. MIP imaging also reviewed. All CT scans at [facility] use at least one of these dose optimization techniqu es: automated exposure control; mA and/or kV adjustment per patient size (includes targeted exams whe re dose is matched to clinical indication); or iterative reconstruction. Contrast: Omnipaque 350; 95 cc IV. DLP: 1097.39 mGy.cm COMPARISON: 03/14/2024, 03/05/2024 Chest CTA: Adequate opacification of the central pulmonary arteries. Normal size pulmonary artery. No filling defects or pulmonary emboli identified. Mild atherosclerosis aorta. Heart is enlarged. LEFT heart chambers are significantly enlarged. No pericardial effusion. No pleural effusions. Mild hazy a ttenuation throughout both lungs but no dense consolidation. No mass. No mediastinal or hilar adenopa thy. There are small mediastinal and hilar lymph nodes with the largest measuring 10 mm at the RIGHT hilum. Abdomen CT: Normal size liver with stable hepatic cysts. Some of the cysts are difficult to character ize due to their position and artifact from motion but these have been present since 2019. No bile du ct dilatation. Prior cholecystectomy. Normal size common bile duct. Normal spleen, adrenal glands and pancreas. Very minimal atherosclerosis aorta. Mesenteric arteries are well opacified. Very slight na rrowing of the proximal celiac axis. Very mild bilateral perinephric stranding. Nonobstructing calcif ications and numerous hepatic cysts. Some of these low-attenuation masses are not completely cystic b ut if been present for several years. No new solid mass. Nondistended stomach. No small bowel obstruction. Mild diffuse constipation. Normal appendix. Moderat e distal colonic diverticular burden. No acute diverticulitis. Pelvic CT: Well-distended urinary bladder. No free fluid or adenopathy. There is increased soft tissu e surrounding the RIGHT femoral artery. This was also noted on 03/14/2024 and is at the site of the pr ior catheterization most likely. Bilateral femoral head osteonecrosis. CT/CT angio chest w abd pel w con IMPRESSION: 1. No pulmonary embolism. 2. Marked LEFT heart enlargement. 3. Mild hazy attenuation throughout both lungs. Differential includes pneumoni tis and mild interstitial edema. 4. No mediastinal or hilar adenopathy. 5. Hepatic and renal cysts. No interval change. 6. Moderate sigmoid diverticulosis without acute diverticulitis. 7. No ascites or pleural effusions. 8. Post catheterization changes at the RIGHT groin. 9. No ischemia or GI tract obstruction.
--- NOTE | 2024-03-17 08:07 | PC.PHAR ---
Patient states he took his medication 03/16/24 . He says he doesn't sleep well so he doesn't take his medication regularly like he should .
[2024-03-17] MEDS: iohexol 350 mg/mL 500 mL Btl (per mL) IV (08:39)
--- NOTE | 2024-03-17 08:59 | PC.NURSE ---
WHILE ASSESSING PT CHEST PAIN LEVEL, THIS NURSE NOTICED PT HAS LIFE VEST IN CHAIR NEXT TO HIM. THIS NURSE ASKED WHY IT WAS OFF, PT STATED EMS TOOK IT OFF AND NO ONE PUT IT ON. THIS NURSE NOTIFIED DR. REINOSO OF REMOVAL OF LIFE VEST. PER DR. REINOSO TO PUT LIFE VEST BACK ON.
--- NOTE | 2024-03-17 09:02 | PC.NURSE ---
PT COMPLAINING OF PAIN IN INCISION FROM PRIOR HEART CATH THAT IS RADIATING INTO ABDOMEN. DR. REINOSO AWARE, ABD CT ORDERED.
--- NOTE | 2024-03-17 10:56 | ECG_ITS ---
[employer] Test Date: 2024-03-17 Pat Name: Vivek Corral Department: Room: Gender: Male Fleet Assistant: : 1970 Requested By: Ashvin Gutierrez Order Number: [id number] Reading MD: HAYDEE ROGEL Measurements Intervals [place] Rate: 100 P: 64 HI: 176 QRS: -4 QRSD: 86 T: 102 QT: 362 QTc: 468 Interpretive Statements SINUS TACHYCARDIA LOW QRS VOLTAGE IN PRECORDIAL LEADS [QRS DEFLECTION < 1.0 mV IN CHEST LEADS] SEPTAL MYOCARDIAL INFARCTION , OF INDETERMINATE AGE [40+ ms Q WAVE IN V1/V2] Compared to ECG 03/17/2024 07:13:04 Low QRS voltage now present Myocardial infarct finding still present Electronically Signed On 03-17-2024 16:14:41 LUGGAGE REPAIRER by HAYDEE ROGEL [email or web address]
[2024-03-17 11:06] LABS: Troponin 5 6HR 32.14 ng/L (0-15)
[2024-03-17 11:08] LABS: Troponin 5 6HR Delta -7.86 ng/L (0-12)
[2024-03-17] MEDS: norepinephrine 4 MG/250 ML BAG 30 MG IV (11:29)
--- NOTE | 2024-03-17 11:30 | P.HP_ITS ---
Providers/Chief Complaint 2 Admitting Physician: Chelsey Conde MD Primary Care Provider: Soto Escamilla MD Chief Complaint: cp History of Present Illness Vivek Corral is a 53 year old male with systolic heart failure, ischemic cardiomyopathy EF15%, status post PCI to LAD and circumflex, chronic neck pain, migraine, hypertension, history of recent admissions for above issues, bronchopneumonia, presents to the ER today for chest pain and shortness of breath. He has a life vest. Pain has been atypical, located in the lower chest, not radiating, 8/10 intensity at its peak. Ekg today is without any new changes, trop series mildly elevated but with serial negative deltas. CTA chest is negative for PE. Review of Systems 2 General: Reports: 10 or more systems reviewed and unremarkable except in HPI and below Const: Denies: fever(s), chills or body aches Eyes: Denies: change in vision, blurry vision or photophobia ENMT: Reports: hoarseness; Denies: throat pain, enlarged tonsils, odynophagia or nasal congestion Card: Denies: chest pain, palpitations, irregular heart rhythm, edema, swelling of feet/ankles, lightheadedness, pre-syncope, dyspnea on exertion or orthopnea Resp: Denies: dyspnea, productive cough, non-productive cough, wheezing, stridor, pain on inspiration, change in phlegm color, hemoptysis or chest congestion GI: Denies: abdominal pain, nausea, vomiting, hematemesis, coffee ground emesis, dysphagia, heartburn, diarrhea, constipation, GI cramping, change in stool character, hematochezia or melena : Denies: flank pain, dysuria, urinary frequency, urinary urgency, urinary hesitancy or hematuria Musc: Denies: neck pain, back pain, extremity pain, joint swelling, joint warmth or deformity Neuro: Denies: headache(s), numbness in extremities, weakness in extremities, sensory changes, difficulty walking, frequent falls, dizziness, vertigo, behavioral changes, Slurred speech present or seizure-like activity Psych: Denies: anxiety, depression, suicidal ideation or homicidal ideation Endo: Denies: polyuria, polydipsia, tired all the time, cold intolerance or hot flashes Gomez/Lymph: Denies: easy bruising or easy bleeding Medications/Allergies Home Medications Medication Instructions Recorded Confirmed Last Taken Type pantoprazole 40 mg tablet,delayed 40 mg PO DAILY 07/17/21 03/17/24 03/16/24 History release allopurinol 300 mg tablet 300 mg PO DAILY 03/04/24 03/17/24 03/16/24 History colchicine 0.6 mg tablet 2 mg PO ONCE PRN gout 03/04/24 03/17/24 Unknown History diazepam 2 mg tablet 2 mg PO DAILY PRN Anxiety 03/04/24 03/17/24 Unknown History aspirin 81 mg tablet,delayed 81 mg PO DAILY 30 days #30 tabs 03/12/24 03/17/24 03/16/24 Rx release atorvastatin 40 mg tablet 40 mg PO BEDTIME 30 days #30 tabs 03/12/24 03/17/24 03/16/24 Rx clopidogrel 75 mg tablet 75 mg PO DAILY 30 days #30 tabs 03/12/24 03/17/24 03/16/24 Rx nitroglycerin 0.4 mg sublingual 0.4 mg sublingual Q5M PRN Chest 03/12/24 03/17/24 Unknown Rx tablet Pain 30 days #30 tabs nystatin 100,000 unit/gram topical 1 applic topical BID 7 days #30 03/12/24 03/17/24 03/16/24 Rx powder (Nystop) grams ciprofloxacin HCl 250 mg tablet 250 mg PO BID 4 days #8 tabs 03/14/24 03/17/24 03/16/24 Rx (Cipro) metronidazole 500 mg tablet 500 mg PO BID 4 days #8 tabs 03/14/24 03/17/24 03/16/24 Rx doxycycline hyclate 100 mg tablet 100 mg PO DAILY 03/17/24 03/17/24 03/16/24 History Allergies Allergy/AdvReac Type Severity Reaction Status Date / Time sulfamethoxazole Allergy SWOLLEN Verified 03/17/24 05:11 [From ] TONGUE trimethoprim [From ] Allergy SWOLLEN Verified 03/17/24 05:11 TONGUE PFSH Acute 2 PFSH: Medical History Anesthesia complication prolonged sedation after anesthesia 06/26/2022 requiring ICU monitoring but no other intervention, not responsive to narcan; took 5-6 hours to wake up after surgery. Only thing identified is he had not slept for several days prior to surgery. Chronic migraine Depression Prediabetes History of narcotic use with prior pain treatment contract, not using regular narcotic pain control as of 06/26/2022 History of psychiatric care Acute encephalopathy Hypertension GERD (gastroesophageal reflux disease) Hyperlipidemia History of electroencephalogram 11/04/20 This was a normal routine EEG, awake and drowsy and asleep, with no behavioral or electrographic epileptiform activity. This patient was excessively sleepy and was not sleep deprived. Consider a sleep disorder if clinically appropriate. Bipolar disorder Gout [place] tick fever History of Holter monitoring 09/2019 baseline sinus tachycardia with heart rate of 135 bpm, no pauses or bradycardia, diminished heart rate variability 12/2019 baseline sinus rhythm at 94 bpm, symptomatic sinus tachycardia with heart rate 72-126 bpm Psychiatric care Hyperparathyroidism s/p partial parathyroidectomy Bleeding per rectum Had anoscope done by Dr Garcia 08/30/2020 with no fistulae, sinuses, induration, abscess formation or fissures = normal findings Other stimulant dependence, in remission prior methamphetamine use Bilateral renal stones Has seen Dr Bhatti in past, non-obstructive, remote lithotripsy, otherwise monitored for symptoms Cervical disc disease With cervical radiculopathy, spondylosis, spondylosis with myelopathy B12 deficiency 09/2019 Generalized anxiety disorder Cannabis dependence, uncomplicated history, unknown if still using as of 06/26/2022 Carpal tunnel syndrome, left upper limb by nerve conduction study performed 05/2019, has not had surgery as of 06/26/2022 Surgical History Status post cervical discectomy 06/26/2022 Dr Mcghee anterior cervical discectomy C4/C5 with insertion of cage, instrumentation with anterior plate C4-C5, with C4-C7 posterior fusion and instrumentation, use of allograft History of esophagogastroduodenoscopy (EGD) 2016 History of colonoscopy 2016 S/P extracorporeal shock wave therapy History of parathyroidectomy partial, performed by Dr Henderson, never followed-up after surgery History of lumbar laminectomy 09/01/2020 Dr Mcghee L4/5 with bilateral partial facetectomy History of neck surgery 03/24/2020 Dr Mcghee Anterior discectomy with insertion of cage/instrumentation/use of allograft and anterior plate at C5/6 & C6/7 History of cholecystectomy History of knee surgery Left knee arthroscopy 08/[address] Campbell, had MRSA Family History Brother Hypertension Valvular heart disease Grandfather Hypertension History of open heart surgery Father History of open heart surgery Social History Smoking and tobacco/nicotine status: current every day tobacco/nicotine user cigarettes Years cigarettes smoked: 35 Alcohol intake: current Alcohol intake frequency: few times a week Alcohol type: beer Substance/Drug Use: former Household members: other Details: lives with mother who is a former [employer] nurse Marital status: Current occupational status: unemployed and disabled Vitals/I&O/Wt Last Vital Signs Temp 97.8 F 03/17/24 05:01 Pulse 108 H 03/17/24 16:25 Resp 24 H 03/17/24 16:25 BP 134/96 03/17/24 16:25 Pulse Ox 94 03/17/24 16:25 O2 Del Method Room Air 03/17/24 15:13 03/17/24 03/17/24 03/17/24 06:59 14:59 22:59 Output Total 200 / 200 Balance -200 / -200 Weight last 48 hrs Weight 86 kg Weight 81.647 kg Physical Exam 2 Narrative: General: No acute distress, AO x3 HEENT: PERRLA, pupils bilaterally equal and reactive, pallors not present Chest: Normal vesicular breath sounds, no added sounds, equal good air entry bilaterally CVS: S1-S2 regular, no murmurs, no tachycardia, no gallops, no rubs Abdomen: Soft, nontender, no organomegaly, bowel sounds present Neuro: No focal deficits, no facial deformity, AO x3, power 5/5 in all limbs Data 03/17/24 04:25 03/17/24 05:27 Other data: Radiology Impressions Chest X-Ray 03/17/24 04:55 IMPRESSION: No acute changes from 03/14/2024. Chest/Abdomen/Pelvis CT 03/17/24 08:03 IMPRESSION: 1. No pulmonary embolism. 2. Marked LEFT heart enlargement. 3. Mild hazy attenuation throughout both lungs. Differential includes pneumonitis and mild interstitial edema. 4. No mediastinal or hilar adenopathy. 5. Hepatic and renal cysts. No interval change. 6. Moderate sigmoid diverticulosis without acute diverticulitis. 7. No ascites or pleural effusions. 8. Post catheterization changes at the RIGHT groin. 9. No ischemia or GI tract obstruction. Laboratory Results WBC 11.72 10^3/uL (3.29-11.43) H 03/17/24 04:25 RBC 4.56 10^6/uL (3.85-5.65) 03/17/24 04:25 Hgb 12.50 g/dL (11.27-16.99) 03/17/24 04:25 Hct 40.4 % (37-53) 03/17/24 04:25 MCV 88.6 fl (82-101) 03/17/24 04:25 MCH 27.4 pg (27-33) 03/17/24 04:25 MCHC 30.9 g/dL (30-55) 03/17/24 04:25 RDW 15.1 % (12.1-15.1) 03/17/24 04:25 Plt Count 459 10^3/cmm (157-399) H 03/17/24 04:25 MPV 10.2 fL (7.4-10.4) 03/17/24 04:25 Neut % (Auto) 63.4 % 03/17/24 04:25 Lymph % (Auto) 26.1 % 03/17/24 04:25 [place] % (Auto) 6.6 % 03/17/24 04:25 Eos % (Auto) 2.9 % 03/17/24 04:25 Baso % (Auto) 0.3 % 03/17/24 04:25 Neut # (Auto) 7.44 10^3/uL (1.8-7.7) 03/17/24 04:25 Lymph # (Auto) 3.1 10^3/uL (0.8-4.8) 03/17/24 04:25 [place] # (Auto) 0.8 10^3/uL (0.2-0.9) 03/17/24 04:25 Eos # (Auto) 0.3 10^3/uL (0.0-0.8) 03/17/24 04:25 Baso # (Auto) 0.0 10^3/uL (0.0-0.1) 03/17/24 04:25 Nucleated RBC % (auto) 0 % 03/17/24 04:25 Nucleated RBCs # 0.0 /100WBC 03/17/24 04:25 PT 13.60 SECONDS (12.1-14.9) 03/17/24 04:25 INR 1.01 (0.8-1.2) 03/17/24 04:25 APTT 57.1 SECONDS (23.9-36.7) H D 03/17/24 18:17 Sodium 138 mmol/L (136-145) 03/17/24 05:27 Potassium 4.5 mmol/L (3.5-5.1) 03/17/24 05:27 Chloride 103 mmol/L (98-107) 03/17/24 05:27 Carbon Dioxide 24 mmol/L (22-29) 03/17/24 05:27 Anion Gap 15.5 (5-19) 03/17/24 05:27 BUN 12 mg/dL (6-20) 03/17/24 05:27 Creatinine 1.1 mg/dL (0.7-1.2) 03/17/24 05:27 GFR Calculation 69.8 mL/min (90-130) L 03/17/24 05:27 Glucose 108 mg/dL (65-115) 03/17/24 05:27 Calculated Osmolality 286 mOsm/kg (285-295) 03/17/24 05:27 Calcium 9.3 mg/dL (8.5-10.5) 03/17/24 05:27 Total Bilirubin 0.5 mg/dL (0.15-1.2) 03/17/24 05:27 AST 26 U/L (0-40) 03/17/24 05:27 ALT 25 U/L (0-41) 03/17/24 05:27 Alkaline Phosphatase 133 U/L (40-130) H 03/17/24 05:27 Creatine Kinase 60 U/L (39-308) 03/17/24 05:27 Troponin T Baseline 40 ng/L (0-15) H 03/17/24 04:25 Troponin T 120 Minute 35.13 ng/L (0-15) H 03/17/24 07:11 Delta Troponin T -4.87 ABS# (0-10) L 03/17/24 07:11 Troponin T Hi Sens 6Hr 32.14 ng/L (0-15) H 03/17/24 10:41 Troponin T Hi Sens 6Hr Delta -7.86 ng/L (0-12) L 03/17/24 10:41 NT-Pro-B Natriuret Pep 5029 pg/mL (0-125) H 03/17/24 05:27 Total Protein 6.6 g/dL (6.6-8.7) 03/17/24 05:27 Albumin 3.7 g/dL (3.5-5.2) 03/17/24 05:27 Globulin 2.9 g/dL (1.3-4.6) 03/17/24 05:27 Lipase 70 U/L (13-60) H 03/17/24 05:27 Urine Color Yellow (Yellow) 03/17/24 05:38 Urine Appearance Clear (CLEAR) 03/17/24 05:38 Urine pH 8.5 (5-7) A 03/17/24 05:38 Ur Specific [place] 1.014 (1.005-1.030) 03/17/24 05:38 Urine Protein Negative (Negative) 03/17/24 05:38 Urine Glucose (UA) Negative (Normal) 03/17/24 05:38 Urine Ketones Negative (Negative) 03/17/24 05:38 Urine Blood Negative (Negative) 03/17/24 05:38 Urine Nitrate Negative (Negative) 03/17/24 05:38 Urine Bilirubin Negative (Negative) 03/17/24 05:38 Urine Urobilinogen 1.0 mg/dL (Negative) 03/17/24 05:38 Ur Leukocyte Esterase Negative (Negative) 03/17/24 05:38 Amorphous Sediment Not Reportable 03/17/24 05:38 Urine Opiates Screen Positive ng/mL (Negative) H 03/17/24 05:38 Ur Barbiturates Screen Negative ng/mL (Negative) 03/17/24 05:38 Ur Phencyclidine Scrn Negative ng/mL (Negative) 03/17/24 05:38 Ur Amphetamines Screen Negative ng/mL (Negative) 03/17/24 05:38 U Benzodiazepines Scrn Positive ng/mL (Negative) H 03/17/24 05:38 Urine Cocaine Screen Negative ng/mL (Negative) 12/09/24 05:38 U Marijuana (THC) Screen Negative ng/mL (Negative) 03/17/24 05:38 A&P Assessment and plan (1) Chest pain: Chest pain in patient with recent events as listed above. Cta chest is negative for PE Severe diffuse hypokinesia of the left ventricle with an ejection fraction of around 15%. Trop series with some elevation but negative deltas normal pancreas on CT imaging, lipase at 70, lower than previous admission s/p cholecytectomy, no biliary dilatation no dicerticulitis possibility of angina vs cardiac origin chest pain- not resolving with morphine , transient relief with nitroglycerin Admit to ICU Nitroglycerin gtt to be titrated per response Likely anticipate will need pressors along nitro infusion given soft BP- start levophed to titrate MAP > 65 started on heparin gtt per cardiac recommendations Continue ASA, plavix and statins cardiology consult appreciated Qualifiers: Chest pain type: unspecified Qualified Code(s): R07.9 - Chest pain, unspecified Attestations 2 Medical Necessity Statement*: > 2 midnight stay is anticipated Coding Level of Care Code Acute Code for Chg Fwd High MDM includes number and complexity of problems actively addressed during encounter, amount and/or complexity of data reviewed/ordered and described risk of complication, morbidity or mortality of management as documented Diagnoses Chest pain R07.9 Chest pain type: unspecified
[2024-03-17 11:37] LABS: Lipase 70 U/L (13-60)
[2024-03-17] MEDS: nitroglycerin drip 50 MG/250 ML PREMIX IV (11:38)
[2024-03-17] MEDS: heparin 5,000 unit/mL INJ 1 mL IVP (11:41)
[2024-03-17] MEDS: heparin drip 25,000 UNIT/500 ML PREMIX 22.86 UNIT IV (11:43)
[2024-03-17] MEDS: morphine 4 mg/mL SDV 1 mL 2 MG IVP (15:03)
--- NOTE | 2024-03-17 19:00 | PC.NURSE ---
MAR Upon initial assessment of patient, levophed administering at 4 mcg/min and heparin administering at 23 ml/hr while MAR displayed levo at 8 mcg/min and heparin at 22.86 ml/hr. MAR updated to reflect administration.
[2024-03-17 19:35] LABS: Partial Thromboplastin Time 57.1 SECONDS (23.9-36.7)
[2024-03-17] MEDS: atorvastatin 40 mg Tablet PO (23:09)
[2024-03-18] VITALS (100 sets, daily range): BP systolic 86–133; BP diastolic 55–94; PULSE 85–117; RESP 15–53; TEMP 36.7–36.8; O2SAT 91–99; BMI 29.7
[2024-03-18 01:12] LABS: Partial Thromboplastin Time 56.1 SECONDS (23.9-36.7)
[2024-03-18] MEDS: morphine 4 mg/mL SDV 1 mL 2 MG IVP ×2 (05:16→20:34)
[2024-03-18 06:39] LABS: Basophils % 0.2 %; Eosinophils # 0.4 10^3/uL (0.0-0.8); Eosinophils % 3.7 %; Lymphocytes # 2.3 10^3/uL (0.8-4.8); Lymphocytes % 21.4 %; Mean Corpuscular HGB Conc 30.8 g/dL (30-55); Mean Corpuscular Hemoglobin 27.6 pg (27-33); Mean Corpuscular Volume 89.9 fl (82-101); Mean Platelet Volume 9.8 fL (7.4-10.4); Monocytes # 0.6 10^3/uL (0.2-0.9); Monocytes % 5.4 %; Neutrophils # 7.37 10^3/uL (1.8-7.7); Neutrophils % 68.6 %; Nucleated Red Blood Cells % 0 %; Platelet Count 401 10^3/cmm (157-399); Red Blood Count 4.45 10^6/uL (3.85-5.65); Red Cell Distribution Width 15.3 % (12.1-15.1); White Blood Count 10.74 10^3/uL (3.29-11.43)
[2024-03-18 06:44] LABS: Partial Thromboplastin Time 62.1 SECONDS (23.9-36.7)
[2024-03-18 06:56] LABS: Magnesium 1.7 mg/dL (1.7-2.3)
[2024-03-18 07:51] LABS: Alanine Aminotransferase 27 U/L (0-41); Albumin Level 3.7 g/dL (3.5-5.2); Alkaline Phosphatase 136 U/L (40-130); Anion Gap 15.3 (5-19); Aspartate Amino Transferase 31 U/L (0-40); Blood Urea Nitrogen 12 mg/dL (6-20); Calcium 10.1 mg/dL (8.5-10.5); Carbon Dioxide 26 mmol/L (22-29); Chloride 101 mmol/L (98-107); Creatinine Clr Calc Pharmacy 85.6178; Globulin 3.3 g/dL (1.3-4.6); Glomerular Filtration Rate 77.9 mL/min (90-130); Glucose 151 mg/dL (65-115); Osmolality Calculated 289 mOsm/kg (285-295); Potassium 4.3 mmol/L (3.5-5.1); Sodium 138 mmol/L (136-145); Total Bilirubin 0.9 mg/dL (0.15-1.2)
[2024-03-18] MEDS: aspirin 81 mg EC Tablet PO (08:23)
[2024-03-18] MEDS: clopidogrel 75 mg Tablet PO (08:23)
[2024-03-18] MEDS: allopurinol 300 mg Tablet PO (08:23)
[2024-03-18] MEDS: pantoprazole DR 40 mg Tablet PO (08:23)
[2024-03-18] MEDS: heparin drip 25,000 UNIT/500 ML PREMIX 23 UNIT IV (08:29)
--- NOTE | 2024-03-18 08:50 | USCV_ITS ---
Vivek Corral Age: 53 Gender: M : 1970 Exam Date: 03/18/2024 09:13 Ordering Phys: Siobhan Gee MD ([email or web address]) Technologist: Exam Location: [facility] [place] Indication: ef BP: / HR: Rhythm: Sinus Technical Quality: Adequate MEASUREMENTS (Male / Female) Normal Values 2D ECHO LV Diastolic Diameter PLAX 6.1 cm 4.2 - 5.9 / 3.9 - 5.3 cm IVS Diastolic Thickness 1.2 cm 0.6 - 1.0 / 0.6 - 0.9 cm IVS Systolic Thickness 1.2 cm LVPW Diastolic Thickness 1.2 cm 0.6 - 1.0 / 0.6 - 0.9 cm LVPW Systolic Thickness 1.5 cm LVOT Diameter 2.1 cm LV Ejection Fraction 2D Teich 21.8 % LV Ejection Fraction MOD 4C 10.8 % LV Ejection Fraction MOD 2C 24.3 % LV Ejection Fraction 2C AL 27.2 % LA Diameter 4.0 cm RA Systolic Volume 4C AL 56.5 ml RA Systolic Volume 4C MOD 54.9 ml M-MODE LA Ao Ratio MM 1.0 AV Cusp Separation MM 2.2 cm FINDINGS Left Ventricle Severe diffuse hypokinesis of the left ventricle with an ejection fraction of around 17%. Moderately dilated LV cavity Right Ventricle Normal RV size with slightly diminished ejection fraction. Right Atrium Appears to be of normal size Left Atrium Mildly increased left atrial size. Mitral Valve Minimally thickened Aortic Valve Minimally thickened aortic valve. Tricuspid Valve No gross abnormalities noted Pulmonic Valve Pulmonic valve not well visualized. Pericardium No pericardial effusion. Aorta Normal aortic annulus size. IVC Inferior vena cava not visualized. CONCLUSIONS Severe diffuse hypokinesis of the left ventricle with an ejection fraction of around 17%. Moderately dilated LV cavity. Mildly increased left atrial size. Normal RV size with slightly diminished ejection fraction. Minimally thickened aortic and mitral valve. There is no pericardial effusion. There are no intracardiac masses. Compared to the study from previous study, there is no significant change, and the 2D findings Dr Siobhan Gee MD [facility] (Electronically Signed) Final Date: 18 March 2024 13:53 S
--- NOTE | 2024-03-18 08:51 | USCV_ITS ---
Vivek Corral Age: 53 Gender: M : 1970 Exam Date: 03/18/2024 09:07 Ordering Phys: Siobhan Gee MD ([email or web address] [place]) Technologist: USR Exam [place] [facility] [place]ication: ? rt psuedo anuer Findings A small heterogenous area just above the common femoral artery, measuring 0.9 x 0.7 cm No blood flow into this area. Conclusions Possible resolving hematoma in the right groin with no evidence of pseudoaneurysm Dr Siobhan Gee MD [facility] (Electronically Signed) Final Date: 20 March 2024 22:19 S
--- NOTE | 2024-03-18 08:52 | PM.PN ---
Subjective Subjective: Patient has been having episodes of chest pain through the night. He has aches and pains all over the body. Repeat echocardiogram was done today. Patient was found to have an LV ejection fraction of 17%. Essentially unchanged from the previous echocardiogram. Medications: Medication Review Details: Current Medications Acetaminophen (Acetaminophen 325 Mg Tablet) 650 mg PO Q6H PRN PRN Reason: Mild/Mod Pain Or Temp >/= 101 Allopurinol (Allopurinol 300 Mg Tablet) 300 mg PO DAILY [facility] Last Admin: 03/18/24 08:23 Dose: 300 mg Aspirin (Aspirin 81 Mg Ec Tablet) 81 mg PO DAILY [facility] Last Admin: 03/18/24 08:23 Dose: 81 mg Atorvastatin Calcium (Atorvastatin 40 Mg Tablet) 40 mg PO BEDTIME [facility] Last Admin: 03/17/24 23:09 Dose: 40 mg Clopidogrel Bisulfate (Clopidogrel 75 Mg Tablet) 75 mg PO DAILY [facility] Last Admin: 03/18/24 08:23 Dose: 75 mg Heparin Sodium (Porcine) (Heparin 5,000 Unit/Ml Inj 1 Ml) 0 unit IVP PRN PRN; Protocol PRN Reason: Heparin Weight Based Protocol -Subsequent Bolus Nitroglycerin/Dextrose (Nitroglycerin Drip) 50 mg in 250 mls @ 0 mls/hr IV .Q0M [facility]; Protocol Last Titration: 03/17/24 20:15 Dose: 20 mcg/min, 6 mls/hr Norepinephrine Bitartrate (Levophed) 4 mg in 250 mls @ 0 mls/hr IV .Q0M [facility]; Protocol Last Titration: 03/17/24 23:08 Dose: Infused Heparin Sodium/Sodium Chloride (Heparin Drip) 25,000 unit in 500 mls @ 0 mls/hr IV CONT [facility]; Protocol Last Admin: 03/18/24 08:29 Dose: 14.09 unit/kg/hr, 23 mls/hr Morphine Sulfate (Morphine 4 Mg/Ml Sdv 1 Ml) 2 mg IVP Q4H PRN PRN Reason: SEVERE PAIN Last Admin: 03/18/24 05:16 Dose: 2 mg Naloxone HCl (Naloxone 0.4 Mg/Ml Sdv) 0.1 mg IVP Q2M PRN PRN Reason: OPIATERV Ondansetron HCl (Ondansetron 2 Mg/Ml Sdv 2 Ml) 4 mg IVP Q6H PRN PRN Reason: NAUSEA AND VOMITING Ondansetron HCl (Ondansetron 2 Mg/Ml Sdv 2 Ml) 4 mg IVP Q8H PRN PRN Reason: vomiting, or N/V if npo Pantoprazole Sodium (Pantoprazole Dr 40 Mg Tablet) 40 mg PO DAILY [facility] Last Admin: 03/18/24 08:23 Dose: 40 mg Vitals/I&O/Wt Last Vital Signs Temp 98.1 F 03/18/24 04:45 Pulse 103 H 03/18/24 08:45 Resp 25 H 03/18/24 08:45 BP 116/74 03/18/24 08:45 Pulse Ox 95 03/18/24 08:45 O2 Del Method Room Air 03/18/24 04:45 O2 Flow Rate 2 03/18/24 01:30 03/17/24 03/18/24 03/18/24 22:59 06:59 14:59 Intake Total 815.588 / 766.154 2103.550 / 1897.138 37.183 / 37.183 Output Total 600 / 800 2220 / 3020 200 / 200 Balance 215.588 / 15.588 -1138.450 / -1122.862 -162.817 / -162.817 Weight last 48 hrs Weight 184 lb 1.376 oz Weight 189 lb 9.561 oz Weight 180 lb Physical Exam Narrative: GENERAL: The patient is alert and oriented times three. Not in any acute distress. HEENT: No significant pallor, icterus or lymphadenopathy.Oral cavity: There are no mucous membrane lesions. NECK: Trachea appears to be central. No masses noted. No JVD or thyromegaly appreciated. RESPIRATORY: Chest is symmetrical. No intercostals muscle retraction or any accessory muscle activation. There is no chest wall tenderness. Breath sounds are heard bilaterally. No rales or rhonchi heard. No evidence of any consolidation. BREASTS: Deferred. HEART: The heart sounds are normal. No S3 or S4. No significant murmurs. No pericardial rub ABDOMEN: No vessel pulsations or distention. Moderate tenderness in the right lower quadrant. No organomegaly appreciated. Bowel sounds are normally heard. Moderate tenderness in the right groin : Deferred. RECTAL: Deferred. LYMPHATIC: No lymphadenopathy noted in the neck. EXTREMITIES: No edema or cyanosis. No clubbing. MUSCULOSKELETAL: No acute joint deformities or swelling SKIN: There are no significant rashes or ecchymosis NEUROPSYCHIATRIC: The patient is alert and oriented x3. Appears to be in a good mood. No tremors or rigidity noted. Data 03/18/24 06:19 03/18/24 06:19 Other Labs: Laboratory Last Values WBC 10.74 10^3/uL (3.29-11.43) 03/18/24 06:19 RBC 4.45 10^6/uL (3.85-5.65) 03/18/24 06:19 Hgb 12.30 g/dL (11.27-16.99) 03/18/24 06:19 Hct 40.0 % (37-53) 03/18/24 06:19 MCV 89.9 fl (82-101) 03/18/24 06:19 MCH 27.6 pg (27-33) 03/18/24 06:19 MCHC 30.8 g/dL (30-55) 03/18/24 06:19 RDW 15.3 % (12.1-15.1) H 03/18/24 06:19 Plt Count 401 10^3/cmm (157-399) H 03/18/24 06:19 MPV 9.8 fL (7.4-10.4) 03/18/24 06:19 Neut % (Auto) 68.6 % 03/18/24 06:19 Lymph % (Auto) 21.4 % 03/18/24 06:19 [place] % (Auto) 5.4 % 03/18/24 06:19 Eos % (Auto) 3.7 % 03/18/24 06:19 Baso % (Auto) 0.2 % 03/18/24 06:19 Neut # (Auto) 7.37 10^3/uL (1.8-7.7) 03/18/24 06:19 Lymph # (Auto) 2.3 10^3/uL (0.8-4.8) 03/18/24 06:19 [place] # (Auto) 0.6 10^3/uL (0.2-0.9) 03/18/24 06:19 Eos # (Auto) 0.4 10^3/uL (0.0-0.8) 03/18/24 06:19 Baso # (Auto) 0.0 10^3/uL (0.0-0.1) 03/18/24 06:19 Nucleated RBC % (auto) 0 % 03/18/24 06:19 Nucleated RBCs # 0.0 /100WBC 03/18/24 06:19 PT 13.60 SECONDS (12.1-14.9) 03/17/24 04:25 INR 1.01 (0.8-1.2) 03/17/24 04:25 APTT 62.1 SECONDS (23.9-36.7) H 03/18/24 06:19 Sodium 138 mmol/L (136-145) 03/18/24 06:19 Potassium 4.3 mmol/L (3.5-5.1) 03/18/24 06:19 Chloride 101 mmol/L (98-107) 03/18/24 06:19 Carbon Dioxide 26 mmol/L (22-29) 03/18/24 06:19 Anion Gap 15.3 (5-19) 03/18/24 06:19 BUN 12 mg/dL (6-20) 03/18/24 06:19 Creatinine 1.0 mg/dL (0.7-1.2) 03/18/24 06:19 GFR Calculation 77.9 mL/min (90-130) L 03/18/24 06:19 Glucose 151 mg/dL (65-115) H 03/18/24 06:19 Calculated Osmolality 289 mOsm/kg (285-295) 03/18/24 06:19 Calcium 10.1 mg/dL (8.5-10.5) 03/18/24 06:19 Magnesium 1.7 mg/dL (1.7-2.3) 03/18/24 06:19 Total Bilirubin 0.9 mg/dL (0.15-1.2) 03/18/24 06:19 AST 31 U/L (0-40) 03/18/24 06:19 ALT 27 U/L (0-41) 03/18/24 06:19 Alkaline Phosphatase 136 U/L (40-130) H 03/18/24 06:19 Creatine Kinase 60 U/L (39-308) 03/17/24 05:27 Troponin T Baseline 40 ng/L (0-15) H 03/17/24 04:25 Troponin T 120 Minute 35.13 ng/L (0-15) H 03/17/24 07:11 Delta Troponin T -4.87 ABS# (0-10) L 03/17/24 07:11 Troponin T Hi Sens 6Hr 32.14 ng/L (0-15) H 03/17/24 10:41 Troponin T Hi Sens 6Hr Delta -7.86 ng/L (0-12) L 03/17/24 10:41 NT-Pro-B Natriuret Pep 5029 pg/mL (0-125) H 03/17/24 05:27 Total Protein 7.0 g/dL (6.6-8.7) 03/18/24 06:19 Albumin 3.7 g/dL (3.5-5.2) 03/18/24 06:19 Globulin 3.3 g/dL (1.3-4.6) 03/18/24 06:19 Lipase 70 U/L (13-60) H 03/17/24 05:27 Urine Color Yellow (Yellow) 03/17/24 05:38 Urine Appearance Clear (CLEAR) 03/17/24 05:38 Urine pH 8.5 (5-7) A 03/17/24 05:38 Ur Specific [place] 1.014 (1.005-1.030) 03/17/24 05:38 Urine Protein Negative (Negative) 03/17/24 05:38 Urine Glucose (UA) Negative (Normal) 03/17/24 05:38 Urine Ketones Negative (Negative) 03/17/24 05:38 Urine Blood Negative (Negative) 03/17/24 05:38 Urine Nitrate Negative (Negative) 03/17/24 05:38 Urine Bilirubin Negative (Negative) 03/17/24 05:38 Urine Urobilinogen 1.0 mg/dL (Negative) 03/17/24 05:38 Ur Leukocyte Esterase Negative (Negative) 03/17/24 05:38 Amorphous Sediment Not Reportable 03/17/24 05:38 Urine Opiates Screen Positive ng/mL (Negative) H 03/17/24 05:38 Ur Barbiturates Screen Negative ng/mL (Negative) 03/17/24 05:38 Ur Phencyclidine Scrn Negative ng/mL (Negative) 03/17/24 05:38 Ur Amphetamines Screen Negative ng/mL (Negative) 03/17/24 05:38 U Benzodiazepines Scrn Positive ng/mL (Negative) H 03/17/24 05:38 Urine Cocaine Screen Negative ng/mL (Negative) 03/17/24 05:38 U Marijuana (THC) Screen Negative ng/mL (Negative) 03/17/24 05:38 A&P Assessment and plan (1) Chest pain: Patient had a CTA of the chest which ruled out pulmonary embolism. Apparently there is no significant improvement in his LV ejection fraction after the PCI during the last hospital admission. Possibility of acute stent thrombosis is a consideration. The EKG is unremarkable. Qualifiers: Chest pain type: unspecified Qualified Code(s): R07.9 - Chest pain, unspecified (2) Recent non-ST elevation myocardial infarction: Patient status post cardiac catheterization followed by PCI of the LAD and circumflex artery. No evidence of any acute medical injury or any new EKG changes In view of his ongoing and worsening symptoms of chest pain, it may be appropriate to go ahead and do a repeat categorization to further evaluate his coronary status. (3) Ischemic cardiomyopathy: Repeat LV ejection fraction by echocardiogram today revealed an EF of 17%. This is essentially unchanged from the previous study. (4) Bipolar disorder, current episode depressed, moderate: Continue on the current management. (5) Other stimulant dependence, in remission: According the patient he did not take any illicit drugs since the hospital discharge Plan In view of the patient's ongoing chest pain, it may be appropriate to go ahead and do a repeat cardiac catheterization to reevaluate the coronary arteries and then decide on further management. I discussed this in detail with the patient with the risk and benefits. Patient is wanting to go ahead with the procedure. The risk of bleeding, hematoma, vascular injury, myocardial infarction, myocardial perforation, malignant cardiac arrhythmias ,CVA, renal failure and other concomitant complications were explained in detail. Patient understood this well and consented to proceed Because the scheduling conflict, I may ask my colleague Dr. Alcocer to perform this procedure. Attestations Medical Necessity Statement*: Patient requires continued hospital stay for close monitoring and further management Coding Level of Care Code 29474 Diagnoses Chest pain R07.9 Chest pain type: unspecified Recent non-ST elevation myocardial infarction Ischemic cardiomyopathy I25.5 Bipolar disorder, current episode depressed, moderate F31.32 Other stimulant dependence, in remission F15.21
--- NOTE | 2024-03-18 10:14 | XACV_ITS ---
Exam Room: 2 Ht: 168 cm Wt: 83 kg BSA: 2.00 m2 Gender: Male : 1970 Any Known Allergies: Other Exam Priority: Routine Procedure(s): Procedure Description: Diagnostic procedure Procedure Description: Left Heart Catheterization Procedure Description: Coronary Angiography Diagnostic Cath Status: Elective Diagnostic Findings * INDICATION: Worsening angina/ LV dysfunction. * No significant disease noted in the Left Main, Left Anterior Descending, Right, or Circumflex coronary arteries. Patent prior stents in proximal LAD and distal left circumflex arteries. * Coronary angiography shows right dominance. Conclusions 1. No significant disease noted in the Left Main, Left Anterior Descending, Right, or Circumflex coronary arteries. Patent prior stents in proximal LAD and distal left circumflex arteries. Recommendations * Aggressive guideline directed heart failure therapy. * Outpatient cardiology follow up in 2 weeks. Interventional RX Recommendation: medical therapy and/or counseling Diagnostic RX Recommendation: medical therapy and/or counseling Pressures Phase:Rest AO : 111 / 76 ( 91 ) @ 12:33:00 PM 110 / 75 ( 91 ) @ 12:33:00 PM LV : 118 / -6 / 21 @ 12:32:00 PM 118 / -6 / 18 @ 12:33:00 PM Valves Phase:DefaultPhase AV : 8.0 @ 12:42:53 PM AV Mean Gradient: 15.0 @ 12:42:53 PM Clinical Evaluation EBL: 5mL-10mL Procedural Details Procedure Consent Obtained. Admit Source: In Patient. Pre-Procedure Time Out. Identified patient by full name and date of as verbalized by the patient/guarantor. Does the consent match the physician's order: Yes. Accurate & Complete Informed Consent: Yes. Inpatient/Outpatient History & Physical on Chart: Yes. If H&P is completed, is and addenduem needed: No; If yes, is the addendum complete: N/A. Visualize and Verify Site with Patient/Guarantor: N/A. Relevant Radiology Images available: N/A. The risks, benefits, and alternatives of sedation and/or procedure were discussed by physician. The patient agrees to continue. Procedure started. [facility] Clinical Fraility Score: 6: Moderately Frail. Benefit Specialist Indications: Worsening Angina. Chest Pain Symptom Assessment: Typical Angina Symptoms. Correct patient, site and procedure confirmed by cath team. Current diagnosis: Chest Pain, LV dysfunction. PERRLA. 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 Lungs clear x 5 lobes. IV Site on Arrival: 20 gauge in the right wrist. IV Site on Arrival: 20 gauge in the right anticubital. IV Site on Arrival: Midline right upper arm. IV Fluids: 0.9% NaCl at KVO. 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 Pre Procedural Pulses: bilateral dorsalis pedis was Doppled. Pre Procedural Pulses: bilateral posterior tibial was Doppled. Oxygen started at 2liters/min via nasal canula. left groin was prepped with chloroprep then draped in the usual sterile fashion. Physician notified. Baseline sample Acquired. HR: 118 BPM. Physician arrived. Physician scrubbed in. Immediate Pre-Procedure Time Out. Correct Patient: Yes; Correct Procedure: Yes; Correct Site: Yes; Correct Patient Position: Yes; Correct Supplies: Yes; Dried Flammable Prep: Yes; Blood Products Available: No;. Lidocaine 1% infiltrated to the left groin. Arterial access obtained with micropuncture set. A 5 syriac JL4 catheter in over wire. Multiple views taken of left coronary artery. Catheter removed over the standard wire. A 5 syriac JR4 catheter in over wire. EDP Sample taken: LV 118/-7,21; HR: 99 BPM; SpO2: 94%. Pullback taken: LV 118/-7,18; AO 111/76(91); Mean: 15mmHg, Peak to Peak: 8mmHg, SEP: 9sec/min; HR: 99 BPM; SpO2: 94%. Catheter redirected to the RCA. Multiple views taken of right coronary artery. Catheter removed over the standard wire. A Left femoral angiogram was performed to determine safe placement of closure device. A Mynx was successful obtaining hemostatsis at the Left Femoral artery insertion site. LOT # [id number] EXP 11-15-26. Post Procedure: Pulses reassessed and unchanged. PERRLA. 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 No VTE prophylaxis required. Medication's Wasted: Lidocaine 1% = 10 mL. Medication's Wasted: Heparin = 1000 units. Medication's Wasted: Other = Fentanyl 50mcg. Total IV fluids: 20 mL. Estimated blood loss: 5mL-10mL. Complications: None. Responsiveness - Normal response to verbal stimuli; alert and oriented, PERRLA. Airway - Unaffected, no intervention required; spontaneous ventilation. Circulation: W/N/L, pulses unchanged. Nausea/Vomiting: No. Post-op diagnosis: Patent prior stents. No significant CAD. Procedure completed. Patient transferred by bed to ICU. Vital chart was stopped. Access Site Site: Left Femoral artery Sheath Size: 6 Fr Hemostasis Method: Mynx Hemostasis Success: Successful Procedure Medications Start: 12:21 PM Stop: 12:21 PM Medication: Benadryl Amount: 25 mg Route: I.V. Start: 12:23 PM Stop: 12:23 PM Medication: Versed Amount: 1 mg Route: I.V. Start: 12:23 PM Stop: 12:23 PM Medication: Fentanyl Amount: 25 mcg Route: I.V. Start: 12:26 PM Stop: 12:26 PM Medication: Versed Amount: 1 mg Route: I.V. Start: 12:36 PM Stop: 12:36 PM Medication: Fentanyl Amount: 25 mcg Route: I.V. I, the attending physician, have reviewed and verified all procedure medications. Yes, all medications given per verbal order History/Risk Factors Hypertension: Yes Dyslipidemia: Yes Peripheral Arterial Disease (PAD): No Myocardial Infarction (VT): Yes Obesity: No Renal Disease: No Tobacco Use: Current/Recent(w/in 1 year) Prior Interventions PCI: Yes CABG: No Valve Surgery: No Date of PCI: 03/10/2024 Report Signatures Finalized by Pranay Alcocer MD on 03/18/2024 02:09 PM
[2024-03-18] MEDS: digoxin 250 mcg/ml INJ 2 mL IVP ×3 (10:24→21:09)
--- NOTE | 2024-03-18 12:20 | W.PM.OPSUD ---
Surgery/Procedure H&P Update DATE OF PROCEDURE: March 18, 2024 DATE H&P PERFORMED: 03/17/24 H&P UPDATE INFORMATION: I have reviewed H&P completed within last 30 days, I have examined patient prior to procedure and No changes to prior documentation PREOP DIAGNOSIS: Worsening angina/LV dysfunction PRIMARY INDICATION FOR PROCEDURE: Worsening angina/LV dysfunction PLANNED PROCEDURE: Left heart cath with possible percutaneous coronary intervention PATIENT REASSESSED PRIOR TO SEDATION, WITH NO CHANGE NOTED: Yes PHYSICAL EXAM: alert, oriented x 3, regular rate & rhythm and operative site marked OTHER PERTINENT EXAM FINDINGS: Diminished air entry bilaterally AIRWAY EVAL/ANESTHESIA PLAN: normal airway, ASA III, Local Anesthesia, Risks, benefits & alternatives of sedation and/or procedure discussed and Patient agrees to continue as planned ADDITIONAL INFORMATION: Moderate sedation
--- NOTE | 2024-03-18 12:22 | PC.NURSE ---
Patient went to cath lab technologist around 1200
--- NOTE | 2024-03-18 12:56 | PM.PROC ---
Procedure Note: Date of procedure: 03/18/24 Pre-procedure diagnosis: Worsening angina/ LV dysfunction Post-procedure diagnosis: other Procedure: Left heart cath: Patent recent LAD and left circumflex artery stents. No significant CAD. Aggressive guideline directed medical therapy for heart failure Op report anesthesia: Other (Moderate sedation/local anesthesia) Estimated blood loss (mL): 5 Complications: None Pathology: none sent Condition: stable Disposition: ICU Coding Level of Care Code Acute Code for [facility]
--- NOTE | 2024-03-18 14:48 | PC.NURSE ---
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
--- NOTE | 2024-03-18 17:09 | XRR_ITS ---
PROCEDURE INFORMATION: Exam: XR Lumbosacral Spine Exam date and time: 03/18/2024 6:48 PM Age: 53 years old Clinical indication: Low back pain; Additional info: Hardware, persistent pain, assess for pathological fracture TECHNIQUE: Imaging protocol: Radiologic exam of the lumbosacral spine. Views: 2 or 3 views. COMPARISON: OT XR lumbar spine 2-3V* [id number] 09/01/2020 1:09 PM FINDINGS: Bones/joints: There are degenerative changes throughout the visualized spine including marginal osteophyte formations, endplate degenerative changes, and facet arthropathy. Multilevel disc space narrowing. Grade 1 degenerative retrolisthesis of L3 on L4. Soft tissues: Unremarkable. XR/XR lumbar spine 2-3V* [id number] IMPRESSION: There are degenerative changes as described above. No evidence for acute fracture.
--- NOTE | 2024-03-18 17:09 | XRR_ITS ---
PROCEDURE INFORMATION: Exam: XR Cervical Spine Exam date and time: 03/18/2024 6:45 PM Age: 53 years old Clinical indication: neck pain, past surgery and hardware, persistent pain, TECHNIQUE: Imaging protocol: Radiologic exam of the cervical spine. Views: 2 or 3 views. COMPARISON: CR XR cervical spine 3V* [id number] 05/01/2023 10:19 AM FINDINGS: Bones/joints: Status post posterior decompression with bilateral pedicle screws and intervening stabilization bars from C4 through C7. Anterior and interbody fusion changes at C4-C5, C5-C6, and C6-C7 levels unchanged from the prior study. Hardware appears intact without obvious complication. Usual cervical lordosis is straightened. There are degenerative changes throughout the visualized spine including marginal osteophyte formations, endplate degenerative changes, and facet arthropathy. Multilevel disc space narrowing. Soft tissues: Unremarkable. XR/XR cervical spine 3V* [id number] IMPRESSION: There are degenerative and postoperative changes in the cervical spine as described above. Changes are stable when compared to the prior study.
--- NOTE | 2024-03-18 18:11 | P.PN_ITS ---
Subjective 2 Subjective: underwent ang Medications: Medication Review Details: Current Medications Acetaminophen (Acetaminophen 325 Mg Tablet) 650 mg PO Q6H PRN PRN Reason: Mild/Mod Pain Or Temp >/= 101 Allopurinol (Allopurinol 300 Mg Tablet) 300 mg PO DAILY [facility] Last Admin: 03/18/24 08:23 Dose: 300 mg Aspirin (Aspirin 81 Mg Ec Tablet) 81 mg PO DAILY [facility] Last Admin: 03/18/24 08:23 Dose: 81 mg Atorvastatin Calcium (Atorvastatin 40 Mg Tablet) 40 mg PO BEDTIME [facility] Last Admin: 03/17/24 23:09 Dose: 40 mg Clopidogrel Bisulfate (Clopidogrel 75 Mg Tablet) 75 mg PO DAILY [facility] Last Admin: 03/18/24 08:23 Dose: 75 mg Heparin Sodium (Porcine) (Heparin 5,000 Unit/Ml Inj 1 Ml) 0 unit IVP PRN PRN; Protocol PRN Reason: Heparin Weight Based Protocol -Subsequent Bolus Nitroglycerin/Dextrose (Nitroglycerin Drip) 50 mg in 250 mls @ 0 mls/hr IV .Q0M [facility]; Protocol Last Titration: 03/17/24 20:15 Dose: 20 mcg/min, 6 mls/hr Norepinephrine Bitartrate (Levophed) 4 mg in 250 mls @ 0 mls/hr IV .Q0M [facility]; Protocol Last Titration: 03/17/24 23:08 Dose: Infused Heparin Sodium/Sodium Chloride (Heparin Drip) 25,000 unit in 500 mls @ 0 mls/hr IV CONT [facility]; Protocol Last Admin: 03/18/24 08:29 Dose: 14.09 unit/kg/hr, 23 mls/hr Morphine Sulfate (Morphine 4 Mg/Ml Sdv 1 Ml) 2 mg IVP Q4H PRN PRN Reason: SEVERE PAIN Last Admin: 03/18/24 05:16 Dose: 2 mg Naloxone HCl (Naloxone 0.4 Mg/Ml Sdv) 0.1 mg IVP Q2M PRN PRN Reason: OPIATERV Ondansetron HCl (Ondansetron 2 Mg/Ml Sdv 2 Ml) 4 mg IVP Q6H PRN PRN Reason: NAUSEA AND VOMITING Ondansetron HCl (Ondansetron 2 Mg/Ml Sdv 2 Ml) 4 mg IVP Q8H PRN PRN Reason: vomiting, or N/V if npo Pantoprazole Sodium (Pantoprazole Dr 40 Mg Tablet) 40 mg PO DAILY [facility] Last Admin: 03/18/24 08:23 Dose: 40 mg Vitals/I&O/Wt Last Vital Signs Temp 98.1 F 03/18/24 04:45 Pulse 100 03/18/24 16:15 Resp 20 H 03/18/24 16:15 BP 107/70 03/18/24 16:15 Pulse Ox 94 03/18/24 16:15 O2 Del Method Room Air 03/18/24 11:17 O2 Flow Rate 2 03/18/24 01:30 03/18/24 03/18/24 03/18/24 06:59 14:59 22:59 Intake Total 1081.550 / 1897.138 212.566 / 212.566 240 / 452.566 Output Total 2220 / 3020 550 / 550 600 / 1150 Balance -1138.450 / -1122.862 -337.434 / -337.434 -360 / -697.434 Weight last 48 hrs Weight 83.5 kg Weight 86 kg Weight 81.647 kg Physical Exam 2 Narrative: General: No acute distress, AO x3 HEENT: PERRLA, pupils bilaterally equal and reactive, pallors not present Chest: Normal vesicular breath sounds, no added sounds, equal good air entry bilaterally CVS: S1-S2 regular, no murmurs, no tachycardia, no gallops, no rubs Abdomen: Soft, nontender, no organomegaly, bowel sounds present Neuro: No focal deficits, no facial deformity, AO x3, power 5/5 in all limbs Data 03/19/24 04:25 03/19/24 04:25 A&P Assessment and plan (1) Chest pain: Chest pain in patient with recent events as listed above. Cta chest is negative for PE Severe diffuse hypokinesia of the left ventricle with an ejection fraction of around 15%. Trop series with some elevation but negative deltas normal pancreas on CT imaging, lipase at 70, lower than previous admission s/p cholecytectomy, no biliary dilatation no dicerticulitis possibility of angina vs cardiac origin chest pain- not resolving with morphine , transient relief with nitroglycerin Admit to ICU Nitroglycerin gtt to be titrated per response Likely anticipate will need pressors along nitro infusion given soft BP- start levophed to titrate MAP > 65 started on heparin gtt per cardiac recommendations Continue ASA, plavix and statins cardiology consult appreciated Qualifiers: Chest pain type: unspecified Qualified Code(s): R07.9 - Chest pain, unspecified Plan 03/18/24: underwent angiogram this morning which showed patent stents, no obstruction. Still continues to c/o pain, with normal angiogram and CTA chest negative for PE, possibility of musculoskeletal vs neuropathic pain. Patient has a h/o migraines and neuropathic pain for which he used to follow with pain management. He has hardware in his back. Will obtain X ray of the lumbar and C spines to assess for any pathological fractures. HE has previsouly been established with Dr. chang and would like to see him again. Declines gabapentin and lyrica stating they made him too sleepy. declines tramadol stating he hasnt done well with it in the past. Bp better today. D/c heparin. pain less likely cardiac with patent stents Attestations 2 Medical Necessity Statement*: x rays today, anticipate discharge over next 24 hrs if remains stable. Coding Level of Care Code Acute Code for [facility] Diagnoses Chest pain R07.9 Chest pain type: unspecified
[2024-03-18] MEDS: atorvastatin 40 mg Tablet PO (21:09)
[2024-03-18] MEDS: HYDROmorphone 1 mg/mL INJ 1 mL 0.4 MG IVP (23:42)
[2024-03-19] VITALS (60 sets, daily range): BP systolic 80–140; BP diastolic 23–90; PULSE 98–114; RESP 15–32; TEMP 36.6–36.8; O2SAT 89–99
--- NOTE | 2024-03-19 00:19 | PC.NURSE ---
Called to pt room at 2030. Pt gimacing, tense, respirations 26 per min, sweat on forehead, guarding, and complaining of severe flank pain. Dressing to left groin clean, dry, and intact, palpated and no hematoma noted, pt yelled out when groin palpated, distal pulses WNL. Contacted Dr. Ramirez (bar machine operator production) and made aware of pt complaints. Adminstered PRN MS which pt stated helped pain. Assessed by Dr. Ramirez, no abnormal findings. Pt again called at 2300 complaining of excruciating flank and groin pain. Dressing to left groin clean, dry, and intact, distal pulses WNL, no hematoma to groin, findings as above. PRN Xanax administered and Dr. Fan made aware of findings and that pt had already been assessed by Dr. Ramirez. Ordered Dilaudid 0.4 mg IV x1. Med administered and pt resting quietly.
[2024-03-19] MEDS: digoxin 250 mcg/ml INJ 2 mL IVP (04:30)
[2024-03-19 05:02] LABS: Basophils % 0.2 %; Eosinophils # 0.5 10^3/uL (0.0-0.8); Eosinophils % 4.7 %; Hematocrit 37.6 % (37-53); Lymphocytes # 2.2 10^3/uL (0.8-4.8); Lymphocytes % 22.5 %; Mean Corpuscular HGB Conc 31.1 g/dL (30-55); Mean Corpuscular Hemoglobin 27.7 pg (27-33); Mean Corpuscular Volume 88.9 fl (82-101); Mean Platelet Volume 9.7 fL (7.4-10.4); Monocytes # 0.8 10^3/uL (0.2-0.9); Monocytes % 7.9 %; Neutrophils # 6.28 10^3/uL (1.8-7.7); Neutrophils % 64.4 %; Nucleated Red Blood Cells % 0 %; Platelet Count 404 10^3/cmm (157-399); Red Blood Count 4.23 10^6/uL (3.85-5.65); Red Cell Distribution Width 15.3 % (12.1-15.1); White Blood Count 9.76 10^3/uL (3.29-11.43)
[2024-03-19 05:25] LABS: Alanine Aminotransferase 23 U/L (0-41); Albumin Level 3.5 g/dL (3.5-5.2); Alkaline Phosphatase 116 U/L (40-130); Anion Gap 14.1 (5-19); Aspartate Amino Transferase 24 U/L (0-40); Blood Urea Nitrogen 16 mg/dL (6-20); Calcium 9.8 mg/dL (8.5-10.5); Carbon Dioxide 25 mmol/L (22-29); Chloride 104 mmol/L (98-107); Creatinine Clr Calc Pharmacy 71.3481; Globulin 2.9 g/dL (1.3-4.6); Glomerular Filtration Rate 63.1 mL/min (90-130); Glucose 177 mg/dL (65-115); Osmolality Calculated 294 mOsm/kg (285-295); Potassium 4.1 mmol/L (3.5-5.1); Sodium 139 mmol/L (136-145); Total Bilirubin 0.5 mg/dL (0.15-1.2); Total Protein 6.4 g/dL (6.6-8.7)
[2024-03-19] MEDS: pantoprazole DR 40 mg Tablet PO (08:44)
[2024-03-19] MEDS: allopurinol 300 mg Tablet PO (08:44)
[2024-03-19] MEDS: clopidogrel 75 mg Tablet PO (08:44)
[2024-03-19] MEDS: aspirin 81 mg EC Tablet PO (08:44)
[2024-03-19] MEDS: morphine 4 mg/mL SDV 1 mL 2 MG IVP (12:29)
--- NOTE | 2024-03-19 12:47 | PC.NURSE ---
Patient complaining of not being able to pee, screaming out in pain. Bladder scanned patient. 200mL's present. In about an hour patient continues to complain on unable to urinate, bladder scanned patient again, 400mLs present. Walked patient to bathroom, administered pain medication per MAR, patient urinated well.
--- NOTE | 2024-03-19 15:08 | PC.NURSE ---
Patient received discharge orders. All follow up appointments made. Home meds given back to patient along with wallet and money counted with another RN in front of patient, totaling 26$. Witnessed by ITA Galvan. All IV's removed. Patient verbalized understanding. No new questions at this time. Car tender will be arriving to bean picker patient.
--- NOTE | 2024-03-19 16:07 | PC.NURSE ---
Patient taken to main exit, sitting awake alert and appropriate in w/c awaiting car tender fruit picker.
--- NOTE | 2024-04-08 07:34 | P.DS_ITS ---
Discharge Providers Date of Admission: 03/17/24 11:07 Date of Discharge: March 19, 2024 Attending Provider at Admission: Chelsey Conde MD Attending Provider at Discharge: Chelsey Conde MD Primary Care Provider: Soto Escamilla MD Diagnoses at Discharge Discharge Diagnosis (1) Chest pain: Status: Inactive Qualifiers: Chest pain type: unspecified Qualified Code(s): R07.9 - Chest pain, unspecified Reason for Visit Reason for Visit: cp Hospital Course Hospital Course 53 year old male with CAD, ischemic cardiomyopathy with EF 15% came with chest pain. He underwent coronary evaluation to assess patency of his stents and any new disease- LHC showed patent stents and no major occlusion. CTA was negative for pe. he co tinued to intermittent pain affecting the cervical and lumabr areas of the back. reveiw of chart shows he has followed with pain managemnet in the past. X ray of [facility] C spine showed intact prior hardware, no pathological fractures. Lumbar X ray showed degenerative changes, osteophytes and facet arthorpathy with disc space narrowing. Likelu neuropathic pain component contributing. He declined addition of gabapentin, lyrica stating he has not tolerated these well in the past. Referral provided to pain management and Spine surgery Dr. Mcghee for outpatient assessment Physical Exam Narrative: General: No acute distress, AO x3 HEENT: PERRLA, pupils bilaterally equal and reactive, pallors not present Chest: Normal vesicular breath sounds, no added sounds, equal good air entry bilaterally CVS: S1-S2 regular, no murmurs, no tachycardia, no gallops, no rubs Abdomen: Soft, nontender, no organomegaly, bowel sounds present Neuro: No focal deficits, no facial deformity, AO x3, power 5/5 in all limbs Discharge Data Studies Completed and Pending Completed Studies During Hospitalization Category Date Time Status CT angio chest w abd pel w con Stat Cat Scan 03/17/24 08:03 Completed GIS DATABASE ADMINISTRATOR request for service Routine Exams 03/18/24 10:14 Completed XR cervical spine 3V* [id number] Routine Exams 03/18/24 17:09 Completed XR chest 1V portable [id number] Stat Exams 03/17/24 04:55 Completed XR lumbar spine 2-3V* [id number] Routine Exams 03/18/24 17:09 Completed US arterial duplex groin RT [CV arterial dup groin RT Ultrasound 03/18/24 08:51 Completed [id number]] Routine US echo limited [CV. echo limited [id number]] Routine Ultrasound 03/18/24 08:50 Completed Radiology Impressions Chest X-Ray 03/17/24 04:55 IMPRESSION: No acute changes from 03/14/2024. Chest/Abdomen/Pelvis CT 03/17/24 08:03 IMPRESSION: 1. No pulmonary embolism. 2. Marked LEFT heart enlargement. 3. Mild hazy attenuation throughout both lungs. Differential includes pneumonitis and mild interstitial edema. 4. No mediastinal or hilar adenopathy. 5. Hepatic and renal cysts. No interval change. 6. Moderate sigmoid diverticulosis without acute diverticulitis. 7. No ascites or pleural effusions. 8. Post catheterization changes at the RIGHT groin. 9. No ischemia or GI tract obstruction. Cervical Spine X-Ray 03/18/24 17:09 IMPRESSION: There are degenerative and postoperative changes in the cervical spine as described above. Changes are stable when compared to the prior study. Lumbar Spine X-Ray 03/18/24 17:09 IMPRESSION: There are degenerative changes as described above. No evidence for acute fracture. Laboratory Results WBC 9.76 10^3/uL (3.29-11.43) 03/19/24 04:25 RBC 4.23 10^6/uL (3.85-5.65) 03/19/24 04:25 Hgb 11.70 g/dL (11.27-16.99) 03/19/24 04:25 Hct 37.6 % (37-53) 03/19/24 04:25 MCV 88.9 fl (82-101) 03/19/24 04:25 MCH 27.7 pg (27-33) 03/19/24 04:25 MCHC 31.1 g/dL (30-55) 03/19/24 04:25 RDW 15.3 % (12.1-15.1) H 03/19/24 04:25 Plt Count 404 10^3/cmm (157-399) H 03/19/24 04:25 MPV 9.7 fL (7.4-10.4) 03/19/24 04:25 Neut % (Auto) 64.4 % 03/19/24 04:25 Lymph % (Auto) 22.5 % 03/19/24 04:25 [place] % (Auto) 7.9 % 03/19/24 04:25 Eos % (Auto) 4.7 % 03/19/24 04:25 Baso % (Auto) 0.2 % 03/19/24 04:25 Neut # (Auto) 6.28 10^3/uL (1.8-7.7) 03/19/24 04:25 Lymph # (Auto) 2.2 10^3/uL (0.8-4.8) 03/19/24 04:25 [place] # (Auto) 0.8 10^3/uL (0.2-0.9) 03/19/24 04:25 Eos # (Auto) 0.5 10^3/uL (0.0-0.8) 03/19/24 04:25 Baso # (Auto) 0.0 10^3/uL (0.0-0.1) 03/19/24 04:25 Nucleated RBC % (auto) 0 % 03/19/24 04:25 Nucleated RBCs # 0.0 /100WBC 03/19/24 04:25 PT 13.60 SECONDS (12.1-14.9) 03/17/24 04:25 INR 1.01 (0.8-1.2) 03/17/24 04:25 APTT 62.1 SECONDS (23.9-36.7) H 03/18/24 06:19 Sodium 139 mmol/L (136-145) 03/19/24 04:25 Potassium 4.1 mmol/L (3.5-5.1) 03/19/24 04:25 Chloride 104 mmol/L (98-107) 03/19/24 04:25 Carbon Dioxide 25 mmol/L (22-29) 03/19/24 04:25 Anion Gap 14.1 (5-19) 03/19/24 04:25 BUN 16 mg/dL (6-20) 03/19/24 04:25 Creatinine 1.2 mg/dL (0.7-1.2) 03/19/24 04:25 GFR Calculation 63.1 mL/min (90-130) L 03/19/24 04:25 Glucose 177 mg/dL (65-115) H 03/19/24 04:25 Calculated Osmolality 294 mOsm/kg (285-295) 03/19/24 04:25 Calcium 9.8 mg/dL (8.5-10.5) 03/19/24 04:25 Magnesium 1.7 mg/dL (1.7-2.3) 03/18/24 06:19 Total Bilirubin 0.5 mg/dL (0.15-1.2) 03/19/24 04:25 AST 24 U/L (0-40) 03/19/24 04:25 ALT 23 U/L (0-41) 03/19/24 04:25 Alkaline Phosphatase 116 U/L (40-130) 03/19/24 04:25 Creatine Kinase 60 U/L (39-308) 03/17/24 05:27 Troponin T Baseline 40 ng/L (0-15) H 03/17/24 04:25 Troponin T 120 Minute 35.13 ng/L (0-15) H 03/17/24 07:11 Delta Troponin T -4.87 ABS# (0-10) L 03/17/24 07:11 Troponin T Hi Sens 6Hr 32.14 ng/L (0-15) H 03/17/24 10:41 Troponin T Hi Sens 6Hr Delta -7.86 ng/L (0-12) L 03/17/24 10:41 NT-Pro-B Natriuret Pep 5029 pg/mL (0-125) H 03/17/24 05:27 Total Protein 6.4 g/dL (6.6-8.7) L 03/19/24 04:25 Albumin 3.5 g/dL (3.5-5.2) 03/19/24 04:25 Globulin 2.9 g/dL (1.3-4.6) 03/19/24 04:25 Lipase 70 U/L (13-60) H 03/17/24 05:27 Urine Color Yellow (Yellow) 03/17/24 05:38 Urine Appearance Clear (CLEAR) 03/17/24 05:38 Urine pH 8.5 (5-7) A 03/17/24 05:38 Ur Specific [place] 1.014 (1.005-1.030) 03/17/24 05:38 Urine Protein Negative (Negative) 03/17/24 05:38 Urine Glucose (UA) Negative (Normal) 03/17/24 05:38 Urine Ketones Negative (Negative) 03/17/24 05:38 Urine Blood Negative (Negative) 03/17/24 05:38 Urine Nitrate Negative (Negative) 03/17/24 05:38 Urine Bilirubin Negative (Negative) 03/17/24 05:38 Urine Urobilinogen 1.0 mg/dL (Negative) 03/17/24 05:38 Ur Leukocyte Esterase Negative (Negative) 03/17/24 05:38 Amorphous Sediment Not Reportable 03/17/24 05:38 Urine Opiates Screen Positive ng/mL (Negative) H 03/17/24 05:38 Ur Barbiturates Screen Negative ng/mL (Negative) 03/17/24 05:38 Ur Phencyclidine Scrn Negative ng/mL (Negative) 03/17/24 05:38 Ur Amphetamines Screen Negative ng/mL (Negative) 03/17/24 05:38 U Benzodiazepines Scrn Positive ng/mL (Negative) H 03/17/24 05:38 Urine Cocaine Screen Negative ng/mL (Negative) 03/17/24 05:38 U Marijuana (THC) Screen Negative ng/mL (Negative) 03/17/24 05:38 Vitals Last Vital Signs Temp 97.9 F 03/19/24 09:03 Pulse 104 H 03/19/24 14:26 Resp 18 03/19/24 14:26 BP 90/51 03/19/24 14:26 Pulse Ox 99 03/19/24 14:26 O2 Del Method Room Air 03/19/24 08:42 O2 Flow Rate 2 03/18/24 01:30 Discharge Plan Discharge Patient Disposition: Home Condition: Stable Prescriptions: New pantoprazole 40 mg Tablet,Delayed Release (Dr/Ec) 40 mg PO DAILY 30 Days Qty: 30 0RF Continued pantoprazole 40 mg tablet,delayed release (DR/EC) 40 mg PO DAILY allopurinol 300 mg tablet 300 mg PO DAILY diazepam 2 mg tablet 2 mg PO DAILY PRN (Reason: Anxiety) colchicine 0.6 mg tablet 2 mg PO ONCE PRN (Reason: gout) atorvastatin 40 mg Tablet 40 mg PO BEDTIME 30 Days Qty: 30 0RF clopidogrel 75 mg Tablet 75 mg PO DAILY 30 Days Qty: 30 0RF aspirin 81 mg Tablet,Delayed Release (Dr/Ec) 81 mg PO DAILY 30 Days Qty: 30 0RF nitroglycerin 0.4 mg tablet, sublingual 0.4 mg sublingual Q5M PRN (Reason: Chest Pain) 30 Days Qty: 30 0RF Discontinued ciprofloxacin HCl [Cipro] 250 mg tablet 250 mg PO BID 4 Days Qty: 8 0RF metronidazole 500 mg tablet 500 mg PO BID 4 Days Qty: 8 0RF doxycycline hyclate 100 mg tablet 100 mg PO DAILY Discharge Orders: Discharge Order (Routine); Ordered 03/19/24 Ordered By: Chelsey Conde Referrals: Travis Moreno MD [Other] (chronic neuropathic pain - wants to switch from [facility] to Dr. Richardson We have notified your physician's clinic of the need for a follow-up appointment to be scheduled. If you have not heard from them within the next 2 business days, please call them directly We have notified your physician's clinic of the need for a follow-up appointment to be scheduled. If you have not heard from them within the next 2 business days, please call them directly. called this physican office ,will need referral , [facility] [Other] (chronic neuropathic pain, referral for pain management, opiate management intakes for new patients happens on Sunday thru ,but days to see doctor are on Sunday and Fridays, hours Sun 7am to 900 am , fridays 6am until noon for walkin will give information to patient ) [facility] [Other] (recurrent dysuria, retention We have notified your physician's clinic of the need for a follow-up appointment to be scheduled. If you have not heard from them within the next 2 business days, please call them directly. will need primary care physican to please place a referral for urology ) Bud Mcghee DO [Physician] - (chronic neuropathic pain, h/o spinal stenosis and hardware We have notified your physician's clinic of the need for a follow-up appointment to be scheduled. If you have not heard from them within the next 2 business days, please call them directly. ) Soto Escamilla MD [Primary Care Provider] - 03/26/24 9:00 am Discharge Diet: Cardiac Discharge Activity: Resume usual activity Patient Instructions: Pantoprazole (By mouth) (Protonix), Dilated Cardiomyopat hy (DC), Anxiety (DC), Fall Prevention (DC), Chest Pain Stoplight, Opioid Safety, Post Angiogram Home Care Instructions Discharge Attestations Time Spent in Discharge Care*: greater than 30 min Status at Discharge: Cognitive status at discharge: cognitively intact , Behavioral status at discharge: cooperative , Quality Metrics Clinical Quality Measures [ No reported AMI, CVA or VTE this stay] Coding Level of Care Code Acute Code for Chg Fwd Diagnoses Chest pain R07.9 Chest pain type: unspecified
== END 2024-03-19 16:08 | disposition home or self-care (01) | DRG 281 ==
LOC: ER 06:22 → ICU 11:08
PROVIDERS: Emergency Medicine; Internal Medicine; Internal Medicine Cardiovascular Disease; Nurse Practitioner Family; Admitting Provider Student in an Organized Health Care Education/Training Program; Emergency Provider Family Medicine; PCP Family Medicine; Visit Provider Student in an Organized Health Care Education/Training Program
PROC: B211YZZ Fluoroscopy of Multiple Coronary Arteries using Other Contrast (ICD-10-PCS; principal; 2024-03-18 12:00)
DX: R07.9 Chest pain, unspecified (principal); F31.32 Bipolar disorder, current episode depressed, moderate; I21.4 Non-ST elevation (NSTEMI) myocardial infarction; I50.20 Unspecified systolic (congestive) heart failure; I25.10 Atherosclerotic heart disease of native coronary artery without angina pectoris; I25.5 Ischemic cardiomyopathy; I11.0 Hypertensive heart disease with heart failure; G62.9 Polyneuropathy, unspecified; G43.709 Chronic migraine without aura, not intractable, without status migrainosus; F15.21 Other stimulant dependence, in remission; G89.29 Other chronic pain; M54.2 Cervicalgia; K21.9 Gastro-esophageal reflux disease without esophagitis; E78.5 Hyperlipidemia, unspecified; F12.20 Cannabis dependence, uncomplicated; F41.1 Generalized anxiety disorder; E89.2 Postprocedural hypoparathyroidism; M10.9 Gout, unspecified; Z79.82 Long term (current) use of aspirin; Z79.02 Long term (current) use of antithrombotics/antiplatelets; Z87.442 Personal history of urinary calculi; Z90.49 Acquired absence of other specified parts of digestive tract; Z98.1 Arthrodesis status; Z95.5 Presence of coronary angioplasty implant and graft; Z82.49 Family history of ischemic heart disease and other diseases of the circulatory system
CPT/HCPCS: 36415; 36569; 71045; 71275; 72040; 72100; 74177; 80053; 80306; 81003; 82550; 83690; 83735; 83880; 84484; 85025; 85610; 85730; 93005; 93308; 93926; 96365; 96366; 96367; 96374; 96375; 96376; 99152; 99291; 99292; C1769; C1887; C1894; J1160; J1171; J1200; J1644; J2250; J2270; J2405; J3010; J3490; J7030; Q9967

== ENCOUNTER → 2024-04-11 14:00 | Outpatient (BNVA) | payer MEDICAID, SELFPAY ==
[2024-03-13 13:17] VITALS: BP 106/69; BMI 29.4
== END ==
PROVIDERS: PCP Family Medicine; Visit Provider Specialist
DX: G43.711 Chronic migraine without aura, intractable, with status migrainosus (principal)
CPT/HCPCS: 64615; J0585

== ENCOUNTER 2024-05-03 18:11 | Emergency (ER) | payer MEDICAID, SELFPAY ==
[2024-05-03 18:15] VITALS: BP 137/98; PULSE 104; RESP 17; TEMP 36.5; O2SAT 98; BMI 29.0
--- NOTE | 2024-05-03 18:32 | ECG_ITS ---
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
--- NOTE | 2024-05-03 18:32 | XRR_ITS ---
PROCEDURE INFORMATION: Exam: XR Chest Exam date and time: 05/03/2024 7:15 PM Age: 53 years old Clinical indication: Chest pressure; Prior surgery; Surgery date: 6+ months; Surgery type: Cardiac stents; Patient HX: Chest pain; N/v; PT has on life vest-unable to remove alg TECHNIQUE: Imaging protocol: Radiologic exam of the chest. Views: 1 view. COMPARISON: CT angio chest w abd pel w con 03/17/2024 8:26 AM FINDINGS: Lungs: No pulmonary consolidation. Mild nonspecific interstitial prominence. Pleural spaces: No pleural effusion or pneumothorax. Heart/Mediastinum: Mild cardiomegaly. Bones/joints: No acute osseous abnormalities are seen. XR/XR chest 1V portable [id number] IMPRESSION: Mild nonspecific interstitial prominence. Chronic lung changes versus pulmonary edema versus atypical infection.
--- NOTE | 2024-05-03 18:43 | CTR_ITS ---
PROCEDURE INFORMATION: Exam: CT Head Without Contrast Exam date and time: 05/03/2024 7:08 PM Age: 53 years old Clinical indication: Altered mental status/memory loss; Patient HX: PT C/O generalized weakness with confusion. ; Additional info: AMS TECHNIQUE: Imaging protocol: Computed tomography of the head without contrast. Radiation optimization: All CT scans at this facility use at least one of these dose optimization techniques: automated exposure control; mA and/or kV adjustment per patient size (includes targeted exams where dose is matched to clinical indication); or iterative reconstruction. COMPARISON: MR head wo/w con [id number] 03/07/2023 9:08 AM RADIATION DOSE METRICS: Total DLP (mGy-cm): 1119.23 FINDINGS: Brain: No intracranial hemorrhage. No edema or mass effect. No significant deep white matter abnormality. Cerebral ventricles: Normal ventricles. Paranasal sinuses: The paranasal sinuses are clear. Mastoid air cells: The mastoid air cells are clear. Bones: No acute osseous abnormalities are seen. Soft tissues: The soft tissues are within normal limits. CT/CT head wo con* [id number] IMPRESSION: No acute intracranial pathology.
--- NOTE | 2024-05-03 18:48 | W.ED.CHESTPA ---
HPI - Chest Pain General: Chief Complaint: Chest Pain Stated Complaint: chest pain; n/v Time Seen by Provider: 05/03/24 18:22 Source: patient History of Present Illness: Patient is a 53-year-old male with a history of bipolar disorder and coronary artery disease who was admitted to the hospital about 1 month ago for chest pain and had clean coronaries at that time. He presents today by EMS with concern of chest pain, nausea, vomiting, and generalized weakness. He states he does not know when asked if he is used any illicit drugs recently. He denies any known fevers. He states that he is not thinking right . MD complaint: chest pain Associated symptoms: Reports nausea and vomiting Related Data Home Medications Medication Instructions Recorded Confirmed pantoprazole 40 mg tablet,delayed 40 mg PO DAILY 07/17/21 04/11/24 release allopurinol 300 mg tablet 300 mg PO DAILY 03/04/24 04/11/24 colchicine 0.6 mg tablet 2 mg PO ONCE PRN gout 03/04/24 04/11/24 Previous Rx's Medication Instructions Recorded nitroglycerin 0.4 mg sublingual 0.4 mg sublingual Q5M PRN Chest 03/12/24 tablet Pain 30 days #30 tabs diazepam 10 mg tablet 10 mg PO DAILY PRN Anxiety #2 tabs 04/11/24 oseltamivir 75 mg capsule (Tamiflu) 75 mg PO BID 5 days #10 caps 05/03/24 Allergies Allergy/AdvReac Type Severity Reaction Status Date / Time sulfamethoxazole Allergy SWOLLEN Verified 04/11/24 14:09 [From ] TONGUE trimethoprim [From ] Allergy SWOLLEN Verified 04/11/24 14:09 TONGUE Review of Systems Const: Reports: body aches, fatigue and malaise Card: Reports: chest pain GI: Reports: nausea and vomiting [facility] ED PFSH: Medical History Anesthesia complication prolonged sedation after anesthesia 06/26/2022 requiring ICU monitoring but no other intervention, not responsive to narcan; took 5-6 hours to wake up after surgery. Only thing identified is he had not slept for several days prior to surgery. Chronic migraine Depression Prediabetes History of narcotic use with prior pain treatment contract, not using regular narcotic pain control as of 06/26/2022 History of psychiatric care Acute encephalopathy Hypertension GERD (gastroesophageal reflux disease) Hyperlipidemia History of electroencephalogram 11/04/20 This was a normal routine EEG, awake and drowsy and asleep, with no behavioral or electrographic epileptiform activity. This patient was excessively sleepy and was not sleep deprived. Consider a sleep disorder if clinically appropriate. Bipolar disorder Gout [place] tick fever History of Holter monitoring 09/2019 baseline sinus tachycardia with heart rate of 135 bpm, no pauses or bradycardia, diminished heart rate variability 12/2019 baseline sinus rhythm at 94 bpm, symptomatic sinus tachycardia with heart rate 72-126 bpm Psychiatric care Hyperparathyroidism s/p partial parathyroidectomy Bleeding per rectum Had anoscope done by Dr Garcia 08/30/2020 with no fistulae, sinuses, induration, abscess formation or fissures = normal findings Other stimulant dependence, in remission prior methamphetamine use Bilateral renal stones Has seen Dr Bhatti in past, non-obstructive, remote lithotripsy, otherwise monitored for symptoms Cervical disc disease With cervical radiculopathy, spondylosis, spondylosis with myelopathy B12 deficiency 09/2019 Generalized anxiety disorder Cannabis dependence, uncomplicated history, unknown if still using as of 06/26/2022 Carpal tunnel syndrome, left upper limb by nerve conduction study performed 05/2019, has not had surgery as of 06/26/2022 Surgical History Status post cervical discectomy 06/26/2022 Dr Mcghee anterior cervical discectomy C4/C5 with insertion of cage, instrumentation with anterior plate C4-C5, with C4-C7 posterior fusion and instrumentation, use of allograft History of esophagogastroduodenoscopy (EGD) 2015 History of colonoscopy 2015 S/P extracorporeal shock wave therapy History of parathyroidectomy partial, performed by Dr Henderson, never followed-up after surgery History of lumbar laminectomy 09/01/2020 Dr Mcghee L4/5 with bilateral partial facetectomy History of neck surgery 03/24/2020 Dr Mcghee Anterior discectomy with insertion of cage/instrumentation/use of allograft and anterior plate at C5/6 & C6/7 History of cholecystectomy History of knee surgery Left knee arthroscopy 08/[address] Campbell, had MRSA Family History Brother Hypertension Valvular heart disease Grandfather Hypertension History of open heart surgery Father History of open heart surgery Social History Smoking and tobacco/nicotine status: current every day tobacco/nicotine user cigarettes Years cigarettes smoked: 35 Alcohol intake: current Alcohol intake frequency: few times a week Alcohol type: beer Substance/Drug Use: former Household members: other Details: lives with mother who is a former [employer] nurse Marital status: Current occupational status: unemployed and disabled Physical Exam Const: COMMON NORMALS: no acute distress, average body habitus, alert and well nourished GENERAL APPEARANCE: cooperative ORIENTATION/CONSCIOUSNESS: Yes awake OTHER: Chronically ill-appearing 53-year-old gentleman who is somewhat disheveled sitting up on the stretcher who appears uncomfortable HENMT: COMMON NORMALS: normocephalic and atraumatic HEAD & SCALP: normocephalic and atraumatic Eye: COMMON NORMALS: conjunctivae normal CONJUNCTIVA: Yes conjunctivae normal Neck/C-Spine: GENERAL: Yes normal visual inspection Resp: COMMON NORMALS: normal respiratory effort, No retractions and No use of accessory muscles Cardio: COMMON NORMALS: regular rhythm and Peripheral pulses 2+ throughout RHYTHM: regular rhythm PERIPHERAL PULSES: Peripheral pulses 2+ throughout GI: COMMON NORMALS: Soft to palpation and non-tender PALPATION: Yes Soft to palpation Extremity: COMMON NORMALS: full ROM and no pedal edema Neuro: COMMON NORMALS: no focal motor deficits SENSORIUM/ORIENTATION: Yes alert Skin: COMMON NORMALS: no rashes or lesions noted GENERAL SKIN EXAM: no rashes or lesions noted Course Vital Signs: Vital signs: Vital Signs Temperature 97.7 F 05/03/24 18:15 Pulse Rate 98 05/03/24 20:00 Respiratory Rate 16 05/03/24 20:00 Blood Pressure 123/94 05/03/24 20:00 Pulse Oximetry 98 05/03/24 20:00 Oxygen Delivery Me thod Room Air 05/03/24 20:00 MDM - Chest Pain Medical Decision Making Patient is a chronically ill 53-year-old gentleman who presents with generally feeling unwell and some chest pain. He has a history of coronary disease and congestive heart failure. He is somewhat of a poor historian. His EKG is sinus tachycardia. Rate of 104 bpm. Q waves in the septal leads. No ischemic ST elevation or depressions. Chest x-ray shows some mild interstitial prominence consistent with some mild pulmonary edema. Patient was given a dose of IV Lasix for some diuresis. He is positive for influenza which seems most consistent with his acute complaints. Labs are otherwise stable. Troponins are stable. Patient was updated on findings and risk and benefits of admission versus discharge. Is felt reasonable for discharge with Tamiflu which she is in agreement with. Return precautions were provided. Lab Data I reviewed the patient's lab results. 05/03/24 18:10 05/03/24 18:10 Radiology Impressions Chest X-Ray 05/03/24 18:32 IMPRESSION: Mild nonspecific interstitial prominence. Chronic lung changes versus pulmonary edema versus atypical infection. Head CT 05/03/24 18:43 IMPRESSION: No acute intracranial pathology. Laboratory Results WBC 7.12 10^3/uL (3.29-11.43) 05/03/24 18:10 RBC 4.36 10^6/uL (3.85-5.65) 05/03/24 18:10 Hgb 11.60 g/dL (11.27-16.99) 05/03/24 18:10 Hct 39.1 % (37-53) 05/03/24 18:10 MCV 89.7 fl (82-101) 05/03/24 18:10 MCH 26.6 pg (27-33) L 05/03/24 18:10 MCHC 29.7 g/dL (30-55) L 05/03/24 18:10 RDW 17.5 % (12.1-15.1) H 05/03/24 18:10 Plt Count 277 10^3/cmm (157-399) 05/03/24 18:10 MPV 11.4 fL (7.4-10.4) H 05/03/24 18:10 Neut % (Auto) 39.6 % 05/03/24 18:10 Lymph % (Auto) 51.3 % 05/03/24 18:10 [place] % (Auto) 5.6 % 05/03/24 18:10 Eos % (Auto) 1.4 % 05/03/24 18:10 Baso % (Auto) 0.4 % 05/03/24 18:10 Neut # (Auto) 2.82 10^3/uL (1.8-7.7) 05/03/24 18:10 Lymph # (Auto) 3.7 10^3/uL (0.8-4.8) 05/03/24 18:10 [place] # (Auto) 0.4 10^3/uL (0.2-0.9) 05/03/24 18:10 Eos # (Auto) 0.1 10^3/uL (0.0-0.8) 05/03/24 18:10 Baso # (Auto) 0.0 10^3/uL (0.0-0.1) 05/03/24 18:10 Nucleated RBC % (auto) 0 % 05/03/24 18:10 Nucleated RBCs # 0.0 /100WBC 05/03/24 18:10 Hypochromasia 1+ H 05/03/24 18:10 Target Cells 1+ H 05/03/24 18:10 Sodium 138 mmol/L (136-145) 05/03/24 18:10 Potassium 3.9 mmol/L (3.5-5.1) 05/03/24 18:10 Chloride 101 mmol/L (98-107) 05/03/24 18:10 Carbon Dioxide 25 mmol/L (22-29) 05/03/24 18:10 Anion Gap 15.9 (5-19) 05/03/24 18:10 BUN 9 mg/dL (6-20) 05/03/24 18:10 Creatinine 1.1 mg/dL (0.7-1.2) 05/03/24 18:10 GFR Calculation 69.8 mL/min (90-130) L 05/03/24 18:10 Glucose 109 mg/dL (65-115) 05/03/24 18:10 Calculated Osmolality 285 mOsm/kg (285-295) 05/03/24 18:10 Calcium 8.8 mg/dL (8.5-10.5) 05/03/24 18:10 Total Bilirubin 0.7 mg/dL (0.15-1.2) 05/03/24 18:10 AST 32 U/L (0-40) 05/03/24 18:10 ALT 19 U/L (0-41) 05/03/24 18:10 Alkaline Phosphatase 125 U/L (40-130) 05/03/24 18:10 Troponin T Baseline 25 ng/L (0-15) H 05/03/24 18:10 Troponin T 120 Minute 22.60 ng/L (0-15) H 05/03/24 19:52 Delta Troponin T -2.40 ABS# (0-10) L 05/03/24 19:52 NT-Pro-B Natriuret Pep 7561 pg/mL (0-125) H 05/03/24 18:10 Total Protein 6.6 g/dL (6.6-8.7) 05/03/24 18:10 Albumin 3.7 g/dL (3.5-5.2) 05/03/24 18:10 Globulin 2.9 g/dL (1.3-4.6) 05/03/24 18:10 Lipase 127 U/L (13-60) H 05/03/24 18:10 Urine Opiates Screen Negative ng/mL (Negative) 05/03/24 19:06 Ur Barbiturates Screen Negative ng/mL (Negative) 05/03/24 19:06 Ur Phencyclidine Scrn Negative ng/mL (Negative) 05/03/24 19:06 Ur Amphetamines Screen Negative ng/mL (Negative) 05/03/24 19:06 U Benzodiazepines Scrn Positive ng/mL (Negative) H 05/03/24 19:06 Urine Cocaine Screen Negative ng/mL (Negative) 05/03/24 19:06 U Marijuana (THC) Screen Negative ng/mL (Negative) 05/03/24 19:06 Coronavirus (PCR) Negative (Negative) 05/03/24 18:56 Influenza A (PCR) Positive (Negative) 05/03/24 18:56 Influenza Type B (PCR) Negative (Negative) 05/03/24 18:56 RSV (PCR) Negative (Negative) 05/03/24 18:56 All radiology interpretation(s) finalized by discharge Discharge Plan Discharge Patient Disposition: Home Clinical Impression: Influenza A Condition: Stable Prescriptions: New oseltamivir [Tamiflu] 75 mg capsule 75 mg PO BID 5 Days Qty: 10 0RF No Action diazepam 10 mg tablet 10 mg PO DAILY PRN (Reason: Anxiety) Qty: 2 5RF Rx Instructions: Take 1 or 2 prior to procedure pantoprazole 40 mg tablet,delayed release (DR/EC) 40 mg PO DAILY allopurinol 300 mg tablet 300 mg PO DAILY colchicine 0.6 mg tablet 2 mg PO ONCE PRN (Reason: gout) nitroglycerin 0.4 mg tablet, sublingual 0.4 mg sublingual Q5M PRN (Reason: Chest Pain) 30 Days Qty: 30 0RF Discharge Orders: Discharge ED (Routine); Ordered 05/03/24 Ordered By: Travis Verduzco Referrals: Soto Escamilla MD [Primary Care Provider] - Discharge Diet: Cardiac Discharge Activity: Increase activity as tolerated Patient Instructions: Opioid Safety, Pain Management, Influenza (DC) Activity Restrictions/Additional Instructions: Take all medication as directed. Drink plenty of fluids to stay hydrated. Follow-up with your PCP for recheck next week. Return to the ER for any new or worsening symptoms or any other concerns. Coding Level of Care Code ED Dress Operator for Caty Juarez
[2024-05-03 18:53] VITALS: BP 121/87; PULSE 107; RESP 16; O2SAT 98
[2024-05-03 19:11] LABS: Basophils % 0.4 %; Eosinophils # 0.1 10^3/uL (0.0-0.8); Eosinophils % 1.4 %; Hematocrit 39.1 % (37-53); Lymphocytes # 3.7 10^3/uL (0.8-4.8); Lymphocytes % 51.3 %; Mean Corpuscular HGB Conc 29.7 g/dL (30-55); Mean Corpuscular Hemoglobin 26.6 pg (27-33); Mean Corpuscular Volume 89.7 fl (82-101); Mean Platelet Volume 11.4 fL (7.4-10.4); Monocytes # 0.4 10^3/uL (0.2-0.9); Monocytes % 5.6 %; Neutrophils # 2.82 10^3/uL (1.8-7.7); Neutrophils % 39.6 %; Nucleated Red Blood Cells % 0 %; Platelet Count 277 10^3/cmm (157-399); Red Blood Count 4.36 10^6/uL (3.85-5.65); Red Cell Distribution Width 17.5 % (12.1-15.1); White Blood Count 7.12 10^3/uL (3.29-11.43)
[2024-05-03 19:27] LABS: Amphetamines Screen Urine Negative (Negative); Barbiturates Screen Urine Negative (Negative); Benzodiazepines Screen Urine Positive (Negative); Cocaine Screen Urine Negative (Negative); Opiate Screen Urine Negative (Negative); PCP Screen Urine Negative (Negative); THC Screen Urine Negative (Negative)
[2024-05-03 19:32] LABS: Troponin(5th) Baseline 25 ng/L (0-15)
[2024-05-03 19:33] LABS: Add RBC Morph Yes; Hypochromasia 1+; RBC Morph Comp No; Slide Review Slide Review Perform; Target Cells 1+
[2024-05-03 19:39] LABS: Alanine Aminotransferase 19 U/L (0-41); Albumin Level 3.7 g/dL (3.5-5.2); Alkaline Phosphatase 125 U/L (40-130); Anion Gap 15.9 (5-19); Aspartate Amino Transferase 32 U/L (0-40); Blood Urea Nitrogen 9 mg/dL (6-20); Calcium 8.8 mg/dL (8.5-10.5); Carbon Dioxide 25 mmol/L (22-29); Chloride 101 mmol/L (98-107); Creatinine Clr Calc Pharmacy 77.0295; Globulin 2.9 g/dL (1.3-4.6); Glomerular Filtration Rate 69.8 mL/min (90-130); Glucose 109 mg/dL (65-115); Lipase 127 U/L (13-60); NT Pro B Type Natriuretic Pept 7561 pg/mL (0-125); Osmolality Calculated 285 mOsm/kg (285-295); Potassium 3.9 mmol/L (3.5-5.1); Sodium 138 mmol/L (136-145); Total Bilirubin 0.7 mg/dL (0.15-1.2); Total Protein 6.6 g/dL (6.6-8.7)
[2024-05-03 19:40] VITALS: BP 124/90; PULSE 101; RESP 18; O2SAT 99
[2024-05-03 19:55] LABS: Covid PCR NEGATIVE (Negative); Influenza A POSITIVE (Negative); Influenza B NEGATIVE (Negative); Respiratory Syncytial Virus Ce NEGATIVE (Negative)
[2024-05-03 20:00] VITALS: BP 123/94; PULSE 98; RESP 16; O2SAT 98
[2024-05-03] MEDS: FUROsemide 10 mg/mL SDV 10mL 60 MG IVP (21:02)
[2024-05-03 21:13] VITALS: BP 122/91; PULSE 99; RESP 18; O2SAT 97
== END 2024-05-03 21:12 | disposition home or self-care (01) ==
PROVIDERS: Emergency Provider Student in an Organized Health Care Education/Training Program; PCP Family Medicine
DX: J10.1 Influenza due to other identified influenza virus with other respiratory manifestations (principal); Z11.52 Encounter for screening for COVID-19; F17.210 Nicotine dependence, cigarettes, uncomplicated; E78.5 Hyperlipidemia, unspecified; I10 Essential (primary) hypertension; I25.10 Atherosclerotic heart disease of native coronary artery without angina pectoris
CPT/HCPCS: 36415; 70450; 71045; 80053; 80306; 83690; 83880; 84484; 85025; 87637; 93005; 96374; 99285; J1940

== ENCOUNTER 2024-05-08 01:06 | Emergency (ER) | payer MEDICAID, SELFPAY ==
[2024-05-08 01:06] VITALS: BP 109/88; PULSE 119; RESP 26; TEMP 36.5; O2SAT 95; BMI 29.0
--- NOTE | 2024-05-08 01:13 | XRR_ITS ---
PROCEDURE INFORMATION: Exam: XR Chest Exam date and time: 05/08/2024 2:08 AM Age: 53 years old Clinical indication: Pain; Chest pressure; Additional info: Chest pain, flu positive TECHNIQUE: Imaging protocol: Radiologic exam of the chest. Views: 1 view. COMPARISON: CR (CHEST, ) 05/03/2024 7:15 PM FINDINGS: Tubes, catheters and devices: Electronic device overlies the chest, limiting exam. Lungs: Mild pulmonary edema. Pleural spaces: Unremarkable. No pleural effusion. No pneumothorax. Heart/Mediastinum: Mildly enlarged pericardial silhouette. Bones/joints: Partially visualized cervical spine hardware. XR/XR chest 1V portable [id number] IMPRESSION: 1. Mild pulmonary edema. 2. Mildly enlarged pericardial silhouette.
--- NOTE | 2024-05-08 01:14 | ECG_ITS ---
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 Measurements Intervals [place] Rate: 119 P: 59 AR: 156 QRS: -14 QRSD: 90 T: 112 QT: 339 QTc: 478 Interpretive Statements SINUS TACHYCARDIA LOW QRS VOLTAGE IN PRECORDIAL LEADS [QRS DEFLECTION < 1.0 mV IN CHEST LEADS] SEPTAL MYOCARDIAL INFARCTION , OF INDETERMINATE AGE [40+ ms Q WAVE IN V1/V2] Compared to ECG 05/03/2024 18:18:36 Low QRS voltage now present Myocardial infarct finding still present Electronically Signed On 05-10-2024 13:38:43 TIN CONTAINER STRAIGHTENER by Pranay Alcocer M.D. [email or web address]
--- NOTE | 2024-05-08 01:15 | ED_ITS ---
HPI - Chest Pain 2 General: Chief Complaint: Shortness of Breath/Dyspnea Stated Complaint: cp Time Seen by Provider: 05/08/24 01:12 History of Present Illness: Patient presents to the ER with complaints of chest pain shortness of breath. Patient was diagnosed with the flu over the weekend. EMS stated the patient got anxious hyperventilating passed out on route. Patient still hyperventilating and appears anxious upon arrival. Patient denies any chest pain at present. Patient's heart rates 119 respirations about 26 times a minute patient's O2 sat is 95% room air. Related Data Home Medications Medication Instructions Recorded Confirmed pantoprazole 40 mg tablet,delayed 40 mg PO DAILY 07/17/21 04/11/24 release allopurinol 300 mg tablet 300 mg PO DAILY 03/04/24 04/11/24 colchicine 0.6 mg tablet 2 mg PO ONCE PRN gout 03/04/24 04/11/24 Previous Rx's Medication Instructions Recorded nitroglycerin 0.4 mg sublingual 0.4 mg sublingual Q5M PRN Chest 03/12/24 tablet Pain 30 days #30 tabs diazepam 10 mg tablet 10 mg PO DAILY PRN Anxiety #2 tabs 04/11/24 Allergies Allergy/AdvReac Type Severity Reaction Status Date / Time sulfamethoxazole Allergy SWOLLEN Verified 04/11/24 14:09 [From ] TONGUE trimethoprim [From ] Allergy SWOLLEN Verified 04/11/24 14:09 TONGUE Review of Systems 2 General: Reports: 10 or more systems reviewed and unremarkable except in HPI and below PFSH ED 2 PFSH: Medical History Anesthesia complication prolonged sedation after anesthesia 06/26/2022 requiring ICU monitoring but no other intervention, not responsive to narcan; took 5-6 hours to wake up after surgery. Only thing identified is he had not slept for several days prior to surgery. Chronic migraine Depression Prediabetes History of narcotic use with prior pain treatment contract, not using regular narcotic pain control as of 06/26/2022 History of psychiatric care Acute encephalopathy Hypertension GERD (gastroesophageal reflux disease) Hyperlipidemia History of electroencephalogram 11/04/20 This was a normal routine EEG, awake and drowsy and asleep, with no behavioral or electrographic epileptiform activity. This patient was excessively sleepy and was not sleep deprived. Consider a sleep disorder if clinically appropriate. Bipolar disorder Gout [place] tick fever History of Holter monitoring 09/2019 baseline sinus tachycardia with heart rate of 135 bpm, no pauses or bradycardia, diminished heart rate variability 12/2019 baseline sinus rhythm at 94 bpm, symptomatic sinus tachycardia with heart rate 72-126 bpm Psychiatric care Hyperparathyroidism s/p partial parathyroidectomy Bleeding per rectum Had anoscope done by Dr Garcia 08/30/2020 with no fistulae, sinuses, induration, abscess formation or fissures = normal findings Other stimulant dependence, in remission prior methamphetamine use Bilateral renal stones Has seen Dr Bhatti in past, non-obstructive, remote lithotripsy, otherwise monitored for symptoms Cervical disc disease With cervical radiculopathy, spondylosis, spondylosis with myelopathy B12 deficiency 09/2019 Generalized anxiety disorder Cannabis dependence, uncomplicated history, unknown if still using as of 06/26/2022 Carpal tunnel syndrome, left upper limb by nerve conduction study performed 05/2019, has not had surgery as of 06/26/2022 Surgical History Status post cervical discectomy 06/26/2022 Dr Mcghee anterior cervical discectomy C4/C5 with insertion of cage, instrumentation with anterior plate C4-C5, with C4-C7 posterior fusion and instrumentation, use of allograft History of esophagogastroduodenoscopy (EGD) 2015 History of colonoscopy 2016 S/P extracorporeal shock wave therapy History of parathyroidectomy partial, performed by Dr Henderson, never followed-up after surgery History of lumbar laminectomy 09/01/2020 Dr Mcghee L4/5 with bilateral partial facetectomy History of neck surgery 03/24/2020 Dr Mcghee Anterior discectomy with insertion of cage/instrumentation/use of allograft and anterior plate at C5/6 & C6/7 History of cholecystectomy History of knee surgery Left knee arthroscopy 08/[address] Campbell, had MRSA Family History Brother Hypertension Valvular heart disease Grandfather Hypertension History of open heart surgery Father History of open heart surgery Social History Smoking and tobacco/nicotine status: current every day tobacco/nicotine user cigarettes Years cigarettes smoked: 35 Alcohol intake: current Alcohol intake frequency: few times a week Alcohol type: beer Substance/Drug Use: former Household members: other Details: lives with mother who is a former [employer] [facility] [employer] nurse Marital status: Current occupational status: unemployed and disabled Physical Exam 2 Const: COMMON NORMALS: no acute distress, average body habitus, patient oriented x3, no limitations, healthy appearing, alert and well nourished HENMT: COMMON NORMALS: normocephalic, atraumatic, hearing grossly normal bilaterally, external ears normal, Normal external nose present and moist oral mucous membranes HEAD & SCALP: normocephalic and atraumatic NOSE: Normal external nose present EXTERNAL EAR: Yes external ears normal Neck/C-Spine: COMMON NORMALS: full ROM, no lymphadenopathy, supple, no meningeal signs and no JVD Chest: COMMONS NORMALS: normal inspection of the chest and normal palpation of entire chest wall Resp: COMMON NORMALS: normal respiratory effort, No retractions, No use of accessory muscles and clear to auscultation bilaterally AUSCULTATION: clear to auscultation bilaterally Cardio: COMMON NORMALS: no JVD, regular rhythm, S1 normal heart sound present, S2 normal heart sound present, No gallops present (Cardio), No clicks present (Cardio), No murmurs present (Cardio) and No rub (Cardio); negative for regular rate (Mild tachycardia) RATE: abnormal rate (Mild tachycardia) RHYTHM: regular rhythm HEART SOUNDS: S1 normal heart sound present and S2 normal heart sound present GI: COMMON NORMALS: Normal to inspection, nondistended, normoactive bowel sounds present, Soft to palpation, non-tender, No hepatosplenomegaly present and no masses PALPATION: Yes Soft to palpation and Yes No hepatosplenomegaly present Neuro: COMMON NORMALS: patient oriented x3 SENSORIUM/ORIENTATION: Yes alert MENINGEAL SIGNS: Yes no meningeal signs Course 2 Vital Signs: Vital signs: Vital Signs Temperature 97.7 F 05/08/24 01:06 Pulse Rate 119 H 05/08/24 01:51 Respiratory Rate 30 H 05/08/24 01:51 Blood Pressure 125/90 05/08/24 01:51 Pulse Oximetry 92 05/08/24 01:51 Oxygen Delivery Me thod Room Air 05/08/24 01:06 MDM - Chest Pain Medical Decision Making Lab work was reviewed with serial EKGs, serial cardiac enzymes, chest x-ray, physical exam, all which essentially benign for first chest x-ray showed mild pulmonary edema mild encouraged. Cardiac silhouette. Patient stay tachycardic and tachypneic. Review of his multiple former times being here he is consistent every single time with tachycardia and tachypnea. These results were discussed with the patient. Patient be discharged home. Medical Records I reviewed the patient's medical records. Lab Data I reviewed the patient's lab results. 05/08/24 01:00 05/08/24 01:00 Radiology Impressions Chest X-Ray 05/08/24 01:13 IMPRESSION: 1. Mild pulmonary edema. 2. Mildly enlarged pericardial silhouette. Laboratory Results WBC 8.32 10^3/uL (3.29-11.43) 05/08/24 01:00 RBC 4.03 10^6/uL (3.85-5.65) 05/08/24 01:00 Hgb 10.70 g/dL (11.27-16.99) L 05/08/24 01:00 Hct 35.7 % (37-53) L 05/08/24 01:00 MCV 88.6 fl (82-101) 05/08/24 01:00 MCH 26.6 pg (27-33) L 05/08/24 01:00 MCHC 30.0 g/dL (30-55) 05/08/24 01:00 RDW 17.2 % (12.1-15.1) H 05/08/24 01:00 Plt Count 426 10^3/cmm (157-399) H 05/08/24 01:00 MPV 10.1 fL (7.4-10.4) 05/08/24 01:00 Neut % (Auto) 66.5 % 05/08/24 01:00 Lymph % (Auto) 25.8 % 05/08/24 01:00 [place] % (Auto) 6.1 % 05/08/24 01:00 Eos % (Auto) 1.0 % 05/08/24 01:00 Baso % (Auto) 0.1 % 05/08/24 01:00 Neut # (Auto) 5.53 10^3/uL (1.8-7.7) 05/08/24 01:00 Lymph # (Auto) 2.2 10^3/uL (0.8-4.8) 05/08/24 01:00 [place] # (Auto) 0.5 10^3/uL (0.2-0.9) 05/08/24 01:00 Eos # (Auto) 0.1 10^3/uL (0.0-0.8) 05/08/24 01:00 Baso # (Auto) 0.0 10^3/uL (0.0-0.1) 05/08/24 01:00 Nucleated RBC % (auto) 0 % 05/08/24 01:00 Nucleated RBCs # 0.0 /100WBC 05/08/24 01:00 Sodium 139 mmol/L (136-145) 05/08/24 01:00 Potassium 3.6 mmol/L (3.5-5.1) 05/08/24 01:00 Chloride 100 mmol/L (98-107) 05/08/24 01:00 Carbon Dioxide 28 mmol/L (22-29) 05/08/24 01:00 Anion Gap 14.6 (5-19) 05/08/24 01:00 BUN 7 mg/dL (6-20) 05/08/24 01:00 Creatinine 1.1 mg/dL (0.7-1.2) 05/08/24 01:00 GFR Calculation 69.8 mL/min (90-130) L 05/08/24 01:00 Glucose 141 mg/dL (65-115) H 05/08/24 01:00 Calculated Osmolality 288 mOsm/kg (285-295) 05/08/24 01:00 Calcium 9.0 mg/dL (8.5-10.5) 05/08/24 01:00 Total Bilirubin 0.7 mg/dL (0.15-1.2) 05/08/24 01:00 AST 15 U/L (0-40) 05/08/24 01:00 ALT 11 U/L (0-41) 05/08/24 01:00 Alkaline Phosphatase 128 U/L (40-130) 05/08/24 01:00 Troponin T Baseline 29 ng/L (0-15) H 05/08/24 01:00 Troponin T 120 Minute 25.92 ng/L (0-15) H 05/08/24 02:56 Delta Troponin T -3.08 ABS# (0-10) L 05/08/24 02:56 Total Protein 7.3 g/dL (6.6-8.7) 05/08/24 01:00 Albumin 3.7 g/dL (3.5-5.2) 05/08/24 01:00 Globulin 3.6 g/dL (1.3-4.6) 05/08/24 01:00 All radiology interpretation(s) finalized by discharge Discharge Plan Discharge Patient Disposition: Home Clinical Impression: Influenza Chest pain Qualifiers: Chest pain type: unspecified Qualified Code(s): R07.9 - Chest pain, unspecified Condition: Stable Prescriptions: No Action diazepam 10 mg tablet 10 mg PO DAILY PRN (Reason: Anxiety) Qty: 2 5RF Rx Instructions: Take 1 or 2 prior to procedure pantoprazole 40 mg tablet,delayed release (DR/EC) 40 mg PO DAILY allopurinol 300 mg tablet 300 mg PO DAILY colchicine 0.6 mg tablet 2 mg PO ONCE PRN (Reason: gout) nitroglycerin 0.4 mg tablet, sublingual 0.4 mg sublingual Q5M PRN (Reason: Chest Pain) 30 Days Qty: 30 0RF Discharge Orders: Discharge ED (Routine); Ordered 05/08/24 Ordered By: Sandor Cordero Referrals: Soto Escamilla MD [Primary Care Provider] - 1 week Patient Instructions: Influenza (DC), Chest Pain (ED) Activity Restrictions/Additional Instructions: Thank you for choosing [facility] for your healthcare needs today. Please realize that you were seen in the emergency department and that we are providing you with an emergency medical screening exam and this may not be a complete and all exclusive of all testing and/or medical workup we may need to determine your element or severity of your illness. It is very important that you follow-up as instructed with your primary care provider or specialist for the additional evaluation and to discuss your medical treatment plan. You may return to the emergency department should you have concerns or if your condition changes or worsens in any way. Coding Level of Care Code ED Shelter Director for Caty Juarez
[2024-05-08 01:22] LABS: Basophils % 0.1 %; Eosinophils # 0.1 10^3/uL (0.0-0.8); Hematocrit 35.7 % (37-53); Lymphocytes # 2.2 10^3/uL (0.8-4.8); Lymphocytes % 25.8 %; Mean Corpuscular Hemoglobin 26.6 pg (27-33); Mean Corpuscular Volume 88.6 fl (82-101); Mean Platelet Volume 10.1 fL (7.4-10.4); Monocytes # 0.5 10^3/uL (0.2-0.9); Monocytes % 6.1 %; Neutrophils # 5.53 10^3/uL (1.8-7.7); Neutrophils % 66.5 %; Nucleated Red Blood Cells % 0 %; Platelet Count 426 10^3/cmm (157-399); Red Blood Count 4.03 10^6/uL (3.85-5.65); Red Cell Distribution Width 17.2 % (12.1-15.1); White Blood Count 8.32 10^3/uL (3.29-11.43)
[2024-05-08 01:43] LABS: Troponin(5th) Baseline 29 ng/L (0-15)
[2024-05-08 01:45] LABS: Alanine Aminotransferase 11 U/L (0-41); Albumin Level 3.7 g/dL (3.5-5.2); Alkaline Phosphatase 128 U/L (40-130); Anion Gap 14.6 (5-19); Aspartate Amino Transferase 15 U/L (0-40); Blood Urea Nitrogen 7 mg/dL (6-20); Carbon Dioxide 28 mmol/L (22-29); Chloride 100 mmol/L (98-107); Creatinine Clr Calc Pharmacy 77.0295; Globulin 3.6 g/dL (1.3-4.6); Glomerular Filtration Rate 69.8 mL/min (90-130); Glucose 141 mg/dL (65-115); Osmolality Calculated 288 mOsm/kg (285-295); Potassium 3.6 mmol/L (3.5-5.1); Sodium 139 mmol/L (136-145); Total Bilirubin 0.7 mg/dL (0.15-1.2); Total Protein 7.3 g/dL (6.6-8.7)
[2024-05-08 01:51] VITALS: BP 125/90; PULSE 119; RESP 30; O2SAT 92
[2024-05-08 02:16] VITALS: PULSE 114; RESP 15; O2SAT 93
[2024-05-08 03:16] VITALS: PULSE 115; RESP 30; O2SAT 97
--- NOTE | 2024-05-08 03:19 | ECG_ITS ---
[employer] Test Date: 2024-05-08 Pat Name: Vivek Corral Department: Room: Gender: Male Can Crimper: : 1970 Requested By: Sandor Cordero Order Number: [id number] Clemencia MD: Pranay Alcocer M.D. Measurements Intervals [place] Rate: 114 P: 72 MA: 168 QRS: -4 QRSD: 96 T: 93 QT: 346 QTc: 478 Interpretive Statements SINUS TACHYCARDIA LOW QRS VOLTAGE IN PRECORDIAL LEADS [QRS DEFLECTION < 1.0 mV IN CHEST LEADS] SEPTAL MYOCARDIAL INFARCTION , OF INDETERMINATE AGE [40+ ms Q WAVE IN V1/V2] Compared to ECG 05/08/2024 01:14:57 No significant changes Electronically Signed On 05-08-2024 10:34:36 FOUNDATION RELATIONS MANAGER by Pranay Alcocer M.D. [id number]
[2024-05-08 03:21] LABS: Troponin 5 2HR 25.92 ng/L (0-15)
[2024-05-08 03:25] LABS: Troponin 5 2HR Delta -3.08 ABS# (0-10)
[2024-05-08] MEDS: ketorolac 30 mg/mL INJ IVP (03:36)
[2024-05-08 03:46] VITALS: BP 129/94; PULSE 117; RESP 17; O2SAT 96
[2024-05-08 06:03] VITALS: PULSE 116; O2SAT 96
== END 2024-05-08 06:07 | disposition home or self-care (01) ==
PROVIDERS: Emergency Provider Emergency Medicine; PCP Family Medicine
DX: J11.1 Influenza due to unidentified influenza virus with other respiratory manifestations (principal); R07.9 Chest pain, unspecified; F17.210 Nicotine dependence, cigarettes, uncomplicated; E78.5 Hyperlipidemia, unspecified; I10 Essential (primary) hypertension
CPT/HCPCS: 36415; 71045; 80053; 84484; 85025; 93005; 96374; 99285; J1885

== ENCOUNTER → 2024-05-15 13:09 | Outpatient (BNVA) | payer MEDICAID, SELFPAY ==
[2024-05-15 13:16] VITALS: BP 106/69; BMI 29.4
== END ==
PROVIDERS: PCP Family Medicine; Visit Provider Internal Medicine
DX: I25.5 Ischemic cardiomyopathy (principal); I25.10 Atherosclerotic heart disease of native coronary artery without angina pectoris; I42.8 Other cardiomyopathies; I10 Essential (primary) hypertension; F17.210 Nicotine dependence, cigarettes, uncomplicated
CPT/HCPCS: 36415; 80048; 83880; 85025; 99214

== ENCOUNTER 2024-05-22 13:28 | Inpatient (IN) | payer MEDICAID, SELFPAY ==
[2024-05-22] VITALS (48 sets, daily range): BP systolic 78–132; BP diastolic 56–86; PULSE 96–112; RESP 16–33; TEMP 36.3–36.5; O2SAT 87–97; BMI 28.7
--- NOTE | 2024-05-22 13:18 | ECG_ITS ---
[employer] Test Date: 2024-05-22 Pat Name: Vivek Corral Department: Room: [facility] Gender: Male Ssis Architect: : 1970 Requested By: Nathaniel Covington Order Number: [id number] Clemencia MD: HAYDEE ROGEL Measurements Intervals [place] Rate: 115 P: 52 RI: 132 QRS: -17 QRSD: 85 T: 124 QT: 342 QTc: 474 Interpretive Statements SINUS TACHYCARDIA POSSIBLE LEFT ATRIAL ENLARGEMENT [-0.1mV P-WAVE IN V1/V2] SEPTAL MYOCARDIAL INFARCTION , OF INDETERMINATE AGE [40+ ms Q WAVE IN V1/V2] No previous ECG available for comparison Electronically Signed On 05-24-2024 19:35:29 CONSERVATION SPECIALIST by HAYDEE ROGEL [email or web address] [id number]
--- NOTE | 2024-05-22 13:23 | ECG_ITS ---
[facility] Test Date: 2024-05-22 Pat Name: Vivek Corral Department: Room: ICU01 Gender: Male Care Director: : 1970 Requested By: Nathaniel Covington Order Number: [id number] Reading MD: HAYDEE ROGEL Measurements Intervals [place] Rate: 114 P: 58 NC: 136 QRS: -16 QRSD: 90 T: 134 QT: 312 QTc: 431 Interpretive Statements SINUS TACHYCARDIA POSSIBLE LEFT ATRIAL ENLARGEMENT [-0.1mV P-WAVE IN V1/V2] LOW QRS VOLTAGE IN PRECORDIAL LEADS [QRS DEFLECTION < 1.0 mV IN CHEST LEADS] ANTEROSEPTAL MYOCARDIAL INFARCTION , OF INDETERMINATE AGE [40+ ms Q WAVE IN V1-V4] INTERPRETATION BASED ON A DEFAULT AGE OF 40 YEARS No previous ECG available for comparison Electronically Signed On 05-24-2024 19:35:26 SUPERVISOR ALTERATION WORKROOM by HAYDEE ROGEL [id number]
[2024-05-22 13:32] LABS: ABG PCO2 37.6 mmHg (35-45); ABG PH Result 7.43 (7.35-7.45); Alveolar-Arterial Oxygen Gradi 5.1 mmHg (5-10); Arterial Blood Gas Hematocrit 38.8 % (42-52); Blood Gas Allen Test Pos; Blood Gas Operator Identificat WALCI; Blood Gas Sample Site Radial, right; Blood Gas Sample Type Arterial; Carboxyhemoglobin 1.3 %THgb (0.4-20.1); HCO3 ABG 25.1 mmol/L (22-26); HGB O2 Sat 91.4 % (95-100); Ionized Calcium Level - ABG 1.3 mmol/L (1.1-1.4); Methemoglobin 0.9 % (0.4-1.5); Oxygen Device ROOM AIR; Oxygen Saturation ABG 93.4; PO2 ABG 65.7 mmHg (80.0-100.0); PO2 FiO2 Ratio Arterial Blood 312; Potassium Level - ABG 4.3 mmol/L (3.5-5.0); Total Hemoglobin 12.7 g/dL (14-18)
[2024-05-22 13:35] LABS: Basophils % 0.1 %; Eosinophils # 0.1 10^3/uL (0.0-0.8); Eosinophils % 0.7 %; Hematocrit 45.1 % (37-53); Lymphocytes # 3.4 10^3/uL (0.8-4.8); Lymphocytes % 24.2 %; Mean Corpuscular HGB Conc 30.2 g/dL (30-55); Mean Corpuscular Hemoglobin 26.6 pg (27-33); Mean Corpuscular Volume 88.1 fl (82-101); Mean Platelet Volume 9.8 fL (7.4-10.4); Monocytes # 0.9 10^3/uL (0.2-0.9); Monocytes % 6.2 %; Neutrophils # 9.54 10^3/uL (1.8-7.7); Neutrophils % 68.4 %; Nucleated Red Blood Cells % 0 %; Platelet Count 449 10^3/cmm (157-399); Red Blood Count 5.12 10^6/uL (3.85-5.65); Red Cell Distribution Width 17.1 % (12.1-15.1); White Blood Count 13.96 10^3/uL (3.29-11.43)
[2024-05-22] MEDS: morphine 4 mg/mL SDV 1 mL IVP (13:36)
[2024-05-22] MEDS: clopidogrel 300 mg Tablet PO (13:37)
[2024-05-22] MEDS: heparin 5,000 unit/mL INJ 1 mL 4000 UNIT IVP (13:37)
[2024-05-22] MEDS: aspirin 325 mg Tablet PO (13:37)
[2024-05-22] MEDS: nitroglycerin drip 50 MG/250 ML PREMIX IV (13:38)
[2024-05-22] MEDS: ondansetron 2 mg/ML SDV 2 mL 4 MG IVP (13:50)
[2024-05-22 13:54] LABS: Alanine Aminotransferase 10 U/L (0-41); Albumin Level 4.7 g/dL (3.5-5.2); Alkaline Phosphatase 153 U/L (40-130); Aspartate Amino Transferase 18 U/L (0-40); Blood Urea Nitrogen 23 mg/dL (6-20); Carbon Dioxide 26 mmol/L (22-29); Chloride 96 mmol/L (98-107); Globulin 4.1 g/dL (1.3-4.6); Glomerular Filtration Rate 57.5 mL/min (90-130); Glucose 129 mg/dL (65-115); Osmolality Calculated 293 mOsm/kg (285-295); Sodium 139 mmol/L (136-145); Total Bilirubin 0.7 mg/dL (0.15-1.2); Total Protein 8.8 g/dL (6.6-8.7)
[2024-05-22 13:55] LABS: Troponin(5th) Baseline 38 ng/L (0-15)
[2024-05-22 14:04] LABS: Anion Gap 21.9 (5-19); Potassium 4.9 mmol/L (3.5-5.1)
--- NOTE | 2024-05-22 14:05 | ED_ITS ---
HPI - Chest Pain 2 General: Chief Complaint: Chest Pain Stated Complaint: stemi Time Seen by Provider: 05/22/24 13:28 History of Present Illness: 53-[facility]. He was found stumbling around in the orthopedic clinic poorly responsive. Patient has cardiomyopathy and wears a LifeVest there is no evidence of his LifeVest at discharge. Initially rapid response team called a stroke on arrival here as he was moving all extremities in fact he is combative at times. He is able to verbalize some short answers at times. There is no evidence of lateralizing defects stroke alert was called off. Initial EKG is a question of ST elevation in V2 and 3 patient complaining worsening chest pain and repeat EKG showed progression of ST elevation. Compared to old EKG was not present previously. Patient continues to complain of crushing chest pain. Associated symptoms: Reports dyspnea Review of Systems 2 General: Reports: ROS unobtainable due to mental status Card: Reports: chest pain Resp: Reports: dyspnea Physical Exam 2 HENMT: COMMON NORMALS: normocephalic, atraumatic and hearing grossly normal bilaterally HEAD & SCALP: normocephalic and atraumatic Resp: COMMON NORMALS: normal respiratory effort, No retractions and No use of accessory muscles EFFORT & INSPECTION: Yes tachypneic AUSCULTATION: w heezes Cardio: COMMON NORMALS: regular rate, regular rhythm and No murmurs present (Cardio) RATE: regular rate and tachycardic RHYTHM: regular rhythm GI: COMMON NORMALS: Soft to palpation and No hepatosplenomegaly present A USCULTATION: Yes normoactive bowel sounds PALPATION: Yes Soft to palpation, No Tenderness to palpation present (GI), No Guarding due to palpation present (GI) and Yes No hepatosplenomegaly present Extremity: COMMON NORMALS: normal to inspection, capillary refill normal, no clubbing, cyanosis or edema, no calf tenderness and no pedal edema Skin: COMMON NORMALS: no rashes or lesions noted GENERAL SKIN EXAM: no rashes or lesions noted Course 2 Vital Signs: Vital signs: Vital Signs Temperature 97.7 F 05/22/24 13:30 Pulse Rate 112 H 05/22/24 13:30 Respiratory Rate 25 H 05/22/24 13:30 Blood Pressure 130/86 05/22/24 13:30 Pulse Oximetry 95 05/22/24 13:30 Oxygen Delivery Me thod Room Air 05/22/24 13:30 MDM - Chest Pain Medical Decision Making Patient had ST elevation in V2 and 3 compared to previous EKGs very subtle description complaint of crushing chest pain. We had called a STEMI alert after canceling a stroke alert. Reviewed with Dr. Rosa and he is going to take the patient to the [facility] to do a heart catheterization he did receive Plavix aspirin and heparin as well as morphine and Zofran. Lab Data I reviewed the patient's lab results. 05/22/24 13:15 05/22/24 13:15 Laboratory Results WBC 13.96 10^3/uL (3.29-11.43) H 05/22/24 13:15 RBC 5.12 10^6/uL (3.85-5.65) 05/22/24 13:15 Hgb 13.60 g/dL (11.27-16.99) 05/22/24 13:15 Hct 45.1 % (37-53) 05/22/24 13:15 MCV 88.1 fl (82-101) 05/22/24 13:15 MCH 26.6 pg (27-33) L 05/22/24 13:15 MCHC 30.2 g/dL (30-55) 05/22/24 13:15 RDW 17.1 % (12.1-15.1) H 05/22/24 13:15 Plt Count 449 10^3/cmm (157-399) H 05/22/24 13:15 MPV 9.8 fL (7.4-10.4) 05/22/24 13:15 Neut % (Auto) 68.4 % 05/22/24 13:15 Lymph % (Auto) 24.2 % 05/22/24 13:15 [place] % (Auto) 6.2 % 05/22/24 13:15 Eos % (Auto) 0.7 % 05/22/24 13:15 Baso % (Auto) 0.1 % 05/22/24 13:15 Neut # (Auto) 9.54 10^3/uL (1.8-7.7) H 05/22/24 13:15 Lymph # (Auto) 3.4 10^3/uL (0.8-4.8) 05/22/24 13:15 [place] # (Auto) 0.9 10^3/uL (0.2-0.9) 05/22/24 13:15 Eos # (Auto) 0.1 10^3/uL (0.0-0.8) 05/22/24 13:15 Baso # (Auto) 0.0 10^3/uL (0.0-0.1) 05/22/24 13:15 Nucleated RBC % (auto) 0 % 05/22/24 13:15 Nucleated RBCs # 0.0 /100WBC 05/22/24 13:15 Specimen Type Arterial 05/22/24 13:21 Sample Site Radial, right 05/22/24 13:21 ABG pH 7.43 (7.35-7.45) 05/22/24 13:21 ABG pCO2 37.6 mmHg (35-45) 05/22/24 13:21 ABG pO2 65.7 mmHg (80.0-100.0) L 05/22/24 13:21 ABG PO2/FiO2 Ratio 312 05/22/24 13:21 ABG HCO3 25.1 mmol/L (22-26) 05/22/24 13:21 ABG O2 Saturation 93.4 05/22/24 13:21 ABG Base Excess 1.0 mmol/L (-2.0-2.0) 05/22/24 13:21 Ignacio Test Pos 05/22/24 13:21 A-a O2 Gradient 5.1 mmHg (5-10) 05/22/24 13:21 Hematocrit 38.8 % (42-52) L 05/22/24 13:21 Hgb O2 Saturation 91.4 % (95-100) L 05/22/24 13:21 Carboxyhemoglobin 1.3 %THgb (0.4-20.1) 05/22/24 13:21 Methemoglobin 0.9 % (0.4-1.5) 05/22/24 13:21 Total Hemoglobin 12.7 g/dL (14-18) L 05/22/24 13:21 Sodium 139.0 mmol/L (131-143) 05/22/24 13:21 Potassium 4.3 mmol/L (3.5-5.0) 05/22/24 13:21 Glucose 148.0 mg/dL (70-115) H 05/22/24 13:21 Ionized Calcium 1.3 mmol/L (1.1-1.4) 05/22/24 13:21 O2 Delivery Device Room air 05/22/24 13:21 FiO2 21.0 % 05/22/24 13:21 Shake Backboard Notcher ID Manoj 05/22/24 13:21 Sodium 139 mmol/L (136-145) 05/22/24 13:15 Potassium 4.9 mmol/L (3.5-5.1) 05/22/24 13:15 Chloride 96 mmol/L (98-107) L 05/22/24 13:15 Carbon Dioxide 26 mmol/L (22-29) 05/22/24 13:15 Anion Gap 21.9 (5-19) H 05/22/24 13:15 BUN 23 mg/dL (6-20) H 05/22/24 13:15 Creatinine 1.3 mg/dL (0.7-1.2) H 05/22/24 13:15 GFR Calculation 57.5 mL/min (90-130) L 05/22/24 13:15 Glucose 129 mg/dL (65-115) H 05/22/24 13:15 Calculated Osmolality 293 mOsm/kg (285-295) 05/22/24 13:15 Calcium 11.0 mg/dL (8.5-10.5) H 05/22/24 13:15 Total Bilirubin 0.7 mg/dL (0.15-1.2) 05/22/24 13:15 AST 18 U/L (0-40) 05/22/24 13:15 ALT 10 U/L (0-41) 05/22/24 13:15 Alkaline Phosphatase 153 U/L (40-130) H 05/22/24 13:15 Troponin T Baseline 38 ng/L (0-15) H 05/22/24 13:15 Total Protein 8.8 g/dL (6.6-8.7) H 05/22/24 13:15 Albumin 4.7 g/dL (3.5-5.2) 05/22/24 13:15 Globulin 4.1 g/dL (1.3-4.6) 05/22/24 13:15 No radiology studies performed this visit Discharge Plan Discharge Patient Disposition: Admitted As Inpatient Clinical Impression: ST elevation myocardial infarction (STEMI) Condition: Stable Coding Level of Care Code ED Steward/Stewardess Tourist Class for Caty Juarez
--- NOTE | 2024-05-22 14:23 | PM.PROC ---
Procedure Note: Date of procedure: 05/22/24 Pre-procedure diagnosis: ACS/Chest pain Procedure: Urgent left heart catheterization was performed since patient continues to have severe chest pain and has prior history of LAD and circumflex stent placed in March. Left main is normal, LAD has luminal irregularity without significant stenosis patent previously placed LAD stent, left circumflex does not have any blockage, RCA does not have any stenosis Left ventricular end-diastolic pressure was 39 mmHg Left ventricle ejection fraction 20% with global hypokinesis Right groin sheath in place Once PTT less than 45, discontinue sheath Bedrest for 5 hours No IV fluid because of high left ventricular end-diastolic pressure Please start patient on Lasix 40 mg IV twice daily Keep potassium over the 4.0 Resume home meds including dual antiplatelet therapy aspirin 81 mg of 75 mg of Plavix Full note to be dictated Coding Level of Care Code Acute Code for Caty Juarez
--- NOTE | 2024-05-22 14:33 | P.CONIM_ITS ---
<Statement entered by Lisa Ramirez MD - 05/22/24 19:06> Patient was evaluated and cared for in conjunction with an advanced practice practitioner. I personally examined the patient and reviewed the chart and all pertinent data including imaging, telemetry, and laboratory results. I discussed the patient in detail with the advanced practice practitioner. Please see their note for complete H&P testing result and agreed upon plan of care for the patient. 53-year-old male past medical history significant for ischemic cardiomyopathy severely depressed ejection fraction history of CHF presented with chest pain and subtle EKG changes in the anterolateral concerning for possible ischemia he was taken to the [facility] noted to have patent previously placed LAD and circumflex stent there was no other significant lesion noted, left ventricular end-diastolic pressure was more than 39mmHg. Patient was given IV Lasix and admitted and moved to ICU GENERAL: Patient is alert, awake and oriented x3. HEART: Regular S1 and S2. No murmur, rub or gallop. LUNGS: Decreased breath sound bilaterally. CENTRAL NERVOUS SYSTEM: Grossly nonfocal. EXTREMITIES: Lower extremities with out edema bilaterally. Assessment and plan Acute decompensated on systolic heart failure Chest pain Ischemic cardiomyopathy Status post LifeVest Patient was noted to have high LVEDP, he required diuresis I will start patient on IV 40 mg twice daily. Goal is 1 to 1.5 L negative Optimize guideline medical therapy for heart failure Continue aspirin statin beta-alli and Plavix Providers/Reason For Consult 2 Consulting Physician/Specialty*: Lisa Ramirez MD Reason for Consult*: Chest pain, EKG changes Requesting Physician: Dr. Harding Attending Physician: Lisa Ramirez MD History of Present Illness History of Present Illness Vivek Corral is a 53 year old male with a history of ischemic cardiomyopathy who came to an orthopedic visit today and developed severe chest pain and shortness of breath. Lifevest was in place. Rapid response was called and patient was brought to the ER. In the ER patient's initial EKG had a question of subtotal ST elevation in V2 and V3. Patient was complaining worsening chest pain and repeat EKG showed progression of the ST elevation. He stated he may have missed taking his Plavix. Due to the fact that he was reporting severe shortness of breath and chest pain, possible medication noncompliacne, he was taken to the [facility] immediately. He received Plavix aspirin and heparin as well as morphine and Zofran in the ED. Heart cath showed left ventricular ejection fraction of 20% with global hypokinesis. Left main was not normal, LAD had luminal irregularities without significant stenosis and previously placed LAD stent was patent, left circumflex did not have any blockage, RCA was without stenosis. Left ventricular end-diastolic pressure was 39. Review of Systems 2 Narrative: Unable to obtain. Patient still slightly sedated on assessment Medications/Allergies Home Medications ?Medication ?Instructions ?Recorded ?Confirmed ?Last Taken ?Type allopurinol 300 mg tablet 300 mg PO DAILY 05/22/24 Unknown History aspirin 81 mg tablet,delayed 81 mg PO DAILY 05/22/24 0 05/22/24 Unknown History release atorvastatin 40 mg tablet 40 mg PO QPM 05/22/24 Unknown History carvedilol 3.125 mg tablet 3.125 mg PO BID 05/22/24 Unknown History clopidogrel 75 mg tablet 75 mg PO DAILY 05/22/2405/10 Unknown History losartan 25 mg tablet 12.5 mg PO DAILY 05/22/24 Unknown History nitroglycerin 0.4 mg sublingual 0.4 mg sublingual PRN PRN Pain 05/22/24 05/22/24 Unknown History tablet pantoprazole 40 mg tablet,delayed 40 mg PO DAILY 05/2205/22/24 Unknown History release ramipril 10 mg capsule 10 mg PO DAILY 05/22/2405/10 Unknown History Current Medications Generic Name Dose Route Start Last Admin Trade Name Freq PRN Reason Stop Dose Admin Nitroglycerin/Dextrose 50 mg in 250 mls @ 0 mls/hr 05/22/24 13:30 05/22/24 13:38 Nitroglycerin Drip IV 5 mcg/min .Q0M JUNIOR 1.5 mls/hr Administration Protocol Per Protocol Morphine Sulfate 4 mg 05/22/24 13:28 05/22/24 13:36 Morphine 4 Mg/Ml Sdv 1 Ml IVP 4 mg Q5M PRN Administration CHEST PAIN Vitals/I&O/Wt Last Vital Signs Temp 97.7 F 05/22/24 13:30 Pulse 112 H 05/22/24 13:30 Resp 25 H 05/22/24 13:30 BP 130/86 05/22/24 13:30 Pulse Ox 95 05/22/24 13:30 O2 Del Method Room Air 05/22/24 13:30 Weight last 48 hrs Weight 186 lb 7 oz Physical Exam 2 Narrative: General: No apparent distress, healthy appearing, well nourished HENMT: normoceophalic Eye: PERR Muskuloskeletal: Full ROM Lymphatic: no lymphedema noted Respiratory: Normal respiratory effort, clear to auscultation bilaterally throughout all lung wolf, no use of accessory muscles Cardio: No JVD, regular rate, regular rhythm, S1 S2 normal, no murmurs, peripheral pulses 2+ radial palpated bilaterally GI: Normal to inspection, nondistended Extremities: Full ROM, normal, normal capillary refill, no cyanosis or edema Neuro: Alert and oriented x4, no focal motor deficits Psych: Affect normal, denies suicidal ideation, mental status grossly normal Skin: No rashes or lesions noted, no wounds Data 05/22/24 13:15 05/22/24 13:15 A&P Assessment and plan (1) Coronary artery disease: Qualifiers: Coronary Disease-Associated Artery/Lesion type: ruby artery [place] vs. transplanted heart: ruby heart Associated angina: with unstable angina Q ualified Code(s): I25.110 - Atherosclerotic heart disease of ruby coronary artery with unstable angina pectoris (2) Ischemic cardiomyopathy: (3) Chest pain: Qualifiers: Chest pain type: other chest pain Qualified Code(s): R07.89 - Other chest pain (4) Shortness of breath: Plan At this time we will start the patient on Lasix 40 mg IV twice daily with potassium 20 meq equivalents twice daily due to patient had a high lead ventricular end-diastolic pressure of 39. Chest pain and shortness of breath due to decompensated heart failure. He will need diuresis with a goal of -1-1.5L/24 hours. Will resume home meds including aspirin Plavix, carvedilol. PDMP PDMP Reviewed: Not Reviewed Consult Attestations 2 Medical Necessity Statement: Patient stay expected to cross 2 midnights due to the above defined care. Coding Level of Care Code Acute Code for g Fwd Diagnoses Coronary artery disease involving ruby coronary artery of ruby heart with unstable angina pectoris I25.110 Coronary Disease-Associated Artery/Lesion type: ruby artery [place] vs. transplanted heart: ruby heart Associated angina: with unstable angina Ischemic cardiomyopathy I25.5 Other chest pain R07.89 Chest pain type: other chest pain Shortness of breath R06.02
[2024-05-22] MEDS: FUROsemide 10 mg/mL SDV 4mL 40 MG IVP (15:19)
[2024-05-22] MEDS: nitroglycerin 0.4 mg sublingual Tablet SUBLINGUAL ×2 (15:45→15:54)
--- NOTE | 2024-05-22 16:34 | PC.NURSE ---
Patient declined to have wallet placed with security in safe. Patient wanted to send his wallet and $353 home with his mother.
[2024-05-22 17:52] LABS: Partial Thromboplastin Time 27.3 SECONDS (23.9-36.7)
[2024-05-22 17:54] LABS: Troponin 5 2HR 32.37 ng/L (0-15)
[2024-05-22 17:55] LABS: Troponin 5 2HR Delta -5.63 ABS# (0-10)
--- NOTE | 2024-05-22 18:46 | PC.NURSE ---
Sheath removed, 15min pressure held, no hmotoma formed. Tolerated well. Pulses present. Dressing in place with no bleeding at this time.
[2024-05-22] MEDS: potassium chloride ER 20 mEq Tablet PO (18:52)
--- NOTE | 2024-05-22 20:08 | PM.HP ---
Providers/Chief Complaint Admitting Physician: Lisa Ramirez MD Chief Complaint: stemi History of Present Illness Vivek Corral is a 53 year old male with a history of ischemic cardiomyopathy who came to an orthopedic visit today and developed severe chest pain and shortness of breath. Lifevest was in place. Rapid response was called and patient was brought to the ER. In the ER patient's initial EKG had a question of subtotal ST elevation in V2 and V3. Patient was complaining worsening chest pain and repeat EKG showed progression of the ST elevation. He stated he may have missed taking his Plavix. Due to the fact that he was reporting severe shortness of breath and chest pain, possible medication noncompliance, he was taken to the [facility] immediately. He received Plavix aspirin and heparin as well as morphine and Zofran in the ED. Heart cath showed left ventricular ejection fraction of 20% with global hypokinesis. Left main was not normal, LAD had luminal irregularities without significant stenosis and previously placed LAD stent was patent, left circumflex did not have any blockage, RCA was without stenosis. Left ventricular end-diastolic pressure was 39. Patient states he lives with his mom. He quit tobacco March when he had his cardiac stents he was smoking 4 cigarettes a day at the time. 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 Alcohol none in years except for a rare beer now. 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 He states he did not have heart disease at that time. Patient had LAD and left circumflex stent March 2024. Angiogram today no blockage. Patient states his PCP is [facility] physician Dr. Escamilla Review of Systems Narrative: General He has been feeling fatigued. Patient has not been sleeping well. The vest is uncomfortable and he does not wear it at home. He states he wears about 25% of the time but that is 100% when he leaves the house. Cardiovascular has had mild chest pain now. He has had severe orthopnea and dyspnea on exertion. He states he is short of breath even just sitting. The defibrillator has not shocked him Respiratory positive for dyspnea on exertion he had flu with cough in April and occasional coughing fits GI positive for nausea vomiting with the flu but not now patient denies diarrhea or melena no hematochezia no dysuria hematuria pees a lot with the furosemide Neuro denies falling today reports some neck discomfort today Medications/Allergies Home Medications ?Medication ?Instructions ?Recorded ?Confirmed ?Last Taken ?Type allopurinol 300 mg tablet 300 mg PO DAILY 05/22/24 05/22/24 Unknown History aspirin 81 mg tablet,delayed 81 mg PO DAILY 05/22/24 05/22/24 Unknown History release atorvastatin 40 mg tablet 40 mg PO QPM 05/22/24 05/22/24 Unknown History carvedilol 3.125 mg tablet 3.125 mg PO BID 05/22/24 05/22/24 Unknown History clopidogrel 75 mg tablet 75 mg PO DAILY 05/22/24 05/22/24 Unknown History losartan 25 mg tablet 12.5 mg PO DAILY 05/22/24 05/22/24 Unknown History nitroglycerin 0.4 mg sublingual 0.4 mg sublingual PRN PRN Pain 05/22/24 05/22/24 Unknown History tablet pantoprazole 40 mg tablet,delayed 40 mg PO DAILY 05/22/24 05/22/24 Unknown History release ramipril 10 mg capsule 10 mg PO DAILY 05/22/24 05/22/24 Unknown History Allergies Allergy/AdvReac Type Severity Reaction Status Date / Time sulfamethoxazole (From Allergy Severe Tongue Verified 05/22/24 20:31 ) swelled trimethoprim (From ) Allergy Severe Tongue Verified 05/22/24 20:31 swelled adhesive tape Allergy Intermediate rash Verified 05/22/24 20:37 Vitals/I&O/Wt Last Vital Signs Temp 97.7 F 05/22/24 13:30 Pulse 103 H 05/22/24 16:36 Resp 20 H 05/22/24 15:30 BP 111/73 05/22/24 15:30 Pulse Ox 94 05/22/24 15:30 O2 Del Method Room Air 05/22/24 16:23 05/22/24 05/22/24 05/22/24 06:59 14:59 22:59 Intake Total 400 / 400 Output Total 1300 / 1300 Balance -900 / -900 Weight last 48 hrs Weight 80.796 kg Weight 84.567 kg Physical Exam Narrative: General Well-developed well-nourished male in no acute cardiopulmonary stress he is somewhat listless. Reports this is from fatigue Mentation he is alert and oriented times person place and date CV regular rate and rhythm no murmurs or rubs Lungs crackles heard in bases he has prolonged respiratory phase abdomen positive bowel sounds soft nontender Calves no edema Neck no JVD Data 05/22/24 13:15 05/22/24 13:15 A&P Assessment and plan (1) Ischemic cardiomyopathy: Patient is admitted for diuresis repeat echo, telemetry and chest x-ray in the morning. He has had angiogram done today showing no occlusion of his recent LAD and left circumflex stents Plan I will need to figure out how to look at old records from [facility] and last admission PDMP PDMP Reviewed: Not Reviewed Attestations Medical Necessity Statement*: Patient will need to be diuresed and repeat echo performed. Continue with telemetry to monitor her for arrhythmia. Chest x-ray in the morning Patient will be in the hospital for greater than 2 midnight Time Spent in Patient Care: 55 minutes Coding Level of Care Code Acute Code for [facility] Fwd Diagnoses Ischemic cardiomyopathy I25.5
[2024-05-22 20:35] LABS: Troponin 5 6HR 28.85 ng/L (0-15)
[2024-05-22 20:38] LABS: Troponin 5 6HR Delta -9.15 ng/L (0-12)
[2024-05-23] VITALS (41 sets, daily range): BP systolic 82–115; BP diastolic 60–83; PULSE 98–111; RESP 15–39; TEMP 36.1–36.6; O2SAT 85–97
[2024-05-23 04:02] LABS: Basophils % 0.2 %; Eosinophils # 0.1 10^3/uL (0.0-0.8); Eosinophils % 0.8 %; Hematocrit 38.3 % (37-53); Lymphocytes # 2.7 10^3/uL (0.8-4.8); Lymphocytes % 20.7 %; Mean Corpuscular HGB Conc 30.5 g/dL (30-55); Mean Corpuscular Hemoglobin 26.3 pg (27-33); Mean Corpuscular Volume 86.1 fl (82-101); Mean Platelet Volume 9.9 fL (7.4-10.4); Monocytes # 1.1 10^3/uL (0.2-0.9); Monocytes % 8.3 %; Neutrophils # 8.99 10^3/uL (1.8-7.7); Neutrophils % 69.5 %; Nucleated Red Blood Cells % 0 %; Platelet Count 350 10^3/cmm (157-399); Red Blood Count 4.45 10^6/uL (3.85-5.65); White Blood Count 12.93 10^3/uL (3.29-11.43)
[2024-05-23 04:28] LABS: Anion Gap 17.5 (5-19); Blood Urea Nitrogen 25 mg/dL (6-20); Calcium 9.9 mg/dL (8.5-10.5); Carbon Dioxide 27 mmol/L (22-29); Chloride 96 mmol/L (98-107); Creatinine Clr Calc Pharmacy 60.2328; Glomerular Filtration Rate 52.8 mL/min (90-130); Glucose 116 mg/dL (65-115); Osmolality Calculated 287 mOsm/kg (285-295); Potassium 4.5 mmol/L (3.5-5.1); Sodium 136 mmol/L (136-145)
[2024-05-23 04:29] LABS: Magnesium 1.9 mg/dL (1.7-2.3)
[2024-05-23] MEDS: FUROsemide 10 mg/mL SDV 4mL 40 MG IVP ×2 (04:54→15:10)
[2024-05-23] MEDS: allopurinol 300 mg Tablet PO (08:16)
[2024-05-23] MEDS: potassium chloride ER 20 mEq Tablet PO ×2 (08:16→17:24)
[2024-05-23] MEDS: aspirin 81 mg EC Tablet PO (08:16)
[2024-05-23] MEDS: pantoprazole DR 40 mg Tablet PO (08:17)
[2024-05-23] MEDS: clopidogrel 75 mg Tablet PO (08:17)
--- NOTE | 2024-05-23 08:30 | XR_ITS ---
WS: [id number] XR chest 1V portable [id number] REASON FOR EXAM: Follow-up congestive heart failure FINDINGS: No previous examination for comparison. Moderate tortuosity of the thoracic aorta. Mild cardiomegaly. Blunting of the left costophrenic angle and obscuration of the lateral margin of the hemidiaphragmatic contour compatible with pleural effusion and atelectasis, unknown chronicity. No significant central vascular congestion and no evidence of pulmonary edema. XR/XR chest 1V portable [id number] IMPRESSION: Cardiomegaly. Right lower hemithorax abnormality as above. No findings of acute congestive heart failure.
--- NOTE | 2024-05-23 08:38 | PM.PN ---
Subjective Subjective: 53-year-old male admitted through the ER sees Dr. Escamilla at [facility]. He had 2 stents last admission which is documented on another medical record number. I called medical records today to get this remedied. Patient had selective coronary angiogram yesterday showing his LAD and left circumflex stents are open. He was conservatively diuresed overnight Patient tells me he has been passing lots of urine. He has had a good night sleep but still feels like he is behind on sleep and still feels tired Patient tells me had a lot of coughing in March when he was sick and thinks he hurt his neck. He is going to see Dr. Mcghee about this prior to being admitted patient denies new shooting pain down his extremities Vitals/I&O/Wt Last Vital Signs Temp 97.0 F L 05/23/24 04:00 Pulse 101 H 05/23/24 06:00 Resp 33 H 05/23/24 04:45 BP 92/73 05/23/24 04:45 Pulse Ox 92 05/23/24 04:45 O2 Del Method Room Air 05/22/24 16:23 05/22/24 05/23/24 05/23/24 22:59 06:59 14:59 Intake Total 400 / 400 462 / 862 Output Total 1600 / 1600 1250 / 2850 Balance -1200 / -1200 -788 / -1987 Weight last 48 hrs Weight 79.5 kg Weight 80.796 kg Weight 84.567 kg Physical Exam Narrative: General Well-developed well-nourished male in no acute cardiopulmonary stress more alert today Mentation he is alert and oriented times person place and date CV regular rate and rhythm no murmurs or rubs Lungs clear mildly diminished in the bases right worse than left Calves no edema Neck posterior vertical incisional scar noted nontender to palpation. Patient is not guarding with moving his head around Data 05/23/24 02:56 05/23/24 02:56 A&P Assessment and plan (1) Ischemic cardiomyopathy: Patient is admitted for diuresis repeat echo, telemetry and chest x-ray in the morning. He has had angiogram done today showing no occlusion of his recent LAD and left circumflex stents 53-year-old man with history of ischemic cardiomyopathy with 03/10/2024 LAD and circumflex artery stenting, CHF with EF of 15% with sees Dr. Alcocer. He is on aspirin and Plavix. He has a LifeVest. Had recent influenza infection (2) Acute on chronic systolic congestive heart failure: Patient with gentle diuresis overnight but still with fatigue. His EF had been 15% repeat echo has been ordered. X-ray shows modest cardiomegaly and right pleural effusion azygous vein looks distended (3) DJD (degenerative joint disease) of cervical spine: He has had worsened pain after coughing episode in March and had follow-up with Dr. Mcghee. No alarm features to his symptoms currently follow-up outpatient Plan I will need to figure out how to look at old records from [facility] and last admission PDMP PDMP Reviewed: Not Reviewed Attestations Medical Necessity Statement*: Patient will remain in the hospital for additional diuresis and cardiac monitoring. He can likely transfer to cardiac stepdown unit if acceptable to the cardiology service Coding Level of Care Code 23718 Diagnoses Ischemic cardiomyopathy I25.5 Acute on chronic systolic congestive heart failure I50.23 DJD (degenerative joint disease) of cervical spine M47.812 Time Spent (min) 55
[2024-05-23] MEDS: magnesium oxide 400 mg tablet PO (12:18)
--- NOTE | 2024-05-23 12:21 | P.PN_ITS ---
<Statement entered by Lisa Ramirez MD - 06/02/24 00:52> Patient was evaluated and cared for in conjunction with an advanced practice practitioner. I personally examined the patient and reviewed the chart and all pertinent data including imaging, telemetry, and laboratory results. I discussed the patient in detail with the advanced practice practitioner. Please see their note for complete H&P testing result and agreed upon plan of care for the patient Subjective 2 Subjective: Patient is doing well today. He is sleeping flat. Appears to be euvolemic. Lungs are clear no edema present. I have held losartan due to blood pressure is soft. Creatinine also has had a slight increase at 1.4. Overall no complaints of chest pain or shortness of breath Vitals/I&O/Wt Last Vital Signs Temp 97.0 F L 05/23/24 04:00 Pulse 101 H 05/23/24 06:00 Resp 33 H 05/23/24 04:45 BP 92/73 05/23/24 04:45 Pulse Ox 92 05/23/24 04:45 O2 Del Method Room Air 05/22/24 16:23 05/22/24 05/23/24 05/23/24 22:59 06:59 14:59 Intake Total 400 / 400 462 / 862 Output Total 1600 / 1600 1250 / 2850 Balance -1200 / -1200 -78 / -1987 Weight last 48 hrs Weight 175 lb 4.28 oz Weight 178 lb 2 oz Weight 186 lb 7 oz Physical Exam 2 Narrative: General: No apparent distress, healthy appearing, well nourished HENMT: normoceophalic Eye: PERR Muskuloskeletal: Full ROM Lymphatic: no lymphedema noted Respiratory: Normal respiratory effort, clear to auscultation bilaterally throughout all lung wolf, no use of accessory muscles Cardio: No JVD, regular rate, regular rhythm, S1 S2 normal, no murmurs, peripheral pulses 2+ radial palpated bilaterally GI: Normal to inspection, nondistended Extremities: Full ROM, normal, normal capillary refill, no cyanosis or edema Neuro: Alert and oriented x4, no focal motor deficits Psych: Affect normal, denies suicidal ideation, mental status grossly normal Skin: No rashes or lesions noted, no wounds Data 05/23/24 02:56 05/23/24 02:56 A&P Assessment and plan (1) Hypertension: Qualifiers: Hypertension type: primary hypertension Qualified Code(s): I10 - Essential (primary) hypertension (2) Nicotine dependence, cigarettes, uncomplicated: (3) Ischemic cardiomyopathy: (4) CAD (coronary artery disease): (5) ST elevation myocardial infarction (STEMI): (6) Chest pain: Qualifiers: Chest pain type: other chest pain Qualified Code(s): R07.89 - Other chest pain (7) Acute on chronic systolic congestive heart failure: Plan Will hold losartan at this time with slight increase in creatinine as well as patient is slightly hypotensive. Continue carvedilol 3.125 twice daily. Patient had over -1988 liters over 24 hours. Will need to carefully diurese and monitor creatinine. PDMP PDMP Reviewed: Not Reviewed Attestations 2 Medical Necessity Statement*: Deferred to primary care. Coding Level of Care Code Acute Code for [facility] Diagnoses Primary hypertension I10 Hypertension type: primary hypertension Nicotine dependence, cigarettes, uncomplicated F17.210 Ischemic cardiomyopathy I25.5 CAD (coronary artery disease) I25.10 ST elevation myocardial infarction (STEMI) I21.3 Other chest pain R07.89 Chest pain type: other chest pain Acute on chronic systolic congestive heart failure I50.23
[2024-05-23] MEDS: atorvastatin 40 mg Tablet PO (17:24)
[2024-05-24] VITALS (19 sets, daily range): BP systolic 93–119; BP diastolic 57–85; PULSE 78–115; RESP 18–31; TEMP 36.5–36.8; O2SAT 92–100
--- NOTE | 2024-05-24 02:40 | PC.NURSE ---
Patient called nurse into room and stated that he felt weak. Patient was sitting in the chair. Patient assisted to bed. Vital signs taken and are stable. Patient had recently been walking laps in the unit. Patient states he is not having any pain or any other symptoms. After a few minutes, this nurse went back in room to check on patient and see how he was feeling. Patient is resting with eyes closed.
[2024-05-24] MEDS: FUROsemide 10 mg/mL SDV 4mL 40 MG IVP (04:41)
[2024-05-24 06:02] LABS: Anion Gap 16.2 (5-19); Blood Urea Nitrogen 26 mg/dL (6-20); Carbon Dioxide 29 mmol/L (22-29); Chloride 96 mmol/L (98-107); Creatinine Clr Calc Pharmacy 69.9546; Glomerular Filtration Rate 63.1 mL/min (90-130); Glucose 109 mg/dL (65-115); Osmolality Calculated 289 mOsm/kg (285-295); Potassium 4.2 mmol/L (3.5-5.1); Sodium 137 mmol/L (136-145)
--- NOTE | 2024-05-24 06:31 | ECG_ITS ---
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: : 1970 Requested By: Matt Quarles Order Number: [id number] Clemencia MD: HAYDEE ROGEL Measurements Intervals [place] Rate: 100 P: 60 NJ: 161 QRS: -25 QRSD: 94 T: 139 QT: 369 QTc: 477 Interpretive Statements SINUS TACHYCARDIA BORDERLINE LEFT AXIS DEVIATION [QRS AXIS < -20] MODERATE T-WAVE ABNORMALITY, CONSIDER LATERAL ISCHEMIA [-0.1+ mV T-WAVE IN I/aVL/V5/V6] Compared to ECG 05/08/2024 03:19:28 T-wave abnormality now present Possible ischemia now present Myocardial infarct finding no longer present Electronically Signed On 05-24-2024 19:15:05 BUFFER COPPER by HAYDEE ROGLE [email or web address]
--- NOTE | 2024-05-24 06:40 | PC.NURSE ---
Patient c/o chest pain. EKG taken. VSS. Dr. Gee notified. No new orders received.
[2024-05-24] MEDS: pantoprazole DR 40 mg Tablet PO (08:07)
[2024-05-24] MEDS: allopurinol 300 mg Tablet PO (08:07)
[2024-05-24] MEDS: carvedilol 3.125 mg Tablet PO (08:07)
[2024-05-24] MEDS: potassium chloride ER 20 mEq Tablet PO ×2 (08:07→17:20)
[2024-05-24] MEDS: aspirin 81 mg EC Tablet PO (08:07)
[2024-05-24] MEDS: magnesium oxide 400 mg tablet PO (08:07)
[2024-05-24] MEDS: clopidogrel 75 mg Tablet PO (08:08)
--- NOTE | 2024-05-24 08:59 | USCV_ITS ---
Vivek Corral Age: 53 Gender: M : 1970 Exam Date: 05/24/2024 09:55 Ordering Phys: Damir Pagan MD Technologist: Moy Guthrie [place] [facility] [place]: EF BP: 109 / 85 HR: Rhythm: Sinus Technical Quality: Adequate MEASUREMENTS (Male / Female) Normal Values 2D ECHO LV Diastolic Diameter PLAX 5.7 cm 4.2 - 5.9 / 3.9 - 5.3 cm IVS Diastolic Thickness 0.6 cm 0.6 - 1.0 / 0.6 - 0.9 cm IVS Systolic Thickness 1.4 cm LVPW Diastolic Thickness 1.6 cm 0.6 - 1.0 / 0.6 - 0.9 cm LVPW Systolic Thickness 1.6 cm LVOT Diameter 2.1 cm LV Ejection Fraction 2D Teich 17.3 % LV Ejection Fraction MOD 4C 26.0 % LV Ejection Fraction MOD 2C 29.8 % LV Ejection Fraction 2C AL 28.6 % LA Diameter 3.7 cm RA Systolic Volume 4C AL 54.0 ml RA Systolic Volume 4C MOD 52.8 ml LA Sys Volume AL 71.2 cm cubed LA Sys Volume Index AL 36.5 cm cubed/m squared Aorta at Sinotubular Diameter 2.3 cm IVC Diameter 2.0 cm M-MODE LA Ao Ratio MM 1.2 AV Cusp Separation MM 1.7 cm FINDINGS Left Ventricle Severe diffuse hypokinesia of the left ventricle with an ejection fraction of 28%. Mildly dilated LV cavity. Right Ventricle The right ventricle is normal in size and function. Right Atrium Mildly increased right atrial size. Left Atrium Moderately dilated left atrium Mitral Valve Mild mitral annular calcification. Aortic Valve Thickened aortic valve. Tricuspid Valve No gross abnormalities noted Pulmonic Valve No gross abnormalities noted Pericardium Normal pericardium without effusion. Aorta Normal ascending aorta dimension. IVC Normal inferior vena cava. CONCLUSIONS Severe diffuse hypokinesia of the left ventricle with an ejection fraction of 28%. Mildly dilated LV cavity. Moderately dilated left atrium. Mildly increased right atrial size. Thickened aortic valve. There is no pericardial effusion. There are no intracardiac masses. Compared to the study from 11/19/2023, the LV ejection fraction has improved from 17% to 28% Dr Siobhan Gee MD [facility] (Electronically Signed) Final Date: 24 May 2024 12:08 S
--- NOTE | 2024-05-24 09:06 | P.PN_ITS ---
Subjective 2 Subjective: Patient is doing well today. Walking and thought that he would be able to go home. When asked who told him he could go home he states he is not sure and maybe he dreamed that patient denies chest pain. Vitals/I&O/Wt Last Vital Signs Temp 97.7 F 05/24/24 00:55 Pulse 102 H 05/24/24 06:41 Resp 18 05/24/24 04:40 BP 109/85 05/24/24 06:41 Pulse Ox 95 05/24/24 06:41 O2 Del Method Room Air 05/24/24 06:41 05/23/24 05/24/24 05/24/24 22:59 06:59 14:59 Intake Total 2500 / 2850 240 / 240 Output Total 1675 / 1675 2150 / 3825 Balance -1675 / -1325 350 / -975 240 / 240 Weight last 48 hrs Weight 80 kg Weight 79.5 kg Weight 80.796 kg Weight 84.567 kg Physical Exam 2 Narrative: General Well-developed well-nourished male in no acute cardiopulmonary stress more alert today Mentation he is alert and oriented times person place and date CV regular rate and rhythm no murmurs or rubs Lungs clear to auscultation bilaterally Calves no edema Data 05/23/24 02:56 05/24/24 04:50 A&P Assessment and plan (1) Ischemic cardiomyopathy: (2) DJD (degenerative joint disease) of cervical spine: (3) Acute on chronic systolic congestive heart failure: Plan I will need to figure out how to look at old records from [facility] and last admission PDMP PDMP Reviewed: Not Reviewed Coding Level of Care Code Acute Code for Chg Fwd Diagnoses Ischemic cardiomyopathy I25.5 DJD (degenerative joint disease) of cervical spine M47.812 Acute on chronic systolic congestive heart failure I50.23
[2024-05-24 09:11] LABS: Uric Acid 9.6 mg/dL (3.4-7.0)
--- NOTE | 2024-05-24 09:11 | P.PN_ITS ---
Subjective 2 Subjective: Patient is doing well today. Walking and thought that he would be able to go home. When asked who told him he could go home he states he is not sure and maybe he dreamed that patient denies chest pain. Vitals/I&O/Wt Last Vital Signs Temp 97.7 F 05/24/24 00:55 Pulse 102 H 05/24/24 06:41 Resp 18 05/24/24 04:40 BP 109/85 05/24/24 06:41 Pulse Ox 95 05/24/24 06:41 O2 Del Method Room Air 05/24/24 06:41 05/23/24 05/24/24 05/24/24 22:59 06:59 14:59 Intake Total 2500 / 2850 240 / 240 Output Total 1675 / 1675 2150 / 3825 Balance -1675 / -1325 350 / -975 240 / 240 Weight last 48 hrs Weight 80 kg Weight 79.5 kg Weight 80.796 kg Weight 84.567 kg Physical Exam 2 Narrative: General Well-developed well-nourished male in no acute cardiopulmonary stress more alert today Mentation he is alert and oriented times person place and date CV regular rate and rhythm no murmurs or rubs Lungs clear to auscultation bilaterally Calves no edema Patient is standing steady on his feet and conversing without dyspnea Data 05/23/24 02:56 05/24/24 04:50 CXR: My impression: Mild pulmonary vascular congestion right pleural effusion 05/23/2024 Sinus tachycardia: My Interpretation: Sinus tachycardia with left axis deviation 05/24/2023 A&P Assessment and plan (1) Ischemic cardiomyopathy: Patient with a defibrillator vest. Will obtain an echo to see if his EF is still below 20%. Rhythm has been stable here transfer to cardiac stepdown (2) Acute on chronic systolic congestive heart failure: Change IV furosemide to oral Bumex twice a day in preparation for discharge. Titrating to oral medication for 1 day prior to discharge (3) CAD (coronary artery disease): Stable and selective coronary angiogram done day of admission shows no occlusion of the LAD and left circumflex stents continue dual antiplatelet therapy (4) Bipolar disorder, current episode depressed, moderate: Stable PDMP PDMP Reviewed: Not Reviewed Attestations 2 Medical Necessity Statement*: Patient will be switched to oral diuretics today and transferred to stepdown anticipate discharge home tomorrow Time Spent in Patient Care: 55 minutes Coding Level of Care Code 06298 Diagnoses Ischemic cardiomyopathy I25.5 Acute on chronic systolic congestive heart failure I50.23 CAD (coronary artery disease) I25.10 Bipolar disorder, current episode depressed, moderate F31.32 Time Spent (min) 55
[2024-05-24 12:03] LABS: Amphetamines Screen Urine Negative (Negative); Barbiturates Screen Urine Negative (Negative); Benzodiazepines Screen Urine Positive (Negative); Cocaine Screen Urine Negative (Negative); Opiate Screen Urine Positive (Negative); PCP Screen Urine Negative (Negative); THC Screen Urine Negative (Negative)
[2024-05-24] MEDS: spironolactone 25 mg Tablet 12.5 MG PO (13:06)
--- NOTE | 2024-05-24 14:12 | P.PN_ITS ---
Subjective 2 Subjective: Patient feeling better denies any complaint Vitals/I&O/Wt Last Vital Signs Temp 97.7 F 05/24/24 00:55 Pulse 102 H 05/24/24 06:41 Resp 18 05/24/24 04:40 BP 109/85 05/24/24 06:41 Pulse Ox 95 05/24/24 06:41 O2 Del Method Room Air 05/24/24 06:41 05/23/24 05/24/24 05/24/24 22:59 06:59 14:59 Intake Total 2500 / 2850 240 / 240 Output Total 1675 / 1675 2150 / 3825 Balance -1675 / -1325 350 / -975 240 / 240 Weight last 48 hrs Weight 176 lb 5.917 oz Weight 175 lb 4.28 oz Weight 178 lb 2 oz Physical Exam 2 Const: OTHER: GENERAL: Patient is alert, awake and oriented x3. HEART: Regular S1 and S2. No murmur, rub or gallop. LUNGS: Clear to auscultate bilaterally. CENTRAL NERVOUS SYSTEM: Grossly nonfocal. EXTREMITIES: Lower extremities with out edema bilaterally. Data 05/23/24 02:56 05/24/24 04:50 A&P Assessment and plan (1) Hypertension: Qualifiers: Hypertension type: primary hypertension Qualified Code(s): I10 - Essential (primary) hypertension (2) Nicotine dependence, cigarettes, uncomplicated: (3) Ischemic cardiomyopathy: (4) CAD (coronary artery disease): (5) ST elevation myocardial infarction (STEMI): (6) Chest pain: Qualifiers: Chest pain type: other chest pain Qualified Code(s): R07.89 - Other chest pain (7) Acute on chronic systolic congestive heart failure: Plan Patient appeared to be euvolemic. Guideline medical therapy for heart failure was optimized by hospitalist colleague including spironolactone Farxiga and p.o. Bumex Over next 24 hours we will see how he tolerates with possible discharge tomorrow PDMP PDMP Reviewed: Not Reviewed Attestations 2 Medical Necessity Statement*: As per medicine Coding Level of Care Code Acute Code for g Fwd Diagnoses Primary hypertension I10 Hypertension type: primary hypertension Nicotine dependence, cigarettes, uncomplicated F17.210 Ischemic cardiomyopathy I25.5 CAD (coronary artery disease) I25.10 ST elevation myocardial infarction (STEMI) I21.3 Other chest pain R07.89 Chest pain type: other chest pain Acute on chronic systolic congestive heart failure I50.23
[2024-05-24] MEDS: atorvastatin 40 mg Tablet PO (17:21)
[2024-05-24] MEDS: metoprolol succinate ER (24 HR) 25 mg Tablet PO (17:23)
[2024-05-24] MEDS: bumetanide 1 mg Tablet PO (17:43)
[2024-05-24] MEDS: magnesium hydroxide 30 mL UDC PO (20:46)
[2024-05-24] MEDS: ondansetron 2 mg/ML SDV 2 mL 4 MG IVP (22:42)
[2024-05-25] VITALS (8 sets, daily range): BP systolic 105–119; BP diastolic 59–93; PULSE 93–106; RESP 12–23; TEMP 36.4–36.6; O2SAT 95–97
[2024-05-25] MEDS: colchicine 0.6 mg Tablet 1.2 MG PO (03:36)
[2024-05-25] MEDS: HYDROcodone-acetaminophen 5-325 mg Tablet 1 TAB PO (05:46)
[2024-05-25 06:07] LABS: Anion Gap 17.3 (5-19); Blood Urea Nitrogen 26 mg/dL (6-20); Calcium 9.7 mg/dL (8.5-10.5); Carbon Dioxide 28 mmol/L (22-29); Chloride 94 mmol/L (98-107); Creatinine Clr Calc Pharmacy 64.5798; Glomerular Filtration Rate 57.5 mL/min (90-130); Glucose 123 mg/dL (65-115); Osmolality Calculated 286 mOsm/kg (285-295); Potassium 4.3 mmol/L (3.5-5.1); Sodium 135 mmol/L (136-145)
[2024-05-25] MEDS: allopurinol 300 mg Tablet PO (08:26)
[2024-05-25] MEDS: magnesium oxide 400 mg tablet PO (08:26)
[2024-05-25] MEDS: clopidogrel 75 mg Tablet PO (08:26)
[2024-05-25] MEDS: pantoprazole DR 40 mg Tablet PO (08:26)
[2024-05-25] MEDS: aspirin 81 mg EC Tablet PO (08:26)
[2024-05-25] MEDS: potassium chloride ER 20 mEq Tablet PO (08:27)
[2024-05-25] MEDS: metoprolol succinate ER (24 HR) 25 mg Tablet PO (09:41)
[2024-05-25] MEDS: spironolactone 25 mg Tablet 12.5 MG PO (09:41)
[2024-05-25] MEDS: bumetanide 1 mg Tablet PO (09:41)
--- NOTE | 2024-05-25 10:22 | P.DS_ITS ---
Discharge Providers Date of Admission: 05/22/24 14:40 Date of Discharge: May 25, 2024 Attending Provider at Admission: Lisa Ramirez MD Attending Provider at Discharge: Damir Pagan MD Consults: Cardiology Dr. Ramirez Primary Care Provider: Soto Escamilla MD Diagnoses at Discharge Discharge Diagnosis (1) Ischemic cardiomyopathy: Details from hospital stay: Patient had volume overload with pleural effusion and elevated JVP furosemide 40 mg a day was changed to IV Bumex and now oral Bumex 1 mg twice a day. Spironolactone was added at 12.5 mg daily and Jardiance added at 10 mg daily. The lisinopril stopped in favor of losartan 12.5 mg daily. Coreg stopped in favor of metoprolol 25 mg XL daily due to tachycardia and hypotension EF has improved from 19% to 28 but he still needs to wear the defibrillator vest until EF is over 35% repeat echo planned in 90 days Status: Acute (2) CAD (coronary artery disease): Details from hospital stay: Patient had angiogram done on day of admission showing patent LAD and circumflex stents High-sensitivity C-reactive protein was 0.76. Given the gout attack he started on colchicine 0.6 mg daily Status: Acute (3) Acute on chronic systolic congestive heart failure: Details from hospital stay: Patient was diuresed and medications adjusted see above Status: Acute (4) Nicotine dependence, cigarettes, uncomplicated: Details from hospital stay: Patient is counseled that nicotine even and replacement patch or vaped form is still vasoactive and causes coronary artery disease. He is counseled to quit Status: Chronic Permanent problem details: Strongly advised to quit smoking (5) Chest pain: Details from hospital stay: Due to congestive heart failure and shortness of breath Status: Acute Qualifiers: Chest pain type: other chest pain Qualified Code(s): R07.89 - Other chest pain (6) Gout attack: Details from hospital stay: Uric acid was 9. Continue allopurinol 300 mg daily add colchicine 0.6 mg daily Status: Acute Reason for Visit Reason for Visit: stemi Brief History: Vivek Corral is a 53 year old male with a history of ischemic cardiomyopathy who came to an orthopedic visit today and developed severe chest pain and shortness of breath. Lifevest was in place. Rapid response was called and patient was brought to the ER. In the ER patient's initial EKG had a question of subtotal ST elevation in V2 and V3. Patient was complaining worsening chest pain and repeat EKG showed progression of the ST elevation. He stated he may have missed taking his Plavix. Due to the fact that he was reporting severe shortness of breath and chest pain, possible medication noncompliance, he was taken to the [facility] immediately. He received Plavix aspirin and heparin as well as morphine and Zofran in the ED. Heart cath showed left ventricular ejection fraction of 20% with global hypokinesis. Left main was not normal, LAD had luminal irregularities without significant stenosis and previously placed LAD stent was patent, left circumflex did not have any blockage, RCA was without stenosis. Left ventricular end-diastolic pressure was 39. Hospital Course Hospital Course Patient was treated with IV Bumex 1 mg twice a day potassium and magnesium were replaced. Medication adjustments including addition of Jardiance and spironolactone were made. His blood pressure was soft and so Coreg was stopped in favor of metoprolol and his HARDY inhibitor stopped but ARB continued at 12.5 mg losartan daily Echo shows improvement in his EF to 28% but he still needs to wear his defibrillator vest until EF is 35 Chest x-ray showed improvement of his pleural effusion and vascular congestion with diuresis Physical Exam Narrative: General Well-developed well-nourished male in no acute cardiopulmonary stress CV regular rate and rhythm Lungs are to auscultation bilaterally trace crackles right base improved with deep breaths Abdomen positive bowel sounds soft nontender Calves no tenderness or pedal edema Left knee mild inflammation Discharge Data Studies Completed and Pending Completed Studies During Hospitalization Category Date Time Status XR chest 1V portable [id number] Routine Exams 05/23/24 08:30 Completed CV. echo limited [id number] Routine Ultrasound 05/24/24 08:59 Completed Pending at discharge Category Date Time Status [employer] request for service Routine Exams 05/22/24 13:49 Taken Lipoprotein (a) Routine Lab 05/24/24 04:50 Received Radiology Impressions Chest X-Ray 05/23/24 08:30 IMPRESSION: Cardiomegaly. Right lower hemithorax abnormality as above. No findings of acute congestive heart failure. Laboratory Results WBC 12.93 10^3/uL (3.29-11.43) H 05/23/24 02:56 RBC 4.45 10^6/uL (3.85-5.65) 05/23/24 02:56 Hgb 11.70 g/dL (11.27-16.99) 05/23/24 02:56 Hct 38.3 % (37-53) 05/23/24 02:56 MCV 86.1 fl (82-101) 05/23/24 02:56 MCH 26.3 pg (27-33) L 05/23/24 02:56 MCHC 30.5 g/dL (30-55) 05/23/24 02:56 RDW 17.0 % (12.1-15.1) H 05/23/24 02:56 Plt Count 350 10^3/cmm (157-399) 05/23/24 02:56 MPV 9.9 fL (7.4-10.4) 05/23/24 02:56 Neut % (Auto) 69.5 % 05/23/24 02:56 Lymph % (Auto) 20.7 % 05/23/24 02:56 [place] % (Auto) 8.3 % 05/23/24 02:56 Eos % (Auto) 0.8 % 05/23/24 02:56 Baso % (Auto) 0.2 % 05/23/24 02:56 Neut # (Auto) 8.99 10^3/uL (1.8-7.7) H 05/23/24 02:56 Lymph # (Auto) 2.7 10^3/uL (0.8-4.8) 05/23/24 02:56 [place] # (Auto) 1.1 10^3/uL (0.2-0.9) H 05/23/24 02:56 Eos # (Auto) 0.1 10^3/uL (0.0-0.8) 05/23/24 02:56 Baso # (Auto) 0.0 10^3/uL (0.0-0.1) 05/23/24 02:56 Nucleated RBC % (auto) 0 % 05/23/24 02:56 Nucleated RBCs # 0.0 /100WBC 05/23/24 02:56 APTT 27.3 SECONDS (23.9-36.7) 05/22/24 17:06 Specimen Type Arterial 05/22/24 13:21 Sample Site Radial, right 05/22/24 13:21 ABG pH 7.43 (7.35-7.45) 05/22/24 13:21 ABG pCO2 37.6 mmHg (35-45) 05/22/24 13:21 ABG pO2 65.7 mmHg (80.0-100.0) L 05/22/24 13:21 ABG PO2/FiO2 Ratio 312 05/22/24 13:21 ABG HCO3 25.1 mmol/L (22-26) 05/22/24 13:21 ABG O2 Saturation 93.4 05/22/24 13:21 ABG Base Excess 1.0 mmol/L (-2.0-2.0) 05/22/24 13:21 Ignacio Test Pos 05/22/24 13:21 A-a O2 Gradient 5.1 mmHg (5-10) 05/22/24 13:21 Hematocrit 38.8 % (42-52) L 05/22/24 13:21 Hgb O2 Saturation 91.4 % (95-100) L 05/22/24 13:21 Carboxyhemoglobin 1.3 %THgb (0.4-20.1) 05/22/24 13:21 Methemoglobin 0.9 % (0.4-1.5) 05/22/24 13:21 Total Hemoglobin 12.7 g/dL (14-18) L 05/22/24 13:21 Sodium 139.0 mmol/L (131-143) 05/22/24 13:21 Potassium 4.3 mmol/L (3.5-5.0) 05/22/24 13:21 Glucose 148.0 mg/dL (70-115) H 05/22/24 13:21 Ionized Calcium 1.3 mmol/L (1.1-1.4) 05/22/24 13:21 O2 Delivery Device Room air 05/22/24 13:21 FiO2 21.0 % 05/22/24 13:21 Bottle Sorter ID [place] 05/22/24 13:21 Sodium 135 mmol/L (136-145) L 05/25/24 05:45 Potassium 4.3 mmol/L (3.5-5.1) 05/25/24 05:45 Chloride 94 mmol/L (98-107) L 05/25/24 05:45 Carbon Dioxide 28 mmol/L (22-29) 05/25/24 05:45 Anion Gap 17.3 (5-19) 05/25/24 05:45 BUN 26 mg/dL (6-20) H 05/25/24 05:45 Creatinine 1.3 mg/dL (0.7-1.2) H 05/25/24 05:45 GFR Calculation 57.5 mL/min (90-130) L 05/25/24 05:45 Glucose 123 mg/dL (65-115) H 05/25/24 05:45 Calculated Osmolality 286 mOsm/kg (285-295) 05/25/24 05:45 Uric Acid 9.6 mg/dL (3.4-7.0) H 05/24/24 04:50 Calcium 9.7 mg/dL (8.5-10.5) 05/25/24 05:45 Magnesium 1.9 mg/dL (1.7-2.3) 05/23/24 02:56 Total Bilirubin 0.7 mg/dL (0.15-1.2) 05/22/24 13:15 AST 18 U/L (0-40) 05/22/24 13:15 ALT 10 U/L (0-41) 05/22/24 13:15 Alkaline Phosphatase 153 U/L (40-130) H 05/22/24 13:15 Troponin T Baseline 38 ng/L (0-15) H 05/22/24 13:15 Troponin T 120 Minute 32.37 ng/L (0-15) H 05/22/24 17:06 Delta Troponin T -5.63 ABS# (0-10) L 05/22/24 17:06 Troponin T Hi Sens 6Hr 28.85 ng/L (0-15) H 05/22/24 19:45 Troponin T Hi Sens 6Hr Delta -9.15 ng/L (0-12) L 05/22/24 19:45 C-React Prot High Sens 0.760 mg/dL (0.0-0.3) H 05/24/24 04:50 Total Protein 8.8 g/dL (6.6-8.7) H 05/22/24 13:15 Albumin 4.7 g/dL (3.5-5.2) 05/22/24 13:15 Globulin 4.1 g/dL (1.3-4.6) 05/22/24 13:15 Urine Opiates Screen Positive ng/mL (Negative) H 05/24/24 11:45 Ur Barbiturates Screen Negative ng/mL (Negative) 05/24/24 11:45 Ur Phencyclidine Scrn Negative ng/mL (Negative) 05/24/24 11:45 Ur Amphetamines Screen Negative ng/mL (Negative) 05/24/24 11:45 U Benzodiazepines Scrn Positive ng/mL (Negative) H 05/24/24 11:45 Urine Cocaine Screen Negative ng/mL (Negative) 05/24/24 11:45 U Marijuana (THC) Screen Negative ng/mL (Negative) 05/24/24 11:45 Vitals Last Vital Signs Temp 97.8 F 05/25/24 04:00 Pulse 101 H 05/25/24 06:00 Resp 12 05/25/24 05:00 BP 119/88 05/25/24 06:00 Pulse Ox 95 05/25/24 04:00 O2 Del Method Room Air 05/25/24 04:00 Discharge Plan Discharge Patient Disposition: Home Condition: Stable Prescriptions: New Jardiance 10 mg tablet 10 mg PO DAILY Qty: 30 0RF acetaminophen 325 mg Tablet 650 mg PO Q6H PRN (Reason: Mild Pain) Qty: 100 0RF potassium chloride [Klor-Con M20] 20 mEq Tablet,Er Particles/Crystals 20 meq PO BID Qty: 60 0RF magnesium oxide 400 mg (241.3 mg magnesium) Tablet 400 mg PO DAILY Qty: 30 0RF bumetanide 1 mg Tablet 1 mg PO BID Qty: 60 0RF spironolactone 25 mg Tablet 12.5 mg PO DAILY Qty: 30 0RF colchicine 0.6 mg tablet 0.6 mg PO DAILY Qty: 30 0RF metoprolol succinate 25 mg tablet extended release 24 hr 25 mg PO DAILY Qty: 30 0RF Continued atorvastatin 40 mg tablet 40 mg PO QPM clopidogrel 75 mg tablet 75 mg PO DAILY aspirin 81 mg tablet,delayed release (DR/EC) 81 mg PO DAILY pantoprazole 40 mg tablet,delayed release (DR/EC) 40 mg PO DAILY losartan 25 mg tablet 12.5 mg PO DAILY nitroglycerin 0.4 mg tablet, sublingual 0.4 mg sublingual PRN PRN (Reason: Pain) allopurinol 300 mg tablet 300 mg PO DAILY Discontinued furosemide 40 mg tablet 40 mg PO DAILY colchicine 0.6 mg tablet 2 mg PO ONCE PRN (Reason: gout) carvedilol 3.125 mg tablet 3.125 mg PO BID ramipril 10 mg capsule 10 mg PO DAILY Discharge Orders: Discharge Order (Routine); Ordered 05/25/24 Ordered By: Damir Pagan Referrals: Soto Escamilla MD [Physician] - 1 week Darlyn Page FNP [Nurse Practitioner] - 1 week Discharge Diet: Cardiac, Diabetic and Low Cholesterol Discharge Activity: Increase activity as tolerated Patient Instructions: Heart Failure (DC), Opioid Safety Activity Restrictions/Additional Instructions: Weigh yourself on arrival home and unclothed and then daily Your weight today is your dry weight. Take your diuretics and medications as prescribed. As you lose weight your weight should not be higher than it is today If you are gaining water weight despite your diuretics call your physician to discuss taking additional diuretics Do not use methamphetamines at all Do not drink more than 1 alcoholic beverage in a week Stop smoking and nicotine replacement in all forms as it is bad for your coronary arteries Return if you have chest pain or dizziness with standing If you gain more than 3 pounds of water weight you need to take additional diuretics If you lose more than 5 pounds water weight and are dizzy then you need to take less diuretics Call your physician or mine engineering manager with any questions Discharge Attestations Time Spent in Discharge Care*: greater than 30 min Time Spent in Smoking Cessation: 5 minutes spent in counseling for smokin g cessation and nicotine cessation Status at Discharge: Cognitive status at discharge: cognitively intact , Behavioral status at discharge: cooperative , Quality Metrics Clinical Quality Measures [ No reported AMI, CVA or VTE this stay] Coding Level of Care Code 89541 Diagnoses Ischemic cardiomyopathy I25.5 CAD (coronary artery disease) I25.10 Acute on chronic systolic congestive heart failure I50.23 Nicotine dependence, cigarettes, uncomplicated F17.210 Other chest pain R07.89 Chest pain type: other chest pain Gout attack M10.9 Time Spent (min) 55
--- NOTE | 2024-05-25 11:58 | PC.NURSE ---
Discharged patient. Reviewed new mediations, discontinued medications, upcoming appointments. Unable to make appointments with primary care and cardiology on sunday, message left with offices, provided the patient their phone numbers and advised to call them to confirm appointments. IV removed. Patient's mode of transport will be a lyft ride arranged by medicaid, did not want to wait in ICU, patient went out to wait for lyft in the lobby. Lyft was provided his phone number. Patient encouraged to come back to us if he has any problem with transport. Patient's medication was sent to [facility] pharmacy. Nurse encouraged patient to use [facility] for his pharmacy this once because they are the only pharmacy in town open on sunday, and with the forecast weather he may have issues getting to [facility] the next few days. Patient did not want to change and had medications sent to [facility].
[2024-05-28 23:41] LABS: Lipoprotein (a) 228 nmol/L (<75)
== END 2024-05-25 11:40 | disposition home or self-care (01) | DRG 280 ==
LOC: ER 13:48 → CCL 13:49 → ICU 14:46
PROVIDERS: Admitting Provider Internal Medicine Cardiovascular Disease; Emergency Provider Family Medicine; Visit Provider Internal Medicine
PROC: 4A023N7 Measurement of Cardiac Sampling and Pressure, Left Heart, Percutaneous Approach (ICD-10-PCS; principal; 2024-05-22 13:50)
DX: I21.3 ST elevation (STEMI) myocardial infarction of unspecified site (principal); I50.23 Acute on chronic systolic (congestive) heart failure; F31.89 Other bipolar disorder; I25.5 Ischemic cardiomyopathy; I25.10 Atherosclerotic heart disease of native coronary artery without angina pectoris; I11.0 Hypertensive heart disease with heart failure; F17.210 Nicotine dependence, cigarettes, uncomplicated; M10.9 Gout, unspecified; T45.526A Underdosing of antithrombotic drugs, initial encounter; Z91.148 Patient's other noncompliance with medication regimen for other reason; M47.812 Spondylosis without myelopathy or radiculopathy, cervical region; Z95.5 Presence of coronary angioplasty implant and graft; Z79.82 Long term (current) use of aspirin; Z79.02 Long term (current) use of antithrombotics/antiplatelets
CPT/HCPCS: 36415; 36600; 71045; 80048; 80051; 80053; 80306; 82330; 82805; 83695; 83735; 84484; 84550; 85025; 85730; 86141; 93005; 93308; 93458; 96365; 96366; 96374; 96375; 96376; 99152; 99285; C1769; C1887; C1894; J1644; J1940; J2250; J2270; J2405; J3010; J3490; J7030; Q9967

== ENCOUNTER 2024-05-27 08:58 | Emergency (ER) | payer MEDICAID, SELFPAY ==
[2024-05-15 13:16] VITALS: BP 106/69; BMI 29.4
[2024-05-27] VITALS (14 sets, daily range): BP systolic 75–100; BP diastolic 52–78; PULSE 79–96; RESP 14–31; TEMP 36.3; O2SAT 92–100; BMI 28.7
--- NOTE | 2024-05-27 08:59 | ECG_ITS ---
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 Measurements Intervals [place] Rate: 97 P: 55 [place]: 152 QRS: -9 QRSD: 92 T: 125 QT: 391 QTc: 497 Interpretive Statements SINUS RHYTHM LOW QRS VOLTAGE IN PRECORDIAL LEADS [QRS DEFLECTION < 1.0 mV IN CHEST LEADS] SEPTAL MYOCARDIAL INFARCTION , OF INDETERMINATE AGE [40+ ms Q WAVE IN V1/V2] Compared to ECG 05/24/2024 06:31:34 Low QRS voltage now present Myocardial infarct finding now present Sinus tachycardia no longer present T-wave abnormality no longer present Possible ischemia no longer present Electronically Signed On 05-29-2024 17:54:57 WEAPONS OFFICER by Pranay Alcocer M.D. [email or web address]
--- NOTE | 2024-05-27 08:59 | XR_ITS ---
WS: [id number] Exam: XR chest 1V portable [id number] Date/Time of Exam: 05/27/2024 9:01 AM Reason For Exam: chest pain Comparison 05/23/2024. Small RIGHT basal pleural effusion unchanged. Mild cardiac enlargement stable. No consolidating infiltrates are identified. Chronic interstitial changes. Extensive fusion hardware in the lower C-spine. XR/XR chest 1V portable [id number] IMPRESSION: 1. Small RIGHT basal pleural effusion unchanged. 2. Cardiac enlargement stable.
--- NOTE | 2024-05-27 09:12 | W.ED.CHESTPA ---
HPI - Chest Pain General: Chief Complaint: Chest Pain Stated Complaint: Chest Pain, SOB Time Seen by Provider: 05/27/24 08:59 Source: patient Mode of arrival: EMS Limitations: no limitations History of Present Illness: Patient is a 53-year-old male with an extensive past medical history here complaining of shortness of breath and chest pain. He states symptoms started when he awoke this morning. Patient was recently admitted to the hospital and recently discharged. He was seen in the ED at that time and had a STEMI alert called and was subsequently taken to the [facility]. His heart cath showed left ventricular ejection fraction of 20% with global hypokinesis. LAD without significant stenosis and previous placed LAD stent was patent. Left circumflex did not have any blockage. RCA was without stenosis. Patient has a history of ischemic cardiomyopathy. His EF did improve from 19 to 28%. He wears a defibrillator vest. History of CHF on diuresis. Patient states he two Valium this morning to help with symptoms as he also has a history of anxiety. Somewhat drowsy upon arrival. MD complaint: chest pain and other (dyspnea) Pertinent past history: coronary artery disease Onset (ago): hour(s) Timing of current episode: constant Prior episodes: Yes Onset: during rest and awoke with symptoms Pain location: substernal Pain radiation: none Severity: moderate Relieving factors: nothing Exacerbating factors: nothing Associated symptoms: Reports dyspnea; Deny abdominal pain, fever(s), palpitations, syncope or vomiting Treatment prior to arrival: nitroglycerin Risk Factors: Coronary artery disease risk factors: diabetes Thoracic aortic dissection risk factors: none Related Data Home Medications ?Medication ?Instructions ?Recorded ?Confirmed allopurinol 300 mg tablet 300 mg PO DAILY 05/22/24 05/27/24 aspirin 81 mg tablet,delayed 81 mg PO DAILY 05/22/24 05/27/24 release atorvastatin 40 mg tablet 40 mg PO QPM 05/22/24 05/27/24 clopidogrel 75 mg tablet 75 mg PO DAILY 05/22/24 05/27/24 losartan 25 mg tablet 12.5 mg PO DAILY 05/22/24 05/27/24 nitroglycerin 0.4 mg sublingual 0.4 mg sublingual PRN PRN Pain 05/22/24 05/27/24 tablet pantoprazole 40 mg tablet,delayed 40 mg PO DAILY 05/22/24 05/27/24 release Previous Rx's ?Medication ?Instructions ?Recorded acetaminophen 325 mg tablet 650 mg (2 x 325 mg) PO Q6H PRN 05/25/24 Mild Pain #100 tabs bumetanide 1 mg tablet 1 mg PO BID #60 tabs 05/25/24 colchicine 0.6 mg tablet 0.6 mg PO DAILY #30 tabs 05/25/24 empagliflozin 10 mg tablet 10 mg PO DAILY #30 tabs 05/25/24 (Jardiance) magnesium oxide 400 mg (241.3 mg 400 mg PO DAILY #30 tabs 05/25/24 magnesium) tablet metoprolol succinate 25 mg 25 mg PO DAILY #30 tabs 05/25/24 tablet,extended release 24 hr potassium chloride 20 mEq 20 meq PO BID #60 tabs 05/25/24 tablet,extended release(part/cryst) (Klor-Con M) Held on 05/27/24. Instructions: Resume on 05/30/24. spironolactone 25 mg tablet 12.5 mg (1/2 x 25 mg) PO DAILY #30 05/25/24 tabs Allergies Allergy/AdvReac Type Severity Reaction Status Date / Time adhesive tape Allergy Intermediate rash Verified 05/23/24 09:18 sulfamethoxazole (From Allergy SWOLLEN Verified 05/23/24 09:18 Septra) TONGUE trimethoprim (From ) Allergy SWOLLEN Verified 05/23/24 09:18 TONGUE Review of Systems Const: Denies: fever(s), chills, body aches, fatigue or malaise Card: Reports: chest pain; Denies: palpitations, irregular heart rhythm, syncope or pre-syncope Resp: Reports: dyspnea; Denies: wheezing, hemoptysis or chest congestion GI: Denies: abdominal pain, vomiting or diarrhea : Denies: flank pain, difficulty urinating, dysuria, urinary frequency or urinary urgency Skin/Breast: Denies: rash Neuro: Denies: headache(s) or dizziness PFSH ED PFSH: Medical History Chest pain ST elevation myocardial infarction (STEMI) Gout attack Degenerative joint disease (DJD) of lumbar spine DJD (degenerative joint disease) of cervical spine Anesthesia complication prolonged sedation after anesthesia 06/26/2022 requiring ICU monitoring but no other intervention, not responsive to narcan; took 5-6 hours to wake up after surgery. Only thing identified is he had not slept for several days prior to surgery. Chronic migraine Depression Prediabetes History of narcotic use with prior pain treatment contract, not using regular narcotic pain control as of 06/26/2022 History of psychiatric care Acute encephalopathy Hypertension GERD (gastroesophageal reflux disease) Hyperlipidemia History of electroencephalogram 11/04/20 This was a normal routine EEG, awake and drowsy and asleep, with no behavioral or electrographic epileptiform activity. This patient was excessively sleepy and was not sleep deprived. Consider a sleep disorder if clinically appropriate. Bipolar disorder Gout [place] tick fever History of Holter monitoring 09/2019 baseline sinus tachycardia with heart rate of 135 bpm, no pauses or bradycardia, diminished heart rate variability 12/2019 baseline sinus rhythm at 94 bpm, symptomatic sinus tachycardia with heart rate 72-126 bpm Psychiatric care Hyperparathyroidism s/p partial parathyroidectomy Bleeding per rectum Had anoscope done by Dr Garcia 08/30/2020 with no fistulae, sinuses, induration, abscess formation or fissures = normal findings Other stimulant dependence, in remission prior methamphetamine use Bilateral renal stones Has seen Dr Bhatti in past, non-obstructive, remote lithotripsy, otherwise monitored for symptoms Cervical disc disease With cervical radiculopathy, spondylosis, spondylosis with myelopathy B12 deficiency 09/2019 Generalized anxiety disorder Cannabis dependence, uncomplicated history, unknown if still using as of 06/26/2022 Carpal tunnel syndrome, left upper limb by nerve conduction study performed 05/2019, has not had surgery as of 06/26/2022 Surgical History Status post cervical discectomy 06/26/2022 Dr Mcghee anterior cervical discectomy C4/C5 with insertion of cage, instrumentation with anterior plate C4-C5, with C4-C7 posterior fusion and instrumentation, use of allograft History of esophagogastroduodenoscopy (EGD) 2016 History of colonoscopy 2016 S/P extracorporeal shock wave therapy History of parathyroidectomy partial, performed by Dr Henderson, never followed-up after surgery History of lumbar laminectomy 09/01/2020 Dr Mcghee L4/5 with bilateral partial facetectomy History of neck surgery 03/24/2020 Dr Mcghee Anterior discectomy with insertion of cage/instrumentation/use of allograft and anterior plate at C5/6 & C6/7 History of cholecystectomy History of knee surgery Left knee arthroscopy 08/[address] Campbell, had MRSA Family History Brother Hypertension Valvular heart disease Grandfather Hypertension History of open heart surgery Father History of open heart surgery Social History Smoking and tobacco/nicotine status: current every day tobacco/nicotine user cigarettes Years cigarettes smoked: 35 Alcohol intake: current Alcohol intake frequency: few times a week Alcohol type: beer Substance/Drug Use: former Household members: other Details: lives with mother who is a former [employer] nurse Marital status: Current occupational status: unemployed and disabled Physical Exam Const: COMMON NORMALS: no acute distress, no limitations, alert and well nourished GENERAL APPEARANCE: cooperative and appears older than stated age ORIENTATION/CONSCIOUSNESS: Yes awake, Yes oriented to person, Yes oriented to place and Yes oriented to time OTHER: somewhat drowsy; anxious/hyperventilating at times Neck/C-Spine: COMMON NORMALS: no JVD GENERAL: Yes normal visual inspection Chest: COMMONS NORMALS: normal inspection of the chest and normal palpation of entire chest wall Resp: COMMON NORMALS: normal respiratory effort and clear to auscultation bilaterally AUSCULTATION: clear to auscultation bilaterally Cardio: COMMON NORMALS: no JVD, regular rate and regular rhythm RATE: regular rate RHYTHM: regular rhythm GI: COMMON NORMALS: Normal to inspection, nondistended, normoactive bowel sounds present, Soft to palpation and no masses PALPATION: Yes Soft to palpation Extremity: COMMON NORMALS: no clubbing, cyanosis or edema, no calf tenderness and no pedal edema GENERAL: Yes normal exam except as noted Neuro: ANTWON COMA SCALE: document GCS findings Antw[place] coma scale eye opening: Spontaneous [place] coma scale verbal response: Orientated [place] coma scale motor response: Obey commands Antwon coma scale total score: 15 COMMON NORMALS: moves all extremities, no focal motor deficits and no sensory deficits noted SENSORIUM/ORIENTATION: Yes alert, Yes oriented to person, Yes oriented to place and Yes oriented to time Course Vital Signs: Vital signs: Vital Signs Temperature 97.4 F L 05/27/24 08:58 Pulse Rate 87 05/27/24 12:15 Respiratory Rate 18 05/27/24 12:15 Blood Pressure 100/67 05/27/24 12:15 Pulse Oximetry 100 05/27/24 12:15 Oxygen Delivery Me thod Room Air 05/27/24 12:15 MDM - Chest Pain Medical Decision Making Patient is a 53-year-old male who is well-known here in our emergency department presenting with a complaint of chest pain and shortness of breath. Patient was recently admitted to our facility and just discharged 48 hours ago. Upon arrival he was anxious and hyperventilating at times. He states he did take his Valium prior to arrival to help with his anxiety. Vital signs stable upon arrival. He has been fairly hypotensive throughout his stay which is not abnormal for him looking at previous documentation. During his last hospitalization patient underwent cardiac catheterization without intervention and echocardiogram which showed an improving ejection fraction (he is still instructed to wear his defibrillator vest). On today's emergency visit workup, his baseline troponin was 24 with a negative delta. His BNP is at baseline. CXR unchanged from previous. Clinically he does not appear overloaded. He is not requiring oxygen. BUN and creatinine are at baseline. He was slightly hyperkalemic at 5.6. No EKG changes. He was given kayexalate and calcium gluconate for this. Had originally discussed possible admission with hospitalist, Dr. Mckeon who had recommended PE rule out given his chest pain, shortness of breath, and hypotension. This was obtained and unremarkable. Upon repeat examination, patient appears much improved. He is no longer complaining of chest pain or shortness of breath. I feel his dyspnea was most likely anxiety induced. Blood pressure has been stable on repeat examination was 100/67. He has cardiology follow-up in a few weeks. Patient feels comfortable going home at this time. Return to ED precautions discussed. Medical Records I reviewed the patient's medical records. Lab Data I reviewed the patient's lab results. 05/27/24 08:29 05/27/24 08:29 Radiology Impressions Chest X-Ray 05/27/24 08:59 IMPRESSION: 1. Small RIGHT basal pleural effusion unchanged. 2. Cardiac enlargement stable. Chest CTA 05/27/24 11:49 IMPRESSION: 1. No pulmonary embolism. 2. New small RIGHT pleural effusion. 3. Markedly enlarged LEFT heart as on the prior study. 4. Mild interstitial/pulmonary edema. No pneumonia. Laboratory Results WBC 9.95 10^3/uL (3.29-11.43) 05/27/24: RBC 4.51 10^6/uL (3.85-5.65) 05/27/24 08: Hgb 12.10 g/dL (11.27-16.99) 05/27/24 08: Hct 40.3 % (37-53) 05/27/24: MCV 89.4 fl (82-101) 05/27/24 08: MCH 26.8 pg (27-33) L 05/27/24 08: MCHC 30.0 g/dL (30-55) 05/27/24: RDW 17.4 % (12.1-15.1) H 05/27/24 08: Plt Count 377 10^3/cmm (157-399) 05/27/24: MPV 10.3 fL (7.4-10.4) 05/27/24: Neut % (Auto) 51.6 % 05/27/24 08: Lymph % (Auto) 37.3 % 05/27/24 08: [place] % (Auto) 8.6 % 05/27/24: Eos % (Auto) 1.9 % 05/27/24: Baso % (Auto) 0.2 % 05/27/24: Neut # (Auto) 5.13 10^3/uL (1.8-7.7) 05/27/24: Lymph # (Auto) 3.7 10^3/uL (0.8-4.8) 05/27/24 08: [place] # (Auto) 0.9 10^3/uL (0.2-0.9) 05/27/24: Eos # (Auto) 0.2 10^3/uL (0.0-0.8) 05/27/24: Baso # (Auto) 0.0 10^3/uL (0.0-0.1) 05/27/24 08: Nucleated RBC % (auto) 0 % 05/27/24: Nucleated RBCs # 0.0 /100WBC 05/27/24 08:29 Sodium 140 mmol/L (136-145) 05/27/24 08:29 Potassium 5.6 mmol/L (3.5-5.1) H 05/27/24 08:29 Chloride 101 mmol/L (98-107) 05/27/24 08:29 Carbon Dioxide 26 mmol/L (22-29) 05/27/24 08: Anion Gap 18.6 (5-19) 05/27/24 08: BUN 22 mg/dL (6-20) H 05/27/24 08:29 Creatinine 1.3 mg/dL (0.7-1.2) H 05/27/24 08:29 GFR Calculation 57.5 mL/min (90-130) L 05/27/24 08: Glucose 152 mg/dL (65-115) H 05/27/24 08:29 Calculated Osmolality 296 mOsm/kg (285-295) H 05/27/24 08: Calcium 9.9 mg/dL (8.5-10.5) 05/27/24 08: Total Bilirubin 0.5 mg/dL (0.15-1.2) 05/27/24 08:29 AST 19 U/L (0-40) 05/27/24 08:29 ALT 11 U/L (0-41) 05/27/24 08:29 Alkaline Phosphatase 145 U/L (40-130) H 05/27/24 08:29 Troponin T Baseline 24 ng/L (0-15) H 05/27/24 08: Troponin T 120 Minute 21.55 ng/L (0-15) H 05/27/24 10:44 Delta Troponin T -2.45 ABS# (0-10) L 05/27/24 10:44 NT-Pro-B Natriuret Pep 5678 pg/mL (0-125) H 05/27/24 08:29 Total Protein 7.7 g/dL (6.6-8.7) 05/27/24 08: Albumin 4.4 g/dL (3.5-5.2) 05/27/24 08: Globulin 3.3 g/dL (1.3-4.6) 05/27/24 08:29 Urine Opiates Screen Negative ng/mL (Negative) 05/27/24 10:17 Ur Barbiturates Screen Negative ng/mL (Negative) 05/27/24 10:17 Ur Phencyclidine Scrn Negative ng/mL (Negative) 05/27/24 10:17 Ur Amphetamines Screen Negative ng/mL (Negative) 05/27/24 10:17 U Benzodiazepines Scrn Positive ng/mL (Negative) H 05/27/24 10:17 Urine Cocaine Screen Negative ng/mL (Negative) 05/27/24 10:17 U Marijuana (THC) Screen Negative ng/mL (Negative) 05/27/24 10:17 All radiology interpretation(s) finalized by discharge Discharge Plan Discharge Patient Disposition: Home Clinical Impression: Ischemic cardiomyopathy Chest pain Qualifiers: Chest pain type: unspecified Qualified Code(s): R07.9 - Chest pain, unspecified Condition: Stable Prescriptions: Held potassium chloride [Klor-Con M20] 20 mEq Tablet,Er Particles/Crystals 20 meq PO BID Qty: 60 0RF Hold Instructions: Resume on 05/30/24. No Action atorvastatin 40 mg tablet 40 mg PO QPM clopidogrel 75 mg tablet 75 mg PO DAILY aspirin 81 mg tablet,delayed release (DR/EC) 81 mg PO DAILY pantoprazole 40 mg tablet,delayed release (DR/EC) 40 mg PO DAILY losartan 25 mg tablet 12.5 mg PO DAILY nitroglycerin 0.4 mg tablet, sublingual 0.4 mg sublingual PRN PRN (Reason: Pain) allopurinol 300 mg tablet 300 mg PO DAILY spironolactone 25 mg Tablet 12.5 mg PO DAILY Qty: 30 0RF bumetanide 1 mg Tablet 1 mg PO BID Qty: 60 0RF acetaminophen 325 mg Tablet 650 mg PO Q6H PRN (Reason: Mild Pain) Qty: 100 0RF magnesium oxide 400 mg (241.3 mg magnesium) Tablet 400 mg PO DAILY Qty: 30 0RF colchicine 0.6 mg tablet 0.6 mg PO DAILY Qty: 30 0RF Jardiance 10 mg tablet 10 mg PO DAILY Qty: 30 0RF metoprolol succinate 25 mg tablet extended release 24 hr 25 mg PO DAILY Qty: 30 0RF Discharge Orders: Discharge ED (Routine); Ordered 05/27/24 Ordered By: Jena Messina Activity Restrictions/Additional Instructions: As we discussed, your emergency department workup here was overall fairly benign. Your potassium was slightly high. You were given medications for this. I do not want you taking your home potassium over the next 3 days. You can resume on 05/30. You have follow-up with cardiology currently scheduled for 06/09. As we discussed, continue to monitor blood pressure at home. You may return to the emergency department for any further concerns you may have. Print Language: Ug[place]an Coding Level of Care Code ED Substance Abuse Clinician for Caty Juarez
--- NOTE | 2024-05-27 09:44 | PC.PHAR ---
patient wouldnt respond to my questions, patient just discharged 3 days ago went of discharge list
[2024-05-27 09:50] LABS: Basophils % 0.2 %; Eosinophils # 0.2 10^3/uL (0.0-0.8); Eosinophils % 1.9 %; Hematocrit 40.3 % (37-53); Lymphocytes # 3.7 10^3/uL (0.8-4.8); Lymphocytes % 37.3 %; Mean Corpuscular Hemoglobin 26.8 pg (27-33); Mean Corpuscular Volume 89.4 fl (82-101); Mean Platelet Volume 10.3 fL (7.4-10.4); Monocytes # 0.9 10^3/uL (0.2-0.9); Monocytes % 8.6 %; Neutrophils # 5.13 10^3/uL (1.8-7.7); Neutrophils % 51.6 %; Nucleated Red Blood Cells % 0 %; Platelet Count 377 10^3/cmm (157-399); Red Blood Count 4.51 10^6/uL (3.85-5.65); Red Cell Distribution Width 17.4 % (12.1-15.1); White Blood Count 9.95 10^3/uL (3.29-11.43)
[2024-05-27] MEDS: sodium chloride 0.9% 500 ML 999 ML IV (10:14)
[2024-05-27 10:26] LABS: Troponin(5th) Baseline 24 ng/L (0-15)
[2024-05-27 10:38] LABS: Alanine Aminotransferase 11 U/L (0-41); Albumin Level 4.4 g/dL (3.5-5.2); Alkaline Phosphatase 145 U/L (40-130); Blood Urea Nitrogen 22 mg/dL (6-20); Calcium 9.9 mg/dL (8.5-10.5); Carbon Dioxide 26 mmol/L (22-29); Chloride 101 mmol/L (98-107); Creatinine Clr Calc Pharmacy 64.8451; Globulin 3.3 g/dL (1.3-4.6); Glomerular Filtration Rate 57.5 mL/min (90-130); Glucose 152 mg/dL (65-115); NT Pro B Type Natriuretic Pept 5678 pg/mL (0-125); Osmolality Calculated 296 mOsm/kg (285-295); Sodium 140 mmol/L (136-145); Total Bilirubin 0.5 mg/dL (0.15-1.2); Total Protein 7.7 g/dL (6.6-8.7)
[2024-05-27 10:41] LABS: Amphetamines Screen Urine Negative (Negative); Barbiturates Screen Urine Negative (Negative); Benzodiazepines Screen Urine Positive (Negative); Cocaine Screen Urine Negative (Negative); Opiate Screen Urine Negative (Negative); PCP Screen Urine Negative (Negative); THC Screen Urine Negative (Negative)
--- NOTE | 2024-05-27 10:44 | ECG_ITS ---
[facility] Test Date: 2024-05-27 Pat Name: Vivek Corral Department: Room: Gender: Male Cafe Lead: : 1970 Requested By: Jena Messina Order Number: [id number] Reading MD: Measurements Intervals [place] Rate: 85 P: 52 CA: 180 QRS: -12 QRSD: 97 T: 150 QT: 425 QTc: 507 Interpretive Statements SINUS RHYTHM LOW QRS VOLTAGE IN PRECORDIAL LEADS [QRS DEFLECTION < 1.0 mV IN CHEST LEADS] SEPTAL MYOCARDIAL INFARCTION , PROBABLY OLD [40+ ms Q WAVE IN V1/V2] [id number]
[2024-05-27 10:45] LABS: Anion Gap 18.6 (5-19); Aspartate Amino Transferase 19 U/L (0-40); Potassium 5.6 mmol/L (3.5-5.1)
[2024-05-27] MEDS: sodium polystyrene sulfonate 15 gm/60 mL Btl PO (11:12)
[2024-05-27] MEDS: calcium gluconate 0.9% NaCL 1 GM/50 ML PREMIX IV (11:14)
[2024-05-27 11:21] LABS: Troponin 5 2HR 21.55 ng/L (0-15)
[2024-05-27 11:23] LABS: Troponin 5 2HR Delta -2.45 ABS# (0-10)
--- NOTE | 2024-05-27 11:49 | CT_ITS ---
WS: [id number] CT CHEST ANGIOGRAPHY WITH REFORMATS HISTORY: chest pain, sob, hypotension TECHNIQUE: Contiguous axial images are obtained through the chest during arterial injection of intravenous contrast. Images are reconstructed to evaluate the pulmonary arteries. MIP imaging also reviewed. All CT scans at [facility] use at least one of these dose optimization techniques: automated exposure control; mA and/or kV adjustment per patient size (includes targeted exams where dose is matched to clinical indication); or iterative reconstruction. CONTRAST: Omnipaque 350; 100 mL IV. DLP: 399.58 mGy.cm COMPARISON: 03/17/2024 Good opacification of the pulmonary artery. Pulmonary artery size is just slightly larger than the aorta. No emboli are identified. No filling defects. Mild atherosclerotic plaque within the aorta. No aneurysm. Coronary artery calcifications. Marked enlargement of the LEFT heart chambers as seen on the prior examination. There is also tricuspid regurgitation into the hepatic veins. No flattening of the intraventricular septum. Small RIGHT pleural effusion is new since the prior exam. Mild interstitial edema. No pulmonary mass or pneumonia. Mildly prominent lymphoid tissue in the hilar regions. Mildly prominent lymph nodes but no adenopathy. Prior cholecystectomy. Hepatic steatosis. Reidentified is a lobulated hepatic cyst. The adrenal glands are not included in their entirety. No destructive bone lesions. CT/CT angio chest PE protcl [id number] IMPRESSION: 1. No pulmonary embolism. 2. New small RIGHT pleural effusion. 3. Markedly enlarged LEFT heart as on the prior study. 4. Mild interstitial/pulmonary edema. No pneumonia.
[2024-05-27] MEDS: iohexol 350 mg/mL 500 mL Btl (per mL) IV (12:01)
== END 2024-05-27 12:46 | disposition home or self-care (01) ==
PROVIDERS: Emergency Provider Physician Assistant
DX: I25.5 Ischemic cardiomyopathy (principal); R07.9 Chest pain, unspecified; Z79.02 Long term (current) use of antithrombotics/antiplatelets; Z79.82 Long term (current) use of aspirin; F17.210 Nicotine dependence, cigarettes, uncomplicated; E78.5 Hyperlipidemia, unspecified; I10 Essential (primary) hypertension
CPT/HCPCS: 36415; 71045; 71275; 80053; 80306; 83880; 84484; 85025; 93005; 96365; 99285; J0612; J7040

== ENCOUNTER → 2024-06-05 14:46 | Outpatient (BNVA) | payer MEDICAID, SELFPAY ==
[2024-05-15 13:16] VITALS: BP 106/69; BMI 29.4
== END ==
PROVIDERS: Visit Provider Orthopaedic Surgery
DX: M54.2 Cervicalgia (principal)
CPT/HCPCS: 72050; 99214

== ENCOUNTER 2024-06-09 12:19 | Inpatient (IN) | payer MEDICAID, SELFPAY ==
[2024-05-15 13:16] VITALS: BP 106/69; BMI 29.4
[2024-06-09] VITALS (24 sets, daily range): BP systolic 63–112; BP diastolic 45–80; PULSE 61–122; RESP 14–34; TEMP 36.3; O2SAT 91–99; BMI 29.0
--- NOTE | 2024-06-09 12:20 | ECG_ITS ---
[facility] Date: 2024-[facility]-09 Pat Name: Vivek Corral Department: Room: Gender: Male Back Hanger: : 1970 Requested By: Nancy Sandoval Order Number: [id number] Clemencia MD: Pranay Alcocer M.D. Measurements Intervals [place] Rate: 80 P: 37 HI: 182 QRS: -20 QRSD: 98 T: 160 QT: 450 QTc: 522 Interpretive Statements SINUS RHYTHM SEPTAL MYOCARDIAL INFARCTION , OF INDETERMINATE AGE [40+ ms Q WAVE IN V1/V2] MODERATE T-WAVE ABNORMALITY, CONSIDER LATERAL ISCHEMIA [-0.1+ mV T-WAVE IN I/aVL/V5/V6] Compared to ECG 05/27/2024 10:44:23 T-wave abnormality now present Possible ischemia now present Myocardial infarct finding still present Electronically Signed On 06-14-2024 18:17:33 FIRE SUPPORT MAN by Pranay Alcocer M.D. [email or web address]
--- NOTE | 2024-06-09 12:23 | XRR_ITS ---
PROCEDURE INFORMATION: Exam: XR Chest Exam date and time: 06/09/2024 12:25 PM Age: 53 years old Clinical indication: Pain; Angina pectoris; Additional info: Cp TECHNIQUE: Imaging protocol: Radiologic exam of the chest. Views: 1 view. COMPARISON: 1. CR XR chest 1V portable [id number] 05/27/2024 9:[address] angio chest PE protcl [id number] 05/27/2024 11:58 AM FINDINGS: Tubes, catheters and devices: There is a partially imaged line projecting over the left upper chest. This could be a PICC line with the tip in the subclavian vein. Lungs: There is no consolidation. Pleural spaces: The right lateral costophrenic sulcus is blunted. Heart/Mediastinum: There is moderate enlargement of the cardiac silhouette. Bones/joints: Lower cervical fusion is partially imaged. XR/XR chest 1V portable [id number] IMPRESSION: 1. No acute cardiopulmonary abnormality. 2. Small right pleural effusion is similar to 05/27/2024. 3. Question left PICC line with the tip positioned in the subclavian vein versus other structure overlying the patient.
--- NOTE | 2024-06-09 12:38 | W.ED.CHESTPA ---
HPI - Chest Pain General: Chief Complaint: ER Hold Stated Complaint: chest pain Time Seen by Provider: 06/09/24 12:23 Source: patient and EMS Mode of arrival: EMS Limitations: no limitations History of Present Illness: 53-year-old male has history coronary disease ischemic cardiomyopathy with a ejection fraction 20%. He has chronic chest pain was having chest pain today and called EMS EMS did give him a nitro he started having some vomiting after that and hypotension his blood pressure runs low normally. Associated symptoms: Reports nausea and vomiting; Deny abdominal pain, dyspnea or fever(s) Related Data Home Medications ?Medication ?Instructions ?Recorded ?Confirmed allopurinol 300 mg tablet 300 mg PO DAILY 05/22/24 06/09/24 aspirin 81 mg tablet,delayed 81 mg PO DAILY 05/22/24 06/09/24 release atorvastatin 40 mg tablet 40 mg PO QPM 05/22/24 06/09/24 clopidogrel 75 mg tablet 75 mg PO DAILY 05/22/24 06/09/24 losartan 25 mg tablet 12.5 mg PO DAILY 05/22/24 06/09/24 nitroglycerin 0.4 mg sublingual 0.4 mg sublingual PRN PRN Pain 05/22/24 06/09/24 tablet pantoprazole 40 mg tablet,delayed 40 mg PO DAILY 05/22/24 06/09/24 release carvedilol 3.125 mg tablet 3.125 mg PO BID 06/09/24 06/09/24 diazepam 2 mg tablet 2 mg PO BEDTIME PRN Sleep 06/09/24 06/09/24 omega 3 35 mg-dha 25 mg-epa 5 1 tab PO DAILY 06/09/24 06/09/24 mg-fish oil 113.5 mg chewable tablet zolpidem 10 mg tablet 10 mg PO BEDTIME 06/09/24 06/09/24 Previous Rx's ?Medication ?Instructions ?Recorded acetaminophen 325 mg tablet 650 mg (2 x 325 mg) PO Q6H PRN 05/25/24 Mild Pain #100 tabs bumetanide 1 mg tablet 1 mg PO BID #60 tabs 05/25/24 colchicine 0.6 mg tablet 0.6 mg PO DAILY #30 tabs 05/25/24 empagliflozin 10 mg tablet 10 mg PO DAILY #30 tabs 05/25/24 (Jardiance) magnesium oxide 400 mg (241.3 mg 400 mg PO DAILY #30 tabs 05/25/24 magnesium) tablet metoprolol succinate 25 mg 25 mg PO DAILY #30 tabs 05/25/24 tablet,extended release 24 hr potassium chloride 20 mEq 20 meq PO BID #60 tabs 05/25/24 tablet,extended release(part/cryst) (Klor-Con M) Held on 05/27/24. Instructions: Resume on 05/30/24. spironolactone 25 mg tablet 12.5 mg (1/2 x 25 mg) PO DAILY #30 05/25/24 tabs Allergies Allergy/AdvReac Type Severity Reaction Status Date / Time adhesive tape Allergy Intermediate rash Verified 05/23/24 09:18 sulfamethoxazole (From Allergy SWOLLEN Verified 05/23/24 09:18 Sept) TONGUE trimethoprim (From ) Allergy SWOLLEN Verified 05/23/24 09:18 TONGUE Review of Systems Const: Denies: fever(s), chills, body aches or change in appetite ENMT: Denies: throat pain or dental pain Card: Reports: chest pain Resp: Denies: dyspnea GI: Reports: nausea and vomiting; Denies: abdominal pain or diarrhea : Denies: dysuria Musc: Denies: neck pain or back pain Skin/Breast: Denies: rash Neuro: Denies: headache(s) PFSH ED PFSH: Medical History Chest pain ST elevation myocardial infarction (STEMI) Gout attack Degenerative joint disease (DJD) of lumbar spine DJD (degenerative joint disease) of cervical spine Anesthesia complication prolonged sedation after anesthesia 06/26/2022 requiring ICU monitoring but no other intervention, not responsive to narcan; took 5-6 hours to wake up after surgery. Only thing identified is he had not slept for several days prior to surgery. Chronic migraine Depression Prediabetes History of narcotic use with prior pain treatment contract, not using regular narcotic pain control as of 06/26/2022 History of psychiatric care Acute encephalopathy Hypertension GERD (gastroesophageal reflux disease) Hyperlipidemia History of electroencephalogram 11/04/20 This was a normal routine EEG, awake and drowsy and asleep, with no behavioral or electrographic epileptiform activity. This patient was excessively sleepy and was not sleep deprived. Consider a sleep disorder if clinically appropriate. Bipolar disorder Gout [place] tick fever History of Holter monitoring 09/2019 baseline sinus tachycardia with heart rate of 135 bpm, no pauses or bradycardia, diminished heart rate variability 12/2019 baseline sinus rhythm at 94 bpm, symptomatic sinus tachycardia with heart rate 72-126 bpm Psychiatric care Hyperparathyroidism s/p partial parathyroidectomy Bleeding per rectum Had anoscope done by Dr Garcia 08/30/2020 with no fistulae, sinuses, induration, abscess formation or fissures = normal findings Other stimulant dependence, in remission prior methamphetamine use Bilateral renal stones Has seen Dr Bhatti in past, non-obstructive, remote lithotripsy, otherwise monitored for symptoms Cervical disc disease With cervical radiculopathy, spondylosis, spondylosis with myelopathy B12 deficiency 09/2019 Generalized anxiety disorder Cannabis dependence, uncomplicated history, unknown if still using as of 06/26/2022 Carpal tunnel syndrome, left upper limb by nerve conduction study performed 05/2019, has not had surgery as of 06/26/2022 Surgical History Status post cervical discectomy 06/26/2022 Dr Mcghee anterior cervical discectomy C4/C5 with insertion of cage, instrumentation with anterior plate C4-C5, with C4-C7 posterior fusion and instrumentation, use of allograft History of esophagogastroduodenoscopy (EGD) 2015 History of colonoscopy 2016 S/P extracorporeal shock wave therapy History of parathyroidectomy partial, performed by Dr Henderson, never followed-up after surgery History of lumbar laminectomy 09/01/2020 Dr Mcghee L4/5 with bilateral partial facetectomy History of neck surgery 03/24/2020 Dr Mcghee Anterior discectomy with insertion of cage/instrumentation/use of allograft and anterior plate at C5/6 & C6/7 History of cholecystectomy History of knee surgery Left knee arthroscopy 08/[address] Campbell, had MRSA Family History Brother Hypertension Valvular heart disease Grandfather Hypertension History of open heart surgery Father History of open heart surgery Social History Smoking and tobacco/nicotine status: unknown if used tobacco/nicotine Alcohol intake: current Alcohol intake frequency: few times a week Alcohol type: beer Substance/Drug Use: former Household members: other Details: lives with mother who is a former [employer] [facility] [facility] [place], [place] nurse Marital status: Current occupational status: unemployed and disabled Physical Exam Const: COMMON NORMALS: patient oriented x3 HENMT: COMMON NORMALS: normocephalic and atraumatic HEAD & SCALP: normocephalic and atraumatic Eye: COMMON NORMALS: Equal, round and reactive pupils present and EOMs intact bilaterally PUPIL: Yes Equal, round and reactive pupils present Neck/C-Spine: COMMON NORMALS: full ROM and supple Chest: COMMONS NORMALS: normal inspection of the chest and normal palpation of entire chest wall Resp: COMMON NORMALS: normal respiratory effort, No retractions, No use of accessory muscles and clear to auscultation bilaterally AUSCULTATION: clear to auscultation bilaterally Cardio: COMMON NORMALS: regular rate, regular rhythm and No murmurs present (Cardio) RATE: regular rate RHYTHM: regular rhythm GI: COMMON NORMALS: Normal to inspection, nondistended, normoactive bowel sounds present, Soft to palpation, non-tender and no masses PALPATION: Yes Soft to palpation Extremity: COMMON NORMALS: normal to inspection and full ROM Neuro: COMMON NORMALS: patient oriented x3, moves all extremities and no focal motor deficits Psych: COMMON NORMALS: mental status grossly normal, Normal thought process present and cooperative THOUGHT PROCESS: Normal thought process present Skin: COMMON NORMALS: no rashes or lesions noted and no wounds GENERAL SKIN EXAM: no rashes or lesions noted Course Vital Signs: Vital signs: Vital Signs Temperature 97.4 F L 06/09/24 12:20 Pulse Rate 87 06/09/24 16:12 Respiratory Rate 17 06/09/24 16:12 Blood Pressure 97/68 06/09/24 16:12 Pulse Oximetry 95 06/09/24 16:12 Oxygen Delivery Me thod Room Air 06/09/24 16:12 MDM - Chest Pain Medical Decision Making Patient presents here with chest pain he did receive nitro with EMS and is now hypotensive is likely hypotensive from his meds along with the nitro his blood pressures improved currently to 95/72 troponins are at his baseline I did speak to his gate watchman along with hospitalist will admit to further watch his blood pressure and likely needs his meds adjusted Medical Records I reviewed the patient's medical records. Lab Data I reviewed the patient's lab results. 06/09/24 12:31 06/09/24 12:31 Radiology Impressions Chest X-Ray 06/09/24 12:23 IMPRESSION: 1. No acute cardiopulmonary abnormality. 2. Small right pleural effusion is similar to 05/27/2024. 3. Question left PICC line with the tip positioned in the subclavian vein versus other structure overlying the patient. Laboratory Results WBC 8.97 10^3/uL (3.29-11.43) 06/09/24 12:31 RBC 5.31 10^6/uL (3.85-5.65) 06/09/24 12:31 Hgb 13.90 g/dL (11.27-16.99) 06/09/24 12:31 Hct 45.6 % (37-53) 06/09/24 12:31 MCV 85.9 fl (82-101) 06/09/24 12:31 MCH 26.2 pg (27-33) L 06/09/24 12:31 MCHC 30.5 g/dL (30-55) 06/09/24 12:31 RDW 17.2 % (12.1-15.1) H 06/09/24 12:31 Plt Count 336 10^3/cmm (157-399) 06/09/24 12:31 MPV 10.3 fL (7.4-10.4) 06/09/24 12:31 Neut % (Auto) 46.4 % 06/09/24 12:31 Lymph % (Auto) 44.0 % 06/09/24 12:31 Gonzales % (Auto) 7.5 % 06/09/24 12:31 Eos % (Auto) 1.6 % 06/09/24 12:31 Baso % (Auto) 0.2 % 06/09/24 12:31 Neut # (Auto) 4.16 10^3/uL (1.8-7.7) 06/09/24 12:31 Lymph # (Auto) 4.0 10^3/uL (0.8-4.8) 06/09/24 12:31 Gonzales # (Auto) 0.7 10^3/uL (0.2-0.9) 06/09/24 12:31 Eos # (Auto) 0.1 10^3/uL (0.0-0.8) 06/09/24 12:31 Baso # (Auto) 0.0 10^3/uL (0.0-0.1) 06/09/24 12:31 Nucleated RBC % (auto) 0 % 06/09/24 12:31 Nucleated RBCs # 0.0 /100WBC 06/09/24 12:31 Sodium 136 mmol/L (136-145) 06/09/24 12:31 Potassium 3.7 mmol/L (3.5-5.1) 06/09/24 12:31 Chloride 95 mmol/L (98-107) L 06/09/24 12:31 Carbon Dioxide 29 mmol/L (22-29) 06/09/24 12:31 Anion Gap 15.7 (5-19) 06/09/24 12:31 BUN 14 mg/dL (6-20) 06/09/24 12:31 Creatinine 1.3 mg/dL (0.7-1.2) H 06/09/24 12:31 GFR Calculation 57.5 mL/min (90-130) L 06/09/24 12:31 Glucose 120 mg/dL (65-115) H 06/09/24 12:31 Calculated Osmolality 284 mOsm/kg (285-295) L 06/09/24 12:31 Lactic Acid 2.0 mmol/L (0.5-2.2) 06/09/24 12:31 Calcium 10.0 mg/dL (8.5-10.5) 06/09/24 12:31 Total Bilirubin 0.6 mg/dL (0.15-1.2) 06/09/24 12:31 AST 17 U/L (0-40) 06/09/24 12:31 ALT 15 U/L (0-41) 06/09/24 12:31 Alkaline Phosphatase 137 U/L (40-130) H 06/09/24 12:31 Troponin T Baseline 18 ng/L (0-15) H 06/09/24 12:31 Troponin T 120 Minute 13.93 ng/L (0-15) 06/09/24 14:17 Delta Troponin T -4.07 ABS# (0-10) L 06/09/24 14:17 NT-Pro-B Natriuret Pep 2274 pg/mL (0-125) H 06/09/24 12:31 Total Protein 9.0 g/dL (6.6-8.7) H 06/09/24 12:31 Albumin 4.8 g/dL (3.5-5.2) 06/09/24 12:31 Globulin 4.2 g/dL (1.3-4.6) 06/09/24 12:31 Lipase 102 U/L (13-60) H 06/09/24 12:31 All radiology interpretation(s) finalized by discharge EKG Data EKG 1: I personally reviewed and interpreted this EKG as follows: EKG interpretation date: 06/09/24 EKG interpretation time: 12:20 Interpretation: nsr hr [address] elevation qrs 98 qtc 486 Discharge Plan Discharge Patient Disposition: Admitted As Inpatient Clinical Impression: Chest pain, Hypotension Condition: Stable Prescriptions: No Action atorvastatin 40 mg tablet 40 mg PO QPM clopidogrel 75 mg tablet 75 mg PO DAILY aspirin 81 mg tablet,delayed release (DR/EC) 81 mg PO DAILY pantoprazole 40 mg tablet,delayed release (DR/EC) 40 mg PO DAILY losartan 25 mg tablet 12.5 mg PO DAILY nitroglycerin 0.4 mg tablet, sublingual 0.4 mg sublingual PRN PRN (Reason: Pain) allopurinol 300 mg tablet 300 mg PO DAILY spironolactone 25 mg Tablet 12.5 mg PO DAILY Qty: 30 0RF bumetanide 1 mg Tablet 1 mg PO BID Qty: 60 0RF acetaminophen 325 mg Tablet 650 mg PO Q6H PRN (Reason: Mild Pain) Qty: 100 0RF potassium chloride [Klor-Con M20] 20 mEq Tablet,Er Particles/Crystals 20 meq PO BID Qty: 60 0RF magnesium oxide 400 mg (241.3 mg magnesium) Tablet 400 mg PO DAILY Qty: 30 0RF colchicine 0.6 mg tablet 0.6 mg PO DAILY Qty: 30 0RF Jardiance 10 mg tablet 10 mg PO DAILY Qty: 30 0RF metoprolol succinate 25 mg tablet extended release 24 hr 25 mg PO DAILY Qty: 30 0RF carvedilol 3.125 mg tablet 3.125 mg PO BID diazepam 2 mg tablet 2 mg PO BEDTIME PRN (Reason: Sleep) Rx Instructions: not to take with Zolpidem 10mg zolpidem 10 mg tablet 10 mg PO BEDTIME omega 4-kyr-pza-fish oil 35-25-5-113.5 mg Tablet,Chewable 1 tab PO DAILY Print Language: Bangladeshi Coding Level of Care Code ED [place] Artist for Caty Juarez
[2024-06-09 12:50] LABS: Basophils % 0.2 %; Eosinophils # 0.1 10^3/uL (0.0-0.8); Eosinophils % 1.6 %; Hematocrit 45.6 % (37-53); Mean Corpuscular HGB Conc 30.5 g/dL (30-55); Mean Corpuscular Hemoglobin 26.2 pg (27-33); Mean Corpuscular Volume 85.9 fl (82-101); Mean Platelet Volume 10.3 fL (7.4-10.4); Monocytes # 0.7 10^3/uL (0.2-0.9); Monocytes % 7.5 %; Neutrophils # 4.16 10^3/uL (1.8-7.7); Neutrophils % 46.4 %; Nucleated Red Blood Cells % 0 %; Platelet Count 336 10^3/cmm (157-399); Red Blood Count 5.31 10^6/uL (3.85-5.65); Red Cell Distribution Width 17.2 % (12.1-15.1); White Blood Count 8.97 10^3/uL (3.29-11.43)
[2024-06-09 13:07] LABS: Troponin(5th) Baseline 18 ng/L (0-15)
[2024-06-09 13:15] LABS: Alanine Aminotransferase 15 U/L (0-41); Albumin Level 4.8 g/dL (3.5-5.2); Alkaline Phosphatase 137 U/L (40-130); Anion Gap 15.7 (5-19); Aspartate Amino Transferase 17 U/L (0-40); Blood Urea Nitrogen 14 mg/dL (6-20); Carbon Dioxide 29 mmol/L (22-29); Chloride 95 mmol/L (98-107); Creatinine Clr Calc Pharmacy 65.1788; Globulin 4.2 g/dL (1.3-4.6); Glomerular Filtration Rate 57.5 mL/min (90-130); Glucose 120 mg/dL (65-115); Lipase 102 U/L (13-60); NT Pro B Type Natriuretic Pept 2274 pg/mL (0-125); Osmolality Calculated 284 mOsm/kg (285-295); Potassium 3.7 mmol/L (3.5-5.1); Sodium 136 mmol/L (136-145); Total Bilirubin 0.6 mg/dL (0.15-1.2)
--- NOTE | 2024-06-09 14:23 | ECG_ITS ---
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 Measurements Intervals [place] Rate: 85 P: 6 ND: 195 QRS: 71 QRSD: 106 T: 251 QT: 434 QTc: 518 Interpretive Statements SINUS RHYTHM SEPTAL MYOCARDIAL INFARCTION , OF INDETERMINATE AGE [40+ ms Q WAVE IN V1/V2] MODERATE T-WAVE ABNORMALITY, CONSIDER LATERAL ISCHEMIA [-0.1+ mV T-WAVE IN I/aVL/V5/V6] MODERATE T-WAVE ABNORMALITY, CONSIDER INFERIOR ISCHEMIA [-0.1+ mV T-WAVE IN II/aVF] Compared to ECG 06/09/2024 12:20:10 No significant changes Electronically Signed On 06-14-2024 19:48:26 FURNACE RELINER by Pranay Alcocer M.D. [email or web address]
[2024-06-09 14:41] LABS: Troponin 5 2HR 13.93 ng/L (0-15)
[2024-06-09 14:42] LABS: Troponin 5 2HR Delta -4.07 ABS# (0-10)
--- NOTE | 2024-06-09 16:10 | PC.NURSE ---
Assumed care of patient @ 1550- Rounding with patient, he reports that he has been feeling weak and tired all day. Pt has ems NS1L bag fluids completed.
--- NOTE | 2024-06-09 16:51 | PM.HP ---
Providers/Chief Complaint Chief Complaint: chest pain History of Present Illness Vivek Corral is a 53 year old male with past medical history of ischemic cardiomyopathy with EF down to 25%, LifeVest in place who was last in hospital from 05/22 to 05/25 who underwent cardiac angiogram on previous visit with concerns for ST elevation [place] and was found to have global hypokinesis with a EF of 20%, LAD with luminal irregularities without significant stenosis, patent previously placed LAD stent, patent LCx and RCA with LVEDP of 39. On previous admission his antihypertensives were adjusted. Patient presents to the ER today because of concerns for dizziness associated with nausea, presyncope with concerns for syncope while he was sitting and watching TV at home. He presented to the ER via EMS. As per the ER physician EMS was previously called for chest pain. Nitropaste was placed by the EMS. In the ER he was found to be hypotensive with blood pressure of 60 systolic for which he required 1 L of IV fluid bolus. Patient himself denies any abdominal pain complains of occasional chest heaviness which he states is normal for him. Denies any difficulty in breathing more than usual. Currently is on room air in reverse Trendelenburg position with blood pressure of 96 systolic with a heart rate of 87 bpm. Denies any further changes in medications since last discharge. has been taking his medications regularly. does not take Coreg and only takes metoprolol currently. Took his medications today morning. Review of Systems General: Reports: 10 or more systems reviewed and unremarkable except in HPI and below Const: Denies: fever(s), chills, body aches, change in appetite, change in weight, malaise, night sweats, diaphoresis, change in sleep pattern, daytime sleepiness or snoring Eyes: Denies: change in vision, blurry vision, photophobia, eye discomfort or eye discharge ENMT: Denies: throat pain, enlarged tonsils, hoarseness, mouth pain, oral sores, dry mouth, tinnitus, nasal congestion or post nasal drip Card: Denies: chest pain, palpitations, irregular heart rhythm, edema, swelling of feet/ankles, lightheadedness, syncope, pre-syncope, dyspnea on exertion, orthopnea, leg pain with exertion or acrocyanosis Resp: Denies: dyspnea, productive cough, non-productive cough, wheezing, stridor, pain on inspiration, change in phlegm color, hemoptysis or chest congestion GI: Denies: abdominal pain, nausea, vomiting, hematemesis, coffee ground emesis, dysphagia, heartburn, diarrhea, constipation, bloating, GI cramping, change in bowel habits, pain on defecation, hematochezia or melena : Denies: flank pain, difficulty urinating, dysuria, urinary frequency, urinary urgency, urinary hesitancy, urinary dribbling, difficulty starting urination, change in urine stream, nocturia or hematuria Musc: Denies: neck pain, back pain, extremity pain, joint pain, joint swelling, joint redness, joint stiffness or limited range of motion Neuro: Denies: headache(s), numbness in extremities, weakness in extremities, sensory changes, lack of coordination, difficulty walking, frequent falls, dizziness, vertigo, confusion, Slurred speech present, difficulty communicating thoughts or seizure-like activity Psych: Denies: anxiety, depression, mood swings, panic attacks, hopelessness or irritability Endo: Denies: polyuria, polydipsia, tired all the time, cold intolerance, excessive sweating, flushing or heat intolerance Gomez/Lymph: Denies: easy bruising or easy bleeding All/Imm: Denies: tongue swelling, facial swelling or acute wheezing Medications/Allergies Home Medications ?Medication ?Instructions ?Recorded ?Confirmed ?Last Taken ?Type allopurinol 300 mg tablet 300 mg PO DAILY 05/22/24 06/09/24 06/09/24 History aspirin 81 mg tablet,delayed 81 mg PO DAILY 05/22/24 06/09/24 06/09/24 History release atorvastatin 40 mg tablet 40 mg PO QPM 05/22/24 06/09/24 06/08/24 History clopidogrel 75 mg tablet 75 mg PO DAILY 05/22/24 06/09/24 06/09/24 History losartan 25 mg tablet 12.5 mg PO DAILY 05/22/24 06/09/24 Unknown History nitroglycerin 0.4 mg sublingual 0.4 mg sublingual PRN PRN Pain 05/22/24 06/09/24 Unknown History tablet pantoprazole 40 mg tablet,delayed 40 mg PO DAILY 05/22/24 06/09/24 06/09/24 History release acetaminophen 325 mg tablet 650 mg (2 x 325 mg) PO Q6H PRN 05/25/24 06/09/24 Unknown Rx Mild Pain #100 tabs bumetanide 1 mg tablet 1 mg PO BID #60 tabs 05/25/24 06/09/24 06/09/24 Rx colchicine 0.6 mg tablet 0.6 mg PO DAILY #30 tabs 05/25/24 06/09/24 06/09/24 Rx empagliflozin 10 mg tablet 10 mg PO DAILY #30 tabs 05/25/24 06/09/24 06/09/24 Rx (Jardiance) magnesium oxide 400 mg (241.3 mg 400 mg PO DAILY #30 tabs 05/25/24 06/09/24 06/08/24 Rx magnesium) tablet metoprolol succinate 25 mg 25 mg PO DAILY #30 tabs 05/25/24 06/09/24 06/09/24 Rx tablet,extended release 24 hr potassium chloride 20 mEq 20 meq PO BID #60 tabs 05/25/24 06/09/24 06/09/24 Rx tablet,extended release(part/cryst) (Haile Sinha) Held on 05/27/24. Instructions: Resume on 05/30/24. spironolactone 25 mg tablet 12.5 mg (1/2 x 25 mg) PO DAILY #30 05/25/24 06/09/24 06/09/24 Rx tabs carvedilol 3.125 mg tablet 3.125 mg PO BID 06/09/24 06/09/24 06/09/24 History diazepam 2 mg tablet 2 mg PO BEDTIME PRN Sleep 06/09/24 06/09/24 06/08/24 History omega 3 35 mg-dha 25 mg-epa 5 1 tab PO DAILY 06/09/24 06/09/24 06/09/24 History mg-fish oil 113.5 mg chewable tablet zolpidem 10 mg tablet 10 mg PO BEDTIME 06/09/24 06/09/24 06/08/24 History Allergies Allergy/AdvReac Type Severity Reaction Status Date / Time adhesive tape Allergy Intermediate rash Verified 05/23/24 09:18 sulfamethoxazole (From Allergy SWOLLEN Verified 05/23/24 09:18 Septra) TONGUE trimethoprim (From ) Allergy SWOLLEN Verified 05/23/24 09:18 TONGUE PFSH Acute PFSH: Medical History (Updated 06/09/24 @ 18:25 by Kerwin Zee MD) Ischemic cardiomyopathy Chest pain ST elevation myocardial infarction (STEMI) Gout attack Degenerative joint disease (DJD) of lumbar spine DJD (degenerative joint disease) of cervical spine Anesthesia complication prolonged sedation after anesthesia 06/26/2022 requiring ICU monitoring but no other intervention, not responsive to narcan; took 5-6 hours to wake up after surgery. Only thing identified is he had not slept for several days prior to surgery. Chronic migraine Depression Prediabetes History of narcotic use with prior pain treatment contract, not using regular narcotic pain control as of 06/26/2022 History of psychiatric care Acute encephalopathy Hypertension GERD (gastroesophageal reflux disease) Hyperlipidemia History of electroencephalogram 11/04/20 This was a normal routine EEG, awake and drowsy and asleep, with no behavioral or electrographic epileptiform activity. This patient was excessively sleepy and was not sleep deprived. Consider a sleep disorder if clinically appropriate. Bipolar disorder Gout [place] tick fever History of Holter monitoring 09/2019 baseline sinus tachycardia with heart rate of 135 bpm, no pauses or bradycardia, diminished heart rate variability 12/2019 baseline sinus rhythm at 94 bpm, symptomatic sinus tachycardia with heart rate 72-126 bpm Psychiatric care Hyperparathyroidism s/p partial parathyroidectomy Bleeding per rectum Had anoscope done by Dr Garcia 08/30/2020 with no fistulae, sinuses, induration, abscess formation or fissures = normal findings Other stimulant dependence, in remission prior methamphetamine use Bilateral renal stones Has seen Dr Bhatti in past, non-obstructive, remote lithotripsy, otherwise monitored for symptoms Cervical disc disease With cervical radiculopathy, spondylosis, spondylosis with myelopathy B12 deficiency 09/2019 Generalized anxiety disorder Cannabis dependence, uncomplicated history, unknown if still using as of 06/26/2022 Carpal tunnel syndrome, left upper limb by nerve conduction study performed 05/2019, has not had surgery as of 06/26/2022 Surgical History Status post cervical discectomy 06/26/2022 Dr Mcghee anterior cervical discectomy C4/C5 with insertion of cage, instrumentation with anterior plate C4-C5, with C4-C7 posterior fusion and instrumentation, use of allograft History of esophagogastroduodenoscopy (EGD) 2016 History of colonoscopy 2016 S/P extracorporeal shock wave therapy History of parathyroidectomy partial, performed by Dr Henderson, never followed-up after surgery History of lumbar laminectomy 09/01/2020 Dr Mcghee L4/5 with bilateral partial facetectomy History of neck surgery 03/24/2020 Dr Mcghee Anterior discectomy with insertion of cage/instrumentation/use of allograft and anterior plate at C5/6 & C6/7 History of cholecystectomy History of knee surgery Left knee arthroscopy 08/[address] Campbell, had MRSA Family History Brother Hypertension Valvular heart disease Grandfather Hypertension History of open heart surgery Father History of open heart surgery Social History Smoking and tobacco/nicotine status: unknown if used tobacco/nicotine Alcohol intake: current Alcohol intake frequency: few times a week Alcohol type: beer Substance/Drug Use: former Household members: other Details: lives with mother who is a former [employer] nurse Marital status: Current occupational status: unemployed and disabled Vitals/I&O/Wt Last Vital Signs Temp 97.4 F L 06/09/24 12:20 Pulse 87 06/09/24 16:12 Resp 17 06/09/24 16:12 BP 97/68 06/09/24 16:12 Pulse Ox 95 06/09/24 16:12 O2 Del Method Room Air 06/09/24 16:12 Weight last 48 hrs Weight 81.647 kg Physical Exam Narrative: General: No acute distress, AO x3, chronically sick appearing, anxious complaining of mild shivering HEENT: PERRLA, pupils bilaterally equal and reactive Chest: Normal vesicular breath sounds, no added sounds, equal good air entry bilaterally CVS: S1-S2 regular, pansystolic murmur present at apex grade 2 anterior axillary line, pansystolic murmur in fourth intercostal space 2/6, no tachycardia, no gallops, no rubs Abdomen: Soft, nontender, no organomegaly, bowel sounds present Neuro: No focal deficits, no facial deformity, AO x3, power 5/5 in all limbs Data 06/09/24 12:31 06/09/24 12:31 A&P Assessment and plan (1) Chest pain: Unknown etiology. Could be in setting of GERD. Patient did have an angiogram within last 1 month which was reported normal with patent LAD stent, and LAD without stenosis, patent RCA and LCx. Patient does not seem to be in congestive heart failure currently as laying comfortably in bed with head of the bed not elevated. Baseline troponin 18 and trending down in 2 hours. Cycled for 6 hours. Last echocardiogram back in February 2024 which showed an EF of 15%, mild to moderate TR with PASP of 43 mmHg, mild to moderate MR. Will plan for limited echocardiogram. Continue with home dose of aspirin, statin, Plavix. Holding off on beta-alli because of hypotension. (2) Hypotension: Mild concerns for cardiogenic shock due to Nitropaste received by EMS. Goal blood pressure less than 140/90 mmHg with mean over 65. Continue to monitor. Hold off on antihypertensive for now. Hold off on home dose of metoprolol succinate and losartan for now. Depending on the blood pressures will try to add low-dose metoprolol and losartan back. Check lactic acid, respiratory viral panel, urine drug screen. (3) Ischemic cardiomyopathy: (4) Acute on chronic systolic congestive heart failure: Fluid restriction to less than 1500 cc. Watch for fluid overload. Holding off on diuretics for now. Currently not in congestive heart failure. Echocardiogram as above. (5) Depression: (6) Generalized anxiety disorder: Plan CODE STATUS: Discussed in detail with the patient. Mother will the DPOA. Patient is okay with chest compression but did not want mechanical ventilation. Limited resuscitation okay for chest compressions. Cardiac diet Heparin 5000 Q12 hourly for DVT prophylaxis Protonix OPD prophylaxis PDMP PDMP Reviewed: Not Reviewed Attestations Medical Necessity Statement*: Admission for more than 2 midnights for management of hypertension with concerns for cardiogenic shock, polypharmacy in a patient with history of ischemic cardiomyopathy with a EF of 20%, chest pain Critical Care Time: The high probability of a clinically significant, sudden or life threatening deterioration of the patient's [cardiac] system(s) required my full and direct attention, intervention and personal management. The critical care time is as shown. This time is in addition to time spent performing any reported procedures but includes the following: [x] Data and vital sign review and interpretation [x] Patient assessment, examination and intervention [x] Documentation [x] Medication orders and management Critical Care Time (min): 60 Coding Level of Care Code Critical Care >/= 30 minutes Critical care time (in minutes): 60 The high probability of a clinically significant, sudden or life threatening deterioration, as referenced in this documentation, required my full and direct attention, intervention and personal management. The critical care time shown is in addition to time spent performing any reported separately billable procedures and includes the following: [x] Data and vital sign review and interpretation [x] Patient assessment, examination and intervention [x] Medication orders and management [x] Patient/Family updates as able [x] Care Coordination and Documentation. Other Coding Information This patient has a high probability of clinically significant, sudden or life threatening deterioration of the patient's (neurological/pulmonary/cardiac/renal/ID/endocrine) systems required my full, direct attention, the highest level of physician preparedness for urgent intervention and personal management. I managed/supervised life or organ supporting interventions that required frequent physician assessment. I devoted my full attention in the ICU to the direct care of this patient for the period of time indicated above. Time I spent with family or surrogate(s) is included only if the patient was incapable of providing necessary information or participating in decision making. This time includes the following services provided: Telemetry review Hemodynamic interpretation, assessment and management Review and interpretation of CXR Review and interpretation of lab values Review and interpretation of microbiologic data and culture results Review of medications and administration Review and interpretation of Nutrition requirements and management Discussion of management with other consultants and services Clinical update to family members Diagnoses Chest pain R07.9 Hypotension I95.9 Ischemic cardiomyopathy I25.5 Acute on chronic systolic congestive heart failure I50.23 Depression F32.A Generalized anxiety disorder F41.1
--- NOTE | 2024-06-09 17:06 | CTR_ITS ---
PROCEDURE INFORMATION: Exam: CT Head Without Contrast Exam date and time: 06/09/2024 5:57 PM Age: 53 years old Clinical indication: Dizziness TECHNIQUE: Imaging protocol: Computed tomography of the head without contrast. Radiation optimization: All CT scans at this facility use at least one of these dose optimization techniques: automated exposure control; mA and/or kV adjustment per patient size (includes targeted exams where dose is matched to clinical indication); or iterative reconstruction. COMPARISON: CT head wo con* [id number] 05/03/2024 7:08 PM RADIATION DOSE METRICS: Total DLP (mGy-cm): 1089.78 FINDINGS: Brain: No significant mass effect or cerebral volume loss. There is minimal hypoattenuation in the periventricular white matter suggesting chronic microvascular disease. There is no acute intracranial hemorrhage. Cerebral ventricles: There is no significant ventricular dilation. The basal cisterns are unremarkable. Paranasal sinuses: The paranasal sinuses are clear. Mastoid air cells: The mastoid air cells are clear. Bones: The calvarium is intact. Soft tissues: The visible extracranial soft tissues are unremarkable. CT/CT head wo con* [id number] IMPRESSION: No acute intracranial abnormality.
[2024-06-09 17:30] LABS: Procalcitonin 0.05 ng/mL (0-0.5)
--- NOTE | 2024-06-09 18:23 | ECG_ITS ---
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 Measurements Intervals [place] Rate: 94 P: 9 MO: 156 QRS: 68 QRSD: 98 T: -85 QT: 410 QTc: 513 Interpretive Statements SINUS RHYTHM SEPTAL MYOCARDIAL INFARCTION , OF INDETERMINATE AGE [40+ ms Q WAVE IN V1/V2] MODERATE T-WAVE ABNORMALITY, CONSIDER LATERAL ISCHEMIA [-0.1+ mV T-WAVE IN I/aVL/V5/V6] MODERATE T-WAVE ABNORMALITY, CONSIDER INFERIOR ISCHEMIA [-0.1+ mV T-WAVE IN II/aVF] Compared to ECG 06/09/2024 16:31:56 No significant changes Electronically Signed On 06-14-2024 19:47:36 [employer]ANCE TRUING INSPECTOR by Pranay Alcocer M.D. [email or web address]
--- NOTE | 2024-06-09 18:32 | USCV_ITS ---
Vivek Corral Age: 53 Gender: M : 1970 Exam Date: 06/09/2024 21:56 Ordering Phys: Kerwin Zee MD Technologist: DAWOOD [place]am [place] [facility] [place] Indication: hx ischemic CM, dizziness, nausea, syncope. BP: 112 / 68 HR: 88 Rhythm: Sinus Technical Quality: Adequate MEASUREMENTS (Male / Female) Normal Values 2D ECHO LV Diastolic Diameter PLAX 4.3 cm 4.2 - 5.9 / 3.9 - 5.3 cm IVS Diastolic Thickness 1.1 cm 0.6 - 1.0 / 0.6 - 0.9 cm IVS Systolic Thickness 1.5 cm LVPW Diastolic Thickness 1.1 cm 0.6 - 1.0 / 0.6 - 0.9 cm LVPW Systolic Thickness 1.1 cm LVOT Diameter 2.3 cm LV Ejection Fraction 2D Teich 22.1 % LV Ejection Fraction MOD 4C 16.7 % LV Ejection Fraction MOD 2C 26.4 % LV Ejection Fraction 2C AL 26.1 % LA Diameter 4.8 cm Aorta at Sinotubular Diameter 3.1 cm IVC Diameter 1.3 cm M-MODE LA Ao Ratio MM 1.2 AV Cusp Separation MM 1.9 cm DOPPLER AV Peak Velocity 98.0 cm/s LVOT Peak Velocity 64.0 cm/s AV Area Cont Eq vti 3.3 cm squared AV Area Cont Eq pk 2.6 cm squared MV Peak Velocity 87.0 cm/s MV Area PHT 3.1 cm squared Mitral E to A Ratio 1.3 TR Peak Velocity 320.0 cm/s TR Peak Gradient 41.0 mmHg TV Peak E Velocity 46.0 cm/s PV Peak Velocity 57.0 cm/s FINDINGS Left Ventricle LV systolic function is severely reduced with EF of 25-30%. Severe global hypokinesis. Right Ventricle Grossly normal in size Right Atrium Normal in size Left Atrium Dilated. In proximity of anterior mitral valve leaflet, there is echogenic structure likely artifact. Mitral Valve Structurally normal mitral valve. Mild mitral regurgitation. Aortic Valve Structurally normal aortic valve. No significant stenosis or regurgitation. Tricuspid Valve Insufficient TR jet to calculate RVSP Pulmonic Valve Not well visualized Pericardium Normal Aorta Normal in size IVC Appears to be normal CONCLUSIONS LV systolic function is severely reduced with EF of 25-30%. Left atrial dilation. Mild mitral regurgitation. Compared to prior echo from 05/24/2024, no significant changes are seen. Pranay Alcocer MD (Electronically Signed) Final Date: 10 June 2024 11:18 S
[2024-06-09 18:54] LABS: Lactic Sepsis W/Reflex 1.5 mmol/L (0.5-2.2)
[2024-06-09 19:07] LABS: Add Urine Microscopic? NO
[2024-06-09 19:09] LABS: Bilirubin Urine Negative (Negative); Blood Urine Negative (Negative); Glucose Urine UA 2+ (Normal); Ketones Urine Negative (Negative); Leukocyte Esterase Urine Negative (Negative); Nitrate Urine Negative (Negative); Protein Urine Negative (Negative); Specific Gravity, Urine 1.011 (1.005-1.030); Urine Appearance Clear (CLEAR); Urine Color Yellow (Yellow); Urobilinogen Urine 0.2 mg/dL (Negative); pH Urine 5.5 (5-7)
[2024-06-09 19:17] LABS: Amphetamines Screen Urine Negative (Negative); Barbiturates Screen Urine Negative (Negative); Benzodiazepines Screen Urine Positive (Negative); Cocaine Screen Urine Negative (Negative); Opiate Screen Urine Negative (Negative); PCP Screen Urine Negative (Negative); THC Screen Urine Negative (Negative)
[2024-06-09 19:32] LABS: Charge for UA Resulting for Rev
[2024-06-09 20:08] LABS: Troponin 5 6HR 13.31 ng/L (0-15)
[2024-06-09 20:11] LABS: Troponin 5 6HR Delta -4.69 ng/L (0-12)
[2024-06-09] MEDS: morphine 4 mg/mL SDV 1 mL 2 MG IVP (20:31)
[2024-06-09] MEDS: heparin 5,000 unit/mL INJ 1 mL 5000 UNIT SUBCUT (20:43)
[2024-06-09] MEDS: docusate sodium 100 mg Capsule PO (20:44)
[2024-06-09] MEDS: zolpidem 5 mg Tablet 10 MG PO (20:45)
[2024-06-09] MEDS: atorvastatin 40 mg Tablet PO (20:45)
[2024-06-09 21:14] LABS: Adenovirus Not Detected (NOT DETECT); Chlamydia Pneumoniae Not Detected (NOT DETECT); Coronavirus 229E,HKU1,NL63,OC4 Not Detected (NOT DETECT); Human Metapneumovirus Not Detected (NOT DETECT); Human Rhinovirus/Enterovirus Not Detected (NOT DETECT); Influenza A Not Detected (NOT DETECT); Influenza A H1 Not Detected (NOT DETECT); Influenza A H1-2009 Not Detected (NOT DETECT); Influenza A H3 Not Detected (NOT DETECT); Influenza B Not Detected (NOT DETECT); Mycoplasma Pneumoniae Not Detected (NOT DETECT); Parainfluenza Virus Type 1 Not Detected (NOT DETECT); Parainfluenza Virus Type 2 Not Detected (NOT DETECT); Parainfluenza Virus Type 3 Not Detected (NOT DETECT); Parainfluenza Virus Type 4 Not Detected (NOT DETECT); Respiratory Syncytial Virus A Not Detected (NOT DETECT); Respiratory Syncytial Virus B Not Detected (NOT DETECT); SARS-COV-2 Not Detected (NOT DETECT)
[2024-06-10] VITALS (22 sets, daily range): BP systolic 91–105; BP diastolic 58–79; PULSE 83–97; RESP 14–25; TEMP 36.4–36.7; O2SAT 89–99
[2024-06-10 00:33] LABS: Iron 93 ug/dL (59-158); Percent Saturation 24.5 % (20-50); Total Iron Binding Capacity 379 mcg/dl; Unsaturated Iron Binding 286 ug/dL (112-347); Vitamin B12 238 pg/mL (232-1245)
[2024-06-10 04:07] LABS: Basophils % 0.1 %; Eosinophils # 0.1 10^3/uL (0.0-0.8); Eosinophils % 1.9 %; Hematocrit 36.4 % (37-53); Lymphocytes # 2.3 10^3/uL (0.8-4.8); Lymphocytes % 33.5 %; Mean Corpuscular HGB Conc 31.3 g/dL (30-55); Mean Corpuscular Hemoglobin 26.9 pg (27-33); Mean Corpuscular Volume 85.8 fl (82-101); Mean Platelet Volume 9.9 fL (7.4-10.4); Monocytes # 0.7 10^3/uL (0.2-0.9); Monocytes % 9.6 %; Neutrophils # 3.81 10^3/uL (1.8-7.7); Neutrophils % 54.6 %; Nucleated Red Blood Cells % 0 %; Platelet Count 286 10^3/cmm (157-399); Red Blood Count 4.24 10^6/uL (3.85-5.65); Red Cell Distribution Width 17.2 % (12.1-15.1); White Blood Count 6.98 10^3/uL (3.29-11.43)
[2024-06-10 04:33] LABS: Alanine Aminotransferase 10 U/L (0-41); Albumin Level 3.6 g/dL (3.5-5.2); Alkaline Phosphatase 104 U/L (40-130); Aspartate Amino Transferase 14 U/L (0-40); Blood Urea Nitrogen 16 mg/dL (6-20); Calcium 9.9 mg/dL (8.5-10.5); Carbon Dioxide 28 mmol/L (22-29); Chloride 102 mmol/L (98-107); Creatinine Clr Calc Pharmacy 70.6104; Globulin 3.2 g/dL (1.3-4.6); Glomerular Filtration Rate 63.1 mL/min (90-130); Glucose 143 mg/dL (65-115); Magnesium 2.2 mg/dL (1.7-2.3); Osmolality Calculated 292 mOsm/kg (285-295); Phosphorus 4.1 mg/dL (2.5-4.5); Procalcitonin 0.03 ng/mL (0-0.5); Sodium 139 mmol/L (136-145); Total Bilirubin 0.7 mg/dL (0.15-1.2); Total Protein 6.8 g/dL (6.6-8.7)
[2024-06-10] MEDS: morphine 4 mg/mL SDV 1 mL 2 MG IVP ×3 (05:49→20:53)
[2024-06-10] MEDS: clopidogrel 75 mg Tablet PO (08:08)
[2024-06-10] MEDS: colchicine 0.6 mg Tablet PO (08:08)
[2024-06-10] MEDS: aspirin 81 mg EC Tablet PO (08:08)
[2024-06-10] MEDS: allopurinol 300 mg Tablet PO (08:08)
[2024-06-10] MEDS: pantoprazole DR 40 mg Tablet PO (08:08)
[2024-06-10] MEDS: docusate sodium 100 mg Capsule PO ×2 (08:08→16:57)
[2024-06-10] MEDS: heparin 5,000 unit/mL INJ 1 mL 5000 UNIT SUBCUT ×2 (08:08→21:17)
[2024-06-10] MEDS: ranolazine (12HR) 500 mg Tablet 1000 MG PO ×2 (09:22→16:57)
[2024-06-10] MEDS: metoprolol tartrate 25 mg Tablet 12.5 MG PO ×2 (09:22→21:17)
[2024-06-10] MEDS: ondansetron 2 mg/ML SDV 2 mL 4 MG IVP ×2 (10:29→20:53)
--- NOTE | 2024-06-10 13:30 | P.CONIM_ITS ---
<Statement entered by Pranay Alcocer M.D - 06/12/24 08:25> Patient was evaluated and cared for in conjunction with an advanced practice practitioner.? I personally examined the patient and reviewed the chart and all pertinent data including imaging, telemetry, and laboratory results.? I discussed the patient in detail with the advanced practice practitioner.? Please see? their note for complete consult note, testing results and agreed upon plan of care for the patient. GENERAL: Patient is alert, awake and oriented x3. HEART: Regular S1 and S2 LUNGS: Clear to auscultate bilaterally. CENTRAL NERVOUS SYSTEM: Grossly nonfocal. EXTREMITIES: Lower extremities with out edema bilaterally. Providers/Reason For Consult 2 Consulting Physician/Specialty*: Dr Alcocer, cardiology Reason for Consult*: chest pain, presyncope, hypotension, ischemic cardiomyopathy Requesting Physician: Dr Zee Attending Physician: Kerwin Zee MD History of Present Illness History of Present Illness Vivek Corral is a 53 year old male with past medical history of ischemic cardiomyopathy, LVEF previously 20%, currently wearing LifeVest, STEMI on 05/22/24 with subsequent coronary angiogram revealing no significant stenosis. He presented to the emergency room yesterday with dizziness, hypotension. Troponin series: 18->13->13. He received a fluid bolus, metoprolol, losartan held. Limited echocardiogram yesterday 25-30%. Today he is feeling much better, has not had any chest pain, no significant shortness of breath. He appears euvolemic. Review of Systems 2 Const: Denies: fever(s), chills, change in weight, fatigue or diaphoresis Eyes: Denies: change in vision ENMT: Denies: epistaxis Card: Denies: chest pain, palpitations, irregular heart rhythm, edema, syncope, pre-syncope, dyspnea on exertion, orthopnea or leg pain with exertion Resp: Denies: dyspnea, productive cough or wheezing GI: Denies: nausea, vomiting, hematemesis, hematochezia or melena : Denies: hematuria Musc: Denies: extremity swelling Gomez/Lymph: Denies: easy bruising or easy bleeding Medications/Allergies Home Medications ?Medication ?Instructions ?Recorded ?Confirmed ?Last Taken ?Type allopurinol 300 mg tablet 300 mg PO DAILY 05/22/2407/0106/09/24 History aspirin 81 mg tablet,delayed 81 mg PO DAILY 05/22/24 0 06/09/24 06/09/24 History release atorvastatin 40 mg tablet 40 mg PO QPM 05/22/2406/08/24 History clopidogrel 75 mg tablet 75 mg PO DAILY 05/22/24 03/0 07/0106/09/24 History losartan 25 mg tablet 12.5 mg PO DAILY 05/22/24 Unknown History nitroglycerin 0.4 mg sublingual 0.4 mg sublingual PRN PRN Pain 05/22/24 06/09/24 Unknown History tablet pantoprazole 40 mg tablet,delayed 40 mg PO DAILY 05/2206/09/24 06/09/24 History release acetaminophen 325 mg tablet 650 mg (2 x 325 mg) PO Q6H PRN 05/25/24 06/09/24 Unknown Rx Mild Pain #100 tabs bumetanide 1 mg tablet 1 mg PO BID #60 tabs 5 06/09/24 06/09/24 Rx colchicine 0.6 mg tablet 0.6 mg PO DAILY #30 tabs 06/09/24 06/09/24 Rx empagliflozin 10 mg tablet 10 mg PO DAILY #30 tabs 06/09/24 06/09/24 Rx (Jardiance) magnesium oxide 400 mg (241.3 mg 400 mg PO DAILY #30 t abs 05/25/24 06/09/24 06/08/24 Rx magnesium) tablet metoprolol succinate 25 mg 25 mg PO DAILY #30 tabs 06/09/24 06/09/24 Rx tablet,extended release 24 hr potassium chloride 20 mEq 20 meq PO BID #60 tabs 05/2506/09/24 06/09/24 Rx tablet,extended release(part/cryst) (Klor-Con M) Held on 05/27/24. Instructions: Resume on 05/30/24. spironolactone 25 mg tablet 12.5 mg (1/2 x 25 mg) PO D AILY #30 05/25/24 06/09/24 06/09/24 Rx tabs carvedilol 3.125 mg tablet 3.125 mg PO BID 06/09/2406/09/25 History diazepam 2 mg tablet 2 mg PO BEDTIME PRN Sleep 06/09/24 06/08/24 History omega 3 35 mg-dha 25 mg-epa 5 1 tab PO DAILY 06/09/24 06/09/24 06/09/24 History mg-fish oil 113.5 mg chewable tablet zolpidem 10 mg tablet 10 mg PO BEDTIME 06/09/2406/08/24 History Allergies Allergy/AdvReac Type Severity Reaction Status Date / Time adhesive tape Allergy Intermediate rash Verified 05/23/24 09:18 sulfamethoxazole (From Allergy SWOLLEN Verified 05/23/24 09:18 Sept) TONGUE trimethoprim (From ) Allergy SWOLLEN Verified 05/23/24 09:18 TONGUE Current Medications Generic Name Dose Route Start Last Admin Trade Name Freq PRN Reason Stop Dose Admin Allopurinol 300 mg 06/10/24 09:00 06/10/24 08:08 Allopurinol 300 Mg Tablet PO 300 mg DAILY JUNIOR Administration Aspirin 81 mg 06/10/24 09:00 06/10/24 08:08 Aspirin 81 Mg Ec Tablet PO 81 mg DAILY JUNIOR Administration Atorvastatin Calcium 40 mg 06/09/24 20:23 06/09/24 20:45 Atorvastatin 40 Mg Tablet PO 40 mg QPM JUNIOR Administration Clopidogrel Bisulfate 75 mg 06/10/24 09:00 06/10/24 08:08 Clopidogrel 75 Mg Tablet PO 75 mg DAILY JUNIOR Administration Colchicine 0.6 mg 06/10/24 09:00 06/10/24 08:08 Colchicine 0.6 Mg Tablet PO 0.6 mg DAILY JUNIOR Administration Docusate Sodium 100 mg 06/09/24 20:23 06/10/24 08:08 Docusate Sodium 100 Mg Capsule PO 100 mg BID JUNIOR Administration Heparin Sodium (Porcine) 5,000 unit 06/09/24 20:23 06/10/24 08:08 Heparin 5,000 Unit/Ml Inj 1 Ml SUBCUT 5,000 unit Q12H JUNIOR Administration Metoprolol Tartrate 12.5 mg 06/10/24 09:00 06/10/24 09:22 Metoprolol Tartrate 25 Mg Tablet PO 12.5 mg BID@0900,2100 JUNIOR Administration Morphine Sulfate 2 mg 06/09/24 20:23 06/10/24 10:32 Morphine 4 Mg/Ml Sdv 1 Ml IVP 2 mg Q4H PRN Administration SEVERE PAIN Ondansetron HCl 4 mg 06/09/24 20:23 06/10/24 10:29 Ondansetron 2 Mg/Ml Sdv 2 Ml IVP 4 mg Q6H PRN Administration vomiting, or N/V if npo Pantoprazole Sodium 40 mg 06/10/24 09:00 06/10/24 08:[address] 40 Mg Tablet PO 40 mg DAILY JUNIOR Administration Ranolazine 1,000 mg 06/10/24 09:00 06/10/24 09:22 Ranolazine (12hr) 500 Mg Tablet PO 1,000 mg BID JUNIOR Administration Zolpidem Tartrate 10 mg 06/09/24 21:00 06/09/24 20:45 Zolpidem 5 Mg Tablet PO 10 mg BEDTIME JUNIOR Administration PFSH Acute 2 PFSH: Medical History (Updated 06/10/24 @ 17:58 by ALEXANDRE Love) ST elevation myocardial infarction (STEMI) Ischemic cardiomyopathy Chest pain Gout attack Degenerative joint disease (DJD) of lumbar spine DJD (degenerative joint disease) of cervical spine Anesthesia complication prolonged sedation after anesthesia 06/26/2022 requiring ICU monitoring but no other intervention, not responsive to narcan; took 5-6 hours to wake up after surgery. Only thing identified is he had not slept for several days prior to surgery. Chronic migraine Depression Prediabetes History of narcotic use with prior pain treatment contract, not using regular narcotic pain control as of 06/26/2022 History of psychiatric care Acute encephalopathy Hypertension GERD (gastroesophageal reflux disease) Hyperlipidemia History of electroencephalogram 11/04/20 This was a normal routine EEG, awake and drowsy and asleep, with no behavioral or electrographic epileptiform activity. This patient was excessively sleepy and was not sleep deprived. Consider a sleep disorder if clinically appropriate. Bipolar disorder Gout [place] tick fever History of Holter monitoring 09/2019 baseline sinus tachycardia with heart rate of 135 bpm, no pauses or bradycardia, diminished heart rate variability 12/2019 baseline sinus rhythm at 94 bpm, symptomatic sinus tachycardia with heart rate 72-126 bpm Psychiatric care Hyperparathyroidism s/p partial parathyroidectomy Bleeding per rectum Had anoscope done by Dr Garcia 08/30/2020 with no fistulae, sinuses, induration, abscess formation or fissures = normal findings Other stimulant dependence, in remission prior methamphetamine use Bilateral renal stones Has seen Dr Bhatti in past, non-obstructive, remote lithotripsy, otherwise monitored for symptoms Cervical disc disease With cervical radiculopathy, spondylosis, spondylosis with myelopathy B12 deficiency 09/2019 Generalized anxiety disorder Cannabis dependence, uncomplicated history, unknown if still using as of 06/26/2022 Carpal tunnel syndrome, left upper limb by nerve conduction study performed 05/2019, has not had surgery as of 06/26/2022 Surgical History Status post cervical discectomy 06/26/2022 Dr Mcghee anterior cervical discectomy C4/C5 with insertion of cage, instrumentation with anterior plate C4-C5, with C4-C7 posterior fusion and instrumentation, use of allograft History of esophagogastroduodenoscopy (EGD) 2015 History of colonoscopy 2016 S/P extracorporeal shock wave therapy History of parathyroidectomy partial, performed by Dr Henderson, never followed-up after surgery History of lumbar laminectomy 09/01/2020 Dr Mcghee L4/5 with bilateral partial facetectomy History of neck surgery 03/24/2020 Dr Mcghee Anterior discectomy with insertion of cage/instrumentation/use of allograft and anterior plate at C5/6 & C6/7 History of cholecystectomy History of knee surgery Left knee arthroscopy 08/[address] Campbell, had MRSA Family History Brother Hypertension Valvular heart disease Grandfather Hypertension History of open heart surgery Father History of open heart surgery Social History Smoking and tobacco/nicotine status: unknown if used tobacco/nicotine Alcohol intake: current Alcohol intake frequency: few times a week Alcohol type: beer Substance/Drug Use: former Household members: other Details: lives with mother who is a former [employer] nurse Marital status: Current occupational status: unemployed and disabled Vitals/I&O/Wt Last Vital Signs Temp 98.1 F 06/10/24 08:24 Pulse 84 06/10/24 12:12 Resp 14 06/10/24 12:12 BP 91/62 06/10/24 12:12 Pulse Ox 96 06/10/24 12:12 O2 Del Method Room Air 06/10/24 12:12 O2 Flow Rate 2 06/10/24 08:24 06/09/24 06/10/24 06/10/24 22:59 06:59 14:59 Intake Total 480 / 960 480 / 960 Output Total 500 / 500 250 / 250 Balance 480 / 460 -20 / 460 -250 / -250 Weight last 48 hrs Weight 180 lb Weight 180 lb Weight 180 lb Weight 180 lb Physical Exam 2 Const: COMMON NORMALS: no acute distress and patient oriented x3 GENERAL APPEARANCE: cooperative and comfortable ORIENTATION/CONSCIOUSNESS: Yes awake, Yes oriented to person, Yes oriented to place and Yes oriented to time Chest: COMMONS NORMALS: normal inspection of the chest and normal palpation of entire chest wall CHEST: Yes Symmetrical chest wall rise Resp: COMMON NORMALS: normal respiratory effort, No retractions, No use of accessory muscles and clear to auscultation bilaterally EFFORT & INSPECTION: Yes symmetric chest movement AUSCULTATION: clear to auscultation bilaterally Cardio: COMMON NORMALS: regular rate, regular rhythm, S1 normal heart sound present, S2 normal heart sound present, No gallops present (Cardio), No clicks present (Cardio), No murmurs present (Cardio) and No rub (Cardio) RATE: r egular rate RHYTHM: regular rhythm HEART SOUNDS: S1 normal heart sound present and S2 normal heart sound present PERIPHERAL PULSES: radial pulses present Extremity: COMMON NORMALS: no pedal edema Neuro: COMMON NORMALS: patient oriented x3 and moves all extremities S ENSORIUM/ORIENTATION: Yes oriented to person, Yes oriented to place and Yes oriented to time Data 06/10/24 03:18 06/10/24 03:18 A&P Assessment and plan (1) Ischemic cardiomyopathy: (2) Hypertension: Qualifiers: Hypertension type: primary hypertension Qualified Code(s): I10 - Essential (primary) hypertension (3) ST elevation myocardial infarction (STEMI): (4) Acute on chronic systolic congestive heart failure: Plan He appears well compensated, blood pressure remains on the soft side, 90s to 100 systolic. Metoprolol tartrate 12.5 mg twice a day was resumed this morning in which he has tolerated well. Continue medical management, aspirin, atorvastatin, Plavix. PDMP PDMP Reviewed: Not Reviewed Coding Level of Care Code Acute Code for [facility] Fwd Diagnoses Ischemic cardiomyopathy I25.5 Primary hypertension I10 Hypertension type: primary hypertension ST elevation myocardial infarction (STEMI) I21.3 Acute on chronic systolic congestive heart failure I50.23
--- NOTE | 2024-06-10 15:06 | P.PN_ITS ---
Subjective 2 Subjective: No acute vents overnight. Today morning seen laying comfortably in bed in ICU. Denies any nausea counting, headache. Has remained stable on room air. Denies any chest pain. Vitals/I&O/Wt Last Vital Signs Temp 98.1 F 06/10/24 08:24 Pulse 84 06/10/24 12:12 Resp 14 06/10/24 12:12 BP 91/62 06/10/24 12:12 Pulse Ox 96 06/10/24 12:12 O2 Del Method Room Air 06/10/24 12:12 O2 Flow Rate 2 06/10/24 08:24 06/10/24 06/10/24 06/10/24 06:59 14:59 22:59 Intake Total 480 / 960 Output Total 500 / 500 250 / 250 Balance -20 / 460 -250 / -250 Weight last 48 hrs Weight 81.647 kg Weight 81.647 kg Weight 81.647 kg Weight 81.647 kg Physical Exam 2 Narrative: General: No acute distress, AO x3, chronically sick appearing, anxious complaining of mild shivering HEENT: PERRLA, pupils bilaterally equal and reactive Chest: Normal vesicular breath sounds, no added sounds, equal good air entry bilaterally CVS: S1-S2 regular, pansystolic murmur present at apex grade 2 anterior axillary line, pansystolic murmur in fourth intercostal space 2/6, no tachycardia, no gallops, no rubs Abdomen: Soft, nontender, no organomegaly, bowel sounds present Neuro: No focal deficits, no facial deformity, AO x3, power 5/5 in all limbs Data 06/10/24 03:18 06/10/24 03:18 A&P Assessment and plan (1) Chest pain: Unknown etiology. Could be in setting of GERD. Patient did have an angiogram within last 1 month which was reported normal with patent LAD stent, and LAD without stenosis, patent RCA and LCx. Patient does not seem to be in congestive heart failure currently as laying comfortably in bed with head of the bed not elevated. Baseline troponin 18 and trending down in 2 hours. Cycled for 6 hours. Last echocardiogram back in February 2024 which showed an EF of 15%, mild to moderate TR with PASP of 43 mmHg, mild to moderate MR. Will plan for limited echocardiogram. Continue with home dose of aspirin, statin, Plavix. Holding off on beta-alli because of hypotension. (2) Hypotension: Mild concerns for cardiogenic shock due to Nitropaste received by EMS. Goal blood pressure less than 140/90 mmHg with mean over 65. Continue to monitor. Hold off on antihypertensive for now. Hold off on home dose of metoprolol succinate and losartan for now. Depending on the blood pressures will try to add low-dose metoprolol and losartan back. Check lactic acid, respiratory viral panel, urine drug screen. (3) Ischemic cardiomyopathy: (4) Acute on chronic systolic congestive heart failure: Fluid restriction to less than 1500 cc. Watch for fluid overload. Holding off on diuretics for now. Currently not in congestive heart failure. Echocardiogram as above. (5) Depression: (6) Generalized anxiety disorder: Plan CODE STATUS: Discussed in detail with the patient. Mother will the DPOA. Patient is okay with chest compression but did not want mechanical ventilation. Limited resuscitation okay for chest compressions. Cardiac diet Heparin 5000 Q12 hourly for DVT prophylaxis Protonix OPD prophylaxis Plan for the day: Patient blood pressure has remained stable. Remains chest pain-free. Goal blood pressure less than 140/90 mmHg with mean over 65. Restart metoprolol at 12.5 mg twice daily. Appreciate recent cardiac angiogram. Start patient on Ranexa 1000 mg twice daily. Monitor blood pressures. [facility]. No concerns for congestive heart failure for now. Continue with fluid restriction. Hold off on Lasix. PDMP PDMP Reviewed: Not Reviewed Attestations 2 Medical Necessity Statement*: Requires further hospitalization for management of cardiogenic shock in a patient with history of congestive heart failure with EF of 15% while antihypertensive and antianginals were adjusted Diagnoses Chest pain R07.9 Hypotension I95.9 Ischemic cardiomyopathy I25.5 Acute on chronic systolic congestive heart failure I50.23 Depression F32.A Generalized anxiety disorder F41.1
--- NOTE | 2024-06-10 15:14 | PC.NURSE ---
Report was given to Lisa in [facility]. Patient was transferred with all belongings. Patient was transferred successfully to [facility]. Patient was stable.
[2024-06-10] MEDS: atorvastatin 40 mg Tablet PO (16:57)
[2024-06-10] MEDS: zolpidem 5 mg Tablet 10 MG PO (21:17)
[2024-06-11] MEDS: magnesium hydroxide 30 mL UDC PO (03:13)
[2024-06-11 04:00] VITALS: BP 93/68; PULSE 99; RESP 20; TEMP 36.6; O2SAT 97
[2024-06-11 05:35] LABS: Basophils % 0.3 %; Eosinophils # 0.2 10^3/uL (0.0-0.8); Eosinophils % 2.1 %; Hematocrit 39.9 % (37-53); Mean Corpuscular HGB Conc 31.1 g/dL (30-55); Mean Corpuscular Hemoglobin 26.6 pg (27-33); Mean Corpuscular Volume 85.4 fl (82-101); Mean Platelet Volume 10.2 fL (7.4-10.4); Monocytes # 0.6 10^3/uL (0.2-0.9); Monocytes % 7.7 %; Neutrophils # 3.96 10^3/uL (1.8-7.7); Neutrophils % 50.8 %; Nucleated Red Blood Cells % 0 %; Platelet Count 307 10^3/cmm (157-399); Red Blood Count 4.67 10^6/uL (3.85-5.65); Red Cell Distribution Width 17.6 % (12.1-15.1); White Blood Count 7.79 10^3/uL (3.29-11.43)
[2024-06-11 05:44] VITALS: BMI 29.0
[2024-06-11 06:07] LABS: Alanine Aminotransferase 19 U/L (0-41); Albumin Level 4.1 g/dL (3.5-5.2); Alkaline Phosphatase 113 U/L (40-130); Anion Gap 15.1 (5-19); Aspartate Amino Transferase 26 U/L (0-40); Blood Urea Nitrogen 20 mg/dL (6-20); Calcium 10.4 mg/dL (8.5-10.5); Carbon Dioxide 29 mmol/L (22-29); Chloride 100 mmol/L (98-107); Creatinine Clr Calc Pharmacy 65.1788; Globulin 3.5 g/dL (1.3-4.6); Glomerular Filtration Rate 57.5 mL/min (90-130); Glucose 116 mg/dL (65-115); Magnesium 2.3 mg/dL (1.7-2.3); Osmolality Calculated 294 mOsm/kg (285-295); Potassium 4.1 mmol/L (3.5-5.1); Sodium 140 mmol/L (136-145); Total Bilirubin 0.6 mg/dL (0.15-1.2); Total Protein 7.6 g/dL (6.6-8.7)
[2024-06-11 07:44] VITALS: BP 90/65; PULSE 98; RESP 25; TEMP 36.8; O2SAT 97
--- NOTE | 2024-06-11 08:30 | P.PN_ITS ---
<Statement entered by Pranay Alcocer M.D - 06/13/24 21:33> Patient was cared for in conjunction with an advanced practice practitioner. I personally reviewed the chart and all pertinent data including imaging, telemetry, and laboratory results. I discussed the patient in detail with the advanced practice practitioner. Please see their note for complete progress note, results and agreed upon plan of care for the patient. Subjective 2 Subjective: He has done well overnight, had some transient shortness of breath when he got up to the bathroom overnight but resolved quickly. No chest pain. He is tolerating Ranexa well. Vitals/I&O/Wt Last Vital Signs Temp 97.8 F 06/11/24 11:37 Pulse 94 06/11/24 11:37 Resp 17 06/11/24 11:37 BP 90/65 06/11/24 07:44 Pulse Ox 96 06/11/24 11:37 O2 Del Method Nasal Cannula 06/11/24 11:37 O2 Flow Rate 2 06/10/24 08:24 Weight last 48 hrs Weight 180 lb Weight 180 lb Weight 180 lb Weight 180 lb Physical Exam 2 Const: COMMON NORMALS: no acute distress and patient oriented x3 GENERAL APPEARANCE: cooperative and comfortable ORIENTATION/CONSCIOUSNESS: Yes awake, Yes oriented to person, Yes oriented to place and Yes oriented to time Chest: COMMONS NORMALS: normal inspection of the chest and normal palpation of entire chest wall CHEST: Yes Symmetrical chest wall rise Resp: COMMON NORMALS: normal respiratory effort, No retractions, No use of accessory muscles and clear to auscultation bilaterally EFFORT & INSPECTION: Yes symmetric chest movement AUSCULTATION: clear to auscultation bilaterally Cardio: COMMON NORMALS: regular rate, regular rhythm, S1 normal heart sound present, S2 normal heart sound present, No gallops present (Cardio), No clicks present (Cardio), No murmurs present (Cardio) and No rub (Cardio) RATE: r egular rate RHYTHM: regular rhythm HEART SOUNDS: S1 normal heart sound present and S2 normal heart sound present PERIPHERAL PULSES: radial pulses present Extremity: COMMON NORMALS: no pedal edema Neuro: COMMON NORMALS: patient oriented x3 and moves all extremities S ENSORIUM/ORIENTATION: Yes oriented to person, Yes oriented to place and Yes oriented to time Data 06/11/24 05:13 06/11/24 05:13 A&P Assessment and plan (1) CAD (coronary artery disease): (2) Acute on chronic systolic congestive heart failure: (3) Hypotension: Plan Hypotension has improved, he has not had any chest pain and appears euvolemic. He is okay to discharge home when okay with hospitalist service. Continue medical management with aspirin, Plavix, atorvastatin, metoprolol, Ranexa. He was previously on Bumex which we can continue with Jardiance. If no hypotension as an outpatient we can consider resuming losartan and spironolactone, depending on renal function- creatinine 1.3 this morning. PDMP PDMP Reviewed: Not Reviewed Attestations 2 Medical Necessity Statement*: plan for discharge today Coding Level of Care Code Acute Code for [facility] Diagnoses CAD (coronary artery disease) I25.10 Acute on chronic systolic congestive heart failure I50.23 Hypotension I95.9
--- NOTE | 2024-06-11 08:34 | PM.DCS ---
Discharge Providers Date of Admission: 06/09/24 18:25 Date of Discharge: June 11, 2024 Attending Provider at Admission: Kerwin Zee MD Attending Provider at Discharge: Kerwin Zee MD Consults: Cardiology: Dr. Alcocer Diagnoses at Discharge Discharge Diagnosis (1) Ischemic cardiomyopathy: Status: Acute (2) Hypertension: Status: Chronic Qualifiers: Hypertension type: primary hypertension Qualified Code(s): I10 - Essential (primary) hypertension (3) ST elevation myocardial infarction (STEMI): Status: Acute (4) Acute on chronic systolic congestive heart failure: Status: Acute Reason for Visit Reason for Visit: chest pain Hospital Course Hospital Course Vivek Corral is a 53 year old male with past medical history of ischemic cardiomyopathy with EF down to 25%, LifeVest in place who was last in hospital from 05/22 to 05/25 who underwent cardiac angiogram on previous visit with concerns for ST elevation FL and was found to have global hypokinesis with a EF of 20%, LAD with luminal irregularities without significant stenosis, patent previously placed LAD stent, patent LCx and RCA with LVEDP of 39. On previous admission his antihypertensives were adjusted. Patient presents to the ER today because of concerns for dizziness associated with nausea, presyncope with concerns for syncope while he was sitting and watching TV at home. He presented to the ER via EMS. As per the ER physician EMS was previously called for chest pain. Nitropaste was placed by the EMS. In the ER he was found to be hypotensive with blood pressure of 60 systolic for which he required 1 L of IV fluid bolus. Patient himself denies any abdominal pain complains of occasional chest heaviness which he states is normal for him. Denies any difficulty in breathing more than usual. Currently is on room air in reverse Trendelenburg position with blood pressure of 96 systolic with a heart rate of 87 bpm. Denies any further changes in medications since last discharge. has been taking his medications regularly. does not take Coreg and only takes metoprolol currently. Took his medications today morning. Patient was admitted to the hospital further evaluation and management of cardiogenic shock in setting of Nitropaste which was placed per him en route for chest pain. He was given 1 L of IV fluid bolus in the ER after which his blood pressures improved. He was admitted to the hospital and his antihypertensives were further adjusted. Cardiology was consulted. He was started on Ranexa 1000 mg twice daily for chest pain. He is been discharged hemodynamically stable condition on Ranexa 1 g twice daily, metoprolol tartrate 12.5 mg twice daily with advised to check his blood pressure daily at home maintain a blood pressure diary's. Patient was counseled detail about lifestyle modification with congestive heart failure. He has been discharged on Bumex 1 mg daily with as needed dosing for a body weight increased by 3 pounds. Physical Exam Narrative: General: No acute distress, AO x3, chronically sick appearing, anxious complaining of mild shivering HEENT: PERRLA, pupils bilaterally equal and reactive Chest: Normal vesicular breath sounds, no added sounds, equal good air entry bilaterally CVS: S1-S2 regular, pansystolic murmur present at apex grade 2 anterior axillary line, pansystolic murmur in fourth intercostal space 2/6, no tachycardia, no gallops, no rubs Abdomen: Soft, nontender, no organomegaly, bowel sounds present Neuro: No focal deficits, no facial deformity, AO x3, power 5/5 in all limbs Discharge Data Studies Completed and Pending Completed Studies During Hospitalization Category Date Time Status CT head wo con* [id number] Stat Cat Scan 06/09/24 17:06 Completed XR chest 1V portable [id number] Stat Exams 06/09/24 12:23 Completed CV. echo limited [id number] Routine Ultrasound 06/09/24 18:32 Completed Pending at discharge Category Date Time Status Complete Blood Count w/Auto AM LABS Lab 06/12/24 04:00 Ordered Comprehensive Metabolic Panel AM LABS Lab 06/12/24 04:00 Ordered Magnesium AM LABS Lab 06/12/24 04:00 Ordered Phosphorus AM LABS Lab 06/12/24 04:00 Ordered Radiology Impressions Chest X-Ray 06/09/24 12:23 IMPRESSION: 1. No acute cardiopulmonary abnormality. 2. Small right pleural effusion is similar to 05/27/2024. 3. Question left PICC line with the tip positioned in the subclavian vein versus other structure overlying the patient. Head CT 06/09/24 17:06 IMPRESSION: No acute intracranial abnormality. Echocardiogram: CONCLUSIONS LV systolic function is severely reduced with EF of 25-30%. Left atrial dilation. Mild mitral regurgitation. Compared to prior echo from 05/24/2024, no significant changes are seen. Pranay Alcocer MD (Electronically Signed) Final Date: 10 June 2024 Laboratory Results WBC 7.79 10^3/uL (3.29-11.43) 06/11/24 05:13 RBC 4.67 10^6/uL (3.85-5.65) 06/11/24 05:13 Hgb 12.40 g/dL (11.27-16.99) 06/11/24 05:13 Hct 39.9 % (37-53) 06/11/24 05:13 MCV 85.4 fl (82-101) 06/11/24 05:13 MCH 26.6 pg (27-33) L 06/11/24 05:13 MCHC 31.1 g/dL (30-55) 06/11/24 05:13 RDW 17.6 % (12.1-15.1) H 06/11/24 05:13 Plt Count 307 10^3/cmm (157-399) 06/11/24 05:13 MPV 10.2 fL (7.4-10.4) 06/11/24 05:13 Neut % (Auto) 50.8 % 06/11/24 05:13 Lymph % (Auto) 39.0 % 06/11/24 05:13 [place] % (Auto) 7.7 % 06/11/24 05:13 Eos % (Auto) 2.1 % 06/11/24 05:13 Baso % (Auto) 0.3 % 06/11/24 05:13 Neut # (Auto) 3.96 10^3/uL (1.8-7.7) 06/11/24 05:13 Lymph # (Auto) 3.0 10^3/uL (0.8-4.8) 06/11/24 05:13 [place] # (Auto) 0.6 10^3/uL (0.2-0.9) 06/11/24 05:13 Eos # (Auto) 0.2 10^3/uL (0.0-0.8) 06/11/24 05:13 Baso # (Auto) 0.0 10^3/uL (0.0-0.1) 06/11/24 05:13 Nucleated RBC % (auto) 0 % 06/11/24 05:13 Nucleated RBCs # 0.0 /100WBC 06/11/24 05:13 Sodium 140 mmol/L (136-145) 06/11/24 05:13 Potassium 4.1 mmol/L (3.5-5.1) 06/11/24 05:13 Chloride 100 mmol/L (98-107) 06/11/24 05:13 Carbon Dioxide 29 mmol/L (22-29) 06/11/24 05:13 Anion Gap 15.1 (5-19) 06/11/24 05:13 BUN 20 mg/dL (6-20) 06/11/24 05:13 Creatinine 1.3 mg/dL (0.7-1.2) H 06/11/24 05:13 GFR Calculation 57.5 mL/min (90-130) L 06/11/24 05:13 Glucose 116 mg/dL (65-115) H 06/11/24 05:13 Calculated Osmolality 294 mOsm/kg (285-295) 06/11/24 05:13 Lactic Acid 1.5 mmol/L (0.5-2.2) 06/09/24 18:21 Calcium 10.4 mg/dL (8.5-10.5) 06/11/24 05:13 Phosphorus 4.0 mg/dL (2.5-4.5) 06/11/24 05:13 Magnesium 2.3 mg/dL (1.7-2.3) 06/11/24 05:13 Iron 93 ug/dL (59-158) 06/09/24 14:17 TIBC 379 mcg/dl 06/09/24 14:17 % Saturation 24.5 % (20-50) 06/09/24 14:17 Unsat Iron Binding 286 ug/dL (112-347) 06/09/24 14:17 Total Bilirubin 0.6 mg/dL (0.15-1.2) 06/11/24 05:13 AST 26 U/L (0-40) 06/11/24 05:13 ALT 19 U/L (0-41) 06/11/24 05:13 Alkaline Phosphatase 113 U/L (40-130) 06/11/24 05:13 Troponin T Baseline 18 ng/L (0-15) H 06/09/24 12:31 Troponin T 120 Minute 13.93 ng/L (0-15) 06/09/24 14:17 Delta Troponin T -4.07 ABS# (0-10) L 06/09/24 14:17 Troponin T Hi Sens 6Hr 13.31 ng/L (0-15) 06/09/24 19:31 Troponin T Hi Sens 6Hr Delta -4.69 ng/L (0-12) L 06/09/24 19:31 NT-Pro-B Natriuret Pep 2274 pg/mL (0-125) H 06/09/24 12:31 Total Protein 7.6 g/dL (6.6-8.7) 06/11/24 05:13 Albumin 4.1 g/dL (3.5-5.2) 06/11/24 05:13 Globulin 3.5 g/dL (1.3-4.6) 06/11/24 05:13 Lipase 102 U/L (13-60) H 06/09/24 12:31 Vitamin B12 238 pg/mL (232-1245) 06/09/24 14:17 Folate 8.0 ng/mL (4.5-32.2) 06/10/24 03:18 Procalcitonin 0.03 ng/mL (0-0.5) 06/10/24 03:18 Urine Color Yellow (Yellow) 06/09/24 19:03 Urine Appearance Clear (CLEAR) 06/09/24 19:03 Urine pH 5.5 (5-7) 06/09/24 19:03 Ur Specific Dixon 1.011 (1.005-1.030) 06/09/24 19:03 Urine Protein Negative (Negative) 06/09/24 19:03 Urine Glucose (UA) 2+ (Normal) H 06/09/24 19:03 Urine Ketones Negative (Negative) 06/09/24 19:03 Urine Blood Negative (Negative) 06/09/24 19:03 Urine Nitrate Negative (Negative) 06/09/24 19:03 Urine Bilirubin Negative (Negative) 06/09/24 19:03 Urine Urobilinogen 0.2 mg/dL (Negative) 06/09/24 19:03 Ur Leukocyte Esterase Negative (Negative) 06/09/24 19:03 Amorphous Sediment Not Reportable 06/09/24 19:03 Urine Opiates Screen Negative ng/mL (Negative) 06/09/24 19:03 Ur Barbiturates Screen Negative ng/mL (Negative) 06/09/24 19:03 Ur Phencyclidine Scrn Negative ng/mL (Negative) 06/09/24 19:03 Ur Amphetamines Screen Negative ng/mL (Negative) 06/09/24 19:03 U Benzodiazepines Scrn Positive ng/mL (Negative) H 06/09/24 19:03 Urine Cocaine Screen Negative ng/mL (Negative) 06/09/24 19:03 U Marijuana (THC) Screen Negative ng/mL (Negative) 06/09/24 19:03 Adenovirus (PCR) Not detected (NOT DETECT) 06/09/24 19:03 C. pneumoniae DNA (PCR) Not detected (NOT DETECT) 06/09/24 19:03 Coronavirus 229E (PCR) Not detected (NOT DETECT) 06/09/24 19:03 Human Metapneumovir PCR Not detected (NOT DETECT) 06/09/24 19:03 Influenza A (H1) PCR Not detected (NOT DETECT) 06/09/24 19:03 Influ A (H1/09) PCR Not detected (NOT DETECT) 06/09/24 19:03 Influenza A (H3) PCR Not detected (NOT DETECT) 06/09/24 19:03 Influenza Type A (PCR) Not detected (NOT DETECT) 06/09/24 19:03 Influenza Type B (PCR) Not detected (NOT DETECT) 06/09/24 19:03 M. pneumoniae (PCR) Not detected (NOT DETECT) 06/09/24 19:03 Parainfluenza 1 (PCR) Not detected (NOT DETECT) 06/09/24 19:03 Parainfluenza 2 (PCR) Not detected (NOT DETECT) 06/09/24 19:03 Parainfluenza 3 (PCR) Not detected (NOT DETECT) 06/09/24 19:03 Parainfluenza 4 (PCR) Not detected (NOT DETECT) 06/09/24 19:03 RSV Type A (PCR) Not detected (NOT DETECT) 06/09/24 19:03 RSV Type B (PCR) Not detected (NOT DETECT) 06/09/24 19:03 Entero/Rhino (PCR) Not detected (NOT DETECT) 06/09/24 19:03 SARS-CoV-2 (PCR) Not detected (NOT DETECT) 06/09/24 19:03 Vitals Last Vital Signs Temp 98.3 F 06/11/24 07:44 Pulse 98 06/11/24 07:44 Resp 25 H 06/11/24 07:44 BP 90/65 06/11/24 07:44 Pulse Ox 97 06/11/24 07:44 O2 Del Method Nasal Cannula 06/11/24 07:44 O2 Flow Rate 2 06/10/24 08:24 Discharge Plan Discharge Patient Disposition: Home Condition: Stable Prescriptions: Continued atorvastatin 40 mg tablet 40 mg PO QPM clopidogrel 75 mg tablet 75 mg PO DAILY aspirin 81 mg tablet,delayed release (DR/EC) 81 mg PO DAILY pantoprazole 40 mg tablet,delayed release (DR/EC) 40 mg PO DAILY nitroglycerin 0.4 mg tablet, sublingual 0.4 mg sublingual PRN PRN (Reason: Pain) allopurinol 300 mg tablet 300 mg PO DAILY acetaminophen 325 mg Tablet 650 mg PO Q6H PRN (Reason: Mild Pain) Qty: 100 0RF potassium chloride [Klor-Con M20] 20 mEq Tablet,Er Particles/Crystals 20 meq PO BID Qty: 60 0RF magnesium oxide 400 mg (241.3 mg magnesium) Tablet 400 mg PO DAILY Qty: 30 0RF colchicine 0.6 mg tablet 0.6 mg PO DAILY Qty: 30 0RF Jardiance 10 mg tablet 10 mg PO DAILY Qty: 30 0RF diazepam 2 mg tablet 2 mg PO BEDTIME PRN (Reason: Sleep) Rx Instructions: not to take with Zolpidem 10mg zolpidem 10 mg tablet 10 mg PO BEDTIME omega 4-qoq-xyl-fish oil 35-25-5-113.5 mg Tablet,Chewable 1 tab PO DAILY Changed bumetanide 1 mg Tablet 1 mg PO DAILY Qty: 60 0RF metoprolol succinate 25 mg tablet extended release 24 hr 12.5 mg PO DAILY Qty: 30 0RF Held losartan 25 mg tablet 12.5 mg PO DAILY Hold Instructions: Resume on 06/25/24. Discontinued spironolactone 25 mg Tablet 12.5 mg PO DAILY Qty: 30 0RF carvedilol 3.125 mg tablet 3.125 mg PO BID Discharge Orders: Discharge Order (Routine); Ordered 06/11/24 Ordered By: Kerwin Zee Referrals: Soto Escamilla MD [Physician] - 03/14/25 9:30 am Darlyn Paeg FNP [Nurse Practitioner] - 06/24/24 2:15 pm Discharge Diet: Cardiac Discharge Activity: Resume usual activity and Increase activity as tolerated Patient Instructions: Chest Pain (GEN), Hypotension (GEN), Opioid Safety Activity Restrictions/Additional Instructions: Restrict fluid intake to less than 1500 cc, salt intake to less than 2 g daily. Advised to check his weight daily at home. Is advised that weight today would be the dry weight and if body weight increases by around 5 pounds, patient is to take an extra dose of Bumex daily till body weight comes down to weight today. If not able to come down to dry body weight in 1 week, then is to call cardiology office for further recommendations. Patient was counseled in detail to take medications regularly as prescribed. Discharge Attestations Time Spent in Discharge Care*: greater than 30 min Specific Discharge Activities: educating patient, discussing with pcp/other providers, discussing with home health care case manager/social workers/dc planners, documenting/other paperwork and evaluating patient/reviewing data Status at Discharge: Cognitive status at discharge: cognitively intact, Behavioral status at discharge: cooperative, Quality Metrics Clinical Quality Measures [ No reported AMI, CVA or VTE this stay] Coding Level of Care Code 05682 Total time (in minutes) for Discharge: 60 Diagnoses Ischemic cardiomyopathy I25.5 Primary hypertension I10 Hypertension type: primary hypertension ST elevation myocardial infarction (STEMI) I21.3 Acute on chronic systolic congestive heart failure I50.23
[2024-06-11] MEDS: ranolazine (12HR) 500 mg Tablet 1000 MG PO (09:23)
[2024-06-11] MEDS: heparin 5,000 unit/mL INJ 1 mL 5000 UNIT SUBCUT (09:23)
[2024-06-11] MEDS: metoprolol tartrate 25 mg Tablet 12.5 MG PO (09:23)
[2024-06-11] MEDS: allopurinol 300 mg Tablet PO (09:23)
[2024-06-11] MEDS: clopidogrel 75 mg Tablet PO (09:24)
[2024-06-11] MEDS: aspirin 81 mg EC Tablet PO (09:24)
[2024-06-11] MEDS: colchicine 0.6 mg Tablet PO (09:24)
[2024-06-11] MEDS: pantoprazole DR 40 mg Tablet PO (09:24)
[2024-06-11] MEDS: docusate sodium 100 mg Capsule PO (09:24)
[2024-06-11 09:46] VITALS: O2SAT 93; O2SAT 96
[2024-06-11 11:37] VITALS: PULSE 94; RESP 17; TEMP 36.6; O2SAT 96
== END 2024-06-11 13:55 | disposition home or self-care (01) | DRG 280 ==
LOC: ER 17:55 → ICU 18:26 → MEDSURG 06-10 15:02
PROVIDERS: Admitting Provider Student in an Organized Health Care Education/Training Program; Emergency Provider Emergency Medicine; Visit Provider Student in an Organized Health Care Education/Training Program
DX: I95.9 Hypotension, unspecified (principal); R57.0 Cardiogenic shock; I21.3 ST elevation (STEMI) myocardial infarction of unspecified site; I50.22 Chronic systolic (congestive) heart failure; I25.5 Ischemic cardiomyopathy; I25.10 Atherosclerotic heart disease of native coronary artery without angina pectoris; M10.9 Gout, unspecified; G43.909 Migraine, unspecified, not intractable, without status migrainosus; K21.9 Gastro-esophageal reflux disease without esophagitis; E78.5 Hyperlipidemia, unspecified; F31.9 Bipolar disorder, unspecified; I11.0 Hypertensive heart disease with heart failure; F41.1 Generalized anxiety disorder; Z98.890 Other specified postprocedural states; Z90.89 Acquired absence of other organs; Z98.1 Arthrodesis status; Z90.49 Acquired absence of other specified parts of digestive tract; Z95.5 Presence of coronary angioplasty implant and graft; Z79.899 Other long term (current) drug therapy; Z79.82 Long term (current) use of aspirin; Z79.85 Long-term (current) use of injectable non-insulin antidiabetic drugs; Z88.2 Allergy status to sulfonamides; Z91.09 Other allergy status, other than to drugs and biological substances; Z79.02 Long term (current) use of antithrombotics/antiplatelets; Z11.52 Encounter for screening for COVID-19
CPT/HCPCS: 36415; 70450; 71045; 80053; 80306; 81003; 82607; 82746; 83540; 83550; 83605; 83690; 83735; 83880; 84100; 84145; 84484; 85025; 87486; 87581; 87633; 93005; 93308; 94664; 94760; 96372; 96374; 96376; 99285; J1644; J2270; J2405; J9999

== ENCOUNTER 2024-06-24 11:18 | Outpatient (CLI) | payer MEDICAID, SELFPAY ==
[2024-05-15 13:16] VITALS: BP 106/69; BMI 29.4
--- NOTE | 2024-06-24 11:45 | MR_ITS ---
WS: [id number] MRI CERVICAL SPINE NONCONTRAST TECHNIQUE: Sagittal T1, T2 and STIR imaging. Axial T2, gradient, and fiesta imaging. CLINICAL INFORMATION: Neck pain COMPARISON: MRI 04/18/2022 FINDINGS: Straightening of the normal cervical lordosis. Prior postoperative changes C4-C7 ACDF. C2-C3: Mild LEFT bony foraminal narrowing. Mild facet arthropathy. C3-C4: Progressed central disc protrusion. Moderate central canal stenosis with slight indentation of the cervical cord. This is progressed compared to previous. Severe bilateral bony foraminal narrowing. Moderate facet arthropathy. C4-C5: Postoperative ACDF. Spinal canal is patent. Mild RIGHT bony foraminal narrowing. C5-C6: Postoperative ACDF. Mild bilateral bony foraminal narrowing. Spinal canal is patent. C6-C7: Mild bilateral bony foraminal narrowing. Spinal canal is patent. ACDF. C7-T1: ACDF. Spinal canal and foramen are patent. Visualized brain stem structures: Normal. Prevertebral soft tissues: Normal. MR/MR cervical spin wo con* [id number] IMPRESSION: 1. Central disc protrusion C3-C4 are new from previous with moderate central c anal stenosis. Severe bilateral bony foraminal narrowing at this level with mod erate facet arthropathy. 2. Otherwise stable ACDF C4-C7
[2024-06-24 20:16] LABS: Anion Gap 17.9 (5-19); Blood Urea Nitrogen 17 mg/dL (6-20); Calcium 9.8 mg/dL (8.5-10.5); Carbon Dioxide 25 mmol/L (22-29); Chloride 99 mmol/L (98-107); Creatinine Clr Calc Pharmacy 65.1788; Glomerular Filtration Rate 57.5 mL/min (90-130); Glucose 150 mg/dL (65-115); NT Pro B Type Natriuretic Pept 2106 pg/mL (0-125); Osmolality Calculated 290 mOsm/kg (285-295); Potassium 3.9 mmol/L (3.5-5.1); Sodium 138 mmol/L (136-145)
== END 2024-06-24 11:19 | disposition home or self-care (01) ==
LOC: RAD 11:19
PROVIDERS: Nurse Practitioner Family; PCP Family Medicine; Visit Provider Orthopaedic Surgery
DX: M48.02 Spinal stenosis, cervical region (principal); I42.8 Other cardiomyopathies; M50.21 Other cervical disc displacement, high cervical region; M47.892 Other spondylosis, cervical region; Z98.1 Arthrodesis status; I25.110 Atherosclerotic heart disease of native coronary artery with unstable angina pectoris; I25.2 Old myocardial infarction; I11.0 Hypertensive heart disease with heart failure; I50.23 Acute on chronic systolic (congestive) heart failure
CPT/HCPCS: 36415; 72141; 80048; 83880; 99214

== ENCOUNTER → 2024-07-03 14:34 | Outpatient (BNVA) | payer MEDICAID, SELFPAY ==
[2024-05-15 13:16] VITALS: BP 106/69; BMI 29.4
== END ==
PROVIDERS: PCP Family Medicine; Visit Provider Orthopaedic Surgery
DX: Z09 Encounter for follow-up examination after completed treatment for conditions other than malignant neoplasm (principal)
CPT/HCPCS: 99214

== ENCOUNTER → 2024-07-08 14:53 | Outpatient (BNVA) | payer MEDICAID, SELFPAY ==
[2024-05-15 13:16] VITALS: BP 106/69; BMI 29.4
== END ==
PROVIDERS: PCP Family Medicine; Visit Provider Podiatrist Foot & Ankle Surgery
DX: I73.9 Peripheral vascular disease, unspecified (principal); L60.3 Nail dystrophy
CPT/HCPCS: 99203

== ENCOUNTER → 2024-07-18 13:22 | Outpatient (BNVA) | payer MEDICAID, SELFPAY ==
[2024-05-15 13:16] VITALS: BP 106/69; BMI 29.4
== END ==
PROVIDERS: PCP Family Medicine; Visit Provider Specialist
DX: G43.711 Chronic migraine without aura, intractable, with status migrainosus (principal)
CPT/HCPCS: 64615; J0585; J9999

== ENCOUNTER → 2024-08-28 14:35 | Outpatient (BNVA) | payer MEDICAID, SELFPAY ==
[2024-05-15 13:16] VITALS: BP 106/69; BMI 29.4
== END ==
PROVIDERS: PCP Family Medicine; Visit Provider Internal Medicine
DX: I25.10 Atherosclerotic heart disease of native coronary artery without angina pectoris (principal); R07.89 Other chest pain; I25.5 Ischemic cardiomyopathy; I10 Essential (primary) hypertension; Z79.01 Long term (current) use of anticoagulants; Z79.82 Long term (current) use of aspirin; Z87.891 Personal history of nicotine dependence; I25.2 Old myocardial infarction
CPT/HCPCS: 99214

== ENCOUNTER 2024-09-10 23:42 | Observation (INO) | payer MEDICAID, SELFPAY ==
[2024-05-15 13:16] VITALS: BP 106/69; BMI 29.4
[2024-09-10 23:43] VITALS: BP 145/107; PULSE 96; RESP 20; TEMP 36.6; O2SAT 99; BMI 32.3
[2024-09-10 23:52] VITALS: BP 145/107; PULSE 98; RESP 22; O2SAT 98
--- NOTE | 2024-09-10 23:52 | ECG_ITS ---
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: : 1970 Requested By: Keanu Cali Order Number: [id number] Clemencia MD: HAYDEE ROGEL Measurements Intervals Jackson Rate: 101 P: 52 IL: 171 QRS: -20 QRSD: 107 T: 120 QT: 350 QTc: 454 Interpretive Statements SINUS TACHYCARDIA LOW QRS VOLTAGE IN PRECORDIAL LEADS [QRS DEFLECTION < 1.0 mV IN CHEST LEADS] SEPTAL MYOCARDIAL INFARCTION , OF INDETERMINATE AGE [40+ ms Q WAVE IN V1/V2] Compared to ECG 06/09/2024 18:07:37 Low QRS voltage now present Sinus rhythm no longer present T-wave abnormality no longer present Possible ischemia no longer present Myocardial infarct finding still present Electronically Signed On 09-13-2024 23:47:05 CDT by HAYDEE ROGEL [email or web address] [email or web address]
--- NOTE | 2024-09-10 23:59 | XRR_ITS ---
PROCEDURE INFORMATION: Exam: XR Chest Exam date and time: 09/11/2024 12:09 AM Age: 53 years old Clinical indication: Pain; Shortness of breath; Chest pressure; Prior surgery; Surgery date: 6+ months; Surgery type: Pacemaker; Additional info: Chest pain, SOB TECHNIQUE: Imaging protocol: Radiologic exam of the chest. Views: 1 view. COMPARISON: CR XR chest 1V portable [id number] 06/09/2024 12:25 PM FINDINGS: Tubes, catheters and devices: A defibrillator device is present, and its leads are in appropriate position. Post ACDF and posterior instrumentation of the lower cervical spine. Lungs: Unremarkable. No consolidation. Pleural spaces: Unremarkable. No pleural effusion. No pneumothorax. Heart/Mediastinum: Unremarkable. No cardiomegaly. Vasculature: There are aortic arch calcifications. Bones/joints: Mild degenerative disease of bilateral acromioclavicular joints. There are mild degenerative changes of the glenohumeral joint. XR/XR chest 1V portable [id number] IMPRESSION: No acute cardiopulmonary process.
[2024-09-11] VITALS (25 sets, daily range): BP systolic 101–139; BP diastolic 65–91; PULSE 70–99; RESP 15–22; TEMP 36.4–36.7; O2SAT 94–99; BMI 34.0
[2024-09-11] MEDS: morphine 4 mg/mL SDV 1 mL IVP ×2 (00:09→03:45)
[2024-09-11] MEDS: nitroglycerin 1 gm/inch oint Pkt 1 INCH TOPICAL ×5 (00:16→23:52)
[2024-09-11 00:27] LABS: Basophils % 0.1 %; Eosinophils % 0.5 %; Hematocrit 41.8 % (37-53); Lymphocytes # 2.7 10^3/uL (0.8-4.8); Lymphocytes % 31.1 %; Mean Corpuscular HGB Conc 33.3 g/dL (30-55); Mean Corpuscular Hemoglobin 29.4 pg (27-33); Mean Corpuscular Volume 88.4 fl (82-101); Mean Platelet Volume 9.9 fL (7.4-10.4); Monocytes # 0.7 10^3/uL (0.2-0.9); Monocytes % 7.7 %; Neutrophils # 5.14 10^3/uL (1.8-7.7); Neutrophils % 60.2 %; Nucleated Red Blood Cells % 0 %; Platelet Count 217 10^3/cmm (157-399); Red Blood Count 4.73 10^6/uL (3.85-5.65); Red Cell Distribution Width 17.4 % (12.1-15.1); White Blood Count 8.53 10^3/uL (3.29-11.43)
--- NOTE | 2024-09-11 00:39 | W.ED.CHESTPA ---
HPI - Chest Pain General: Chief Complaint: Chest Pain Stated Complaint: CHEST PAIN Time Seen by Provider: 09/10/24 23:44 History of Present Illness: Pt with Hx of prior OK and coronary stents (placed around [facility] last year) presents with chest pain. The pain is described as difficult to characterize, located in the upper chest, and worsens with coughing and sometimes with exertion. Pt reports feeling run down, fatigued, and has had intermittent chest pain throughout the day, with some episodes of near-syncope. The pain reportedly improved after taking aspirin and three doses of nitroglycerin overnight. Pt also notes recent increased physical exertion while caring for his mother, which may have contributed to symptoms. Denies fever or recent cold symptoms. Pt is an ex-smoker. No current BP readings available due to a malfunctioning monitor, but a new one was delivered today. No mention of SOB, palpitations, or GI symptoms. Related Data Home Medications ?Medication ?Instructions ?Recorded ?Confirmed allopurinol 300 mg tablet 300 mg PO DAILY 05/22/24 08/28/24 aspirin 81 mg tablet,delayed 81 mg PO DAILY 05/22/24 08/28/24 release atorvastatin 40 mg tablet 40 mg PO QPM 05/22/24 08/28/24 nitroglycerin 0.4 mg sublingual 0.4 mg sublingual PRN PRN Pain 05/22/24 08/28/24 tablet pantoprazole 40 mg tablet,delayed 40 mg PO DAILY 05/22/24 08/28/24 release omega 3 35 mg-dha 25 mg-epa 5 1 tab PO DAILY 06/09/24 08/28/24 mg-fish oil 113.5 mg chewable tablet potassium chloride 10 mEq 10 meq PO BID 08/28/24 08/28/24 tablet,extended release (Klor-Con) sacubitril 24 mg-valsartan 26 mg 1 tab PO BID 08/28/24 08/28/24 tablet (Entresto) Previous Rx's ?Medication ?Instructions ?Recorded acetaminophen 325 mg tablet 650 mg (2 x 325 mg) PO Q6H PRN 05/25/24 Mild Pain #100 tabs colchicine 0.6 mg tablet 0.6 mg PO DAILY #30 tabs 05/25/24 bumetanide 1 mg tablet 1 mg PO DAILY #60 tabs 06/11/24 diazepam 5 mg tablet (Valium) 5 mg PO BID PRN anxiety #2 tabs 06/16/24 clopidogrel 75 mg tablet 75 mg PO DAILY #90 tabs 06/24/24 empagliflozin 10 mg tablet 10 mg PO DAILY #30 tabs 06/24/24 (Jardiance) metoprolol succinate 25 mg 12.5 mg (1/2 x 25 mg) PO DAILY #90 06/24/24 tablet,extended release 24 hr tabs hydrocodone 5 mg-acetaminophen 325 1 tab PO Q8H PRN pain 7 days #21 07/03/24 mg tablet tabs magnesium oxide 400 mg (241.3 mg 400 mg PO DAILY #90 tabs 07/22/24 magnesium) tablet Allergies Allergy/AdvReac Type Severity Reaction Status Date / Time adhesive tape Allergy Intermediate rash Verified 08/28/24 14:54 sulfamethoxazole (From Allergy SWOLLEN Verified 08/28/24 14:54 Sept) TONGUE trimethoprim (From ) Allergy SWOLLEN Verified 08/28/24 14:54 TONGUE [facility] PFSH: Medical History ST elevation myocardial infarction (STEMI) Ischemic cardiomyopathy Chest pain Gout attack Degenerative joint disease (DJD) of lumbar spine DJD (degenerative joint disease) of cervical spine Anesthesia complication prolonged sedation after anesthesia 06/26/2022 requiring ICU monitoring but no other intervention, not responsive to narcan; took 5-6 hours to wake up after surgery. Only thing identified is he had not slept for several days prior to surgery. Chronic migraine Depression Prediabetes History of narcotic use with prior pain treatment contract, not using regular narcotic pain control as of 06/26/2022 History of psychiatric care Acute encephalopathy Hypertension GERD (gastroesophageal reflux disease) Hyperlipidemia History of electroencephalogram 11/04/20 This was a normal routine EEG, awake and drowsy and asleep, with no behavioral or electrographic epileptiform activity. This patient was excessively sleepy and was not sleep deprived. Consider a sleep disorder if clinically appropriate. Bipolar disorder Gout [place] tick fever History of Holter monitoring 09/2019 baseline sinus tachycardia with heart rate of 135 bpm, no pauses or bradycardia, diminished heart rate variability 12/2019 baseline sinus rhythm at 94 bpm, symptomatic sinus tachycardia with heart rate 72-126 bpm Hyperparathyroidism s/p partial parathyroidectomy Bleeding per rectum Had anoscope done by Dr Garcia 08/30/2020 with no fistulae, sinuses, induration, abscess formation or fissures = normal findings Other stimulant dependence, in remission prior methamphetamine use Bilateral renal stones Has seen Dr Bhatti in past, non-obstructive, remote lithotripsy, otherwise monitored for symptoms Cervical disc disease With cervical radiculopathy, spondylosis, spondylosis with myelopathy B12 deficiency 09/2019 Generalized anxiety disorder Cannabis dependence, uncomplicated history, unknown if still using as of 06/26/2022 Carpal tunnel syndrome, left upper limb by nerve conduction study performed 05/2019, has not had surgery as of 06/26/2022 Surgical History Status post cervical discectomy 06/26/2022 Dr Mcghee anterior cervical discectomy C4/C5 with insertion of cage, instrumentation with anterior plate C4-C5, with C4-C7 posterior fusion and instrumentation, use of allograft History of esophagogastroduodenoscopy (EGD) 2015 History of colonoscopy 2016 S/P extracorporeal shock wave therapy History of parathyroidectomy partial, performed by Dr Henderson, never followed-up after surgery History of lumbar laminectomy 09/01/2020 Dr Mcghee L4/5 with bilateral partial facetectomy History of neck surgery 03/24/2020 Dr Mcghee Anterior discectomy with insertion of cage/instrumentation/use of allograft and anterior plate at C5/6 & C6/7 History of cholecystectomy History of knee surgery Left knee arthroscopy 08/[address] Campbell, had MRSA Family History Brother Hypertension Valvular heart disease Grandfather Hypertension History of open heart surgery Father History of open heart surgery Social History Smoking and tobacco/nicotine status: former use of tobacco/nicotine Alcohol intake: current Alcohol intake frequency: few times a week Alcohol type: beer Substance/Drug Use: former Household members: other Details: lives with mother who is a former [employer] nurse Marital status: Current occupational status: unemployed and disabled Physical Exam Const: COMMON NORMALS: no acute distress, patient oriented x3 and alert HENMT: COMMON NORMALS: normocephalic and atraumatic HEAD & SCALP: normocephalic and atraumatic Eye: COMMON NORMALS: Equal, round and reactive pupils present, EOMs intact bilaterally and no scleral icterus PUPIL: Yes Equal, round and reactive pupils present Chest: OTHER: Chest pain is reproducible with both deep inspiration and palpation of the chest. Pain is worse with coughing. Resp: COMMON NORMALS: normal respiratory effort and No retractions Cardio: COMMON NORMALS: regular rate, regular rhythm and No murmurs present (Cardio) RATE: regular rate RHYTHM: regular rhythm GI: COMMON NORMALS: Normal to inspection, nondistended, normoactive bowel sounds present, Soft to palpation and non-tender PALPATION: Yes Soft to palpation Neuro: COMMON NORMALS: patient oriented x3 SENSORIUM/ORIENTATION: Yes alert Skin: COMMON NORMALS: no rashes or lesions noted GENERAL SKIN EXAM: no rashes or lesions noted Course Vital Signs: Vital signs: Vital Signs Temperature 97.8 F 09/10/24 23:43 Pulse Rate 97 09/11/24 02:31 Respiratory Rate 15 09/11/24 01:29 Blood Pressure 112/90 09/11/24 02:31 Pulse Oximetry 98 09/11/24 02:31 Oxygen Delivery Me thod Room Air 09/11/24 02:31 MDM - Chest Pain Medical Decision Making In summary, patient is a 53-year-old male from home seen for chest pain and shortness of breath. He feels that he has overexerted himself. He has a history of coronary artery disease with stenting occurring roughly 9 months ago. He feels similar symptoms today. Even with morphine and nitro and aspirin, he still has some chest pressure. He is mildly tachypneic and heart rate is borderline tachycardic. Troponin is stable x 2 and EKG does not show ST segment changes. Given his ongoing symptoms, he will be observed by the hospitalist service with cardiac consultation. Patient is agreeable to the plan Lab Data 09/11/24 00:20 09/11/24 00:20 Radiology Impressions Chest X-Ray 09/10/24 23:59 IMPRESSION: No acute cardiopulmonary process. Laboratory Results WBC 8.53 10^3/uL (3.29-11.43) 09/11/24 00:20 RBC 4.73 10^6/uL (3.85-5.65) 09/11/24 00:20 Hgb 13.90 g/dL (11.27-16.99) 09/11/24 00:20 Hct 41.8 % (37-53) 09/11/24 00:20 MCV 88.4 fl (82-101) 09/11/24 00:20 MCH 29.4 pg (27-33) 09/11/24 00:20 MCHC 33.3 g/dL (30-55) 09/11/24 00:20 RDW 17.4 % (12.1-15.1) H 09/11/24 00:20 Plt Count 217 10^3/cmm (157-399) 09/11/24 00:20 MPV 9.9 fL (7.4-10.4) 09/11/24 00:20 Neut % (Auto) 60.2 % 09/11/24 00:20 Lymph % (Auto) 31.1 % 09/11/24 00:20 [place] % (Auto) 7.7 % 09/11/24 00:20 Eos % (Auto) 0.5 % 09/11/24 00:20 Baso % (Auto) 0.1 % 09/11/24 00:20 Neut # (Auto) 5.14 10^3/uL (1.8-7.7) 09/11/24 00:20 Lymph # (Auto) 2.7 10^3/uL (0.8-4.8) 09/11/24 00:20 [place] # (Auto) 0.7 10^3/uL (0.2-0.9) 09/11/24 00:20 Eos # (Auto) 0.0 10^3/uL (0.0-0.8) 09/11/24 00:20 Baso # (Auto) 0.0 10^3/uL (0.0-0.1) 09/11/24 00:20 Nucleated RBC % (auto) 0 % 09/11/24 00: Nucleated RBCs # 0.0 /100WBC 09/11/24 00:20 Sodium 140 mmol/L (136-145) 09/11/24 00:20 Potassium 3.7 mmol/L (3.5-5.1) 09/11/24 00:20 Chloride 102 mmol/L (98-107) 09/11/24 00:20 Carbon Dioxide 25 mmol/L (22-29) 09/11/24 00:20 Anion Gap 16.7 (5-19) 09/11/24 00:20 BUN 19 mg/dL (6-20) 09/11/24 00:20 Creatinine 1.4 mg/dL (0.7-1.2) H 09/11/24 00:20 GFR Calculation 52.8 mL/min (90-130) L 09/11/24 00:20 Glucose 116 mg/dL (65-115) H 09/11/24 00:20 Calculated Osmolality 293 mOsm/kg (285-295) 09/11/24 00:20 Calcium 10.2 mg/dL (8.5-10.5) 09/11/24 00:20 Total Bilirubin 0.7 mg/dL (0.15-1.2) 09/11/24 00:20 AST 19 U/L (0-40) 09/11/24 00:20 ALT 19 U/L (0-41) 09/11/24 00:20 Alkaline Phosphatase 159 U/L (40-130) H 09/11/24 00:20 Troponin T Baseline 11 ng/L (0-15) 09/11/24 00:20 Troponin T 120 Minute 12.10 ng/L (0-15) 09/11/24 02:19 Delta Troponin T 1.10 ABS# (0-10) 09/11/24 02:19 NT-Pro-B Natriuret Pep 2961 pg/mL (0-125) H 09/11/24 00:20 Total Protein 7.0 g/dL (6.6-8.7) 09/11/24 00:20 Albumin 4.4 g/dL (3.5-5.2) 09/11/24 00:20 Globulin 2.6 g/dL (1.3-4.6) 09/11/24 00:20 All radiology interpretation(s) finalized by discharge EKG Data EKG 1: Interpretation: Time?2343?sinus tachycardia, rate of 101, mild LVH and partial right bundle branch block pattern with negative Sgarbossa criteria, no T wave inversions, QTc = 408. Discharge Plan Discharge Patient Disposition: Placed in Observation Clinical Impression: Chest pain Coding Level of Care Code ED Emergency Response Coordinator for [facility]
[2024-09-11 00:47] LABS: Troponin(5th) Baseline 11 ng/L (0-15)
[2024-09-11 00:56] LABS: Alanine Aminotransferase 19 U/L (0-41); Albumin Level 4.4 g/dL (3.5-5.2); Alkaline Phosphatase 159 U/L (40-130); Anion Gap 16.7 (5-19); Aspartate Amino Transferase 19 U/L (0-40); Blood Urea Nitrogen 19 mg/dL (6-20); Calcium 10.2 mg/dL (8.5-10.5); Carbon Dioxide 25 mmol/L (22-29); Chloride 102 mmol/L (98-107); Creatinine Clr Calc Pharmacy 63.6188; Globulin 2.6 g/dL (1.3-4.6); Glomerular Filtration Rate 52.8 mL/min (90-130); Glucose 116 mg/dL (65-115); NT Pro B Type Natriuretic Pept 2961 pg/mL (0-125); Osmolality Calculated 293 mOsm/kg (285-295); Potassium 3.7 mmol/L (3.5-5.1); Sodium 140 mmol/L (136-145); Total Bilirubin 0.7 mg/dL (0.15-1.2)
[2024-09-11] MEDS: LORazepam 1 MG/0.5 ML injection 0.5 MG IVP (01:28)
[2024-09-11] MEDS: aspirin 81 mg Chew Tablet 324 MG PO (03:45)
[2024-09-11 04:08] LABS: Adenovirus Not Detected (NOT DETECT); Chlamydia Pneumoniae Not Detected (NOT DETECT); Coronavirus 229E,HKU1,NL63,OC4 Not Detected (NOT DETECT); Human Metapneumovirus Not Detected (NOT DETECT); Human Rhinovirus/Enterovirus Not Detected (NOT DETECT); Influenza A Not Detected (NOT DETECT); Influenza A H1 Not Detected (NOT DETECT); Influenza A H1-2009 Not Detected (NOT DETECT); Influenza A H3 Not Detected (NOT DETECT); Influenza B Not Detected (NOT DETECT); Mycoplasma Pneumoniae Not Detected (NOT DETECT); Parainfluenza Virus Type 1 Not Detected (NOT DETECT); Parainfluenza Virus Type 2 Not Detected (NOT DETECT); Parainfluenza Virus Type 3 Not Detected (NOT DETECT); Parainfluenza Virus Type 4 Not Detected (NOT DETECT); Respiratory Syncytial Virus A Not Detected (NOT DETECT); Respiratory Syncytial Virus B Not Detected (NOT DETECT); SARS-COV-2 Not Detected (NOT DETECT)
--- NOTE | 2024-09-11 04:41 | PM.HP ---
Providers/Chief Complaint Admitting Physician: Dr Lozano------- patient seen after 12 midnight Primary Care Provider: Soto Escamilla MD Chief Complaint: CHEST PAIN History of Present Illness Vivek Corral is a 53 year old male with medical history significant for cardiovascular risk factors and actual CAD who had had a heart attack in February 2024 after experiencing chest pains. Patient at that time underwent coronary artery stent placement. And is currently on Plavix. This morning patient presented to the emergency room with complaints of ongoing chest pain and shortness of breath that comes and goes. I was called to evaluate patient for admission. I have seen and evaluated patient and upon my trying to listen to the chest patient had an excruciating chest wall pain in the area of pacemaker placement. Patient had been with the pacemaker placement for over 2 months. In February it was noted that the patient had an ejection fraction of 15% post NJ. Patient was managing medication and then 2 months ago also patient had pacemaker placed. The tenderness is referring to surgical placement of the pacemaker area is painful and tender. Does not look infected but again infection cannot be ruled out. The duration of post pacemaker placed shows that the area should be healed by now and not having that much pain. Patient had multiple narcotics benzo and all combinations oral narcotics for pain and also sedatives with Ativan at home. At presentation by the emergency room doctor patient was sweaty very jittery and clammy sweating they gave him Ativan IV and that calmed him down and everything went away which was likely patient was withdrawing and complexing the leading diagnosis of chest pain and its complications EKG we are unremarkable for any acute process does have age indeterminant septal infarct, checks x-ray unremarkable troponin unremarkable. Patient is complaining of constant chest pain. Patient received full aspirin in the emergency room and received a therapeutic dose of Lovenox at 90 mg subcutaneously and nitro 1 inch topical to anterior chest wall. Review of Systems Narrative: System review upon 10 organ system review was entirely unremarkable except for cardiovascular with likely an atypical chest pain. Medications/Allergies Home Medications ?Medication ?Instructions ?Recorded ?Confirmed ?Last Taken ?Type allopurinol 300 mg tablet 300 mg PO DAILY 05/22/24 08/28/24 06/09/24 History aspirin 81 mg tablet,delayed 81 mg PO DAILY 05/22/24 08/28/24 06/09/24 History release atorvastatin 40 mg tablet 40 mg PO QPM 05/22/24 08/28/24 06/08/24 History nitroglycerin 0.4 mg sublingual 0.4 mg sublingual PRN PRN Pain 05/22/24 08/28/24 Unknown History tablet pantoprazole 40 mg tablet,delayed 40 mg PO DAILY 05/22/24 08/28/24 06/09/24 History release acetaminophen 325 mg tablet 650 mg (2 x 325 mg) PO Q6H PRN 05/25/24 08/28/24 Unknown Rx Mild Pain #100 tabs colchicine 0.6 mg tablet 0.6 mg PO DAILY #30 tabs 05/25/24 08/28/24 06/09/24 Rx omega 3 35 mg-dha 25 mg-epa 5 1 tab PO DAILY 06/09/24 08/28/24 06/09/24 History mg-fish oil 113.5 mg chewable tablet bumetanide 1 mg tablet 1 mg PO DAILY #60 tabs 06/11/24 08/28/24 06/09/24 Rx diazepam 5 mg tablet (Valium) 5 mg PO BID PRN anxiety #2 tabs 06/16/24 08/28/24 Unknown Rx clopidogrel 75 mg tablet 75 mg PO DAILY #90 tabs 06/24/24 08/28/24 Unknown Rx empagliflozin 10 mg tablet 10 mg PO DAILY #30 tabs 06/24/24 08/28/24 Unknown Rx (Jardiance) metoprolol succinate 25 mg 12.5 mg (1/2 x 25 mg) PO DAILY #90 06/24/24 08/28/24 Unknown Rx tablet,extended release 24 hr tabs hydrocodone 5 mg-acetaminophen 325 1 tab PO Q8H PRN pain 7 days #21 07/03/24 08/28/24 Unknown Rx mg tablet tabs magnesium oxide 400 mg (241.3 mg 400 mg PO DAILY #90 tabs 07/22/24 08/28/24 Unknown Rx magnesium) tablet potassium chloride 10 mEq 10 meq PO BID 08/28/24 08/28/24 Unknown History tablet,extended release (Klor-Con) sacubitril 24 mg-valsartan 26 mg 1 tab PO BID 08/28/24 08/28/24 Unknown History tablet (Entresto) Allergies Allergy/AdvReac Type Severity Reaction Status Date / Time adhesive tape Allergy Intermediate rash Verified 08/28/24 14:54 sulfamethoxazole (From Allergy SWOLLEN Verified 08/28/24 14:54 Septra) TONGUE trimethoprim (From Septra) Allergy SWOLLEN Verified 08/28/24 14:54 TONGUE PFSH Acute PFSH: Medical History ST elevation myocardial infarction (STEMI) Ischemic cardiomyopathy Chest pain Gout attack Degenerative joint disease (DJD) of lumbar spine DJD (degenerative joint disease) of cervical spine Anesthesia complication prolonged sedation after anesthesia 06/26/2022 requiring ICU monitoring but no other intervention, not responsive to narcan; took 5-6 hours to wake up after surgery. Only thing identified is he had not slept for several days prior to surgery. Chronic migraine Depression Prediabetes History of narcotic use with prior pain treatment contract, not using regular narcotic pain control as of 06/26/2022 History of psychiatric care Acute encephalopathy Hypertension GERD (gastroesophageal reflux disease) Hyperlipidemia History of electroencephalogram 11/04/20 This was a normal routine EEG, awake and drowsy and asleep, with no behavioral or electrographic epileptiform activity. This patient was excessively sleepy and was not sleep deprived. Consider a sleep disorder if clinically appropriate. Bipolar disorder Gout [place] tick fever History of Holter monitoring 09/2019 baseline sinus tachycardia with heart rate of 135 bpm, no pauses or bradycardia, diminished heart rate variability 12/2019 baseline sinus rhythm at 94 bpm, symptomatic sinus tachycardia with heart rate 72-126 bpm Hyperparathyroidism s/p partial parathyroidectomy Bleeding per rectum Had anoscope done by Dr Garcia 08/30/2020 with no fistulae, sinuses, induration, abscess formation or fissures = normal findings Other stimulant dependence, in remission prior methamphetamine use Bilateral renal stones Has seen Dr Bhatti in past, non-obstructive, remote lithotripsy, otherwise monitored for symptoms Cervical disc disease With cervical radiculopathy, spondylosis, spondylosis with myelopathy B12 deficiency 09/2019 Generalized anxiety disorder Cannabis dependence, uncomplicated history, unknown if still using as of 06/26/2022 Carpal tunnel syndrome, left upper limb by nerve conduction study performed 05/2019, has not had surgery as of 06/26/2022 Surgical History Status post cervical discectomy 06/26/2022 Dr Mcghee anterior cervical discectomy C4/C5 with insertion of cage, instrumentation with anterior plate C4-C5, with C4-C7 posterior fusion and instrumentation, use of allograft History of esophagogastroduodenoscopy (EGD) 2015 History of colonoscopy 2016 S/P extracorporeal shock wave therapy History of parathyroidectomy partial, performed by Dr Henderson, never followed-up after surgery History of lumbar laminectomy 09/01/2020 Dr Mcghee L4/5 with bilateral partial facetectomy History of neck surgery 03/24/2020 Dr Mcghee Anterior discectomy with insertion of cage/instrumentation/use of allograft and anterior plate at C5/6 & C6/7 History of cholecystectomy History of knee surgery Left knee arthroscopy 08/[address] Campbell, had MRSA Family History Brother Hypertension Valvular heart disease Grandfather Hypertension History of open heart surgery Father History of open heart surgery Social History Smoking and tobacco/nicotine status: former use of tobacco/nicotine Alcohol intake: current Alcohol intake frequency: few times a week Alcohol type: beer Substance/Drug Use: former Household members: other Details: lives with mother who is a former [employer] Marital status: Current occupational status: unemployed and disabled Vitals/I&O/Wt Last Vital Signs Temp 97.8 F 09/10/24 23:43 Pulse 85 09/11/24 03:48 Resp 18 09/11/24 03:48 BP 121/86 09/11/24 03:48 Pulse Ox 98 09/11/24 03:48 O2 Del Method Room Air 09/11/24 03:48 Weight last 48 hrs Weight 90.718 kg Physical Exam Narrative: General Patient is anxious and jittery diaphoretic with resolution of this upon receiving Ativan HEENT normocephalic/atraumatic neck neck is supple cardiovascular heart rate is regular lungs are pretty much clear abdomen is soft nontender nondistended unremarkable Neurology nonfocal extremities intact no edema has good pulses neurology has no focality lab studies lab studies reviewed and noted. Data 09/11/24 00:20 09/11/24 00:20 A&P Assessment and plan (1) Chest pain: - Patient is being admitted under observation to optimize chest pain and evaluate with cardiology consultation - This is because patient had significant cardiovascular risk had been status post coronary artery disease in an ST elevation NJ in the past and also had had a recent non-ST elevation and had had 2 stent placed in February 2024 when he had an NJ. Patient received full aspirin 325 mg this to be continued along with Nitropaste 1 inch to anterior chest wall every [address] James Cortez will be consulting on this patient this morning I have ordered Lexiscan because of the atypical nature of this patient's pain Patient is tender in the left precordial overlying the pacemaker placed a little over 2 months ago Patient kept n.p.o. in case cardiology wants to do a different plan suggest cardiac catheterization versus stress test (2) Acute on chronic systolic congestive heart failure: - Patient with ejection fraction of 15% post myocardial infarction - Now has pacemaker placed for care and management - Patient is not in any overt heart failure at this time must continue to treat and optimize. - Home medication had not been updated yet and was updated kindly reconcile. (3) Coronary artery disease: Revealed cardiac heart disease significant for CAD post an NJ last year patient's status post 2 stent placement (4) Recent non-ST elevation myocardial infarction: - This was resent as a history continue antiplatelets statins and beta-alli (5) Ischemic cardiomyopathy: Continue home medication continue antiplatelets statins and nitrates (6) Gout attack: Continue gouty medication at home PDMP PDMP Reviewed: Not Reviewed Attestations Medical Necessity Statement*: I attest that this patient meets the criteria for observation stay for 23 hours with chest pain and history of coronary artery disease NJ and stent placement that was only less than a month continue Plavix as we are in the outpatient. Coding Level of Care Code 81549 Diagnoses Precordial pain R07.2 Chest pain type: precordial pain Acute on chronic systolic congestive heart failure I50.23 Coronary artery disease involving [place] coronary artery of [place] heart with unstable angina pectoris I25.110 Coronary Disease-Associated Artery/Lesion type: [place] artery [place] vs. transplanted heart: [place] heart Associated angina: with unstable angina Recent non-ST elevation myocardial infarction Ischemic cardiomyopathy I25.5 Gout attack M10.9 Time Spent (min) 60
[2024-09-11] MEDS: enoxaparin 100 mg/mL Syringe 90 MG SUBCUT (04:46)
[2024-09-11 06:09] LABS: Bilirubin Urine Negative (Negative); Blood Urine Negative (Negative); Glucose Urine UA 3+ (Normal); Ketones Urine Negative (Negative); Leukocyte Esterase Urine Negative (Negative); Nitrate Urine Negative (Negative); Protein Urine Negative (Negative); Urine Appearance Clear (CLEAR); Urine Color Yellow (Yellow); Urobilinogen Urine 0.2 mg/dL (Negative); pH Urine 5.5 (5-7)
[2024-09-11 06:14] LABS: Add Urine Microscopic? YES; Bacteria Urine None Seen /hpf; RBC Urine 0-2 /hpf (0-2); Squamous Epithelial Cell Urine 0-5 /hpf (0-5)
[2024-09-11] MEDS: morphine 4 mg/mL SDV 1 mL 2 MG IVP ×5 (06:27→23:52)
--- NOTE | 2024-09-11 06:33 | PC.NURSE ---
Pt's nitro patch removed @0628. Pt stated he does not believe the nitro is helping with his chest pain. While removing the patch pt verbalized pain upon the paste being wiped off and pulled away.
[2024-09-11 06:38] LABS: Basophils % 0.1 %; Eosinophils # 0.1 10^3/uL (0.0-0.8); Eosinophils % 1.3 %; Hematocrit 41.7 % (37-53); Lymphocytes # 2.7 10^3/uL (0.8-4.8); Lymphocytes % 34.8 %; Mean Corpuscular HGB Conc 32.9 g/dL (30-55); Mean Corpuscular Volume 88.2 fl (82-101); Mean Platelet Volume 10.1 fL (7.4-10.4); Monocytes # 0.7 10^3/uL (0.2-0.9); Monocytes % 8.3 %; Neutrophils # 4.32 10^3/uL (1.8-7.7); Neutrophils % 55.1 %; Nucleated Red Blood Cells % 0 %; Platelet Count 204 10^3/cmm (157-399); Red Blood Count 4.73 10^6/uL (3.85-5.65); Red Cell Distribution Width 17.4 % (12.1-15.1); White Blood Count 7.84 10^3/uL (3.29-11.43)
[2024-09-11 06:52] LABS: Estmated Average Glucose 151; Hemoglobin A1C 6.9 % (4.0-6.0)
[2024-09-11 07:02] LABS: Lactic Sepsis W/Reflex 0.9 mmol/L (0.5-2.2)
[2024-09-11 07:03] LABS: INR 1.01 (0.8-1.2)
[2024-09-11 07:12] LABS: Alanine Aminotransferase 19 U/L (0-41); Albumin Level 4.3 g/dL (3.5-5.2); Alkaline Phosphatase 164 U/L (40-130); Anion Gap 14.8 (5-19); Aspartate Amino Transferase 20 U/L (0-40); Blood Urea Nitrogen 22 mg/dL (6-20); Calcium 9.9 mg/dL (8.5-10.5); Carbon Dioxide 27 mmol/L (22-29); Chloride 99 mmol/L (98-107); Chol HDL Ratio 3.52 mg/dL (1.0-5.00); Cholesterol 169 mg/dL (0-200); Creatinine Clr Calc Pharmacy 59.3776; Globulin 2.7 g/dL (1.3-4.6); Glomerular Filtration Rate 48.8 mL/min (90-130); Glucose 135 mg/dL (65-115); HDL Cholesterol 48 mg/dL (60-100); LDL Cholesterol Calculated 91 mg/dL (50-129); Magnesium 2.2 mg/dL (1.7-2.3); NT Pro B Type Natriuretic Pept 3817 pg/mL (0-125); Osmolality Calculated 289 mOsm/kg (285-295); Phosphorus 3.6 mg/dL (2.5-4.5); Potassium 3.8 mmol/L (3.5-5.1); Sodium 137 mmol/L (136-145); Thyroid Stimulating Hormone 1.85 uIU/mL (0.27-4.20); Total Bilirubin 0.8 mg/dL (0.15-1.2); Triglycerides 150 mg/dL (0-150)
--- NOTE | 2024-09-11 07:58 | USCV_ITS ---
EllisVivek osborn Age: 53 Gender: M : 1970 Exam Date: 09/11/2024 13:51 Ordering Phys: Yun Lozano MD Technologist: NATHANIEL [place] [facility] [place]: CP. hx of defib implant surg BP: 125 / 65 HR: 75 Rhythm: Sinus Technical Quality: Adequate MEASUREMENTS (Male / Female) Normal Values 2D ECHO LV Diastolic Diameter PLAX 5.5 cm 4.2 - 5.9 / 3.9 - 5.3 cm IVS Diastolic Thickness 0.9 cm 0.6 - 1.0 / 0.6 - 0.9 cm IVS Systolic Thickness 1.3 cm LVPW Diastolic Thickness 0.8 cm 0.6 - 1.0 / 0.6 - 0.9 cm LVPW Systolic Thickness 1.0 cm LVOT Diameter 2.0 cm LV Ejection Fraction 2D Teich 44.1 % LV Ejection Fraction MOD 4C 42.4 % LV Ejection Fraction MOD 2C 42.1 % LV Ejection Fraction 2C AL 43.7 % LA Diameter 3.7 cm RA Systolic Volume 4C AL 61.0 ml RA Systolic Volume 4C MOD 58.1 ml LA Sys Volume AL 52.3 cm cubed LA Sys Volume Index AL 25.0 cm cubed/m squared Aorta at Sinotubular Diameter 2.2 cm M-MODE LA Ao Ratio MM 1.5 AV Cusp Separation MM 1.2 cm DOPPLER AV Peak Velocity 84.0 cm/s LVOT Peak Velocity 56.0 cm/s AV Area Cont Eq vti 2.1 cm squared AV Area Cont Eq pk 2.1 cm squared MV Peak Velocity 114.0 cm/s MV Area PHT 6.3 cm squared Mitral E to A Ratio 2.9 TV Peak Velocity 110.0 cm/s TR Peak Velocity 161.0 cm/s TR Peak Gradient 10.4 mmHg TV Peak E Velocity 69.0 cm/s PV Peak Velocity 75.0 cm/s FINDINGS Left Ventricle Moderately increased left ventricular cavity size. Severely decreased left ventricular systolic function. Left ventricular ejection fraction is estimated at 35 %. There appeared to be basal to distal anterior septal and apical akinesis with thinning of the wall suggestive of old myocardial infarction in LAD territory.Grade III/IV diastolic dysfunction (restrictive filling pattern), severely elevated filling pressures. Right Ventricle The right ventricle is normal in size and function. Right Atrium The right atrium is normal in size. Left Atrium The left atrium is normal in size. Mitral Valve Structurally normal mitral valve without significant stenosis or prolapse. There is no mitral regurgitation. Aortic Valve Structurally normal aortic valve without significant sclerosis or stenosis. There is no aortic regurgitation. Tricuspid Valve Structurally normal tricuspid valve without significant stenosis or regurgitation. Pulmonary artery systolic pressure is normal. Pulmonic Valve Structurally normal pulmonic valve without significant stenosis. There is no pulmonic regurgitation. Pericardium Normal pericardium without effusion. Aorta Normal ascending aorta dimension. IVC The inferior vena cava appears normal. CONCLUSIONS Moderately increased left ventricular cavity size. Severely decreased left ventricular systolic function. Left ventricular ejection fraction is estimated at 35 %. There appeared to be basal to distal anterior septal and apical akinesis with thinning of the wall suggestive of old myocardial infarction in LAD territory.Grade III/IV diastolic dysfunction (restrictive filling pattern), severely elevated filling pressures. The left atrium is normal in size. There is no pericardial effusion. Right atrial pressure is around 5 mm of mercury. Lisa Ramirez MD (Electronically Signed) Final Date: 11 September 2024 21:21 S
[2024-09-11] MEDS: aspirin 325 mg EC Tablet PO (09:28)
[2024-09-11] MEDS: pantoprazole DR 40 mg Tablet PO (09:28)
[2024-09-11] MEDS: clopidogrel 75 mg Tablet PO (09:28)
[2024-09-11] MEDS: docusate sodium 100 mg Capsule PO ×2 (09:28→17:38)
--- NOTE | 2024-09-11 10:51 | ECG_ITS ---
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
--- NOTE | 2024-09-11 11:04 | PC.NURSE ---
Cardiac diet ordered per Dr. Bowers
--- NOTE | 2024-09-11 12:03 | PM.PN ---
Subjective Subjective: seen this morning complains of cp intermittently, at times reproducible to palpation at this moment, not having cp resting comfortably in bed Vitals/I&O/Wt Last Vital Signs Temp 97.6 F 09/11/24 11:22 Pulse 77 09/11/24 11:22 Resp 16 09/11/24 11:22 BP 106/74 09/11/24 11:22 Pulse Ox 94 09/11/24 11:22 O2 Del Method Room Air 09/11/24 11:22 Weight last 48 hrs Weight 95.481 kg Weight 90.718 kg Physical Exam Narrative: General AOx3 HEENT normocephalic/atraumatic neck neck is supple cardiovascular heart rate is regular lungs are pretty much clear abdomen is soft nontender nondistended unremarkable Neurology nonfocal extremities: no edema bl LE lab studies lab studies reviewed and noted. Data 09/11/24 06:20 09/11/24 06:20 A&P Assessment and plan (1) Chest pain: - Patient is being admitted under observation to optimize chest pain and evaluate with cardiology consultation - This is because patient had significant cardiovascular risk had been status post coronary artery disease in an ST elevation [place] in the past and also had had a recent non-ST elevation and had had 2 stent placed in February 2024 when he had an NH. Patient received full aspirin 325 mg this to be continued along with Nitropaste 1 inch to anterior chest wall every [address] James Cortez will be consulting on this patient this morning I have ordered Lexiscan because of the atypical nature of this patient's pain Patient is tender in the left precordial overlying the pacemaker placed a little over 2 months ago Patient kept n.p.o. in case cardiology wants to do a different plan suggest cardiac catheterization versus stress test (2) Acute on chronic systolic congestive heart failure: - Patient with ejection fraction of 15% post myocardial infarction - Now has pacemaker placed for care and management - Patient is not in any overt heart failure at this time must continue to treat and optimize. - Home medication had not been updated yet and was updated kindly reconcile. (3) Coronary artery disease: Revealed cardiac heart disease significant for CAD post an NH last year patient's status post 2 stent placement (4) Recent non-ST elevation myocardial infarction: - This was resent as a history continue antiplatelets statins and beta-alli (5) Ischemic cardiomyopathy: Continue home medication continue antiplatelets statins and nitrates (6) Gout attack: Continue gouty medication at home Plan 09/11/2024 continue mgmt as per Hnp stress test in AM npo at midnight august eat today check echo urine drug screen PDMP PDMP Reviewed: Not Reviewed Attestations Medical Necessity Statement*: stress test in am Diagnoses Precordial pain R07.2 Chest pain type: precordial pain Acute on chronic systolic congestive heart failure I50.23 Coronary artery disease involving [place] coronary artery of [place] heart with unstable angina pectoris I25.110 Coronary Disease-Associated Artery/Lesion type: [place] artery [place] vs. transplanted heart: [place] heart Associated angina: with unstable angina Recent non-ST elevation myocardial infarction Ischemic cardiomyopathy I25.5 Gout attack M10.9
--- NOTE | 2024-09-11 14:44 | P.CONIM_ITS ---
<Statement entered by Lisa Ramirez MD - 09/12/24 22:34> Patient was evaluated and cared for in conjunction with an advanced practice practitioner. I personally examined the patient and reviewed the chart and all pertinent data including imaging, telemetry, and laboratory results. I discussed the patient in detail with the advanced practice practitioner. Please see their note for complete H&P testing result and agreed upon plan of care for the patient. Providers/Reason For Consult 2 Consulting Physician/Specialty*: Lisa Ramirez MD Reason for Consult*: Chest pain Requesting Physician: Dr. Bowers Attending Physician: Aide Bowers MD Primary Care Provider: Soto Escamilla MD History of Present Illness History of Present Illness Vivek Corral is a 53 year old male with history of ischemic cardiomyopathy stent to the mid LAD and proximal circumflex on March 2024. EF was seen in June at 25 to 30% and ICD was placed recently. He has had an angiogram twice since his procedure that was negative. He had this due to recurring chest pain. He came to the ER yesterday from what he tells me is shortness of breath on exertion and he overdid it lifting his mother . He states that he has a lot of chest discomfort on the left side where they placed his ICD that is mainly musculoskeletal. Denies any chest pain at this time. His tropes were fairly normal at 02-18-2014 0.2. Creatinine slightly increased at 1.5. Entresto he states was previously held several days ago. He does take metoprolol 12.5 at home. Blood pressure and heart rate well-controlled. Overall he appears well compensated. Review of Systems 2 Narrative: Consitutional: denies fever, chills, body aches, or changes in appetite, denies abnormal weight loss Eyes: Denies changes in vision Card: Denies chest pain, palpitations, irregular heart rhythm, edema, syncope, shortness of breath, orthopnea, leg pain with exertion Resp: Denies shortness of breath, denies hemoptysis, denies cough GI: denies abdominal pain, denies nausea or voimting, denies blood in stool : denies blood in urine, denies dysuria Musc: Reports tenderness to the left chest where defibrillator was placed Skin: Denies rash, lesions, or wounds, denies changes to skin color Neuro: Denies nubmness in extremities, h/a, s/s of stroke Gomez: Denies easy bruiding/bleeding Medications/Allergies Home Medications ?Medication ?Instructions ?Recorded ?Confirmed ?Last Taken ?Type allopurinol 300 mg tablet 300 mg PO DAILY 05/22/2408/3109/10/24 07:00 History aspirin 81 mg tablet,delayed 81 mg PO DAILY 05/22/24 0 09/11/24 09/10/24 09:00 History release atorvastatin 40 mg tablet 40 mg PO QPM 05/22/2409/09/24 20:00 History nitroglycerin 0.4 mg sublingual 0.4 mg sublingual PRN PRN Pain 05/22/24 09/11/24 Unknown History tablet pantoprazole 40 mg tablet,delayed 40 mg PO DAILY 05/2209/11/24 09/10/24 History release acetaminophen 325 mg tablet 650 mg (2 x 325 mg) PO Q6H PRN 05/25/24 09/11/24 Unknown Rx Mild Pain #100 tabs colchicine 0.6 mg tablet 0.6 mg PO DAILY #30 tabs 09/11/24 09/10/24 Rx omega 3 35 mg-dha 25 mg-epa 5 1 tab PO DAILY 06/09/24 09/11/24 09/10/24 History mg-fish oil 113.5 mg chewable tablet bumetanide 1 mg tablet 1 mg PO DAILY #60 tabs 06/1109/11/24 09/10/24 08:00 Rx clopidogrel 75 mg tablet 75 mg PO DAILY #90 tabs 06/0709/11/24 09/10/24 Rx empagliflozin 10 mg tablet 10 mg PO DAILY #30 tabs 09/11/24 09/10/24 Rx (Jardiance) hydrocodone 5 mg-acetaminophen 325 1 tab PO Q8H PRN pa in 7 days #21 07/03/24 09/11/24 Unknown Rx mg tablet tabs magnesium oxide 400 mg (241.3 mg 400 mg PO DAILY #90 t abs 07/22/24 09/11/24 09/10/24 Rx magnesium) tablet potassium chloride 10 mEq 10 meq PO BID 08/28/2409/1109/10/24 History tablet,extended release (Klor-Con) sacubitril 24 mg-valsartan 26 mg 1 tab PO BID 08/28/24 09/11/24 09/08/24 History tablet (Entresto) diazepam 2 mg tablet 2 mg PO BEDTIME 09/11/2408/3109/09/24 20:00 History diazepam 5 mg tablet 5 mg PO DAILY PRN Anxiety 09/11/24 Unknown History furosemide 40 mg tablet 40 mg PO DAILY PRN Weight Ga in 09/11/24 09/11/24 Unknown History metoprolol succinate 25 mg 25 mg PO DAILY 09/11/2408/3109/10/24 History tablet,extended release 24 hr oxycodone-acetaminophen 10 mg-325 1 tab PO Q4H PRN Sev ere Pain 09/11/24 09/11/24 Unknown History mg tablet (Scale Score 7-10) Allergies Allergy/AdvReac Type Severity Reaction Status Date / Time adhesive tape Allergy Intermediate rash Verified 08/28/24 14:54 sulfamethoxazole (From Allergy SWOLLEN Verified 08/28/24 14:54 Septra) TONGUE trimethoprim (From ) Allergy SWOLLEN Verified 08/28/24 14:54 TONGUE Current Medications Generic Name Dose Route Start Last Admin Trade Name Freq PRN Reason Stop Dose Admin Aspirin 325 mg 09/11/24 09:00 09/11/24 09:28 Aspirin 325 Mg Ec Tablet PO 325 mg DAILY JUNIOR Administration Clopidogrel Bisulfate 75 mg 09/11/24 09:00 09/11/24 09:28 Clopidogrel 75 Mg Tablet PO 75 mg DAILY JUNIOR Administration Docusate Sodium 100 mg 09/11/24 09:00 09/11/24 09:28 Docusate Sodium 100 Mg Capsule PO 100 mg BID JUNIOR Administration Morphine Sulfate 2 mg 09/11/24 04:56 09/11/24 09:28 Morphine 4 Mg/Ml Sdv 1 Ml IVP 2 mg Q4H PRN Administration SEVERE PAIN Nitroglycerin 1 inch 09/11/24 04:45 09/11/24 13:05 Nitroglycerin 1 Gm/Inch Oint Pkt TOPICAL 1 inch Q6H JUNIOR Administration Pantoprazole Sodium 40 mg 09/11/24 09:00 09/11/24 09:[address] 40 Mg Tablet PO 40 mg DAILY JUNIOR Administration PFSH Acute 2 PFSH: Medical History ST elevation myocardial infarction (STEMI) Ischemic cardiomyopathy Chest pain Gout attack Degenerative joint disease (DJD) of lumbar spine DJD (degenerative joint disease) of cervical spine Anesthesia complication prolonged sedation after anesthesia 06/26/2022 requiring ICU monitoring but no other intervention, not responsive to narcan; took 5-6 hours to wake up after surgery. Only thing identified is he had not slept for several days prior to surgery. Chronic migraine Depression Prediabetes History of narcotic use with prior pain treatment contract, not using regular narcotic pain control as of 06/26/2022 History of psychiatric care Acute encephalopathy Hypertension GERD (gastroesophageal reflux disease) Hyperlipidemia History of electroencephalogram 11/04/20 This was a normal routine EEG, awake and drowsy and asleep, with no behavioral or electrographic epileptiform activity. This patient was excessively sleepy and was not sleep deprived. Consider a sleep disorder if clinically appropriate. Bipolar disorder Gout [place] tick fever History of Holter monitoring 09/2019 baseline sinus tachycardia with heart rate of 135 bpm, no pauses or bradycardia, diminished heart rate variability 12/2019 baseline sinus rhythm at 94 bpm, symptomatic sinus tachycardia with heart rate 72-126 bpm Hyperparathyroidism s/p partial parathyroidectomy Bleeding per rectum Had anoscope done by Dr Garcia 08/30/2020 with no fistulae, sinuses, induration, abscess formation or fissures = normal findings Other stimulant dependence, in remission prior methamphetamine use Bilateral renal stones Has seen Dr Bhatti in past, non-obstructive, remote lithotripsy, otherwise monitored for symptoms Cervical disc disease With cervical radiculopathy, spondylosis, spondylosis with myelopathy B12 deficiency 09/2019 Generalized anxiety disorder Cannabis dependence, uncomplicated history, unknown if still using as of 06/26/2022 Carpal tunnel syndrome, left upper limb by nerve conduction study performed 05/2019, has not had surgery as of 06/26/2022 Surgical History Status post cervical discectomy 06/26/2022 Dr Mcghee anterior cervical discectomy C4/C5 with insertion of cage, instrumentation with anterior plate C4-C5, with C4-C7 posterior fusion and instrumentation, use of allograft History of esophagogastroduodenoscopy (EGD) 2016 History of colonoscopy 2016 S/P extracorporeal shock wave therapy History of parathyroidectomy partial, performed by Dr Henderson, never followed-up after surgery History of lumbar laminectomy 09/01/2020 Dr Mcghee L4/5 with bilateral partial facetectomy History of neck surgery 03/24/2020 Dr Mcghee Anterior discectomy with insertion of cage/instrumentation/use of allograft and anterior plate at C5/6 & C6/7 History of cholecystectomy History of knee surgery Left knee arthroscopy 08/[address] Campbell, had MRSA Family History Brother Hypertension Valvular heart disease Grandfather Hypertension History of open heart surgery Father History of open heart surgery Social History Smoking and tobacco/nicotine status: former use of tobacco/nicotine Alcohol intake: current Alcohol intake frequency: few times a week Alcohol type: beer Substance/Drug Use: former Household members: other Details: lives with mother who is a former [employer] [facility] [employer] nurse Marital status: Current occupational status: unemployed and disabled Vitals/I&O/Wt Last Vital Signs Temp 97.6 F 09/11/24 11:22 Pulse 77 09/11/24 13:05 Resp 16 09/11/24 11:22 BP 106/74 09/11/24 13:05 Pulse Ox 94 09/11/24 11:22 O2 Del Method Room Air 09/11/24 11:22 09/10/24 09/11/24 09/11/24 22:59 06:59 14:59 Intake Total 118 / 118 Balance 118 / 118 Weight last 48 hrs Weight 210 lb 8 oz Weight 200 lb Physical Exam 2 Narrative: General: No apparent distress, healthy appearing, well nourished HENMT: normoceophalic Muskuloskeletal: Full ROM Respiratory: Normal respiratory effort, clear to auscultation bilaterally throughout all lung wolf, no use of accessory muscles Cardio: No JVD, regular rate, regular rhythm, S1 S2 normal, no murmurs, peripheral pulses 2+ radial palpated bilaterally GI: Normal to inspection, nondistended Extremities: Full ROM, normal, normal capillary refill, no cyanosis or edema Neuro: Alert and oriented x4, no focal motor deficits Psych: Affect normal, denies suicidal ideation, mental status grossly normal Skin: Incision site to defibrillator clean dry intact well-approximated no redness or signs of infection present Data 09/11/24 06:20 09/11/24 06:20 A&P Assessment and plan (1) Cardiomyopathy: (2) Ischemic cardiomyopathy: (3) CAD (coronary artery disease): (4) Chest pain: Plan Patient's pain is most consistent with musculoskeletal pain but he does have shortness of breath on exertion. To rule out progression of coronary artery disease we will get stress test on patient in the morning. Continue to monitor for further episodes of chest pain and continue current aspirin and Plavix. Overall he appears euvolemic so we will hold off on Lasix at this time due to patient has ZOEY with creatinine at 1.5. Once his creatinine returns to baseline may consider adding Entresto again. Echo has been done but not read. Further recommendations to follow this. Thank you, Dr. Bowers, for allowing us to care for this very pleasant 53 year old gentleman. PDMP PDMP Reviewed: Not Reviewed Consult Attestations 2 Medical Necessity Statement: Deferred to primary. Coding Level of Care Code Acute Code for Chg Fwd Diagnoses Other cardiomyopathy I42.8 Cardiomyopathy type: other Ischemic cardiomyopathy I25.5 Coronary artery disease of [place] artery of [place] heart with stable angina pectoris I25.118 Associated angina: with stable angina Coronary Disease-Associated Artery/Lesion type: [place] artery [place] vs. transplanted heart: [place] heart Precordial pain R07.2 Chest pain type: precordial pain
[2024-09-11] MEDS: sennosides 8.6 mg Tablet 17.2 MG PO (20:50)
[2024-09-12] VITALS (10 sets, daily range): BP systolic 104–154; BP diastolic 65–93; PULSE 69–83; RESP 16–19; TEMP 36.3–36.8; O2SAT 96–98
--- NOTE | 2024-09-12 03:28 | PC.NURSE ---
pt requested to remove nitro patch due to getting headache from it. nurse informed pt that if chest pain returns patch will have to be placed back on. pt agree. Dr. Brian notified.
[2024-09-12] MEDS: morphine 4 mg/mL SDV 1 mL 2 MG IVP ×2 (03:54→09:53)
--- NOTE | 2024-09-12 06:12 | P.PN_ITS ---
Subjective 2 Subjective: Seen this morning. Seen right after stress test. Patient states the stress test took the wind out of him however he feels fine at this time. Denies any chest pain or shortness of breath. Vitals/I&O/Wt Last Vital Signs Temp 97.8 F 09/12/24 03:27 Pulse 77 09/12/24 03:27 Resp 16 09/12/24 03:54 BP 113/71 09/12/24 03:27 Pulse Ox 96 09/12/24 03:27 O2 Del Method Room Air 09/12/24 00:00 09/11/24 09/11/24 09/12/24 14:59 22:59 06:59 Intake Total 118 / 118 460 / 578 0 / 578 Balance 118 / 118 460 / 578 0 / 578 Weight last 48 hrs Weight 95.209 kg Weight 95.481 kg Weight 90.718 kg Physical Exam 2 Narrative: General AOx3 HEENT normocephalic/atraumatic neck neck is supple cardiovascular heart rate is regular lungs: Clear to auscultation bilaterally abdomen is soft nontender nondistended unremarkable Neurology nonfocal extremities: no edema bl LE Data 09/12/24 09:13 09/12/24 09:13 A&P Assessment and plan (1) Chest pain: - Patient is being admitted under observation to optimize chest pain and evaluate with cardiology consultation - This is because patient had significant cardiovascular risk had been status post coronary artery disease in an ST elevation [place] in the past and also had had a recent non-ST elevation and had had 2 stent placed in February 2024 when he had an [place]. Patient received full aspirin 325 mg this to be continued along with Nitropaste 1 inch to anterior chest wall every [address] James Cortez will be consulting on this patient this morning I have ordered Lexiscan because of the atypical nature of this patient's pain Patient is tender in the left precordial overlying the pacemaker placed a little over 2 months ago Patient kept n.p.o. in case cardiology wants to do a different plan suggest cardiac catheterization versus stress test (2) Acute on chronic systolic congestive heart failure: - Patient with ejection fraction of 15% post myocardial infarction - Now has pacemaker placed for care and management - Patient is not in any overt heart failure at this time must continue to treat and optimize. - Home medication had not been updated yet and was updated kindly reconcile. (3) Coronary artery disease: Revealed cardiac heart disease significant for CAD post an [place] last year patient's status post 2 stent placement (4) Recent non-ST elevation myocardial infarction: - This was resent as a history continue antiplatelets statins and beta-alli (5) Ischemic cardiomyopathy: Continue home medication continue antiplatelets statins and nitrates (6) Gout attack: Continue gouty medication at home Plan 09/11/2024 continue mgmt as per Hnp stress test in AM npo at midnight may eat today check echo urine drug screen 09/12/2024 Will await results of stress test and further management will be decided upon after that. Restart home medications Restart diet Echo pending Urine drug screen positive for opioids and benzodiazepines Restart Entresto PDMP PDMP Reviewed: Not Reviewed Attestations 2 Medical Necessity Statement*: stress test today Diagnoses Precordial pain R07.2 Chest pain type: precordial pain Acute on chronic systolic congestive heart failure I50.23 Coronary artery disease involving [place] coronary artery of [place] heart with unstable angina pectoris I25.110 Coronary Disease-Associated Artery/Lesion type: [place] artery [place] vs. transplanted heart: [place] heart Associated angina: with unstable angina Recent non-ST elevation myocardial infarction Ischemic cardiomyopathy I25.5 Gout attack M10.9
[2024-09-12 06:49] LABS: Amphetamines Screen Urine Negative (Negative); Barbiturates Screen Urine Negative (Negative); Benzodiazepines Screen Urine Positive (Negative); Cocaine Screen Urine Negative (Negative); Opiate Screen Urine Positive (Negative); PCP Screen Urine Negative (Negative); THC Screen Urine Negative (Negative)
[2024-09-12] MEDS: regadenoson 0.4 Mg/5 ml Syringe IVP (07:11)
[2024-09-12] MEDS: docusate sodium 100 mg Capsule PO (08:18)
[2024-09-12] MEDS: aspirin 325 mg EC Tablet PO (08:18)
[2024-09-12] MEDS: clopidogrel 75 mg Tablet PO (08:18)
[2024-09-12] MEDS: pantoprazole DR 40 mg Tablet PO (08:18)
[2024-09-12 09:21] LABS: Basophils % 0.1 %; Eosinophils # 0.1 10^3/uL (0.0-0.8); Eosinophils % 1.4 %; Hematocrit 37.6 % (37-53); Lymphocytes # 2.4 10^3/uL (0.8-4.8); Lymphocytes % 29.3 %; Mean Corpuscular HGB Conc 32.4 g/dL (30-55); Mean Corpuscular Hemoglobin 29.1 pg (27-33); Mean Corpuscular Volume 89.7 fl (82-101); Mean Platelet Volume 9.9 fL (7.4-10.4); Monocytes # 0.6 10^3/uL (0.2-0.9); Monocytes % 7.1 %; Neutrophils # 4.97 10^3/uL (1.8-7.7); Neutrophils % 61.9 %; Nucleated Red Blood Cells % 0 %; Platelet Count 196 10^3/cmm (157-399); Red Blood Count 4.19 10^6/uL (3.85-5.65); Red Cell Distribution Width 17.3 % (12.1-15.1); White Blood Count 8.03 10^3/uL (3.29-11.43)
[2024-09-12 09:40] LABS: Alanine Aminotransferase 15 U/L (0-41); Alkaline Phosphatase 135 U/L (40-130); Anion Gap 12.6 (5-19); Aspartate Amino Transferase 16 U/L (0-40); Blood Urea Nitrogen 18 mg/dL (6-20); Calcium 9.7 mg/dL (8.5-10.5); Carbon Dioxide 27 mmol/L (22-29); Chloride 96 mmol/L (98-107); Creatinine Clr Calc Pharmacy 76.0101; Globulin 2.6 g/dL (1.3-4.6); Glomerular Filtration Rate 63.1 mL/min (90-130); Glucose 125 mg/dL (65-115); Magnesium 1.9 mg/dL (1.7-2.3); Osmolality Calculated 277 mOsm/kg (285-295); Potassium 3.6 mmol/L (3.5-5.1); Sodium 132 mmol/L (136-145); Total Bilirubin 0.7 mg/dL (0.15-1.2); Total Protein 6.6 g/dL (6.6-8.7)
--- NOTE | 2024-09-12 10:51 | NMCV_ITS ---
NM geronimo perf SPECT r/s* [id number] Vivek Corral Age: 53 Gender: M : 1970 Exam Date: 09/12/2024 06:41 Ordering Phys: Jena Fenton NP Technologist: DANELLE Chin Exam Location: [facility] Indications: cp STRESS TEST [facility] for [facility] IMAGE PROTOCOL Rest/Stress 1 Lexiscan Day Radiopharmaceutical Dose (mCi) Administration Site Administered by Rest: Tc-99m 10.9 IV Hallie Comer, SECURITIES CLERK Sestamibi Stress:Tc-99m 32.6 IV Hallie Comer, SECURITIES CLERK Sestamibi Rest: 12-Sep-2024 60 Discovery 630 Stress: 12-Sep-2024 30 Discovery 630 0.4mg Lexiscan. Images obtained in supine and prone position. SPECT RESULTS Technical Quality: Good Raw Data Analysis: Normal Image Corrections: No attenuation or motion correction applied Summed Stress Score: 16 Summed Rest Score: 18 Summed Difference Score: 1 PERFUSION FINDINGS Large area of fixed perfusion defect noted in mid to distal anterior and mid to distal inferior and mid inferolateral wall on both stress and rest images suggestive of old myocardial infarction in the region of the LAD/RCA or circumflex dominant territory. No significant ischemia noted. FUNCTIONAL RESULTS (calculated via Gated SPECT) Stress Image LV EF (%): 28 Stress EDV (mL):199 TID: 1.02 Stress ESV (mL):144 FUNCTIONAL FINDINGS: Global hypokinesis IMPRESSIONS Large area of fixed perfusion defect noted in mid to distal anterior and mid to distal inferior and mid inferolateral wall on both stress and rest images suggestive of old myocardial infarction in the region of the LAD/RCA or circumflex dominant territory. No significant ischemia noted. Lisa Ramirez MD (Electronically Signed) Final Date: 12 September 2024 09:53 S
--- NOTE | 2024-09-12 11:48 | CT_ITS ---
WS: [id number] CTA HEAD AND NECK TECHNIQUE: Contrast enhanced CTA of the head and neck with coronal and sagittal reformatted images and maximum intensity projection (MIP) images. NASCET criteria utilized. CLINICAL INFORMATION: left arm numbness COMPARISON: None. DLP: 575.[address] scans at [facility] use at least one of these dose optimization techniques: automated exposure control; mA and/or kV adjustment per patient size (includes targeted exams where dose is matched to clinical indication); or iterative reconstruction. FINDINGS: RIGHT: No significant RIGHT ICA stenosis. LEFT: No significant LEFT ICA stenosis. INTRACRANIAL CTA: Codominant and patent vertebral arteries bilaterally. Proximal basilar artery is patent. Normal vascularity to the [employer] territory bilaterally. Both ICAs are patent at the skull base. Normal vascularity to the TOMASZ territory. Small LEFT A1 segment. Normal vascularity to the MCA territory bilaterally. No evidence of proximal flow-limiting stenosis. Subpleural nodule RIGHT upper lobe along the fissure measuring 1.[address] follow-up. Normal aortic arch. Proximal main pulmonary arteries appear normal. Retropharyngeal course of the cervical ICAs. Subclavian arteries appear patent. Postoperative changes cervical spine fusion. CT/CT angio headneck* [id number] IMPRESSION: 1. No significant cervical ICA stenosis. 2. No flow-limiting intracranial stenosis. 3. Codominant and patent vertebral arteries bilaterally. 4. Subpleural nodule RIGHT upper lobe along the fissure measuring 1.[address] Der[address] chest [address] follow-up.
--- NOTE | 2024-09-12 11:48 | CT_ITS ---
WS: [id number] CT HEAD TECHNIQUE: Noncontrast CT of the head obtained from the skullbase to the vertex. CLINICAL INFORMATION: left arm numbness COMPARISON: CT 06/09/2024 DLP: 1154.[address] scans at [facility] use at least one of these dose optimization techniques: automated exposure control; mA and/or kV adjustment per patient size (includes targeted exams where dose is matched to clinical indication); or iterative reconstruction. FINDINGS: No evidence of intracranial hemorrhage or mass effect. Ventricular system and basal cisterns are patent. No extra-axial fluid collections. No evidence of mass or mass effect. Normal whatley-white differentiation. Paranasal sinuses and mastoid air cells are well aerated. .Normal visualized soft tissues. CT/CT head wo con* [id number] IMPRESSION: 1. No evidence of intracranial hemorrhage or mass effect. 2. No acute intracranial findings.
--- NOTE | 2024-09-12 11:48 | ECG_ITS ---
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1970 Requested By: Aide Bowers Order Number: [id number] Reading MD: HAYDEE ROGEL Measurements Intervals [place] Rate: 71 P: 48 [place]: 196 QRS: -20 QRSD: 105 T: 174 QT: 435 QTc: 474 Interpretive Statements SINUS RHYTHM LOW QRS VOLTAGE IN PRECORDIAL LEADS [QRS DEFLECTION < 1.0 mV IN CHEST LEADS] SEPTAL MYOCARDIAL INFARCTION , OF INDETERMINATE AGE [40+ ms Q WAVE IN V1/V2] MODERATE T-WAVE ABNORMALITY, CONSIDER LATERAL ISCHEMIA [-0.1+ mV T-WAVE IN I/aVL/V5/V6] Compared to ECG 09/12/2024 13:16:43 No significant changes Electronically Signed On 09-13-2024 23:47:07 CDT by HAYDEE ROGEL [email or web address] [id number]
[2024-09-12] MEDS: iohexol 350 mg/mL 500 mL Btl (per mL) IV (12:12)
--- NOTE | 2024-09-12 13:07 | CT_ITS ---
WS: [id number] CT CHEST TECHNIQUE: Noncontrast CT of the chest with coronal and sagittal reformatted images. CLINICAL INFORMATION: nodule 1.2 cm COMPARISON: CTA head neck from earlier today DLP: 679.[address] scans at [facility] use at least one of these dose optimization techniques: automated exposure control; mA and/or kV adjustment per patient size (includes targeted exams where dose is matched to clinical indication); or iterative reconstruction. FINDINGS: Again seen is the RIGHT pleural-based nodule RIGHT upper lobe along the fissure measuring 8-9 mm. This is increased in size since the earliest study 2019 where it measured approximately 5 mm. This appears unchanged since the CTA chest 03/17/2024. Recommend 6-month follow-up chest CT. Both lungs are otherwise well aerated. No other suspicious pulmonary parenchymal abnormalities. Aortic calcification. Normal caliber thoracic aorta. Coronary calcification. Dense coronary calcification involving the LAD. Follow-up cardiology evaluation. Cardiac pacer. No mediastinal or hilar lymphadenopathy. No axillary lymphadenopathy. Adrenal glands are normal. Multiple cysts partially visualized in the liver similar to the prior studies. Cholecystectomy clips. Partially visualized bilateral renal cysts. Fatty atrophy of the pancreas. Small esophageal hiatal hernia. Hypertrophic changes thoracic spine. CT/CT chest wo con [id number] IMPRESSION: 1. 8-9 mm pleural-based nodule RIGHT upper lobe along the fissure slowly incre ased in size since 2019 but stable since 2023. Recommend 6-month follow-up ches t CT. 2. Lungs are otherwise well aerated with no other suspicious pulmonary parench ymal abnormalities. 3. Dense coronary calcification involving the LAD. Recommend follow-up cardiol ogy consultation. 4. No other acute findings.
--- NOTE | 2024-09-12 13:16 | ECG_ITS ---
[facility] Test Date: 2024-09-12 Pat Name: Vivek Corral Department: Room: 253 Gender: Male [employer] Technology: : 1970 Requested By: Aide Bowers Order Number: [id number] Reading MD: HAYDEE ROGEL Measurements Intervals [place] Rate: 72 P: 44 [place]: 194 QRS: -15 QRSD: 105 T: 184 QT: 441 QTc: 485 Interpretive Statements SINUS RHYTHM LOW QRS VOLTAGE IN PRECORDIAL LEADS [QRS DEFLECTION < 1.0 mV IN CHEST LEADS] SEPTAL MYOCARDIAL INFARCTION , OF INDETERMINATE AGE [40+ ms Q WAVE IN V1/V2] MODERATE T-WAVE ABNORMALITY, CONSIDER ANTEROLATERAL ISCHEMIA [-0.1+ mV T-WAVE IN V3-V6] Compared to ECG 09/10/2024 23:44:59 T-wave abnormality now present Possible ischemia now present Sinus tachycardia no longer present Myocardial infarct finding still present Electronically Signed On 09-13-2024 23:52:58 CDT by HAYDEE ROGEL [email or web address]
--- NOTE | 2024-09-12 13:49 | P.PN_ITS ---
<Statement entered by Lisa Ramirez MD - 09/12/24 22:28> Patient was evaluated and cared for in conjunction with an advanced practice practitioner. I personally examined the patient and reviewed the chart and all pertinent data including imaging, telemetry, and laboratory results. I discussed the patient in detail with the advanced practice practitioner. Please see their note for complete H&P testing result and agreed upon plan of care for the patient. Subjective 2 Subjective: Patient stress test was negative for ischemia. On my assessment he stated he had developed left arm numbness. He states it also hurt. He states this is new for him. Neuroexam normal other than patient has somewhat difficulty raising that arm. I am unsure if this is from pain or numbness. Code stroke was called CT was negative. He denies any chest pressure. He has tenderness on the left side where his defibrillator was placed but otherwise no unstable angina. Vitals/I&O/Wt Last Vital Signs Temp 97.4 F L 09/12/24 13:00 Pulse 74 09/12/24 13:00 Resp 18 09/12/24 13:00 BP 136/93 09/12/24 13:00 Pulse Ox 98 09/12/24 13:00 O2 Del Method Room Air 09/12/24 10:08 09/11/24 09/12/24 09/12/24 22:59 06:59 14:59 Intake Total 460 / 578 0 / 578 360 / 360 Balance 460 / 578 0 / 578 360 / 360 Weight last 48 hrs Weight 209 lb 14.4 oz Weight 210 lb 8 oz Weight 200 lb Physical Exam 2 Narrative: General: No apparent distress, healthy appearing, well nourished HENMT: normoceophalic Muskuloskeletal: Full ROM Respiratory: Normal respiratory effort, clear to auscultation bilaterally throughout all lung wolf, no use of accessory muscles Cardio: No JVD, regular rate, regular rhythm, S1 S2 normal, no murmurs, peripheral pulses 2+ radial palpated bilaterally GI: Normal to inspection, nondistended Extremities: Full ROM, normal, normal capillary refill, no cyanosis or edema Neuro: Alert and oriented x4, no focal motor deficits Psych: Affect normal, denies suicidal ideation, mental status grossly normal Skin: Incision site to defibrillator clean dry intact well-approximated no redness or signs of infection present Data 09/12/24 09:13 09/12/24 09:13 A&P Assessment and plan (1) Cardiomyopathy: (2) Ischemic cardiomyopathy: (3) CAD (coronary artery disease): (4) Chest pain: Plan Patient's pain is most consistent with musculoskeletal pain and soreness over defibrillator site. Overall he appears euvolemic. Creatinine is back to baseline. Ef still at 35%. He has defibrillator. No s/s of infection present. From cardiology perspective, can be discharged home. Would recommend continuing current home medication regimen. PDMP PDMP Reviewed: Not Reviewed Attestations 2 Medical Necessity Statement*: Deferred to primary. Coding Level of Care Code Acute Code for [facility] Fwd Diagnoses Other cardiomyopathy I42.8 Cardiomyopathy type: other Ischemic cardiomyopathy I25.5 Coronary artery disease of [place] artery of [place] heart with stable angina pectoris I25.118 Coronary Disease-Associated Artery/Lesion type: [place] artery [place] vs. transplanted heart: [place] heart Associated angina: with stable angina Precordial pain R07.2 Chest pain type: precordial pain
[2024-09-12 13:54] LABS: Troponin(5th) Baseline 11 ng/L (0-15)
--- NOTE | 2024-09-12 14:01 | PM.DCS ---
Discharge Providers Date of Admission: 09/11/24 03:23 Date of Discharge: September 12, 2024 Attending Provider at Admission: Yun Lozano MD Attending Provider at Discharge: Aide Bowers MD Primary Care Provider: Soto Escamilla MD Diagnoses at Discharge Discharge Diagnosis (1) Cardiomyopathy: Status: Acute Qualifiers: Cardiomyopathy type: other Qualified Code(s): I42.8 - Other cardiomyopathies (2) Ischemic cardiomyopathy: Status: Acute (3) CAD (coronary artery disease): Status: Acute Qualifiers: Associated angina: with stable angina Coronary Disease-Associated Artery/Lesion type: [place] artery [place] vs. transplanted heart: [place] heart Qualified Code(s): I25.118 - Atherosclerotic heart disease of [place] coronary artery with other forms of angina pectoris (4) Chest pain: Status: Resolved Qualifiers: Chest pain type: precordial pain Qualified Code(s): R07.2 - Precordial pain Reason for Visit Reason for Visit: CHEST PAIN Hospital Course Hospital Course Patient was admitted to the hospital for chest pain. Has a strong cardiac history. Also had a pacemaker placed 2 months ago. Chest pain was thought to be reproducible with palpation. It was thought to be musculoskeletal in origin. Cardiology was consulted. Patient underwent stress test which showed large area of fixed perfusion defect. No significant ischemia noted. Patient did complain of slight numbness in left arm into the cardiology team afterward CT head and CTA head and neck were obtained. No evidence of ischemia or stroke. Symptoms spontaneously resolved. There was a 1.2 cm right lung nodule noted for which CT chest was pursued. Patient referred to pulmonology. Physical Exam Narrative: General AOx3 HEENT normocephalic/atraumatic neck neck is supple cardiovascular heart rate is regular lungs: Clear to auscultation bilaterally abdomen is soft nontender nondistended unremarkable Neurology nonfocal extremities: no edema bl LE Discharge Data Studies Completed and Pending Completed Studies During Hospitalization Category Date Time Status CT head wo con* [id number] Stat Cat Scan 09/12/24 11:48 Completed CTA head neck [CT angio headneck* [id number]] Stat Cat Scan 09/12/24 11:48 Completed XR chest 1V portable [id number] Stat Exams 09/10/24 23:59 Completed NM geronimo perf SPECT r/s* [id number] Routine Nuc Med 09/12/24 10:51 Completed CV. echo complete* [id number] Routine Ultrasound 09/11/24 07:58 Completed Pending at discharge Category Date Time Status CT chest wo/w con [id number] Urgent Cat Scan 09/12/24 13:07 Ordered Cardiac Stress Test MIBI [Sestamibi Stress Test Request Exams 09/11/24 10:51 Ordered ] Routine Complete Blood Count w/Auto AM LABS Lab 09/13/24 04:00 Ordered Comprehensive Metabolic Panel AM LABS Lab 09/13/24 04:00 Ordered Magnesium AM LABS Lab 09/13/24 04:00 Ordered Troponin(5th) 2 Hour. Timed Lab 09/12/24 15:20 Ordered Troponin(5th) 6 hour. Timed Lab 09/12/24 19:20 Ordered Radiology Impressions Chest X-Ray 09/10/24 23:59 IMPRESSION: No acute cardiopulmonary process. Head CT 09/12/24 11:48 IMPRESSION: 1. No evidence of intracranial hemorrhage or mass effect. 2. No acute intracranial findings. Head/Neck CTA 09/12/24 11:48 IMPRESSION: 1. No significant cervical ICA stenosis. 2. No flow-limiting intracranial stenosis. 3. Codominant and patent vertebral arteries bilaterally. 4. Subpleural nodule RIGHT upper lobe along the fissure measuring 1.[address] follow-up. Laboratory Results WBC 8.03 10^3/uL (3.29-11.43) 09/12/24 09:13 RBC 4.19 10^6/uL (3.85-5.65) 09/12/24 09:13 Hgb 12.20 g/dL (11.27-16.99) 09/12/24 09:13 Hct 37.6 % (37-53) 09/12/24 09:13 MCV 89.7 fl (82-101) 09/12/24 09:13 MCH 29.1 pg (27-33) 09/12/24 09:13 MCHC 32.4 g/dL (30-55) 09/12/24 09:13 RDW 17.3 % (12.1-15.1) H 09/12/24 09:13 Plt Count 196 10^3/cmm (157-399) 09/12/24 09:13 MPV 9.9 fL (7.4-10.4) 09/12/24 09:13 Neut % (Auto) 61.9 % 09/12/24 09:13 Lymph % (Auto) 29.3 % 09/12/24 09:13 [place] % (Auto) 7.1 % 09/12/24 09:13 Eos % (Auto) 1.4 % 09/12/24 09:13 Baso % (Auto) 0.1 % 09/12/24 09:13 Neut # (Auto) 4.97 10^3/uL (1.8-7.7) 09/12/24 09:13 Lymph # (Auto) 2.4 10^3/uL (0.8-4.8) 09/12/24 09:13 [place] # (Auto) 0.6 10^3/uL (0.2-0.9) 09/12/24 09:13 Eos # (Auto) 0.1 10^3/uL (0.0-0.8) 09/12/24 09:13 Baso # (Auto) 0.0 10^3/uL (0.0-0.1) 09/12/24 09:13 Nucleated RBC % (auto) 0 % 09/12/24 09:13 Nucleated RBCs # 0.0 /100WBC 09/12/24 09:13 PT 14.10 SECONDS (12.1-14.9) 09/11/24 06:20 INR 1.01 (0.8-1.2) 09/11/24 06:20 Sodium 132 mmol/L (136-145) L 09/12/24 09:13 Potassium 3.6 mmol/L (3.5-5.1) 09/12/24 09:13 Chloride 96 mmol/L (98-107) L 09/12/24 09:13 Carbon Dioxide 27 mmol/L (22-29) 09/12/24 09:13 Anion Gap 12.6 (5-19) 09/12/24 09:13 BUN 18 mg/dL (6-20) 09/12/24 09:13 Creatinine 1.2 mg/dL (0.7-1.2) 09/12/24 09:13 GFR Calculation 63.1 mL/min (90-130) L 09/12/24 09:13 Glucose 125 mg/dL (65-115) H 09/12/24 09:13 Estimat Average Glucose 151 09/11/24 06:20 Hemoglobin A1c 6.9 % (4.0-6.0) H 09/11/24 06:20 Calculated Osmolality 277 mOsm/kg (285-295) L 09/12/24 09:13 Lactic Acid 0.9 mmol/L (0.5-2.2) 09/11/24 06:20 Calcium 9.7 mg/dL (8.5-10.5) 09/12/24 09:13 Phosphorus 3.0 mg/dL (2.5-4.5) 09/12/24 09:13 Magnesium 1.9 mg/dL (1.7-2.3) 09/12/24 09:13 Total Bilirubin 0.7 mg/dL (0.15-1.2) 09/12/24 09:13 AST 16 U/L (0-40) 09/12/24 09:13 ALT 15 U/L (0-41) 09/12/24 09:13 Alkaline Phosphatase 135 U/L (40-130) H 09/12/24 09:13 Troponin T Baseline 11 ng/L (0-15) 09/12/24 13:20 Troponin T 120 Minute 12.10 ng/L (0-15) 09/11/24 02:19 Delta Troponin T 1.10 ABS# (0-10) 09/11/24 02:19 Troponin T Hi Sens 6Hr 14.20 ng/L (0-15) 09/11/24 06:20 Troponin T Hi Sens 6Hr Delta 3.20 ng/L (0-12) 09/11/24 06:20 NT-Pro-B Natriuret Pep 3817 pg/mL (0-125) H 09/11/24 06:20 Total Protein 6.6 g/dL (6.6-8.7) 09/12/24 09:13 Albumin 4.0 g/dL (3.5-5.2) 09/12/24 09:13 Globulin 2.6 g/dL (1.3-4.6) 09/12/24 09:13 Triglycerides 150 mg/dL (0-150) 09/11/24 06:20 Cholesterol 169 mg/dL (0-200) 09/11/24 06:20 LDL Cholesterol, Calc 91 mg/dL (50-129) 09/11/24 06:20 HDL Cholesterol 48 mg/dL (60-100) L 09/11/24 06:20 LDL/HDL Ratio 1.90 RATIO (0.00-3.22) 09/11/24 06:20 Cholesterol/HDL Ratio 3.52 mg/dL (1.0-5.00) 09/11/24 06:20 TSH 1.85 uIU/mL (0.27-4.20) 09/11/24 06:20 Urine Color Yellow (Yellow) 09/11/24 05:55 Urine Appearance Clear (CLEAR) 09/11/24 05:55 Urine pH 5.5 (5-7) 09/11/24 05:55 Ur Specific [place] 1.020 (1.005-1.030) 09/11/24 05:55 Urine Protein Negative (Negative) 09/11/24 05:55 Urine Glucose (UA) 3+ (Normal) H 09/11/24 05:55 Urine Ketones Negative (Negative) 09/11/24 05:55 Urine Blood Negative (Negative) 09/11/24 05:55 Urine Nitrate Negative (Negative) 09/11/24 05:55 Urine Bilirubin Negative (Negative) 09/11/24 05:55 Urine Urobilinogen 0.2 mg/dL (Negative) 09/11/24 05:55 Ur Leukocyte Esterase Negative (Negative) 09/11/24 05:55 Urine RBC 0-2 /hpf (0-2) 09/11/24 05:55 Urine WBC 6-10 /hpf (0-5) 09/11/24 05:55 Ur Squamous Epith Cells 0-5 /hpf (0-5) 09/11/24 05:55 Amorphous Sediment Not Reportable 09/11/24 05:55 Urine Bacteria None seen /hpf (NONE) 09/11/24 05:55 Hyaline Casts 0.40 /lpf 09/11/24 05:55 Urine Opiates Screen Positive ng/mL (Negative) H 09/12/24 06:35 Ur Barbiturates Screen Negative ng/mL (Negative) 09/12/24 06:35 Ur Phencyclidine Scrn Negative ng/mL (Negative) 09/12/24 06:35 Ur Amphetamines Screen Negative ng/mL (Negative) 09/12/24 06:35 U Benzodiazepines Scrn Positive ng/mL (Negative) H 09/12/24 06:35 Urine Cocaine Screen Negative ng/mL (Negative) 09/12/24 06:35 U Marijuana (THC) Screen Negative ng/mL (Negative) 09/12/24 06:35 Adenovirus (PCR) Not detected (NOT DETECT) 09/11/24 00:20 C. pneumoniae DNA (PCR) Not detected (NOT DETECT) 09/11/24 00:20 Coronavirus 229E (PCR) Not detected (NOT DETECT) 09/11/24 00:20 Human Metapneumovir PCR Not detected (NOT DETECT) 09/11/24 00:20 Influenza A (H1) PCR Not detected (NOT DETECT) 09/11/24 00:20 Influ A (H1/09) PCR Not detected (NOT DETECT) 09/11/24 00:20 Influenza A (H3) PCR Not detected (NOT DETECT) 09/11/24 00:20 Influenza Type A (PCR) Not detected (NOT DETECT) 09/11/24 00:20 Influenza Type B (PCR) Not detected (NOT DETECT) 09/11/24 00:20 M. pneumoniae (PCR) Not detected (NOT DETECT) 09/11/24 00:20 Parainfluenza 1 (PCR) Not detected (NOT DETECT) 09/11/24 00:20 Parainfluenza 2 (PCR) Not detected (NOT DETECT) 09/11/24 00:20 Parainfluenza 3 (PCR) Not detected (NOT DETECT) 09/11/24 00:20 Parainfluenza 4 (PCR) Not detected (NOT DETECT) 09/11/24 00:20 RSV Type A (PCR) Not detected (NOT DETECT) 09/11/24 00:20 RSV Type B (PCR) Not detected (NOT DETECT) 09/11/24 00:20 Entero/Rhino (PCR) Not detected (NOT DETECT) 09/11/24 00:20 SARS-CoV-2 (PCR) Not detected (NOT DETECT) 09/11/24 00:20 Vitals Last Vital Signs Temp 97.4 F L 09/12/24 13:00 Pulse 74 09/12/24 13:00 Resp 18 09/12/24 13:00 BP 136/93 09/12/24 13:00 Pulse Ox 98 09/12/24 13:00 O2 Del Method Room Air 09/12/24 10:08 Discharge Plan Discharge Patient Disposition: Home Condition: Stable Prescriptions: Continued Jardiance 10 mg tablet 10 mg PO DAILY Qty: 30 2RF clopidogrel 75 mg tablet 75 mg PO DAILY Qty: 90 3RF Entresto 24-26 mg tablet 1 tab PO BID hydrocodone-acetaminophen 5-325 mg tablet 1 tab PO Q8H PRN (Reason: pain) 7 Days Qty: 21 0RF magnesium oxide 400 mg (241.3 mg magnesium) tablet 400 mg PO DAILY Qty: 90 0RF atorvastatin 40 mg tablet 40 mg PO QPM aspirin 81 mg tablet,delayed release (DR/EC) 81 mg PO DAILY pantoprazole 40 mg tablet,delayed release (DR/EC) 40 mg PO DAILY nitroglycerin 0.4 mg tablet, sublingual 0.4 mg sublingual PRN PRN (Reason: Pain) allopurinol 300 mg tablet 300 mg PO DAILY acetaminophen 325 mg Tablet 650 mg PO Q6H PRN (Reason: Mild Pain) Qty: 100 0RF colchicine 0.6 mg tablet 0.6 mg PO DAILY Qty: 30 0RF omega 6-qfs-hof-fish oil 35-25-5-113.5 mg Tablet,Chewable 1 tab PO DAILY bumetanide 1 mg Tablet 1 mg PO DAILY Qty: 60 0RF furosemide 40 mg tablet 40 mg PO DAILY PRN (Reason: Weight Gain) oxycodone-acetaminophen 10-325 mg tablet 1 tab PO Q4H PRN (Reason: Severe Pain (Scale Score 7-10)) diazepam 2 mg tablet 2 mg PO BEDTIME metoprolol succinate 25 mg tablet extended release 24 hr 25 mg PO DAILY Changed potassium chloride [Klor-Con 10] 10 mEq tablet extended release 10 meq PO BID PRN (Reason: take day you take lasix) Qty: 1 0RF Held diazepam 5 mg tablet 5 mg PO DAILY PRN (Reason: Anxiety) Hold Instructions: see pcp Discharge Orders: Discharge Order (Routine); Ordered 09/12/24 Ordered By: Aide Bowers Referrals: Jena Fenton NP [Nurse Practitioner, Cardiology] - 7-10 days Referral Note: We have notified your physician's clinic of the need for a follow-up appointment to be scheduled. If you have not heard from them within the next 2 business days, please call them directly. Soto Escamilla MD [Primary Care Provider, Family Practice] - 09/22/24 1:45 pm Lisa Ramirez MD [Physician, Cardiology] - 1 month Referral Note: We have notified your physician's clinic of the need for a follow-up appointment to be scheduled. If you have not heard from them within the next 2 business days, please call them directly. Jabier Lockwood MD, MBBS, MPH [Referring, Pulmonology] - 2 weeks Referral Note: We have notified your physician's clinic of the need for a follow-up appointment to be scheduled. If you have not heard from them within the next 2 business days, please call them directly. Discharge Diet: Cardiac Discharge Activity: Resume usual activity Patient Instructions: Coronary Artery Disease (GEN), Chest Pain (GEN), Opioid Safety Activity Restrictions/Additional Instructions: On your CT scan chest you were diagnosed with a 1.2 cm lung nodule which is larger than 2020 however same size as 2023 scans. He will need 6-month follow-up to keep an eye on that. I have referred you to pulmonology in [place]. Please follow-up with the doctor there in regards to this 1.2 cm lung nodule. Discharge Attestations Time Spent in Discharge Care*: less than 30 min Status at Discharge: Cognitive status at discharge: cognitively intact, Behavioral status at discharge: cooperative, Quality Metrics Clinical Quality Measures [ No reported AMI, CVA or VTE this stay] Coding Level of Care Code Acute Code for [facility] Fwd Diagnoses Other cardiomyopathy I42.8 Cardiomyopathy type: other Ischemic cardiomyopathy I25.5 Coronary artery disease of [place] artery of [place] heart with stable angina pectoris I25.118 Associated angina: with stable angina Coronary Disease-Associated Artery/Lesion type: [place] artery [place] vs. transplanted heart: [place] heart Precordial pain R07.2 Chest pain type: precordial pain
--- NOTE | 2024-09-12 16:03 | ECG_ITS ---
[facility] Date: 2024-09-12 Pat Name: Vivek Corral Department: Room: 253 Gender: Male [employer]: : 1970 Requested By: Aide Bowers Order Number: [id number] Reading MD: HAYDEE ROGEL Measurements Intervals [place] Rate: 60 P: 22 [place]: 191 QRS: -15 QRSD: 112 T: 153 QT: 444 QTc: 446 Interpretive Statements SINUS RHYTHM LOW QRS VOLTAGE IN PRECORDIAL LEADS [QRS DEFLECTION < 1.0 mV IN CHEST LEADS] SEPTAL MYOCARDIAL INFARCTION , OF INDETERMINATE AGE [40+ ms Q WAVE IN V1/V2] MODERATE T-WAVE ABNORMALITY, CONSIDER ANTEROLATERAL ISCHEMIA [-0.1+ mV T-WAVE IN V3-V6] Compared to ECG 09/12/2024 13:27:09 No significant changes Electronically Signed On 09-13-2024 23:53:01 CDT by HAYDEE ROGEL [email or web address] [id number]
== END 2024-09-12 16:34 | disposition home or self-care (01) ==
LOC: ER 09-11 03:22 → MEDSURG 09-11 06:23
PROVIDERS: Admitting Provider Internal Medicine; Emergency Provider Student in an Organized Health Care Education/Training Program; PCP Family Medicine; Visit Provider Internal Medicine
DX: I25.5 Ischemic cardiomyopathy (principal); I25.2 Old myocardial infarction; Z95.5 Presence of coronary angioplasty implant and graft; R55 Syncope and collapse; I11.0 Hypertensive heart disease with heart failure; I50.23 Acute on chronic systolic (congestive) heart failure; I25.118 Atherosclerotic heart disease of native coronary artery with other forms of angina pectoris; E78.5 Hyperlipidemia, unspecified; K21.9 Gastro-esophageal reflux disease without esophagitis; N18.9 Chronic kidney disease, unspecified; G43.909 Migraine, unspecified, not intractable, without status migrainosus; M10.9 Gout, unspecified; Z98.1 Arthrodesis status; R73.03 Prediabetes; Z87.891 Personal history of nicotine dependence; Z95.810 Presence of automatic (implantable) cardiac defibrillator; Z88.2 Allergy status to sulfonamides; Z88.8 Allergy status to other drugs, medicaments and biological substances; Z91.09 Other allergy status, other than to drugs and biological substances; Z79.02 Long term (current) use of antithrombotics/antiplatelets; Z79.82 Long term (current) use of aspirin; Z79.899 Other long term (current) drug therapy; Z79.84 Long term (current) use of oral hypoglycemic drugs; Z11.52 Encounter for screening for COVID-19
CPT/HCPCS: 36415; 70450; 70496; 70498; 71045; 71250; 78452; 80053; 80061; 80306; 81001; 83036; 83605; 83735; 83880; 84100; 84443; 84484; 85025; 85610; 87486; 87581; 87633; 93005; 93017; 93306; 96372; 96374; 96375; 96376; 99285; A9500; G0378; J1650; J2060; J2270; J2785; J9999

== ENCOUNTER → 2024-09-24 09:12 | Outpatient (BNVA) | payer MEDICAID, SELFPAY ==
[2024-05-15 13:16] VITALS: BP 106/69; BMI 29.4
== END ==
PROVIDERS: PCP Family Medicine; Visit Provider Nurse Practitioner Family
DX: I25.118 Atherosclerotic heart disease of native coronary artery with other forms of angina pectoris (principal); I11.0 Hypertensive heart disease with heart failure; I50.23 Acute on chronic systolic (congestive) heart failure; Z79.02 Long term (current) use of antithrombotics/antiplatelets; Z79.82 Long term (current) use of aspirin; Z95.810 Presence of automatic (implantable) cardiac defibrillator; F17.290 Nicotine dependence, other tobacco product, uncomplicated; I25.2 Old myocardial infarction
CPT/HCPCS: 99214

== ENCOUNTER 2024-10-06 09:55 | Emergency (ER) | payer MEDICAID, SELFPAY ==
[2024-05-15 13:16] VITALS: BP 106/69; BMI 29.4
--- OUTSIDE RECORDS SUMMARY | 2024-10-01 10:30 | XMS_ITS | Encounter Summary ---
Author Organization [facility] Address [address] [place] [address] Care Team Providers Care Pharmacy General Manager Name Role Phone Unavailable Primary Care Provider Unavailabl e Encounter Details Date Type Department Care Team (Late st Contact Info) Description 10/01/2024 10:[address] [facility] Neuro[facility] [address] [place] [address] Richmond Sanchez MD [address] [place] [phone] S/P spinal surgery (Primary Dx) Social History Tobacco Use Types Packs/Day Years Used Date Smoking Tobacco: Former Cigarettes 1 05/24/2023 - 1984 Smokeless Tobacco: Former Alcohol Use Standard Drinks/Week Comments Not Currently 0 (1 standard drink = 0.6 oz pur e alcohol) Feeling Safe Answer Date Recorded Are you in a relationship wi th someone who hurts you emotionally and/or physically? No 07/25/2024 Food Insecurity Answer Date Recorded Patient needs follow up regardin 07/30/2024 Transportation Needs Answer Date Record ed Patient needs follow up regardin 07/30/2024 Housing Stability Answer Date Recorded Social/Environmental Concerns No concerns Utility Needs Answer Date Recorded Patient needs follow up regardin 07/30/2024 Sex and Gender Information Value Date Recorded Sex Assigned at Not on file Legal Sex Male 4:55 PM CDT Gender Identity Not on file Sexual Orientation Not on file documented as of this encounter Progress Notes * Richmond Sanchez MD - 10/01/2024 11:12 AM CDT Patient's identity confirmed yes Patient gave verbal consent to have these services billed to their insurance and expressed understanding that co-insurance and deductible may apply: yes This encounter was completed via two-way synchronous audio only communication. Video technology available to provider, but patient not capable of, or doesn't consent to, use of video. Time spent in discussion with patient: 5 minutes. I previously discussed a revision anterior cervical C3-4 procedure. Patient unfortunately has stents in place. He tells me Replace the stents would not give clearance until March to stop the aspirin for surgery. At this point I cannot offer him surgery until Plavix can safely come off. I told her very directly we will have to wait until we get clearance. Patient said he will let us know when he gets clearance and is ready for surgery. We spoke on the telephone for 5 minutes documented in this encounter Plan of Treatment Upcoming Encounters Date Type Department Care Team (Late st Contact Info) Description 12/23/2024 2:30 PM CDT Office Visit [facility] [address] [place] [phone] Nani Aguirre MD [address] [place] [phone] Julius Wadsworth CRNP [address], [address] [place] [phone] 01/02/2025 1:00 PM CDT Office Visit [facility] [address] [place] [phone] Bakari Shipley MD [address] [place] [phone] 03/10/2025 1:40 PM DENTAL OFFICE RECEPTIONIST Office Visit [facility] [address] [facility] [address] [place] [address] Wilber Cooley, [facility] [address] [place] [address] documented as of this encounter Visit Diagnoses Diagnosis S/P spinal surgery- Primary Other postprocedural status documented in this encounter
[2024-10-06] VITALS (7 sets, daily range): BP systolic 107–136; BP diastolic 55–92; PULSE 63–98; TEMP 36.4; O2SAT 94–99; BMI 32.3
--- NOTE | 2024-10-06 10:04 | ECG_ITS ---
[facility] Test Date: 2024-10-06 Pat Name: Vivek Corral Department: Room: Gender: Male Rn Postpartum: : 1970 Requested By: Nathaniel Covington Order Number: [id number] Clemencia MD: Pranay Alcocer M.D. Measurements Intervals [place] Rate: 87 P: 29 MD: 182 QRS: -14 QRSD: 102 T: 137 QT: 385 QTc: 463 Interpretive Statements SINUS RHYTHM LOW QRS VOLTAGE IN PRECORDIAL LEADS [QRS DEFLECTION < 1.0 mV IN CHEST LEADS] ANTEROSEPTAL MYOCARDIAL INFARCTION , OF INDETERMINATE AGE [40+ ms Q WAVE IN V1-V4] Compared to ECG 09/12/2024 16:03:57 T-wave abnormality no longer present Possible ischemia no longer present Myocardial infarct finding still present Electronically Signed On 10-09-2024 09:09:16 CDT by Pranay Alcocer M.D. [id number]
--- OUTSIDE RECORDS SUMMARY | 2024-10-06 10:05 | XMS_ITS | Patient Health Record ---
Author Organization [facility] Address [address] [place], [place] [id number] Care Team Providers Care Brand Mgr Name Role Phone Francine ROBBINS, Soto Primary Care Provider Josh ROBBINS, Travis Unavailable [phone] Liz Oro Unavailable [phone] Allergies Allergen (clinical drug ingredient) Drug/Non Drug Allergy documented on EMR Reaction Allergy Type Onset Date Status septra (uncoded) swelling Allergy Act melody tape (uncoded) Unknown Allergy Activ e Results Component Value Reference Range Notes Urine tox screen / MS if ind icated Reviewed date:06/30/2024 02:48:11 PM Interpretation:Consistent Performing Lab: Notes/Report: Consistent Reason For Referral Reason Chronic neck pain fo r greater than 3 months Diagnosis 1 Cervicalgia (M54.2) Referring Provider First Name Soto Referring Provider Last Name Francine Referring Provider Speciality Family Med icine Referred Organization [facility] Referred Provider Travis Moreno Referred Address [address] [place], [id number], Referred Provider Specialty Pain Managem ent General Notes Yudith Ortiz 04:02:59 PM >Sent for insurance verification., Sharon Holman 06/05/2024 04:33:50 PM >Active. NO copay., Yudith Ortiz 06/09/2024 08:44:15 AM > Mailbox is full on cell. Referral Priority Routine Reason Sleep Study (19606)/ CPAP Titration Study (02880) as appropriate Diagnosis 1 Hypersomnia, unspeci fied (G47.10) Referral Organization [facility] Referring Provider First Name Travis Referring Provider Last Name Josh Referring Provider Speciality Pain Manag ement Referred Provider Lab, Sleep General Notes Michelle Littlejohn 07/14 09:06:57 AM > referral faxed, Michelle Littlejohn 08/07/2024 11:49:09 AM > Spoke with Sujey at [facility] Sleep Lab - patient is scheduled as above. Referral Priority Routine Referral Appointment Date 10/01/2024 Medications Medication SIG (Take, Route, Frequency, Duration) Notes Start Date End Date Status acetaminophen-hydrocodo ne 325 mg-5 mg 1 tab orally Q4-6H prn pain (max 2/day; hold within 4H of planned sleep) for 28 days ICD-10: G89.29 08/12/2024 Active diazePAM 2 mg 1 tab(s) orally at bedtime Active diazePAM 10 mg 1 tab(s) orally prio r to procedure, for anxiety Active atorvastatin 40 mg 1 tab(s) orally once a day Active pantoprazole 40 mg 1 tab(s) orally once a day Active bumetanide 1 mg 1 tab(s) orally 2 times a day Active potassium chloride 20 mEq 1 tab(s) orally 2 times a day Active clopidogrel 75 mg 1 tab(s) orally once a day Active colchicine 0.6 mg 2 tab(s) orally as directed Active acetaminophen 325 mg 2 tab(s) orally ashley ry 6 hours, as needed for mild pain Active Jardiance 10 mg 1 tab(s) orally once a day (in the morning) Active magnesium oxide 400 mg 1 tab(s) orally o nce a day Active allopurinol 300 mg 1 tab(s) orally once a day Active Metoprolol Succinate ER 25 mg 1 tab(s) orally once a day Active Aspirin EC 81 mg 1 tab(s) orally once a day Active nitroglycerin 0.4 mg 1 tab(s) sublingual ly as needed / directed Active furosemide 40 mg 1 tab(s) orally once a day Active acetaminophen-hydrocodo ne 325 mg-5 mg 1 tab orally Q4-6H prn pain (max 2/day; hold within 4H of planned sleep) for 28 days Do not fill prior to 10/03/24. ICD-10: G89.29 07/24/2024 Active acetaminophen-hydrocodo ne 325 mg-5 mg 1 tab orally Q4-6H prn pain (max 2/day; hold within 4H of planned sleep) for 28 days Do not fill prior to 09/05/24. ICD-10: G89.29 07/24/2024 Active Social History Tobacco use: Question Answer Notes Additional Findings: Tobacco Non-User Vape (contains nicotine) AUDIT-C (Standard) Question Answer Notes Did you have a drink contain ing alcohol in the past year? Yes How often did you have a dri nk containing alcohol in the past year? 2 to 3 times a week (3 points) How many drinks did you have on a typical day when you were drinking in the past year? 1 or 2 drinks (0 point) How often did you have six o r more drinks on one occasion in the past year? Never (0 point) Points 3 Interpretation Negative Problems Problem Type SNOMED Code ICD Code Onset Dates Problem Status W/U Status Risk Notes Problem High risk drug monitoring status (168981508) technician terminal and repeater (current) use of opiate analgesic (Z79.891) Active confirmed Problem Hypersomnia (55857426) Hypersomnia, unspecified (G47.10) Active confirmed Problem Chronic pain (11542416) Other chronic pain (G89.29) Active confirmed Problem Cervicalgia (39684829) Cervicalgia (M54.2) Active confirmed Problem Post-laminectom y syndrome (29931154) Postlaminectomy syndrome, not elsewhere classified (M96.1) Active confirmed Problem Long-term current use of drug therapy (440820433) Other terminal operations manager (current) drug therapy (Z79.899) Active confirmed Vital Signs Temperature 97.4 degrees Fahrenheit 07/24/2024 Oximetry 98 % 07/24/2024 Blood pressure diastolic 87 mm Hg 07/24/2024 Height 66 in 07/24/2024 Blood pressure systolic 122 mm Hg 07/24/2024 Weight 199.4 lbs 07/24/2024 BMI 32.18 kg/m2 07/24/2024 Encounters Encounter Location Date Provider Diagnosis [facility] [place] [address] [place], [place] [id number] 06/30/2024 Liz Kowalski Cervicalgia M54.2 ; Postlaminectomy syndrome, not elsewhere classified M96.1 ; Hypersomnia, unspecified G47.10 and Other skilled nursing (current) drug therapy Z79.899 [facility], [facility] [address] [place], [place] [phone] 07/08/2024 Travis Moreno Cervicalgia M54.2 ; Other chronic pain G89.29 ; Postlaminectomy syndrome, not elsewhere classified M96.1 ; Hypersomnia, unspecified G47.10 and Other skilled nursing (current) drug therapy Z79.899 [facility] Treatment [facility] [address] [place], [place] [phone] 07/24/2024 Travis Josh Cervicalgia M54.2 ; Other chronic pain G89.29 ; Hypersomnia, unspecified G47.10 and halfway (current) use of opiate analgesic Z79.891 [facility] [address] [place] [phone] 08/12/2024 Travis Moreno Assessments Encounter Date Diagnosis (ICD Code) Assessment Notes Treatment Notes Treatment Clinical Notes Section Notes 06/30/2024 Cervicalgia (ICD-10 - M54.2) Disc bulging and facet arthropathy at the C3-4 level causing central canal and foraminal stenosis. This is just adjacent to the 3 level anterior and posterior fusion / fixation as noted on patient's 06/24/24 [facility] MRI report. Consider treatment options pending evaluation by Dr. Moreno. 06/30/2024 Postlaminectomy syndrome, not elsewhere classified (ICD-10 - M96.1) Post C4-C7 laminectomy as noted on patient's 10/24/[address] report. 07/08/2024 Other chronic pain (ICD-10 - G89.29) Patient reports prior prescription from Dr. Escamilla for his hydrocodone. Next prescription was by Dr. Mcghee to get me though until this visit . Patient desires a reliable source for his opioid prescriptions. He said he does not use the medication a lot, taking up to two tablets per day. Patient desires this facility to take care of his hydrocodone prescriptions. Risks, potential benefits, and alternatives discussed with patient. Plan to initiate opioid medication management via this facility. 07/08/2024 Cervicalgia (ICD-10 - M54.2) Chronic axial cervical spine pain. Cervical spondylosis and disc disease at the C3-4 level causes central canal stenosis (with indentation of the cervical spinal cord) and foraminal stenosis as noted upon review of prior imaging study report. This is just adjacent to the 3 level anterior and posterior fusion / fixation as noted on that 06/24/24 cervical spine MRI report. Patient states that he has received a referral from his PCP to [facility]. 07/24/2024 Other chronic pain (ICD-10 - G89.29) Patient reports that taking his pain medication allows him to be more active every day. Plan to continue oral opioid medication. 07/24/2024 Cervicalgia (ICD-10 - M54.2) Chronic axial cervical spine pain. 06/30/2024 Hypersomnia, unspecified (ICD-10 - G47.10) Consider completion of a sleep study. 07/24/2024 Hypersomnia, unspecified (ICD-10 - G47.10) Plan to restrict opioid usage in relation to sleep for safety concerns. 07/08/2024 Postlaminectomy syndrome, not elsewhere classified (ICD-10 - M96.1) Patient is status post C4-C7 laminectomy. Adjacent level disease suspected. 06/30/2024 Other terminal operations manager (current) drug therapy (ICD-10 - Z79.899) Patient was given a copy of the Treatment Agreement; signed on 06/17/24. 2022 opioid (OUD) risk tool score = 3. This places the patient in the high risk category. Plan urine toxicology screen today in anticipation of possibly starting opioid therapy at future visit as well as to assess for any prescribed, unprescribed, and / or illicit controlled substance(s). 07/08/2024 Hypersomnia, unspecified (ICD-10 - G47.10) Sleep disorder - patient has described sleep as poor with complaints of frequent awakenings, non-refreshing sleep, excessive daytime sleepiness, snoring, confusion, restlessness during sleep, morning headaches, difficulty in sleeping, thrashing about, and impaired memory / intellectual function. Patient's Medical History includes obesity, anxiety, depression, hypertension, coronary artery disease, myocardial infarction, and congestive heart failure. Plan a sleep study: patient's history and condition warrants an in-lab study. Strongly recommend an in-lab study and not a home sleep study (for insurer's information). Plan to restrict opioid usage in relation to sleep for safety concerns: patient has verbalized understanding to hold short-acting opioids within four hours of planned sleep. Patient has been counseled on the risks of sleep apnea (if present), with or without opioid and / or other sedative usage, and the patient verbalized understanding and acceptance of the increased risk (sleep apnea, respiratory depression, ) with opioid and / or sedative substance usage. Patient has been counseled that synergistic risk occurs with concomitant opioid (such as hydrocodone) and sedative (such as diazepam) usage. Patient has been counseled to hold opioid and / or sedative substances prior to planned sleep or dangerous activities and patient verbalized understanding that noncompliance would be at patient's increased risk. 07/24/2024 technician terminal and repeater (current) use of opiate analgesic (ICD-10 - Z79.891) 07/08/2024 Other skilled nursing (current) drug therapy (ICD-10 - Z79.899) Patient has received the Opioid Analgesic [facility] Patient Counseling Guide. Patient has had opportunity to read the Guide and ask questions pertaining to the Guide. Patient has been advised on 07/08/24 that any suspected patient misuse, abuse, or diversion of controlled substances will result in dissolution of treatment from this clinic. Patients adhering to the concepts contained within patient's Treatment Agreement will be protected from such termination of care. Patient signed an opioid consent form on 07/08/24. Patient has been given a copy of the Treatment Agreement; signed on 06/17/24. 2022 opioid (OUD) risk tool score = 3. This places the patient in the high risk category. 06/30/2024 Other Patient states he is slowly moving his health care to [facility] in [place]. If anything additional is needed for his spine, he would like to be referred there. Case reviewed and treatment plan approved by Dr. Moreno. 07/08/2024 Other Patient has stated he is slowly moving his health care to [facility] in [place], [place]. If anything additional is needed for his spine, he would like to be referred there. Patient reports upcoming doctor visit to discuss defibrillator implant surgery. 07/24/2024 Other The service was provided by ALEXANDRE Cruz, as part of the ongoing care plan established by Travis Moreno MD, who was present in the office for direct supervision during the encounter. Patient was provided with a letter at today's visit informing patient that this clinic is closing due to Dr. Moreno's chcf; see scanned document. Terminal prescriptions were given to the patient along with tapering instructions. Plan Of Treatment No Information Insurance Providers Payer Name Payer Address Payer Phone Subscriber Number Group Number Insured Name Patient Relationship to Insured Coverage Start Date Coverage End Date [place] [employer] [address] [place] [address] [phone] [id number] Vivek Corral Self - patient is the insured Medical (General) History Medical History History ICD Code Chronic pain Neck pain / cervicalgia Cervical spondylosis, disc d isease, and moderate C3-4 spinal stenosis and severe foraminal stenosis with indentation of cervical spinal cord post C4-7 ACDF surgeries as noted upon review of 06/24/24 cervical MRI report Cervical disc disorder with myelopathy o f mid-cervical region Rib pain Fracture of scaphoid bone of wrist (2011 ) Arthritis of right wrist Anxiety and depression Gout Claustrophobia Hyperkalemia Hypertension Hypercholesterolemia Angina pectoris CAD, history of myocardial infarction Congestive heart failure Acute on chronic systolic heart failure Multiple renal cysts [place] Spotted fever (2020) Chronic insomnia Sleep disorder - patient has described sleep as poor with complaints of frequent awakenings, non-refreshing sleep, excessive daytime sleepiness, snoring, confusion, restlessness during sleep, morning headaches, difficulty in sleeping, thrashing about, and impaired memory / intellectual function Obesity, mild Surgical History Surgery Date(Month/Year) Cholecystectomy, performed at [facility] Knee surgery (MRSA removed f rom left leg and foot), performed at [facility], 2012 Parathyroidectomy, performed at [facility], 202 0 Colonoscopy Lithotripsy, performed [place], C4-5, C5-6, C6-7 ACDFF, performed at [facility] by Dr. Mcghee, 2019 Low back surgery, performed at [facility] by Dr Tracey Mcghee, 2019 C4-C7 laminectomy with fixation, perform ed at [facility] by Dr. Mcghee, 2022 Placement of stents, cardiac, performed at [facility] by Dr. Gee, 03/2024 Angiography, performed at [facility] by Dr. Marvin fontana, 04/2024 Hospitalization History Reason Date(Month/Year) High potassium, treated at [facility], 2024 Flu, treated at [facility], 04/2024 Heart attack, treated at [facility], 03/2024
--- OUTSIDE RECORDS SUMMARY | 2024-10-06 10:06 | XMS_ITS | Clinical Summary ---
Author Organization [facility] Address [address] [place] [address] Phone Care Team Providers Care Manager Route Name Role Phone Unavailable Primary Care Provider Unavailabl e Allergies Active Allergy Reactions Criticality Noted Date Comments Septra I.V. Swelling Low 07/01/2024 Sulfamethoxazole-Trimethoprim Swelling Low 2024 Medications acetaminophen (TYLENOL) 325 mg tablet TAKE 2 TABLETS BY MOUTH ONCE EVERY 6 HOURS NEEDED FOR MILD PAIN Active allopurinoL (ZYLOPRIM) 300 mg tablet Take 1 Tablet by mouth daily. Active aspirin (ECOTRIN EC) 81 mg Tablet, Delayed Release (E.C.) TAKE 1 TABLET BY MOUTH EVERY DAY FOR 30 DAYS Active bumetanide (BUMEX) 1 mg tablet Take 1 Tablet by mouth daily. Active clopidogreL (PLAVIX) 75 mg Tablet TAKE 1 TABLET BY MOUTH EVERY DAY FOR 30 DAYS Active colchicine (COLCRYS) 0.6 mg tablet TAKE 1 TABLE BY MOUTH ONCE DAILY Active Jardiance 10 mg tablet Take 1 Tablet by mouth daily. Active magnesium OXIDE (MAG-OX) 400 mg (241.3 mg magnesium) tablet Take by mouth daily. Active metoprolol succinate (TOPROL XL) 25 mg Extended Release 24 hour tablet TAKE 1/2 TABLET BY MOUTH DAILY Active nitroglycerin (NITROSTAT) 0.4 mg Tablet, Sublingual Place 1 tablet every day by sublingual route as needed. 03/21/20 24 Active pantoprazole (PROTONIX) 40 mg Tablet, Delayed Release (E.C.) Take 1 Tablet by mouth daily. Active atorvastatin (LIPITOR) 40 mg tablet Take 1 Tablet (40 mg) by mouth daily. 30 Tablet 11 07/24/19 25 Active OMEGA-3 FATTY ACIDS-FISH OIL ORAL Take by mouth daily. Active oxyCODONE-acet aminophen (PERCOCET) 10-325 mg TabletIndicati ons:ICD (implantable cardioverter-d efibrillator) in place Take 1 Tablet by mouth every 4 hours as needed for Pain, Severe. Max Daily Amount: 6 Tablets 15 Tablet 07/30/19 25 Active HYDROcodone-ac etaminophen (NORCO) 5-325 mg tablet PLEASE SEE ATTACHED FOR DETAILED DIRECTIONS Active furosemide (LASIX) 40 mg tablet Take 1 Tablet (40 mg) by mouth 1 time daily as needed for Other (See Comment) (Weight gain). PRN 30 Tablet 3 08/07/19 25 Active triamcinolone acetonide (Kenalog) 40 mg/mL Suspension Take 40 mg by injection route. 08/13/19 25 Active diazePAM (VALIUM) 5 mg tablet TAKE 1 TABLET EVERY DAY BY ORAL ROUTE NEEDED. Active potassium CHLORIDE (KLOR-CON) 10 mEq Extended Release tablet Take 2 Tablets by mouth 2 times daily. 08/12/19 25 Active diazePAM (VALIUM) 2 mg tablet Take 1 Tablet by mouth daily at bedtime. 025 Discontinued(Do se/form adjustment) potassium CHLORIDE (K-DUR,KLOR-CO N M20) 20 mEq Extended Release tablet Take 1 Tablet (20 mEq) by mouth daily. TAKES ONCE DAILY 30 Tablet 3 08/07/19 025 Discontinued(Do se/form adjustment) sacubitriL-jasen sartan (ENTRESTO) 24-26 mg Tablet Take 1 Tablet by mouth 2 times daily. 60 Tablet 3 08/07/19 025 Discontinued Active Problems Problem Noted Date Diagnosed Date Ischemic dilated cardiomyopathy 07/23/2024 Class 1 obesity due to exces s calories with serious comorbidity and body mass index (BMI) of 31.0 to 31.9 in adult 07/23/2024 On statin therapy 07/23/2024 Primary idiopathic dilated cardiomyopathy 2024 Coronary artery disease 07/23/2024 NYHA class 3 acute on chronic systolic heart rosario lure 07/23/2024 Chronic combined systolic and diastolic CHF, [facility] A class 3 07/01/2024 Hypertension, essential 07/01/2024 Mixed hyperlipidemia 07/01/2024 ASHD (arteriosclerotic heart disease) 07/01/2024 Anxiety 07/01/2024 Noncompliance 07/01/2024 Encounters Date Type Department Care Team Description 10/01/2024 10:30 AM CDT Telemed [facility] [address] [place] [phone] Richmond Sanchez MD S/P spinal surgery (Primary Dx) 09/24/2024 10:44 AM CDT - 09/24/2024 11:59 PM CDT Hospital Encounter [facility] [place] [address] [facility] [address] [place] [phone] Rachael Vazquez MD Discharge Disposition: Home or Self Care 09/24/2024 External Device Data STL ABSTRACTION Provider, Abstract 09/23/2024 External Device Data STL ABSTRACTION Provider, Abstract 09/19/2024 11:45 AM CDT - 09/19/2024 11:59 PM CDT Hospital Encounter [facility] [place] [address] [facility] [address] [place] [phone] Rachael Vazquez MD Discharge Disposition: Home or Self Care 09/18/2024 Orders Only [facility] [address] [place] [phone] Rachael Vazquez MD Right wrist pain (Primary Dx); Vitamin D deficiency; Gout of wrist, unspecified cause, unspecified chronicity, unspecified laterality 09/17/2024 2:15 PM CDT - 09/17/2024 11:59 PM CDT Hospital Encounter [facility] MRI [address] [facility] [place] [phone] Rachael Vazquez MD Discharge Disposition: Home or Self Care 09/08/2024 1:30 PM CDT Office Visit [facility] [address] [place] [phone] Wilber Cooley, DONNY HFrEF (heart failure with reduced ejection fraction) (CMS/HCC) (Primary Dx) 09/04/2024 Refill [facility] [address] [place] [phone] Wilber Cooley ARNP 08/28/2024 External Device Data STL ABSTRACTION Provider, Abstract 08/28/2024 External Device Data STL ABSTRACTION Provider, Abstract 08/27/2024 2:30 PM CDT Nurse Only [facility] [address] [place] [phone] Nani Aguirre MD Ischemic dilated cardiomyopathy (CMS/HCC) (Primary Dx); Congestive heart failure, unspecified HF chronicity, unspecified heart failure type (CMS/HCC); Automatic implantable cardioverter-defibril lator in situ 08/27/2024 External Device Data STL ABSTRACTION Provider, Abstract 08/26/2024 9:00 AM CDT Office Visit [facility] [address] [place] [phone] Rachael Vazquez MD Right wrist pain (Primary Dx) 08/26/2024 8:10 AM CDT Ancillary Procedure [facility] [address] [place] [phone] Rachael Vazquez MD Right wrist pain 08/26/2024 External Device Data STL ABSTRACTION Provider, Abstract 08/18/2024 Orders Only [facility] [address] [place] [phone] Rachael Vazquez MD Right wrist pain (Primary Dx) 08/14/2024 Results Follow-Up [facility] [address] [place] [phone] Wilber Cooley ARNP COMPREHENSIVE METABOLIC PANEL 08/13/2024 1:18 PM CDT - 08/13/2024 11:59 PM CDT Hospital Encounter [facility] [place] [address] [place] [phone] Wilber Cooley ARNP Unspecified systolic (congestive) heart failure (CMS/HCC) Discharge Disposition: Home or Self Care 08/08/2024 1:52 PM CDT - 08/08/2024 11:59 PM CDT Hospital En[facility] [place] [address] [place] [phone] Richmond Sanchez MD Discharge Disposition: Home or Self Care 08/06/2024 12:00 PM CDT Office Visit [facility] [address] [place] [phone] Cliff Grider MD Failed neck syndrome (Primary Dx); Cervical spondylosis; DDD (degenerative disc disease), cervical; Cervical radiculitis 08/06/2024 9:40 AM CDT Office Visit [facility] [address] [place] [address] Wilber Cooley ARNP HFrEF (heart failure with reduced ejection fraction) (CMS/HCC) (Primary Dx); ASHD (arteriosclerotic heart disease); Mixed hyperlipidemia; Elevated serum creatinine; Neck pain 07/31/2024 4:15 PM CDT Ancillary Procedure [facility] [address] [place] [address] Richmond Sanchez MD S/P spinal surgery 07/31/2024 3:30 PM CDT Office Visit [facility] [address] [place] [address] Richmond Sanchez MD Cervical radiculopathy (Primary Dx) 07/31/2024 Orders Only [facility] [address] [place] [address] Richmond Sanchez MD S/P spinal surgery (Primary Dx) 07/30/2024 Abstract [facility] [address] [place] [address] Scanning, Provider 07/29/2024 External Device Data STL ABSTRACTION Provider, Abstract 07/29/2024 Orders Only [facility] [address] [place] [phone] Nani Aguirre MD ICD (implantable cardioverter-defibril lator) in place (Primary Dx) 07/29/2024 External Device Data STL ABSTRACTION Provider, Abstract 07/29/2024 External Device Data STL ABSTRACTION Provider, Abstract 07/29/2024 Telephone [facility] [address] [place] [phone] Nani Aguirre MD Medication Problem; Eckerman; Follow Up 07/28/2024 3:16 PM CDT Anesthesia Event [facility] [place] [address] [place] [phone] Jordan Abebe MD 07/28/2024 2:04 PM CDT - 07/28/2024 3:13 PM CDT Surgery [facility] [place] [address] [place] [phone] Nani Aguirre MD ICD Insertion 07/28/2024 11:30 AM CDT - 07/28/2024 6:30 PM CDT Hospital Encounter [facility] [address] [place] [phone] Nani gAuirre MD Primary idiopathic dilated cardiomyopathy (CMS/HCC) Discharge Disposition: Home or Self Care 07/23/2024 11:00 AM CDT Office Visit [facility] [address] [place] [phone] Bakari Shipley MD Parvathaneni, Sunthosh, MD Ischemic dilated cardiomyopathy (CMS/HCC) (Primary Dx); ASHD (arteriosclerotic heart disease); Chronic combined systolic and diastolic CHF, NYHA class 3 (CMS/HCC); Mixed hyperlipidemia; Hypertension, essential; Class 1 obesity due to excess calories with serious comorbidity and body mass index (BMI) of 31.0 to 31.9 in adult; On statin therapy 07/23/2024 Prep for Surgery [facility] [address] [place] [phone] Nani Aguirre MD Ischemic dilated cardiomyopathy (CMS/HCC) (Primary Dx); NYHA class 3 acute on chronic systolic heart failure (CMS/HCC); Coronary artery disease involving la posta coronary artery of la posta heart without angina pectoris 07/23/2024 Orders Only [facility] [address] [place] [phone] Provider, Abstract 07/22/2024 External Device Data STL ABSTRACTION Provider, Abstract 07/21/2024 Orders Only [facility] [address] [place] [phone] Nani Aguirre MD ASHD (arteriosclerotic heart disease) (Primary Dx); ACC/AHA stage C chronic systolic heart failure (CMS/HCC) 07/21/2024 Orders Only [facility] [address] [place] [phone] Bakari Shipley MD ACC/AHA stage C chronic systolic heart failure (CMS/HCC) (Primary Dx) 07/21/2024 Telephone [facility] [address] [place] [phone] Bakari Shipley MD schedule 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 07/17/2024 Telephone [facility] [address] [place] [phone] Bakari Shipley MD echo results 07/17/2024 Orders Only [facility] [address] [place] [phone] Provider, Abstract 07/14/2024 1:00 PM CDT - 07/14/2024 11:59 PM CDT Hospital Encounter [facility] [place] [address] [place] [phone] Bakari Shipley MD Discharge Disposition: Home or Self Care 07/10/2024 Telephone [facility] [address] [place] [phone] Bakari Shipley MD ekg results 07/08/2024 External Device Data STL ABSTRACTION Provider, Abstract 07/08/2024 External Device Data STL ABSTRACTION Provider, Abstract 07/08/2024 External Device Data STL ABSTRACTION Provider, Abstract from Last 3 Months Social History Tobacco Use Types Packs/Day Years Used Date Smoking Tobacco: Former Cigarettes 1 05/24/2023 - 1984 Smokeless Tobacco: Former Tobacco Cessation:Counseling Given: Not Answered Alcohol Use Standard Drinks/Week Comments Not Currently [...] on file Sexual Orientation Not on file Last Filed Vital Signs Vital Sign Reading Time Taken Comments Blood Pressure 84/60 09/08/2024 1:09 PM CDT Pulse 90 09/08/2024 1:09 PM CDT Temperature 36.4 C (97.5 F) 07/28/2024 4:11 PM CDT Respiratory Rate 19 07/28/2024 5:30 PM CDT Oxygen Saturation 98% 08/06/2024 11:57 AM CDT Inhaled Oxygen Concentration - - Weight 91.4 kg (201 lb 6.4 oz) 09/08/2024 1:09 P M CDT Height 167.6 cm (5' 6 ) 09/08/2024 1:09 PM CDT Body Mass Index 32.51 09/08/2024 1:09 PM CDT Plan of Treatment Upcoming Encounters Date Type Department Care Team (Late st Contact Info) Description 12/23/2024 2:30 PM CDT Office Visit [facility] [address] [place] [phone] Nani Aguirre MD [address] [place] [phone] Julius Wadsworth CRNP [address], [address] [place] [phone] 01/02/2025 1:00 PM CDT Office Visit [facility] [address] [place] [phone] Bakari Shipley MD [address] [place] [phone] 03/10/2025 1:40 PM ENDBAND SIZER Office Visit [facility] [address] [place] [phone] Wilber Cooley, DOOR SERVICEMAN [address] [place] [phone] Health Maintenance Due Date Last Done Comments Pre-Diabetes and Diabetes Screening 1969 DTAP/TDAP/TD VACCINES (1 - Tdap) 1988 HEPATITIS B VACCINES (1 of 3 - 19+ 3-dose series) 11/08 FIT-DNA Q 3 years 2014 FIT/FOBT Q 1 year 2014 Flex Sig/CT Colonography Q 5 years 2014 ZOSTER VACCINE (1 of 2) 12/02/2019 INFLUENZA VACCINE (#1) 2023 COLORECTAL SCREENING 01/26/2033 01/26/2023 Colorectal Cancer Screening 01/26/2033 Medical Devices Implanted Type Area Technical Architect Device Identifier Shelf Expiration Date Model / Serial / Lot Dev Icd Acticor 7 Vr-T Dx Df4 Hybrid [id number] - [id number] Implanted:Qty: 1 on 07/28/2024 by Nani Aguirre MD at [facility] Defibrillator Left: Chest Wall [employer] [id number] 07/07/2026 [id number] / [id number] / Lead Endocardial Pamira S Dx 65/15 Rv W Atr Sensing [id number] - [id number] Implanted:Qty: 1 on 07/28/2024 by Nani Aguirre MD at [facility] Lead Left: Chest Wall [employer] [id number] 07/07/2026 [id number] / [id number] / Procedures Procedure Name Priority Date/Time Associated Diagnosis Comments VITAMIN D 25 HYDROXY Routine 09/24/2024 10:56 AM CDT Right wrist pain Vitamin D deficiency Gout of wrist, unspecified cause, unspecified chronicity, unspecified laterality REFERENCE LAB PROCESSING FEE Routine 09/24/2024 10:55 AM CDT Right wrist pain URIC ACID Routine 09/19/2024 11:57 AM CDT Right wrist pain Vitamin D deficiency Gout of wrist, unspecified cause, unspecified chronicity, unspecified laterality SEDIMENTATION RATE Routine 09/19/2024 11:57 AM CDT Right wrist pain Vitamin D deficiency Gout of wrist, unspecified cause, unspecified chronicity, unspecified laterality RHEUMATOID FACTOR Routine 09/19/2024 11:57 AM CDT Right wrist pain Vitamin D deficiency Gout of wrist, unspecified cause, unspecified chronicity, unspecified laterality C-REACTIVE PROTEIN Routine 09/19/2024 11:57 AM CDT Right wrist pain Vitamin D deficiency Gout of wrist, unspecified cause, unspecified chronicity, unspecified laterality CYCLIC CITRULLINATED PEPTIDE AB IGG Routine 09/19/2024 11:57 AM CDT Right wrist pain Vitamin D deficiency Gout of wrist, unspecified cause, unspecified chronicity, unspecified laterality CEDRIC SCREEN W/REFLEX Routine 09/19/2024 11:57 AM CDT Right wrist pain Vitamin D deficiency Gout of wrist, unspecified cause, unspecified chronicity, unspecified laterality REFERENCE LAB PROCESSING FEE Routine 09/19/2024 11:56 AM CDT Right wrist pain MRI WRIST WO CONTRAST RIGHT Routine 09/17/2024 4:15 PM CDT Right wrist pain ICD PROGRAM/EVAL SINGLE LEAD Routine 08/27/2024 3:12 PM CDT Ischemic dilated cardiomyopathy (CMS/HCC) Congestive heart failure, unspecified HF chronicity, unspecified heart failure type (CMS/HCC) Automatic implantable cardioverter-defibri llator in situ XR WRIST 3+ VW RIGHT Routine 08/26/2024 8:10 AM CDT Right wrist pain COMPREHENSIVE METABOLIC PANEL Routine 08/13/2024 1:26 PM CDT HFrEF (heart failure with reduced ejection fraction) (CMS/HCC) REFERENCE LAB PROCESSING FEE Routine 08/13/2024 1:26 PM CDT (HFpEF) heart failure with preserved ejection fraction (CMS/HCC) CT CERVICAL SPINE WO CONTRAST Routine 08/08/2024 2:04 PM CDT S/P spinal surgery XR CERVICAL SPINE 2 OR 3 VIEWS Routine 07/31/2024 4:18 PM CDT S/P spinal surgery TELEMETRY REPORT 07/29/2024 10:42 AM CDT XR CHEST PA AND LATERAL 2 VW Stat 07/28/2024 5:58 PM CDT OR ANES INSERT SUPRAGLOTTIC AIRWAY Routine 07/28/2024 4:24 PM CDT ICD INSERTION W ANES Routine 07/28/2024 3:57 PM CDT Primary idiopathic dilated cardiomyopathy (CMS/HCC) Coronary artery disease NYHA class 3 acute on chronic systolic heart failure (CMS/HCC) XR CHEST PA OR AP 1 VW Pending Discharge 07/28/2024 12:19 PM CDT PROTIME-INR Routine 07/28/2024 12:15 PM CDT BASIC METABOLIC PANEL Routine 07/28/2024 12:15 PM CDT CBC WITH DIFFERENTIAL Routine 07/28/2024 12:15 PM CDT EKG 12-LEAD Pending Discharge 07/28/2024 11:46 AM CDT OR ECG ROUTINE ECG W/LEAST 12 LDS W/I&R Routine 07/23/2024 11:33 AM CDT ASHD (arteriosclerotic heart disease) ACC/AHA stage C chronic systolic heart failure (CMS/HCC) ECHO COMPLETE Routine 07/14/2024 5:07 PM CDT ACC/AHA stage C chronic systolic heart failure (CMS/HCC) Hypertension, essential Mixed hyperlipidemia ASHD (arteriosclerotic heart disease) Anxiety Noncompliance from Last 3 Months Results * VITAMIN D 25 HYDROXY (09/24/2024 10:56 AM CDT) VITAMIN D, 25 OH, TOTAL 32 30 - 100 ng/mL [facility] Comment: Vitamin D Status 25-OH Vitamin D: Deficiency: <20 ng/mL Insufficiency: 20 - 29 ng/mL Optimal: > or = 30 ng/mL For 25-OH Vitamin D testing on patients on D2-supplementation and patients for whom quantitation of D2 and D3 fractions is required, the [facility](TM) 25-OH VIT D, (D2,D3), LC/MS/MS is recommended: order code [id number] (patients >2yrs). See Note 1 Note 1 For additional information, please refer to http://education.Epoque/faq/EBQ789 (This link is being provided for informational/ educational purposes only.) Test Performed at: [facility] [address] [place] [address] Vadim Kay MD Blood 09/24/2024 10:5 6 AM CDT 09/25/2024 2:53 AM CDT Rachael Vazquez MD CHEMISTRY ORDERABLES Final R ult [facility] [phone] [facility] [place] [address] * REFERENCE LAB PROCESSING FEE (09/24/2024 10:55 AM CDT) Only the most recent of3 resultswithin the time period is included. Pathologist [facility] REFERENCE LAB SENDOUT Sent to Ref Lab 09/24/2024 12:00 PM CDT [facility] Other, specify BLOOD SPECIMEN / Unknown Collection / Unknown 09/24/2024 10:55 AM CDT 09/24/2024 10:59 AM CDT Rachael Vazquez MD CHEMISTRY ORDERABLES Final R esult [facility] CLIA # [id number] [address] [place] [address] * CYCLIC CITRULLINATED PEPTIDE AB IGG (09/19/2024 11:57 AM CDT) Pathologist [facility] CYCLIC CITRULLINATED PEPTIDE AB IGG <16 UNITS [facility] Comment: Reference Range Negative: <20 Weak Positive: 20-39 Moderate Positive: 40-59 Strong Positive: >59 Test Performed at: [facility] [address] [facility] [place] [address] Vadim Kay MD Blood 09/19/2024 11:5 7 AM CDT 09/20/2024 4:31 AM CDT Rachael Vazquez MD CHEMISTRY ORDERABLES Final R esult Performing Organization Address [facility] Co de Phone Number [facility] [phone] [facility] [address] [place] [address] * SEDIMENTATION RATE (09/19/2024 11:57 AM CDT) ESR (SEDIMENTATION RATE) 2 < OR = 20 mm/h [facility] Comment: Test Performed at: [facility] [address] [place] [address] Vadim Kay MD Blood 09/19/2024 11:5 7 AM CDT 09/20/2024 4:31 AM CDT Rachael Vazquez MD HEMATOLOGY ORDERABLES Final Result Performing Organization Address [facility] Co de Phone Number [facility] [phone] [facility] [address] [place] [phone] * RHEUMATOID FACTOR (09/19/2024 11:57 AM CDT) Pathologist [facility] RHEUMATOID FACTOR <10 <14 IU/mL [facility] Comment: Test Performed at: [facility] [address] [place] [address] Vadim Kay MD Blood 09/19/2024 11:5 7 AM CDT 09/20/2024 4:31 AM CDT Rachael Vazquez MD CHEMISTRY ORDERABLES Final R esult Performing Organization Address [facility] Co de Phone Number [facility] [phone] [facility] [address] [place] [address] * C-REACTIVE PROTEIN (09/19/2024 11:57 AM CDT) Pathologist [facility] CRP <3.0 <8.0 mg/L [facility] Comment: Test Performed at: [facility] [address] [address] Vadim Kay MD Blood 09/19/2024 11:5 7 AM CDT 09/20/2024 4:31 AM CDT Rachael Vazquez MD CHEMISTRY ORDERABLES Final R esult [facility] [phone] [facility] [address] * CEDRIC SCREEN W/REFLEX (09/19/2024 11:57 AM CDT) Pathologist [facility] CEDRIC SCREEN NEGATIVE NEGATIVE [facility] Comment: CEDRIC IFA is a first line screen for detecting the presence of up to approximately 150 autoantibodies in various autoimmune diseases. A negative CEDRIC IFA result suggests an CEDRIC-associated autoimmune disease is not present at this time, and does not reflex further. If there is high clinical suspicion for Sjogren's syndrome, testing for anti-SS-A/Ro antibody should be considered. Anti-Rachele-1 antibody should be considered for clinically suspected inflammatory myopathies. AC-0: Negative International Consensus on CEDRIC Patterns (https://doi.org/10.1515/rdjr-7194-7515) For additional information, please refer to http://education.Epoque/faq/CDM250 (This link is being provided for informational/ educational purposes only.) Test Performed at: [facility] [address] [place] [address] Vadim Kay MD Blood 09/19/2024 11:5 7 AM CDT 09/20/2024 4:31 AM CDT Rachael Vazquez MD CHEMISTRY ORDERABLES Final R esult [facility] [phone] [facility] [address] [place] [address] * (ABNORMAL) URIC ACID (09/19/2024 11:57 AM CDT) URIC ACID 3.8(L) 4.0 - 8.0 mg/dL [facility] Comment: Therapeutic target for gout patients: <6.0 mg/dL Test Performed at: [facility] [id number] [place] [address] Vadim Kay MD Blood 09/19/2024 11:5 7 AM CDT 09/20/2024 4:31 AM CDT Rachael Vazquez MD CHEMISTRY ORDERABLES Final R esult [facility] [phone] [facility] [address] [place] [address] * MRI WRIST WO CONTRAST RIGHT (09/17/2024 4:15 PM CDT) Anatomical Region Laterality Modality Wrist / Hand Magnetic Resonan ce 09/17/2024 4:15 PM CDT Impressions 09/18/2024 6:57 AM CDT IMPRESSION: Please see below. Exam: MRI WRIST WO CONTRAST RIGHT Date/Time of Exam: 09/17/2024 4:15 PM Reason For Exam: Wrist pain, persistent, neg xray. Diagnosis: Right wrist pain. Technique: MRI of the right wrist was performed without the administration of intravenous contrast. Comparison: Radiographs from 08/26/2024. Findings: There is no evidence of an acute fracture or avascular necrosis. The joints are anatomically aligned. 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 There is bony remodeling of the proximal carpal row with volume loss affecting the scaphoid and lunate. There is a small distal radioulnar joint effusion. The scapholunate and lunotriquetral ligaments appear grossly intact. There is a tear involving the central disc of the triangular fibrocartilage. There is tendon fraying involving the extensor carpi ulnaris. The remainder of the tendons appear intact. There is no significant tenosynovitis. The carpal tunnel morphology is within normal limits. There is no definitive evidence of median or ulnar neuritis. There is no significant subcutaneous soft tissue edema. There is no evidence of a discrete fluid collection. There is no evidence of a discrete soft tissue mass. The musculature is within normal limits. IMPRESSION: 1. 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 2. Tear involving the central disc of the triangular fibrocartilage. Narrative Procedure Note Wilber Hyatt, - 09/18/2024 IMPRESSION: Please see below. Exam: MRI WRIST WO CONTRAST RIGHT Date/Time of Exam: 09/17/2024 4:15 PM Reason For Exam: Wrist pain, persistent, neg xray. Diagnosis: Right wrist pain. Technique: MRI of the right wrist was performed without the administration of intravenous contrast. Comparison: Radiographs from 08/26/2024. Findings: There is no evidence of an acute fracture or avascular necrosis. The joints are anatomically aligned. 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 There is bony remodeling of the proximal carpal row with volume loss affecting the scaphoid and lunate. There is a small distal radioulnar joint effusion. The scapholunate and lunotriquetral ligaments appear grossly intact. There is a tear involving the central disc of the triangular fibrocartilage. There is tendon fraying involving the extensor carpi ulnaris. The remainder of the tendons appear intact. There is no significant tenosynovitis. The carpal tunnel morphology is within normal limits. There is no definitive evidence of median or ulnar neuritis. There is no significant subcutaneous soft tissue edema. There is no evidence of a discrete fluid collection. There is no evidence of a discrete soft tissue mass. The musculature is within normal limits. IMPRESSION: 1. 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 2. Tear involving the central disc of the triangular fibrocartilage. us Rachael Vazquez MD MR ORDERABLES Final Result * ICD PROGRAM/EVAL SINGLE LEAD (08/27/2024 3:12 PM CDT) Narrative [facility] - 08/27/2024 3:12 PM CDT Livia Swift RN 08/27/2024 3:20 PM Office Device Check Report Date of Procedure: August 27, 2024 Events: Atrial: 0 (0%) Ventricular: 1 NSVT events with short duration Other Episodes: None Changes: None Comments: Comes to Device Office for 3 week post ICD implant evaluation. L upper chest incision intact, edges well approximated, without redness or drainage, denies fever or chills. Presenting - Sinus tach 105/min. Thresholds and impedance stable. Normal single chamber ICD function. Instructed patient re: incision care, arm restrictions and recommended follow up. Biotronik remote f/u reviewed. Enrolled in [employer]. Patient verbalized understanding of all instructions. F/U with with EP office in 3 months. See attached report for details. Procedure Note Livia Swift RN - 08/27/2024 3:12 PM CDT Office Device Check Report Date of Procedure: August 27, 2024 Events: Atrial: 0 (0%) Ventricular: 1 NSVT events with short duration Other Episodes: None Changes: None Comments: Comes to Device Office for 3 week post ICD implant evaluation. L upperchest incision intact, edges well approximated, without redness ordrainage, denies fever or chills. Presenting - Sinus tach 105/min.Thresholds and impedance stable. Normal single chamber ICD function.Instructed patient re: incision care, arm restrictions and recommendedfollow up. Biotronik remote f/u reviewed. Enrolled in [employer].Patient verbalized understanding of all instructions. F/U with with EPoffice in 3 months. See attached report for details. 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 us Rachael Vazquez MD DIAGNOSTIC IMAGING ORDERABLE S Final Result * (ABNORMAL) COMPREHENSIVE METABOLIC PANEL (08/13/2024 1:26 PM CDT) GLUCOSE 144(H) 65 - 99 mg/dL [facility] Comment: Fasting reference interval For someone without known diabetes, a glucose value >125 mg/dL indicates that they may have diabetes and this should be confirmed with a follow-up test. BUN 19 7 - 25 mg/dL [facility] CREATININE 1.32(H) 0.70 - 1.30 mg/dL [facility] GFR 64 > OR = 60 mL/min/1.7 3m2 [facility] BUN/CREAT RATIO 14 6 - 22 (calc) [facility] SODIUM 139 135 - 146 mmol/L [facility] POTASSIUM 3.9 3.5 - 5.3 mmol/L [facility] CHLORIDE 102 98 - 110 mmol/L [facility] CO2 24 20 - 32 mmol/L [facility] CALCIUM 10.1 8.6 - 10.3 mg/dL [facility] TOTAL PROTEIN 7.4 6.1 - 8.1 g/dL [facility] ALBUMIN 4.5 3.6 - 5.1 g/dL [facility] GLOBULIN 2.9 1.9 - 3.7 g/dL (calc) [facility] ALBUMIN/GLOBULIN RATIO 1.6 1.0 - 2.5 (calc) [facility] BILIRUBIN TOTAL 0.9 0.2 - 1.2 mg/dL [facility] ALKALINE PHOSPHATASE 147(H) 35 - 144 U/L [facility] AST 18 10 - 35 U/L [facility] ALT 13 9 - 46 U/L [facility] Comment: Test Performed at: [facility] [address] [facility] [address] Vadim Kay MD Blood 08/13/2024 1:26 PM CDT 08/14/2024 2:47 AM CDT us Wilber HINES CHEMISTRY ORDERABLES Final Res ult [facility] [phone] [facility] [employer] [address] [place] [address] * CT CERVICAL SPINE WO CONTRAST (08/08/2024 2:04 PM CDT) Anatomical Region Laterality Modality Spine Computed Tomogra phy 08/08/2024 2:06 PM CDT Impressions 08/08/2024 2:19 PM CDT IMPRESSION: No acute cervical spine fracture. Postsurgical changes without apparent hardware complication. Narrative 08/08/2024 2:19 PM CDT EXAM: CT CERVICAL SPINE WO CONTRAST DATE/TIME OF EXAM: 08/08/2024 2:04 PM REASON FOR STUDY: Neck pain, acute, prior cervical surgery DIAGNOSIS: S/P spinal surgery COMPARISON: July 31, 2024 TECHNIQUE: CT cervical spine without intravenous contrast. Coronal and sagittal reformatted images were provided. FINDINGS: POSTSURGICAL CHANGE: C4-C7 ACDF. C4-C7 posterior cervical fusion. No apparent hardware complication identified by CT. BONES: No acute cervical spine fracture. ALIGNMENT: Straightened cervical lordosis. DEGENERATIVE CHANGE: No significant cervical canal stenosis identified by CT. Mild bilateral bony foraminal narrowing C3-C4, C4-C5. Moderate right and mild left bony foraminal narrowing C5-C6 and C6-C7. SOFT TISSUES: No prevertebral soft tissue swelling. OTHER: Visualized lung apices are clear. Procedure Note Loretta Srinivasan MD - 08/08/2024 EXAM: CT CERVICAL SPINE WO CONTRAST DATE/TIME OF EXAM: 08/08/2024 2:04 PM REASON FOR STUDY: Neck pain, acute, prior cervical surgery DIAGNOSIS: S/P spinal surgery COMPARISON: July 31, 2024 TECHNIQUE: CT cervical spine without intravenous contrast. Coronal and sagittal reformatted images were provided. FINDINGS: POSTSURGICAL CHANGE: C4-C7 ACDF. C4-C7 posterior cervical fusion. No apparent hardware complication identified by CT. BONES: No acute cervical spine fracture. ALIGNMENT: Straightened cervical lordosis. DEGENERATIVE CHANGE: No significant cervical canal stenosis identified by CT. Mild bilateral bony foraminal narrowing C3-C4, C4-C5. Moderate right and mild left bony foraminal narrowing C5-C6 and C6-C7. SOFT TISSUES: No prevertebral soft tissue swelling. OTHER: Visualized lung apices are clear. IMPRESSION: No acute cervical spine fracture. Postsurgical changes without apparent hardware complication. [facility] Gerard Sanchez MD CT ORDERABLES Final Result * XR CERVICAL SPINE 2 OR 3 VIEWS (07/31/2024 4:18 PM CDT) Anatomical Region Laterality Modality Spine Computed Radiogr aphy 07/31/2024 4:18 PM CDT Impressions 08/01/2024 5:22 PM CDT IMPRESSION: No instability with flexion or extension. Narrative 08/01/2024 5:22 PM CDT Exam: XR CERVICAL SPINE 2 OR 3 VIEWS Date/Time of Exam: 07/31/2024 4:18 PM Reason For Exam: See Diagnosis Diagnosis: S/P spinal surgery A lateral view of the cervical spine and lateral flexion and extension views are submitted. Internal fixation devices span C4-C7 both anteriorly and posteriorly. There is no evidence of any loosening or breakage of the fixation devices. Mild 3 mm anterior subluxation of C3 on C4 vertebra is noted. There is no evidence of any instability of the cervical spine with flexion or extension. Vertebral body height is well maintained. Procedure Note Travis Newton MD - 08/01/2024 Exam: XR CERVICAL SPINE 2 OR 3 VIEWS Date/Time of Exam: 07/31/2024 4:18 PM Reason For Exam: See Diagnosis Diagnosis: S/P spinal surgery A lateral view of the cervical spine and lateral flexion and extension views are submitted. Internal fixation devices span C4-C7 both anteriorly and posteriorly. There is no evidence of any loosening or breakage of the fixation devices. Mild 3 mm anterior subluxation of C3 on C4 vertebra is noted. There is no evidence of any instability of the cervical spine with flexion or extension. Vertebral body height is well maintained. IMPRESSION: No instability with flexion or extension. Richmond Sanchez MD DIAGNOSTIC IMAGING OR DERABLES Final Result * TELEMETRY REPORT (07/29/2024 10:42 AM CDT) Provider Scanning ECG ORDERABLES Final Result * XR CHEST PA AND LATERAL 2 VW (07/28/2024 5:58 PM CDT) Anatomical Region Laterality Modality Chest Computed Radiogr aphy 07/28/2024 5:58 PM CDT Impressions 07/28/2024 6:20 PM CDT IMPRESSION: No evidence of acute cardiopulmonary disease. Narrative 07/28/2024 6:20 PM CDT EXAM: XR CHEST PA AND LATERAL 2 VW DATE/TIME OF EXAM: 07/28/2024 5:58 PM REASON FOR EXAM: Post-Operative DIAGNOSIS: ICD (implantable cardioverter-defibrillator) in place; Primary idiopathic dilated cardiomyopathy (CMS/HCC); Coronary artery disease; NYHA class 3 acute on chronic systolic heart failure (CMS/HCC); Ischemic dilated cardiomyopathy (CMS/HCC); Ischemic dilated cardiomyopathy (CMS/HCC) COMPARISON: 07/28/2024 FINDINGS: - Lines/tubes: Interval placement of a left subclavian approach single lead cardiac ICD/pacer device. - Cardiomediastinal: Contours are within normal limits. - Lungs/pleura: Within the limitations of body habitus and low lung volumes, the lungs appear grossly clear. Hemidiaphragms are well visualized; no appreciable pleural effusion or pneumothorax. - Bones and soft tissues: No acute abnormalities. Partially visualized lower cervical spine fusion hardware. - Additional comments: None. Procedure Note Nehemiah Berry MD - 07/28/2024 EXAM: XR CHEST PA AND LATERAL 2 VW DATE/TIME OF EXAM: 07/28/2024 5:58 PM REASON FOR EXAM: Post-Operative DIAGNOSIS: ICD (implantable cardioverter-defibrillator) in place; Primary idiopathic dilated cardiomyopathy (CMS/HCC); Coronary artery disease; NYHA class 3 acute on chronic systolic heart failure (CMS/HCC); Ischemic dilated cardiomyopathy (CMS/HCC); Ischemic dilated cardiomyopathy (CMS/HCC) COMPARISON: 07/28/2024 FINDINGS: - Lines/tubes: Interval placement of a left subclavian approach single lead cardiac ICD/pacer device. - Cardiomediastinal: Contours are within normal limits. - Lungs/pleura: Within the limitations of body habitus and low lung volumes, the lungs appear grossly clear. Hemidiaphragms are well visualized; no appreciable pleural effusion or pneumothorax. - Bones and soft tissues: No acute abnormalities. Partially visualized lower cervical spine fusion hardware. - Additional comments: None. IMPRESSION: No evidence of acute cardiopulmonary disease. Nani Aguirre MD DIAGNOSTIC IMAGING GUILLERMO VERA Final Result * OR ANES INSERT SUPRAGLOTTIC AIRWAY (07/28/2024 4:24 PM CDT) Narrative Nadira Munoz CRNA - 07/28/2024 4:24 PM CDT Nadira Munoz CRNA 07/28/2024 3:36 PM Airway Date/Time: 07/28/2024 4:24 PM Location: OR Plan: routine intubation Patient Identity Confirmed by: Verbally with patient and armband Staffing Performed: ASSOCIATE DRAFTER/CAA Authorized by: Jordan Abebe MD Performed by: Nadira Munoz CRNA Indications and Patient Condition: Indications for Airway Management: Anesthesia Sedation Level: general anesthesia Preoxygenated: yes Mask Difficulty Assessment: 1 - vent by mask Plan to extubate at end of case: Yes Final Airway Details: Final Airway Type: Supraglottic airway Final Supraglottic Airway: LMA Lubricant used: Yes LMA size: 4 Tube secured with: Tape Placement Verified by: auscultation, end tidal CO2 and chest rise Number of Attempts at Approach: 1 Additional Procedure Information: atraumatic and dentition unchanged Jordan Abebe MD PROCEDURE/MINOR SURGICAL ORDER IRVIN Final Result * ICD INSERTION W ANES (07/28/2024 3:57 PM CDT) Narrative [facility] - 07/28/2024 4:06 PM CDT Summary: 1. Successful Single Chamber ICD Implant (MRI Compatible) Estimated Blood Loss There was minimal blood loss during procedure. Procedure Details [facility] Clinical Cardiac Electrophysiology Device Report Procedures: 1. Biotronik Single Chamber ICD Implant 2. Left Subclavian Vein Access 3. Device Interrogation 4. General Anesthesia (performed by Anesthesia) 5. Fluoroscopy with Interpretation Operators: 1. Nani Aguirre MD, [facility], [facility] - Clinical Cardiac Electrophysiology Indication: 53 y/o WM with h/o IDCM, CAD, NYHA Class III HF, and EF < 35% despite OMT > 3 months presents for single chamber ICD for primary prevention. Procedure Description: After the patient was informed and consented in regards to the risks, benefits, and alternatives to the procedure, the patient was brought to the EP lab in a fasting, non-sedated state. General anesthesia was administered by members of the Anesthesia service. After appropriate antiseptic prep and with zina-operative antibiotics infusing and using local anesthesia, cutdown to the deltopectoral fascia was performed using blunt dissection and electrocautery. Access was obtained via the left subclavian vein. A subcutaneous pocket was fashioned. Under fluoroscopic guidance, the lead was placed in a RV apical position. The lead was sutured with ethabond and the pocket was irrigated with antibiotic/saline solution. The pacing parameters were tested as described below. The generator was placed in the pocket. The pocket was closed with multiple layers of absorbable suture and steri-strips with a sterile dressing were applied. After the procedure, the patient was returned to the observation area with routine post operative antibiotics and analgesia. EBL = < 30 cc. Device Model: Biotronik Acticor 7 VR-T DX [id number] RIGHT ATRIAL Sense Pole: P wave: 13.7 mV RIGHT VENTRICULAR Lead: Biotronik [id number] Pacing Threshold: 0.4V @ 0.4ms Impedance: 617 ohms R wave: 17.6 mV Complications: None Summary: 1. Successful Single Chamber ICD Implant (MRI Compatible) Nani Aguirre MD, FAC, [facility] Clinical Cardiac Electrophysiology [employer] [facility] Procedural Indications 53 y/o WM with h/o IDCM, CAD, NYHA Class III HF, and EF < 35% despite OMT > 3 months presents for single chamber ICD for primary prevention. Nani Aguirre MD CUP EP ORDERABLES Final Result [facility] [id number] [address] [place] [address], [place] [phone] * XR CHEST PA OR AP 1 VW (07/28/2024 12:19 PM CDT) Anatomical Region Laterality Modality Chest Computed Radiogr aphy 07/28/2024 12:1 9 PM CDT Impressions 07/28/2024 1:09 PM CDT IMPRESSION: Please see below. Exam: XR CHEST PA OR AP 1 VW Date/Time of Exam: 07/28/2024 12:19 PM REASON FOR EXAM: Other - Please see comments. DIAGNOSIS: Primary idiopathic dilated cardiomyopathy (CMS/HCC); Coronary artery disease; NYHA class 3 acute on chronic systolic heart failure (CMS/HCC); Ischemic dilated cardiomyopathy (CMS/HCC); Ischemic dilated cardiomyopathy (CMS/HCC). Findings: The lungs are clear. There is trace blunting of the right costophrenic angle. Otherwise, there is no pneumothorax or pleural effusion. The cardiac mediastinal silhouette is unremarkable. Anterior and posterior cervical fusion hardware is noted. IMPRESSION: Findings suggestive of trace right pleural effusion. Narrative Procedure Note Wilber Ennis MD - 07/28/2024 IMPRESSION: Please see below. Exam: XR CHEST PA OR AP 1 VW Date/Time of Exam: 07/28/2024 12:19 PM REASON FOR EXAM: Other - Please see comments. DIAGNOSIS: Primary idiopathic dilated cardiomyopathy (CMS/HCC); Coronary artery disease; NYHA class 3 acute on chronic systolic heart failure (CMS/HCC); Ischemic dilated cardiomyopathy (CMS/HCC); Ischemic dilated cardiomyopathy (CMS/HCC). Findings: The lungs are clear. There is trace blunting of the right costophrenic angle. Otherwise, there is no pneumothorax or pleural effusion. The cardiac mediastinal silhouette is unremarkable. Anterior and posterior cervical fusion hardware is noted. IMPRESSION: Findings suggestive of trace right pleural effusion. Nani Aguirre MD DIAGNOSTIC IMAGING ORDE JODY Final Result * (ABNORMAL) CBC WITH DIFFERENTIAL (07/28/2024 12:15 PM CDT) [facility] WBC 9.9 4.8 - 10.8 K/uL 07/28/2024 12:29 PM [facility] RBC 4.90 4.60 - 6.20 M/uL 07/28/2024 12:29 PM [facility] HEMOGLOBIN 13.9(L) 14.0 - 18.0 g/dL 07/28/2024 12:29 PM [facility] HEMATOCRIT 43.2 41.0 - 53.0 % 07/28/2024 12:29 PM [facility] MCV 88.2 84.0 - 103.0 fL 07/28/2024 12:29 PM [facility] MCH 28.4 27.0 - 34.0 pg 07/28/2024 12:29 PM [facility] MCHC 32.2 30.0 - 35.0 g/dL 07/28/2024 12:29 PM [facility] PLATELETS 286 140 - 440 K/uL 07/28/2024 12:29 PM [facility] MPV 9.9 8.9 - 12.8 fL 07/28/2024 12:29 PM [facility] RDW 18.6(H) 11.0 - 14.5 % 07/28/2024 12:29 PM [facility] RDW-STDEV 59.7(H) 37.0 - 54.0 fL 07/28/2024 12:29 PM [facility] NEUTROPHILS 60 42 - 75 % 07/28/2024 12:29 PM [facility] LYMPHOCYTES 29 24 - 44 % 07/28/2024 12:29 PM CDT [facility] MONOCYTES 8 2 - 10 % 07/28/2024 12:29 PM CDT [facility] EOSINOPHILS 2 0 - 7 % 07/28/2024 12:29 PM CDT [facility] BASOPHILS 0 0 - 1 % 07/28/2024 12:29 PM CDT [facility] IMMATURE GRANULOCYTES 0 0 - 2 % 07/28/2024 12:29 PM CDT [facility] NEUTROPHIL ABSOLUTE 6.00 2.00 - 8.00 K/uL 07/28/2024 12:29 PM CDT [facility] LYMPHOCYTE ABSOLUTE 2.89 1.20 - 4.00 K/uL 07/28/2024 12:29 PM CDT [facility] MONOCYTE ABSOLUTE 0.81(H) 0.10 - 0.60 K/uL 07/28/2024 12:29 PM CDT [facility] EOSINOPHIL ABSOLUTE 0.17 0.00 - 0.70 K/uL 07/28/2024 12:29 PM CDT [facility] BASOPHILS ABSOLUTE 0.02 0.00 - 0.20 K/uL 07/28/2024 12:29 PM CDT [facility] IMMATURE GRANULOCYTES ABSOLUTE 0.04 0.00 - 0.10 K/uL 07/28/2024 12:29 PM CDT [facility] SMEAR REVIEWED: NA - Not Applicable 07/28/2024 12:29 PM CDT [facility] Blood Venipuncture / Unknown 07/28/2024 12:15 PM CDT 07/28/2024 12:20 PM CDT Nani Aguirre MD HEMATOLOGY ORDERABLES F inal Result [facility] CLIA # [id number] [address] [address] [place] [address] * PROTIME-INR (07/28/2024 12:15 PM CDT) Pathologist [facility] PROTIME 13.8 12.6 - 14.6 Seconds 07/28/2024 12:49 PM CDT [facility] INR 1.0 0.8 - 1.2 07/28/2024 12:49 PM CDT [facility] Blood Venipuncture / Unknown 07/28/2024 12:15 PM CDT 07/28/2024 12:20 PM CDT [facility] - 07/28/2024 12:49 PM CDT Expected Values for INR: DVT/PE Goal INR 2.5; range 2.0 - 3.0 Valve Replacement Tissue Goal INR 2.5; range 2.0 - 3.0 Valve Replacement Mechanical Goal INR 3.0; range 2.5 - 3.5 POST-TN Goal INR 2.5; range 2.0 - 3.0 or Goal INR 3.0; range 2.5 - 3.5 Atrial Fibrillation Goal INR 2.5; range 2.0 - 3.0 Ischemic Stroke Goal INR 2.5; range 2.0 - 3.0 Nani Aguirre MD HEMATOLOGY ORDERABLES F inal Result [facility] CLIA # [id number] [address] [place] [address] [place], [place] [address] * (ABNORMAL) BASIC METABOLIC PANEL (07/28/2024 12:15 PM CDT) [facility] SODIUM 139 136 - 145 mmol/L 07/28/2024 12:56 PM CDT [facility] POTASSIUM 3.9 3.5 - 5.1 mmol/L 07/28/2024 12:56 PM CDT [facility] CHLORIDE 101 98 - 107 mmol/L 07/28/2024 12:56 PM CDT [facility] CO2 26 22 - 29 mmol/L 07/28/2024 12:56 PM CDT [facility] CALCIUM 10.2(H) 8.6 - 10.0 mg/dL 07/28/2024 12:56 PM CDT [facility] BUN 16 6 - 20 mg/dL 07/28/2024 12:56 PM CDT [facility] CREATININE 1.17 0.67 - 1.17 mg/dL 07/28/2024 12:56 PM CDT [facility] GLUCOSE 107(H) 74 - 99 mg/dL 07/28/2024 12:56 PM CDT [facility] GFR >60 >=60 mL/min/1. 73 sq meter 07/28/2024 12:56 PM CDT [facility] Comment:eGFR calculated with 2020 CKD-EPI equation. Vegetarian diet, extremely high or low muscle mass, and may affect results. Cystatin C with Glomerular Filtration Rate is a suitable alternative for these patients. ANION GAP 12 9 - 20 mmol/L 07/28/2024 12:56 PM CDT [facility] Blood Venipuncture / Unknown 07/28/2024 12:15 PM CDT 07/28/2024 12:19 PM CDT Nani Aguirre MD CHEMISTRY ORDERABLES nal Result Performing Organization Address City/State/[facility] [facility] Co de Phone Number [facility] CLIA # [id number] [address] * EKG 12-LEAD (07/28/2024 11:46 AM CDT) Only the most recent of2 resultswithin the time period is included. 07/28/2024 11:4 6 AM CDT Narrative INTERFACE SYSTEM - 07/28/2024 7:55 PM CDT [address] [address] Test Date: 2024-07-28 Pat Name: BLAISE OCRRAL Department: 12 Room: [place] [address] Gender: Male [employer] Steamer: [id number] : 1970 Requested By: Order Number: [id number] Reading MD: Michael Dale Measurements Intervals [place] Rate: 87 P: 65 OR: 174 QRS: -4 QRSD: 90 T: 116 QT: 414 QTc: 498 Interpretive Statements Normal sinus rhythm Low voltage QRS Septal infarct, age undetermined T wave abnormality, consider lateral ischemia QTcB >= 480 msec Abnormal ECG Electronically Signed On 07-28-2024 19:55:03 CDT by Michael Dale Procedure Note Michael Dale MD - 07/28/2024 [facility] [address] [place] [address] Test Date: 2024-07-28 Pat Name: BLAISE CORRAL Department: 12 Room: [place] [address] Gender: Male [employer] Steamer: [id number] : 1970 Requested By: Order Number: [id number] Reading MD: Michael Dale Measurements Intervals [place] Rate: 87 P: 65 OR: 174 QRS: -4 QRSD: 90 T: 116 QT: 414 QTc: 498 Interpretive Statements Normal sinus rhythm Low voltage QRS Septal infarct, age undetermined T wave abnormality, consider lateral ischemia QTcB >= 480 msec Abnormal ECG Electronically Signed On 07-28-2024 19:55:03 CDT by Michael Dale Nani Aguirre MD ECG ORDERABLES Final R esult INTERFACE SYSTEM Refer to clinic/hospital department * ECHO COMPLETE - CONTRAST AND STRAIN IF INDICATED (07/14/2024 5:07 PM CDT) EJECTION FRACTION 28 INTERFACE SYSTEM 07/14/2024 1:46 PM CDT Narrative INTERFACE SYSTEM - 07/15/2024 4:30 PM CDT [facility] Radiology Services - Echocardiology [address] [address] Transthoracic Echocardiography Patient: Blaise Corral Study ID: [id number] Gender: M : 1970 Age: 53 Room: [facility] Study Date: 07/14/2024 Pt Status: Study Time: 01:46:00 PM [facility] #: [id number] Ordering:Bakari Shipley Advisory Software Engineer: Alicia Stein Indications and History: ACC/AHA stage C chronic systolic heart failure (CMS/HCC) [I50.22 (ICD-10-CM)]; Hypertension, essential [I10 (ICD-10-CM)]; Mixed hyperlipidemia [E78.2 (ICD-10-CM)]; ASHD (arteriosclerotic heart disease) [I25.10 (ICD-10-CM)]; Anxiety [F41.9 (ICD-10-CM)]; Noncompliance [Z91.199 (ICD-10-CM)] Summary and Conclusion: - Left ventricle: The cavity size is normal. Wall thickness is normal. Global systolic function is severely reduced. The estimated ejection fraction is 25-30%. For Epic reporting: the left ventricular ejection fraction is 28% by biplane method of disks. There is diffuse hypokinesis. Abnormal relaxation with normal filling pressures. - Right ventricle: The cavity size is normal. Systolic function is low normal. Systolic pressure is not obtained. Comparison: No previous study was available for comparison. Procedure information: Study status: Routine. Procedure: A transthoracic echocardiogram was performed. Image quality was suboptimal. Scanning was performed from the parasternal, apical, subcostal, and suprasternal notch acoustic windows. Study components: M-mode, 2D, complete spectral Doppler, and color Doppler. Height: 0cm. Height: 0in. Weight: 0kg. Weight: 0lb. Study date: 07/14/2024. Study time: 01:46 PM. Cardiac Anatomy: LEFT VENTRICLE: The cavity size is normal. Wall thickness is normal. Global systolic function is severely reduced. The estimated ejection fraction is 25-30%. For Epic reporting: the left ventricular ejection fraction is 28% by biplane method of disks. There is diffuse hypokinesis. Abnormal relaxation with normal filling pressures. RIGHT VENTRICLE: The cavity size is normal. Systolic function is low normal. Systolic pressure is not obtained. LEFT ATRIUM: The atrium is normal in size. RIGHT ATRIUM: The atrium is normal in size. ATRIAL SEPTUM: No obvious PFO or ASD identified by 2D imaging and color Doppler. AORTIC VALVE: Not well visualized. The valve is probably trileaflet. Mobility is not restricted. There is no stenosis. There is no significant regurgitation. MITRAL VALVE: Structurally normal valve. Mobility is not restricted. No evidence for prolapse. There is no evidence for stenosis. There is no significant regurgitation. TRICUSPID VALVE: Structurally normal valve. Mobility is unrestricted. There is no evidence for stenosis. There is no significant regurgitation. PULMONIC VALVE: Not well visualized. The valve appears to be grossly normal. There is no evidence for stenosis. There is no significant regurgitation. PERICARDIUM: There is no pericardial effusion. AORTA: Aortic root: The root is not dilated. INTRACARDIAC MASS THROMBUS: No apparent intracavitary masses or thrombi detected. Measurements Left ventricle Value LVOT Value FS, LAX 13 % SV 24 ml FS 13 % EDV 201 ml Left atrium Value ESV 144 ml Vol, S 37 ml EF 28 % EF, 1-p A2C 28 % Aortic valve Value EF, 1-p A4C 28 % Peak v, S 88 cm/sec EDV, 2-p 160 ml Mean v, S 56 cm/sec ESV, 2-p 116 ml VTI, S 12.0 cm EF, 2-p 28 % Mean grad, S 2 mm Hg EDV, MM Teich. 201 ml LVOT/AV, Vpeak ratio 0.58 EF, MM Teich. 28 % EF, MM on 2D Teich. 28 % Mitral valve Value E/e', lat celso, TDI 7 Peak E/A ratio 2.44 E/e', med celso, TDI 8 E/e', avg, TDI 8 Legend: (L) and (H) lauryn values outside specified reference range. Prepared and Electronically Authenticated Kev Ugarte Confirmed 07/15/2024 16:30 Procedure Note Kev Ugarte MD - 07/15/2024 [facility] Radiology Services - Echocardiology [address] [place] [address] Transthoracic Echocardiography Patient: Blaise Corral Study ID:[id number] Gender: M : 1970 Age: 53 Room: [facility] Study Date: 07/14/2024 Pt Status: Study Time: 01:46:00 PM [facility] #: [id number] Ordering:Bakari Shipley Advisory Software Engineer: Alicia Stein Indications and History: ACC/AHA stage C chronic systolic heart failure (CMS/HCC) [I50.22 (ICD-10-CM)]; Hypertension, essential [I10(ICD-10-CM)]; Mixed hyperlipidemia [E78.2 (ICD-10-CM)]; ASHD (arteriosclerotic heart disease) [I25.10 (ICD-10-CM)]; Anxiety [F41.9 (ICD-10-CM)];Noncompliance [Z91.199 (ICD-10-CM)] Summary and Conclusion: - Left ventricle: The cavity size is normal. Wall thickness is normal.Global systolic function is severely reduced. The estimated ejection fractionis 25-30%. For Epic reporting: the left ventricular ejection fraction is28% by biplane method of disks. There is diffuse hypokinesis. Abnormalrelaxation with normal filling pressures. - Right ventricle: The cavity size is normal. Systolic function is lownormal. Systolic pressure is not obtained. Comparison: No previous study was available for comparison. Procedure information: Study status: Routine. Procedure: Atransthoracic echocardiogram was performed. Image quality was suboptimal. Scanning was performed from the parasternal, apical, subcostal, and suprasternalnotch acoustic windows. Study components: M-mode, 2D, completespectral Doppler, and color Doppler. Height: 0cm. Height: 0in. Weight: 0kg. Weight: 0lb. Study date: 07/14/2024. Study time: 01:46 PM. Cardiac Anatomy: LEFT VENTRICLE: The cavity size is normal. Wall thickness is normal.Global systolic function is severely reduced. The estimated ejection fractionis 25-30%. For [facility] reporting: the left ventricular ejection fraction is 28%by biplane method of disks. There is diffuse hypokinesis. Abnormalrelaxation with normal filling pressures. RIGHT VENTRICLE: The cavity size is normal. Systolic function is lownormal. Systolic pressure is not obtained. LEFT ATRIUM: The atrium is normal in size. RIGHT ATRIUM: The atrium is normal in size. ATRIAL SEPTUM: No obvious PFO or ASD identified by 2D imaging and color Doppler. AORTIC VALVE: Not well visualized. The valve is probably trileaflet.Mobility is not restricted. There is no stenosis. There is no significant regurgitation. MITRAL VALVE: Structurally normal valve. Mobility is not restricted.No evidence for prolapse. There is no evidence for stenosis. There is no significant regurgitation. TRICUSPID VALVE: Structurally normal valve. Mobility isunrestricted. There is no evidence for stenosis. There is no significantregurgitation. PULMONIC VALVE: Not well visualized. The valve appears to be grosslynormal. There is no evidence for stenosis. There is no significantregurgitation. PERICARDIUM: There is no pericardial effusion. AORTA: Aortic root: The root is not dilated. INTRACARDIAC MASS THROMBUS: No apparent intracavitary masses or thrombi detected. Measurements Left ventricle Value LVOT Value FS, LAX 13 % SV 24 ml FS 13 % EDV 201 ml Left atrium Value ESV 144 ml Vol, S 37 ml EF 28 % EF, 1-p A2C 28 % Aortic valve Value EF, 1-p A4C 28 % Peak v, S 88 cm/sec EDV, 2-p 160 ml Mean v, S 56 cm/sec ESV, 2-p 116 ml VTI, S 12.0 cm EF, 2-p 28 % Mean grad, S 2 mm Hg EDV, MM Teich. 201 ml LVOT/AV, Vpeak ratio 0.58 EF, MM Teich. 28 % EF, MM on 2D Teich. 28 % Mitral valve Value E/e', lat celso, TDI 7 Peak E/A ratio 2.44 E/e', med celso, TDI 8 E/e', avg, TDI 8 Legend: (L) and (H) lauryn values outside specified reference range. Prepared and Electronically Authenticated Kev Ugarte 07/15/2024 16:30 us Bakari Shipley MD ORDERABLES Final Result INTERFACE SYSTEM Refer to clinic/hospital department from Last 3 Months Insurance MEDICAID [place] Advance Directives For more information, please contact: [phone] * Full Code (Latest Code Status on File) Date Activated Date Inactivated Comments 07/28/2024 4:29 PM 07/28/2024 9:21 PM * Full Code Date Activated Date Inactivated Comments 07/28/2024 12:34 PM 07/28/2024 4:29 PM * Full Code Date Activated Date Inactivated Comments 07/28/2024 11:35 AM 07/28/2024 12:34 PM
--- NOTE | 2024-10-06 10:11 | XR_ITS ---
WS: [id number] XR chest 1V portable [id number] REASON FOR EXAM: chest pain FINDINGS: Chest is unchanged compared to 09/11/2024. Cardiac device overlying the left chest with trans left subclavian lead to the right ventricular apex. Mild cardiomegaly. No acute pulmonary parenchymal or pleural abnormality. XR/XR chest 1V portable [id number] IMPRESSION: Stable chest without acute abnormality.
[2024-10-06] MEDS: aspirin 81 mg Chew Tablet 324 MG PO (10:22)
--- NOTE | 2024-10-06 10:31 | ED_ITS ---
HPI - Dizziness 2 General: Chief Complaint: Dizziness Stated Complaint: lightheaded, dizzy, low bp Time Seen by Provider: 10/06/24 10:09 History of Present Illness: HPI Narrative: 53-year-old male presents emergency room planing being lightheaded and dizzy this morning. Family member became ill and he has been staying at the hospital nearly full-time since then has not been eating or drinking or sleeping very much this morning got lightheaded and dizzy reported that the staff took his blood pressure on the medical floor and it was reported to him as low but not exact number ago. He is having right-sided chest pain that is worse with deep inspiration and palpation better when he holds his hand over that area of his ribs and splints his ribs he denies any shortness of breath or diaphoresis. Associated symptoms: Reports chest pain; Denies chills Related Data Home Medications ?Medication ?Instructions ?Recorded ?Confirmed allopurinol 300 mg tablet 300 mg PO QPM 05/22/2410/06 aspirin 81 mg tablet,delayed 81 mg PO DAILY 05/22/24 0 10/06/24 release atorvastatin 40 mg tablet 40 mg PO QPM 05/22/24 nitroglycerin 0.4 mg sublingual 0.4 mg sublingual PRN PRN Pain 05/22/24 10/06/24 tablet pantoprazole 40 mg tablet,delayed 40 mg PO DAILY 05/2210/06/24 release omega 3 35 mg-dha 25 mg-epa 5 1 tab PO DAILY 06/09/24 10/06/24 mg-fish oil 113.5 mg chewable tablet sacubitril 24 mg-valsartan 26 mg 1 tab PO BID 08/28/24 10/06/24 tablet (Entresto) diazepam 5 mg tablet 5 mg PO DAILY PRN Anxiety 10/06/24 Held on 09/12/24. Instructions: see pcp furosemide 40 mg tablet 40 mg PO DAILY PRN Weight Ga in 09/11/24 10/06/24 metoprolol succinate 25 mg 25 mg PO DAILY 09/11/24 tablet,extended release 24 hr diazepam 2 mg tablet 2 mg PO BEDTIME 10/06/24 Previous Rx's ?Medication ?Instructions ?Recorded colchicine 0.6 mg tablet 0.6 mg PO DAILY #30 tabs bumetanide 1 mg tablet 1 mg PO DAILY #60 tabs 06/11 clopidogrel 75 mg tablet 75 mg PO DAILY #90 tabs 06/07 12/01 empagliflozin 10 mg tablet 10 mg PO DAILY #30 tabs (Jardiance) hydrocodone 5 mg-acetaminophen 325 1 tab PO Q8H PRN pa in 7 days #21 07/03/24 mg tablet tabs magnesium oxide 400 mg (241.3 mg 400 mg PO DAILY #90 t abs 07/22/24 magnesium) tablet potassium chloride 10 mEq 10 meq PO BID PRN take day y ou 09/12/24 tablet,extended release (Klor-Con) take lasix #1 tab promethazine 25 mg tablet 25 mg PO Q6H PRN nausea and 10/06/24 vomiting #20 tabs Allergies Allergy/AdvReac Type Severity Reaction Status Date / Time adhesive tape Allergy Intermediate rash Verified 10/06/24 10:10 sulfamethoxazole (From Allergy SWOLLEN Verified 10/06/24 10:10 Septra) TONGUE trimethoprim (From Septra) Allergy SWOLLEN Verified 10/06/24 10:10 TONGUE Review of Systems 2 Const: Denies: fever(s) or chills Card: Reports: chest pain Resp: Denies: dyspnea GI: Denies: abdominal pain : Denies: dysuria, urinary frequency or urinary urgency Musc: Denies: neck pain or back pain Skin/Breast: Denies: rash PFSH ED 2 PFSH: Medical History ICD (implantable cardioverter-defibrillator) in place ST elevation myocardial infarction (STEMI) Ischemic cardiomyopathy Chest pain Gout attack Degenerative joint disease (DJD) of lumbar spine DJD (degenerative joint disease) of cervical spine Anesthesia complication prolonged sedation after anesthesia 06/26/2022 requiring ICU monitoring but no other intervention, not responsive to narcan; took 5-6 hours to wake up after surgery. Only thing identified is he had not slept for several days prior to surgery. Chronic migraine Depression Prediabetes History of narcotic use with prior pain treatment contract, not using regular narcotic pain control as of 06/26/2022 History of psychiatric care Acute encephalopathy Hypertension GERD (gastroesophageal reflux disease) Hyperlipidemia History of electroencephalogram 11/04/20 This was a normal routine EEG, awake and drowsy and asleep, with no behavioral or electrographic epileptiform activity. This patient was excessively sleepy and was not sleep deprived. Consider a sleep disorder if clinically appropriate. Bipolar disorder Gout [place] tick fever History of Holter monitoring 09/2019 baseline sinus tachycardia with heart rate of 135 bpm, no pauses or bradycardia, diminished heart rate variability 12/2019 baseline sinus rhythm at 94 bpm, symptomatic sinus tachycardia with heart rate 72-126 bpm Hyperparathyroidism s/p partial parathyroidectomy Bleeding per rectum Had anoscope done by Dr Garcia 08/30/2020 with no fistulae, sinuses, induration, abscess formation or fissures = normal findings Other stimulant dependence, in remission prior methamphetamine use Bilateral renal stones Has seen Dr Bhatti in past, non-obstructive, remote lithotripsy, otherwise monitored for symptoms Cervical disc disease With cervical radiculopathy, spondylosis, spondylosis with myelopathy B12 deficiency 09/2019 Generalized anxiety disorder Cannabis dependence, uncomplicated history, unknown if still using as of 06/26/2022 Carpal tunnel syndrome, left upper limb by nerve conduction study performed 05/2019, has not had surgery as of 06/26/2022 Surgical History Status post cervical discectomy 06/26/2022 Dr Mcghee anterior cervical discectomy C4/C5 with insertion of cage, instrumentation with anterior plate C4-C5, with C4-C7 posterior fusion and instrumentation, use of allograft History of esophagogastroduodenoscopy (EGD) 2015 History of colonoscopy 2015 S/P extracorporeal shock wave therapy History of parathyroidectomy partial, performed by Dr Henderson, never followed-up after surgery History of lumbar laminectomy 09/01/2020 Dr Mcghee L4/5 with bilateral partial facetectomy History of neck surgery 03/24/2020 Dr Mcghee Anterior discectomy with insertion of cage/instrumentation/use of allograft and anterior plate at C5/6 & C6/7 History of cholecystectomy History of knee surgery Left knee arthroscopy 08/[address] Campbell, had MRSA Family History Brother Hypertension Valvular heart disease Grandfather Hypertension History of open heart surgery Father History of open heart surgery Social History Smoking and tobacco/nicotine status: current every day tobacco/nicotine user (vape) cigarettes Years cigarettes smoked: 35 Alcohol intake: current Alcohol intake frequency: few times a week Alcohol type: beer Substance/Drug Use: former Household members: other Details: lives with mother who is a former [employer] [facility] [employer] nurse Marital status: Current occupational status: unemployed and disabled Physical Exam 2 Const: GENERAL APPEARANCE: cooperative ORIENTATION/CONSCIOUSNESS: Yes awake, Yes oriented to person, Yes oriented to place and Yes oriented to time HENMT: COMMON NORMALS: normocephalic, atraumatic and hearing grossly normal bilaterally HEAD & SCALP: normocephalic and atraumatic Resp: COMMON NORMALS: normal respiratory effort, No retractions, No use of accessory muscles and clear to auscultation bilaterally AUSCULTATION: clear to auscultation bilaterally Cardio: COMMON NORMALS: regular rate, regular rhythm and No murmurs present (Cardio) RATE: regular rate RHYTHM: regular rhythm GI: COMMON NORMALS: Soft to palpation and No hepatosplenomegaly present A USCULTATION: Yes normoactive bowel sounds PALPATION: Yes Soft to palpation, No Tenderness to palpation present (GI), No Guarding due to palpation present (GI) and Yes No hepatosplenomegaly present Extremity: COMMON NORMALS: normal to inspection, capillary refill normal, no clubbing, cyanosis or edema, no calf tenderness and no pedal edema Neuro: SENSORIUM/ORIENTATION: Yes oriented to person, Yes oriented to place and Yes oriented to time Skin: COMMON NORMALS: no rashes or lesions noted GENERAL SKIN EXAM: no rashes or lesions noted Course 2 Vital Signs: Vital signs: Vital Signs Temperature 97.5 F L 10/06/24 09:59 Pulse Rate 80 10/06/24 15:59 Blood Pressure 113/87 10/06/24 15:59 Pulse Oximetry 96 10/06/24 15:59 Oxygen Delivery Me thod Room Air 10/06/24 15:30 MDM - Dizziness Medical Decision Making Use time went to the room to review the findings with the patient he had no new complaint. Cardiac enzymes negative EKG does not show as he was chest x-ray was normal his urine was normal his CT of his abdomen was finally ordered when he continued to complain of flank pain this also showed no acute findings. I went to discuss this with him he states he suddenly felt much better and wished to go home. Will discharge patient home clearcut after 24 to 48 hours and use promethazine as needed. If has recurrent symptoms can follow-up in the emergency room or with his primary care doctor. Medical Records I reviewed the patient's medical records. Lab Data I reviewed the patient's lab results. 10/06/24 10:45 10/06/24 10:45 Radiology Impressions Chest X-Ray 10/06/24 10:11 IMPRESSION: Stable chest without acute abnormality. Abdomen/Pelvis CT 10/06/24 13:54 IMPRESSION: 1. Colonic diverticulosis without compelling CT evidence for acute diverticulitis. 2. Bilateral nephrolithiasis. No significant hydronephrosis. 3. Stable hepatic and bilateral renal cysts. 4. Hypodense 2 cm focus in the left hepatic lobe which could potentially represent a cyst or hemangioma, but is incompletely characterized on this exam. This is not significantly changed since March 17, 2024. Ultrasound may be helpful for further evaluation on a nonemergent basis. 5. Avascular necrosis involving the femoral heads bilaterally, not significantly changed. Laboratory Results WBC 9.73 10^3/uL (3.29-11.43) 10/06/24 10:45 RBC 5.05 10^6/uL (3.85-5.65) 10/06/24 10:45 Hgb 15.10 g/dL (11.27-16.99) 10/06/24 10:45 Hct 44.7 % (37-53) 10/06/24 10:45 MCV 88.5 fl (82-101) 10/06/24 10:45 MCH 29.9 pg (27-33) 10/06/24 10:45 MCHC 33.8 g/dL (30-55) 10/06/24 10:45 RDW 16.6 % (12.1-15.1) H 10/06/24 10:45 Plt Count 196 10^3/cmm (157-399) 10/06/24 10:45 MPV 10.2 fL (7.4-10.4) 10/06/24 10:45 Neut % (Auto) 51.9 % 10/06/24 10:45 Lymph % (Auto) 35.5 % 10/06/24 10:45 [place] % (Auto) 10.5 % 10/06/24 10:45 Eos % (Auto) 1.3 % 10/06/24 10:45 Baso % (Auto) 0.2 % 10/06/24 10:45 Neut # (Auto) 5.05 10^3/uL (1.8-7.7) 10/06/24 10:45 Lymph # (Auto) 3.5 10^3/uL (0.8-4.8) 10/06/24 10:45 [place] # (Auto) 1.0 10^3/uL (0.2-0.9) H 10/06/24 10:45 Eos # (Auto) 0.1 10^3/uL (0.0-0.8) 10/06/24 10:45 Baso # (Auto) 0.0 10^3/uL (0.0-0.1) 10/06/24 10:45 Nucleated RBC % (auto) 0 % 10/06/24 10:45 Nucleated RBCs # 0.0 /100WBC 10/06/24 10:45 Sodium 136 mmol/L (136-145) 10/06/24 10:45 Potassium 3.7 mmol/L (3.5-5.1) 10/06/24 10:45 Chloride 96 mmol/L (98-107) L 10/06/24 10:45 Carbon Dioxide 23 mmol/L (22-29) 10/06/24 10:45 Anion Gap 20.7 (5-19) H 10/06/24 10:45 BUN 18 mg/dL (6-20) 10/06/24 10:45 Creatinine 1.5 mg/dL (0.7-1.2) H 10/06/24 10:45 GFR Calculation 48.8 mL/min (90-130) L 10/06/24 10:45 Glucose 108 mg/dL (65-115) 10/06/24 10:45 Calculated Osmolality 284 mOsm/kg (285-295) L 10/06/24 10:45 Calcium 10.2 mg/dL (8.5-10.5) 10/06/24 10:45 Total Bilirubin 1.0 mg/dL (0.15-1.2) 10/06/24 10:45 AST 22 U/L (0-40) 10/06/24 10:45 ALT 23 U/L (0-41) 10/06/24 10:45 Alkaline Phosphatase 164 U/L (40-130) H 10/06/24 10:45 Troponin T Baseline 11 ng/L (0-15) 10/06/24 10:45 Troponin T 120 Minute 10.82 ng/L (0-15) 10/06/24 12:41 Delta Troponin T -0.18 ABS# (0-10) L 10/06/24 12:41 Total Protein 7.7 g/dL (6.6-8.7) 10/06/24 10:45 Albumin 4.6 g/dL (3.5-5.2) 10/06/24 10:45 Globulin 3.1 g/dL (1.3-4.6) 10/06/24 10:45 Urine Color Yellow (Yellow) 10/06/24 13:36 Urine Appearance Clear (CLEAR) 10/06/24 13:36 Urine pH 5.5 (5-7) 10/06/24 13:36 Ur Specific [place] 1.025 (1.005-1.030) 10/06/24 13:36 Urine Protein Trace (Negative) A 10/06/24 13:36 Urine Glucose (UA) 3+ (Normal) H 10/06/24 13:36 Urine Ketones Trace (Negative) 10/06/24 13:36 Urine Blood Negative (Negative) 10/06/24 13:36 Urine Nitrate Negative (Negative) 10/06/24 13:36 Urine Bilirubin Negative (Negative) 10/06/24 13:36 Urine Urobilinogen 0.2 mg/dL (Negative) 10/06/24 13:36 Ur Leukocyte Esterase Negative (Negative) 10/06/24 13:36 Urine RBC 0-2 /hpf (0-2) 10/06/24 13:36 Urine WBC 0-5 /hpf (0-5) 10/06/24 13:36 Ur Squamous Epith Cells 0-5 /hpf (0-5) 10/06/24 13:36 Amorphous Sediment Not Reportable 10/06/24 13:36 Urine Bacteria None seen /hpf (NONE) 10/06/24 13:36 Hyaline Casts 4.11 /lpf 10/06/24 13:36 All radiology interpretation(s) finalized by discharge Discharge Plan Discharge Patient Disposition: Home Clinical Impression: Abdominal pain, Nausea & vomiting, Chest pain, musculoskeletal Condition: Stable Prescriptions: New promethazine 25 mg tablet 25 mg PO Q6H PRN (Reason: nausea and vomiting) Qty: 20 0RF No Action Jardiance 10 mg tablet 10 mg PO DAILY Qty: 30 2RF clopidogrel 75 mg tablet 75 mg PO DAILY Qty: 90 3RF Entresto 24-26 mg tablet 1 tab PO BID hydrocodone-acetaminophen 5-325 mg tablet 1 tab PO Q8H PRN (Reason: pain) 7 Days Qty: 21 0RF magnesium oxide 400 mg (241.3 mg magnesium) tablet 400 mg PO DAILY Qty: 90 0RF diazepam 2 mg tablet 2 mg PO BEDTIME atorvastatin 40 mg tablet 40 mg PO QPM aspirin 81 mg tablet,delayed release (DR/EC) 81 mg PO DAILY pantoprazole 40 mg tablet,delayed release (DR/EC) 40 mg PO DAILY nitroglycerin 0.4 mg tablet, sublingual 0.4 mg sublingual PRN PRN (Reason: Pain) allopurinol 300 mg tablet 300 mg PO QPM colchicine 0.6 mg tablet 0.6 mg PO DAILY Qty: 30 0RF omega 5-jet-lqj-fish oil 35-25-5-113.5 mg Tablet,Chewable 1 tab PO DAILY bumetanide 1 mg Tablet 1 mg PO DAILY Qty: 60 0RF furosemide 40 mg tablet 40 mg PO DAILY PRN (Reason: Weight Gain) diazepam 5 mg tablet 5 mg PO DAILY PRN (Reason: Anxiety) metoprolol succinate 25 mg tablet extended release 24 hr 25 mg PO DAILY potassium chloride [Klor-Con 10] 10 mEq tablet extended release 10 meq PO BID PRN (Reason: take day you take lasix) Qty: 1 0RF Discharge Orders: Discharge ED (Routine); Ordered 10/06/24 Ordered By: Nathnaiel Harding Referrals: Soto Escamilla MD [Primary Care Provider, Family Practice] Patient Instructions: Abdominal Pain (ED), Opioid Safety, Pain Management, Patient Portal & Brian Instructions Activity Restrictions/Additional Instructions: Thank you for choosing [facility] for your healthcare needs today. It is very important that you follow up as instructed or that you return to the Emergency Department should you have concerns or if your condition changes or worsens in any way. You are seen in the emergency room with several different complaints chief complaint of side pain abdominal pain and chest pain. Cardiac workup EKGs cardiac enzymes CTA of your abdomen chest x-ray and urine all showed normal results no clinically significant abnormalities. Will discharge home with recommend clear cadet for 24 to 48 hours and then advance as tolerated. Also recommend using promethazine as needed for nausea vomiting Print Language: Qatari Coding Level of Care Code ED Business Services Manager for Caty Juarez
[2024-10-06 11:03] LABS: Basophils % 0.2 %; Eosinophils # 0.1 10^3/uL (0.0-0.8); Eosinophils % 1.3 %; Hematocrit 44.7 % (37-53); Lymphocytes # 3.5 10^3/uL (0.8-4.8); Lymphocytes % 35.5 %; Mean Corpuscular HGB Conc 33.8 g/dL (30-55); Mean Corpuscular Hemoglobin 29.9 pg (27-33); Mean Corpuscular Volume 88.5 fl (82-101); Mean Platelet Volume 10.2 fL (7.4-10.4); Monocytes % 10.5 %; Neutrophils # 5.05 10^3/uL (1.8-7.7); Neutrophils % 51.9 %; Nucleated Red Blood Cells % 0 %; Platelet Count 196 10^3/cmm (157-399); Red Blood Count 5.05 10^6/uL (3.85-5.65); Red Cell Distribution Width 16.6 % (12.1-15.1); White Blood Count 9.73 10^3/uL (3.29-11.43)
[2024-10-06 11:23] LABS: Alanine Aminotransferase 23 U/L (0-41); Albumin Level 4.6 g/dL (3.5-5.2); Alkaline Phosphatase 164 U/L (40-130); Anion Gap 20.7 (5-19); Aspartate Amino Transferase 22 U/L (0-40); Blood Urea Nitrogen 18 mg/dL (6-20); Calcium 10.2 mg/dL (8.5-10.5); Carbon Dioxide 23 mmol/L (22-29); Chloride 96 mmol/L (98-107); Creatinine Clr Calc Pharmacy 59.3776; Globulin 3.1 g/dL (1.3-4.6); Glomerular Filtration Rate 48.8 mL/min (90-130); Glucose 108 mg/dL (65-115); Osmolality Calculated 284 mOsm/kg (285-295); Potassium 3.7 mmol/L (3.5-5.1); Sodium 136 mmol/L (136-145); Total Protein 7.7 g/dL (6.6-8.7)
[2024-10-06 11:25] LABS: Troponin(5th) Baseline 11 ng/L (0-15)
--- NOTE | 2024-10-06 12:11 | ECG_ITS ---
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 Measurements Intervals [place] Rate: 72 P: 48 AL: 188 QRS: -9 QRSD: 98 T: 114 QT: 425 QTc: 466 Interpretive Statements SINUS RHYTHM LOW QRS VOLTAGE IN PRECORDIAL LEADS [QRS DEFLECTION < 1.0 mV IN CHEST LEADS] SEPTAL MYOCARDIAL INFARCTION , OF INDETERMINATE AGE [40+ ms Q WAVE IN V1/V2] Compared to ECG 09/12/2024 16:03:57 T-wave abnormality no longer present Possible ischemia no longer present Myocardial infarct finding still present Electronically Signed On 10-09-2024 09:35:19 CDT by Pranay Alcocer M.D. [email or web address]
[2024-10-06 13:07] LABS: Troponin 5 2HR 10.82 ng/L (0-15)
[2024-10-06 13:12] LABS: Troponin 5 2HR Delta -0.18 ABS# (0-10)
[2024-10-06 13:43] LABS: Bilirubin Urine Negative (Negative); Blood Urine Negative (Negative); Glucose Urine UA 3+ (Normal); Ketones Urine Trace (Negative); Leukocyte Esterase Urine Negative (Negative); Nitrate Urine Negative (Negative); Protein Urine Trace (Negative); Specific Gravity, Urine 1.025 (1.005-1.030); Urine Appearance Clear (CLEAR); Urine Color Yellow (Yellow); Urobilinogen Urine 0.2 mg/dL (Negative); pH Urine 5.5 (5-7)
[2024-10-06 13:48] LABS: Add Urine Microscopic? YES; Bacteria Urine None Seen /hpf; Hyaline Casts Urine 4.11 /lpf; RBC Urine 0-2 /hpf (0-2); Squamous Epithelial Cell Urine 0-5 /hpf (0-5); WBC Urine 0-5 /hpf (0-5)
--- NOTE | 2024-10-06 13:54 | CTR_ITS ---
PROCEDURE INFORMATION: Exam: CT Abdomen And Pelvis Without Contrast Exam date and time: 10/06/2024 2:02 PM Age: 53 years old Clinical indication: Abdominal pain; Flank; Other: Bilateral; Prior surgery; Surgery date: 6+ months; Surgery type: -c-spine, lumbar, gb, cardiac stents, parathyroid; Additional info: Flank pain TECHNIQUE: Imaging protocol: Computed tomography of the abdomen and pelvis without contrast. Radiation optimization: All CT scans at this facility use at least one of these dose optimization techniques: automated exposure control; mA and/or kV adjustment per patient size (includes targeted exams where dose is matched to clinical indication); or iterative reconstruction. COMPARISON: CT angio chest w abd pel w con 03/17/2024 8:26 AM RADIATION DOSE METRICS: Total DLP (mGy-cm): 886.96 FINDINGS: Lungs: Visualized lung bases are clear. Liver: There are several hepatic cysts, stable in appearance. There is also a subtle 2 cm hypodense focus in the left hepatic lobe which is incompletely characterized and could potentially represent a cyst or hemangioma. This is not significantly changed compared to the prior study. Gallbladder and biliary ducts: Surgically absent. No significant biliary ductal dilatation. Pancreas: Mild fatty atrophy. Spleen: Unremarkable. Adrenal glands: Unremarkable. Kidneys and ureters: There are small nonobstructing bilateral renal calculi. No ureteral calculi are detected. There are several bilateral renal cysts, stable in appearance. No significant hydronephrosis. Stomach and bowel: Small and large bowel loops are normal in caliber. There are multiple diverticula involving the descending and sigmoid colon. There does not appear to be significant stranding of the adjacent fat to suggest acute diverticulitis. Appendix: The appendix is normal in caliber. No evidence of acute appendicitis. Intraperitoneal space: Unremarkable. No free air. No significant fluid collection. Vasculature: The abdominal aorta is normal in caliber. There is mild atherosclerotic calcification. No abdominal aortic aneurysm. Previously seen soft tissues surrounding the right femoral artery is no longer present. Lymph nodes: Subcentimeter retroperitoneal lymph nodes are noted. No enlarged lymph nodes. Urinary bladder: Unremarkable as visualized. Reproductive: Unremarkable as visualized. Bones/joints: Intact. No acute fracture. There are areas of increased sclerosis within the femoral heads bilaterally compatible with avascular necrosis, also seen on the prior study. Soft tissues: There is a small fat containing right inguinal hernia and tiny fat containing left inguinal hernia and umbilical hernia. CT/CT kidney stone [id number] IMPRESSION: 1. Colonic diverticulosis without compelling CT evidence for acute diverticulitis. 2. Bilateral nephrolithiasis. No significant hydronephrosis. 3. Stable hepatic and bilateral renal cysts. 4. Hypodense 2 cm focus in the left hepatic lobe which could potentially represent a cyst or hemangioma, but is incompletely characterized on this exam. This is not significantly changed since March 17, 2024. Ultrasound may be helpful for further evaluation on a nonemergent basis. 5. Avascular necrosis involving the femoral heads bilaterally, not significantly changed.
== END 2024-10-06 16:00 | disposition home or self-care (01) ==
PROVIDERS: Emergency Provider Family Medicine; PCP Family Medicine
DX: R10.9 Unspecified abdominal pain (principal); R11.2 Nausea with vomiting, unspecified; R07.89 Other chest pain; Z79.02 Long term (current) use of antithrombotics/antiplatelets; F17.290 Nicotine dependence, other tobacco product, uncomplicated; I10 Essential (primary) hypertension
CPT/HCPCS: 71045; 74176; 80053; 81001; 84484; 85025; 93005; 99285; J9999

== ENCOUNTER → 2024-10-16 13:15 | Outpatient (BNVA) | payer MEDICAID, SELFPAY ==
[2024-05-15 13:16] VITALS: BP 106/69; BMI 29.4
== END ==
PROVIDERS: PCP Family Medicine; Visit Provider Specialist
DX: G43.711 Chronic migraine without aura, intractable, with status migrainosus (principal)
CPT/HCPCS: 64615; J0585; J9999

== ENCOUNTER → 2025-01-29 09:27 | Outpatient (BNVA) | payer MEDICAID, SELFPAY ==
[2024-05-15 13:16] VITALS: BP 106/69; BMI 29.4
== END ==
PROVIDERS: PCP Family Medicine; Visit Provider Specialist
DX: G43.711 Chronic migraine without aura, intractable, with status migrainosus (principal)
CPT/HCPCS: 64615; J0585; J9999

== ENCOUNTER → 2025-02-26 14:32 | Outpatient (BNVA) | payer MEDICAID, SELFPAY ==
[2024-05-15 13:16] VITALS: BP 106/69; BMI 29.4
== END ==
PROVIDERS: PCP Family Medicine; Visit Provider Internal Medicine
DX: I25.5 Ischemic cardiomyopathy (principal); I25.118 Atherosclerotic heart disease of native coronary artery with other forms of angina pectoris; I95.9 Hypotension, unspecified; I10 Essential (primary) hypertension; I42.8 Other cardiomyopathies; I25.10 Atherosclerotic heart disease of native coronary artery without angina pectoris
CPT/HCPCS: 36415; 80048; 99214